=== PATIENT | female | born 1950 | race Hispanic/Latino ===

== ENCOUNTER 2017-03-31 09:55 | Emergency (ER) | payer MEDICARE ==
--- NOTE | 2017-03-31 11:45 | Emergency Department Report ---
HPI - General Chief Complaint: Seizure Time Seen by Provider: 03/31/17 11:07 - HPI HPI: Room 2 The patient is a 67-year-old female presented chief complaint of "shaking and falling." The patient states for the past 5 months she's had episodes where she begins "jerking real bad" and falls to the floor. The patient states she remains conscious during these episodes but they have been occurring nearly every day since October 2016. The patient states she saw her neurologist Dr. Brothers in October and he felt as though she was having seizures and started her on a seizure medication (patient states she cannot remember the name of the medication). The patient states she took it for 3 days but her symptoms worsen so she stopped. The patient states she has not followed up with her neurologist. The patient has seen an information assistant because her right eye "pulls" to the left. Per the patient information assistant has not given her diagnoses as of yet wishes to see her later this month. The patient comes to the emergency department because the symptoms are continuing. The patient states her last episode occurred this morning and they usually last approximately 2-3 minutes. Location: [See above] Duration: 5 months Quality: "Jerking" Severity: Moderate Modifying factors: [see above] Context: [see above] Mode of transportation: [not driving] ED Past Medical Hx - Past Medical History Hx Congestive Heart Failure: Yes Hx Diabetes: Yes Hx GERD: Yes Hx COPD: Yes - Surgical History Hx Open Heart Surgery: Yes - Family History Family history: no significant - Social History Smoking Status: Current Every Day Smoker (1/4 pack per day) Substance Use Type: None (denies illicit drug use) - Medications Home Medications: Home Medications Medication Instructions Recorded Confirmed Last Taken Type AtorvaSTATin 40 mg PO DAILY 06/23/15 06/23/15 06/22/15 History Carvedilol 6.25 mg PO BID 06/23/15 06/23/15 06/22/15 History Duloxetine HCl [Cymbalta] 60 mg PO DAILY 06/23/15 06/23/15 06/22/15 History Furosemide 20 mg PO DAILY 06/23/15 06/23/15 06/22/15 History Gabapentin 300 mg PO TID 06/23/15 06/23/15 06/22/15 History Losartan/Hydrochlorothiazide 100 mg PO DAILY 06/23/15 06/23/1506/21/16 History Nitroglycerin 0.4 mg SL PRN PRN 06/23/15 06/23/15 Unknown History Omeprazole [PriLOSEC] 40 mg PO BID #60 cap 06/23/15 Unknown Rx Potassium 10 meq PO DAILY 06/23/15 06/23/15 06/22/15 History Ventolin HFA 90 mcg INHALATION BID PRN 06/23/15 06/23/15 06/22/15 History metFORMIN 1,000 mg PO BID 06/23/15 06/23/15 06/22/15 History tiZANidine 4 mg PO PRN 06/23/15 06/23/15 Unknown History ED Review of Systems ROS: Stated complaint: SEIZURE Other details as noted in HPI Eyes: other (OD pulls to the left) Neurological: other (jerking) Physical Exam - Physical Exam Vital Signs: Vital Signs 03/31/17 10:01 Temperature 97.6 F Pulse Rate 110 H Respiratory 20 Rate Blood Pressure 81/60 O2 Sat by Pulse 98 Oximetry Physical Exam: GENERAL: The patient is well-developed well-nourished female lying on stretcher not appear to be in acute distress. [] HEENT: Normocephalic. Atraumatic. Extraocular motions are intact. Patient has moist mucous membranes. NECK: Supple. No meningitic signs are noted. Trachea midline CHEST/LUNGS: Clear to auscultation. There is no respiratory distress noted. HEART/CARDIOVASCULAR: Regular. There is no tachycardia. There is no gallop rub or murmur. ABDOMEN: Abdomen is soft, nontender. Patient has normal bowel sounds. There is no abdominal distention. SKIN: There is no rash. There is no edema. There is no diaphoresis. NEURO: The patient is awake, alert, and oriented. The patient is cooperative. The patient has no focal neurologic deficits. The patient has normal speech. Cranial nerves II through XII grossly intact, no drift MUSCULOSKELETAL: There is no evidence of acute injury. ED Course Vital Signs 03/31/17 10:01 Temperature 97.6 F Pulse Rate 110 H Respiratory 20 Rate Blood Pressure 81/60 O2 Sat by Pulse 98 Oximetry - Consultations Consultation #1: 03/31/17 13:09 Dr. Brothers paged 03/31/17 13:[address] Kozinn- states the patient was given a prescription for gabapentin to help with twitching of the superior oblique muscle. Informed of patient's magnesium. He requests the patient call his office to schedule an appointment and she should be able to be seen very soon Consultation #2: 03/31/17 13:[address] Torres regarding magnesium repletion. States he will consult ED Medical Decision Making - Lab Data Result diagrams: 03/31/17 11:40 03/31/17 11:40 Laboratory Tests 03/31/17 03/31/17 03/31/17 10:38 11:40 11:40 WBC 8.4 RBC 4.00 Hgb 13.0 Hct 39.0 MCV 97 MCH 33 H MCHC 33 RDW 13.9 Plt Count 297 Lymph % (Auto) 19.3 [place] % (Auto) 5.4 Eos % (Auto) 2.0 Baso % (Auto) 0.7 Lymph # 1.6 [place] # 0.5 Eos # 0.2 Baso # 0.1 Seg Neutrophils % 72.6 H Seg Neutrophils # 6.1 PT 12.4 INR 0.88 APTT 31.8 Sodium Potassium Chloride Carbon Dioxide Anion Gap BUN Creatinine Estimated GFR BUN/Creatinine Ratio Glucose POC Glucose 196 H Calcium Magnesium Total Creatine Kinase CK-MB (CK-2) CK-MB (CK-2) Rel Index Troponin T TSH Urine Opiates Screen Urine Methadone Screen Ur Barbiturates Screen Ur Phencyclidine Scrn Ur Amphetamines Screen U Benzodiazepines Scrn Urine Cocaine Screen U Marijuana (THC) Screen 03/31/17 03/31/17 03/31/17 11:40 11:40 12:35 WBC RBC Hgb Hct MCV MCH MCHC RDW Plt Count Lymph % (Auto) [place] % (Auto) Eos % (Auto) Baso % (Auto) Lymph # [place] # Eos # Baso # Seg Neutrophils % Seg Neutrophils # PT INR APTT Sodium 135 L Potassium 4.2 Chloride 92.2 L Carbon Dioxide 22 Anion Gap 25 BUN 10 Creatinine 0.5 L Estimated GFR > 60 BUN/Creatinine Ratio 20 Glucose 153 H POC Glucose Calcium 9.6 Magnesium 1.20 L Total Creatine Kinase 50 CK-MB (CK-2) 1.9 CK-MB (CK-2) Rel Index 3.8 Troponin T < 0.010 TSH 0.382 Urine Opiates Screen Presumptive negative Urine Methadone Screen Presumptive negative Ur Barbiturates Screen Presumptive negative Ur Phencyclidine Scrn Presumptive negative Ur Amphetamines Screen Presumptive negative U Benzodiazepines Scrn Presumptive negative Urine Cocaine Screen Presumptive negative U Marijuana (THC) Screen Presumptive negative Laboratory Tests 03/31/17 03/31/17 03/31/17 10:38 11:40 11:40 WBC 8.4 RBC 4.00 Hgb 13.0 Hct 39.0 MCV 97 MCH 33 H MCHC 33 RDW 13.9 Plt Count 297 Lymph % (Auto) 19.3 [place] % (Auto) 5.4 Eos % (Auto) 2.0 Baso % (Auto) 0.7 Lymph # 1.6 [place] # 0.5 Eos # 0.2 Baso # 0.1 Seg Neutrophils % 72.6 H Seg Neutrophils # 6.1 PT 12.4 INR 0.88 APTT 31.8 Sodium Potassium Chloride Carbon Dioxide Anion Gap BUN Creatinine Estimated GFR BUN/Creatinine Ratio Glucose POC Glucose 196 H Calcium Magnesium Total Creatine Kinase CK-MB (CK-2) CK-MB (CK-2) Rel Index Troponin T TSH Urine Opiates Screen Urine Methadone Screen Ur Barbiturates Screen Ur Phencyclidine Scrn Ur Amphetamines Screen U Benzodiazepines Scrn Urine Cocaine Screen U Marijuana (THC) Screen Drugs of Abuse Note 03/31/17 03/31/17 03/31/17 11:40 11:40 12:35 WBC RBC Hgb Hct MCV MCH MCHC RDW Plt Count Lymph % (Auto) [place] % (Auto) Eos % (Auto) Baso % (Auto) Lymph # [place] # Eos # Baso # Seg Neutrophils % Seg Neutrophils # PT INR APTT Sodium 135 L Potassium 4.2 Chloride 92.2 L Carbon Dioxide 22 Anion Gap 25 BUN 10 Creatinine 0.5 L Estimated GFR > 60 BUN/Creatinine Ratio 20 Glucose 153 H POC Glucose Calcium 9.6 Magnesium 1.20 L Total Creatine Kinase 50 CK-MB (CK-2) 1.9 CK-MB (CK-2) Rel Index 3.8 Troponin T < 0.010 TSH 0.382 Urine Opiates Screen Presumptive negative Urine Methadone Screen Presumptive negative Ur Barbiturates Screen Presumptive negative Ur Phencyclidine Scrn Presumptive negative Ur Amphetamines Screen Presumptive negative U Benzodiazepines Scrn Presumptive negative Urine Cocaine Screen Presumptive negative U Marijuana (THC) Screen Presumptive negative Drugs of Abuse Note Disclamer - Radiology Data Radiology results: report reviewed (CT head), image reviewed (CT head) CT HEAD WITHOUT CONTRAST: HISTORY: Seizure. TECHNIQUE: Sequential 2.5mm CT images. COMPARISON: none. FINDINGS: No evidence for hemorrhage, mass or large area of acute ischemia noncontrast CT. There is a focal area of encephalomalacia in the left parietal white matter measuring up to 1.6 cm which probably represents a chronic ischemic insult. There is a similar appearing 5 mm area in the right parietal white matter. Ventricular size is within normal limits. The basal cisterns are clear. The posterior fossa contents are within normal limits. The visualized paranasal sinuses and mastoid air cells are well-aerated. IMPRESSION: No acute intracranial process. 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 Transcribed By: TTR Dictated By: JON DODD JR, MD Electronically Authenticated By: JON DODD JR, MD Signed Date/Time: 03/31/17 1210 DD/ 1209 TD/TT: 03/31/17 1210 - Differential Diagnosis seizures, pseudoseizures, anxiety, multiple sclerosis, hypomagnesemia Critical care attestation.: If time is entered above; I have spent that time in minutes in the direct care of this critically ill patient, excluding procedure time. ED Disposition Clinical Impression: Hypomagnesemia, Twitching Disposition: DC-01 TO HOME OR SELFCARE Is pt being admited?: No Does the pt Need Aspirin: No Condition: Stable Instructions: Hypomagnesemia (ED) Additional Instructions: Return to the emergency department immediately should you develop worsening symptoms, fever, inability to tolerate food or liquid or any other concerns. Referrals: PRIMARY CAREMD [Primary Care Provider] - 3-5 Days LOUIE BROTHERS MD [Staff Physician] - [facility] Time of Disposition: 13:26
[2017-03-31 12:15] LABS: Basophils # (Auto) 0.1 K/mm3 (0.0-0.1); Basophils % (Auto) 0.7 % (0.0-1.8); Eosinophils # (Auto) 0.2 K/mm3 (0.0-0.4); Lymphocytes # (Auto) 1.6 K/mm3 (1.2-5.4); Lymphocytes % (Auto) 19.3 % (13.4-35.0); Mean Corpuscular HGB Conc 33 % (30-34); Mean Corpuscular Hemoglobin 33 pg (28-32); Mean Corpuscular Volume 97 fl (79-97); Monocytes # (Auto) 0.5 K/mm3 (0.0-0.8); Monocytes % (Auto) 5.4 % (0.0-7.3); Platelet Count 297 K/mm3 (140-440); Red Cell Distribution Width 13.9 % (13.2-15.2)
--- NOTE | 2017-03-31 12:16 | Cat Scan Report ---
CT HEAD WITHOUT CONTRAST: HISTORY: Seizure. TECHNIQUE: Sequential 2.5mm CT images. COMPARISON: none. FINDINGS: No evidence for hemorrhage, mass or large area of acute ischemia noncontrast CT. There is a focal area of encephalomalacia in the left parietal white matter measuring up to 1.6 cm which probably represents a chronic ischemic insult. There is a similar appearing 5 mm area in the right parietal white matter. Ventricular size is within normal limits. The basal cisterns are clear. The posterior fossa contents are within normal limits. The visualized paranasal sinuses and mastoid air cells are well-aerated. IMPRESSION: No acute intracranial process. 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
[2017-03-31 12:24] LABS: INR 0.88 (0.87-1.13)
[2017-03-31 12:25] LABS: Partial Thromboplastin Time 31.8 Sec. (24.2-36.6)
[2017-03-31 12:57] LABS: Creatine Kinase MB 1.9 ng/mL (0.0-4.0)
[2017-03-31 12:58] LABS: BUN/Creatinine Ratio 20; Blood Urea Nitrogen 10 mg/dL (7-17); Calcium 9.6 mg/dL (8.4-10.2); Hemolysis Index 22
[2017-03-31 13:06] LABS: Amphetamine Screen,Urine PRESUMPTIVE NEGATIVE; Benzodiazepines Screen,Urine PRESUMPTIVE NEGATIVE; Cannabinoid Screen,Urine PRESUMPTIVE NEGATIVE; Cocaine Screen,Urine PRESUMPTIVE NEGATIVE; Methadone Screen,Urine PRESUMPTIVE NEGATIVE; Opiate Screen,Urine PRESUMPTIVE NEGATIVE
[2017-03-31] MEDS ORDERED: MAGNESIUM SULFATE 2GM/50ML 2 GM/50 ML BAG IV ONE (13:07)
--- NOTE | 2017-03-31 13:36 | History and Physical Report ---
Medications and Allergies Allergies Allergy/AdvReac Type Severity Reaction Status Date / Time acetaminophen [From Tylenol] Allergy CAUSES Verified 06/23/15 10:22 ISSUE WITH LIVER Antihistamines - Alkylamine Allergy Shortness Verified 06/23/15 10:22 of Breath codeine Allergy Headache Verified 06/23/15 10:22 Penicillins Allergy Angioedema Verified 06/23/15 10:22 Sulfa (Sulfonamide Allergy Rash Verified 06/23/15 10:22 Antibiotics) ANTIBIOTICS Allergy Severe EXTREME Uncoded 06/23/15 09:34 STOMACH PAIN Home Medications Medication Instructions Recorded Confirmed Last Taken Type AtorvaSTATin 40 mg PO DAILY 06/23/15 06/23/15 06/22/15 History Carvedilol 6.25 mg PO BID 06/23/15 06/23/15 06/22/15 History Duloxetine HCl [Cymbalta] 60 mg PO DAILY 06/23/15 06/23/15 06/22/15 History Furosemide 20 mg PO DAILY 06/23/15 06/23/15 06/22/15 History Gabapentin 300 mg PO TID 06/23/15 06/23/15 06/22/15 History Losartan/Hydrochlorothiazide 100 mg PO DAILY 06/23/15 06/23/15 06/22/15 History Nitroglycerin 0.4 mg SL PRN PRN 06/23/15 06/23/15 Unknown History Omeprazole [PriLOSEC] 40 mg PO BID #60 cap 06/23/15 Unknown Rx Potassium 10 meq PO DAILY 06/23/15 06/23/15 06/22/15 History Ventolin HFA 90 mcg INHALATION BID PRN 06/23/15 06/23/15 06/22/15 History metFORMIN 1,000 mg PO BID 06/23/15 06/23/15 06/22/15 History tiZANidine 4 mg PO PRN 06/23/15 06/23/15 Unknown History Magnesium 250 mg PO DAILY #5 tablet 03/31/17 Unknown Rx Active Meds: Active Medications Magnesium Sulfate (Magnesium Sulfate 2gm/50ml) 2 gm in 50 mls @ 100 mls/hr IV ONCE ONE Stop: 03/31/17 13:36 Last Admin: 03/31/17 13:34 Dose: 100 mls/hr Exam - Constitutional Vitals: Temp Pulse Resp BP Pulse Ox 97.6 F 110 H 20 81/60 98 03/31/17 10:01 03/31/17 10:01 03/31/17 10:01 03/31/17 10:01 03/31/17 10:01 Results - Labs CBC & Chem 7: 03/31/17 11:40 03/31/17 11:40 Labs: Abnormal lab results 03/31/17 03/31/17 03/31/17 Range/Units 10:38 11:40 11:40 MCH 33 H (28-32) pg Seg Neutrophils % 72.6 H (40.0-70.0) % Sodium 135 L (137-145) mmol/L Chloride 92.2 L (98-107) mmol/L Creatinine 0.5 L (0.7-1.2) mg/dL Glucose 153 H (65-100) mg/dL POC Glucose 196 H (70-105) Magnesium 1.20 L (1.7-2.3) mg/dL
[2017-03-31 13:39] LABS: Free T4 (Free Thyroxine) 1.35 ng/dL (0.76-1.46)
[2017-03-31 14:14] VITALS: BP 134/56
--- NOTE | 2017-04-01 05:39 | Consultation ---
History of Present Illness - Reason for Consult Consult date: 03/31/17 Requesting physician: JOSE L GUZMAN - History of Present Illness 67 YO Female with CHF, DM, GERD, COPD,CAD S/P CABG, Nicotine Dependence presents to ED for evaluation. Pt consult placed for hypomagnesemia. Pt seen and evaluated in ED and found to have no acute complaints. Pt magnesium repleted , and patient treated with oral supplementation. Pt instructed to f/u pcp within 1wk, and neurology at discharge for f/u care. Past History Past Medical History: CAD, COPD, diabetes, GERD, heart failure Past Surgical History: CABG Social history: , smoking Family history: no significant family history (reviewed) Medications and Allergies Allergies Allergy/AdvReac Type Severity Reaction Status Date / Time acetaminophen [From Tylenol] Allergy CAUSES Verified 06/23/15 10:22 ISSUE WITH LIVER Antihistamines - Alkylamine Allergy Shortness Verified 06/23/15 10:22 of Breath codeine Allergy Headache Verified 06/23/15 10:22 Penicillins Allergy Angioedema Verified 06/23/15 10:22 Sulfa (Sulfonamide Allergy Rash Verified 06/23/15 10:22 Antibiotics) ANTIBIOTICS Allergy Severe EXTREME Uncoded 06/23/15 09:34 STOMACH PAIN Home Medications Medication Instructions Recorded Confirmed Last Taken Type AtorvaSTATin 40 mg PO DAILY 06/23/15 06/23/15 06/22/15 History Carvedilol 6.25 mg PO BID 06/23/15 06/23/15 06/22/15 History Duloxetine HCl [Cymbalta] 60 mg PO DAILY 06/23/15 06/23/15 06/22/15 History Furosemide 20 mg PO DAILY 06/23/15 06/23/15 06/22/15 History Gabapentin 300 mg PO TID 06/23/15 06/23/15 06/22/15 History Losartan/Hydrochlorothiazide 100 mg PO DAILY 06/23/15 06/23/15 06/22/15 History Nitroglycerin 0.4 mg SL PRN PRN 06/23/15 06/23/15 Unknown History Omeprazole [PriLOSEC] 40 mg PO BID #60 cap 06/23/15 Unknown Rx Potassium 10 meq PO DAILY 06/23/15 06/23/15 06/22/15 History Ventolin HFA 90 mcg INHALATION BID PRN 06/23/15 06/23/15 06/22/15 History metFORMIN 1,000 mg PO BID 06/23/15 06/23/15 06/22/15 History tiZANidine 4 mg PO PRN 06/23/15 06/23/15 Unknown History Magnesium 250 mg PO DAILY #5 tablet 03/31/17 Unknown Rx Review of Systems Constitutional: no weight loss, no weight gain, no fever, no chills Ears, nose, mouth and throat: no ear pain, no ear discharge, no tinnitis, no decreased hearing, no nose pain Breasts: no change in shape, no swelling, no mass Cardiovascular: no chest pain, no orthopnea, no palpitations, no rapid/ irregular heart beat Respiratory: no cough, no cough with sputum, no excessive sputum, no shortness of breath Gastrointestinal: no abdominal pain, no nausea, no vomiting, no diarrhea Genitourinary Female: no pelvic pain, no flank pain, no menorrhagia, no dysuria , no urinary frequency, no urgency Rectal: no pain, no incontinence, no bleeding Musculoskeletal: no neck stiffness, no neck pain, no shooting arm pain, no arm numbness/tingling, no low back pain Integumentary: no rash, no pruritis, no redness, no sores, no wounds Neurological: no transient paralysis, no paralysis, no weakness, no parathesias , no numbness Psychiatric: no anxiety, no memory loss, no change in sleep habits, no insomnia , no hypersomnia Endocrine: no cold intolerance, no heat intolerance, no polyphagia, no excessive thirst, no polydipsia, no polyuria Hematologic/Lymphatic: no easy bruising, no easy bleeding, no lymphadenopathy, no lymphedema Allergic/Immunologic: no urticaria, no allergic rhinitis, no wheezing, no persistent infections, no anaphylaxis, no angioedema Exam - Constitutional Vitals: Temp Pulse Resp BP Pulse Ox 97.6 F 100 H 16 134/56 95 03/31/17 10:01 03/31/17 14:13 03/31/17 14:13 03/31/17 14:13 03/31/17 14:13 General appearance: Present: obese - EENT Eyes: Present: PERRL ENT: hearing intact, clear oral mucosa - Neck Neck: Present: supple, normal ROM - Respiratory Respiratory effort: normal Respiratory: bilateral: CTA - Cardiovascular Heart Sounds: Present: S1 & S2. Absent: rub, click - Extremities Extremities: pulses symmetrical, No edema Peripheral Pulses: within normal limits - Abdominal General gastrointestinal: Present: soft, non-tender, non-distended, normal bowel sounds Female genitourinary: Present: normal - Integumentary Integumentary: Present: clear, warm, dry - Musculoskeletal Musculoskeletal: gait normal, strength equal bilaterally - Psychiatric Psychiatric: appropriate mood/affect, intact judgment & insight - Neurologic Neurologic: CNII-XII intact, moves all extremities Results - Labs CBC & Chem 7: 03/31/17 11:40 03/31/17 11:40 Labs: Abnormal lab results 03/31/17 03/31/17 03/31/17 Range/Units 10:38 11:40 11:40 MCH 33 H (28-32) pg Seg Neutrophils % 72.6 H (40.0-70.0) % Sodium 135 L (137-145) mmol/L Chloride 92.2 L (98-107) mmol/L Creatinine 0.5 L (0.7-1.2) mg/dL Glucose 153 H (65-100) mg/dL POC Glucose 196 H (70-105) Magnesium 1.20 L (1.7-2.3) mg/dL Assessment and Plan - Patient Problems (1) Hypomagnesemia Status: Acute Plan to address problem: Repleted, F/u pcp 1wk, Neurology at discharge.
== END 2017-03-31 14:14 | disposition home or self-care (01) ==
LOC: ED 09:55
DX: E83.42 Hypomagnesemia (principal); R25.3 Fasciculation
CPT/HCPCS: 36415; 70450; 80048; 80307; 82550; 82553; 82962; 83735; 84439; 84443; 84484; 85025; 85610; 85730; 93005; 93010; 96365; 99284; J3475

== ENCOUNTER 2018-04-23 11:45 | Inpatient (IN) | payer MEDICARE ==
[2018-04-23] MEDS ORDERED: SUBLIMAZE IV ONE (12:13)
[2018-04-23] MEDS ORDERED: ZOFRAN IV ONE (12:13)
--- NOTE | 2018-04-23 12:17 | Emergency Department Report ---
HPI - General Chief Complaint: Fall Time Seen by Provider: 04/23/18 12:00 - HPI HPI: Room 3 The patient is a 68-year-old female presenting with chief complaint of left hip pain. The patient states this morning she began to have one of her "tremors" which causes the left side of her body to go numb. The patient states then her left lower extremity "folded up under "her. Patient now complains of left hip pain and gives a score of 10/10. The patient states she had a drag himself across the floor to seek help. Patient denies loss of consciousness. Patient states she's had her "tremors" for approximately 1 year. The patient states intermittently she has these "tremors" that causes her left arm and left leg to go numb. The patient states the numbness usually lasts around 30 seconds and resolves. The patient states the only numbness that persists currently is in her left hand. Patient states the episode occurred at approximately 10:00 this morning Location: Left hip Duration: [See above] Quality: [See above] Severity: 10 Modifying factors: [see above] Context: [see above] Mode of transportation: [not driving] ED Past Medical Hx - Past Medical History Hx Congestive Heart Failure: Yes Hx Diabetes: Yes Hx GERD: Yes Hx COPD: Yes - Surgical History Hx Open Heart Surgery: Yes (2014) Additional Surgical History: Neck surgery, back surgery - Family History Family history: no significant - Social History Smoking Status: Current Some Day Smoker (cigars) Substance Use Type: None - Medications Home Medications: Home Medications Medication Instructions Recorded Confirmed Last Taken Type Albuterol Sulfate [Ventolin HFA] 2 puff IH Q4H PRN 04/23/18 04/23/18 Unknown History Aspirin [Aspirin EC] 81 mg PO DAILY 04/23/18 04/23/18 Unknown History Atenolol [Tenormin] 50 mg PO DAILY 04/23/18 04/23/18 Unknown History Atorvastatin Calcium 80 mg PO DAILY 04/23/18 04/23/18 Unknown History Duloxetine HCl [Cymbalta] 60 mg PO DAILY 04/23/18 04/23/18 Unknown History Furosemide [Lasix TAB] 40 mg PO QDAY 04/23/18 04/23/18 Unknown History Gabapentin [Neurontin] 600 mg PO BID 04/23/18 04/23/18 Unknown History Losartan [Cozaar] 25 mg PO QDAY 04/23/18 04/23/18 Unknown History Metformin HCl [Glucophage] 1,000 mg PO BID 04/23/18 04/23/18 Unknown History Omeprazole 40 mg PO DAILY 04/23/18 04/23/18 Unknown History Potassium Chloride 10 meq PO DAILY 04/23/18 04/23/18 Unknown History amLODIPine [Norvasc] 5 mg PO DAILY 04/23/18 04/23/18 Unknown History ED Review of Systems ROS: Stated complaint: FALL/HIP PAIN Other details as noted in HPI Constitutional: no symptoms reported Eyes: denies: eye pain ENT: denies: throat pain Respiratory: no symptoms reported Cardiovascular: denies: chest pain Endocrine: no symptoms reported Gastrointestinal: denies: abdominal pain Genitourinary: denies: dysuria Musculoskeletal: arthralgia Neurological: paresthesias Physical Exam - Physical Exam Physical Exam: GENERAL: The patient is well-developed well-nourished female lying on stretcher not appearing to be in acute distress. [] HEENT: Normocephalic. Atraumatic. Extraocular motions are intact. Patient has moist mucous membranes. NECK: Supple. Trachea midline CHEST/LUNGS: Clear to auscultation. There is no respiratory distress noted. HEART/CARDIOVASCULAR: Regular. There is no tachycardia. There is no gallop rub or murmur. ABDOMEN: Abdomen is soft, nontender. Patient has normal bowel sounds. There is no abdominal distention. SKIN: There is no rash. There is no edema. There is no diaphoresis. NEURO: The patient is awake, alert, and oriented. The patient is cooperative. The patient has no focal neurologic deficits. The patient has normal speech. MUSCULOSKELETAL: There is pain of the left hip. There is no tenderness to palpation of the remainder of the left lower extremity, right lower extremity, right upper extremity and left upper extremity. There is no evidence of acute injury. ED Course - Consultations Consultation #1: 04/23/18 14:08 Case discussed with orthopedic surgery Dr. Hull ED Medical Decision Making - Lab Data Result diagrams: 04/23/18 13:11 04/23/18 13:11 Laboratory Tests 04/23/18 04/23/18 04/23/18 13:11 13:11 13:11 WBC 14.7 H RBC 3.43 L Hgb 10.8 Hct 33.2 MCV 97 MCH 32 MCHC 33 RDW 13.8 Plt Count 385 Lymph % (Auto) 4.8 L Stone % (Auto) 4.5 Eos % (Auto) 0.3 Baso % (Auto) 0.5 Lymph # 0.7 L Stone # 0.7 Eos # 0.0 Baso # 0.1 Seg Neutrophils % 89.9 H Seg Neutrophils # 13.2 H PT 13.2 INR 0.95 APTT 20.7 L Thrombin Time 15.2 Sodium 133 L Potassium 4.2 Chloride 87.8 L Carbon Dioxide 22 Anion Gap 27 BUN 12 Creatinine 0.7 Estimated GFR > 60 BUN/Creatinine Ratio 17 Glucose 146 H Calcium 9.5 Blood Type 04/23/18 13:11 WBC RBC Hgb Hct MCV MCH MCHC RDW Plt Count Lymph % (Auto) Stone % (Auto) Eos % (Auto) Baso % (Auto) Lymph # Stone # Eos # Baso # Seg Neutrophils % Seg Neutrophils # PT INR APTT Thrombin Time Sodium Potassium Chloride Carbon Dioxide Anion Gap BUN Creatinine Estimated GFR BUN/Creatinine Ratio Glucose Calcium Blood Type A NEGATIVE - EKG Data -: EKG Interpreted by Me EKG shows normal: sinus rhythm Rate: normal - EKG Data Interpretation: nonspecific ST-T wave carlee (T-wave inversion in lead V2) - Radiology Data Radiology results: report reviewed (CT head), image reviewed (left hip x-ray, CT head) interpreted by me: Left hip x-ray-left femoral neck fracture [facility] [address] [place] [address] Cat Scan Report Signed Patient: ANTONIO CHASE MR#: [id number] : 1950 Acct:[id number] Age/Sex: 68 / F ADM Date: 04/23/18 Loc: ED Attending Dr: Ordering Physician: JOSE L GUZMAN MD Date of Service: 04/23/18 Procedure(s): CT head/brain wo con Accession Number(s): [id number] cc: JOSE L GUZMAN MD FINAL REPORT EXAM: CT HEAD/BRAIN WO CON HISTORY: left-sided numbness, fall COMPARISON: None. TECHNIQUE: Multiple contiguous axial images were obtained from the skullbase to the vertex without administration of IV contrast. FINDINGS: There is age related cerebral cortical atrophy. There is no parenchymal hemorrhage or extra-axial fluid collection. There is no mass or mass effect. There no acute territorial infarct. There is encephalomalacia in the left parietal lobe and left periventricular white matter, which may be due to prior infarct or demyelinating disease. There are patchy areas of decreased attenuation in the subcortical and periventricular white matter, likely due to chronic microvascular ischemic disease. The ventricles are midline. The subarachnoid spaces and basilar cisterns are clear. There is no skull fracture. The paranasal sinuses and mastoid air cells are clear. IMPRESSION: No acute intracranial abnormality. Encephalomalacia in the left parietal lobe that may be due to prior infarct or demyelinating disease. Patchy areas of decreased attenuation in the subcortical and periventricular white matter that may be due to chronic microvascular ischemic disease versus demyelinating disease. Transcribed By: WILEY Dictated By: BENTLEY MCINTYRE MD Electronically Authenticated By: BENTLEY MCINTYRE MD Signed Date/Time: 04/23/18 1322 DD/ 1320 TD/TT: 04/23/18 1320 [facility] [address] [place] [address] XRay Report Signed Patient: ANTONIO CHASE MR#: [id number] : 1950 Acct:[id number] Age/Sex: 68 / F ADM Date: 04/23/18 Loc: ED Attending Dr: Ordering Physician: JOSE L GUZMAN MD Date of Service: 04/23/18 Procedure(s): XR hip 2-3V LT Accession Number(s): [id number] cc: JOSE L GUZMAN MD Fluoro Time In Minutes: LEFT HIP, 2 views: History: Fall, pain Normal bone mineralization. There are essentially 2 AP views of the left hip presented. The left femoral neck is obscured although a left femoral neck fracture is suspected. The pelvis is intact. Normal soft tissues. IMPRESSION: Limited exam. A left femoral neck fracture is suspected although it is poorly imaged on this exam. Please correlate with the patient and consider repeat exam or CT pelvis if further evaluation is needed. Transcribed By: TTR Dictated By: JON DODD JR, MD Electronically Authenticated By: JON DODD JR, MD Signed Date/Time: 04/23/18 1344 DD/ 1343 TD/TT: 04/23/18 1344 - Differential Diagnosis hip fracture, TIAs, hip contusion Critical care attestation.: If time is entered above; I have spent that time in minutes in the direct care of this critically ill patient, excluding procedure time. ED Disposition Clinical Impression: Fracture of femoral neck, left, Acute pain of left hip, Transient neurologic deficit Disposition: OP ADMIT IP TO THIS HOSP Is pt being admited?: Yes Does the pt Need Aspirin: Yes Condition: Fair Time of Disposition: 14:12 (hospitalist paged (Dr Zamarripa))
--- NOTE | 2018-04-23 13:22 | Cat Scan Report ---
FINAL REPORT EXAM: CT HEAD/BRAIN WO CON HISTORY: left-sided numbness, fall COMPARISON: None. TECHNIQUE: Multiple contiguous axial images were obtained from the skullbase to the vertex without a dministration of IV contrast. FINDINGS: There is age related cerebral cortical atrophy. There is no parenchymal hemorrhage or extra-axial flu id collection. There is no mass or mass effect. There no acute territorial infarct. There is encephal omalacia in the left parietal lobe and left periventricular white matter, which may be due to prior i nfarct or demyelinating disease. There are patchy areas of decreased attenuation in the subcortical a nd periventricular white matter, likely due to chronic microvascular ischemic disease. The ventricles are midline. The subarachnoid spaces and basilar cisterns are clear. There is no skull fracture. The paranasal sinuses and mastoid air cells are clear. IMPRESSION: No acute intracranial abnormality. Encephalomalacia in the left parietal lobe that may be due to prior infarct or demyelinating disease. Patchy areas of decreased attenuation in the subcortical and periventricular white matter that may be due to chronic microvascular ischemic disease versus demyelinating disease.
[2018-04-23 13:38] LABS: Basophils # (Auto) 0.1 K/mm3 (0.0-0.1); Basophils % (Auto) 0.5 % (0.0-1.8); Eosinophils % (Auto) 0.3 % (0.0-4.3); Hematocrit 33.2 % (30.3-42.9); Hemoglobin 10.8 gm/dl (10.1-14.3); Lymphocytes # (Auto) 0.7 K/mm3 (1.2-5.4); Lymphocytes % (Auto) 4.8 % (13.4-35.0); Mean Corpuscular HGB Conc 33 % (30-34); Mean Corpuscular Volume 97 fl (79-97); Monocytes # (Auto) 0.7 K/mm3 (0.0-0.8); Monocytes % (Auto) 4.5 % (0.0-7.3); Platelet Count 385 K/mm3 (140-440); Red Blood Count 3.43 M/mm3 (3.65-5.03); Red Cell Distribution Width 13.8 % (13.2-15.2)
[2018-04-23 13:47] LABS: INR 0.95 (0.87-1.13); Partial Thromboplastin Time 20.7 Sec. (24.2-36.6)
--- NOTE | 2018-04-23 13:47 | XRay Report ---
LEFT HIP, 2 views: History: Fall, pain Normal bone mineralization. There are essentially 2 AP views of the left hip presented. The left femoral neck is obscured although a left femoral neck fracture is suspected. The pelvis is intact. Normal soft tissues. IMPRESSION: Limited exam. A left femoral neck fracture is suspected although it is poorly imaged on this exam. Please correlate with the patient and consider repeat exam or CT pelvis if further evaluation is needed.
[2018-04-23 13:48] LABS: Thrombin Time 15.2 Sec. (15.1-19.6)
[2018-04-23 13:52] LABS: BUN/Creatinine Ratio 17; Blood Urea Nitrogen 12 mg/dL (7-17); Calcium 9.5 mg/dL (8.4-10.2); Hemolysis Index 7
[2018-04-23] MEDS ORDERED: ASPIRIN PO ONE (14:13)
[2018-04-23] MEDS ORDERED: DILAUDID IV ONE (14:37)
[2018-04-23] MEDS ORDERED: ZOFRAN IV PRN (17:50)
[2018-04-23] MEDS: DILAUDID IV PRN ×2 (18:07→22:35)
--- NOTE | 2018-04-23 21:30 | Event Note ---
Date: 04/23/18 See Syeda H/p in reports L Hip Fracture
[2018-04-24] MEDS: DILAUDID IV PRN ×5 (01:39→17:26)
[2018-04-24] MEDS ORDERED: SODIUM CHLORIDE FLUSH SYRINGE 10 ML IV PRN (01:54)
[2018-04-24] MEDS ORDERED: TYLENOL PO PRN (01:54)
[2018-04-24] MEDS ORDERED: NACL 0.9% 1000 ML 1,000 ML IV SCH (02:00)
--- NOTE | 2018-04-24 02:21 | History and Physical Report ---
CHIEF COMPLAINT: Left hip pain. HISTORY OF PRESENT ILLNESS: The patient is a 68-year-old female with history of recurrent tremors, diabetes, hypertension, gastroesophageal reflux disease. Apparently was having tremors and fell down. After the fall, the patient has been having left hip pain, which is 10/10 and unable to walk. Unable to move the hip joint. The patient has been having tremors for 1 year and could not be treated properly. The pain is sharp and 10/10. Any movement is an exacerbating factor. Relieving factor is absolute rest. PAST MEDICAL HISTORY: As mentioned, congestive heart failure, diabetes, hypertension, gastroesophageal reflux disease, COPD. PAST SURGICAL HISTORY: Neck surgery and back surgery. Open heart surgery. FAMILY HISTORY: Hypertension. SOCIAL HISTORY: Smokes over a pack a day. CURRENT MEDICATIONS: On the chart: Losartan 25 mg once a day, atorvastatin 80 mg once a day, atenolol 50 mg once a day. REVIEW OF SYSTEMS: Significant for left hip pain, which is severe, 10/10. Also, intermittent tremors. Otherwise, review of systems negative. PHYSICAL EXAMINATION: GENERAL: Elderly female, cooperative during examination. VITAL SIGNS: Temperature 98.4, pulse 98, respirations 18, sats 100%, blood pressure 156/42. HEENT: Unremarkable. Pupils equal and reactive. NECK: Supple, no lymphadenopathy, no thyromegaly. LUNGS: Clear to auscultation and percussion. Good air entry. CARDIOVASCULAR: S1, S2 heard. No gallop, no murmur, no rub. Apical impulse in left fifth intercostal space and midclavicular line. ABDOMEN: Soft and benign. No hepatosplenomegaly. No guarding, no rigidity. Hernial orifices are normal. EXTREMITIES: Left hip joint, decreased range of motion. Abducted and externally rotated. CENTRAL NERVOUS SYSTEM: Alert and oriented x 4, nonfocal exam. SKIN: Normal. LABORATORY DATA: White count is 14,700, H and H is 10.8 and 33.2, platelet count is 385,000. Protime is 13.2, INR is 0.95. Sodium is 133, slightly low; potassium is 4.2, chloride is 87.2, BUN and creatinine is 12 and 0.7, glucose is 146. RADIOLOGICAL DATA: Hip x-ray shows a left hip fracture. Femoral neck fracture is suspected. Head CT within normal limits. ASSESSMENT AND PLAN: 1. Left hip fracture, for ORIF in the morning. Open reduction and internal fixation. In the meantime, pain control. 2. Hypertension. We will hold oral antihypertensives. Initiate the patient on Catapres patch. To be switched back to oral antihypertensives once the surgery is done and the patient is eating. 3. Hyperlipidemia. We will hold the statins for a couple of days. 4. Depression, on duloxetine. We will hold the duloxetine until the surgery is over. 5. Type 2 diabetes. We will hold the metformin and give coverage. Check hemoglobin A1c. 6. Gastroesophageal reflux disease. IV Protonix. 5. Deep venous thrombosis prophylaxis, Lovenox 40 mg subcutaneous daily after the surgery, until then SCDs. JOB# [id number] ARMANI/CHANDA
[2018-04-24] MEDS: HumaLOG SUB-Q SCH ×3 (02:51→13:53)
[2018-04-24] MEDS ORDERED: CATAPRES-TTS PATCH TD SCH (10:00)
[2018-04-24] MEDS: PEPCID IV SCH ×2 (10:10→22:41)
[2018-04-24] MEDS: SODIUM CHLORIDE FLUSH SYRINGE 10 ML IV SCH ×2 (10:20→22:42)
--- NOTE | 2018-04-24 14:09 | Progress Note ---
Assessment and Plan Assessment and plan: Left hip fracture For surgery today Hypertension. Monitor BP Diabetes mellitus type 2. Monitor accucheck Full code status. History Interval history: Left hip pain after fall Hospitalist Physical - Physical exam Narrative exam: GEN: .In mild distress from pain, HEENT: Normocephalic, atraumatic, Neck: supple, No JVD Lungs: Clear to auscultation bilaterally, no wheeze Heart:S1 and S2 regular, no murmurs, rubs or gallop, Abd:soft, non tender, non distended, normal bowel sounds Ext: Tender left hip, no clubbing or cyanosis Neuro: AAO x 3, moves all extremities, no focal neurological signs - Constitutional Vitals: Temp Pulse Resp BP Pulse Ox 99.1 F 77 18 159/43 93 04/24/18 12:15 04/24/18 12:15 04/24/18 12:15 04/24/18 14:05 04/24/18 12:15 Results - Labs CBC & Chem 7: 04/23/18 13:11 04/23/18 13:11 Labs: Laboratory Last Values WBC 14.7 K/mm3 (4.5-11.0) H 04/23/18 13:11 RBC 3.43 M/mm3 (3.65-5.03) L 04/23/18 13:11 Hgb 10.8 gm/dl (10.1-14.3) 04/23/18 13:11 Hct 33.2 % (30.3-42.9) 04/23/18 13:11 MCV 97 fl (79-97) 04/23/18 13:11 MCH 32 pg (28-32) 04/23/18 13:11 MCHC 33 % (30-34) 04/23/18 13:11 RDW 13.8 % (13.2-15.2) 04/23/18 13:11 Plt Count 385 K/mm3 (140-440) 04/23/18 13:11 Lymph % (Auto) 4.8 % (13.4-35.0) L 04/23/18 13:11 [place] % (Auto) 4.5 % (0.0-7.3) 04/23/18 13:11 Eos % (Auto) 0.3 % (0.0-4.3) 04/23/18 13:11 Baso % (Auto) 0.5 % (0.0-1.8) 04/23/18 13:11 Lymph # 0.7 K/mm3 (1.2-5.4) L 04/23/18 13:11 [place] # 0.7 K/mm3 (0.0-0.8) 04/23/18 13:11 Eos # 0.0 K/mm3 (0.0-0.4) 04/23/18 13:11 Baso # 0.1 K/mm3 (0.0-0.1) 04/23/18 13:11 Seg Neutrophils % 89.9 % (40.0-70.0) H 04/23/18 13:11 Seg Neutrophils # 13.2 K/mm3 (1.8-7.7) H 04/23/18 13:11 PT 13.2 Sec. (12.2-14.9) 04/23/18 13:11 INR 0.95 (0.87-1.13) 04/23/18 13:11 APTT 20.7 Sec. (24.2-36.6) L 04/23/18 13:11 Thrombin Time 15.2 Sec. (15.1-19.6) 04/23/18 13:11 Sodium 133 mmol/L (137-145) L 04/23/18 13:11 Potassium 4.2 mmol/L (3.6-5.0) 04/23/18 13:11 Chloride 87.8 mmol/L (98-107) L 04/23/18 13:11 Carbon Dioxide 22 mmol/L (22-30) 04/23/18 13:11 Anion Gap 27 mmol/L 04/23/18 13:11 BUN 12 mg/dL (7-17) 04/23/18 13:11 Creatinine 0.7 mg/dL (0.7-1.2) 04/23/18 13:11 Estimated GFR > 60 ml/min 04/23/18 13:11 BUN/Creatinine Ratio 17 % 04/23/18 13:11 Glucose 146 mg/dL (65-100) H 04/23/18 13:11 POC Glucose 157 (70-105) H 04/24/18 11:12 Hemoglobin A1c 6.1 % (4-6) H 04/23/18 13:11 Calcium 9.5 mg/dL (8.4-10.2) 04/23/18 13:11 Blood Type A NEGATIVE 04/23/18 13:11 Antibody Screen Negative 04/23/18 13:11
[2018-04-24] MEDS ORDERED: SUBLIMAZE ONE (17:39)
[2018-04-24] MEDS ORDERED: AMIDATE IV ONE ×3 (17:39→17:43)
[2018-04-24] MEDS ORDERED: BREVIBLOC IV ONE ×2 (17:50→20:31)
[2018-04-24] MEDS ORDERED: .VANCOMYCIN VIAL ONE (18:47)
[2018-04-24] MEDS ORDERED: DILAUDID ONE (19:18)
[2018-04-24] MEDS ORDERED: TORADOL ONE (19:32)
[2018-04-24] MEDS ORDERED: MARCAINE 0.5% INFILTRATI ONE ×2 (19:32→20:01)
[2018-04-24] MEDS ORDERED: ZOFRAN ONE (19:33)
[2018-04-24] MEDS ORDERED: MORPHINE ONE (19:33)
[2018-04-24] MEDS ORDERED: NACL 0.9% 100 ML ONE (19:33)
[2018-04-24] MEDS ORDERED: NACL ONE (19:33)
[2018-04-24] MEDS ORDERED: MORPHINE IV PRN ×2 (19:59)
[2018-04-24] MEDS ORDERED: PERCOCET 5/325 PO PRN (19:59)
[2018-04-24] MEDS ORDERED: SODIUM CHLORIDE FLUSH SYRINGE 10 ML IV NR (20:00)
[2018-04-24] MEDS ORDERED: NACL 0.9% IV ONE ×2 (20:01)
[2018-04-24] MEDS ORDERED: TORADOL IV ONE (20:01)
[2018-04-24] MEDS ORDERED: MORPHINE IM ONE (20:01)
--- NOTE | 2018-04-24 20:08 | Procedure Note ---
Date of procedure: 04/24/18 Pre-op diagnosis: Displaced left femoral neck fracture Post-op diagnosis: same Procedure: Bipolar hemiarthroplasty left hip Procedure The patient was brought to the OR and placed on the OR table in supine position following induction and intubation by anesthesia the patient was placed in the right lateral decubitus position The left hip was then prepped and draped in the usual sterile manner a timeout procedure was done to identify the patient and the correct operative site. Next a lateral incision was made along the proximal femur was taken down sharply through skin and subcutaneous the fascia dilan was seen and incised A Charnley retractor was placed deep within the wound next the anterior capsule was entered the femoral neck fracture was seen the remaining portion of the femoral neck was then osteotomized in line with a stem template The femoral head was retrieved using measuring the size of the femoral artery and a 45 mm diameter was chosen, followed by reaming and broaching to a #2 stem utilizing a neutral neck and a 28 mm head and the construct was then reduced the hip was taken through a range of motion and was found to be stable. All components were removed. Final components were assembled and inserted the hip was then reduced and taken through a range of motion and again it was found to be stable next the wound was copiously irrigated a cocktail mixture of Toradol and morphine. Again and saline was injected into the surrounding soft tissue for postop pain management following this the wound was closed in a standard routine fashion. Dressings were applied the patient tolerated the procedure there were no complications and he was sent to post anesthesia recovery Anesthesia: GETA Surgeon: KELLI ARMENDARIZ (Zita Zamudio, 1st assistant head cashier) Estimated blood loss: other (300ml) Pathology: none Condition: stable Disposition: PACU
--- NOTE | 2018-04-24 20:10 | Consultation ---
History of Present Illness - HPI Consult date: 04/24/18 Consult reason: fracture Medications and Allergies Allergies Allergy/AdvReac Type Severity Reaction Status Date / Time acetaminophen [From Tylenol] Allergy CAUSES Verified 06/23/15 10:22 ISSUE WITH LIVER Antihistamines - Alkylamine Allergy Shortness Verified 06/23/15 10:22 of Breath codeine Allergy Headache Verified 06/23/15 10:22 Penicillins Allergy Angioedema Verified 06/23/15 10:22 Sulfa (Sulfonamide Allergy Rash Verified 06/23/15 10:22 Antibiotics) ANTIBIOTICS Allergy Severe EXTREME Uncoded 06/23/15 09:34 STOMACH PAIN Home Medications Medication Instructions Recorded Confirmed Last Taken Type Albuterol Sulfate [Ventolin HFA] 2 puff IH Q4H PRN 04/23/18 04/23/18 Unknown History Aspirin [Aspirin EC] 81 mg PO DAILY 04/23/18 04/23/18 Unknown History Atenolol [Tenormin] 50 mg PO DAILY 04/23/18 04/23/18 Unknown History Atorvastatin Calcium 80 mg PO DAILY 04/23/18 04/23/18 Unknown History Duloxetine HCl [Cymbalta] 60 mg PO DAILY 04/23/18 04/23/18 Unknown History Furosemide [Lasix TAB] 40 mg PO QDAY 04/23/18 04/23/18 Unknown History Gabapentin [Neurontin] 600 mg PO BID 04/23/18 04/23/18 Unknown History Losartan [Cozaar] 25 mg PO QDAY 04/23/18 04/23/18 Unknown History Metformin HCl [Glucophage] 1,000 mg PO BID 04/23/18 04/23/18 Unknown History Omeprazole 40 mg PO DAILY 04/23/18 04/23/18 Unknown History Potassium Chloride 10 meq PO DAILY 04/23/18 04/23/18 Unknown History amLODIPine [Norvasc] 5 mg PO DAILY 04/23/18 04/23/18 Unknown History Active Meds: Active Medications Acetaminophen (Tylenol) 650 mg PO Q4H PRN PRN Reason: Pain MILD(1-3)/Fever >100.5/FAULKNER Acetaminophen/Hydrocodone Bitart (Carlyle 5/325) each PO Q6H PRN PRN Reason: Pain, Moderate (4-6) Clonidine HCl (Catapres-Tts Patch) 0.2 mg TD Fr CHRISTOPHER Last Admin: 04/24/18 17:42 Dose: Not Given Documented by: Enoxaparin Sodium (Lovenox) 40 mg SUB-Q QDAY [facility] Famotidine (Pepcid) 20 mg IV BID [facility] Last Admin: 04/24/18 10:10 Dose: 20 mg Documented by: Hydromorphone HCl (Dilaudid) 0.5 mg IV Q3H PRN PRN Reason: Pain , Severe (7-10) Last Admin: 04/24/18 17:26 Dose: 0.5 mg Documented by: Sodium Chloride (Nacl 0.9% 1000 Ml) 1,000 mls @ 75 mls/hr IV DIRECT CHRISTOPHER Stop: 04/25/18 02:00 Insulin Human Lispro (Humalog) 0 unit SUB-Q Q6HR [facility]; Protocol Last Admin: 04/24/18 13:53 Dose: Not Given Documented by: Morphine Sulfate (Morphine) 2 mg IV Q4H PRN PRN Reason: Pain, Moderate (4-6) Morphine Sulfate (Morphine) 4 mg IV Q4H PRN PRN Reason: Pain , Severe (7-10) Ondansetron HCl (Zofran) 4 mg IV Q8H PRN PRN Reason: Nausea And Vomiting Oxycodone/Acetaminophen (Percocet 5/325) 1 tab PO Q6H PRN PRN Reason: Pain, Moderate (4-6) Sodium Chloride (Sodium Chloride Flush Syringe 10 Ml) 10 ml IV BID [facility] Last Admin: 04/24/18 10:20 Dose: 10 ml Documented by: Sodium Chloride (Sodium Chloride Flush Syringe 10 Ml) 10 ml IV PRN PRN PRN Reason: LINE FLUSH Sodium Chloride (Sodium Chloride Flush Syringe 10 Ml) 10 ml IV PRN NR Assessment and Plan Left Femoral neck fracture Recommendations - Bipolar hemiarthroplasty left hip
[2018-04-24] MEDS ORDERED: DILAUDID IV PRN (20:23)
[2018-04-24] MEDS ORDERED: SUBLIMAZE IV PRN (20:23)
--- NOTE | 2018-04-24 20:26 | Anesthesia Day of Surgery ---
Anesthesia Day of Surgery - Day of Surgery Patient Examined: Yes Patient H&P Reviewed: Yes Patient is NPO: Yes
--- NOTE | 2018-04-24 20:27 | Anesthesia Consultation ---
Anesthesia Consult and Med Hx Date of service: 04/24/18 - Pre-Operative Health Status ASA Pre-Surgery Classification: ASA3 Proposed Anesthetic Plan: General - Pulmonary Hx Smoking: Yes (1/2 ppd) COPD: Yes - Cardiovascular System Hx Coronary Artery Disease: Yes (s/p CABG, no DE prior to surgery. HX CHF) Hx Valvular Heart Disease: Yes (MVP) Hx Heart Murmur: Yes (long history) - Central Nervous System CVA: Yes (2011) - Gastrointestinal Hx Gastroesophageal Reflux Disease: Yes - Endocrine Hx Non-Insulin Dependent Diabetes: Yes
[2018-04-24] MEDS ORDERED: NORMODYNE IV ONE (20:44)
--- NOTE | 2018-04-24 20:57 | Post Anesthesia Evaluation ---
- Post Anesthesia Evaluation Patient Participated: Yes Airway Patent: Yes Stable Respiratory Function: Yes Nausea/Vomiting: No Temp > 96.8F: Yes Pain Manageable: Yes Adequeate Hydration: Yes Anesthesia Complications: No Block Receding Appropriately: Not Applicable Patient on Ventilator: No
[2018-04-25] MEDS: HumaLOG SUB-Q SCH ×5 (00:17→18:33)
[2018-04-25 04:36] LABS: Basophils % (Auto) 0.5 % (0.0-1.8); Eosinophils % (Auto) 0.5 % (0.0-4.3); Hematocrit 27.5 % (30.3-42.9); Hemoglobin 9.3 gm/dl (10.1-14.3); Lymphocytes # (Auto) 0.7 K/mm3 (1.2-5.4); Lymphocytes % (Auto) 7.9 % (13.4-35.0); Mean Corpuscular HGB Conc 34 % (30-34); Mean Corpuscular Volume 95 fl (79-97); Monocytes # (Auto) 0.6 K/mm3 (0.0-0.8); Monocytes % (Auto) 7.6 % (0.0-7.3); Platelet Count 319 K/mm3 (140-440); Red Blood Count 2.91 M/mm3 (3.65-5.03); Red Cell Distribution Width 13.6 % (13.2-15.2)
[2018-04-25 04:58] LABS: BUN/Creatinine Ratio 13; Blood Urea Nitrogen 9 mg/dL (7-17); Calcium 7.8 mg/dL (8.4-10.2)
[2018-04-25 04:59] LABS: Alanine Aminotransferase 21 units/L (7-56); Albumin 3.3 g/dL (3.9-5); Hemolysis Index 0
[2018-04-25] MEDS: ZOFRAN IV PRN ×2 (05:10→13:31)
[2018-04-25] MEDS: DILAUDID IV PRN ×3 (05:11→21:22)
[2018-04-25] MEDS: LOVENOX SUB-Q SCH (09:36)
[2018-04-25] MEDS: PEPCID IV SCH ×2 (09:36→21:22)
[2018-04-25] MEDS: NORCO 5/325 PO PRN ×2 (09:37→18:43)
[2018-04-25] MEDS: SODIUM CHLORIDE FLUSH SYRINGE 10 ML IV SCH ×2 (10:24→21:30)
--- NOTE | 2018-04-25 12:09 | Progress Note ---
Assessment and Plan Assessment and plan: Left femoral neck fracture s/p surgery 04/24/[address] Hull Hypertension. Monitor BP Diabetes mellitus type 2. Monitor accucheck Full code status. History Interval history: Left hip pain after fall s/p surgery yesterday Hospitalist Physical - Physical exam Narrative exam: GEN: .In mild distress from pain, HEENT: Normocephalic, atraumatic, Neck: supple, No JVD Lungs: Clear to auscultation bilaterally, no wheeze Heart:S1 and S2 regular, no murmurs, rubs or gallop, Abd:soft, non tender, non distended, normal bowel sounds Ext: Tender left hip, no clubbing or cyanosis, dressing over left hip Neuro: AAO x 3, moves all extremities, no focal neurological signs - Constitutional Vitals: Temp Pulse Resp BP Pulse Ox 99.6 F 111 H 20 153/56 93 04/25/18 04:05 04/25/18 04:05 04/25/18 09:37 04/25/18 04:05 04/25/18 04:05 Results - Labs CBC & Chem 7: 04/25/18 04:09 04/25/18 04:09 Labs: Laboratory Last Values WBC 8.3 K/mm3 (4.5-11.0) 04/25/18 04:09 RBC 2.91 M/mm3 (3.65-5.03) L 04/25/18 04:09 Hgb 9.3 gm/dl (10.1-14.3) L 04/25/18 04:09 Hct 27.5 % (30.3-42.9) L 04/25/18 04:09 MCV 95 fl (79-97) 04/25/18 04:09 MCH 32 pg (28-32) 04/25/18 04:09 MCHC 34 % (30-34) 04/25/18 04:09 RDW 13.6 % (13.2-15.2) 04/25/18 04:09 Plt Count 319 K/mm3 (140-440) 04/25/18 04:09 Lymph % (Auto) 7.9 % (13.4-35.0) L 04/25/18 04:09 [place] % (Auto) 7.6 % (0.0-7.3) H 04/25/18 04:09 Eos % (Auto) 0.5 % (0.0-4.3) 04/25/18 04:09 Baso % (Auto) 0.5 % (0.0-1.8) 04/25/18 04:09 Lymph # 0.7 K/mm3 (1.2-5.4) L 04/25/18 04:09 [place] # 0.6 K/mm3 (0.0-0.8) 04/25/18 04:09 Eos # 0.0 K/mm3 (0.0-0.4) 04/25/18 04:09 Baso # 0.0 K/mm3 (0.0-0.1) 04/25/18 04:09 Seg Neutrophils % 83.5 % (40.0-70.0) H 04/25/18 04:09 Seg Neutrophils # 7.0 K/mm3 (1.8-7.7) 04/25/18 04:09 PT 13.2 Sec. (12.2-14.9) 04/23/18 13:11 INR 0.95 (0.87-1.13) 04/23/18 13:11 APTT 20.7 Sec. (24.2-36.6) L 04/23/18 13:11 Thrombin Time 15.2 Sec. (15.1-19.6) 04/23/18 13:11 Sodium 136 mmol/L (137-145) L 04/25/18 04:09 Potassium 4.3 mmol/L (3.6-5.0) 04/25/18 04:09 Chloride 97.8 mmol/L (98-107) L 04/25/18 04:09 Carbon Dioxide 28 mmol/L (22-30) 04/25/18 04:09 Anion Gap 15 mmol/L 04/25/18 04:09 BUN 9 mg/dL (7-17) 04/25/18 04:09 Creatinine 0.7 mg/dL (0.7-1.2) 04/25/18 04:09 Estimated GFR > 60 ml/min 04/25/18 04:09 BUN/Creatinine Ratio 13 % 04/25/18 04:09 Glucose 140 mg/dL (65-100) H 04/25/18 04:09 POC Glucose 171 (70-105) H 04/25/18 05:26 Hemoglobin A1c 6.1 % (4-6) H 04/23/18 13:11 Calcium 7.8 mg/dL (8.4-10.2) L D 04/25/18 04:09 Total Bilirubin 0.30 mg/dL (0.1-1.2) 04/25/18 04:09 AST 32 units/L (5-40) 04/25/18 04:09 ALT 21 units/L (7-56) 04/25/18 04:09 Alkaline Phosphatase 81 units/L (35-129) 04/25/18 04:09 Total Protein 5.8 g/dL (6.3-8.2) L 04/25/18 04:09 Albumin 3.3 g/dL (3.9-5) L 04/25/18 04:09 Albumin/Globulin Ratio 1.3 % 04/25/18 04:09 Blood Type A NEGATIVE 04/23/18 13:11 Antibody Screen Negative 04/23/18 13:11
[2018-04-26] MEDS: HumaLOG SUB-Q SCH ×3 (00:14→12:08)
[2018-04-26] MEDS: DILAUDID IV PRN ×2 (03:47→15:43)
[2018-04-26] MEDS: NORCO 5/325 PO PRN ×2 (08:24→17:43)
[2018-04-26] MEDS: LOVENOX SUB-Q SCH (09:24)
[2018-04-26] MEDS: PEPCID IV SCH ×2 (09:24→21:27)
[2018-04-26] MEDS: ZOFRAN IV PRN ×2 (09:24→23:14)
[2018-04-26] MEDS: SODIUM CHLORIDE FLUSH SYRINGE 10 ML IV SCH ×2 (10:45→21:29)
--- NOTE | 2018-04-26 12:16 | Progress Note ---
Assessment and Plan Assessment and plan: Left femoral neck fracture s/p surgery 04/24/[address] Hull physical therapy Hypertension. Monitor BP Diabetes mellitus type 2. Monitor accucheck Full code status. Hopefully dc home in 1-2 days History Interval history: Left hip pain after fall s/p surgery 04/24 Hospitalist Physical - Physical exam Narrative exam: GEN: Not in acute distress, HEENT: Normocephalic, atraumatic, Neck: supple, No JVD Lungs: Clear to auscultation bilaterally, no wheeze Heart:S1 and S2 regular, no murmurs, rubs or gallop, Abd:soft, non tender, non distended, normal bowel sounds Ext: Tender left hip, no clubbing or cyanosis, dressing over left hip Neuro: AAO x 3, moves all extremities, no focal neurological signs - Constitutional Vitals: Temp Pulse Resp BP Pulse Ox 98.1 F 102 H 18 148/48 95 04/26/18 08:00 04/26/18 08:00 04/26/18 08:00 04/26/18 08:00 04/26/18 09:07 Results - Labs CBC & Chem 7: 04/25/18 04:09 04/25/18 04:09 Labs: Laboratory Last Values WBC 8.3 K/mm3 (4.5-11.0) 04/25/18 04:09 RBC 2.91 M/mm3 (3.65-5.03) L 04/25/18 04:09 Hgb 9.3 gm/dl (10.1-14.3) L 04/25/18 04:09 Hct 27.5 % (30.3-42.9) L 04/25/18 04:09 MCV 95 fl (79-97) 04/25/18 04:09 MCH 32 pg (28-32) 04/25/18 04:09 MCHC 34 % (30-34) 04/25/18 04:09 RDW 13.6 % (13.2-15.2) 04/25/18 04:09 Plt Count 319 K/mm3 (140-440) 04/25/18 04:09 Lymph % (Auto) 7.9 % (13.4-35.0) L 04/25/18 04:09 [place] % (Auto) 7.6 % (0.0-7.3) H 04/25/18 04:09 Eos % (Auto) 0.5 % (0.0-4.3) 04/25/18 04:09 Baso % (Auto) 0.5 % (0.0-1.8) 04/25/18 04:09 Lymph # 0.7 K/mm3 (1.2-5.4) L 04/25/18 04:09 [place] # 0.6 K/mm3 (0.0-0.8) 04/25/18 04:09 Eos # 0.0 K/mm3 (0.0-0.4) 04/25/18 04:09 Baso # 0.0 K/mm3 (0.0-0.1) 04/25/18 04:09 Seg Neutrophils % 83.5 % (40.0-70.0) H 04/25/18 04:09 Seg Neutrophils # 7.0 K/mm3 (1.8-7.7) 04/25/18 04:09 PT 13.2 Sec. (12.2-14.9) 04/23/18 13:11 INR 0.95 (0.87-1.13) 04/23/18 13:11 APTT 20.7 Sec. (24.2-36.6) L 04/23/18 13:11 Thrombin Time 15.2 Sec. (15.1-19.6) 04/23/18 13:11 Sodium 136 mmol/L (137-145) L 04/25/18 04:09 Potassium 4.3 mmol/L (3.6-5.0) 04/25/18 04:09 Chloride 97.8 mmol/L (98-107) L 04/25/18 04:09 Carbon Dioxide 28 mmol/L (22-30) 04/25/18 04:09 Anion Gap 15 mmol/L 04/25/18 04:09 BUN 9 mg/dL (7-17) 04/25/18 04:09 Creatinine 0.7 mg/dL (0.7-1.2) 04/25/18 04:09 Estimated GFR > 60 ml/min 04/25/18 04:09 BUN/Creatinine Ratio 13 % 04/25/18 04:09 Glucose 140 mg/dL (65-100) H 04/25/18 04:09 POC Glucose 197 (70-105) H 04/26/18 11:33 Hemoglobin A1c 6.1 % (4-6) H 04/23/18 13:11 Calcium 7.8 mg/dL (8.4-10.2) L D 04/25/18 04:09 Total Bilirubin 0.30 mg/dL (0.1-1.2) 04/25/18 04:09 AST 32 units/L (5-40) 04/25/18 04:09 ALT 21 units/L (7-56) 04/25/18 04:09 Alkaline Phosphatase 81 units/L (35-129) 04/25/18 04:09 Total Protein 5.8 g/dL (6.3-8.2) L 04/25/18 04:09 Albumin 3.3 g/dL (3.9-5) L 04/25/18 04:09 Albumin/Globulin Ratio 1.3 % 04/25/18 04:09 Blood Type A NEGATIVE 04/23/18 13:11 Antibody Screen Negative 04/23/18 13:11
[2018-04-26] MEDS ORDERED: NON-FORMULARY (Omeprazole [Omeprazole] 40 MG) PO SCH (16:15)
[2018-04-26] MEDS: GLUCOPHAGE PO SCH (17:43)
[2018-04-26] MEDS: NEURONTIN PO SCH (21:27)
[2018-04-26] MEDS: TENORMIN PO SCH (21:43)
[2018-04-26] MEDS ORDERED: NON-FORMULARY (Atorvastatin Calcium [Atorvastatin Calcium] 80 MG) PO SCH (22:00)
[2018-04-26] MEDS ORDERED: NON-FORMULARY (Gabapentin [Neurontin] 600 MG) PO SCH (22:00)
[2018-04-26] MEDS ORDERED: NON-FORMULARY (Metformin Hcl [Glucophage] 1,000 MG) PO SCH (22:00)
--- NOTE | 2018-04-26 23:16 | XRay Report ---
FINAL REPORT PROCEDURE: XR HIP 2-3V LT TECHNIQUE: LEFT hip radiographs, 2 views each, including AP view of the pelvis. HISTORY: post op evaluation COMPARISON: No prior studies are available for comparison. FINDINGS: Fracture (s) and/or Dislocation(s): No acute fracture identified on this study. There has been left h ip arthroplasty Joint space(s): There been a left hip arthroplasty. The hardware is appropriately positioned. Soft tissues: Normal. Bone mineralization: Normal. Foreign bodies: None. IMPRESSION: Left hip arthroplasty with hardware appropriately positioned.
[2018-04-27] MEDS: HumaLOG SUB-Q SCH ×3 (03:01→13:34)
[2018-04-27 07:45] LABS: Hematocrit 25.4 % (30.3-42.9); Hemoglobin 8.4 gm/dl (10.1-14.3)
[2018-04-27] MEDS: GLUCOPHAGE PO SCH ×2 (09:32→17:11)
[2018-04-27] MEDS: DILAUDID IV PRN (11:18)
[2018-04-27] MEDS: NEURONTIN PO SCH ×2 (13:20→22:49)
[2018-04-27] MEDS: PEPCID IV SCH ×2 (13:20→22:49)
[2018-04-27] MEDS: LOVENOX SUB-Q SCH (13:20)
[2018-04-27] MEDS: TENORMIN PO SCH (13:23)
[2018-04-27] MEDS: SODIUM CHLORIDE FLUSH SYRINGE 10 ML IV SCH ×2 (13:25→22:50)
[2018-04-27] MEDS: COZAAR PO SCH (13:25)
[2018-04-27] MEDS: NORVASC PO SCH (13:25)
[2018-04-27] MEDS: NORCO 5/325 PO PRN (17:16)
--- NOTE | 2018-04-27 17:20 | Progress Note ---
Assessment and Plan Status post bipolar hemiarthroplasty left hip doing well Continue physical therapy and observation Subjective Date of service: 04/27/18 Interval history: No complaints doing well once to go home upon discharge Objective Vital signs: Vital Signs - 12hr 04/27/18 04/27/18 04/27/18 08:00 08:09 12:00 Temperature 98.0 F 98.3 F Pulse Rate 71 73 Respiratory 16 16 Rate Blood Pressure 145/40 Blood Pressure 138/43 [Left] O2 Sat by Pulse 93 93 98 Oximetry Narrative Exam: Left hip - postoperative dressings intact moderate swelling compartments soft good passive range of motion - Labs CBC & BMP: 04/27/18 07:08 04/25/18 04:09 Labs: Abnormal lab results 04/26/18 04/27/18 04/27/18 Range/Units 21:49 06:15 07:08 Hgb 8.4 L (10.1-14.3) gm/dl Hct 25.4 L (30.3-42.9) % POC Glucose 173 H 168 H (70-105) 04/27/18 04/27/18 Range/Units 12:19 16:00 Hgb (10.1-14.3) gm/dl Hct (30.3-42.9) % POC Glucose 143 H 136 H (70-105)
--- NOTE | 2018-04-27 18:16 | Progress Note ---
Assessment and Plan Assessment and plan: Left femoral neck fracture s/p surgery 04/24/[address] Hull physical therapy patient evaluated by PT and acute rehab recommended. I discussed with case management Hypertension. Monitor BP Diabetes mellitus type 2. Monitor accucheck Full code status. Stable to dc. awaiting acute rehab placement History Interval history: Left hip pain after fall s/p surgery 04/24 Pain improved Hospitalist Physical - Physical exam Narrative exam: GEN: Not in acute distress, HEENT: Normocephalic, atraumatic, Neck: supple, No JVD Lungs: Clear to auscultation bilaterally, no wheeze Heart:S1 and S2 regular, no murmurs, rubs or gallop, Abd:soft, non tender, non distended, normal bowel sounds Ext: Tender left hip, no clubbing or cyanosis, dressing over left hip Neuro: AAO x 3, moves all extremities, no focal neurological signs - Constitutional Vitals: Temp Pulse Resp BP Pulse Ox 97.8 F 67 16 146/47 98 04/27/18 17:00 04/27/18 17:00 04/27/18 17:00 04/27/18 17:00 04/27/18 17:00 Results - Labs CBC & Chem 7: 04/27/18 07:08 04/25/18 04:09 Labs: Laboratory Last Values WBC 8.3 K/mm3 (4.5-11.0) 04/25/18 04:09 RBC 2.91 M/mm3 (3.65-5.03) L 04/25/18 04:09 Hgb 8.4 gm/dl (10.1-14.3) L 04/27/18 07:08 Hct 25.4 % (30.3-42.9) L 04/27/18 07:08 MCV 95 fl (79-97) 04/25/18 04:09 MCH 32 pg (28-32) 04/25/18 04:09 MCHC 34 % (30-34) 04/25/18 04:09 RDW 13.6 % (13.2-15.2) 04/25/18 04:09 Plt Count 319 K/mm3 (140-440) 04/25/18 04:09 Lymph % (Auto) 7.9 % (13.4-35.0) L 04/25/18 04:09 [place] % (Auto) 7.6 % (0.0-7.3) H 04/25/18 04:09 Eos % (Auto) 0.5 % (0.0-4.3) 04/25/18 04:09 Baso % (Auto) 0.5 % (0.0-1.8) 04/25/18 04:09 Lymph # 0.7 K/mm3 (1.2-5.4) L 04/25/18 04:09 [place] # 0.6 K/mm3 (0.0-0.8) 04/25/18 04:09 Eos # 0.0 K/mm3 (0.0-0.4) 04/25/18 04:09 Baso # 0.0 K/mm3 (0.0-0.1) 04/25/18 04:09 Seg Neutrophils % 83.5 % (40.0-70.0) H 04/25/18 04:09 Seg Neutrophils # 7.0 K/mm3 (1.8-7.7) 04/25/18 04:09 PT 13.2 Sec. (12.2-14.9) 04/23/18 13:11 INR 0.95 (0.87-1.13) 04/23/18 13:11 APTT 20.7 Sec. (24.2-36.6) L 04/23/18 13:11 Thrombin Time 15.2 Sec. (15.1-19.6) 04/23/18 13:11 Sodium 136 mmol/L (137-145) L 04/25/18 04:09 Potassium 4.3 mmol/L (3.6-5.0) 04/25/18 04:09 Chloride 97.8 mmol/L (98-107) L 04/25/18 04:09 Carbon Dioxide 28 mmol/L (22-30) 04/25/18 04:09 Anion Gap 15 mmol/L 04/25/18 04:09 BUN 9 mg/dL (7-17) 04/25/18 04:09 Creatinine 0.7 mg/dL (0.7-1.2) 04/25/18 04:09 Estimated GFR > 60 ml/min 04/25/18 04:09 BUN/Creatinine Ratio 13 % 04/25/18 04:09 Glucose 140 mg/dL (65-100) H 04/25/18 04:09 POC Glucose 136 (70-105) H 04/27/18 16:00 Hemoglobin A1c 6.1 % (4-6) H 04/23/18 13:11 Calcium 7.8 mg/dL (8.4-10.2) L D 04/25/18 04:09 Total Bilirubin 0.30 mg/dL (0.1-1.2) 04/25/18 04:09 AST 32 units/L (5-40) 04/25/18 04:09 ALT 21 units/L (7-56) 04/25/18 04:09 Alkaline Phosphatase 81 units/L (35-129) 04/25/18 04:09 Total Protein 5.8 g/dL (6.3-8.2) L 04/25/18 04:09 Albumin 3.3 g/dL (3.9-5) L 04/25/18 04:09 Albumin/Globulin Ratio 1.3 % 04/25/18 04:09 Blood Type A NEGATIVE 04/23/18 13:11 Antibody Screen Negative 04/23/18 13:11
[2018-04-27] MEDS: PROTONIX PO SCH (22:48)
[2018-04-28] MEDS: HumaLOG SUB-Q SCH ×3 (00:36→12:00)
[2018-04-28] MEDS: NORCO 5/325 PO PRN (02:15)
[2018-04-28] MEDS: GLUCOPHAGE PO SCH (08:38)
[2018-04-28] MEDS: LOVENOX SUB-Q SCH (09:33)
[2018-04-28] MEDS: NEURONTIN PO SCH (09:33)
[2018-04-28] MEDS: NORVASC PO SCH (09:33)
[2018-04-28] MEDS: PEPCID IV SCH (09:34)
[2018-04-28] MEDS: TENORMIN PO SCH (09:34)
[2018-04-28] MEDS: PROTONIX PO SCH (09:35)
[2018-04-28] MEDS: COZAAR PO SCH (09:35)
[2018-04-28] MEDS: SODIUM CHLORIDE FLUSH SYRINGE 10 ML IV SCH (09:36)
--- NOTE | 2018-04-28 11:14 | Progress Note ---
Assessment and Plan Assessment and plan: Left femoral neck fracture s/p surgery 04/24/[address] Hull physical therapy patient evaluated by PT and acute rehab recommended. I discussed with case management Hypertension. Monitor BP Diabetes mellitus type 2. Monitor accucheck Full code status. Stable to dc. awaiting acute rehab placement History Interval history: No new issues overnight. Hospitalist Physical - Constitutional Vitals: Temp Pulse Resp BP Pulse Ox 97.4 F L 62 18 154/47 99 04/28/18 08:00 04/28/18 09:35 04/28/18 08:00 04/28/18 09:35 04/28/18 07:22 General appearance: Present: no acute distress, well-nourished - EENT Eyes: Present: PERRL, EOM intact ENT: hearing intact, clear oral mucosa, dentition normal - Neck Neck: Present: supple, normal ROM - Respiratory Respiratory effort: normal Respiratory: bilateral: CTA - Cardiovascular Rhythm: regular Heart Sounds: Present: S1 & S2. Absent: gallop, rub - Extremities Extremities: no ischemia, No edema, Full ROM - Abdominal General gastrointestinal: soft, non-tender, non-distended, normal bowel sounds - Integumentary Integumentary: Present: clear, warm, dry - Neurologic Neurologic: CNII-XII intact, moves all extremities Results - Labs CBC & Chem 7: 04/27/18 07:08 04/25/18 04:09 Labs: Laboratory Last Values WBC 8.3 K/mm3 (4.5-11.0) 04/25/18 04:09 RBC 2.91 M/mm3 (3.65-5.03) L 04/25/18 04:09 Hgb 8.4 gm/dl (10.1-14.3) L 04/27/18 07:08 Hct 25.4 % (30.3-42.9) L 04/27/18 07:08 MCV 95 fl (79-97) 04/25/18 04:09 MCH 32 pg (28-32) 04/25/18 04:09 MCHC 34 % (30-34) 04/25/18 04:09 RDW 13.6 % (13.2-15.2) 04/25/18 04:09 Plt Count 319 K/mm3 (140-440) 04/25/18 04:09 Lymph % (Auto) 7.9 % (13.4-35.0) L 04/25/18 04:09 [place] % (Auto) 7.6 % (0.0-7.3) H 04/25/18 04:09 Eos % (Auto) 0.5 % (0.0-4.3) 04/25/18 04:09 Baso % (Auto) 0.5 % (0.0-1.8) 04/25/18 04:09 Lymph # 0.7 K/mm3 (1.2-5.4) L 04/25/18 04:09 [place] # 0.6 K/mm3 (0.0-0.8) 04/25/18 04:09 Eos # 0.0 K/mm3 (0.0-0.4) 04/25/18 04:09 Baso # 0.0 K/mm3 (0.0-0.1) 04/25/18 04:09 Seg Neutrophils % 83.5 % (40.0-70.0) H 04/25/18 04:09 Seg Neutrophils # 7.0 K/mm3 (1.8-7.7) 04/25/18 04:09 PT 13.2 Sec. (12.2-14.9) 04/23/18 13:11 INR 0.95 (0.87-1.13) 04/23/18 13:11 APTT 20.7 Sec. (24.2-36.6) L 04/23/18 13:11 Thrombin Time 15.2 Sec. (15.1-19.6) 04/23/18 13:11 Sodium 136 mmol/L (137-145) L 04/25/18 04:09 Potassium 4.3 mmol/L (3.6-5.0) 04/25/18 04:09 Chloride 97.8 mmol/L (98-107) L 04/25/18 04:09 Carbon Dioxide 28 mmol/L (22-30) 04/25/18 04:09 Anion Gap 15 mmol/L 04/25/18 04:09 BUN 9 mg/dL (7-17) 04/25/18 04:09 Creatinine 0.7 mg/dL (0.7-1.2) 04/25/18 04:09 Estimated GFR > 60 ml/min 04/25/18 04:09 BUN/Creatinine Ratio 13 % 04/25/18 04:09 Glucose 140 mg/dL (65-100) H 04/25/18 04:09 POC Glucose 165 (70-105) H 04/28/18 06:02 Hemoglobin A1c 6.1 % (4-6) H 04/23/18 13:11 Calcium 7.8 mg/dL (8.4-10.2) L D 04/25/18 04:09 Total Bilirubin 0.30 mg/dL (0.1-1.2) 04/25/18 04:09 AST 32 units/L (5-40) 04/25/18 04:09 ALT 21 units/L (7-56) 04/25/18 04:09 Alkaline Phosphatase 81 units/L (35-129) 04/25/18 04:09 Total Protein 5.8 g/dL (6.3-8.2) L 04/25/18 04:09 Albumin 3.3 g/dL (3.9-5) L 04/25/18 04:09 Albumin/Globulin Ratio 1.3 % 04/25/18 04:09 Blood Type A NEGATIVE 04/23/18 13:11 Antibody Screen Negative 04/23/18 13:11
--- NOTE | 2018-04-28 14:20 | Discharge Summary ---
Providers - Providers Date of Admission: 04/23/18 14:33 Date of discharge: 04/28/18 Attending physician: YASH PINK 04/23/18 14:04 Consult to Physician [CONS] Urgent Comment: Consulting Provider: KELLI HULL Physician Instructions: Reason For Exam: left femoral neck fracture 04/24/18 19:59 Consult to Case Management [CONS] Routine Services Needed at Discharge: [facility] Physical Therapy Notified:: cm notified 04/24/18 20:02 Physical Therapy Evaluation and Treat [CONS] Routine Comment: Reason For Exam: post op evaluation Mode of Transport?: Walker Weight bearing status?: Full wt bearing Assistive devices?: Yes If so list: Walker Primary care physician: [employer]WORK [employer] Hospitalization Reason for admission: hip fx Condition: Fair Hospital course: 68-year-old female who presented with chief complaint of left-sided hip pain. Patient was found to have left hip fracture. Patient was seen by orthopedics in consultation and underwent bipolar hemiarthroplasty of the left hip. The patient tolerated the procedure well. Patient was seen by physical therapy who recommended acute rehabilitation. However, patient refused. Patient discussed with orthopedics possibility of going home with home health PT. Dr. Hull approved the discharge. Therefore patient will be discharged with a rolling walker and home health PT. Dedicated discharge time 32 minutes. Disposition: [id number] HOME UNDER HOME [facility] Time spent for discharge: 32 - Discharge Diagnoses (1) Acute pain of left hip Status: Acute (2) Fracture of femoral neck, left Status: Acute Core Measure Documentation - Palliative Care Palliative Care/ Comfort Measures: Not Applicable - Core Measures Any of the following diagnoses?: none Exam - Constitutional Vitals: Temp Pulse Resp BP Pulse Ox 97.4 F L 62 18 154/47 99 04/28/18 08:00 04/28/18 09:35 04/28/18 08:00 04/28/18 09:35 04/28/18 07:22 General appearance: Present: no acute distress, well-nourished - EENT Eyes: Present: PERRL ENT: hearing intact, clear oral mucosa - Neck Neck: Present: supple, normal ROM - Respiratory Respiratory effort: normal Respiratory: bilateral: CTA - Cardiovascular Heart Sounds: Present: S1 & S2. Absent: rub, click - Extremities Extremities: pulses symmetrical, No edema Peripheral Pulses: within normal limits - Abdominal General gastrointestinal: Present: soft, non-tender, non-distended, normal bowel sounds Female genitourinary: Present: normal - Integumentary Integumentary: Present: clear, warm, dry - Musculoskeletal Musculoskeletal: gait normal, strength equal bilaterally - Psychiatric Psychiatric: appropriate mood/affect, intact judgment & insight - Neurologic Neurologic: CNII-XII intact, moves all extremities Plan Activity: advance as tolerated Weight Bearing Status: Weight Bear as Tolerated Diet: diabetic Special Instructions: physical therapy, home health RN Durable Medical Equipment Needed Upon Discharge: Walker-Rolling Follow up with: PRIMARY CARE,MD [Primary Care Provider] - 3-5 Days Prescriptions: amLODIPine [Norvasc] 5 mg PO DAILY #30 tablet Atenolol [Tenormin] 50 mg PO DAILY #30 tablet Atorvastatin Calcium 80 mg PO DAILY #30 tablet Duloxetine HCl [Cymbalta] 60 mg PO DAILY #30 capsule. Gabapentin [Neurontin] 600 mg PO BID #60 capsule Gabapentin [Neurontin] 600 mg PO BID #60 tablet HYDROcodone/APAP 5-325 [[place] 5-325 mg TAB] 1 each PO Q6H PRN #15 tablet PRN Reason: Pain, Moderate (4-6) Losartan [Cozaar] 25 mg PO QDAY #30 tablet Metformin HCl [Glucophage] 1,000 mg PO BID #60 tablet Omeprazole 40 mg PO DAILY #30 capsule.
[2018-04-28 14:54] VITALS: BP 132/40
== END 2018-04-28 17:00 | disposition home health service (06) | DRG 470 ==
LOC: ED 11:45 → 3B-SURG 14:33
PROVIDERS: ADMIT Internal Medicine; ATTEND Hospitalist
PROC: 0SRS0JZ Replacement of Left Hip Joint, Femoral Surface with Synthetic Substitute, Open Approach (ICD-10-PCS; principal; 2018-04-24)
PROC: 3E0U33Z Introduction of Anti-inflammatory into Joints, Percutaneous Approach (ICD-10-PCS; 2018-04-24)
DX: S72.002A Fracture of unspecified part of neck of left femur, initial encounter for closed fracture (principal); E11.9 Type 2 diabetes mellitus without complications; I50.9 Heart failure, unspecified; K21.9 Gastro-esophageal reflux disease without esophagitis; I11.0 Hypertensive heart disease with heart failure; F17.200 Nicotine dependence, unspecified, uncomplicated; S72.092A Other fracture of head and neck of left femur, initial encounter for closed fracture; F32.9 Major depressive disorder, single episode, unspecified; F17.290 Nicotine dependence, other tobacco product, uncomplicated; I25.10 Atherosclerotic heart disease of native coronary artery without angina pectoris; R29.818 Other symptoms and signs involving the nervous system; W18.39XA Other fall on same level, initial encounter; Y93.89 Activity, other specified; Y92.098 Other place in other non-institutional residence as the place of occurrence of the external cause; Y99.8 Other external cause status; Z82.49 Family history of ischemic heart disease and other diseases of the circulatory system; Z79.84 Long term (current) use of oral hypoglycemic drugs; Z88.1 Allergy status to other antibiotic agents; Z88.0 Allergy status to penicillin; Z88.2 Allergy status to sulfonamides; Z88.8 Allergy status to other drugs, medicaments and biological substances; Z79.82 Long term (current) use of aspirin; Z79.899 Other long term (current) drug therapy; Z95.1 Presence of aortocoronary bypass graft; Z86.73 Personal history of transient ischemic attack (TIA), and cerebral infarction without residual deficits
CPT/HCPCS: 36415; 70450; 80048; 80053; 82962; 83036; 85014; 85018; 85025; 85610; 85670; 85730; 86850; 86900; 86901; 93005; 93010; G0378; A9270-GY; C1776; J1170; J1650; J1815; J1885; J2270; J2405; J3010; J3370; J7030

== ENCOUNTER 2018-05-06 11:25 | Emergency (ER) | payer MEDICARE ==
--- NOTE | 2018-05-06 11:46 | Emergency Department Report ---
ED General Adult HPI - General Stated complaint: ARMS/LEGS NUMB Time Seen by Provider: 05/06/18 11:26 - History of Present Illness Initial comments: Mrs. Cahvis is a 68 yo female who is 12 days s/p surgical repair of femoral neck fracture. She presents today with recurrent tremor and numbness in left arm. The tremor and numbness has been present for 2 years. Today, she had f/u with orthopedic Dr. Hull today. Upon return to her home, she felt overwhelmed. She needs assistance at home. She has difficulty maneuvering the walker with tremor and numbness in left arm. She denies paralyis. She was ambulatory according to EMS with intact strength in both arms. 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 She lives alone at home. She does not have any family members who are alive or present. Further medical history: Diabetes, hypertension, GERD, CAD status post CABG. COPD -: year(s) (2) Location: left, upper extremity Consistency: intermittent Improves with: none Worsens with: none Associated Symptoms: denies other symptoms - Related Data Home Medications Medication Instructions Recorded Confirmed Last Taken Albuterol Sulfate [Ventolin HFA] 2 puff IH Q4H PRN 04/23/18 04/23/18 Unknown Aspirin [Aspirin EC] 81 mg PO DAILY 04/23/18 04/23/18 Unknown Furosemide [Lasix TAB] 40 mg PO QDAY 04/23/18 04/23/18 Unknown Potassium Chloride 10 meq PO DAILY 04/23/18 04/23/18 Unknown Previous Rx's Medication Instructions Recorded Last Taken Type Atenolol [Tenormin] 50 mg PO DAILY #30 tablet 04/28/18 Unknown Rx AtorvaSTATin [Lipitor] 80 mg PO QHS tablet 04/28/18 Unknown Rx Atorvastatin Calcium 80 mg PO DAILY #30 tablet 04/28/18 Unknown Rx Duloxetine HCl [Cymbalta] 60 mg PO DAILY #30 capsule. 04/28/18 Unknown Rx Gabapentin [Neurontin] 600 mg PO BID #60 capsule 04/28/18 Unknown Rx Gabapentin [Neurontin] 600 mg PO BID #60 tablet 04/28/18 Unknown Rx HYDROcodone/APAP 5-325 [[place] 1 each PO Q6H PRN #15 tablet 04/28/18 Unknown Rx 5-325 mg TAB] Lispro Insulin [Humalog] 0 unit SUB-Q Q6HR units 04/28/18 Unknown Rx Losartan [Cozaar] 25 mg PO QDAY #30 tablet 04/28/18 Unknown Rx Metformin HCl [Glucophage] 1,000 mg PO BID #60 tablet 04/28/18 Unknown Rx Omeprazole 40 mg PO DAILY #30 capsule. 04/28/18 Unknown Rx amLODIPine [Norvasc] 5 mg PO DAILY #30 tablet 04/28/18 Unknown Rx metFORMIN [Glucophage] 1,000 mg PO BIDDIAB tablet 04/28/18 Unknown Rx Allergies Allergy/AdvReac Type Severity Reaction Status Date / Time acetaminophen [From Tylenol] Allergy CAUSES Verified 06/23/15 10:22 ISSUE WITH LIVER Antihistamines - Alkylamine Allergy Shortness Verified 06/23/15 10:22 of Breath codeine Allergy Headache Verified 06/23/15 10:22 Penicillins Allergy Angioedema Verified 06/23/15 10:22 Sulfa (Sulfonamide Allergy Rash Verified 06/23/15 10:22 Antibiotics) ANTIBIOTICS Allergy Severe EXTREME Uncoded 06/23/15 09:34 STOMACH PAIN ED Review of Systems ROS: Stated complaint: ARMS/LEGS NUMB Other details as noted in HPI Comment: All other systems reviewed and negative Constitutional: denies: fever, malaise Respiratory: denies: cough Cardiovascular: denies: chest pain ED Past Medical Hx - Past Medical History Previous Medical History?: Yes Hx Congestive Heart Failure: Yes Hx Diabetes: Yes Hx GERD: Yes Hx COPD: Yes - Surgical History Past Surgical History?: Yes Hx Open Heart Surgery: Yes (2014) Additional Surgical History: Neck surgery, back surgery - Social History Smoking Status: Never Smoker - Medications Home Medications: Home Medications Medication Instructions Recorded Confirmed Last Taken Type Albuterol Sulfate [Ventolin HFA] 2 puff IH Q4H PRN 04/23/18 04/23/18 Unknown History Aspirin [Aspirin EC] 81 mg PO DAILY 04/23/18 04/23/18 Unknown History Furosemide [Lasix TAB] 40 mg PO QDAY 04/23/18 04/23/18 Unknown History Potassium Chloride 10 meq PO DAILY 04/23/18 04/23/18 Unknown History Atenolol [Tenormin] 50 mg PO DAILY #30 tablet 04/28/18 Unknown Rx AtorvaSTATin [Lipitor] 80 mg PO QHS tablet 04/28/18 Unknown Rx Atorvastatin Calcium 80 mg PO DAILY #30 tablet 04/28/18 Unknown Rx Duloxetine HCl [Cymbalta] 60 mg PO DAILY #30 capsule. 04/28/18 Unknown Rx Gabapentin [Neurontin] 600 mg PO BID #60 capsule 04/28/18 Unknown Rx Gabapentin [Neurontin] 600 mg PO BID #60 tablet 04/28/18 Unknown Rx HYDROcodone/APAP 5-325 [[place] 1 each PO Q6H PRN #15 tablet 04/28/18 Unknown Rx 5-325 mg TAB] Lispro Insulin [Humalog] 0 unit SUB-Q Q6HR units 04/28/18 Unknown Rx Losartan [Cozaar] 25 mg PO QDAY #30 tablet 04/28/18 Unknown Rx Metformin HCl [Glucophage] 1,000 mg PO BID #60 tablet 04/28/18 Unknown Rx Omeprazole 40 mg PO DAILY #30 capsule. 04/28/18 Unknown Rx amLODIPine [Norvasc] 5 mg PO DAILY #30 tablet 04/28/18 Unknown Rx metFORMIN [Glucophage] 1,000 mg PO BIDDIAB tablet 04/28/18 Unknown Rx ED Physical Exam - General General appearance: alert, in no apparent distress - Head Head exam: Present: atraumatic, normocephalic - Eye Eye exam: Present: normal appearance - ENT ENT exam: Present: mucous membranes moist - Neck Neck exam: Present: normal inspection, full ROM - Respiratory Respiratory exam: Present: normal lung sounds bilaterally. Absent: respiratory distress, wheezes, rales, rhonchi - Cardiovascular Cardiovascular Exam: Present: regular rate, normal rhythm, normal heart sounds. Absent: systolic murmur, diastolic murmur, rubs, gallop - GI/Abdominal GI/Abdominal exam: Present: soft, normal bowel sounds. Absent: distended, tenderness, guarding, rebound - Extremities Exam Extremities exam: Present: normal inspection - Back Exam Back exam: Present: normal inspection - Neurological Exam Neurological exam: Present: alert, oriented X3, CN II-XII intact, normal gait, motor sensory deficit - Psychiatric Psychiatric exam: Present: normal affect, normal mood - Skin Skin exam: Present: warm, dry, intact, normal color. Absent: rash ED Course Vital Signs 05/06/18 11:48 Temperature 97.8 F Pulse Rate 73 Respiratory 11 L Rate Blood Pressure 135/53 Blood Pressure 135/73 [Left] O2 Sat by Pulse 100 Oximetry - Reevaluation(s) Reevaluation #1: 05/06/18 12:54 I and nurse observe Mrs. Chavis holding phone with affected left upper arm. She even prefers to use left arm when changing position in bed. ED Medical Decision Making - Lab Data Result diagrams: 05/06/18 11:47 05/06/18 11:47 - Medical Decision Making Mrs. Chavis is a 68-year-old female who is status post recent repair of femoral neck fracture. Unfortunately, she is alone without any social support. No in dication of TIA or CVA on today's presentation. She has intact strength in all extremities. However, at times, she is hesitant to use her left arm although she uses it with ease spontaneously. I will consult case management in order to assist with either placement in skilled facility or home rehabilitation. According to my evaluation today, this patient does not currently have have an acute medical condition which needs further treatment or evaluation. I reviewed basic labs obtained. elevated WBC, anemia, hypochloremia unchanged from previous labs. I spoke with our case management information systems director Paulette. She informed me that Mrs. chavis has been in close communication with case management department. Our staff has been in contact with outside [facility] agency workers. I did review the notes in electronic medical record. As recently as today, case management service documented that Mrs. chavis has discontinued home health visits because "I have business take care of." According to previous documentation, Mrs. Chavsi has no living relatives. However she does have a next of kin who is a stepdaughter. Our case management worker spoke with Mrs. chavis here in the ED. She was offered acute rehabilitation placement. Mrs. chavis declined at that time. She declines today. She is stable for discharge. She is ambulatory. Critical care attestation.: If time is entered above; I have spent that time in minutes in the direct care of this critically ill patient, excluding procedure time. ED Disposition Clinical Impression: History of tremor, Recent major surgery Disposition: DC-01 TO HOME OR SELFCARE Is pt being admited?: No Does the pt Need Aspirin: No Condition: Stable
[2018-05-06 12:16] LABS: Basophils # (Auto) 0.1 K/mm3 (0.0-0.1); Basophils % (Auto) 0.7 % (0.0-1.8); Eosinophils # (Auto) 0.1 K/mm3 (0.0-0.4); Eosinophils % (Auto) 0.9 % (0.0-4.3); Hematocrit 28.1 % (30.3-42.9); Lymphocytes # (Auto) 1.2 K/mm3 (1.2-5.4); Lymphocytes % (Auto) 8.8 % (13.4-35.0); Mean Corpuscular HGB Conc 32 % (30-34); Mean Corpuscular Volume 94 fl (79-97); Monocytes # (Auto) 0.5 K/mm3 (0.0-0.8); Monocytes % (Auto) 3.4 % (0.0-7.3); Platelet Count 598 K/mm3 (140-440); Red Blood Count 3.01 M/mm3 (3.65-5.03); Red Cell Distribution Width 15.2 % (13.2-15.2)
[2018-05-06 12:20] LABS: BUN/Creatinine Ratio 34; Blood Urea Nitrogen 17 mg/dL (7-17); Calcium 8.4 mg/dL (8.4-10.2); Hemolysis Index 2
[2018-05-06 13:39] VITALS: BP 133/41
== END 2018-05-06 14:22 | disposition home or self-care (01) ==
LOC: ED 11:25
DX: M96.89 Other intraoperative and postprocedural complications and disorders of the musculoskeletal system (principal); I50.9 Heart failure, unspecified; E11.9 Type 2 diabetes mellitus without complications; K21.9 Gastro-esophageal reflux disease without esophagitis; J44.9 Chronic obstructive pulmonary disease, unspecified; Z88.0 Allergy status to penicillin; Z88.1 Allergy status to other antibiotic agents; Z88.6 Allergy status to analgesic agent; Z88.8 Allergy status to other drugs, medicaments and biological substances
CPT/HCPCS: 36415; 80048; 85025

== ENCOUNTER 2018-05-17 17:48 | Emergency (ER) | payer MEDICARE ==
[2018-05-17] MEDS ORDERED: ZOFRAN IV ONE (18:10)
[2018-05-17] MEDS ORDERED: SUBLIMAZE IV ONE (18:10)
--- NOTE | 2018-05-17 18:16 | Emergency Department Report ---
HPI - General Chief Complaint: Urogenital-Female Time Seen by Provider: 05/17/18 18:03 - HPI HPI: Room 4 The patient 68-year-old female presenting with chief complaint urinary retention. The patient states she has been unable to urinate for the past 3 d ays. Patient states she's never had this problem before. Patient admits to nausea and vomiting occasionally. Patient denies any preceding dysuria or hematuria. Patient denies history of fever. Patient also complains of constipation for one week. Patient complains of suprapubic pressure and gives it a score of 7/10 Location: [See above] Duration: [See above] Quality: Pressure Severity: 7/10 Modifying factors: [see above] Context: [see above] Mode of transportation: [not driving] ED Past Medical Hx - Past Medical History Hx Hypertension: Yes Hx Congestive Heart Failure: Yes Hx Diabetes: Yes Hx GERD: Yes Hx COPD: Yes - Surgical History Past Surgical History?: Yes Hx Open Heart Surgery: Yes (2014) Additional Surgical History: Neck surgery, back surgery - Family History Family history: no significant - Social History Smoking Status: Current Every Day Smoker (1/7 per day) Substance Use Type: None - Medications Home Medications: Home Medications Medication Instructions Recorded Confirmed Last Taken Type Albuterol Sulfate [Ventolin HFA] 2 puff IH Q4H PRN 04/23/18 04/23/18 Unknown History Aspirin [Aspirin EC] 81 mg PO DAILY 04/23/18 04/23/18 Unknown History Furosemide [Lasix TAB] 40 mg PO QDAY 04/23/18 04/23/18 Unknown History Potassium Chloride 10 meq PO DAILY 04/23/18 04/23/18 Unknown History Atenolol [Tenormin] 50 mg PO DAILY #30 tablet 04/28/18 Unknown Rx AtorvaSTATin [Lipitor] 80 mg PO QHS tablet 04/28/18 Unknown Rx Atorvastatin Calcium 80 mg PO DAILY #30 tablet 04/28/18 Unknown Rx Duloxetine HCl [Cymbalta] 60 mg PO DAILY #30 capsule. 04/28/18 Unknown Rx Gabapentin [Neurontin] 600 mg PO BID #60 capsule 04/28/18 Unknown Rx Gabapentin [Neurontin] 600 mg PO BID #60 tablet 04/28/18 Unknown Rx HYDROcodone/APAP 5-325 [[place] 1 each PO Q6H PRN #15 tablet 04/28/18 Unknown Rx 5-325 mg TAB] Lispro Insulin [Humalog] 0 unit SUB-Q Q6HR units 04/28/18 Unknown Rx Losartan [Cozaar] 25 mg PO QDAY #30 tablet 04/28/18 Unknown Rx Metformin HCl [Glucophage] 1,000 mg PO BID #60 tablet 04/28/18 Unknown Rx Omeprazole 40 mg PO DAILY #30 capsule. 04/28/18 Unknown Rx amLODIPine [Norvasc] 5 mg PO DAILY #30 tablet 04/28/18 Unknown Rx metFORMIN [Glucophage] 1,000 mg PO BIDDIAB tablet 04/28/18 Unknown Rx oxyCODONE [Roxicodone] 5 mg PO Q6HR PRN #15 tablet 05/20/18 Unknown Rx ED Review of Systems ROS: Stated complaint: UNABLE TO URINE Other details as noted in HPI Constitutional: denies: fever Eyes: denies: eye pain ENT: denies: throat pain Respiratory: no symptoms reported Cardiovascular: denies: chest pain Endocrine: no symptoms reported Gastrointestinal: abdominal pain, nausea, vomiting, constipation Genitourinary: other (inability to urinate). denies: dysuria, hematuria Musculoskeletal: denies: back pain Neurological: denies: headache Physical Exam - Physical Exam Vital Signs: Vital Signs 05/17/18 17:57 Temperature 97.6 F Pulse Rate 76 Respiratory 18 Rate Blood Pressure 136/49 O2 Sat by Pulse 96 Oximetry Physical Exam: GENERAL: The patient is well-developed well-nourished female lying on stretcher not appearing to be in acute distress. [] HEENT: Normocephalic. Atraumatic. Extraocular motions are intact. Patient has moist mucous membranes. NECK: Supple. Trachea midline CHEST/LUNGS: Clear to auscultation. There is no respiratory distress noted. HEART/CARDIOVASCULAR: Regular. There is no tachycardia. There is no gallop rub or murmur. ABDOMEN: Abdomen is soft, with discomfort to palpation and fullness in the suprapubic region. Patient has normal bowel sounds. There is no abdominal distention. SKIN: There is no rash. There is no edema. There is no diaphoresis. NEURO: The patient is awake, alert, and oriented. The patient is cooperative. The patient has normal speech MUSCULOSKELETAL:There is no evidence of acute injury. ED Course Vital Signs 05/17/18 17:57 Temperature 97.6 F Pulse Rate 76 Respiratory 18 Rate Blood Pressure 136/49 O2 Sat by Pulse 96 Oximetry ED Medical Decision Making - Lab Data Result diagrams: 05/17/18 18:11 05/17/18 18:11 - Radiology Data Radiology results: report reviewed (CT abdomen and pelvis), image reviewed (CT abdomen and pelvis) [facility] [address] [place] [address] Cat Scan Report Signed Patient: ANTONIO CHASE MR#: [id number] [birth year] : 1950 Acct:[id number] Age/Sex: 68 / F ADM Date: 05/17/18 Loc: ED Attending Dr: Ordering Physician: JOSE L GUZMAN MD Date of Service: 05/17/18 Procedure(s): CT abdomen pelvis wo con Accession Number(s): [id number] cc: JOSE L GUZMAN MD PROCEDURE: CT ABDOMEN PELVIS WO CON TECHNIQUE: Computerized axial tomography of the abdomen and pelvis was performed without intravenous contrast. This study is performed without intravascular contrast material and its sensitivity for abdominal and pelvic pathology, including neoplasms, inflammation, abscess, free fluid, thrombosis, arterial dissection and infarction, is reduced compared with a contrast enhanced study. CT DOSE LENGTH PRODUCT: mGycm HISTORY: urinary retention, constipation COMPARISONS: None . FINDINGS: Visualized lower thorax: No significant abnormality. Liver: Normal size and attenuation. Spleen: Normal size and attenuation. Gallbladder and biliary system: Normal. Pancreas: Normal. Adrenals: Normal. Kidneys: There is a 3 mm nonobstructing stone in the midpole the left kidney. There are no ureteral stones. There is no hydronephrosis.. GI tract: There is fecal impaction. There is no bowel obstruction, colitis or enteritis. Appendix is normal. . Lymph nodes and mesentery: Normal. Vasculature: There is calcified plaque in the abdominal aorta. There is no aneurysm.. B ladder: There is a Sanchez catheter in the urinary bladder.. Reproductive organs: Uterus is atrophic.. Peritoneum: There is no ascites or free air, abscess or adenopathy.. Musculoskeletal structures: No significant abnormality. IMPRESSION: There is a 3 mm nonobstructing stone in the midpole the left kidney. There are no ureteral stones. There is no hydronephrosis.. There is fecal impaction. There is no bowel obstruction, colitis or enteritis. Appendix is normal. . There is a Sanchez catheter in the urinary bladder.. There is no ascites or free air, abscess or adenopathy.. . This document is electronically signed by Jamaal Farooq MD., May 17 2018 09:14:42 PM ET Transcribed By: CO Dictated By: JAMAAL FAROOQ MD Electronically Authenticated By: JAMAAL FAROOQ MD Signed Date/Time: 05/17/182116 DD/ 58 TD/TT: 05/17/182005 - Differential Diagnosis urinary retention, constipation, UTI, neurogenic bladder Critical care attestation.: If time is entered above; I have spent that time in minutes in the direct care of this critically ill patient, excluding procedure time. ED Disposition Clinical Impression: Urinary retention, Acute abdominal pain Disposition: -01 TO HOME OR SELFCARE Is pt being admited?: No Does the pt Need Aspirin: No Condition: Stable Instructions: Sanchez Catheter Placement and Care (ED), Acute Urinary Retention in Women (ED), Urinary Leg Bag (GEN) Additional Instructions: Return to the emergency department immediately should you develop worsening symptoms, fever, inability to tolerate food or liquid or any other concerns. Referrals[facility] [Primary Care Provider] - 3-5 Days ELISE OJEDA MD [Staff Physician] - [facility] (Dr Ojeda is a urologist. Please follow up with him for further evaluation of your urinary retention)
[2018-05-17 18:38] LABS: Basophils # (Auto) 0.1 K/mm3 (0.0-0.1); Basophils % (Auto) 0.8 % (0.0-1.8); Eosinophils # (Auto) 0.1 K/mm3 (0.0-0.4); Eosinophils % (Auto) 0.9 % (0.0-4.3); Hematocrit 30.3 % (30.3-42.9); Hemoglobin 9.8 gm/dl (10.1-14.3); Lymphocytes # (Auto) 1.1 K/mm3 (1.2-5.4); Lymphocytes % (Auto) 10.9 % (13.4-35.0); Mean Corpuscular HGB Conc 32 % (30-34); Mean Corpuscular Volume 87 fl (79-97); Monocytes # (Auto) 0.5 K/mm3 (0.0-0.8); Monocytes % (Auto) 5.4 % (0.0-7.3); Platelet Count 431 K/mm3 (140-440); Red Cell Distribution Width 18.2 % (13.2-15.2)
[2018-05-17 18:40] LABS: BUN/Creatinine Ratio 25; Blood Urea Nitrogen 15 mg/dL (7-17); Calcium 9.1 mg/dL (8.4-10.2); Hemolysis Index 13
[2018-05-17 19:04] LABS: Bilirubin,Urine NEG (Negative); Blood,Urine NEG (Negative); Color,Urine Yellow (Yellow); Protein,Urine <15 mg/dL mg/dL (Negative); Urobilinogen,Urine < 2.0 mg/dL (<2.0); WBC,Urine < 1.0 /HPF (0.0-6.0)
--- NOTE | 2018-05-17 21:17 | Cat Scan Report ---
PROCEDURE: CT ABDOMEN PELVIS WO CON TECHNIQUE: Computerized axial tomography of the abdomen and pelvis was performed without intravenous contrast. This study is performed without intravascular contrast material and its sensitivity for ab dominal and pelvic pathology, including neoplasms, inflammation, abscess, free fluid, thrombosis, art erial dissection and infarction, is reduced compared with a contrast enhanced study. CT DOSE LENGTH PRODUCT: mGycm HISTORY: urinary retention, constipation COMPARISONS: None . FINDINGS: Visualized lower thorax: No significant abnormality. Liver: Normal size and attenuation. Spleen: Normal size and attenuation. Gallbladder and biliary system: Normal. Pancreas: Normal. Adrenals: Normal. Kidneys: There is a 3 mm nonobstructing stone in the midpole the left kidney. There are no ureteral s tones. There is no hydronephrosis.. GI tract: There is fecal impaction. There is no bowel obstruction, colitis or enteritis. Appendix is normal. . Lymph nodes and mesentery: Normal. Vasculature: There is calcified plaque in the abdominal aorta. There is no aneurysm.. Bladder: There is a Sanchez catheter in the urinary bladder.. Reproductive organs: Uterus is atrophic.. Peritoneum: There is no ascites or free air, abscess or adenopathy.. Musculoskeletal structures: No significant abnormality. IMPRESSION: There is a 3 mm nonobstructing stone in the midpole the left kidney. There are no ureteral stones. Th ere is no hydronephrosis.. There is fecal impaction. There is no bowel obstruction, colitis or enteritis. Appendix is normal. . There is a Sanchez catheter in the urinary bladder.. There is no ascites or free air, abscess or adenopathy.. . This document is electronically signed by Jamaal Joiner MD., May 17 2018 09:14:42 PM ET
[2018-05-17 22:01] VITALS: BP 129/65
[2018-05-17] MEDS ORDERED: FLEXERIL PO ONE (22:07)
[2018-05-17] MEDS ORDERED: XYLOCAINE TOPICAL 2% 5ML TP ONE (23:00)
[2018-05-17] MEDS ORDERED: XYLOCAINE TOPICAL 2% 5ML ONE (23:05)
[2018-05-17] MEDS: XYLOCAINE 2% UROJET UR ONE ×2 (23:10→23:35)
== END 2018-05-18 01:08 | disposition home or self-care (01) ==
LOC: ED 17:48
DX: R33.9 Retention of urine, unspecified (principal); R10.9 Unspecified abdominal pain; I11.0 Hypertensive heart disease with heart failure; I50.9 Heart failure, unspecified; E11.9 Type 2 diabetes mellitus without complications; K21.9 Gastro-esophageal reflux disease without esophagitis; J44.9 Chronic obstructive pulmonary disease, unspecified; F17.210 Nicotine dependence, cigarettes, uncomplicated; Z79.82 Long term (current) use of aspirin; Z88.6 Allergy status to analgesic agent; Z88.8 Allergy status to other drugs, medicaments and biological substances
CPT/HCPCS: 36415; 51702; 74176; 80048; 81001; 85025; 96374; 96375; 99285; J2405; J3010

== ENCOUNTER 2018-05-20 16:04 | Emergency (ER) | payer MEDICARE ==
[2018-05-20] MEDS ORDERED: NACL 0.9% 1000 ML 1,000 ML IV ONE (16:39)
[2018-05-20] MEDS ORDERED: SUBLIMAZE IV ONE (16:39)
--- NOTE | 2018-05-20 16:41 | Emergency Department Report ---
ED General Adult HPI - General Chief complaint: Fall Stated complaint: GROUND LEVEL FALL/RIB PAIN Time Seen by Provider: 05/20/18 16:30 Source: patient, EMS (ems notes not available at time of chart dictation), RN notes reviewed, old records reviewed Mode of arrival: Stretcher Limitations: Physical Limitation - History of Present Illness Initial comments: This is a 68-year-old female. The patient has a history of chronic pain and arthritis. Patient had a left hip replacement last month. Physical therapy recommended acute rehabilitation which the patient refused. Patient went home with plan for home physical therapy. Apparently, as per the patient, home physical therapy has not been initiated. Patient reports that she has called multiple people, and "everyone is promising me everything" but has not had home physical therapy thus far. She reports that she has a wheelchair at home, and a walker at home. The patient reports that she was at her outpatient physician's office today, for follow-up for urinary retention, when she had a mechanical fall and landed on her left chest and anterior abdominal region. Prior to the fall, the patient was not having any new or different symptoms. After the fall, she has epigastric pain, left leg pain, and left rib pain. Her pain is sharp, increases with palpation, decreases with rest, it does not radiate anywhere. She denies extremity weakness, numbness, fecal incontinence, fecal retention, headache or neck pain. -: Sudden Location: chest, abdomen Quality: aching Consistency: intermittent Improves with: medication, rest Worsens with: movement - Related Data Home Medications Medication Instructions Recorded Confirmed Last Taken Albuterol Sulfate [Ventolin HFA] 2 puff IH Q4H PRN 04/23/18 04/23/18 Unknown Aspirin [Aspirin EC] 81 mg PO DAILY 04/23/18 04/23/18 Unknown Furosemide [Lasix TAB] 40 mg PO QDAY 04/23/18 04/23/18 Unknown Potassium Chloride 10 meq PO DAILY 04/23/18 04/23/18 Unknown Previous Rx's Medication Instructions Recorded Last Taken Type Atenolol [Tenormin] 50 mg PO DAILY #30 tablet 04/28/18 Unknown Rx AtorvaSTATin [Lipitor] 80 mg PO QHS tablet 04/28/18 Unknown Rx Atorvastatin Calcium 80 mg PO DAILY #30 tablet 04/28/18 Unknown Rx Duloxetine HCl [Cymbalta] 60 mg PO DAILY #30 capsule. 04/28/18 Unknown Rx Gabapentin [Neurontin] 600 mg PO BID #60 capsule 04/28/18 Unknown Rx Gabapentin [Neurontin] 600 mg PO BID #60 tablet 04/28/18 Unknown Rx HYDROcodone/APAP 5-325 [[place] 1 each PO Q6H PRN #15 tablet 04/28/18 Unknown Rx 5-325 mg TAB] Lispro Insulin [Humalog] 0 unit SUB-Q Q6HR units 04/28/18 Unknown Rx Losartan [Cozaar] 25 mg PO QDAY #30 tablet 04/28/18 Unknown Rx Metformin HCl [Glucophage] 1,000 mg PO BID #60 tablet 04/28/18 Unknown Rx Omeprazole 40 mg PO DAILY #30 capsule. 04/28/18 Unknown Rx amLODIPine [Norvasc] 5 mg PO DAILY #30 tablet 04/28/18 Unknown Rx metFORMIN [Glucophage] 1,000 mg PO BIDDIAB tablet 04/28/18 Unknown Rx oxyCODONE [Roxicodone] 5 mg PO Q6HR PRN #15 tablet 05/20/18 Unknown Rx Allergies Allergy/AdvReac Type Severity Reaction Status Date / Time acetaminophen [From Tylenol] Allergy CAUSES Verified 06/23/15 10:22 ISSUE WITH LIVER Antihistamines - Alkylamine Allergy Shortness Verified 06/23/15 10:22 of Breath codeine Allergy Headache Verified 06/23/15 10:22 Penicillins Allergy Angioedema Verified 06/23/15 10:22 Sulfa (Sulfonamide Allergy Rash Verified 06/23/15 10:22 Antibiotics) ANTIBIOTICS Allergy Severe EXTREME Uncoded 06/23/15 09:34 STOMACH PAIN ED Review of Systems ROS: Stated complaint: GROUND LEVEL FALL/RIB PAIN Other details as noted in HPI Constitutional: malaise Eyes: denies: vision change ENT: denies: epistaxis Respiratory: denies: cough Cardiovascular: other (left-sided thoracic wall pain) Gastrointestinal: abdominal pain Musculoskeletal: back pain, arthralgia, myalgia Skin: denies: lesions Neurological: denies: numbness, paresthesias Psychiatric: anxiety ED Past Medical Hx - Past Medical History Hx Hypertension: Yes Hx Congestive Heart Failure: Yes Hx Diabetes: Yes Hx GERD: Yes Hx COPD: Yes - Surgical History Hx Open Heart Surgery: Yes (2014) Additional Surgical History: Neck surgery, back surgery - Social History Smoking Status: Current Every Day Smoker (1/7 per day) Substance Use Type: None - Medications Home Medications: Home Medications Medication Instructions Recorded Confirmed Last Taken Type Albuterol Sulfate [Ventolin HFA] 2 puff IH Q4H PRN 04/23/18 04/23/18 Unknown History Aspirin [Aspirin EC] 81 mg PO DAILY 04/23/18 04/23/18 Unknown History Furosemide [Lasix TAB] 40 mg PO QDAY 04/23/18 04/23/18 Unknown History Potassium Chloride 10 meq PO DAILY 04/23/18 04/23/18 Unknown History Atenolol [Tenormin] 50 mg PO DAILY #30 tablet 04/28/18 Unknown Rx AtorvaSTATin [Lipitor] 80 mg PO QHS tablet 04/28/18 Unknown Rx Atorvastatin Calcium 80 mg PO DAILY #30 tablet 04/28/18 Unknown Rx Duloxetine HCl [Cymbalta] 60 mg PO DAILY #30 capsule. 04/28/18 Unknown Rx Gabapentin [Neurontin] 600 mg PO BID #60 capsule 04/28/18 Unknown Rx Gabapentin [Neurontin] 600 mg PO BID #60 tablet 04/28/18 Unknown Rx HYDROcodone/APAP 5-325 [[place] 1 each PO Q6H PRN #15 tablet 04/28/18 Unknown Rx 5-325 mg TAB] Lispro Insulin [Humalog] 0 unit SUB-Q Q6HR units 04/28/18 Unknown Rx Losartan [Cozaar] 25 mg PO QDAY #30 tablet 04/28/18 Unknown Rx Metformin HCl [Glucophage] 1,000 mg PO BID #60 tablet 04/28/18 Unknown Rx Omeprazole 40 mg PO DAILY #30 capsule. 04/28/18 Unknown Rx amLODIPine [Norvasc] 5 mg PO DAILY #30 tablet 04/28/18 Unknown Rx metFORMIN [Glucophage] 1,000 mg PO BIDDIAB tablet 04/28/18 Unknown Rx oxyCODONE [Roxicodone] 5 mg PO Q6HR PRN #15 tablet 05/20/18 Unknown Rx ED Physical Exam - General Limitations: No Limitations General appearance: alert, anxious - Head Head exam: Present: atraumatic, normocephalic - Eye Eye exam: Present: normal appearance, EOMI. Absent: nystagmus - ENT ENT exam: Present: normal exam, normal orophraynx, mucous membranes moist, normal external ear exam - Neck Neck exam: Present: normal inspection, full ROM. Absent: tenderness, meningismus - Respiratory Respiratory exam: Present: normal lung sounds bilaterally, chest wall tenderness. Absent: respiratory distress - Cardiovascular Cardiovascular Exam: Present: normal rhythm, tachycardia, normal heart sounds. Absent: systolic murmur, diastolic murmur, rubs, gallop - GI/Abdominal GI/Abdominal exam: Present: soft, tenderness, normal bowel sounds, diminished bowel sounds, other (there is epigastric tenderness. There is no rebound, guarding or peritoneal signs). Absent: distended, guarding, rebound, rigid, pulsatile mass - Extremities Exam Extremities exam: Present: normal inspection, full ROM, other (2+ pulses noted in the bilateral upper, lower extremities. Compartments soft. No long bony tenderness. The pelvis is stable.). Absent: pedal edema, joint swelling - Back Exam Back exam: Present: normal inspection, full ROM. Absent: tenderness, CVA tenderness (R), paraspinal tenderness, vertebral tenderness - Neurological Exam Neurological exam: Present: alert, oriented X3, other (Extraocular movements intact. Tongue midline. No facial droop. Facial sensation intact to light touch in the V1, V2, V3 distribution bilaterally. 5 and 5 strength in 4 extremi ties.. Sensation is intact to light touch in 4 extremities.). Absent: motor sensory deficit - Psychiatric Psychiatric exam: Present: anxious - Skin Skin exam: Present: warm, dry, intact, normal color. Absent: rash ED Course Vital Signs 05/20/18 05/20/18 05/20/18 16:38 16:54 17:10 Temperature 98.0 F 98.0 F Pulse Rate 113 H 103 H Respiratory 16 16 16 Rate Blood Pressure 120/78 [Left] O2 Sat by Pulse 100 100 Oximetry 05/20/18 05/20/18 05/20/18 17:20 17:24 17:50 Temperature 98.0 F Pulse Rate 113 H Respiratory 14 14 14 Rate Blood Pressure 186/75 [Left] O2 Sat by Pulse 98 98 Oximetry 05/20/18 05/20/18 05/20/18 19:37 21:32 21:35 Temperature 98.4 F 98.6 F 97.6 F Pulse Rate 111 H 113 H 110 H Respiratory 18 18 18 Rate Blood Pressure 162/53 158/56 156/60 [Left] O2 Sat by Pulse Oximetry - Reevaluation(s) Reevaluation #1: 05/20/18 18:19 Differential diagnosis, including not limited to: Debility, fracture, dislocation, intrathoracic injury, intra-abdominal injury Assessment and plan: 68-year-old female status post reported mechanical fall, moving 4 extremities, no weakness, no numbness, with epigastric pain, epigastric tenderness, left-sided thoracic pain. We will obtain CT scan of the chest, abdomen, pelvis to exclude traumatic injury. Clinically doubt traumatic injury at this time. Screening laboratory studies reviewed and are appreciated. X-ray of the pelvis is negative for acute disease. Case management consult has been requested, and they may follow-up the patient at home, or further evaluation for her home physical therapy and PT Reevaluation #2: 05/20/18 19:16 Patient sleeping comfortably, and appears to be in no acute distress. Elevated blood pressure reviewed and appreciated. Please reference the [employer] clinical policy on hypertension which is not acutely asymptomatic or decompensated. The patient can follow up with her outpatient primary care doctor for this elevated blood pressure. Reevaluation #3: 05/20/18 20:08 CT scan of the chest is negative for traumatic disease. There is no pulmonary embolus identified. CT scan of the abdomen and pelvis demonstrates nonspecific T11 abnormality, and diffuse arterial atherosclerotic disease. Occlusive disease causing high-grade stenosis at the origin of the celiac axis is noted, which is patent distally. There also appears to be occlusion of this appear mesenteric artery. Normal enhancement of the right renal artery is noted, however there is heavily diseased origin of the left renal artery. Patient also found to have heavy atherosclerotic disease of the common iliac arteries bilaterally. There is also noted to be mild hyperemia of the small bowel mucosa, and or rectal colonic wall hyperemia. Patient was noted to be constipated on the CT scan 3 days ago. In addition, left-sided greater trochanteric bursitis is suggested. The patient does not have significant redness, pus, streaking or significant tenderness over this site. Her abdominal tenderness is primarily in the epigastric region, but it does not appear to be out of proportion to examination. I suspect these diffuse arterial findings are likely incidental, the patient is most likely collateralized. I do not suspect acute ischemic gut. Reevaluation #4: 05/20/18 20:19 CT scan findings, arterial findings, and intestinal findings are discussed with the vascular surgeon transition assistant, Dr. [place] We both agree that given the history and physical, these are most likely incidental findings, and the patient most likely is chronically collateralized. The vascular surgeon is not recommend antiplatelet therapy at this time, nor did she recommend admission or anticoagulation. I agree with him. He indicates the patient can follow-up for these incidental findings as an outpatient. Belly soft on repeat exam, sleeping comfortably. 05/20/18 20:19 - EJ/Peripheral Line Arm R Time Out Performed: Yes Indications: multiple IV sites needed Skin Cleansed in Sterile Fashion: Yes Size: 20 Dressing Placed: Tegaderm Patient Tolerated Procedure: well ED Medical Decision Making - Lab Data Result diagrams: 05/20/18 16:47 05/20/18 16:47 Vital Signs 05/20/18 05/20/18 05/20/18 16:38 16:54 17:10 Temperature 98.0 F 98.0 F Pulse Rate 113 H 103 H Respiratory 16 16 16 Rate Blood Pressure 120/78 [Left] O2 Sat by Pulse 100 100 Oximetry 05/20/18 05/20/18 05/20/18 17:20 17:24 17:50 Temperature 98.0 F Pulse Rate 113 H Respiratory 14 14 14 Rate Blood Pressure 186/75 [Left] O2 Sat by Pulse 98 98 Oximetry Lab Results 05/20/18 05/20/18 Range/Units 16:47 16:47 WBC 12.7 H (4.5-11.0) K/mm3 RBC 3.64 L (3.65-5.03) M/mm3 Hgb 9.8 L (10.1-14.3) gm/dl Hct 31.6 (30.3-42.9) % MCV 87 (79-97) fl MCH 27 L (28-32) pg MCHC 31 (30-34) % RDW 18.7 H (13.2-15.2) % Plt Count 372 (140-440) K/mm3 Sodium 133 L (137-145) mmol/L Potassium 4.7 (3.6-5.0) mmol/L Chloride 90.4 L (98-107) mmol/L Carbon Dioxide 24 (22-30) mmol/L Anion Gap 23 mmol/L BUN 19 H (7-17) mg/dL Creatinine 0.8 (0.7-1.2) mg/dL Estimated GFR > 60 ml/min BUN/Creatinine Ratio 24 % Glucose 198 H (65-100) mg/dL Calcium 9.2 (8.4-10.2) mg/dL Magnesium 2.20 (1.7-2.3) mg/dL Total Bilirubin 0.30 (0.1-1.2) mg/dL AST 18 (5-40) units/L ALT 15 (7-56) units/L Alkaline Phosphatase 153 H (35-129) units/L Total Creatine Kinase 153 H (30-135) units/L Total Protein 6.7 (6.3-8.2) g/dL Albumin 3.8 L (3.9-5) g/dL Albumin/Globulin Ratio 1.3 % Lipase 24 (13-60) units/L - Radiology Data Radiology results: pending, image reviewed interpreted by me: X-ray of the pelvis is negative for acute disease, left-sided hip prosthesis is noted. Critical care attestation.: If time is entered above; I have spent that time in minutes in the direct care of this critically ill patient, excluding procedure time. ED Disposition Clinical Impression: Fall, Rib pain on left side Disposition: DC-01 TO HOME OR SELFCARE Is pt being admited?: No Does the pt Need Aspirin: No Condition: Good Additional Instructions: Do not take metformin for the next 48 hours. Rest, avoid heavy lifting, and avoid strenuous physical activity. Follow-up with her orthopedic surgeon within the next 5-7 days. Take the pain medication as needed/directed. A case management consult has been requested, and a case management team, social services coordinator should contact the patient within the next 24 hours to discuss and arrange outpatient physical therapy. CT scan of the chest, abdomen, pelvis was obtained today, and demonstrated numerous incidental findings which should be followed up. CT scan suggested inflammation/irritation of the left trochanteric bursa, which is a natural cushion in the patient's body, and this should be followed up by the patient's primary care doctor or orthopedic surgeon within the next 5-[address] scan of the back suggested compression fracture of the thoracic spine. The patient should follow-up with the primary care doctor or orthopedic surgeon for this within the next 5-[address] scan of the abdomen and pelvis suggested partial blockages and numerous intestinal arteries, likely secondary to high cholesterol and hypertension. The patient should follow up with listed vascular surgeon for this within the next 5-7 days. Please return to the emergency room right away with new, worsening or different symptoms. Prescriptions: oxyCODONE [Roxicodone] 5 mg PO Q6HR PRN #15 tablet PRN Reason: Pain Referrals: [facility] [Other] - 7-10 days KELLI ARMENDARIZ MD [Staff Physician] - 7-10 days NICOLE BIRMINGHAM MD [Staff Physician] - 7-10 days [facility] [Provider Group] - 7-10 days
[2018-05-20 17:01] LABS: Hematocrit 31.6 % (30.3-42.9); Hemoglobin 9.8 gm/dl (10.1-14.3); Mean Corpuscular HGB Conc 31 % (30-34); Mean Corpuscular Volume 87 fl (79-97); Platelet Count 372 K/mm3 (140-440); Red Blood Count 3.64 M/mm3 (3.65-5.03); Red Cell Distribution Width 18.7 % (13.2-15.2)
[2018-05-20 17:16] LABS: Alanine Aminotransferase 15 units/L (7-56); Albumin 3.8 g/dL (3.9-5); BUN/Creatinine Ratio 24; Blood Urea Nitrogen 19 mg/dL (7-17); Calcium 9.2 mg/dL (8.4-10.2); Hemolysis Index 11
--- NOTE | 2018-05-20 19:53 | Cat Scan Report ---
PROCEDURE: CT ANGIO CHEST, CT ABDOMEN PELVIS W CON TECHNIQUE: Axial images were performed from the lung apices to the bases. Multiplanar reformats were performed on the acquisition scanner. Total exam DLP 2157.08 mg-centimeter HISTORY: chest wall pain, rib pain , fall, tachycardia COMPARISONS: 05/17/2018 CT abdomen and pelvis FINDINGS: Mild bilateral basal atelectasis. No pneumothorax. No focal infiltrate. Hypoventilated lung bases. Atherosclerotic aorta. Images lower neck is unremarkable. Central airways are unremarkable. No central pulmonary embolus. Calcific coronary artery disease. Normal heart size. No pericardial effusion. Epidural pain pump in the thoracic spine. No displaced rib fractures are identified. Lower lumbar degenerative facet osteoarthritis. No fracture of the pelvis. Left hip prosthesis. Osteo penic bones. Posterior left iliac wing geographic lucent lesion presumably related to previous bone biopsy. Normal enhancement and appearance of the liver, pancreas, gallbladder, bilateral adrenal glands and b ilateral kidneys. 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 There is ill-defined low-density of the splenic hilum which is resumed to be related to the phase of contrast in early arterial. Stomach is significantly distended with fluid. Small bowel is nonobstructive. Portal venous phase images demonstrate hepatic veins, portal vein to be widely patent. There is heavy atherosclerotic occlusive disease causing high-grade stenosis at the origin of the jesse iac axis, patent distally. There appear to be occlusion of the superior mesenteric artery. Normal enhancement of the right renal artery. Heavily diseased origin the left renal artery. Heavy atherosclerotic disease of the common iliac arteries bilaterally. Urinary bladder is decompressed with a Sanchez catheter. Mildly thick wall. Air bubbles anteriorly and nondependently. No free fluid. Peripheral calcified arcuate arteries of the uterus. Decompressed rectosigmoid with mild bowel wall t hickening or hyperemia. Normal appendix right lower quadrant. Slight hyperemic thick-walled appearance of the small bowel mucosa as well. Nonobstructive left renal calyceal midpole 3 mm stone. Previous lumbar fusion. Previous median sternotomy. Excretory phase images demonstrate normal contrast excretion. The left hip is somewhat obscured by the streak artifact from left hip prosthesis. However, there is a peripherally enhancing fluid collection along the region of the left greater trochanter bursa measu ring 4.9 by at least 3.3 cm compatible with a trochanteric bursitis. On the coronal images it measure s at least 10 x 3.2 cm. Correlate with clinical symptoms. L3/L4 degenerative disc disease with vacuum disc. T11 minimal wedging with sclerosis along the mid and upper vertebral body. Very early or mild mary ish fracture cannot be excluded especially along the superior right margin. IMPRESSION: Laterality of the rib pain is not known. No rib fracture identified. Mildly hypoventilated lungs. No central embolus. Heavy calcific coronary artery disease especially for a female. Heavy atherosclerosis of the aorta. 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 Inferior mesenteric artery is patent. Mild hyperemia of the small bowel mucosa and rectal/colonic wall hyperemia. Cannot exclude low flow/i schemia to the bowel related to the atherosclerosis. Stomach is extremely distended and filled with f luid. No free fluid or free air. Heavily diseased left renal artery. No pelvic fractures. Possible T11 acute compression or impaction injury. If patient has back pain, recommend further asses sment with MRI to assess for vertebral body augmentation candidacy. Nonobstructive 3 mm left renal calculus. Left greater trochanteric fluid collection compatible with bursitis. Thick-walled urinary bladder with Sanchez catheter and air bubbles. Correlate with urinalysis. Left hip arthroplasty. This document is electronically signed by Katie iHckman MD., May 20 2018 07:51:21 PM ET
--- NOTE | 2018-05-20 20:08 | XRay Report ---
PROCEDURE: XR PELVIS 1-2V TECHNIQUE: AP pelvis was performed HISTORY: fall, hx of left hip replacement COMPARISONS: CT abdomen and pelvis same day demonstrating left hip replacement. Lower lumbar degenera tive disease. Epidural pain pump. No pelvic fracture or disruption of the hip hardware FINDINGS: AP pelvis demonstrates lumbar pain pump. Arterial calcification. No fracture or dislocation of the [place] pelvis or right hip. Left hip prosthesis appears to be normally aligned and located. IMPRESSION: No acute fracture or dislocation. No fracture of the bony pelvic ring.. This document is electronically signed by Katie Hickman MD., May 20 2018 08:06:13 PM ET
[2018-05-20 21:36] VITALS: BP 156/60
== END 2018-05-20 21:35 | disposition home or self-care (01) ==
LOC: ED 16:04
DX: R07.81 Pleurodynia (principal); I10 Essential (primary) hypertension; I11.0 Hypertensive heart disease with heart failure; I50.9 Heart failure, unspecified; E11.9 Type 2 diabetes mellitus without complications; K21.9 Gastro-esophageal reflux disease without esophagitis; J44.9 Chronic obstructive pulmonary disease, unspecified; F17.210 Nicotine dependence, cigarettes, uncomplicated; Z88.0 Allergy status to penicillin; Z88.2 Allergy status to sulfonamides; Z88.1 Allergy status to other antibiotic agents; Z88.6 Allergy status to analgesic agent
CPT/HCPCS: 36415; 36569; 71275; 72170; 74177; 80053; 82550; 83690; 83735; 85027; 96374; 99285; J3010; J7030; Q9967

== ENCOUNTER 2018-07-27 12:20 | Inpatient (IN) | payer MEDICARE ==
[2018-07-27] MEDS ORDERED: NACL 0.9% 1000 ML 1,000 ML IV ONE (12:49)
--- NOTE | 2018-07-27 12:53 | Emergency Department Report ---
ED General Adult HPI - General Chief complaint: Neuro Symptoms/Deficit Stated complaint: POSS CVA Time Seen by Provider: 07/27/18 12:25 Source: patient, EMS (ems notes not available at time of chart dictation), RN notes reviewed, old records reviewed Mode of arrival: Stretcher Limitations: Altered Mental Status, Physical Limitation - History of Present Illness Initial comments: This is a 68-year-old female. The patient has been evaluated by this provider in the past. Her past medical history includes type 2 diabetes, COPD, hypertension, congestive heart failure, left-sided hip fracture, admitted to this hospital for orthopedic surgical repair in April 2018, debility, and reported left-sided weakness The patient is brought to the hospital by emergency medical services for questionable code stroke. As per verbal report from EMS, patient was found at home by caregiver, and asked, or around 11:20 AM, reportedly developed left-sided weakness, and reportedly developed slurred speech. EMS reports normal fingerstick in the field. Upon arrival to the emergency room the patient is confused. The patient is able to answer some questions, and follow some commands, but is not able to conclusively telling when her last known well time is, and she currently is unaccompanied by any friends or family for collateral information. An enclosed discharge summary from [facility] indicates the patient was recently admitted to their hospital for a similar complaint. She apparently had developed left-sided weakness, but the examining physician did not recognize specific one-sided weakness on their objective examination. She was found to have hypotension initially. The patient had a CT scan of the brain, and CT angiogram of the head and neck. The patient was found to have no evidence of critically flow-limiting stenosis or occlusion, but was found to have bilateral carotid bulb atherosclerotic disease, and was found to have these 50-60% bilateral internal carotid artery stenosis. She was also found to have extensive mural thrombus throughout the common carotid arteries. She was also found to have severe right upper extremity peripheral artery disease, due to noncalcified plaque. Patient was seen in consultation with vascular surgery, who initiated the patient on a heparin drip. Upon arrival to the emergency room, the patient is sleepy and will follow some commands. She is not able to describe exacerbating or relieving factors. The patient is also found to be hypotensive, with a blood pressure in the 60s over 20s. She is interviewed by stroke neurologist, Dr. Evonne Colin, who indicates the patient is not a TPA candidate, and does not recommend emergent acquisition of CT angiogram of the head and neck. Currently, patient is sleeping, but arousable, blood pressure is in the 120s. -: unknown Location: left, upper extremity Quality: other Consistency: other Improves with: other Worsens with: other - Related Data Home Medications Medication Instructions Recorded Confirmed Last Taken Albuterol Sulfate [Ventolin HFA] 2 puff IH Q4H PRN 04/23/18 04/23/18 Unknown Aspirin [Aspirin EC] 81 mg PO DAILY 04/23/18 04/23/18 Unknown Furosemide [Lasix TAB] 40 mg PO QDAY 04/23/18 04/23/18 Unknown Potassium Chloride 10 meq PO DAILY 04/23/18 04/23/18 Unknown Previous Rx's Medication Instructions Recorded Last Taken Type Atenolol [Tenormin] 50 mg PO DAILY #30 tablet 04/28/18 Unknown Rx AtorvaSTATin [Lipitor] 80 mg PO QHS tablet 04/28/18 Unknown Rx Atorvastatin Calcium 80 mg PO DAILY #30 tablet 04/28/18 Unknown Rx Duloxetine HCl [Cymbalta] 60 mg PO DAILY #30 capsule. 04/28/18 Unknown Rx Gabapentin [Neurontin] 600 mg PO BID #60 capsule 04/28/18 Unknown Rx Gabapentin [Neurontin] 600 mg PO BID #60 tablet 04/28/18 Unknown Rx HYDROcodone/APAP 5-325 [Valencia 1 each PO Q6H PRN #15 tablet 04/28/18 Unknown Rx 5-325 mg TAB] Lispro Insulin [HumaLOG] 0 unit SUB-Q Q6HR units 04/28/18 Unknown Rx Losartan [Cozaar] 25 mg PO QDAY #30 tablet 04/28/18 Unknown Rx Metformin HCl [Glucophage] 1,000 mg PO BID #60 tablet 04/28/18 Unknown Rx Omeprazole 40 mg PO DAILY #30 capsule. 04/28/18 Unknown Rx amLODIPine [Norvasc] 5 mg PO DAILY #30 tablet 04/28/18 Unknown Rx metFORMIN [Glucophage] 1,000 mg PO BIDDIAB tablet 04/28/18 Unknown Rx oxyCODONE [Roxicodone] 5 mg PO Q6HR PRN #15 tablet 05/20/18 Unknown Rx Allergies Allergy/AdvReac Type Severity Reaction Status Date / Time acetaminophen [From Tylenol] Allergy CAUSES Verified 06/23/15 10:22 ISSUE WITH LIVER Antihistamines - Alkylamine Allergy Shortness Verified 06/23/15 10:22 of Breath codeine Allergy Headache Verified 06/23/15 10:22 Penicillins Allergy Angioedema Verified 06/23/15 10:22 Sulfa (Sulfonamide Allergy Rash Verified 06/23/15 10:22 Antibiotics) ANTIBIOTICS Allergy Severe EXTREME Uncoded 06/23/15 09:34 STOMACH PAIN ED Review of Systems ROS: Stated complaint: POSS CVA Other details as noted in HPI Comment: Unobtainable due to pts medical conditions Constitutional: malaise, weakness Neurological: weakness, confusion, other ED Past Medical Hx - Past Medical History Previous Medical History?: Yes Hx Hypertension: Yes Hx Congestive Heart Failure: Yes Hx Diabetes: Yes Hx GERD: Yes Hx COPD: Yes Additional medical history: hyperlipidemia - Surgical History Hx Open Heart Surgery: Yes (2014) Additional Surgical History: Neck surgery, back surgery - Social History Smoking Status: Unknown if ever smoked - Medications Home Medications: Home Medications Medication Instructions Recorded Confirmed Last Taken Type Albuterol Sulfate [Ventolin HFA] 2 puff IH Q4H PRN 04/23/18 04/23/18 Unknown History Aspirin [Aspirin EC] 81 mg PO DAILY 04/23/18 04/23/18 Unknown History Furosemide [Lasix TAB] 40 mg PO QDAY 04/23/18 04/23/18 Unknown History Potassium Chloride 10 meq PO DAILY 04/23/18 04/23/18 Unknown History Atenolol [Tenormin] 50 mg PO DAILY #30 tablet 04/28/18 Unknown Rx AtorvaSTATin [Lipitor] 80 mg PO QHS tablet 04/28/18 Unknown Rx Atorvastatin Calcium 80 mg PO DAILY #30 tablet 04/28/18 Unknown Rx Duloxetine HCl [Cymbalta] 60 mg PO DAILY #30 capsule. 04/28/18 Unknown Rx Gabapentin [Neurontin] 600 mg PO BID #60 capsule 04/28/18 Unknown Rx Gabapentin [Neurontin] 600 mg PO BID #60 tablet 04/28/18 Unknown Rx HYDROcodone/APAP 5-325 [Valencia 1 each PO Q6H PRN #15 tablet 04/28/18 Unknown Rx 5-325 mg TAB] Lispro Insulin [HumaLOG] 0 unit SUB-Q Q6HR units 04/28/18 Unknown Rx Losartan [Cozaar] 25 mg PO QDAY #30 tablet 04/28/18 Unknown Rx Metformin HCl [Glucophage] 1,000 mg PO BID #60 tablet 04/28/18 Unknown Rx Omeprazole 40 mg PO DAILY #30 capsule. 04/28/18 Unknown Rx amLODIPine [Norvasc] 5 mg PO DAILY #30 tablet 04/28/18 Unknown Rx metFORMIN [Glucophage] 1,000 mg PO BIDDIAB tablet 04/28/18 Unknown Rx oxyCODONE [Roxicodone] 5 mg PO Q6HR PRN #15 tablet 05/20/18 Unknown Rx ED Physical Exam - General Limitations: Altered Mental Status, Physical Limitation General appearance: in no apparent distress, lethargic - Head Head exam: Present: atraumatic, normocephalic - Eye Eye exam: Present: normal appearance, other (patient will move her eyes to the right, superiorly, and inferiorly. However, she will not look to the left past midline.). Absent: EOMI - ENT ENT exam: Present: normal exam, normal orophraynx, mucous membranes moist, normal external ear exam - Neck Neck exam: Present: normal inspection, full ROM. Absent: tenderness, meningismus - Respiratory Respiratory exam: Present: normal lung sounds bilaterally. Absent: respiratory distress - Cardiovascular Cardiovascular Exam: Present: regular rate, normal rhythm, normal heart sounds. Absent: bradycardia, tachycardia, irregular rhythm, systolic murmur, diastolic murmur, rubs, gallop - GI/Abdominal GI/Abdominal exam: Present: soft. Absent: distended, tenderness, guarding, rebound, rigid, pulsatile mass - Rectal Rectal exam: Present: normal inspection, normal rectal tone, heme (+) stool, other (chaperoned by khalida emery) - Extremities Exam Extremities exam: Present: normal inspection, pedal edema, other ( Compartments soft. No long bony tenderness. .). Absent: full ROM (the patient will not move her left hip. She moves her bilateral upper extremities, and her right lower extremity.) - Back Exam Back exam: Present: normal inspection, full ROM. Absent: tenderness, CVA ten derness (R), CVA tenderness (L) - Neurological Exam Neurological exam: Present: altered (there is no obvious facial droop. Extraocular movements are impaired when looking to the left. Sensation appears to be intact to light touch in 4 extremities. 4 out of 5 strength left arm. 4 out of 5 strength left foot. 5 out of 5 strength right arm. 5 out of 5 stre ngth right leg.), other (detailed neurologic examination is not possible secondary to altered mental status) - Psychiatric Psychiatric exam: Present: flat affect - Skin Skin exam: Present: warm, other (erythema noted on the sacral region.) ED Course Vital Signs 07/27/18 07/27/18 07/27/18 12:35 12:47 13:00 Temperature 97.4 F L Pulse Rate 97 H 76 Respiratory 17 16 Rate Blood Pressure 86/41 98/35 [Left] O2 Sat by Pulse 100 100 Oximetry - Reevaluation(s) Reevaluation #1: 07/27/18 14:10 Found to be anemic. This appears to be chronic. Strongly guaiac positive, with brown stool. Discussed with gastroenterology, on-call, Anila Alvarado, their group will follow in consultation. Aspirin will be held. Dr. Torres will admit the patient to the medical service. 07/27/18 14:12 ED Medical Decision Making - Lab Data Result diagrams: 07/27/18 13:13 07/27/18 13:13 Vital Signs 07/27/18 07/27/18 07/27/18 12:35 12:47 13:00 Temperature 97.4 F L Pulse Rate 97 H 76 Respiratory 17 16 Rate Blood Pressure 86/41 98/35 [Left] O2 Sat by Pulse 100 100 Oximetry Lab Results 07/27/18 07/27/18 07/27/18 Range/Units 13:13 13:13 13:13 WBC 10.7 (4.5-11.0) K/mm3 RBC 3.43 L (3.65-5.03) M/mm3 Hgb 9.4 L (10.1-14.3) gm/dl Hct 28.5 L (30.3-42.9) % MCV 83 (79-97) fl MCH 27 L (28-32) pg MCHC 33 (30-34) % RDW 20.9 H (13.2-15.2) % Plt Count 677 H (140-440) K/mm3 Lymph % (Auto) 10.1 L (13.4-35.0) % [place] % (Auto) 4.7 (0.0-7.3) % Eos % (Auto) 1.0 (0.0-4.3) % Baso % (Auto) 0.5 (0.0-1.8) % Lymph # 1.1 L (1.2-5.4) K/mm3 Fulton # 0.5 (0.0-0.8) K/mm3 Eos # 0.1 (0.0-0.4) K/mm3 Baso # 0.1 (0.0-0.1) K/mm3 Seg Neutrophils % 83.7 H (40.0-70.0) % Seg Neutrophils # 9.0 H (1.8-7.7) K/mm3 PT 15.3 H (12.2-14.9) Sec. INR 1.14 H (0.87-1.13) APTT 26.8 (24.2-36.6) Sec. Thrombin Time 13.7 L (15.1-19.6) Sec. Sodium 138 (137-145) mmol/L Potassium 3.1 L (3.6-5.0) mmol/L Chloride 95.1 L (98-107) mmol/L Carbon Dioxide 20 L (22-30) mmol/L Anion Gap 26 mmol/L BUN 6 L (7-17) mg/dL Creatinine 0.7 (0.7-1.2) mg/dL Estimated GFR > 60 ml/min BUN/Creatinine Ratio 9 % Glucose 172 H (65-100) mg/dL Calcium 6.8 L (8.4-10.2) mg/dL Magnesium (1.7-2.3) mg/dL Total Creatine Kinase (30-135) units/L Troponin T < 0.010 (0.00-0.029) ng/mL TSH (0.270-4.200) mlU/mL Urine Bilirubin (Negative) Urine RBC (Auto) (0.0-6.0) /HPF 07/27/18 07/27/18 07/27/18 Range/Units 13:13 13:13 13:35 WBC (4.5-11.0) K/mm3 RBC (3.65-5.03) M/mm3 Hgb (10.1-14.3) gm/dl Hct (30.3-42.9) % MCV (79-97) fl MCH (28-32) pg MCHC (30-34) % RDW (13.2-15.2) % Plt Count (140-440) K/mm3 Lymph % (Auto) (13.4-35.0) % Fulton % (Auto) (0.0-7.3) % Eos % (Auto) (0.0-4.3) % Baso % (Auto) (0.0-1.8) % Lymph # (1.2-5.4) K/mm3 Fulton # (0.0-0.8) K/mm3 Eos # (0.0-0.4) K/mm3 Baso # (0.0-0.1) K/mm3 Seg Neutrophils % (40.0-70.0) % Seg Neutrophils # (1.8-7.7) K/mm3 PT (12.2-14.9) Sec. INR (0.87-1.13) APTT (24.2-36.6) Sec. Thrombin Time (15.1-19.6) Sec. Sodium (137-145) mmol/L Potassium (3.6-5.0) mmol/L Chloride (98-107) mmol/L Carbon Dioxide (22-30) mmol/L Anion Gap mmol/L BUN (7-17) mg/dL Creatinine (0.7-1.2) mg/dL Estimated GFR ml/min BUN/Creatinine Ratio % Glucose (65-100) mg/dL Calcium (8.4-10.2) mg/dL Magnesium 0.80 L* (1.7-2.3) mg/dL Total Creatine Kinase 221 H (30-135) units/L Troponin T (0.00-0.029) ng/mL TSH 1.050 (0.270-4.200) mlU/mL Urine Bilirubin Neg (Negative) Urine RBC (Auto) 23.0 (0.0-6.0) /HPF - EKG Data -: EKG Interpreted by Tx EKG shows normal: sinus rhythm Rate: normal - EKG Data 07/27/18 14:01 EKG today shows a sinus rhythm, 78 bpm, QTC prolonged, T-wave inversions in V2, V3, this is an abnormal EKG, the patient has not endorsed chest pain, this EKG is not consistent with ST elevation myocardial infarction. Nonspecific changes when compared to prior. This is an abnormal EKG. - Radiology Data Radiology results: report reviewed, image reviewed Report Referring Physician: CHRISTINA VICKERS Patient Name: ANTONIO CHASE Date of : 1950 Sex: Female Report Date: 2018-07-27 Report Status: Finalized Findings [address] [address] XRay Report Signed Patient: ANTONIO CHASE MR#: [id number] 56 : 1950 Acct:[id number] Age/Sex: 68 / F ADM Date: 07/27/18 Loc: ED Attending Dr: Ordering Physician: CHRISTINA VICKERS MD Date of Service: 07/27/18 Procedure(s): XR chest 1V ap Accession Number(s): [id number] cc: CHRISTINA VICKERS MD Fluoro Time In Minutes: AP CHEST :07/27/18 12:20:00 CLINICAL: Weekend hypotensive. COMPARISON:None. FINDINGS: Normal heart and pulmonary vasculature. Calcification of the aorta. The lungs are normally expanded and clear. Median sternotomy wires and mediastinal surgical clips. A neural stimulator is positioned in the mid thoracic spine. IMPRESSION: No acute cardiopulmonary process. Transcribed By: REF Dictated By: GLADYS PUGH MD Electronically Authenticated By: GLADYS PUGH MD Signed Date/Time: 07/27/18 1344 Print Report Referring Physician: CHRISTINA VICKERS Patient Name: ANTONIO OLIVAREZ PAGE Date of : 1950 Sex: Female Report Date: 2018-07-27 Report Status: Finalized Findings [address] [address] Cat Scan Report Signed Patient: ANTONIO CHASE MR#: [id number] [birth year] : 1950 Acct:[id number] Age/Sex: 68 / F ADM Date: 07/27/18 Loc: ED Attending Dr: Ordering Physician: CHRISTINA VICKERS MD Date of Service: 07/27/18 Procedure(s): CT head/brain wo con Accession Number(s): [id number] cc: CHRISTINA VICKERS MD PROCEDURE: CT HEAD/BRAIN WO CON TECHNIQUE: Computerized tomography of the head was performed without contrast material. CT DOSE LENGTH PRODUCT: 920.48 mGy-cm. HISTORY: neuro deficits <6hrs or sx present upon awakening COMPARISONS: CT head March 31, 2017. FINDINGS: Decreased attenuation regions in the periventricular and subcortical white matter are nonspecific and may represent small vessel ischemic disease, encephalopathy, edema, or a demyelinating process. Small vessel ischemic disease (leukoaraiosis) favored. Chronic encephalomalacia in the left periventricular white matter of the parietal lobe is stable compared to the prior. Ill-defined area decreased attenuation in the right subinsular cortex/right basal ganglia may represent acute ischemia. Vascular calcifications. There is no evidence for acute ischemia. There is no hemorrhage. There is no midline shift. There is no hydrocephalus. There is no mass. Age appropriate jama-white matter attenuation is noted. There is no calvarial fracture. The temporal bones demonstrate aerated mastoid air cells. The middle ears appear unremarkable. Paranasal sinuses are unremarkable. Globes are intact. IMPRESSION: * Possible small focal acute/subacute ischemia in the right subinsular cortex/right basal ganglia. Further evaluation with MRI may be helpful if clinically indicated. * Also chronic ischemic disease. * 07/27/2018 at 0950 PT: I, Celio Tran MD, discussed the findings over the phone with Dr. Vickers. This document is electronically signed by Celio Tran MD., Jul 27 2018 12:51:56 PM ET Transcribed By: TYM Dictated By: CELIO TRAN MD Electronically Authenticated By: CELIO TRAN MD Signed Date/Time: 07/27/18 1255 Critical Care Time: Yes Critical care time in (mins) excluding proc time.: 35 Critical care attestation.: If time is entered above; I have spent that time in minutes in the direct care of this critically ill patient, excluding procedure time. ED Disposition Clinical Impression: Hypotension, Hypomagnesemia, Hypokalemia, Weakness, LGI bleed Disposition: OP ADMIT IP TO THIS HOSP Is pt being admited?: Yes Does the pt Need Aspirin: No (held bc of gi bleed) Condition: Fair
[2018-07-27 13:30] LABS: Basophils # (Auto) 0.1 K/mm3 (0.0-0.1); Basophils % (Auto) 0.5 % (0.0-1.8); Eosinophils # (Auto) 0.1 K/mm3 (0.0-0.4); Hematocrit 28.5 % (30.3-42.9); Hemoglobin 9.4 gm/dl (10.1-14.3); Lymphocytes # (Auto) 1.1 K/mm3 (1.2-5.4); Lymphocytes % (Auto) 10.1 % (13.4-35.0); Mean Corpuscular HGB Conc 33 % (30-34); Mean Corpuscular Volume 83 fl (79-97); Monocytes # (Auto) 0.5 K/mm3 (0.0-0.8); Monocytes % (Auto) 4.7 % (0.0-7.3); Platelet Count 677 K/mm3 (140-440); Red Blood Count 3.43 M/mm3 (3.65-5.03)
[2018-07-27 13:37] LABS: Red Cell Distribution Width 20.9 % (13.2-15.2)
[2018-07-27 13:42] LABS: INR 1.14 (0.87-1.13); Partial Thromboplastin Time 26.8 Sec. (24.2-36.6); Thrombin Time 13.7 Sec. (15.1-19.6)
[2018-07-27 13:49] LABS: BUN/Creatinine Ratio 9; Blood Urea Nitrogen 6 mg/dL (7-17); Calcium 6.8 mg/dL (8.4-10.2); Hemolysis Index 15
--- NOTE | 2018-07-27 13:52 | XRay Report ---
AP CHEST :07/27/18 12:20:00 CLINICAL: Weekend hypotensive. COMPARISON:None. FINDINGS: Normal heart and pulmonary vasculature. Calcification of the aorta. The lungs are normally expanded and clear. Median sternotomy wires and mediastinal surgical clips. A neural stimulator is positioned in the mid thoracic spine. IMPRESSION: No acute cardiopulmonary process.
[2018-07-27] MEDS ORDERED: K-DUR PO ONE ×2 (13:53→15:40)
[2018-07-27] MEDS ORDERED: MAG-OX PO STA (13:58)
[2018-07-27] MEDS ORDERED: MAGNESIUM SULFATE 1 GM in NACL 0.9% 50 ML IV ONE (13:58)
[2018-07-27] MEDS ORDERED: MAGNESIUM SULFATE 2GM/50ML 2 GM/50 ML BAG IV ONE (13:58)
[2018-07-27 13:59] LABS: Bacteria,Urine 4+ /HPF (Negative); Bilirubin,Urine NEG (Negative); Blood,Urine SM (Negative); Color,Urine Yellow (Yellow); Protein,Urine <15 mg/dL mg/dL (Negative); Urobilinogen,Urine < 2.0 mg/dL (<2.0)
[2018-07-27 14:02] LABS: WBC,Urine > 182.0 /HPF (0.0-6.0)
--- NOTE | 2018-07-27 14:25 | History and Physical Report ---
History of Present Illness Chief complaint: Confused History of present illness: 68 YO Female with DM, COPD, HTN, CHF, OA, Debility presents to ED for evaluation. Pt is confused and is unable to provide detailed history. Pt history taken from medical record, ED staff, and family members. As per family, the patient was in her usual state of health upon waking from sleep around 8030 hrs. Pt was found to have , slurred speech and inability to respond to question. EMS notified, and upon arrival the patient was found to have a neurologic deficit. A code stroke was called and the patient transported to [facility]. PT seen and evaluated in ED and found to have symptoms consistent with CVA as well as Encephalopathy, UTI, Acidosis, and heme positive stools and suspicion of GI bleeding complicated by anemia. Pt admitted to [facility] and initiated on CVA protocol. Pt is outside therapeutic window for TPA at time of my evaluation. Neurology consulted in ED, GI consulted. Pt is confused, but has positive gag reflex, and is able to protect her airway.Prior admission on 04/23/18 reviewed. All listed medication reconciled at time of admission. Past History Past Medical History: CAD, diabetes, heart failure, hypertension, hyperlipidemia Past Surgical History: CABG, Other (Neck/Back Surgery) Social history: . denies: smoking, alcohol abuse, prescription drug abuse Family history: diabetes, hypertension Medications and Allergies Allergies Allergy/AdvReac Type Severity Reaction Status Date / Time acetaminophen [From Tylenol] Allergy CAUSES Verified 06/23/15 10:22 ISSUE WITH LIVER Antihistamines - Alkylamine Allergy Shortness Verified 06/23/15 10:22 of Breath codeine Allergy Headache Verified 06/23/15 10:22 Penicillins Allergy Angioedema Verified 06/23/15 10:22 Sulfa (Sulfonamide Allergy Rash Verified 06/23/15 10:22 Antibiotics) ANTIBIOTICS Allergy Severe EXTREME Uncoded 06/23/15 09:34 STOMACH PAIN Home Medications Medication Instructions Recorded Confirmed Last Taken Type Potassium Chloride 10 meq PO DAILY 04/23/18 07/27/18 Unknown History Duloxetine HCl [Cymbalta] 60 mg PO DAILY #30 capsule. 04/28/18 07/27/18 Unknown Rx Metformin HCl [Glucophage] 1,000 mg PO BID #60 tablet 04/28/18 07/27/18 Unknown Rx AtorvaSTATin [Lipitor] 40 mg PO DAILY 07/27/18 07/27/18 Unknown History Citalopram [celeXA] 20 mg PO DAILY 07/27/18 07/27/18 Unknown History Fluticasone/Salmeterol [Advair 1 puff IH BID 07/27/18 07/27/18 Unknown History Diskus 250-50 mcg] Gabapentin [Neurontin] 900 mg PO BID 07/27/18 07/27/18 Unknown History Magnesium Oxide [Mag-Ox] 400 mg PO DAILY 07/27/18 07/27/18 Unknown History Multivit-Minerals/Ferrous Gluc 18 mg PO DAILY 07/27/18 07/27/18 Unknown History [Multi-Brandi Liquid] Omeprazole 40 mg PO DAILY 07/27/18 07/27/18 Unknown History Propranolol [Inderal] 10 mg PO TID 07/27/18 07/27/18 Unknown History Venlafaxine HCl [Venlafaxine] 100 mg PO BID 07/27/18 07/27/18 Unknown History glipiZIDE [Glucotrol] 2.5 mg PO DAILY 07/27/18 07/27/18 Unknown History Active Meds: Active Medications Potassium Chloride (Kcl 10meq/100ml) 10 meq in 100 mls @ 100 mls/hr IV Q1H CHRISTOPHER Stop: 07/27/18 17:59 Magnesium Sulfate (Magnesium Sulfate 2gm/50ml) 2 gm in 50 mls @ 100 mls/hr IV ONCE ONE Stop: 07/27/18 14:27 Last Admin: 07/27/18 14:12 Dose: 100 mls/hr Documented by: Magnesium Sulfate 1 gm/ Sodium (Chloride) 52 mls @ 52 mls/hr IV ONCE ONE Stop: 07/27/18 14:57 Review of Systems ROS unobtainable: due to mental status Exam - Constitutional Vitals: Temp Pulse Resp BP Pulse Ox 97.4 F L 76 16 98/35 100 07/27/18 13:00 07/27/18 13:00 07/27/18 13:00 07/27/18 13:00 07/27/18 13:00 General appearance: Present: mild distress - EENT Eyes: Present: PERRL ENT: hearing intact, clear oral mucosa - Neck Neck: Present: supple, normal ROM - Respiratory Respiratory effort: normal Respiratory: bilateral: CTA - Cardiovascular Heart Sounds: Present: S1 & S2. Absent: rub, click - Extremities Extremities: pulses symmetrical, No edema Peripheral Pulses: within normal limits - Abdominal General gastrointestinal: Present: soft, non-tender, non-distended, normal bowel sounds Female genitourinary: Present: normal - Integumentary Integumentary: Present: clear, warm, dry - Musculoskeletal Musculoskeletal: gait normal, strength equal bilaterally - Psychiatric Psychiatric: no appropriate mood/affect, no intact judgment & insight, no memory intact, other (cognitive slowing) - Neurologic Neurologic: CNII-XII intact, moves all extremities Results - Labs CBC & Chem 7: 07/27/18 13:13 07/27/18 13:13 Labs: Abnormal lab results 07/27/18 07/27/18 07/27/18 Range/Units 13:13 13:13 13:13 RBC 3.43 L (3.65-5.03) M/mm3 Hgb 9.4 L (10.1-14.3) gm/dl Hct 28.5 L (30.3-42.9) % MCH 27 L (28-32) pg RDW 20.9 H (13.2-15.2) % Plt Count 677 H (140-440) K/mm3 Lymph % (Auto) 10.1 L (13.4-35.0) % Lymph # 1.1 L (1.2-5.4) K/mm3 Seg Neutrophils % 83.7 H (40.0-70.0) % Seg Neutrophils # 9.0 H (1.8-7.7) K/mm3 PT 15.3 H (12.2-14.9) Sec. INR 1.14 H (0.87-1.13) Thrombin Time 13.7 L (15.1-19.6) Sec. Potassium 3.1 L (3.6-5.0) mmol/L Chloride 95.1 L (98-107) mmol/L Carbon Dioxide 20 L (22-30) mmol/L BUN 6 L (7-17) mg/dL Glucose 172 H (65-100) mg/dL Calcium 6.8 L (8.4-10.2) mg/dL Magnesium (1.7-2.3) mg/dL Total Creatine Kinase (30-135) units/L Urine WBC (Auto) (0.0-6.0) /HPF 07/27/18 07/27/18 Range/Units 13:13 13:35 RBC (3.65-5.03) M/mm3 Hgb (10.1-14.3) gm/dl Hct (30.3-42.9) % MCH (28-32) pg RDW (13.2-15.2) % Plt Count (140-440) K/mm3 Lymph % (Auto) (13.4-35.0) % Lymph # (1.2-5.4) K/mm3 Seg Neutrophils % (40.0-70.0) % Seg Neutrophils # (1.8-7.7) K/mm3 PT (12.2-14.9) Sec. INR (0.87-1.13) Thrombin Time (15.1-19.6) Sec. Potassium (3.6-5.0) mmol/L Chloride (98-107) mmol/L Carbon Dioxide (22-30) mmol/L BUN (7-17) mg/dL Glucose (65-100) mg/dL Calcium (8.4-10.2) mg/dL Magnesium 0.80 L* (1.7-2.3) mg/dL Total Creatine Kinase 221 H (30-135) units/L Urine WBC (Auto) > 182.0 H (0.0-6.0) /HPF Assessment and Plan - Patient Problems (1) CVA (cerebral vascular accident) Current Visit: Yes Status: Acute Qualifiers: Precerebral and cerebral artery: unspecified precerebral artery Plan to address problem: Stroke Protocol: Admit to IMCU, CT head, MRI Brain, MRA Brain, Echo, Carotid Doppler, Echo, antiplatelet therapy, lipid panel, PT/OT/Speech, neurology consulted, neuro checks, seizure precautions, (2) UTI (urinary tract infection) Current Visit: Yes Status: Acute Qualifiers: Encounter type: initial encounter Plan to address problem: IV antibiotic therapy, CBC, Urinalysis, (3) Encephalopathy Current Visit: Yes Status: Acute Plan to address problem: CT Head, Neuro check, Seizure precautions, aspiration precautions, fall precautions. (4) GI bleed Current Visit: Yes Status: Acute Plan to address problem: GI consulted, Stool hemoccult, PPI therapy, CBC, repeat CBC in AM. (5) Acidosis Current Visit: Yes Status: Acute Plan to address problem: IVF resuscitation therapy, repeat bmp in am. (6) DVT prophylaxis Current Visit: Yes Status: Acute Plan to address problem: SCD to BLE while in bed, hold anticoagulation for now secondary to GI bleed,
[2018-07-27] MEDS ORDERED: PROVENTIL IH PRN (14:34)
[2018-07-27] MEDS ORDERED: SODIUM CHLORIDE FLUSH SYRINGE 10 ML IV PRN (14:34)
[2018-07-27 14:45] LABS: Alanine Aminotransferase 13 units/L (7-56); Albumin 2.6 g/dL (3.9-5)
[2018-07-27 14:52] LABS: Bilirubin,Direct < 0.2 mg/dL (0-0.2)
[2018-07-27] MEDS: ROCEPHIN/NS 1 GM/50 ML 1 GM/50 ML BAG IV SCH (15:10)
[2018-07-27] MEDS ORDERED: KCL 10MEQ/100ML 10 MEQ/100 ML BAG IV ONE (15:39)
[2018-07-27] MEDS: KCL 10MEQ/100ML 10 MEQ/100 ML BAG IV SCH ×4 (15:49→22:21)
--- NOTE | 2018-07-27 16:04 | Gastroenterology Consultation ---
History of Present Illness - Reason for Consult Consult date: 07/27/18 GI bleed Requesting physician: CHRISTINA CAMARENA - History of Present Illness Patient is a 68 y/o female with PMH of DM, COPD, HTN, CHF, CAD, carotid artery stenosis, left hip fracture (s/p repair 04/24/[address] Hull), and debility who presented to ED for evaluation left-sided weakness and was admitted for possible stroke. Upon admission, she underwent a CT of the brain and CTA of head/neck that was negative for critically flow-limiting stenosis or occlusion but did show 50-60% bilateral internal carotid artery stenosis, extensive mural thrombus throughout the common carotid arteries, and severe right upper extremity peripheral artery disease, due to noncalcified plaque. Neurology and vascular consulted. She was also found to have anemia with heme + stool to which GI has been consulted. Patient is previously known to our service. She has a hx of chronic CINDY due to angiodysplasia of the GI tract. Last EGD/enteroscopy 06/[address] Li revealed multiple small, benign-appearing ulcers in the third portion of the duodenum, small AVM or a tiny bleeding point from an ulcer ablated in the third portion of the duodenum, and mild minimal erosive gastritis. Last colonoscopy 2014 revealed polyps (TA). This afternoon patient resting on stretcher in ED w/o acute distress but noted to be slightly confused. No active signs of bleeding (stool brown upon exam per ER provider). Denies abd pain or N/V. Takes chronic iron supplement at home. Past History Past Medical History: other (as per HPI) Past Surgical History: CABG, Other (Neck surgery, back surgery) Medications and Allergies Allergies Allergy/AdvReac Type Severity Reaction Status Date / Time acetaminophen [From Tylenol] Allergy CAUSES Verified 06/23/15 10:22 ISSUE WITH LIVER Antihistamines - Alkylamine Allergy Shortness Verified 06/23/15 10:22 of Breath codeine Allergy Headache Verified 06/23/15 10:22 Penicillins Allergy Angioedema Verified 06/23/15 10:22 Sulfa (Sulfonamide Allergy Rash Verified 06/23/15 10:22 Antibiotics) ANTIBIOTICS Allergy Severe EXTREME Uncoded 06/23/15 09:34 STOMACH PAIN Home Medications Medication Instructions Recorded Confirmed Last Taken Type Potassium Chloride 10 meq PO DAILY 04/23/18 07/27/18 Unknown History Duloxetine HCl [Cymbalta] 60 mg PO DAILY #30 capsule. 04/28/18 07/27/18 Un known Rx Metformin HCl [Glucophage] 1,000 mg PO BID #60 tablet 04/28/18 07/27/18 Unknown Rx AtorvaSTATin [Lipitor] 40 mg PO DAILY 07/27/18 07/27/18 Unknown History Citalopram [celeXA] 20 mg PO DAILY 07/27/18 07/27/18 Unknown History Fluticasone/Salmeterol [Advair 1 puff IH BID 07/27/18 07/27/18 Unknown History Diskus 250-50 mcg] Gabapentin [Neurontin] 900 mg PO BID 07/27/18 07/27/18 Unknown History Magnesium Oxide [Mag-Ox] 400 mg PO DAILY 07/27/18 07/27/18 Unknown History Multivit-Minerals/Ferrous Gluc 18 mg PO DAILY 07/27/18 07/27/18 Unknown History [Multi-Brandi Liquid] Omeprazole 40 mg PO DAILY 07/27/18 07/27/18 Unknown History Propranolol [Inderal] 10 mg PO TID 07/27/18 07/27/18 Unknown History Venlafaxine HCl [Venlafaxine] 100 mg PO BID 07/27/18 07/27/18 Unknown History glipiZIDE [Glucotrol] 2.5 mg PO DAILY 07/27/18 07/27/18 Unknown History Active Meds: Active Medications Albuterol (Proventil) 2.5 mg IH Q3HRT PRN PRN Reason: Shortness Of Breath Potassium Chloride (Kcl 10meq/100ml) 10 meq in 100 mls @ 100 mls/hr IV Q1H CHRISTOPHER Stop: 07/27/18 17:59 Last Admin: 07/27/18 15:49 Dose: 100 mls/hr Documented by: Ceftriaxone Sodium (Rocephin/Ns 1 Gm/50 Ml) 1 gm in 50 mls @ 100 mls/hr IV Q24HR CHRISTOPHER; Protocol Last Admin: 07/27/18 15:10 Dose: 100 mls/hr Documented by: Sodium Chloride (Sodium Chloride Flush Syringe 10 Ml) 10 ml IV BID CHRISTOPHER Sodium Chloride (Sodium Chloride Flush Syringe 10 Ml) 10 ml IV PRN PRN PRN Reason: LINE FLUSH medications reviewed/updated as required Review of Systems - Review of Systems ROS unobtainable: due to mental status Exam - Constitutional Vital Signs: Temp Pulse Resp BP Pulse Ox 97.4 F L 67 16 117/33 98 07/27/18 13:00 07/27/18 14:01 07/27/18 14:01 07/27/18 14:01 07/27/18 14:01 General appearance: mild distress - Respiratory Respiratory: bilateral: CTA (anterior) - Cardiovascular Rhythm: regular - Gastrointestinal General gastrointestinal: Present: soft, non-distended, normal bowel sounds - Neurologic Neurological: oriented to person, other - Labs CBC & Chem 7: 07/27/18 13:13 07/27/18 13:13 Lab Results: Laboratory Results - last 24 hr 07/27/18 07/27/18 07/27/18 13:13 13:13 13:13 WBC 10.7 RBC 3.43 L Hgb 9.4 L Hct 28.5 L MCV 83 MCH 27 L MCHC 33 RDW 20.9 H Plt Count 677 H Lymph % (Auto) 10.1 L Steele % (Auto) 4.7 Eos % (Auto) 1.0 Baso % (Auto) 0.5 Lymph # 1.1 L Steele # 0.5 Eos # 0.1 Baso # 0.1 Seg Neutrophils % 83.7 H Seg Neutrophils # 9.0 H PT 15.3 H INR 1.14 H APTT 26.8 Thrombin Time 13.7 L Sodium 138 Potassium 3.1 L Chloride 95.1 L Carbon Dioxide 20 L Anion Gap 26 BUN 6 L Creatinine 0.7 Estimated GFR > 60 BUN/Creatinine Ratio 9 Glucose 172 H Calcium 6.8 L Magnesium Total Bilirubin Direct Bilirubin Indirect Bilirubin AST ALT Alkaline Phosphatase Total Creatine Kinase Troponin T < 0.010 Total Protein Albumin Albumin/Globulin Ratio TSH Urine Color Urine Turbidity Urine pH Ur Specific [place] Urine Protein Urine Glucose (UA) Urine Ketones Urine Blood Urine Nitrite Urine Bilirubin Urine Urobilinogen Ur Leukocyte Esterase Urine WBC (Auto) Urine RBC (Auto) Urine Bacteria (Auto) Urine WBC Clumps Blood Type 07/27/18 07/27/18 07/27/18 13:13 13:13 13:35 WBC RBC Hgb Hct MCV MCH MCHC RDW Plt Count Lymph % (Auto) Steele % (Auto) Eos % (Auto) Baso % (Auto) Lymph # Steele # Eos # Baso # Seg Neutrophils % Seg Neutrophils # PT INR APTT Thrombin Time Sodium Potassium Chloride Carbon Dioxide Anion Gap BUN Creatinine Estimated GFR BUN/Creatinine Ratio Glucose Calcium Magnesium 0.80 L* Total Bilirubin Direct Bilirubin Indirect Bilirubin AST ALT Alkaline Phosphatase Total Creatine Kinase 221 H Troponin T Total Protein Albumin Albumin/Globulin Ratio TSH 1.050 Urine Color Yellow Urine Turbidity Cloudy Urine pH 6.0 Ur Specific [place] 1.006 Urine Protein <15 mg/dl Urine Glucose (UA) Neg Urine Ketones Neg Urine Blood Sm Urine Nitrite Pos Urine Bilirubin Neg Urine Urobilinogen < 2.0 Ur Leukocyte Esterase Lg Urine WBC (Auto) > 182.0 H Urine RBC (Auto) 23.0 Urine Bacteria (Auto) 4+ Urine WBC Clumps 3+ Blood Type 07/27/18 07/27/18 13:53 14:57 WBC RBC Hgb Hct MCV MCH MCHC RDW Plt Count Lymph % (Auto) Steele % (Auto) Eos % (Auto) Baso % (Auto) Lymph # Steele # Eos # Baso # Seg Neutrophils % Seg Neutrophils # PT INR APTT Thrombin Time Sodium Potassium Chloride Carbon Dioxide Anion Gap BUN Creatinine Estimated GFR BUN/Creatinine Ratio Glucose Calcium Magnesium Total Bilirubin 0.20 Direct Bilirubin < 0.2 Indirect Bilirubin 0.0 AST 21 ALT 13 Alkaline Phosphatase 173 H Total Creatine Kinase Troponin T Total Protein 6.2 L Albumin 2.6 L Albumin/Globulin Ratio 0.7 TSH Urine Color Urine Turbidity Urine pH Ur Specific [place] Urine Protein Urine Glucose (UA) Urine Ketones Urine Blood Urine Nitrite Urine Bilirubin Urine Urobilinogen Ur Leukocyte Esterase Urine WBC (Auto) Urine RBC (Auto) Urine Bacteria (Auto) Urine WBC Clumps Blood Type A NEGATIVE Assessment and Plan 1.GI bleed? 2.anemia-chronic -H/H 9.4/28.5-stable compared to previous labs -continue to monitor H/H and transfuse as needed -no active signs of bleeding (stool brown but heme + per ER provider exam) -Last EGD/enteroscopy 06/[address] Li revealed multiple small, benign- appearing ulcers in the third portion of the duodenum, small AVM or a tiny bleeding point from an ulcer ablated in the third portion of the duodenum, and mild minimal erosive gastritis -Last colonoscopy 2014 revealed polyps (TA) -etiology-patient has a hx of CINDY 2/2 most likely angiodysplasia of GI tract -no plan for scope at this time unless overt bleeding develops -start on PPI -resume home iron supplement -okay for anticoagulation if needed at this time-monitor and hold for active signs of bleeding -continue supportive care -will follow
--- NOTE | 2018-07-27 18:33 | Consultation ---
History of Present Illness Consult date: 07/27/18 Past History Past Medical History: other (as per HPI) Past Surgical History: CABG, Other (Neck surgery, back surgery) Medications and Allergies Allergies Allergy/AdvReac Type Severity Reaction Status Date / Time acetaminophen [From Tylenol] Allergy CAUSES Verified 06/23/15 10:22 ISSUE WITH LIVER Antihistamines - Alkylamine Allergy Shortness Verified 06/23/15 10:22 of Breath codeine Allergy Headache Verified 06/23/15 10:22 Penicillins Allergy Angioedema Verified 06/23/15 10:22 Sulfa (Sulfonamide Allergy Rash Verified 06/23/15 10:22 Antibiotics) ANTIBIOTICS Allergy Severe EXTREME Uncoded 06/23/15 09:34 STOMACH PAIN Home Medications Medication Instructions Recorded Confirmed Last Taken Type Potassium Chloride 10 meq PO DAILY 04/23/18 07/27/18 Unknown History Duloxetine HCl [Cymbalta] 60 mg PO DAILY #30 capsule. 04/28/18 07/27/18 Unknown Rx Metformin HCl [Glucophage] 1,000 mg PO BID #60 tablet 04/28/18 07/27/18 Unknown Rx AtorvaSTATin [Lipitor] 40 mg PO DAILY 07/27/18 07/27/18 Unknown History Citalopram [celeXA] 20 mg PO DAILY 07/27/18 07/27/18 Unknown History Fluticasone/Salmeterol [Advair 1 puff IH BID 07/27/18 07/27/18 Unknown History Diskus 250-50 mcg] Gabapentin [Neurontin] 900 mg PO BID 07/27/18 07/27/18 Unknown History Magnesium Oxide [Mag-Ox] 400 mg PO DAILY 07/27/18 07/27/18 Unknown History Multivit-Minerals/Ferrous Gluc 18 mg PO DAILY 07/27/18 07/27/18 Unknown History [Multi-Brandi Liquid] Omeprazole 40 mg PO DAILY 07/27/18 07/27/18 Unknown History Propranolol [Inderal] 10 mg PO TID 07/27/18 07/27/18 Unknown History Venlafaxine HCl [Venlafaxine] 100 mg PO BID 07/27/18 07/27/18 Unknown History glipiZIDE [Glucotrol] 2.5 mg PO DAILY 07/27/18 07/27/18 Unknown History Active Meds: Active Medications Albuterol (Proventil) 2.5 mg IH Q3HRT PRN PRN Reason: Shortness Of Breath Ceftriaxone Sodium (Rocephin/Ns 1 Gm/50 Ml) 1 gm in 50 mls @ 100 mls/hr IV Q24HR CHRISTOPHER; Protocol Last Admin: 07/27/18 15:10 Dose: 100 mls/hr Documented by: Pantoprazole Sodium (Protonix) 40 mg IV BID CHRISTOPHER Sodium Chloride (Sodium Chloride Flush Syringe 10 Ml) 10 ml IV BID CHRISTOPHER Sodium Chloride (Sodium Chloride Flush Syringe 10 Ml) 10 ml IV PRN PRN PRN Reason: LINE FLUSH Physical Examination - Vital Signs Vital Signs: Vital Signs Pulse Resp Pulse Ox 97 H 17 100 07/27/18 12:35 07/27/18 12:35 07/27/18 12:35 Results - Laboratory Findings CBC and BMP: 07/27/18 13:13 07/27/18 13:13 Abnormal Lab Findings: Abnormal Labs 07/27/18 07/27/18 07/27/18 13:13 13:13 13:13 RBC 3.43 L Hgb 9.4 L Hct 28.5 L MCH 27 L RDW 20.9 H Plt Count 677 H Lymph % (Auto) 10.1 L Lymph # 1.1 L Seg Neutrophils % 83.7 H Seg Neutrophils # 9.0 H PT 15.3 H INR 1.14 H Thrombin Time 13.7 L Potassium 3.1 L Chloride 95.1 L Carbon Dioxide 20 L BUN 6 L Glucose 172 H POC Glucose Calcium 6.8 L Magnesium Alkaline Phosphatase Total Creatine Kinase Total Protein Albumin Urine WBC (Auto) 07/27/18 07/27/18 07/27/18 13:13 13:35 13:53 RBC Hgb Hct MCH RDW Plt Count Lymph % (Auto) Lymph # Seg Neutrophils % Seg Neutrophils # PT INR Thrombin Time Potassium Chloride Carbon Dioxide BUN Glucose POC Glucose Calcium Magnesium 0.80 L* Alkaline Phosphatase 173 H Total Creatine Kinase 221 H Total Protein 6.2 L Albumin 2.6 L Urine WBC (Auto) > 182.0 H 07/27/18 17:18 RBC Hgb Hct MCH RDW Plt Count Lymph % (Auto) Lymph # Seg Neutrophils % Seg Neutrophils # PT INR Thrombin Time Potassium Chloride Carbon Dioxide BUN Glucose POC Glucose 180 H Calcium Magnesium Alkaline Phosphatase Total Creatine Kinase Total Protein Albumin Urine WBC (Auto) Assessment and Plan [facility] Tele[facility]urology Consult Services Impression: * RO Acute Ischemic Stroke. Patient is a 68-year-old woman presenting with prior history of stroke who presents now with history of generalized weakness. Patient itself is not able to provide much history as to what are her new symptoms that brings her here. Furthermore, time of onset is unclear. There is no family members available to provide any other history. On clinical examination at bedside with telemedicine, there is clear indication of left sided visual field deficit. The duration of this is unclear and not clear if this is related to an old stroke. Patient result does not appear to be aware of the visual field deficit. Not a tpa candidate due to: time of onset is unclear. Presentation is not suggestive of Large Vessel Occlusive Disease. Thrombectomy would not be recommended. Comments: [facility] contacted: [phone] [facility] at bedside: 1239 NIHSS assessment time: 1243 Recommendations: * Not candidate for TPA thrombolytics. * Would admitted for further stroke workup. * MRI of the head with and without contrast if able. * MRA of the head without contrast. * MRA of the neck with contrast if able. * Start antiplatelet therapy now. * Lipid panel. * DVT prophylaxis. * Physical therapy occupational therapy speech therapy. * In-house neurology to evaluate the patient. Discussed with ED MD Please call with questions Javier Ramírez MD [facility] ----- ---- CC Stroke alert History of Present Illness Patient is a pleasant 68-year-old woman with history of prior stroke, unclear baseline deficits, now presenting with what appears to be family members concerned about weakness that appears to be increased as compared with her baseline. Family is not present for the interview. Patient is not aware and does not know why she's here. She denies any new symptoms. Exam: Patient is in no apparent distress. Patient appears as stated age. No obvious acute respiratory or cardiac distress. Patient is well groomed and well- nourished. 1A: Level of Consciousness - Alert; keenly responsive 1B: Ask Month and Age - Both Questions Right 1C: 'Blink Eyes' & 'Squeeze Hands' - Performs Both Tasks 2: Test Horizontal Extraocular Movements - Normal 3: Test Visual Anand - patient is left sided visual field deficit-2 4: Test Facial Palsy - Normal symmetry 5A: Test Left Arm Motor Drift - No Drift for 10 Seconds 5B: Test Right Arm Motor Drift - No Drift for 10 Seconds 6A: Test Left Leg Motor Drift - No Drift for 5 Seconds 6B: Test Right Leg Motor Drift - No Drift for 5 Seconds 7: Test Limb Ataxia - No Ataxia 8: Test Sensation - reports reduced sensation left sided-1 9: Test Language/Aphasia - Normal; No aphasia 10: Test Dysarthria - Normal 11: Test Extinction/Inattention - No abnormality NIHSS 3 Medical Decision Making: - Extensive number of diagnosis or management options are considered above. - Extensive amount of complex data reviewed. - High risk of complication and/or morbidity or mortality are associated with differential diagnostic considerations above. - There may be Uncertain outcome and increased probability of prolonged functional impairment or high probability of severe prolonged functional impairment associated with some of these differential diagnosis. Medical Data Reviewed: 1.Data reviewed include clinical labs, radiology,Medical Tests; 2.Tests results discussed w/performing or interpreting physician; 3.Obtaining/reviewing old medical records; 4.Obtaining case history from another source; 5.Independent review of image, tracing or specimen. Patient was informed the Neurology Consult would happen via telehealth (remote video) and consented to receiving care in this manner.
[2018-07-27] MEDS ORDERED: D50W (25GM) Syringe IV PRN (21:05)
[2018-07-27] MEDS: PROTONIX IV SCH (22:23)
[2018-07-27] MEDS: SODIUM CHLORIDE FLUSH SYRINGE 10 ML IV SCH (22:23)
[2018-07-27] MEDS: HumuLIN R SUB-Q SCH (23:23)
[2018-07-27] MEDS ORDERED: IBUPROFEN PO PRN (23:25)
[2018-07-27] MEDS: NEURONTIN PO SCH (23:50)
[2018-07-28 06:33] LABS: Alanine Aminotransferase 10 units/L (7-56); Albumin 1.8 g/dL (3.9-5); BUN/Creatinine Ratio 14; Blood Urea Nitrogen 7 mg/dL (7-17); Calcium 6.5 mg/dL (8.4-10.2); Hemolysis Index 8
[2018-07-28 06:38] LABS: Hematocrit 25.2 % (30.3-42.9); Hemoglobin 7.6 gm/dl (10.1-14.3); Mean Corpuscular HGB Conc 30 % (30-34); Mean Corpuscular Volume 91 fl (79-97); Platelet Count 604 K/mm3 (140-440); Red Blood Count 2.77 M/mm3 (3.65-5.03)
[2018-07-28 06:40] LABS: Red Cell Distribution Width 21.4 % (13.2-15.2)
[2018-07-28 08:02] LABS: Basophils % (Manual) 0 % (0.0-1.8); Eosinophils % (Manual) 0 % (0.0-4.3); Total Cells Counted 100
[2018-07-28 08:03] LABS: Anisocytosis 1+; Platelet Estimate Consistent w Auto
--- NOTE | 2018-07-28 08:25 | Progress Note ---
Subjective Date of service: 07/28/18 Interval history: U went over the CT of the head and there were numerous old ischemic infartcts most are posterior left MCA in the right hemisphere deep white matter review of record shows multiple risk factors for stroek embolic work up is being followed will follow could be seizure Objective - Vital Sign Vital Signs - 12hr 07/27/18 07/28/18 07/28/18 22:00 00:00 00:24 Temperature 97.7 F Pulse Rate 74 Respiratory Rate Respiratory 14 Rate [Left Hip] Blood Pressure O2 Sat by Pulse 100 Oximetry 07/28/18 07/28/18 07/28/18 00:28 00:30 00:40 Temperature Pulse Rate 75 76 78 Respiratory 14 13 18 Rate Respiratory Rate [Left Hip] Blood Pressure O2 Sat by Pulse 98 100 100 Oximetry 07/28/18 07/28/18 07/28/18 00:50 01:00 01:10 Temperature Pulse Rate 78 76 77 Respiratory 15 14 14 Rate Respiratory Rate [Left Hip] Blood Pressure O2 Sat by Pulse 100 97 96 Oximetry 07/28/18 07/28/18 07/28/18 01:20 01:30 01:40 Temperature Pulse Rate 80 80 80 Respiratory 13 17 15 Rate Respiratory Rate [Left Hip] Blood Pressure O2 Sat by Pulse 98 97 100 Oximetry 07/28/18 07/28/18 07/28/18 01:50 02:00 02:10 Temperature Pulse Rate 83 82 84 Respiratory 18 17 21 Rate Respiratory Rate [Left Hip] Blood Pressure O2 Sat by Pulse 99 98 100 Oximetry 07/28/18 07/28/18 07/28/18 02:20 02:30 02:40 Temperature Pulse Rate 89 82 82 Respiratory 17 15 16 Rate Respiratory Rate [Left Hip] Blood Pressure O2 Sat by Pulse 99 99 99 Oximetry 07/28/18 07/28/18 07/28/18 02:50 03:00 03:10 Temperature Pulse Rate 84 80 80 Respiratory 15 16 13 Rate Respiratory Rate [Left Hip] Blood Pressure O2 Sat by Pulse 100 100 100 Oximetry 07/28/18 07/28/18 07/28/18 03:20 03:30 03:40 Temperature Pulse Rate 80 79 83 Respiratory 15 16 14 Rate Respiratory Rate [Left Hip] Blood Pressure O2 Sat by Pulse 100 99 88 Oximetry 07/28/18 07/28/18 07/28/18 03:50 04:00 04:10 Temperature 97.7 F Pulse Rate 83 79 81 Respiratory 15 20 17 Rate Respiratory Rate [Left Hip] Blood Pressure 95/34 O2 Sat by Pulse 96 96 98 Oximetry 07/28/18 07/28/18 07/28/18 04:28 04:31 04:41 Temperature Pulse Rate 78 77 81 Respiratory 15 18 23 Rate Respiratory Rate [Left Hip] Blood Pressure 95/34 O2 Sat by Pulse 93 96 Oximetry 07/28/18 07/28/18 07/28/18 04:42 04:51 05:00 Temperature 97.7 F Pulse Rate 83 82 Respiratory 11 L 17 Rate Respiratory Rate [Left Hip] Blood Pressure 95/34 95/34 O2 Sat by Pulse Oximetry 07/28/18 07/28/18 07/28/18 05:11 05:21 05:31 Temperature Pulse Rate 84 84 82 Respiratory 16 16 18 Rate Respiratory Rate [Left Hip] Blood Pressure 112/66 112/66 112/66 O2 Sat by Pulse Oximetry 07/28/18 07/28/18 07/28/18 05:41 05:51 06:00 Temperature Pulse Rate 83 83 84 Respiratory 10 L 16 17 Rate Respiratory Rate [Left Hip] Blood Pressure 112/66 112/66 101/69 O2 Sat by Pulse 95 100 100 Oximetry 07/28/18 07/28/18 07/28/18 06:11 06:21 06:31 Temperature Pulse Rate 84 85 86 Respiratory 17 16 17 Rate Respiratory Rate [Left Hip] Blood Pressure 101/69 101/69 101/69 O2 Sat by Pulse 99 98 98 Oximetry 07/28/18 06:41 Temperature Pulse Rate 85 Respiratory 12 Rate Respiratory Rate [Left Hip] Blood Pressure 101/69 O2 Sat by Pulse 100 Oximetry - Laboratory Findings CBC and BMP: 07/28/18 04:50 07/28/18 04:50 Abnormal Lab Findings: Abnormal Labs 07/27/18 07/27/18 07/27/18 13:13 13:13 13:13 RBC 3.43 L Hgb 9.4 L Hct 28.5 L MCH 27 L RDW 20.9 H Plt Count 677 H Lymph % (Auto) 10.1 L Lymph # 1.1 L Seg Neutrophils % 83.7 H Seg Neuts % (Manual) Lymphocytes % (Manual) Seg Neutrophils # 9.0 H Seg Neutrophils # Man Lymphocytes # (Manual) PT 15.3 H INR 1.14 H Thrombin Time 13.7 L Sodium Potassium 3.1 L Chloride 95.1 L Carbon Dioxide 20 L BUN 6 L Creatinine Glucose 172 H POC Glucose Calcium 6.8 L Magnesium Alkaline Phosphatase Total Creatine Kinase Total Protein Albumin Urine WBC (Auto) 07/27/18 07/27/18 07/27/18 13:13 13:35 13:53 RBC Hgb Hct MCH RDW Plt Count Lymph % (Auto) Lymph # Seg Neutrophils % Seg Neuts % (Manual) Lymphocytes % (Manual) Seg Neutrophils # Seg Neutrophils # Man Lymphocytes # (Manual) PT INR Thrombin Time Sodium Potassium Chloride Carbon Dioxide BUN Creatinine Glucose POC Glucose Calcium Magnesium 0.80 L* Alkaline Phosphatase 173 H Total Creatine Kinase 221 H Total Protein 6.2 L Albumin 2.6 L Urine WBC (Auto) > 182.0 H 07/27/18 07/27/18 07/28/18 17:18 22:36 04:50 RBC 2.77 L Hgb 7.6 L Hct 25.2 L MCH 27 L RDW 21.4 H Plt Count 604 H Lymph % (Auto) Lymph # Seg Neutrophils % Seg Neuts % (Manual) 88.0 H Lymphocytes % (Manual) 7.0 L Seg Neutrophils # Seg Neutrophils # Man 8.8 H Lymphocytes # (Manual) 0.7 L PT INR Thrombin Time Sodium Potassium Chloride Carbon Dioxide BUN Creatinine Glucose POC Glucose 180 H 195 H Calcium Magnesium Alkaline Phosphatase Total Creatine Kinase Total Protein Albumin Urine WBC (Auto) 07/28/18 04:50 RBC Hgb Hct MCH RDW Plt Count Lymph % (Auto) Lymph # Seg Neutrophils % Seg Neuts % (Manual) Lymphocytes % (Manual) Seg Neutrophils # Seg Neutrophils # Man Lymphocytes # (Manual) PT INR Thrombin Time Sodium 133 L Potassium 3.4 L Chloride Carbon Dioxide 19 L BUN Creatinine 0.5 L Glucose 129 H POC Glucose Calcium 6.5 L Magnesium Alkaline Phosphatase 134 H Total Creatine Kinase Total Protein 5.5 L Albumin 1.8 L Urine WBC (Auto)
[2018-07-28] MEDS: BROVANA NEBU IH SCH ×2 (09:39→20:45)
[2018-07-28] MEDS: PULMICORT IH SCH ×2 (09:39→20:45)
[2018-07-28] MEDS: THERAGRAN Tab PO SCH (09:42)
[2018-07-28] MEDS: K-DUR PO SCH (09:42)
[2018-07-28] MEDS: celeXA PO SCH (09:42)
[2018-07-28] MEDS: HumuLIN R SUB-Q SCH ×4 (09:42→22:04)
[2018-07-28] MEDS: NEURONTIN PO SCH ×2 (09:42→22:02)
[2018-07-28] MEDS: CYMBALTA PO SCH (09:43)
[2018-07-28] MEDS: PROTONIX IV SCH ×2 (09:48→22:01)
--- NOTE | 2018-07-28 09:51 | Progress Note ---
Assessment and Plan Assessment and plan: Acute ischemic stroke Not given Aspirin because GI bleed Obtain MRI Brain Encephalopathy Improving GI bleed Serial H/H GI following UTI Cont Ceftriaxone iv Hyperlipidemia Full code status History Interval history: Slurred speech Right sided weakness Hospitalist Physical - Physical exam Narrative exam: Gen: Not in acute distress, lying in bed, HEENT: Normocephalic, atraumatic Neck: supple, no JVD Heart: S1 and S2 reg, no murmurs, rubs or gallop Lungs: Clear, no crackles, no wheeze Abd: soft, non tender, non distended, normal BS Ext: No edema, no clubbing, no cyanosis, Neuro: Awake,alert, oriented x 3, right sided weakness, slurred speech Psych:Normal mood - Constitutional Vitals: Temp Pulse Resp BP Pulse Ox 97.7 F 85 12 101/69 100 07/28/18 04:42 07/28/18 06:41 07/28/18 06:41 07/28/18 06:41 07/28/18 06:41 Results - Labs CBC & Chem 7: 07/28/18 15:08 07/28/18 04:50 Labs: Laboratory Last Values WBC 10.0 K/mm3 (4.5-11.0) 07/28/18 04:50 RBC 2.77 M/mm3 (3.65-5.03) L 07/28/18 04:50 Hgb 7.6 gm/dl (10.1-14.3) L 07/28/18 04:50 Hct 25.2 % (30.3-42.9) L 07/28/18 04:50 MCV 91 fl (79-97) 07/28/18 04:50 MCH 27 pg (28-32) L 07/28/18 04:50 MCHC 30 % (30-34) 07/28/18 04:50 RDW 21.4 % (13.2-15.2) H 07/28/18 04:50 Plt Count 604 K/mm3 (140-440) H 07/28/18 04:50 Lymph % (Auto) Horologist 07/28/18 04:50 Floyd % (Auto) Horologist 07/28/18 04:50 Eos % (Auto) Horologist 07/28/18 04:50 Baso % (Auto) Horologist 07/28/18 04:50 Lymph # Horologist 07/28/18 04:50 Floyd # Horologist 07/28/18 04:50 Eos # Horologist 07/28/18 04:50 Baso # Horologist 07/28/18 04:50 Add Manual Diff Complete 07/28/18 04:50 Total Counted 100 07/28/18 04:50 Seg Neutrophils % Horologist 07/28/18 04:50 Seg Neuts % (Manual) 88.0 % (40.0-70.0) H 07/28/18 04:50 0 % 07/28/18 04:50 7.0 % (13.4-35.0) L 07/28/18 04:50 Reactive Lymphs % (Man) 0 % 07/28/18 04:50 5.0 % (0.0-7.3) 07/28/18 04:50 0 % (0.0-4.3) 07/28/18 04:50 0 % (0.0-1.8) 07/28/18 04:50 0 % 07/28/18 04:50 0 % 07/28/18 04:50 0 % 07/28/18 04:50 0 % 07/28/18 04:50 Nucleated RBC % Not Reportable 07/28/18 04:50 Seg Neutrophils # Horologist 07/28/18 04:50 Seg Neutrophils # Man 8.8 K/mm3 (1.8-7.7) H 07/28/18 04:50 Band Neutrophils # 0.0 K/mm3 07/28/18 04:50 0.7 K/mm3 (1.2-5.4) L 07/28/18 04:50 Abs React Lymphs (Man) 0.0 K/mm3 07/28/18 04:50 0.5 K/mm3 (0.0-0.8) 07/28/18 04:50 0.0 K/mm3 (0.0-0.4) 07/28/18 04:50 0.0 K/mm3 (0.0-0.1) 07/28/18 04:50 0.0 K/mm3 07/28/18 04:50 0.0 K/mm3 07/28/18 04:50 0.0 K/mm3 07/28/18 04:50 Blast Cells # 0.0 K/mm3 07/28/18 04:50 WBC Morphology Not Reportable 07/28/18 04:50 Hypersegmented Neuts Not Reportable 07/28/18 04:50 Hyposegmented Neuts Not Reportable 07/28/18 04:50 Hypogranular Neuts Not Reportable 07/28/18 04:50 Not Reportable 07/28/18 04:50 Not Reportable 07/28/18 04:50 Not Reportable 07/28/18 04:50 Not Reportable 07/28/18 04:50 Not Reportable 07/28/18 04:50 Not Reportable 07/28/18 04:50 Consistent w auto 07/28/18 04:50 Not Reportable 07/28/18 04:50 Plt Clumps, EDTA Not Reportable 07/28/18 04:50 Not Reportable 07/28/18 04:50 Not Reportable 07/28/18 04:50 Not Reportable 07/28/18 04:50 Plt Morphology Comment Not Reportable 07/28/18 04:50 RBC Morphology Not Reportable 07/28/18 04:50 Dimorphic RBCs Not Reportable 07/28/18 04:50 Not Reportable 07/28/18 04:50 Not Reportable 07/28/18 04:50 Not Reportable 07/28/18 04:50 1+ 07/28/18 04:50 Not Reportable 07/28/18 04:50 Not Reportable 07/28/18 04:50 Not Reportable 07/28/18 04:50 Not Reportable 07/28/18 04:50 Not Reportable 07/28/18 04:50 Not Reportable 07/28/18 04:50 Not Reportable 07/28/18 04:50 Not Reportable 07/28/18 04:50 Not Reportable 07/28/18 04:50 Not Reportable 07/28/18 04:50 Not Reportable 07/28/18 04:50 Not Reportable 07/28/18 04:50 Not Reportable 07/28/18 04:50 Not Reportable 07/28/18 04:50 Not Reportable 07/28/18 04:50 Acanthocytes (Spur) Not Reportable 07/28/18 04:50 Rouleaux Not Reportable 07/28/18 04:50 Not Reportable 07/28/18 04:50 Not Reportable 07/28/18 04:50 Not Reportable 07/28/18 04:50 Not Reportable 07/28/18 04:50 Hem Pathologist Commnt No 07/28/18 04:50 PT 15.3 Sec. (12.2-14.9) H 07/27/18 13:13 INR 1.14 (0.87-1.13) H 07/27/18 13:13 APTT 26.8 Sec. (24.2-36.6) 07/27/18 13:13 13.7 Sec. (15.1-19.6) L 07/27/18 13:13 Sodium 133 mmol/L (137-145) L 07/28/18 04:50 Potassium 3.4 mmol/L (3.6-5.0) L 07/28/18 04:50 Chloride 100.8 mmol/L (98-107) 07/28/18 04:50 Carbon Dioxide 19 mmol/L (22-30) L 07/28/18 04:50 17 mmol/L 07/28/18 04:50 BUN 7 mg/dL (7-17) 07/28/18 04:50 0.5 mg/dL (0.7-1.2) L 07/28/18 04:50 Estimated GFR > 60 ml/min 07/28/18 04:50 14 % 07/28/18 04:50 Glucose 129 mg/dL (65-100) H 07/28/18 04:50 POC Glucose 151 (70-105) H 07/28/18 08:33 Calcium 6.5 mg/dL (8.4-10.2) L 07/28/18 04:50 Magnesium 1.40 mg/dL (1.7-2.3) L 07/28/18 04:50 0.20 mg/dL (0.1-1.2) 07/28/18 04:50 < 0.2 mg/dL (0-0.2) 07/27/18 13:53 0.0 mg/dL 07/27/18 13:53 AST 15 units/L (5-40) 07/28/18 04:50 ALT 10 units/L (7-56) 07/28/18 04:50 134 units/L (35-129) H 07/28/18 04:50 221 units/L (30-135) H 07/27/18 13:13 < 0.010 ng/mL (0.00-0.029) 07/27/18 13:13 5.5 g/dL (6.3-8.2) L 07/28/18 04:50 1.8 g/dL (3.9-5) L 07/28/18 04:50 0.5 % 07/28/18 04:50 TSH 1.050 mlU/mL (0.270-4.200) 07/27/18 13:13 Yellow (Yellow) 07/27/18 13:35 Cloudy (Clear) 07/27/18 13:35 6.0 (5.0-7.0) 07/27/18 13:35 Ur Specific [place] 1.006 (1.003-1.030) 07/27/18 13:35 <15 mg/dl mg/dL (Negative) 07/27/18 13:35 Neg mg/dL (Negative) 07/27/18 13:35 Neg mg/dL (Negative) 07/27/18 13:35 Sm (Negative) 07/27/18 13:35 Pos (Negative) 07/27/18 13:35 Neg (Negative) 07/27/18 13:35 < 2.0 mg/dL (<2.0) 07/27/18 13:35 Ur Leukocyte Esterase Lg (Negative) 07/27/18 13:35 > 182.0 /HPF (0.0-6.0) H 07/27/18 13:35 23.0 /HPF (0.0-6.0) 07/27/18 13:35 4+ /HPF (Negative) 07/27/18 13:35 3+ /HPF 07/27/18 13:35 Blood Type A NEGATIVE 07/27/18 14:57 Antibody Screen Negative 07/27/18 14:57 Active Medications - Current Medications Current Medications: Generic Name Dose Route Start Last Admin Trade Name Freq PRN Reason Stop Dose Admin Albuterol 2.5 mg 07/27/18 14:34 Proventil IH Q3HRT PRN Shortness Of Breath Arformoterol Tartrate 15 mcg 07/28/18 08:00 07/28/18 09:39 Brovana Nebu IH 15 mcg Q12HRT CHRISTOPHER Administration Atorvastatin Calcium 40 mg 07/28/18 10:00 07/28/18 09:42 Lipitor PO 40 mg DAILY CHRISTOPHER Administration Budesonide 0.5 mg 07/28/18 08:00 07/28/18 09:39 Pulmicort IH 0.5 mg Q12HRT CHRISTOPHER Administration Citalopram Hydrobromide 20 mg 07/28/18 10:00 07/28/18 09:42 Celexa PO 20 mg DAILY CHRISTOPHER Administration Dextrose 50 ml 07/27/18 21:05 D50w (25gm) Syringe IV PRN PRN Hypoglycemia Duloxetine HCl 60 mg 07/28/18 10:00 07/28/18 09:43 Cymbalta PO 60 mg DAILY CHRISTOPHER Administration Gabapentin 900 mg 07/27/18 23:45 07/28/18 09:42 Neurontin PO 900 mg BID CHRISTOPHER Administration Ceftriaxone Sodium 1 gm in 50 mls @ 100 mls/hr 07/27/18 14:38 07/27/18 15:10 Rocephin/Ns 1 Gm/50 Ml IV 100 mls/hr Q24HR CHRISTOPHER Administration Protocol Magnesium Sulfate 4 gm in 100 mls @ 25 mls/hr 07/28/18 09:37 Magnesium Sulfate 4gm/100ml IV 07/28/18 13:36 ONCE ONE Insulin Human Regular 0 units 07/27/18 22:00 07/28/18 09:42 Humulin R SUB-Q Not Given ACHS CHRISTOPHER Protocol Magnesium Oxide 400 mg 07/28/18 10:00 07/28/18 09:42 Mag-Ox PO 400 mg DAILY CHRISTOPHER Administration Multivitamins 1 each 07/28/18 10:00 07/28/18 09:42 Theragran Tab PO 1 each DAILY CHRISTOPHER Administration Pantoprazole Sodium 40 mg 07/27/18 22:00 07/28/18 09:48 Protonix IV 40 mg BID CHRISTOPHER Administration Potassium Chloride 10 meq 07/28/18 10:00 07/28/18 09:42 K-Dur PO 10 meq DAILY CHRISTOPHER Administration Propranolol HCl 10 mg 07/28/18 08:00 Inderal PO TID CHRISTOPHER Sodium Chloride 10 ml 07/27/18 22:00 07/27/18 22:23 Sodium Chloride Flush Syringe 10 Ml IV 10 ml BID CHRISTOPHER Administration Sodium Chloride 10 ml 07/27/18 14:34 Sodium Chloride Flush Syringe 10 Ml IV PRN PRN LINE FLUSH Venlafaxine HCl 75 mg 07/28/18 10:00 Effexor PO BID CHRISTOPHER Venlafaxine HCl 25 mg 07/28/18 10:00 Effexor PO BID CHRISTOPHER
[2018-07-28] MEDS ORDERED: MAG-OX PO SCH (10:00)
[2018-07-28] MEDS ORDERED: NON-FORMULARY (Fluticasone/Salmeterol [Advair Diskus 250-50 Mcg] 1 PUFF) IH SCH (10:00)
[2018-07-28] MEDS ORDERED: NON-FORMULARY (Omeprazole [Omeprazole] 40 MG) PO SCH (10:00)
[2018-07-28] MEDS ORDERED: MAGNESIUM SULFATE 4GM/100ML 4 GM/100 ML BAG IV ONE (10:00)
[2018-07-28] MEDS: ROCEPHIN/NS 1 GM/50 ML 1 GM/50 ML BAG IV SCH (11:06)
[2018-07-28] MEDS: EFFEXOR PO SCH ×4 (11:09→22:02)
[2018-07-28] MEDS: INDERAL PO SCH ×3 (11:09→20:13)
[2018-07-28] MEDS: SODIUM CHLORIDE FLUSH SYRINGE 10 ML IV SCH ×2 (11:10→22:01)
--- NOTE | 2018-07-28 11:47 | Gastroenterology Progress Note ---
Assessment and Plan 1.GI bleed? 2.anemia-chronic -H/H 7.6/25.1-trended down -continue to monitor H/H and transfuse as needed -no active signs of bleeding (stool brown but heme + per ER provider exam) -Last EGD/enteroscopy 06/[address] 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 No active signs of bleeding overnight or this am. Objective - Constitutional Vitals: Temp Pulse Resp BP Pulse Ox 97.7 F 91 H 20 101/69 99 07/28/18 04:42 07/28/18 10:02 07/28/18 10:02 07/28/18 06:41 07/28/18 09:56 General appearance: no acute distress - Respiratory Respiratory: bilateral: CTA (anterior) - Cardiovascular Rhythm: regular - Gastrointestinal General gastrointestinal: Present: soft, non-tender, non-distended, normal bowel sounds - Labs CBC & Chem 7: 07/28/18 04:50 07/28/18 04:50 Labs: Laboratory Results - last 24 hr 07/27/18 07/27/18 07/27/18 13:13 13:13 13:13 WBC 10.7 RBC 3.43 L Hgb 9.4 L Hct 28.5 L MCV 83 MCH 27 L MCHC 33 RDW 20.9 H Plt Count 677 H Lymph % (Auto) 10.1 L [place] % (Auto) 4.7 Eos % (Auto) 1.0 Baso % (Auto) 0.5 Lymph # 1.1 L [place] # 0.5 Eos # 0.1 Baso # 0.1 Add Manual Diff Total Counted Seg Neutrophils % 83.7 H Seg Neuts % (Manual) Band Neutrophils % Lymphocytes % (Manual) Reactive Lymphs % (Man) Monocytes % (Manual) Eosinophils % (Manual) Basophils % (Manual) Metamyelocytes % Myelocytes % Promyelocytes % Blast Cells % Nucleated RBC % Seg Neutrophils # 9.0 H Seg Neutrophils # Man Band Neutrophils # Lymphocytes # (Manual) Abs React Lymphs (Man) Monocytes # (Manual) Eosinophils # (Manual) Basophils # (Manual) Metamyelocytes # Myelocytes # Promyelocytes # Blast Cells # WBC Morphology Hypersegmented Neuts Hyposegmented Neuts Hypogranular Neuts Smudge Cells Toxic Granulation Toxic Vacuolation Dohle Bodies Pelger-Huet Anomaly Mery Rods Platelet Estimate Clumped Platelets Plt Clumps, EDTA Large Platelets Giant Platelets Platelet Satelliting Plt Morphology Comment RBC Morphology Dimorphic RBCs Polychromasia Hypochromasia Poikilocytosis Anisocytosis Microcytosis Macrocytosis Spherocytes Pappenheimer Bodies Sickle Cells Target Cells Tear Drop Cells Ovalocytes Helmet Cells [place] Bodies [place] Rings [place] Cells Bite Cells Crenated Cell Elliptocytes Acanthocytes (Spur) Rouleaux Hemoglobin C Crystals Schistocytes Malaria parasites Jonah Bodies Hem Pathologist Commnt PT 15.3 H INR 1.14 H APTT 26.8 Thrombin Time 13.7 L Sodium 138 Potassium 3.1 L Chloride 95.1 L Carbon Dioxide 20 L Anion Gap 26 BUN 6 L Creatinine 0.7 Estimated GFR > 60 BUN/Creatinine Ratio 9 Glucose 172 H POC Glucose Calcium 6.8 L Magnesium Total Bilirubin Direct Bilirubin Indirect Bilirubin AST ALT Alkaline Phosphatase Total Creatine Kinase Troponin T < 0.010 Total Protein Albumin Albumin/Globulin Ratio TSH Urine Color Urine Turbidity Urine pH Ur Specific [place] Urine Protein Urine Glucose (UA) Urine Ketones Urine Blood Urine Nitrite Urine Bilirubin Urine Urobilinogen Ur Leukocyte Esterase Urine WBC (Auto) Urine RBC (Auto) Urine Bacteria (Auto) Urine WBC Clumps Blood Type Antibody Screen 07/27/18 07/27/18 07/27/18 13:13 13:13 13:35 WBC RBC Hgb Hct MCV MCH MCHC RDW Plt Count Lymph % (Auto) [place] % (Auto) Eos % (Auto) Baso % (Auto) Lymph # [place] # Eos # Baso # Add Manual Diff Total Counted Seg Neutrophils % Seg Neuts % (Manual) Band Neutrophils % Lymphocytes % (Manual) Reactive Lymphs % (Man) Monocytes % (Manual) Eosinophils % (Manual) Basophils % (Manual) Metamyelocytes % Myelocytes % Promyelocytes % Blast Cells % Nucleated RBC % Seg Neutrophils # Seg Neutrophils # Man Band Neutrophils # Lymphocytes # (Manual) Abs React Lymphs (Man) Monocytes # (Manual) Eosinophils # (Manual) Basophils # (Manual) Metamyelocytes # Myelocytes # Promyelocytes # Blast Cells # WBC Morphology Hypersegmented Neuts Hyposegmented Neuts Hypogranular Neuts Smudge Cells Toxic Granulation Toxic Vacuolation Dohle Bodies Pelger-Huet Anomaly Mery Rods Platelet Estimate Clumped Platelets Plt Clumps, EDTA Large Platelets Giant Platelets Platelet Satelliting Plt Morphology Comment RBC Morphology Dimorphic RBCs Polychromasia Hypochromasia Poikilocytosis Anisocytosis Microcytosis Macrocytosis Spherocytes Pappenheimer Bodies Sickle Cells Target Cells Tear Drop Cells Ovalocytes Helmet Cells [place] Bodies [place] Rings [place] Cells Bite Cells Crenated Cell Elliptocytes Acanthocytes (Spur) Rouleaux Hemoglobin C Crystals Schistocytes Malaria parasites Jonah Bodies Hem Pathologist Commnt PT INR APTT Thrombin Time Sodium Potassium Chloride Carbon Dioxide Anion Gap BUN Creatinine Estimated GFR BUN/Creatinine Ratio Glucose POC Glucose Calcium Magnesium 0.80 L* Total Bilirubin Direct Bilirubin Indirect Bilirubin AST ALT Alkaline Phosphatase Total Creatine Kinase 221 H Troponin T Total Protein Albumin Albumin/Globulin Ratio TSH 1.050 Urine Color Yellow Urine Turbidity Cloudy Urine pH 6.0 Ur Specific [place] 1.006 Urine Protein <15 mg/dl Urine Glucose (UA) Neg Urine Ketones Neg Urine Blood Sm Urine Nitrite Pos Urine Bilirubin Neg Urine Urobilinogen < 2.0 Ur Leukocyte Esterase Lg Urine WBC (Auto) > 182.0 H Urine RBC (Auto) 23.0 Urine Bacteria (Auto) 4+ Urine WBC Clumps 3+ Blood Type Antibody Screen 07/27/18 07/27/18 07/27/18 13:53 14:57 17:18 WBC RBC Hgb Hct MCV MCH MCHC RDW Plt Count Lymph % (Auto) [place] % (Auto) Eos % (Auto) Baso % (Auto) Lymph # [place] # Eos # Baso # Add Manual Diff Total Counted Seg Neutrophils % Seg Neuts % (Manual) Band Neutrophils % Lymphocytes % (Manual) Reactive Lymphs % (Man) Monocytes % (Manual) Eosinophils % (Manual) Basophils % (Manual) Metamyelocytes % Myelocytes % Promyelocytes % Blast Cells % Nucleated RBC % Seg Neutrophils # Seg Neutrophils # Man Band Neutrophils # Lymphocytes # (Manual) Abs React Lymphs (Man) Monocytes # (Manual) Eosinophils # (Manual) Basophils # (Manual) Metamyelocytes # Myelocytes # Promyelocytes # Blast Cells # WBC Morphology Hypersegmented Neuts Hyposegmented Neuts Hypogranular Neuts Smudge Cells Toxic Granulation Toxic Vacuolation Dohle Bodies Pelger-Huet Anomaly Mery Rods Platelet Estimate Clumped Platelets Plt Clumps, EDTA Large Platelets Giant Platelets Platelet Satelliting Plt Morphology Comment RBC Morphology Dimorphic RBCs Polychromasia Hypochromasia Poikilocytosis Anisocytosis Microcytosis Macrocytosis Spherocytes Pappenheimer Bodies Sickle Cells Target Cells Tear Drop Cells Ovalocytes Helmet Cells [place] Bodies [place] Rings [place] Cells Bite Cells Crenated Cell Elliptocytes Acanthocytes (Spur) Rouleaux Hemoglobin C Crystals Schistocytes Malaria parasites Jonah Bodies Hem Pathologist Commnt PT INR APTT Thrombin Time Sodium Potassium Chloride Carbon Dioxide Anion Gap BUN Creatinine Estimated GFR BUN/Creatinine Ratio Glucose POC Glucose 180 H Calcium Magnesium Total Bilirubin 0.20 Direct Bilirubin < 0.2 Indirect Bilirubin 0.0 AST 21 ALT 13 Alkaline Phosphatase 173 H Total Creatine Kinase Troponin T Total Protein 6.2 L Albumin 2.6 L Albumin/Globulin Ratio 0.7 TSH Urine Color Urine Turbidity Urine pH Ur Specific [place] Urine Protein Urine Glucose (UA) Urine Ketones Urine Blood Urine Nitrite Urine Bilirubin Urine Urobilinogen Ur Leukocyte Esterase Urine WBC (Auto) Urine RBC (Auto) Urine Bacteria (Auto) Urine WBC Clumps Blood Type A NEGATIVE Antibody Screen Negative 07/27/18 07/28/18 07/28/18 22:36 04:50 04:50 WBC 10.0 RBC 2.77 L Hgb 7.6 L Hct 25.2 L MCV 91 MCH 27 L MCHC 30 RDW 21.4 H Plt Count 604 H Lymph % (Auto) Vp Lab [place] % (Auto) Vp Lab Eos % (Auto) Vp Lab Baso % (Auto) Vp Lab Lymph # Vp Lab [place] # Vp Lab Eos # Vp Lab Baso # Vp Lab Add Manual Diff Complete Total Counted 100 Seg Neutrophils % Vp Lab Seg Neuts % (Manual) 88.0 H Band Neutrophils % 0 Lymphocytes % (Manual) 7.0 L Reactive Lymphs % (Man) 0 Monocytes % (Manual) 5.0 Eosinophils % (Manual) 0 Basophils % (Manual) 0 Metamyelocytes % 0 Myelocytes % 0 Promyelocytes % 0 Blast Cells % 0 Nucleated RBC % Not Reportable Seg Neutrophils # Vp Lab Seg Neutrophils # Man 8.8 H Band Neutrophils # 0.0 Lymphocytes # (Manual) 0.7 L Abs React Lymphs (Man) 0.0 Monocytes # (Manual) 0.5 Eosinophils # (Manual) 0.0 Basophils # (Manual) 0.0 Metamyelocytes # 0.0 Myelocytes # 0.0 Promyelocytes # 0.0 Blast Cells # 0.0 WBC Morphology Not Reportable Hypersegmented Neuts Not Reportable Hyposegmented Neuts Not Reportable Hypogranular Neuts Not Reportable Smudge Cells Not Reportable Toxic Granulation Not Reportable Toxic Vacuolation Not Reportable Dohle Bodies Not Reportable Pelger-Huet Anomaly Not Reportable Mery Rods Not Reportable Platelet Estimate Consistent w auto Clumped Platelets Not Reportable Plt Clumps, EDTA Not Reportable Large Platelets Not Reportable Giant Platelets Not Reportable Platelet Satelliting Not Reportable Plt Morphology Comment Not Reportable RBC Morphology Not Reportable Dimorphic RBCs Not Reportable Polychromasia Not Reportable Hypochromasia Not Reportable Poikilocytosis Not Reportable Anisocytosis 1+ Microcytosis Not Reportable Macrocytosis Not Reportable Spherocytes Not Reportable Pappenheimer Bodies Not Reportable Sickle Cells Not Reportable Target Cells Not Reportable Tear Drop Cells Not Reportable Ovalocytes Not Reportable Helmet Cells Not Reportable [place] Bodies Not Reportable [place] Rings Not Reportable [place] Cells Not Reportable Bite Cells Not Reportable Crenated Cell Not Reportable Elliptocytes Not Reportable Acanthocytes (Spur) Not Reportable Rouleaux Not Reportable Hemoglobin C Crystals Not Reportable Schistocytes Not Reportable Malaria parasites Not Reportable Jonah Bodies Not Reportable Hem Pathologist Commnt No PT INR APTT Thrombin Time Sodium 133 L Potassium 3.4 L Chloride 100.8 Carbon Dioxide 19 L Anion Gap 17 BUN 7 Creatinine 0.5 L Estimated GFR > 60 BUN/Creatinine Ratio 14 Glucose 129 H POC Glucose 195 H Calcium 6.5 L Magnesium Total Bilirubin 0.20 Direct Bilirubin Indirect Bilirubin AST 15 ALT 10 Alkaline Phosphatase 134 H Total Creatine Kinase Troponin T Total Protein 5.5 L Albumin 1.8 L Albumin/Globulin Ratio 0.5 TSH Urine Color Urine Turbidity Urine pH Ur Specific [place] Urine Protein Urine Glucose (UA) Urine Ketones Urine Blood Urine Nitrite Urine Bilirubin Urine Urobilinogen Ur Leukocyte Esterase Urine WBC (Auto) Urine RBC (Auto) Urine Bacteria (Auto) Urine WBC Clumps Blood Type Antibody Screen 07/28/18 07/28/18 07/28/18 04:50 08:33 11:45 WBC RBC Hgb Hct MCV MCH MCHC RDW Plt Count Lymph % (Auto) [place] % (Auto) Eos % (Auto) Baso % (Auto) Lymph # [place] # Eos # Baso # Add Manual Diff Total Counted Seg Neutrophils % Seg Neuts % (Manual) Band Neutrophils % Lymphocytes % (Manual) Reactive Lymphs % (Man) Monocytes % (Manual) Eosinophils % (Manual) Basophils % (Manual) Metamyelocytes % Myelocytes % Promyelocytes % Blast Cells % Nucleated RBC % Seg Neutrophils # Seg Neutrophils # Man Band Neutrophils # Lymphocytes # (Manual) Abs React Lymphs (Man) Monocytes # (Manual) Eosinophils # (Manual) Basophils # (Manual) Metamyelocytes # Myelocytes # Promyelocytes # Blast Cells # WBC Morphology Hypersegmented Neuts Hyposegmented Neuts Hypogranular Neuts Smudge Cells Toxic Granulation Toxic Vacuolation Dohle Bodies Pelger-Huet Anomaly Mery Rods Platelet Estimate Clumped Platelets Plt Clumps, EDTA Large Platelets Giant Platelets Platelet Satelliting Plt Morphology Comment RBC Morphology Dimorphic RBCs Polychromasia Hypochromasia Poikilocytosis Anisocytosis Microcytosis Macrocytosis Spherocytes Pappenheimer Bodies Sickle Cells Target Cells Tear Drop Cells Ovalocytes Helmet Cells [place] Bodies [place] Rings [place] Cells Bite Cells Crenated Cell Elliptocytes Acanthocytes (Spur) Rouleaux Hemoglobin C Crystals Schistocytes Malaria parasites Jonah Bodies Hem Pathologist Commnt PT INR APTT Thrombin Time Sodium Potassium Chloride Carbon Dioxide Anion Gap BUN Creatinine Estimated GFR BUN/Creatinine Ratio Glucose POC Glucose 151 H 227 H Calcium Magnesium 1.40 L Total Bilirubin Direct Bilirubin Indirect Bilirubin AST ALT Alkaline Phosphatase Total Creatine Kinase Troponin T Total Protein Albumin Albumin/Globulin Ratio TSH Urine Color Urine Turbidity Urine pH Ur Specific [place] Urine Protein Urine Glucose (UA) Urine Ketones Urine Blood Urine Nitrite Urine Bilirubin Urine Urobilinogen Ur Leukocyte Esterase Urine WBC (Auto) Urine RBC (Auto) Urine Bacteria (Auto) Urine WBC Clumps Blood Type Antibody Screen
[2018-07-28 15:32] LABS: Hemoglobin 7.4 gm/dl (10.1-14.3)
[2018-07-29 06:19] LABS: Hematocrit 24.5 % (30.3-42.9); Mean Corpuscular HGB Conc 33 % (30-34); Mean Corpuscular Volume 84 fl (79-97); Platelet Count 630 K/mm3 (140-440); Red Blood Count 2.92 M/mm3 (3.65-5.03)
[2018-07-29 06:45] LABS: BUN/Creatinine Ratio 18; Blood Urea Nitrogen 7 mg/dL (7-17); Hemolysis Index 7
[2018-07-29] MEDS: HumuLIN R SUB-Q SCH ×4 (07:30→22:00)
[2018-07-29] MEDS: PULMICORT IH SCH ×2 (08:55→19:59)
[2018-07-29] MEDS: BROVANA NEBU IH SCH ×2 (08:55→20:00)
[2018-07-29] MEDS: NEURONTIN PO SCH ×2 (09:23→21:47)
[2018-07-29] MEDS: INDERAL PO SCH ×3 (09:23→21:48)
[2018-07-29] MEDS: PROTONIX PO SCH ×2 (09:23→21:47)
[2018-07-29] MEDS: K-DUR PO SCH (09:23)
[2018-07-29] MEDS: EFFEXOR PO SCH ×4 (09:23→21:48)
[2018-07-29] MEDS: CYMBALTA PO SCH (09:23)
[2018-07-29] MEDS: THERAGRAN Tab PO SCH (09:24)
[2018-07-29] MEDS: ROCEPHIN/NS 1 GM/50 ML 1 GM/50 ML BAG IV SCH (09:24)
[2018-07-29] MEDS: celeXA PO SCH (09:24)
[2018-07-29] MEDS: SODIUM CHLORIDE FLUSH SYRINGE 10 ML IV SCH ×2 (09:25→21:57)
[2018-07-29] MEDS ORDERED: KPHOS 30 MMOL in NACL 0.9% 500 ML 500 ML IV ONE (09:30)
[2018-07-29] MEDS ORDERED: MAGNESIUM SULFATE 4GM/100ML 4 GM/100 ML BAG IV ONE (10:00)
--- NOTE | 2018-07-29 11:35 | Progress Note ---
Assessment and Plan Assessment and plan: Acute ischemic stroke Not given Aspirin because GI bleed Cannot do MRI because of hardware Will order CT head with contrast Encephalopathy Improving Now fully awake,alert GI bleed Serial H/H GI following UTI Cont Ceftriaxone iv Hyperlipidemia Hypomagnesemia Replace and recheck Hypophosphatemia Replace and recheck Hypokalemia Full code status History Interval history: Slurred speech Right sided weakness Hospitalist Physical - Physical exam Narrative exam: Gen: Not in acute distress, lying in bed, HEENT: Normocephalic, atraumatic Neck: supple, no JVD Heart: S1 and S2 reg, no murmurs, rubs or gallop Lungs: Clear, no crackles, no wheeze Abd: soft, non tender, non distended, normal BS Ext: No edema, no clubbing, no cyanosis, Neuro: Awake,alert, oriented x 3, right sided weakness, slurred speech Psych:Normal mood - Constitutional Vitals: Temp Pulse Resp BP Pulse Ox 98.1 F 78 19 122/53 97 07/29/18 08:00 07/29/18 10:00 07/29/18 10:00 07/29/18 10:10 07/29/18 10:10 Results - Labs CBC & Chem 7: 07/29/18 06:03 07/29/18 06:03 Labs: Laboratory Last Values WBC 11.2 K/mm3 (4.5-11.0) H 07/29/18 06:03 RBC 2.92 M/mm3 (3.65-5.03) L 07/29/18 06:03 Hgb 8.0 gm/dl (10.1-14.3) L 07/29/18 06:03 Hct 24.5 % (30.3-42.9) L 07/29/18 06:03 MCV 84 fl (79-97) 07/29/18 06:03 MCH 27 pg (28-32) L 07/29/18 06:03 MCHC 33 % (30-34) 07/29/18 06:03 RDW 21.0 % (13.2-15.2) H 07/29/18 06:03 Plt Count 630 K/mm3 (140-440) H 07/29/18 06:03 Lymph % (Auto) Property Clerk 07/28/18 04:50 [place] % (Auto) Property Clerk 07/28/18 04:50 Eos % (Auto) Property Clerk 07/28/18 04:50 Baso % (Auto) Property Clerk 07/28/18 04:50 Lymph # Property Clerk 07/28/18 04:50 [place] # Property Clerk 07/28/18 04:50 Eos # Property Clerk 07/28/18 04:50 Baso # Property Clerk 07/28/18 04:50 Add Manual Diff Complete 07/28/18 04:50 Total Counted 100 07/28/18 04:50 Seg Neutrophils % Property Clerk 07/28/18 04:50 Seg Neuts % (Manual) 88.0 % (40.0-70.0) H 07/28/18 04:50 0 % 07/28/18 04:50 7.0 % (13.4-35.0) L 07/28/18 04:50 Reactive Lymphs % (Man) 0 % 07/28/18 04:50 5.0 % (0.0-7.3) 07/28/18 04:50 0 % (0.0-4.3) 07/28/18 04:50 0 % (0.0-1.8) 07/28/18 04:50 0 % 07/28/18 04:50 0 % 07/28/18 04:50 0 % 07/28/18 04:50 0 % 07/28/18 04:50 Nucleated RBC % Not Reportable 07/28/18 04:50 Seg Neutrophils # Property Clerk 07/28/18 04:50 Seg Neutrophils # Man 8.8 K/mm3 (1.8-7.7) H 07/28/18 04:50 Band Neutrophils # 0.0 K/mm3 07/28/18 04:50 0.7 K/mm3 (1.2-5.4) L 07/28/18 04:50 Abs React Lymphs (Man) 0.0 K/mm3 07/28/18 04:50 0.5 K/mm3 (0.0-0.8) 07/28/18 04:50 0.0 K/mm3 (0.0-0.4) 07/28/18 04:50 0.0 K/mm3 (0.0-0.1) 07/28/18 04:50 0.0 K/mm3 07/28/18 04:50 0.0 K/mm3 07/28/18 04:50 0.0 K/mm3 07/28/18 04:50 Blast Cells # 0.0 K/mm3 07/28/18 04:50 WBC Morphology Not Reportable 07/28/18 04:50 Hypersegmented Neuts Not Reportable 07/28/18 04:50 Hyposegmented Neuts Not Reportable 07/28/18 04:50 Hypogranular Neuts Not Reportable 07/28/18 04:50 Not Reportable 07/28/18 04:50 Not Reportable 07/28/18 04:50 Not Reportable 07/28/18 04:50 Not Reportable 07/28/18 04:50 Not Reportable 07/28/18 04:50 Not Reportable 07/28/18 04:50 Consistent w auto 07/28/18 04:50 Not Reportable 07/28/18 04:50 Plt Clumps, EDTA Not Reportable 07/28/18 04:50 Not Reportable 07/28/18 04:50 Not Reportable 07/28/18 04:50 Not Reportable 07/28/18 04:50 Plt Morphology Comment Not Reportable 07/28/18 04:50 RBC Morphology Not Reportable 07/28/18 04:50 Dimorphic RBCs Not Reportable 07/28/18 04:50 Not Reportable 07/28/18 04:50 Not Reportable 07/28/18 04:50 Not Reportable 07/28/18 04:50 1+ 07/28/18 04:50 Not Reportable 07/28/18 04:50 Not Reportable 07/28/18 04:50 Not Reportable 07/28/18 04:50 Not Reportable 07/28/18 04:50 Not Reportable 07/28/18 04:50 Not Reportable 07/28/18 04:50 Not Reportable 07/28/18 04:50 Not Reportable 07/28/18 04:50 Not Reportable 07/28/18 04:50 Not Reportable 07/28/18 04:50 Not Reportable 07/28/18 04:50 Not Reportable 07/28/18 04:50 Not Reportable 07/28/18 04:50 Not Reportable 07/28/18 04:50 Not Reportable 07/28/18 04:50 Acanthocytes (Spur) Not Reportable 07/28/18 04:50 Rouleaux Not Reportable 07/28/18 04:50 Not Reportable 07/28/18 04:50 Not Reportable 07/28/18 04:50 Not Reportable 07/28/18 04:50 Not Reportable 07/28/18 04:50 Hem Pathologist Commnt No 07/28/18 04:50 PT 15.3 Sec. (12.2-14.9) H 07/27/18 13:13 INR 1.14 (0.87-1.13) H 07/27/18 13:13 APTT 26.8 Sec. (24.2-36.6) 07/27/18 13:13 13.7 Sec. (15.1-19.6) L 07/27/18 13:13 Sodium 135 mmol/L (137-145) L 07/29/18 06:03 Potassium 3.6 mmol/L (3.6-5.0) 07/29/18 06:03 Chloride 100.1 mmol/L (98-107) 07/29/18 06:03 Carbon Dioxide 22 mmol/L (22-30) 07/29/18 06:03 17 mmol/L 07/29/18 06:03 BUN 7 mg/dL (7-17) 07/29/18 06:03 0.4 mg/dL (0.7-1.2) L 07/29/18 06:03 Estimated GFR > 60 ml/min 07/29/18 06:03 18 % 07/29/18 06:03 Glucose 117 mg/dL (65-100) H 07/29/18 06:03 POC Glucose 121 (70-105) H 07/29/18 08:16 Calcium 7.0 mg/dL (8.4-10.2) L 07/29/18 06:03 Phosphorus 2.30 mg/dL (2.5-4.5) L 07/29/18 06:03 Magnesium 1.20 mg/dL (1.7-2.3) L 07/29/18 06:03 0.20 mg/dL (0.1-1.2) 07/28/18 04:50 < 0.2 mg/dL (0-0.2) 07/27/18 13:53 0.0 mg/dL 07/27/18 13:53 AST 15 units/L (5-40) 07/28/18 04:50 ALT 10 units/L (7-56) 07/28/18 04:50 134 units/L (35-129) H 07/28/18 04:50 221 units/L (30-135) H 07/27/18 13:13 < 0.010 ng/mL (0.00-0.029) 07/27/18 13:13 5.5 g/dL (6.3-8.2) L 07/28/18 04:50 1.8 g/dL (3.9-5) L 07/28/18 04:50 0.5 % 07/28/18 04:50 TSH 1.050 mlU/mL (0.270-4.200) 07/27/18 13:13 Yellow (Yellow) 07/27/18 13:35 Cloudy (Clear) 07/27/18 13:35 6.0 (5.0-7.0) 07/27/18 13:35 Ur Specific [place] 1.006 (1.003-1.030) 07/27/18 13:35 <15 mg/dl mg/dL (Negative) 07/27/18 13:35 Neg mg/dL (Negative) 07/27/18 13:35 Neg mg/dL (Negative) 07/27/18 13:35 Sm (Negative) 07/27/18 13:35 Pos (Negative) 07/27/18 13:35 Neg (Negative) 07/27/18 13:35 < 2.0 mg/dL (<2.0) 07/27/18 13:35 Ur Leukocyte Esterase Lg (Negative) 07/27/18 13:35 > 182.0 /HPF (0.0-6.0) H 07/27/18 13:35 23.0 /HPF (0.0-6.0) 07/27/18 13:35 4+ /HPF (Negative) 07/27/18 13:35 3+ /HPF 07/27/18 13:35 Blood Type A NEGATIVE 07/27/18 14:57 Antibody Screen Negative 07/27/18 14:57 Active Medications - Current Medications Current Medications: Generic Name Dose Route Start Last Admin Trade Name Freq PRN Reason Stop Dose Admin Albuterol 2.5 mg 07/27/18 14:34 Proventil IH Q3HRT PRN Shortness Of Breath Arformoterol Tartrate 15 mcg 07/28/18 08:00 07/29/18 08:55 Brovana Nebu IH 15 mcg Q12HRT CHRISTOPHER Administration Atorvastatin Calcium 40 mg 07/28/18 10:00 07/29/18 09:23 Lipitor PO 40 mg DAILY CHRISTOPHER Administration Budesonide 0.5 mg 07/28/18 08:00 07/29/18 08:55 Pulmicort IH 0.5 mg Q12HRT CHRISTOPHER Administration Citalopram Hydrobromide 20 mg 07/28/18 10:00 07/29/18 09:24 Celexa PO 20 mg DAILY CHRISTOPHER Administration Dextrose 50 ml 07/27/18 21:05 D50w (25gm) Syringe IV PRN PRN Hypoglycemia Duloxetine HCl 60 mg 07/28/18 10:00 07/29/18 09:23 Cymbalta PO 60 mg DAILY CHRISTOPHER Administration Gabapentin 900 mg 07/27/18 23:45 07/29/18 09:23 Neurontin PO 900 mg BID CHRISTOPHER Administration Ceftriaxone Sodium 1 gm in 50 mls @ 100 mls/hr 07/27/18 14:38 07/29/18 09:24 Rocephin/Ns 1 Gm/50 Ml IV 100 mls/hr Q24HR CHRISTOPHER Administration Protocol Potassium Phosphate 30 mmol/ 510 mls @ 85 mls/hr 07/29/18 09:30 07/29/18 10:27 Sodium Chloride IV 07/29/18 15:29 85 mls/hr ONCE ONE Administration Magnesium Sulfate 4 gm in 100 mls @ 25 mls/hr 07/29/18 10:00 07/29/18 10:28 Magnesium Sulfate 4gm/100ml IV 07/29/18 13:59 25 mls/hr ONCE ONE Administration Insulin Human Regular 0 units 07/27/18 22:00 07/29/18 07:30 Humulin R SUB-Q Not Given ACHS CHRISTOPHER Protocol Multivitamins 1 each 07/28/18 10:00 07/29/18 09:24 Theragran Tab PO 1 each DAILY CHRISTOPHER Administration Pantoprazole Sodium 40 mg 07/29/18 10:00 07/29/18 09:23 Protonix PO 40 mg BID CHRISTOPHER Administration Potassium Chloride 10 meq 07/28/18 10:00 07/29/18 09:23 K-Dur PO 10 meq DAILY CHRISTOPHER Administration Propranolol HCl 10 mg 07/28/18 08:00 07/29/18 09:23 Inderal PO 10 mg TID CHRISTOPHER Administration Sodium Chloride 10 ml 07/27/18 22:00 07/29/18 09:25 Sodium Chloride Flush Syringe 10 Ml IV 10 ml BID CHRISTOPHER Administration Sodium Chloride 10 ml 07/27/18 14:34 Sodium Chloride Flush Syringe 10 Ml IV PRN PRN LINE FLUSH Venlafaxine HCl 75 mg 07/28/18 10:00 07/29/18 09:23 Effexor PO 75 mg BID CHRISTOPHER Administration Venlafaxine HCl 25 mg 07/28/18 10:00 07/29/18 09:24 Effexor PO 25 mg BID CHRISTOPHER Administration
--- NOTE | 2018-07-29 11:36 | Gastroenterology Progress Note ---
Assessment and Plan 1.GI bleed? 2.anemia-chronic -H/H 8.0/24.5-trended up -continue to monitor H/H and transfuse as needed -no active signs of bleeding -Last EGD/enteroscopy 06/[address] Li revealed multiple small, benign- appearing ulcers in the third portion of the duodenum, small AVM or a tiny bleeding point from an ulcer ablated in the third portion of the duodenum, and mild minimal erosive gastritis -Last colonoscopy 2014 revealed polyps (TA) -etiology-patient has a hx of chronic CINDY 2/2 most likely angiodysplasia of GI tract -no plan for scope at this time unless overt bleeding develops -continue PPI and iron supplement -continue supportive care -recommend pill camera as outpatient -patient is okay to be d/c per GI standpoint on PPI/iron with f/u in clinic ~2 weeks -will sign off, please call if needed Subjective Date of service: 07/29/18 Principal diagnosis: anemia Interval history: No acute distress or GI complaints. No active signs of bleeding overnight or this am. Objective - Constitutional Vitals: Temp Pulse Resp BP Pulse Ox 98.1 F 78 19 122/53 97 07/29/18 08:00 07/29/18 10:00 07/29/18 10:00 07/29/18 10:10 07/29/18 10:10 General appearance: no acute distress - Respiratory Respiratory: bilateral: CTA - Cardiovascular Rhythm: regular - Gastrointestinal General gastrointestinal: Present: soft, non-tender, non-distended, normal bowel sounds - Labs CBC & Chem 7: 07/29/18 06:03 07/29/18 06:03 Labs: Laboratory Results - last 24 hr 07/28/18 07/28/18 07/28/18 11:45 15:08 16:11 WBC RBC Hgb 7.4 L Hct 23.0 L MCV MCH MCHC RDW Plt Count Sodium Potassium Chloride Carbon Dioxide Anion Gap BUN Creatinine Estimated GFR BUN/Creatinine Ratio Glucose POC Glucose 227 H 264 H Calcium Phosphorus Magnesium 07/28/18 07/29/18 07/29/18 21:37 06:03 06:03 WBC 11.2 H RBC 2.92 L Hgb 8.0 L Hct 24.5 L MCV 84 MCH 27 L MCHC 33 RDW 21.0 H Plt Count 630 H Sodium 135 L Potassium 3.6 Chloride 100.1 Carbon Dioxide 22 Anion Gap 17 BUN 7 Creatinine 0.4 L Estimated GFR > 60 BUN/Creatinine Ratio 18 Glucose 117 H POC Glucose 218 H Calcium 7.0 L Phosphorus 2.30 L Magnesium 1.20 L 07/29/18 08:16 WBC RBC Hgb Hct MCV MCH MCHC RDW Plt Count Sodium Potassium Chloride Carbon Dioxide Anion Gap BUN Creatinine Estimated GFR BUN/Creatinine Ratio Glucose POC Glucose 121 H Calcium Phosphorus Magnesium
--- NOTE | 2018-07-29 11:43 | Vascular Lab Report ---
PROCEDURE: VL CAROTID DUPLEX BILAT TECHNIQUE: Duplex Doppler ultrasound examination of the cervical arteries bilaterally. Technologist r eports technically difficult exam due to patient positioning. Note: Measurement of carotid stenosis is based on flow velocity values that correlate with the [place] Symptomatic Carotid Endarterectomy Trial (NASCET) based stenosis criteria using the internal carotid artery diameter as the denominator for stenosis calculation. HISTORY: stroke COMPARISONS: None FINDINGS: Right: Heavily calcified atherosclerotic plaque in the carotid bifurcation and proximal right ICA No evidence of significant velocity elevation of the right ICA and CCA, suggesting. This corresponds to estimated diameter stenosis between 16 and 49%. Abnormal monophasic flow in the right CCA, ICA, and ECA may reflect more proximal disease. Vertebral artery flow is retrograde Left: Irregular heterogeneous calcified plaque in the carotid bifurcation Nonspecific velocity elevation in the left subclavian artery, 376/118 cm/s, can be artifact but raise s suspicion of stenosis. Proximal ICA elevated velocities of 237/48 cm/s. This raises suspicion of 50-79% diameter stenosis. Vertebral artery flow is antegrade but velocities are elevated, 362/84 cm/s, suggestive of stenosis No evidence of arterial occlusion. IMPRESSION: Relatively extensive bilateral carotid artery calcified atherosclerotic change Nonspecific velocity elevation in the left subclavian artery and left vertebral artery suggestive of stenosis Velocity elevation in proximal left ICA raises suspicion of stenosis between 50-79% diameter Monophasic flow but within normal limits velocity suggest diameter stenosis less than 50% in the righ t ICA Nonspecific retrograde flow in right vertebral artery This document is electronically signed by Wiliam Pinedo MD., Jul 29 2018 11:41:14 AM ET
--- NOTE | 2018-07-29 23:34 | Cat Scan Report ---
PROCEDURE: CT HEAD/BRAIN WO/W CON TECHNIQUE: Computerized tomography of the head was performed without contrast material. CT DOSE LENGTH PRODUCT: 1841 mGycm HISTORY: slurred speech, COMPARISONS: None . FINDINGS: Skull and scalp: Normal . Paranasal sinuses: Normal . Ventricles and subarachnoid spaces: Prominent consistent with cerebral atrophy appropriate for patie nt's age. . Cerebrum: Moderate degree of bilateral cerebral nonspecific white matter hypodensity is noted most li aliya representing chronic microangiopathy. An irregular hypodense lesion measuring 1 cm is noted in t he left parietal lobe without any mass effect consistent with encephalomalacia secondary to an old in farct or hemorrhage. An acute intra-axial or extra-axial hemorrhage or mass effect is not identified. Cerebellum and brainstem: No evidence of hemorrhage, acute infarction or mass . Vasculature: Normal . Other: None . 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 This is stable since March 31, 2017. This document is electronically signed by Edil Zavala MD., Jul 29 2018 11:32:01 PM ET
[2018-07-30 07:15] LABS: Hematocrit 20.7 % (30.3-42.9); Hemoglobin 6.8 gm/dl (10.1-14.3); Mean Corpuscular HGB Conc 33 % (30-34); Mean Corpuscular Volume 82 fl (79-97); Platelet Count 609 K/mm3 (140-440); Red Blood Count 2.52 M/mm3 (3.65-5.03)
[2018-07-30 07:30] LABS: Red Cell Distribution Width 20.5 % (13.2-15.2)
[2018-07-30 07:33] LABS: BUN/Creatinine Ratio 18; Blood Urea Nitrogen 7 mg/dL (7-17); Calcium 7.1 mg/dL (8.4-10.2); Hemolysis Index 2
[2018-07-30] MEDS: HumuLIN R SUB-Q SCH ×4 (08:17→21:16)
[2018-07-30] MEDS: INDERAL PO SCH ×3 (08:18→21:12)
[2018-07-30] MEDS ORDERED: MAGNESIUM SULFATE 4GM/100ML 4 GM/100 ML BAG IV ONE (09:00)
[2018-07-30] MEDS ORDERED: NACL 0.9% 500 ML 500 ML IV ONE (09:00)
[2018-07-30] MEDS: PULMICORT IH SCH ×2 (09:02→20:46)
[2018-07-30] MEDS: BROVANA NEBU IH SCH ×2 (09:02→20:46)
[2018-07-30] MEDS: K-DUR PO SCH (09:04)
[2018-07-30] MEDS: EFFEXOR PO SCH ×4 (09:04→21:15)
[2018-07-30] MEDS: CYMBALTA PO SCH (09:05)
[2018-07-30] MEDS: PROTONIX PO SCH ×2 (09:06→21:11)
[2018-07-30] MEDS: celeXA PO SCH (09:06)
[2018-07-30] MEDS: NEURONTIN PO SCH ×2 (09:06→21:12)
[2018-07-30] MEDS: ROCEPHIN/NS 1 GM/50 ML 1 GM/50 ML BAG IV SCH (09:07)
[2018-07-30] MEDS: SODIUM CHLORIDE FLUSH SYRINGE 10 ML IV SCH ×2 (09:09→21:15)
[2018-07-30] MEDS: THERAGRAN Tab PO SCH (09:11)
[2018-07-30] MEDS ORDERED: NACL 0.9% 500 ML 500 ML IV SCH (15:57)
--- NOTE | 2018-07-30 17:49 | Progress Note ---
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 this could be cause of seizures but not the pecular causwe of the weakness of the left leg a/w sensory problem feel sure she is having seizures but weakness of the left leg is problematic Why does she have nerve stimulator in spine this may well be tjhe explanation of the left leg weakness a/w arachnoiditis very complicated matter Objective - Vital Sign Vital Signs - 12hr 07/30/18 07/30/18 07/30/18 05:50 06:00 06:10 Temperature Pulse Rate 88 85 85 Pulse Rate [ Anterior Bilateral Throughout] Respiratory 12 14 13 Rate Respiratory Rate [Anterior Bilateral Throughout] Blood Pressure 109/87 O2 Sat by Pulse 97 96 98 Oximetry 07/30/18 07/30/18 07/30/18 06:20 06:30 06:40 Temperature Pulse Rate 83 83 80 Pulse Rate [ Anterior Bilateral Throughout] Respiratory 13 11 L 16 Rate Respiratory Rate [Anterior Bilateral Throughout] Blood Pressure 109/87 O2 Sat by Pulse 98 94 99 Oximetry 07/30/18 07/30/18 07/30/18 06:50 07:00 07:10 Temperature Pulse Rate 80 81 81 Pulse Rate [ Anterior Bilateral Throughout] Respiratory 15 13 14 Rate Respiratory Rate [Anterior Bilateral Throughout] Blood Pressure 89/34 107/57 O2 Sat by Pulse 100 88 87 Oximetry 07/30/18 07/30/18 07/30/18 07:20 07:30 07:40 Temperature Pulse Rate 83 81 80 Pulse Rate [ Anterior Bilateral Throughout] Respiratory 12 12 16 Rate Respiratory Rate [Anterior Bilateral Throughout] Blood Pressure 107/57 O2 Sat by Pulse 89 91 95 Oximetry 07/30/18 07/30/18 07/30/18 07:50 08:00 08:10 Temperature 98.6 F Pulse Rate 81 81 80 Pulse Rate [ Anterior Bilateral Throughout] Respiratory 16 24 Rate Respiratory Rate [Anterior Bilateral Throughout] Blood Pressure 117/63 117/63 O2 Sat by Pulse 95 80 L 93 Oximetry 07/30/18 07/30/18 07/30/18 08:18 08:20 08:30 Temperature Pulse Rate 81 80 Pulse Rate [ Anterior Bilateral Throughout] Respiratory Rate Respiratory Rate [Anterior Bilateral Throughout] Blood Pressure 117/63 117/63 O2 Sat by Pulse 100 87 Oximetry 07/30/18 07/30/18 07/30/18 08:40 08:50 09:00 Temperature Pulse Rate 85 86 87 Pulse Rate [ Anterior Bilateral Throughout] Respiratory Rate Respiratory Rate [Anterior Bilateral Throughout] Blood Pressure 127/72 O2 Sat by Pulse 95 86 94 Oximetry 07/30/18 07/30/18 07/30/18 09:02 09:04 09:10 Temperature Pulse Rate 81 Pulse Rate [ 83 Anterior Bilateral Throughout] Respiratory Rate Respiratory 18 Rate [Anterior Bilateral Throughout] Blood Pressure 127/72 O2 Sat by Pulse 97 100 Oximetry 07/30/18 07/30/18 07/30/18 09:19 09:20 09:30 Temperature Pulse Rate 80 79 Pulse Rate [ 84 Anterior Bilateral Throughout] Respiratory Rate Respiratory 18 Rate [Anterior Bilateral Throughout] Blood Pressure 127/72 O2 Sat by Pulse 100 85 Oximetry 07/30/18 07/30/18 07/30/18 09:40 09:50 10:00 Temperature Pulse Rate 78 77 Pulse Rate [ Anterior Bilateral Throughout] Respiratory Rate Respiratory Rate [Anterior Bilateral Throughout] Blood Pressure 125/39 O2 Sat by Pulse 91 98 98 Oximetry 07/30/18 07/30/18 07/30/18 10:10 10:20 10:30 Temperature Pulse Rate Pulse Rate [ Anterior Bilateral Throughout] Respiratory Rate Respiratory Rate [Anterior Bilateral Throughout] Blood Pressure 125/39 125/39 125/39 O2 Sat by Pulse 99 97 94 Oximetry 07/30/18 07/30/18 07/30/18 10:40 10:50 11:00 Temperature Pulse Rate 77 79 83 Pulse Rate [ Anterior Bilateral Throughout] Respiratory Rate Respiratory Rate [Anterior Bilateral Throughout] Blood Pressure 125/39 125/39 125/39 O2 Sat by Pulse 94 Oximetry 07/30/18 07/30/18 07/30/18 11:10 11:20 11:30 Temperature Pulse Rate 77 77 77 Pulse Rate [ Anterior Bilateral Throughout] Respiratory 22 Rate Respiratory Rate [Anterior Bilateral Throughout] Blood Pressure 103/48 103/48 O2 Sat by Pulse 88 100 100 Oximetry 07/30/18 07/30/18 07/30/18 11:40 11:50 12:00 Temperature 97.7 F Pulse Rate 76 76 75 Pulse Rate [ Anterior Bilateral Throughout] Respiratory 14 18 15 Rate Respiratory Rate [Anterior Bilateral Throughout] Blood Pressure 118/78 O2 Sat by Pulse 100 100 99 Oximetry 07/30/18 07/30/18 07/30/18 12:10 12:20 12:30 Temperature Pulse Rate 80 84 82 Pulse Rate [ Anterior Bilateral Throughout] Respiratory 14 16 14 Rate Respiratory Rate [Anterior Bilateral Throughout] Blood Pressure 118/78 118/78 O2 Sat by Pulse 86 100 100 Oximetry 07/30/18 07/30/18 07/30/18 12:40 12:50 13:00 Temperature Pulse Rate 78 77 78 Pulse Rate [ Anterior Bilateral Throughout] Respiratory 16 17 16 Rate Respiratory Rate [Anterior Bilateral Throughout] Blood Pressure 129/45 O2 Sat by Pulse 84 100 96 Oximetry 07/30/18 07/30/18 07/30/18 13:10 13:17 13:20 Temperature Pulse Rate 77 78 78 Pulse Rate [ Anterior Bilateral Throughout] Respiratory 16 13 Rate Respiratory Rate [Anterior Bilateral Throughout] Blood Pressure 129/45 O2 Sat by Pulse 100 100 Oximetry 07/30/18 07/30/18 07/30/18 13:30 13:40 13:50 Temperature Pulse Rate 79 77 78 Pulse Rate [ Anterior Bilateral Throughout] Respiratory 21 19 21 Rate Respiratory Rate [Anterior Bilateral Throughout] Blood Pressure O2 Sat by Pulse 99 97 98 Oximetry 07/30/18 07/30/18 07/30/18 14:00 14:10 14:20 Temperature Pulse Rate 78 78 82 Pulse Rate [ Anterior Bilateral Throughout] Respiratory 18 16 18 Rate Respiratory Rate [Anterior Bilateral Throughout] Blood Pressure 138/41 138/41 O2 Sat by Pulse 99 98 100 Oximetry 07/30/18 07/30/18 07/30/18 14:30 14:40 14:52 Temperature Pulse Rate 81 79 Pulse Rate [ Anterior Bilateral Throughout] Respiratory 12 19 Rate Respiratory Rate [Anterior Bilateral Throughout] Blood Pressure 138/41 138/41 138/41 O2 Sat by Pulse 98 100 98 Oximetry 07/30/18 07/30/18 07/30/18 15:00 15:10 15:20 Temperature Pulse Rate Pulse Rate [ Anterior Bilateral Throughout] Respiratory Rate Respiratory Rate [Anterior Bilateral Throughout] Blood Pressure 138/41 114/55 114/55 O2 Sat by Pulse 100 100 99 Oximetry 07/30/18 07/30/18 07/30/18 15:30 15:40 15:50 Temperature Pulse Rate Pulse Rate [ Anterior Bilateral Throughout] Respiratory Rate Respiratory Rate [Anterior Bilateral Throughout] Blood Pressure 114/55 114/55 O2 Sat by Pulse 90 100 97 Oximetry 07/30/18 07/30/18 07/30/18 16:00 16:10 16:20 Temperature 98.5 F Pulse Rate Pulse Rate [ Anterior Bilateral Throughout] Respiratory Rate Respiratory Rate [Anterior Bilateral Throughout] Blood Pressure 90/30 O2 Sat by Pulse 98 99 98 Oximetry 07/30/18 07/30/18 07/30/18 16:30 16:40 16:50 Temperature Pulse Rate 78 Pulse Rate [ Anterior Bilateral Throughout] Respiratory 15 Rate Respiratory Rate [Anterior Bilateral Throughout] Blood Pressure 104/58 O2 Sat by Pulse 98 98 98 Oximetry 07/30/18 07/30/18 07/30/18 17:00 17:10 17:20 Temperature Pulse Rate 78 76 76 Pulse Rate [ Anterior Bilateral Throughout] Respiratory 19 18 19 Rate Respiratory Rate [Anterior Bilateral Throughout] Blood Pressure 104/58 113/35 113/35 O2 Sat by Pulse 94 86 Oximetry 07/30/18 17:30 Temperature Pulse Rate 78 Pulse Rate [ Anterior Bilateral Throughout] Respiratory 16 Rate Respiratory Rate [Anterior Bilateral Throughout] Blood Pressure 113/41 O2 Sat by Pulse 92 Oximetry - Laboratory Findings CBC and BMP: 07/30/18 06:56 07/30/18 06:56 Abnormal Lab Findings: Abnormal Labs 07/27/18 07/27/18 07/27/18 13:13 13:13 13:13 WBC RBC 3.43 L Hgb 9.4 L Hct 28.5 L MCH 27 L RDW 20.9 H Plt Count 677 H Lymph % (Auto) 10.1 L Lymph # 1.1 L Seg Neutrophils % 83.7 H Seg Neuts % (Manual) Lymphocytes % (Manual) Seg Neutrophils # 9.0 H Seg Neutrophils # Man Lymphocytes # (Manual) PT 15.3 H INR 1.14 H Thrombin Time 13.7 L Sodium Potassium 3.1 L Chloride 95.1 L Carbon Dioxide 20 L BUN 6 L Creatinine Glucose 172 H POC Glucose Calcium 6.8 L Phosphorus Magnesium Alkaline Phosphatase Total Creatine Kinase Total Protein Albumin Urine WBC (Auto) Crossmatch 07/27/18 07/27/18 07/27/18 13:13 13:35 13:53 WBC RBC Hgb Hct MCH RDW Plt Count Lymph % (Auto) Lymph # Seg Neutrophils % Seg Neuts % (Manual) Lymphocytes % (Manual) Seg Neutrophils # Seg Neutrophils # Man Lymphocytes # (Manual) PT INR Thrombin Time Sodium Potassium Chloride Carbon Dioxide BUN Creatinine Glucose POC Glucose Calcium Phosphorus Magnesium 0.80 L* Alkaline Phosphatase 173 H Total Creatine Kinase 221 H Total Protein 6.2 L Albumin 2.6 L Urine WBC (Auto) > 182.0 H Crossmatch 07/27/18 07/27/18 07/27/18 14:57 17:18 22:36 WBC RBC Hgb Hct MCH RDW Plt Count Lymph % (Auto) Lymph # Seg Neutrophils % Seg Neuts % (Manual) Lymphocytes % (Manual) Seg Neutrophils # Seg Neutrophils # Man Lymphocytes # (Manual) PT INR Thrombin Time Sodium Potassium Chloride Carbon Dioxide BUN Creatinine Glucose POC Glucose 180 H 195 H Calcium Phosphorus Magnesium Alkaline Phosphatase Total Creatine Kinase Total Protein Albumin Urine WBC (Auto) Crossmatch See Detail 07/28/18 07/28/18 07/28/18 04:50 04:50 04:50 WBC RBC 2.77 L Hgb 7.6 L Hct 25.2 L MCH 27 L RDW 21.4 H Plt Count 604 H Lymph % (Auto) Lymph # Seg Neutrophils % Seg Neuts % (Manual) 88.0 H Lymphocytes % (Manual) 7.0 L Seg Neutrophils # Seg Neutrophils # Man 8.8 H Lymphocytes # (Manual) 0.7 L PT INR Thrombin Time Sodium 133 L Potassium 3.4 L Chloride Carbon Dioxide 19 L BUN Creatinine 0.5 L Glucose 129 H POC Glucose Calcium 6.5 L Phosphorus Magnesium 1.40 L Alkaline Phosphatase 134 H Total Creatine Kinase Total Protein 5.5 L Albumin 1.8 L Urine WBC (Auto) Crossmatch 07/28/18 07/28/18 07/28/18 08:33 11:45 15:08 WBC RBC Hgb 7.4 L Hct 23.0 L MCH RDW Plt Count Lymph % (Auto) Lymph # Seg Neutrophils % Seg Neuts % (Manual) Lymphocytes % (Manual) Seg Neutrophils # Seg Neutrophils # Man Lymphocytes # (Manual) PT INR Thrombin Time Sodium Potassium Chloride Carbon Dioxide BUN Creatinine Glucose POC Glucose 151 H 227 H Calcium Phosphorus Magnesium Alkaline Phosphatase Total Creatine Kinase Total Protein Albumin Urine WBC (Auto) Crossmatch 07/28/18 07/28/18 07/29/18 16:11 21:37 06:03 WBC 11.2 H RBC 2.92 L Hgb 8.0 L Hct 24.5 L MCH 27 L RDW 21.0 H Plt Count 630 H Lymph % (Auto) Lymph # Seg Neutrophils % Seg Neuts % (Manual) Lymphocytes % (Manual) Seg Neutrophils # Seg Neutrophils # Man Lymphocytes # (Manual) PT INR Thrombin Time Sodium Potassium Chloride Carbon Dioxide BUN Creatinine Glucose POC Glucose 264 H 218 H Calcium Phosphorus Magnesium Alkaline Phosphatase Total Creatine Kinase Total Protein Albumin Urine WBC (Auto) Crossmatch 07/29/18 07/29/18 07/29/18 06:03 08:16 11:32 WBC RBC Hgb Hct MCH RDW Plt Count Lymph % (Auto) Lymph # Seg Neutrophils % Seg Neuts % (Manual) Lymphocytes % (Manual) Seg Neutrophils # Seg Neutrophils # Man Lymphocytes # (Manual) PT INR Thrombin Time Sodium 135 L Potassium Chloride Carbon Dioxide BUN Creatinine 0.4 L Glucose 117 H POC Glucose 121 H 230 H Calcium 7.0 L Phosphorus 2.30 L Magnesium 1.20 L Alkaline Phosphatase Total Creatine Kinase Total Protein Albumin Urine WBC (Auto) Crossmatch 07/29/18 07/29/18 07/30/18 16:08 22:41 06:56 WBC RBC 2.52 L Hgb 6.8 L Hct 20.7 L MCH 27 L RDW 20.5 H Plt Count 609 H Lymph % (Auto) Lymph # Seg Neutrophils % Seg Neuts % (Manual) Lymphocytes % (Manual) Seg Neutrophils # Seg Neutrophils # Man Lymphocytes # (Manual) PT INR Thrombin Time Sodium Potassium Chloride Carbon Dioxide BUN Creatinine Glucose POC Glucose 197 H 206 H Calcium Phosphorus Magnesium Alkaline Phosphatase Total Creatine Kinase Total Protein Albumin Urine WBC (Auto) Crossmatch 07/30/18 07/30/18 07/30/18 06:56 08:01 08:04 WBC RBC Hgb Hct MCH RDW Plt Count Lymph % (Auto) Lymph # Seg Neutrophils % Seg Neuts % (Manual) Lymphocytes % (Manual) Seg Neutrophils # Seg Neutrophils # Man Lymphocytes # (Manual) PT INR Thrombin Time Sodium 131 L Potassium Chloride Carbon Dioxide BUN Creatinine 0.4 L Glucose 131 H POC Glucose 68 L 69 L Calcium 7.1 L Phosphorus Magnesium 1.50 L Alkaline Phosphatase Total Creatine Kinase Total Protein Albumin Urine WBC (Auto) Crossmatch 07/30/18 07/30/18 07/30/18 08:59 12:44 13:42 WBC RBC Hgb Hct MCH RDW Plt Count Lymph % (Auto) Lymph # Seg Neutrophils % Seg Neuts % (Manual) Lymphocytes % (Manual) Seg Neutrophils # Seg Neutrophils # Man Lymphocytes # (Manual) PT INR Thrombin Time Sodium Potassium Chloride Carbon Dioxide BUN Creatinine Glucose POC Glucose 168 H 238 H Calcium Phosphorus Magnesium Alkaline Phosphatase Total Creatine Kinase Total Protein Albumin Urine WBC (Auto) Crossmatch See Detail 07/30/18 16:19 WBC RBC Hgb Hct MCH RDW Plt Count Lymph % (Auto) Lymph # Seg Neutrophils % Seg Neuts % (Manual) Lymphocytes % (Manual) Seg Neutrophils # Seg Neutrophils # Man Lymphocytes # (Manual) PT INR Thrombin Time Sodium Potassium Chloride Carbon Dioxide BUN Creatinine Glucose POC Glucose 130 H Calcium Phosphorus Magnesium Alkaline Phosphatase Total Creatine Kinase Total Protein Albumin Urine WBC (Auto) Crossmatch
[2018-07-31 05:21] LABS: Hematocrit 22.1 % (30.3-42.9); Hemoglobin 7.3 gm/dl (10.1-14.3); Mean Corpuscular HGB Conc 33 % (30-34); Mean Corpuscular Volume 83 fl (79-97); Platelet Count 592 K/mm3 (140-440); Red Blood Count 2.65 M/mm3 (3.65-5.03); Red Cell Distribution Width 19.5 % (13.2-15.2)
[2018-07-31 05:46] LABS: BUN/Creatinine Ratio 14; Blood Urea Nitrogen 7 mg/dL (7-17); Calcium 7.6 mg/dL (8.4-10.2); Hemolysis Index 7
[2018-07-31] MEDS: BROVANA NEBU IH SCH (07:40)
[2018-07-31] MEDS: PULMICORT IH SCH (07:40)
[2018-07-31] MEDS: HumuLIN R SUB-Q SCH ×4 (08:00→23:22)
--- NOTE | 2018-07-31 08:05 | Progress Note ---
Subjective Date of service: 07/31/18 Principal diagnosis: anemia Interval history: went over the case with orthopedics and pulled up all old records the patient did not go for f/u post hip surgery... position of the left hip is basically unchanged... this is old problem... advise recheck Xray the old lesion from the left brain stroke likely is causing focal seizures therefoe epilepsy meds neeed as well check CT of spine since we can not get MRI based on stimullator Objective - Vital Sign Vital Signs - 12hr 07/30/18 07/30/18 07/30/18 20:10 20:20 20:30 Temperature Pulse Rate 84 84 81 Pulse Rate [ Anterior Bilateral Throughout] Respiratory 16 13 17 Rate Respiratory Rate [Anterior Bilateral Throughout] Blood Pressure 119/33 119/33 144/39 O2 Sat by Pulse 99 98 97 Oximetry 07/30/18 07/30/18 07/30/18 20:40 20:47 20:50 Temperature Pulse Rate 81 81 Pulse Rate [ 79 Anterior Bilateral Throughout] Respiratory 19 13 Rate Respiratory 16 Rate [Anterior Bilateral Throughout] Blood Pressure 144/39 144/39 O2 Sat by Pulse 98 99 Oximetry 07/30/18 07/30/18 07/30/18 21:00 21:10 21:12 Temperature Pulse Rate 80 79 80 Pulse Rate [ Anterior Bilateral Throughout] Respiratory 12 19 Rate Respiratory Rate [Anterior Bilateral Throughout] Blood Pressure 144/39 144/39 144/39 O2 Sat by Pulse 98 97 Oximetry 07/30/18 07/30/18 07/30/18 21:20 21:30 21:40 Temperature Pulse Rate 79 78 77 Pulse Rate [ Anterior Bilateral Throughout] Respiratory 15 18 18 Rate Respiratory Rate [Anterior Bilateral Throughout] Blood Pressure 144/39 O2 Sat by Pulse 97 96 96 Oximetry 07/30/18 07/30/18 07/30/18 21:50 21:53 22:00 Temperature 98.3 F Pulse Rate 80 76 Pulse Rate [ Anterior Bilateral Throughout] Respiratory 19 16 Rate Respiratory Rate [Anterior Bilateral Throughout] Blood Pressure O2 Sat by Pulse 97 97 Oximetry 07/30/18 07/30/18 07/30/18 22:02 22:10 22:20 Temperature Pulse Rate 78 80 Pulse Rate [ Anterior Bilateral Throughout] Respiratory 15 19 Rate Respiratory Rate [Anterior Bilateral Throughout] Blood Pressure O2 Sat by Pulse 98 98 90 Oximetry 0507/30/18 07/30/18 22:30 22:40 22:50 Temperature Pulse Rate 76 75 77 Pulse Rate [ Anterior Bilateral Throughout] Respiratory 13 18 17 Rate Respiratory Rate [Anterior Bilateral Throughout] Blood Pressure O2 Sat by Pulse 94 97 98 Oximetry 07/30/18 07/30/18 07/30/18 23:00 23:10 23:15 Temperature Pulse Rate 75 76 76 Pulse Rate [ Anterior Bilateral Throughout] Respiratory 18 21 15 Rate Respiratory Rate [Anterior Bilateral Throughout] Blood Pressure O2 Sat by Pulse 96 96 98 Oximetry 07/30/18 07/30/18 07/30/18 23:20 23:23 23:30 Temperature Pulse Rate 74 75 76 Pulse Rate [ Anterior Bilateral Throughout] Respiratory 15 18 12 Rate Respiratory Rate [Anterior Bilateral Throughout] Blood Pressure O2 Sat by Pulse 100 100 97 Oximetry 07/30/18 07/30/18 07/30/18 23:40 23:41 23:42 Temperature Pulse Rate 76 76 76 Pulse Rate [ Anterior Bilateral Throughout] Respiratory 15 13 Rate Respiratory Rate [Anterior Bilateral Throughout] Blood Pressure O2 Sat by Pulse 97 98 Oximetry 07/30/18 07/31/18 07/31/18 23:50 00:00 00:10 Temperature Pulse Rate 77 74 77 Pulse Rate [ Anterior Bilateral Throughout] Respiratory 16 18 20 Rate Respiratory Rate [Anterior Bilateral Throughout] Blood Pressure 145/55 O2 Sat by Pulse 94 99 94 Oximetry 07/31/18 07/31/18 07/31/18 00:20 00:22 00:30 Temperature 97.5 F L Pulse Rate 73 76 Pulse Rate [ Anterior Bilateral Throughout] Respiratory 20 12 Rate Respiratory Rate [Anterior Bilateral Throughout] Blood Pressure 145/55 O2 Sat by Pulse 97 97 Oximetry 07/31/18 07/31/18 07/31/18 00:40 00:50 01:00 Temperature Pulse Rate 74 73 75 Pulse Rate [ Anterior Bilateral Throughout] Respiratory 16 15 17 Rate Respiratory Rate [Anterior Bilateral Throughout] Blood Pressure O2 Sat by Pulse 94 96 94 Oximetry 07/31/18 07/31/18 07/31/18 01:10 01:20 01:30 Temperature Pulse Rate 76 77 76 Pulse Rate [ Anterior Bilateral Throughout] Respiratory 17 16 16 Rate Respiratory Rate [Anterior Bilateral Throughout] Blood Pressure O2 Sat by Pulse 94 94 95 Oximetry 07/31/18 07/31/18 07/31/18 01:40 01:50 02:00 Temperature Pulse Rate 76 76 76 Pulse Rate [ Anterior Bilateral Throughout] Respiratory 17 17 17 Rate Respiratory Rate [Anterior Bilateral Throughout] Blood Pressure O2 Sat by Pulse 95 95 94 Oximetry 07/31/18 07/31/18 07/31/18 02:10 02:20 02:30 Temperature Pulse Rate 78 77 77 Pulse Rate [ Anterior Bilateral Throughout] Respiratory 16 17 17 Rate Respiratory Rate [Anterior Bilateral Throughout] Blood Pressure O2 Sat by Pulse 95 95 96 Oximetry 07/31/18 07/31/18 07/31/18 02:40 02:50 03:00 Temperature Pulse Rate 77 79 78 Pulse Rate [ Anterior Bilateral Throughout] Respiratory 16 18 16 Rate Respiratory Rate [Anterior Bilateral Throughout] Blood Pressure O2 Sat by Pulse 97 96 96 Oximetry 07/31/18 07/31/18 07/31/18 03:10 03:11 03:20 Temperature Pulse Rate 77 76 78 Pulse Rate [ Anterior Bilateral Throughout] Respiratory 15 17 Rate Respiratory Rate [Anterior Bilateral Throughout] Blood Pressure O2 Sat by Pulse 98 96 Oximetry 07/31/18 07/31/18 07/31/18 03:30 03:40 03:50 Temperature Pulse Rate 78 77 78 Pulse Rate [ Anterior Bilateral Throughout] Respiratory 16 17 18 Rate Respiratory Rate [Anterior Bilateral Throughout] Blood Pressure O2 Sat by Pulse 94 97 95 Oximetry 07/31/18 07/31/18 07/31/18 04:00 04:10 07:40 Temperature 98.2 F Pulse Rate 79 77 Pulse Rate [ 77 Anterior Bilateral Throughout] Respiratory 16 14 Rate Respiratory 18 Rate [Anterior Bilateral Throughout] Blood Pressure 125/56 125/56 O2 Sat by Pulse 97 97 98 Oximetry - Laboratory Findings CBC and BMP: 07/31/18 05:06 07/31/18 05:06 Abnormal Lab Findings: Abnormal Labs 07/27/18 07/27/18 07/27/18 13:13 13:13 13:13 WBC RBC 3.43 L Hgb 9.4 L Hct 28.5 L MCH 27 L RDW 20.9 H Plt Count 677 H Lymph % (Auto) 10.1 L Lymph # 1.1 L Seg Neutrophils % 83.7 H Seg Neuts % (Manual) Lymphocytes % (Manual) Seg Neutrophils # 9.0 H Seg Neutrophils # Man Lymphocytes # (Manual) PT 15.3 H INR 1.14 H Thrombin Time 13.7 L Sodium Potassium 3.1 L Chloride 95.1 L Carbon Dioxide 20 L BUN 6 L Creatinine Glucose 172 H POC Glucose Calcium 6.8 L Phosphorus Magnesium Alkaline Phosphatase Total Creatine Kinase Total Protein Albumin Urine WBC (Auto) Crossmatch 07/27/18 07/27/18 07/27/18 13:13 13:35 13:53 WBC RBC Hgb Hct MCH RDW Plt Count Lymph % (Auto) Lymph # Seg Neutrophils % Seg Neuts % (Manual) Lymphocytes % (Manual) Seg Neutrophils # Seg Neutrophils # Man Lymphocytes # (Manual) PT INR Thrombin Time Sodium Potassium Chloride Carbon Dioxide BUN Creatinine Glucose POC Glucose Calcium Phosphorus Magnesium 0.80 L* Alkaline Phosphatase 173 H Total Creatine Kinase 221 H Total Protein 6.2 L Albumin 2.6 L Urine WBC (Auto) > 182.0 H Crossmatch 07/27/18 07/27/18 07/27/18 14:57 17:18 22:36 WBC RBC Hgb Hct MCH RDW Plt Count Lymph % (Auto) Lymph # Seg Neutrophils % Seg Neuts % (Manual) Lymphocytes % (Manual) Seg Neutrophils # Seg Neutrophils # Man Lymphocytes # (Manual) PT INR Thrombin Time Sodium Potassium Chloride Carbon Dioxide BUN Creatinine Glucose POC Glucose 180 H 195 H Calcium Phosphorus Magnesium Alkaline Phosphatase Total Creatine Kinase Total Protein Albumin Urine WBC (Auto) Crossmatch See Detail 07/28/18 07/28/18 07/28/18 04:50 04:50 04:50 WBC RBC 2.77 L Hgb 7.6 L Hct 25.2 L MCH 27 L RDW 21.4 H Plt Count 604 H Lymph % (Auto) Lymph # Seg Neutrophils % Seg Neuts % (Manual) 88.0 H Lymphocytes % (Manual) 7.0 L Seg Neutrophils # Seg Neutrophils # Man 8.8 H Lymphocytes # (Manual) 0.7 L PT INR Thrombin Time Sodium 133 L Potassium 3.4 L Chloride Carbon Dioxide 19 L BUN Creatinine 0.5 L Glucose 129 H POC Glucose Calcium 6.5 L Phosphorus Magnesium 1.40 L Alkaline Phosphatase 134 H Total Creatine Kinase Total Protein 5.5 L Albumin 1.8 L Urine WBC (Auto) Crossmatch 07/28/18 07/28/18 07/28/18 08:33 11:45 15:08 WBC RBC Hgb 7.4 L Hct 23.0 L MCH RDW Plt Count Lymph % (Auto) Lymph # Seg Neutrophils % Seg Neuts % (Manual) Lymphocytes % (Manual) Seg Neutrophils # Seg Neutrophils # Man Lymphocytes # (Manual) PT INR Thrombin Time Sodium Potassium Chloride Carbon Dioxide BUN Creatinine Glucose POC Glucose 151 H 227 H Calcium Phosphorus Magnesium Alkaline Phosphatase Total Creatine Kinase Total Protein Albumin Urine WBC (Auto) Crossmatch 07/28/18 07/28/18 07/29/18 16:11 21:37 06:03 WBC 11.2 H RBC 2.92 L Hgb 8.0 L Hct 24.5 L MCH 27 L RDW 21.0 H Plt Count 630 H Lymph % (Auto) Lymph # Seg Neutrophils % Seg Neuts % (Manual) Lymphocytes % (Manual) Seg Neutrophils # Seg Neutrophils # Man Lymphocytes # (Manual) PT INR Thrombin Time Sodium Potassium Chloride Carbon Dioxide BUN Creatinine Glucose POC Glucose 264 H 218 H Calcium Phosphorus Magnesium Alkaline Phosphatase Total Creatine Kinase Total Protein Albumin Urine WBC (Auto) Crossmatch 07/29/18 07/29/18 07/29/18 06:03 08:16 11:32 WBC RBC Hgb Hct MCH RDW Plt Count Lymph % (Auto) Lymph # Seg Neutrophils % Seg Neuts % (Manual) Lymphocytes % (Manual) Seg Neutrophils # Seg Neutrophils # Man Lymphocytes # (Manual) PT INR Thrombin Time Sodium 135 L Potassium Chloride Carbon Dioxide BUN Creatinine 0.4 L Glucose 117 H POC Glucose 121 H 230 H Calcium 7.0 L Phosphorus 2.30 L Magnesium 1.20 L Alkaline Phosphatase Total Creatine Kinase Total Protein Albumin Urine WBC (Auto) Crossmatch 07/29/18 07/29/18 07/30/18 16:08 22:41 06:56 WBC RBC 2.52 L Hgb 6.8 L Hct 20.7 L MCH 27 L RDW 20.5 H Plt Count 609 H Lymph % (Auto) Lymph # Seg Neutrophils % Seg Neuts % (Manual) Lymphocytes % (Manual) Seg Neutrophils # Seg Neutrophils # Man Lymphocytes # (Manual) PT INR Thrombin Time Sodium Potassium Chloride Carbon Dioxide BUN Creatinine Glucose POC Glucose 197 H 206 H Calcium Phosphorus Magnesium Alkaline Phosphatase Total Creatine Kinase Total Protein Albumin Urine WBC (Auto) Crossmatch 07/30/18 07/30/18 07/30/18 06:56 08:01 08:04 WBC RBC Hgb Hct MCH RDW Plt Count Lymph % (Auto) Lymph # Seg Neutrophils % Seg Neuts % (Manual) Lymphocytes % (Manual) Seg Neutrophils # Seg Neutrophils # Man Lymphocytes # (Manual) PT INR Thrombin Time Sodium 131 L Potassium Chloride Carbon Dioxide BUN Creatinine 0.4 L Glucose 131 H POC Glucose 68 L 69 L Calcium 7.1 L Phosphorus Magnesium 1.50 L Alkaline Phosphatase Total Creatine Kinase Total Protein Albumin Urine WBC (Auto) Crossmatch 07/30/18 07/30/18 07/30/18 08:59 12:44 13:42 WBC RBC Hgb Hct MCH RDW Plt Count Lymph % (Auto) Lymph # Seg Neutrophils % Seg Neuts % (Manual) Lymphocytes % (Manual) Seg Neutrophils # Seg Neutrophils # Man Lymphocytes # (Manual) PT INR Thrombin Time Sodium Potassium Chloride Carbon Dioxide BUN Creatinine Glucose POC Glucose 168 H 238 H Calcium Phosphorus Magnesium Alkaline Phosphatase Total Creatine Kinase Total Protein Albumin Urine WBC (Auto) Crossmatch See Detail 07/30/18 07/30/18 07/31/18 16:19 21:17 05:06 WBC RBC 2.65 L Hgb 7.3 L Hct 22.1 L MCH RDW 19.5 H Plt Count 592 H Lymph % (Auto) Lymph # Seg Neutrophils % Seg Neuts % (Manual) Lymphocytes % (Manual) Seg Neutrophils # Seg Neutrophils # Man Lymphocytes # (Manual) PT INR Thrombin Time Sodium Potassium Chloride Carbon Dioxide BUN Creatinine Glucose POC Glucose 130 H 234 H Calcium Phosphorus Magnesium Alkaline Phosphatase Total Creatine Kinase Total Protein Albumin Urine WBC (Auto) Crossmatch 07/31/18 05:06 WBC RBC Hgb Hct MCH RDW Plt Count Lymph % (Auto) Lymph # Seg Neutrophils % Seg Neuts % (Manual) Lymphocytes % (Manual) Seg Neutrophils # Seg Neutrophils # Man Lymphocytes # (Manual) PT INR Thrombin Time Sodium 131 L Potassium Chloride Carbon Dioxide 21 L BUN Creatinine 0.5 L Glucose 115 H POC Glucose Calcium 7.6 L Phosphorus Magnesium 1.40 L Alkaline Phosphatase Total Creatine Kinase Total Protein Albumin Urine WBC (Auto) Crossmatch
[2018-07-31] MEDS ORDERED: MAGNESIUM SULFATE 4GM/100ML 4 GM/100 ML BAG IV ONE (08:17)
--- NOTE | 2018-07-31 09:27 | XRay Report ---
LEFT HIP, 2 views: History: Hip pain. Findings: Left hip arthroplasty has been performed. There is normal articulation at the left hip. No evidence for acute fracture or malalignment. There is minimal lucency along the medial border of the femoral prosthesis which could represent loosening. There are mild heterotopic calcifications posterior to the trochanters. The visualized left hemipelvis is intact. Mild osteopenia. IMPRESSION: No acute process. Osteopenia. Question mild loosening of the femoral component of the left hip prosthesis.
--- NOTE | 2018-07-31 09:30 | Progress Note ---
Assessment and Plan Assessment and plan: Acute ischemic stroke Not given Aspirin because GI bleed Cannot do MRI because of hardware Ct Head no new stroke Encephalopathy Improving Now fully awake,alert GI bleed Serial H/H GI following Anemia due to acute GI bleed Hgb 6.8 Transfuse 2 Units PRBC UTI Cont Ceftriaxone iv Hyperlipidemia Hypomagnesemia Replace and recheck Hypophosphatemia Replace and recheck Hypokalemia Full code status History Interval history: Slurred speech Right sided weakness Hospitalist Physical - Physical exam Narrative exam: Gen: Not in acute distress, lying in bed, HEENT: Normocephalic, atraumatic Neck: supple, no JVD Heart: S1 and S2 reg, no murmurs, rubs or gallop Lungs: Clear, no crackles, no wheeze Abd: soft, non tender, non distended, normal BS Ext: No edema, no clubbing, no cyanosis, Neuro: Awake,alert, oriented x 3, right sided weakness, slurred speech Psych:Normal mood - Constitutional Vitals: Temp Pulse Resp BP Pulse Ox 98.2 F 76 18 125/56 98 07/31/18 04:00 07/31/18 07:50 07/31/18 07:50 07/31/18 04:10 07/31/18 07:40 Results - Labs CBC & Chem 7: 07/31/18 05:06 07/31/18 05:06 Labs: Laboratory Last Values WBC 9.5 K/mm3 (4.5-11.0) 07/31/18 05:06 RBC 2.65 M/mm3 (3.65-5.03) L 07/31/18 05:06 Hgb 7.3 gm/dl (10.1-14.3) L 07/31/18 05:06 Hct 22.1 % (30.3-42.9) L 07/31/18 05:06 MCV 83 fl (79-97) 07/31/18 05:06 MCH 28 pg (28-32) 07/31/18 05:06 MCHC 33 % (30-34) 07/31/18 05:06 RDW 19.5 % (13.2-15.2) H 07/31/18 05:06 Plt Count 592 K/mm3 (140-440) H 07/31/18 05:06 Lymph % (Auto) [employer] Consultant 07/28/18 04:50 [place] % (Auto) [employer]force Management Consultant 07/28/18 04:50 Eos % (Auto) [employer] Management Consultant 07/28/18 04:50 Baso % (Auto) [employer] Management Consultant 07/28/18 04:50 Lymph # [employer] Consultant 07/28/18 04:50 [place]cl[place] # [employer] Management Consultant 07/28/18 04:50 Eos # [employer] Management Consultant 07/28/18 04:50 Baso # [employer] Management Consultant 07/28/18 04:50 Add Manual Diff Complete 07/28/18 04:50 Total Counted 100 07/28/18 04:50 Seg Neutrophils % [employer] Consultant 07/28/18 04:50 Seg Neuts % (Manual) 88.0 % (40.0-70.0) H 07/28/18 04:50 0 % 07/28/18 04:50 7.0 % (13.4-35.0) L 07/28/18 04:50 Reactive Lymphs % (Man) 0 % 07/28/18 04:50 5.0 % (0.0-7.3) 07/28/18 04:50 0 % (0.0-4.3) 07/28/18 04:50 0 % (0.0-1.8) 07/28/18 04:50 0 % 07/28/18 04:50 0 % 07/28/18 04:50 0 % 07/28/18 04:50 0 % 07/28/18 04:50 Nucleated RBC % Not Reportable 07/28/18 04:50 Seg Neutrophils # [employer] Management Consultant 07/28/18 04:50 Seg Neutrophils # Man 8.8 K/mm3 (1.8-7.7) H 07/28/18 04:50 Band Neutrophils # 0.0 K/mm3 07/28/18 04:50 0.7 K/mm3 (1.2-5.4) L 07/28/18 04:50 Abs React Lymphs (Man) 0.0 K/mm3 07/28/18 04:50 0.5 K/mm3 (0.0-0.8) 07/28/18 04:50 0.0 K/mm3 (0.0-0.4) 07/28/18 04:50 0.0 K/mm3 (0.0-0.1) 07/28/18 04:50 0.0 K/mm3 07/28/18 04:50 0.0 K/mm3 07/28/18 04:50 0.0 K/mm3 07/28/18 04:50 Blast Cells # 0.0 K/mm3 07/28/18 04:50 WBC Morphology Not Reportable 07/28/18 04:50 Hypersegmented Neuts Not Reportable 07/28/18 04:50 Hyposegmented Neuts Not Reportable 07/28/18 04:50 Hypogranular Neuts Not Reportable 07/28/18 04:50 Not Reportable 07/28/18 04:50 Not Reportable 07/28/18 04:50 Not Reportable 07/28/18 04:50 Not Reportable 07/28/18 04:50 Not Reportable 07/28/18 04:50 Not Reportable 07/28/18 04:50 Consistent w auto 07/28/18 04:50 Not Reportable 07/28/18 04:50 Plt Clumps, EDTA Not Reportable 07/28/18 04:50 Not Reportable 07/28/18 04:50 Not Reportable 07/28/18 04:50 Not Reportable 07/28/18 04:50 Plt Morphology Comment Not Reportable 07/28/18 04:50 RBC Morphology Not Reportable 07/28/18 04:50 Dimorphic RBCs Not Reportable 07/28/18 04:50 Not Reportable 07/28/18 04:50 Not Reportable 07/28/18 04:50 Not Reportable 07/28/18 04:50 1+ 07/28/18 04:50 Not Reportable 07/28/18 04:50 Not Reportable 07/28/18 04:50 Not Reportable 07/28/18 04:50 Not Reportable 07/28/18 04:50 Not Reportable 07/28/18 04:50 Not Reportable 07/28/18 04:50 Not Reportable 07/28/18 04:50 Not Reportable 07/28/18 04:50 Not Reportable 07/28/18 04:50 Not Reportable 07/28/18 04:50 Not Reportable 07/28/18 04:50 Not Reportable 07/28/18 04:50 Not Reportable 07/28/18 04:50 Not Reportable 07/28/18 04:50 Not Reportable 07/28/18 04:50 Acanthocytes (Spur) Not Reportable 07/28/18 04:50 Rouleaux Not Reportable 07/28/18 04:50 Not Reportable 07/28/18 04:50 Not Reportable 07/28/18 04:50 Not Reportable 07/28/18 04:50 Not Reportable 07/28/18 04:50 Hem Pathologist Commnt No 07/28/18 04:50 PT 15.3 Sec. (12.2-14.9) H 07/27/18 13:13 INR 1.14 (0.87-1.13) H 07/27/18 13:13 APTT 26.8 Sec. (24.2-36.6) 07/27/18 13:13 13.7 Sec. (15.1-19.6) L 07/27/18 13:13 Sodium 131 mmol/L (137-145) L 07/31/18 05:06 Potassium 4.1 mmol/L (3.6-5.0) 07/31/18 05:06 Chloride 98.1 mmol/L (98-107) 07/31/18 05:06 Carbon Dioxide 21 mmol/L (22-30) L 07/31/18 05:06 16 mmol/L 07/31/18 05:06 BUN 7 mg/dL (7-17) 07/31/18 05:06 0.5 mg/dL (0.7-1.2) L 07/31/18 05:06 Estimated GFR > 60 ml/min 07/31/18 05:06 14 % 07/31/18 05:06 Glucose 115 mg/dL (65-100) H 07/31/18 05:06 POC Glucose 234 (70-105) H 07/30/18 21:17 Calcium 7.6 mg/dL (8.4-10.2) L 07/31/18 05:06 Phosphorus 3.50 mg/dL (2.5-4.5) D 07/30/18 06:56 Magnesium 1.40 mg/dL (1.7-2.3) L 07/31/18 05:06 0.20 mg/dL (0.1-1.2) 07/28/18 04:50 < 0.2 mg/dL (0-0.2) 07/27/18 13:53 0.0 mg/dL 07/27/18 13:53 AST 15 units/L (5-40) 07/28/18 04:50 ALT 10 units/L (7-56) 07/28/18 04:50 134 units/L (35-129) H 07/28/18 04:50 221 units/L (30-135) H 07/27/18 13:13 < 0.010 ng/mL (0.00-0.029) 07/27/18 13:13 5.5 g/dL (6.3-8.2) L 07/28/18 04:50 1.8 g/dL (3.9-5) L 07/28/18 04:50 0.5 % 07/28/18 04:50 TSH 1.050 mlU/mL (0.270-4.200) 07/27/18 13:13 Yellow (Yellow) 07/27/18 13:35 Cloudy (Clear) 07/27/18 13:35 6.0 (5.0-7.0) 07/27/18 13:35 Ur Specific [place] 1.006 (1.003-1.030) 07/27/18 13:35 <15 mg/dl mg/dL (Negative) 07/27/18 13:35 Neg mg/dL (Negative) 07/27/18 13:35 Neg mg/dL (Negative) 07/27/18 13:35 Sm (Negative) 07/27/18 13:35 Pos (Negative) 07/27/18 13:35 Neg (Negative) 07/27/18 13:35 < 2.0 mg/dL (<2.0) 07/27/18 13:35 Ur Leukocyte Esterase Lg (Negative) 07/27/18 13:35 > 182.0 /HPF (0.0-6.0) H 07/27/18 13:35 23.0 /HPF (0.0-6.0) 07/27/18 13:35 4+ /HPF (Negative) 07/27/18 13:35 3+ /HPF 07/27/18 13:35 Blood Type A NEGATIVE 07/30/18 13:42 Antibody Screen Negative 07/30/18 13:42 Crossmatch See Detail 07/30/18 13:42 Active Medications - Current Medications Current Medications: Generic Name Dose Route Start Last Admin Trade Name Freq PRN Reason Stop Dose Admin Albuterol 2.5 mg 07/27/18 14:34 Proventil IH Q3HRT PRN Shortness Of Breath Arformoterol Tartrate 15 mcg 07/28/18 08:00 07/31/18 07:40 Brovana Nebu IH 15 mcg Q12HRT CHRISTOPHER Administration Atorvastatin Calcium 40 mg 07/28/18 10:00 07/30/18 09:06 Lipitor PO 40 mg DAILY CHRISTOPHER Administration Budesonide 0.5 mg 07/28/18 08:00 07/31/18 07:40 Pulmicort IH 0.5 mg Q12HRT CHRISTOPHER Administration Citalopram Hydrobromide 20 mg 07/28/18 10:00 07/30/18 09:06 Celexa PO 20 mg DAILY CHRISTOPHER Administration Dextrose 50 ml 07/27/18 21:05 D50w (25gm) Syringe IV PRN PRN Hypoglycemia Duloxetine HCl 60 mg 07/28/18 10:00 07/30/18 09:05 Cymbalta PO 60 mg DAILY CHRISTOPHER Administration Gabapentin 900 mg 07/27/18 23:45 07/30/18 21:12 Neurontin PO 900 mg BID CHRISTOPHER Administration Ceftriaxone Sodium 1 gm in 50 mls @ 100 mls/hr 07/27/18 14:38 07/30/18 09:07 Rocephin/Ns 1 Gm/50 Ml IV 100 mls/hr Q24HR CHRISTOPHER Administration Protocol Sodium Chloride 500 mls @ 0 mls/hr 07/30/18 15:57 07/30/18 17:26 Nacl 0.9% 500 Ml IV 07/31/18 15:56 50 mls/hr ONCE CHRISTOPHER Administration As Directed Magnesium Sulfate 4 gm in 100 mls @ 25 mls/hr 07/31/18 08:17 Magnesium Sulfate 4gm/100ml IV 07/31/18 12:16 ONCE ONE Insulin Human Regular 0 units 07/27/18 22:00 07/30/18 21:16 Humulin R SUB-Q 3 units ACHS CHRISTOPHER Administration Protocol Lacosamide 50 mg 07/31/18 10:00 Vimpat PO Q12HR CHRISTOPHER Multivitamins 1 each 07/28/18 10:00 07/30/18 09:11 Theragran Tab PO 1 each DAILY CHRISTOPHER Administration Pantoprazole Sodium 40 mg 07/29/18 10:00 07/30/18 21:11 Protonix PO 40 mg BID CHRISTOPHER Administration Potassium Chloride 10 meq 07/28/18 10:00 07/30/18 09:04 K-Dur PO 10 meq DAILY CHRISTOPHER Administration Propranolol HCl 10 mg 07/28/18 08:00 07/30/18 21:12 Inderal PO 10 mg TID CHRISTOPHER Administration Sodium Chloride 10 ml 07/27/18 22:00 07/30/18 21:15 Sodium Chloride Flush Syringe 10 Ml IV 10 ml BID CHRISTOPHER Administration Sodium Chloride 10 ml 07/27/18 14:34 Sodium Chloride Flush Syringe 10 Ml IV PRN PRN LINE FLUSH Venlafaxine HCl 75 mg 07/28/18 10:00 07/30/18 21:12 Effexor PO 75 mg BID CHRISTOPHER Administration Venlafaxine HCl 25 mg 07/28/18 10:00 07/30/18 21:15 Effexor PO 25 mg BID CHRISTOPHER Administration
[2018-07-31] MEDS: ROCEPHIN/NS 1 GM/50 ML 1 GM/50 ML BAG IV SCH (10:31)
[2018-07-31] MEDS: INDERAL PO SCH ×3 (10:33→20:17)
[2018-07-31] MEDS: celeXA PO SCH (10:35)
[2018-07-31] MEDS: CYMBALTA PO SCH (10:36)
[2018-07-31] MEDS: EFFEXOR PO SCH ×4 (10:36→22:16)
[2018-07-31] MEDS: K-DUR PO SCH (10:40)
[2018-07-31] MEDS: PROTONIX PO SCH ×2 (10:40→22:15)
[2018-07-31] MEDS: NEURONTIN PO SCH ×2 (10:40→22:05)
[2018-07-31] MEDS: SODIUM CHLORIDE FLUSH SYRINGE 10 ML IV SCH ×2 (10:41→22:15)
[2018-07-31] MEDS: VIMPAT PO SCH ×2 (10:41→22:15)
[2018-07-31] MEDS: THERAGRAN Tab PO SCH (10:41)
[2018-07-31] MEDS ORDERED: ROXICODONE PO PRN (16:57)
[2018-08-01] MEDS: PULMICORT IH SCH ×2 (05:08→07:32)
[2018-08-01] MEDS: BROVANA NEBU IH SCH ×2 (05:08→07:32)
[2018-08-01 05:11] LABS: Hematocrit 26.8 % (30.3-42.9); Hemoglobin 9.1 gm/dl (10.1-14.3); Mean Corpuscular HGB Conc 34 % (30-34); Mean Corpuscular Volume 83 fl (79-97); Platelet Count 496 K/mm3 (140-440); Red Blood Count 3.23 M/mm3 (3.65-5.03); Red Cell Distribution Width 18.3 % (13.2-15.2)
[2018-08-01 05:30] LABS: BUN/Creatinine Ratio 18; Blood Urea Nitrogen 7 mg/dL (7-17); Hemolysis Index 2
[2018-08-01] MEDS: HumuLIN R SUB-Q SCH ×2 (07:57→11:42)
[2018-08-01] MEDS: INDERAL PO SCH ×2 (08:23→14:45)
--- NOTE | 2018-08-01 09:37 | Progress Note ---
Hospitalist Physical - Constitutional Vitals: Temp Pulse Resp BP Pulse Ox 98.9 F 81 14 152/56 99 08/01/18 08:00 08/01/18 09:00 08/01/18 09:00 08/01/18 08:30 08/01/18 09:00 General appearance: Present: mild distress Results - Labs CBC & Chem 7: 08/01/18 04:43 08/01/18 04:43 Labs: Laboratory Last Values WBC 9.1 K/mm3 (4.5-11.0) 08/01/18 04:43 RBC 3.23 M/mm3 (3.65-5.03) L 08/01/18 04:43 Hgb 9.1 gm/dl (10.1-14.3) L 08/01/18 04:43 Hct 26.8 % (30.3-42.9) L 08/01/18 04:43 MCV 83 fl (79-97) 08/01/18 04:43 MCH 28 pg (28-32) 08/01/18 04:43 MCHC 34 % (30-34) 08/01/18 04:43 RDW 18.3 % (13.2-15.2) H 08/01/18 04:43 Plt Count 496 K/mm3 (140-440) H 08/01/18 04:43 Lymph % (Auto) Hospital Receptionist 07/28/18 04:50 [place] % (Auto) Hospital Receptionist 07/28/18 04:50 Eos % (Auto) Hospital Receptionist 07/28/18 04:50 Baso % (Auto) Hospital Receptionist 07/28/18 04:50 Lymph # Hospital Receptionist 07/28/18 04:50 [place] # Hospital Receptionist 07/28/18 04:50 Eos # Hospital Receptionist 07/28/18 04:50 Baso # Hospital Receptionist 07/28/18 04:50 Add Manual Diff Complete 07/28/18 04:50 Total Counted 100 07/28/18 04:50 Seg Neutrophils % Hospital Receptionist 07/28/18 04:50 Seg Neuts % (Manual) 88.0 % (40.0-70.0) H 07/28/18 04:50 0 % 07/28/18 04:50 7.0 % (13.4-35.0) L 07/28/18 04:50 Reactive Lymphs % (Man) 0 % 07/28/18 04:50 5.0 % (0.0-7.3) 07/28/18 04:50 0 % (0.0-4.3) 07/28/18 04:50 0 % (0.0-1.8) 07/28/18 04:50 0 % 07/28/18 04:50 0 % 07/28/18 04:50 0 % 07/28/18 04:50 0 % 07/28/18 04:50 Nucleated RBC % Not Reportable 07/28/18 04:50 Seg Neutrophils # Hospital Receptionist 07/28/18 04:50 Seg Neutrophils # Man 8.8 K/mm3 (1.8-7.7) H 07/28/18 04:50 Band Neutrophils # 0.0 K/mm3 07/28/18 04:50 0.7 K/mm3 (1.2-5.4) L 07/28/18 04:50 Abs React Lymphs (Man) 0.0 K/mm3 07/28/18 04:50 0.5 K/mm3 (0.0-0.8) 07/28/18 04:50 0.0 K/mm3 (0.0-0.4) 07/28/18 04:50 0.0 K/mm3 (0.0-0.1) 07/28/18 04:50 0.0 K/mm3 07/28/18 04:50 0.0 K/mm3 07/28/18 04:50 0.0 K/mm3 07/28/18 04:50 Blast Cells # 0.0 K/mm3 07/28/18 04:50 WBC Morphology Not Reportable 07/28/18 04:50 Hypersegmented Neuts Not Reportable 07/28/18 04:50 Hyposegmented Neuts Not Reportable 07/28/18 04:50 Hypogranular Neuts Not Reportable 07/28/18 04:50 Not Reportable 07/28/18 04:50 Not Reportable 07/28/18 04:50 Not Reportable 07/28/18 04:50 Not Reportable 07/28/18 04:50 Not Reportable 07/28/18 04:50 Not Reportable 07/28/18 04:50 Consistent w auto 07/28/18 04:50 Not Reportable 07/28/18 04:50 Plt Clumps, EDTA Not Reportable 07/28/18 04:50 Not Reportable 07/28/18 04:50 Not Reportable 07/28/18 04:50 Not Reportable 07/28/18 04:50 Plt Morphology Comment Not Reportable 07/28/18 04:50 RBC Morphology Not Reportable 07/28/18 04:50 Dimorphic RBCs Not Reportable 07/28/18 04:50 Not Reportable 07/28/18 04:50 Not Reportable 07/28/18 04:50 Not Reportable 07/28/18 04:50 1+ 07/28/18 04:50 Not Reportable 07/28/18 04:50 Not Reportable 07/28/18 04:50 Not Reportable 07/28/18 04:50 Not Reportable 07/28/18 04:50 Not Reportable 07/28/18 04:50 Not Reportable 07/28/18 04:50 Not Reportable 07/28/18 04:50 Not Reportable 07/28/18 04:50 Not Reportable 07/28/18 04:50 Not Reportable 07/28/18 04:50 Not Reportable 07/28/18 04:50 Not Reportable 07/28/18 04:50 Not Reportable 07/28/18 04:50 Not Reportable 07/28/18 04:50 Not Reportable 07/28/18 04:50 Acanthocytes (Spur) Not Reportable 07/28/18 04:50 Rouleaux Not Reportable 07/28/18 04:50 Not Reportable 07/28/18 04:50 Not Reportable 07/28/18 04:50 Not Reportable 07/28/18 04:50 Not Reportable 07/28/18 04:50 Hem Pathologist Commnt No 07/28/18 04:50 PT 15.3 Sec. (12.2-14.9) H 07/27/18 13:13 INR 1.14 (0.87-1.13) H 07/27/18 13:13 APTT 26.8 Sec. (24.2-36.6) 07/27/18 13:13 13.7 Sec. (15.1-19.6) L 07/27/18 13:13 Sodium 134 mmol/L (137-145) L 08/01/18 04:43 Potassium 4.1 mmol/L (3.6-5.0) 08/01/18 04:43 Chloride 97.8 mmol/L (98-107) L 08/01/18 04:43 Carbon Dioxide 23 mmol/L (22-30) 08/01/18 04:43 17 mmol/L 08/01/18 04:43 BUN 7 mg/dL (7-17) 08/01/18 04:43 0.4 mg/dL (0.7-1.2) L 08/01/18 04:43 Estimated GFR > 60 ml/min 08/01/18 04:43 18 % 08/01/18 04:43 Glucose 91 mg/dL (65-100) 08/01/18 04:43 POC Glucose 104 (70-105) 08/01/18 07:28 Calcium 8.0 mg/dL (8.4-10.2) L 08/01/18 04:43 Phosphorus 3.50 mg/dL (2.5-4.5) D 07/30/18 06:56 Magnesium 1.40 mg/dL (1.7-2.3) L 07/31/18 05:06 0.20 mg/dL (0.1-1.2) 07/28/18 04:50 < 0.2 mg/dL (0-0.2) 07/27/18 13:53 0.0 mg/dL 07/27/18 13:53 AST 15 units/L (5-40) 07/28/18 04:50 ALT 10 units/L (7-56) 07/28/18 04:50 134 units/L (35-129) H 07/28/18 04:50 221 units/L (30-135) H 07/27/18 13:13 < 0.010 ng/mL (0.00-0.029) 07/27/18 13:13 5.5 g/dL (6.3-8.2) L 07/28/18 04:50 1.8 g/dL (3.9-5) L 07/28/18 04:50 0.5 % 07/28/18 04:50 TSH 1.050 mlU/mL (0.270-4.200) 07/27/18 13:13 Yellow (Yellow) 07/27/18 13:35 Cloudy (Clear) 07/27/18 13:35 6.0 (5.0-7.0) 07/27/18 13:35 Ur Specific [place] 1.006 (1.003-1.030) 07/27/18 13:35 <15 mg/dl mg/dL (Negative) 07/27/18 13:35 Neg mg/dL (Negative) 07/27/18 13:35 Neg mg/dL (Negative) 07/27/18 13:35 Sm (Negative) 07/27/18 13:35 Pos (Negative) 07/27/18 13:35 Neg (Negative) 07/27/18 13:35 < 2.0 mg/dL (<2.0) 07/27/18 13:35 Ur Leukocyte Esterase Lg (Negative) 07/27/18 13:35 > 182.0 /HPF (0.0-6.0) H 07/27/18 13:35 23.0 /HPF (0.0-6.0) 07/27/18 13:35 4+ /HPF (Negative) 07/27/18 13:35 3+ /HPF 07/27/18 13:35 Blood Type A NEGATIVE 07/30/18 13:42 Antibody Screen Negative 07/30/18 13:42 Crossmatch See Detail 07/30/18 13:42 Active Medications - Current Medications Current Medications: Generic Name Dose Route Start Last Admin Trade Name Freq PRN Reason Stop Dose Admin Albuterol 2.5 mg 07/27/18 14:34 Proventil IH Q3HRT PRN Shortness Of Breath Arformoterol Tartrate 15 mcg 07/28/18 08:00 08/01/18 07:32 Brovana Nebu IH 15 mcg Q12HRT CHRISTOPHER Administration Atorvastatin Calcium 40 mg 07/28/18 10:00 07/31/18 10:40 Lipitor PO 40 mg DAILY CHRISTOPHER Administration Budesonide 0.5 mg 07/28/18 08:00 08/01/18 07:32 Pulmicort IH 0.5 mg Q12HRT CHRISTOPHER Administration Citalopram Hydrobromide 20 mg 07/28/18 10:00 07/31/18 10:35 Celexa PO 20 mg DAILY CHRISTOPHER Administration Dextrose 50 ml 07/27/18 21:05 D50w (25gm) Syringe IV PRN PRN Hypoglycemia Duloxetine HCl 60 mg 07/28/18 10:00 07/31/18 10:36 Cymbalta PO 60 mg DAILY CHRISTOPHER Administration Gabapentin 900 mg 07/27/18 23:45 07/31/18 22:05 Neurontin PO 900 mg BID CHRISTOPHER Administration Ceftriaxone Sodium 1 gm in 50 mls @ 100 mls/hr 07/27/18 14:38 07/31/18 10:31 Rocephin/Ns 1 Gm/50 Ml IV 100 mls/hr Q24HR CHRISTOPHER Administration Protocol Insulin Human Regular 0 units 07/27/18 22:00 08/01/18 07:57 Humulin R SUB-Q Not Given ACHS CHRISTOPHER Protocol Lacosamide 50 mg 07/31/18 10:00 07/31/18 22:15 Vimpat PO 50 mg Q12HR CHRISTOPHER Administration Multivitamins 1 each 07/28/18 10:00 07/31/18 10:41 Theragran Tab PO 1 each DAILY CHRISTOPHER Administration Oxycodone HCl 5 mg 07/31/18 16:57 08/01/18 08:23 Roxicodone PO 5 mg Q6H PRN Administration Pain, Moderate (4-6) Pantoprazole Sodium 40 mg 07/29/18 10:00 07/31/18 22:15 Protonix PO 40 mg BID CHRISTOPHER Administration Potassium Chloride 10 meq 07/28/18 10:00 07/31/18 10:40 K-Dur PO 10 meq DAILY CHRISTOPHER Administration Propranolol HCl 10 mg 07/28/18 08:00 08/01/18 08:23 Inderal PO 10 mg TID CHRISTOPHER Administration Sodium Chloride 10 ml 07/27/18 22:00 07/31/18 22:15 Sodium Chloride Flush Syringe 10 Ml IV 10 ml BID CHRISTOPHER Administration Sodium Chloride 10 ml 07/27/18 14:34 Sodium Chloride Flush Syringe 10 Ml IV PRN PRN LINE FLUSH Venlafaxine HCl 75 mg 07/28/18 10:00 07/31/18 22:03 Effexor PO 75 mg BID CHRISTOPHER Administration Venlafaxine HCl 25 mg 07/28/18 10:00 07/31/18 22:16 Effexor PO 25 mg BID CHRISTOPHER Administration
[2018-08-01] MEDS: ROCEPHIN/NS 1 GM/50 ML 1 GM/50 ML BAG IV SCH (09:41)
[2018-08-01] MEDS: SODIUM CHLORIDE FLUSH SYRINGE 10 ML IV SCH (09:42)
[2018-08-01] MEDS: K-DUR PO SCH (09:43)
[2018-08-01] MEDS: NEURONTIN PO SCH (09:43)
[2018-08-01] MEDS: PROTONIX PO SCH (09:44)
[2018-08-01] MEDS: THERAGRAN Tab PO SCH (09:45)
[2018-08-01] MEDS: EFFEXOR PO SCH ×2 (09:46→09:50)
[2018-08-01] MEDS: CYMBALTA PO SCH (09:46)
[2018-08-01] MEDS: VIMPAT PO SCH (09:46)
[2018-08-01] MEDS: celeXA PO SCH (09:46)
--- NOTE | 2018-08-01 14:01 | Discharge Summary ---
Providers - Providers Date of Admission: 07/27/18 14:34 Date of discharge: 08/01/18 Attending physician: CHRISTINA FATIMA 07/27/18 12:28 Consult to Physician [CONS] Urgent Comment: Consulting Provider: MERLIN PADILLA Physician Instructions: Reason For Exam: cva 07/27/18 14:08 Consult to Physician [CONS] Urgent Comment: Consulting Provider: LOUIE SORENSON Physician Instructions: Reason For Exam: lgib 07/27/18 21:04 Consult to Physician [CONS] Routine Comment: Consulting Provider: GLADYS DRIVER Physician Instructions: Reason For Exam: cva 07/29/18 08:29 Occupational Therapy Evaluate and Treat [CONS] Routine Comment: Reason For Exam: stroke Physical Therapy Evaluation and Treat [CONS] Routine Comment: Reason For Exam: stroke Speech Therapy Evaluation and Treat [CONS] Routine Reason For Exam: stroke 07/30/18 19:51 PICC Line Insertion [Consult to PICC Line RN] [CONS] Routine Reason For Exam: IV ACCESS Type Line:: Midline Primary care physician: SENIOR GAMEMASTER Hospitalization Condition: Fair Hospital course: Patient is 68 YO Female with diabetes, COPD, hypertension, CHF, debility presented to ED for evaluation. Pt is confused and is unable to provide detailed history. Pt history taken from medical record, ED staff, and family members. As per family, the patient was in her usual state of health upon waking from sleep around 8030 hrs. Pt was found to have , slurred speech and inability to respond to question. She was brought to ED. A code stroke was called. She was seen and evaluated in ED and found to have symptoms consistent with stroke as well as Encephalopathy, UTI, Acidosis, and heme positive stools and suspicion of GI bleeding complicated by anemia. She was admitted to IMCU and initiated on CVA protocol. Patient was outside window for tPA . Neurology and GI were consulted. MRI ordered but unable to do because she has hardware. She was treated for stroke, acute rehab recommended. This was denied by insurance so was subsequently discharged home with home health on 08/01/2018. Acute ischemic stroke Not given Aspirin because GI bleed Cannot do MRI because of hardware Ct Head no new stroke Encephalopathy Improving Now fully awake,alert GI bleed Serial H/H GI following Conservative management Anemia due to acute GI bleed Transfused 2 Units PRBC UTI Cont Ceftriaxone iv Hyperlipidemia Hypomagnesemia Replace and recheck Hypophosphatemia Replace and recheck Hypokalemia Disposition: [id number] HOME UNDER HOME HLTH - Discharge Diagnoses (1) CVA (cerebral vascular accident) Status: Acute Qualifiers: Precerebral and cerebral artery: unspecified precerebral artery (2) Encephalopathy Status: Acute (3) GI bleed Status: Acute (4) Gastrointestinal hemorrhage with melena Status: Acute (5) Hypokalemia Status: Acute (6) Hypomagnesemia Status: Acute (7) Acute ischemic stroke Status: Acute (8) Hyponatremia Status: Acute (9) Hypomagnesemia Status: Acute Core Measure Documentation - Palliative Care Palliative Care/ Comfort Measures: Not Applicable - Core Measures Any of the following diagnoses?: stroke - Stroke Discharge Requirements Statin for LDL = or >70 mg/dl on DC: Yes Anticoag for atrial fib/atrial flutter: Not Applicable Antithrombotic for ischemic stroke: No Reason for no antithrombotic on DC: Medical Contraindication (GI bleed) Exam - Constitutional Vitals: Temp Pulse Resp BP Pulse Ox 97.5 F L 81 13 136/46 100 08/01/18 12:00 08/01/18 13:00 08/01/18 12:30 08/01/18 12:30 08/01/18 13:00 Plan Activity: advance as tolerated Diet: low fat, low cholesterol, low salt Special Instructions: physical therapy, home health RN Additional Instructions: 1.Follow up with PCP in 3-5 days. 2.Follow up with Dr. Hema Loaiza GI in 3-5 days. 3.Follow up with neurology in 1 week Follow up with: PRIMARY CARE, [Primary Care Provider] - 7 Days Prescriptions: Magnesium Oxide [Mag-Ox] 400 mg PO BID #60 tablet Pantoprazole [Protonix TAB] 40 mg PO BID #60 tablet
[2018-08-01 15:43] VITALS: BP 120/43
== END 2018-08-01 18:02 | disposition home health service (06) | DRG 64 ==
LOC: ED 12:20 → IMCU 14:34
PROVIDERS: ADMIT Internal Medicine; ATTEND Internal Medicine
PROC: 30233N1 Transfusion of Nonautologous Red Blood Cells into Peripheral Vein, Percutaneous Approach (ICD-10-PCS; principal; 2018-07-30)
PROC: 05HY33Z Insertion of Infusion Device into Upper Vein, Percutaneous Approach (ICD-10-PCS; 2018-07-31)
DX: I63.9 Cerebral infarction, unspecified (principal); E43 Unspecified severe protein-calorie malnutrition; K92.2 Gastrointestinal hemorrhage, unspecified; N39.0 Urinary tract infection, site not specified; E87.2 Acidosis; G93.40 Encephalopathy, unspecified; I50.9 Heart failure, unspecified; I65.23 Occlusion and stenosis of bilateral carotid arteries; K21.9 Gastro-esophageal reflux disease without esophagitis; I95.9 Hypotension, unspecified; E87.6 Hypokalemia; E83.42 Hypomagnesemia; E83.39 Other disorders of phosphorus metabolism; E11.9 Type 2 diabetes mellitus without complications; J44.9 Chronic obstructive pulmonary disease, unspecified; I11.0 Hypertensive heart disease with heart failure; Z83.3 Family history of diabetes mellitus; Z82.49 Family history of ischemic heart disease and other diseases of the circulatory system; Z95.1 Presence of aortocoronary bypass graft; Z88.1 Allergy status to other antibiotic agents; Z88.5 Allergy status to narcotic agent; Z88.2 Allergy status to sulfonamides; Z88.8 Allergy status to other drugs, medicaments and biological substances; Z79.899 Other long term (current) drug therapy; Z79.51 Long term (current) use of inhaled steroids; Z79.4 Long term (current) use of insulin
CPT/HCPCS: 36415; 70450; 70470; 71045; 80048; 80053; 80076; 81001; 82271; 82550; 82962; 83735; 84100; 84443; 84484; 85007; 85014; 85018; 85025; 85027; 85610; 85670; 85730; 86850; 86900; 86901; 86920; 87086; 93005; 93010; 93306; 93880; 94640; 95819; 96365; 96367; G0378; A9270-GY; C9113; J0696; J1815; J3475; J3480; J7030; J7040; P9016; Q9967

== ENCOUNTER 2021-05-25 16:23 | Emergency (ER) | payer MEDICARE ==
[2021-05-25] MEDS ORDERED: traMADol 50 MG TAB PO ONE (17:01)
[2021-05-25] MEDS ORDERED: KETOROLAC 30 MG/1 ML INJ IM ONE (17:01)
--- NOTE | 2021-05-25 17:08 | Emergency Department Report ---
ED Fall HPI - General Chief Complaint: Fall Stated Complaint: LEFT HIP PAIN Time Seen by Provider: 05/25/21 16:51 Source: patient, EMS, old records reviewed Mode of arrival: Stretcher - History of Present Illness Initial Comments: Chief complaint: Hip pain after fall HPI: This is a 71-year-old female with history of CHF, COPD, peripheral vascular disease, CVA, GI bleed, left hip replacement who presents with severe left hip pain after ground-level fall. Patient was standing while cooking in the kitchen. She normally uses a motorized wheel chair to maneuver. She slipped and fell without loss of consciousness. No head trauma. She has severe left hip pain. Last week she had 2 stents placed in both extremities to address peripheral vascular disease. 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: no Place Fall Occurred: home Loss of Consciousness: none Prolonged Down Time?: no Symptoms Prior to Fall: none Location: other (Left hip pain) Severity: moderate Severity scale (0 -10): 8 Quality: aching Context: tripped/slipped Associated Symptoms: denies - Related Data Home Medications Medication Instructions Recorded Confirmed Last Taken Potassium Chloride 10 meq PO DAILY 04/23/18 07/27/18 Unknown AtorvaSTATin [Lipitor] 40 mg PO DAILY 07/27/18 07/27/18 Unknown Citalopram [Celexa] 20 mg PO DAILY 07/27/18 07/27/18 Unknown Fluticasone/Salmeterol [Advair 1 puff IH BID 07/27/18 07/27/18 Unknown Diskus 250-50 mcg] Gabapentin 900 mg PO BID 07/27/18 07/27/18 Unknown Multivit-Minerals/Ferrous Gluc 18 mg PO DAILY 07/27/18 07/27/18 Unknown [Multi-Brandi Liquid] Venlafaxine HCl [Venlafaxine] 100 mg PO BID 07/27/18 07/27/18 Unknown glipiZIDE [Glucotrol] 2.5 mg PO DAILY 07/27/18 07/27/18 Unknown propranoloL [Inderal] 10 mg PO TID 07/27/18 07/27/18 Unknown Previous Rx's Medication Instructions Recorded Last Taken Type Duloxetine HCl [Cymbalta] 60 mg PO DAILY #30 capsule. 04/28/18 Unknown Rx Metformin HCl [Glucophage] 1,000 mg PO BID #60 tablet 04/28/18 Unknown Rx Magnesium Oxide [Mag-Ox] 400 mg PO BID #60 tablet 08/01/18 Unknown Rx Pantoprazole [Protonix TAB] 40 mg PO BID #60 tablet 08/01/18 Unknown Rx traMADoL [Ultram 50 MG tab] 50 mg PO Q4HR PRN #20 tablet 05/25/21 Unknown Rx Allergies Allergy/AdvReac Type Severity Reaction Status Date / Time acetaminophen [From Tylenol] Allergy CAUSES Verified 05/25/21 16:48 ISSUE WITH LIVER Antihistamines - Alkylamine Allergy Shortness Verified 05/25/21 16:48 of Breath codeine Allergy Headache Verified 05/25/21 16:48 Penicillins Allergy Angioedema Verified 05/25/21 16:48 Sulfa (Sulfonamide Allergy Rash Verified 05/25/21 16:48 Antibiotics) ANTIBIOTICS Allergy Severe EXTREME Uncoded 05/25/21 16:48 STOMACH PAIN ED Review of Systems ROS: Stated complaint: LEFT HIP PAIN Other details as noted in HPI Comment: All other systems reviewed and negative Constitutional: denies: chills, fever, malaise Respiratory: denies: cough, shortness of breath Cardiovascular: denies: chest pain Gastrointestinal: denies: abdominal pain, nausea, vomiting Neurological: numbness, paresthesias ED Past Medical Hx - Past Medical History Previous Medical History?: Yes Hx Hypertension: Yes Hx Congestive Heart Failure: Yes Hx Diabetes: Yes Hx Deep Vein Thrombosis: No Hx GERD: Yes Hx COPD: Yes Additional medical history: hyperlipidemia - Surgical History Past Surgical History?: Yes Hx Open Heart Surgery: Yes (2014) Hx Pacemaker: No Hx Internal Defibrillator: No Additional Surgical History: Neck surgery, back surgery, stents placed in legs? - Family History Family history: no significant - Social History Smoking Status: Former Smoker Substance Use Type: None - Medications Home Medications: Home Medications Medication Instructions Recorded Confirmed Last Taken Type Potassium Chloride 10 meq PO DAILY 04/23/18 07/27/18 Unknown History Duloxetine HCl [Cymbalta] 60 mg PO DAILY #30 capsule. 04/28/18 07/27/18 Unknown Rx Metformin HCl [Glucophage] 1,000 mg PO BID #60 tablet 04/28/18 07/27/18 Unknown Rx AtorvaSTATin [Lipitor] 40 mg PO DAILY 07/27/18 07/27/18 Unknown History Citalopram [Celexa] 20 mg PO DAILY 07/27/18 07/27/18 Unknown History Fluticasone/Salmeterol [Advair 1 puff IH BID 07/27/18 07/27/18 Unknown History Diskus 250-50 mcg] Gabapentin 900 mg PO BID 07/27/18 07/27/18 Unknown History Multivit-Minerals/Ferrous Gluc 18 mg PO DAILY 07/27/18 07/27/18 Unknown History [Multi-Brandi Liquid] Venlafaxine HCl [Venlafaxine] 100 mg PO BID 07/27/18 07/27/18 Unknown History glipiZIDE [Glucotrol] 2.5 mg PO DAILY 07/27/18 07/27/18 Unknown History propranoloL [Inderal] 10 mg PO TID 07/27/18 07/27/18 Unknown History Magnesium Oxide [Mag-Ox] 400 mg PO BID #60 tablet 08/01/18 Unknown Rx Pantoprazole [Protonix TAB] 40 mg PO BID #60 tablet 08/01/18 Unknown Rx traMADoL [Ultram 50 MG tab] 50 mg PO Q4HR PRN #20 tablet 05/25/21 Unknown Rx ED Physical Exam - General Limitations: No Limitations, Physical Limitation General appearance: alert, in no apparent distress, other (Right decubitus position, no acute distress appears in mild pain) - Head Head exam: Present: atraumatic, normocephalic - Eye Eye exam: Present: normal appearance - ENT ENT exam: Present: mucous membranes moist - Neck Neck exam: Present: normal inspection, full ROM - Respiratory Respiratory exam: Present: normal lung sounds bilaterally. Absent: respiratory distress, wheezes, rales, rhonchi - Cardiovascular Cardiovascular Exam: Present: regular rate, normal rhythm, normal heart sounds. Absent: systolic murmur, diastolic murmur, rubs, gallop - GI/Abdominal GI/Abdominal exam: Present: soft, normal bowel sounds. Absent: distended, tenderness, guarding, rebound - Extremities Exam Extremities exam: Present: pedal edema (Left pedal edema with tenderness and redness previous injury according to patient) - Expanded Lower Extremity Exam Left Hip exam: Present: tenderness. Absent: swelling, abrasion, laceration, ecchymosis, deformity, crepidus, dislocation Upper Leg exam: Present: normal inspection, full ROM Knee exam: Present: normal inspection, full ROM. Absent: tenderness, swelling Lower Leg exam: Present: normal inspection Ankle exam: Present: normal inspection Foot/Toe exam: Present: tenderness, swelling Neuro vascular tendon exam: Present: no vascular compromise (Warm to touch able to wiggle toes full range of motion in the ankle) - Back Exam Back exam: Present: normal inspection - Neurological Exam Neurological exam: Present: alert, oriented X3 - Psychiatric Psychiatric exam: Present: normal affect, normal mood - Skin Skin exam: Present: warm, dry, intact, normal color. Absent: rash ED Course Vital Signs 05/25/21 16:44 Temperature 98.4 F Pulse Rate 70 Respiratory 16 Rate Blood Pressure 184/52 [Left] O2 Sat by Pulse 98 Oximetry ED Medical Decision Making - Radiology Data Radiology results: report reviewed, image reviewed interpreted by me: I personally reviewed the radiographs obtained today. I also reviewed radiology impression. Patient Name: ANTONIO CHASE Gender: Female Date of : 1950 Referring Provider: MIGUELITO GOETZ Organization: [facility] Accession Number: [id number] Requested Date: May 25, 2021 17:04 Report Status: Final Requested Procedure: 1 Procedure Description: XR hip 2-3V LT Modality: XR Findings Reporting MD: Kyle Yates Dictation Time: May 25, 2021 16:35 Supervisor Carpenters: Not available [place] Date: Left hip, 2 views HISTORY: Fall COMPARISON: 07/31/2018. FINDINGS: Revision left hip arthroplasty is present. There is increased lucency along the bone cement interface at the trochanter, measuring up to 5 mm. Additionally, the distal femoral stem is projecting laterally. No discrete cortical erosive changes or fracture. Otherwise, no evidence of hardware complication. Linear lucency extends through the left inferior pubic ramus near the pubic root. The lucency appears to extend beyond the cortex of the bone and is believed to be artifactual. No acute fracture is identified. Right hip is intact. SI joints and pubic symphysis are intact. IMPRESSION: 1. Left hip arthroplasty with increased lucency along the bone-cement interface at the greater trochanter. The distal femoral stem projects laterally without cortical erosive changes or fracture. Findings are suspicious for hardware loosening. 2. No acute fracture identified. Signer Name: Kyle Yates MD Signed: 05/25/2021 4:35 PM Workstation Name: [id number] - Medical Decision Making This 71-year-old female with left hip pain after ground-level fall. Normal physical exam with intact skin. Full range of motion. She appears to have more pain at the left foot which is affected withclaudication which required recent vascular intervention. She also has sores on the foot. Prescribed tramadol. Patient received relief with ketorolac and tramadol in emergency department. I have compared the radiology results from July 31, 2018 and today which are unchanged. Hardware loosening suspected on both exams. I do not suspect acute fracture. Referred to Dr. Hull orthopedic surgeon Critical care attestation.: If time is entered above; I have spent that time in minutes in the direct care of this critically ill patient, excluding procedure time. ED Disposition Clinical Impression: Left hip pain, Contusion of left hip, Fall from ground level Disposition: 01 HOME / SELF CARE / HOMELESS Is pt being admited?: No Does the pt Need Aspirin: No Condition: Stable Instructions: Fall Prevention in the Home, Adult, [id number] Prescriptions: traMADoL [Ultram 50 MG tab] 50 mg PO Q4HR PRN #20 tablet PRN Reason: Pain Referrals: KELLI HULL MD [Staff Physician] - 3-5 Days
--- NOTE | 2021-05-25 17:39 | XRay Report ---
Left hip, 2 views HISTORY: Fall COMPARISON: 07/31/2018. FINDINGS: Revision left hip arthroplasty is present. There is increased lucency along the bone cement interface at the trochanter, measuring up to 5 mm. Additionally, the distal femoral stem is projecting lateral ly. No discrete cortical erosive changes or fracture. Otherwise, no evidence of hardware complication . Linear lucency extends through the left inferior pubic ramus near the pubic root. The lucency appea rs to extend beyond the cortex of the bone and is believed to be artifactual. No acute fracture is id entified. Right hip is intact. SI joints and pubic symphysis are intact. IMPRESSION: 1. Left hip arthroplasty with increased lucency along the bone-cement interface at the greater trocha nter. The distal femoral stem projects laterally without cortical erosive changes or fracture. Findin gs are suspicious for hardware loosening. 2. No acute fracture identified. Signer Name: Kyle Yates MD Signed: 05/25/2021 5:35 PM Workstation Name: [id number]
[2021-05-26 06:45] VITALS: BP 172/51
== END 2021-05-26 09:46 | disposition home or self-care (01) ==
LOC: ED 16:23
DX: S70.02XA Contusion of left hip, initial encounter (principal); I11.0 Hypertensive heart disease with heart failure; I50.9 Heart failure, unspecified; E11.9 Type 2 diabetes mellitus without complications; K21.9 Gastro-esophageal reflux disease without esophagitis; J44.9 Chronic obstructive pulmonary disease, unspecified; Z87.891 Personal history of nicotine dependence; Z88.0 Allergy status to penicillin; Z88.8 Allergy status to other drugs, medicaments and biological substances; Z88.2 Allergy status to sulfonamides; Z88.5 Allergy status to narcotic agent; Z88.6 Allergy status to analgesic agent; Z79.899 Other long term (current) drug therapy; W18.39XA Other fall on same level, initial encounter; Y93.89 Activity, other specified; Y92.89 Other specified places as the place of occurrence of the external cause; Y99.8 Other external cause status
CPT/HCPCS: 73502; 96372; 99284; J1885

== ENCOUNTER 2021-10-04 20:51 | Inpatient (IN) | payer MEDICARE ==
--- NOTE | 2021-10-04 22:23 | Emergency Department Report ---
ED Shortness of Breath HPI - General Chief Complaint: Dyspnea/Respdistress Stated Complaint: RESP DISTRESS Time Seen by Provider: 10/04/21 21:33 Source: EMS Mode of arrival: Stretcher Limitations: No Limitations - History of Present Illness Initial Comments: 71-year-old female with a history of COPD with currently smokes now presents with shortness of breath that started couple of days ago associated with minimally productive cough progressively getting worse. No fever or chills reported. Patient came in with EMS and was given Solu-Medrol, DuoNeb, and magnesium. She reported feeling a little better with the treatment. No other modifying or associated factors reported. MD Complaint: shortness of breath - Related Data Home Medications Medication Instructions Recorded Confirmed Last Taken Potassium Chloride 10 meq PO DAILY 04/23/18 07/27/18 Unknown AtorvaSTATin [Lipitor] 40 mg PO DAILY 07/27/18 07/27/18 Unknown Citalopram [Celexa] 20 mg PO DAILY 07/27/18 07/27/18 Unknown Fluticasone/Salmeterol [Advair 1 puff IH BID 07/27/18 07/27/18 Unknown Diskus 250-50 mcg] Gabapentin 900 mg PO BID 07/27/18 07/27/18 Unknown Multivit-Minerals/Ferrous Gluc 18 mg PO DAILY 07/27/18 07/27/18 Unknown [Multi-Brandi Liquid] Venlafaxine HCl [Venlafaxine] 100 mg PO BID 07/27/18 07/27/18 Unknown glipiZIDE [Glucotrol] 2.5 mg PO DAILY 07/27/18 07/27/18 Unknown propranoloL [Inderal] 10 mg PO TID 07/27/18 07/27/18 Unknown Previous Rx's Medication Instructions Recorded Last Taken Type Duloxetine HCl [Cymbalta] 60 mg PO DAILY #30 capsule. 04/28/18 Unknown Rx Metformin HCl [Glucophage] 1,000 mg PO BID #60 tablet 04/28/18 Unknown Rx Magnesium Oxide [Mag-Ox] 400 mg PO BID #60 tablet 08/01/18 Unknown Rx Pantoprazole [Protonix TAB] 40 mg PO BID #60 tablet 08/01/18 Unknown Rx traMADoL [Ultram 50 MG tab] 50 mg PO Q4HR PRN #20 tablet 05/25/21 Unknown Rx Allergies Allergy/AdvReac Type Severity Reaction Status Date / Time acetaminophen [From Tylenol] Allergy CAUSES Verified 05/25/21 16:48 ISSUE WITH LIVER Antihistamines - Alkylamine Allergy Shortness Verified 05/25/21 16:48 of Breath codeine Allergy Headache Verified 05/25/21 16:48 Penicillins Allergy Angioedema Verified 05/25/21 16:48 Sulfa (Sulfonamide Allergy Rash Verified 05/25/21 16:48 Antibiotics) ANTIBIOTICS Allergy Severe EXTREME Uncoded 05/25/21 16:48 STOMACH PAIN ED Review of Systems ROS: Stated complaint: RESP DISTRESS Other details as noted in HPI Comment: All other systems reviewed and negative Respiratory: cough, shortness of breath, SOB with exertion, wheezing ED Past Medical Hx - Past Medical History Previous Medical History?: Yes Hx Hypertension: Yes Hx Congestive Heart Failure: Yes Hx Diabetes: Yes Hx Deep Vein Thrombosis: No Hx GERD: Yes Hx COPD: Yes Additional medical history: hyperlipidemia - Surgical History Past Surgical History?: Yes Hx Open Heart Surgery: Yes (2014) Hx Pacemaker: No Hx Internal Defibrillator: No Additional Surgical History: Neck surgery, back surgery, stents placed in legs?, L leg amputation - Social History Smoking Status: Current Every Day Smoker Substance Use Type: None - Medications Home Medications: Home Medications Medication Instructions Recorded Confirmed Last Taken Type Potassium Chloride 10 meq PO DAILY 04/23/18 07/27/18 Unknown History Duloxetine HCl [Cymbalta] 60 mg PO DAILY #30 capsule. 04/28/18 07/27/18 Unknown Rx Metformin HCl [Glucophage] 1,000 mg PO BID #60 tablet 04/28/18 07/27/18 Unknown Rx AtorvaSTATin [Lipitor] 40 mg PO DAILY 07/27/18 07/27/18 Unknown History Citalopram [Celexa] 20 mg PO DAILY 07/27/18 07/27/18 Unknown History Fluticasone/Salmeterol [Advair 1 puff IH BID 07/27/18 07/27/18 Unknown History Diskus 250-50 mcg] Gabapentin 900 mg PO BID 07/27/18 07/27/18 Unknown History Multivit-Minerals/Ferrous Gluc 18 mg PO DAILY 07/27/18 07/27/18 Unknown History [Multi-Brandi Liquid] Venlafaxine HCl [Venlafaxine] 100 mg PO BID 07/27/18 07/27/18 Unknown History glipiZIDE [Glucotrol] 2.5 mg PO DAILY 07/27/18 07/27/18 Unknown History propranoloL [Inderal] 10 mg PO TID 07/27/18 07/27/18 Unknown History Magnesium Oxide [Mag-Ox] 400 mg PO BID #60 tablet 08/01/18 Unknown Rx Pantoprazole [Protonix TAB] 40 mg PO BID #60 tablet 08/01/18 Unknown Rx traMADoL [Ultram 50 MG tab] 50 mg PO Q4HR PRN #20 tablet 05/25/21 Unknown Rx ED Physical Exam - General Limitations: No Limitations General appearance: alert, in distress (due to sob ) - Head Head exam: Present: normal inspection - Eye Eye exam: Present: normal appearance Pupils: Present: normal accommodation - ENT ENT exam: Present: normal exam, normal orophraynx - Neck Neck exam: Present: normal inspection, full ROM. Absent: tenderness - Respiratory Respiratory exam: Present: normal lung sounds bilaterally, wheezes. Absent: respiratory distress, accessory muscle use - Cardiovascular Cardiovascular Exam: Present: regular rate, normal rhythm, normal heart sounds - GI/Abdominal GI/Abdominal exam: Present: soft, normal bowel sounds. Absent: distended, tenderness - Extremities Exam Extremities exam: Present: normal inspection, full ROM, normal capillary refill. Absent: pedal edema - Neurological Exam Neurological exam: Present: alert, oriented X3 - Psychiatric Psychiatric exam: Present: normal affect, normal mood - Skin Skin exam: Present: warm, normal color ED Course Vital Signs 10/04/21 10/04/21 10/05/21 21:02 23:27 00:39 Temperature 98.2 F Pulse Rate 98 H 86 80 Respiratory 26 H 22 22 Rate Blood Pressure 60/20 Blood Pressure 120/58 142/55 [Left] O2 Sat by Pulse 100 99 100 Oximetry - Consultations Consultation #1: 10/05/21 00:36 Dr Ponce ED Medical Decision Making - Lab Data Result diagrams: 10/04/21 22:33 10/04/21 22:33 - EKG Data -: EKG Interpreted by [facility] EKG shows normal: sinus rhythm Rate: normal - EKG Data 10/05/21 02:00 Noted with normal sinus rhythm at a rate of 87 bpm, with nonspecific T wave abnormality in this abnormal ECG. - Medical Decision Making Here with shortness of breath--among differential diagnosis could be but not limited to acute exacerbation of COPD, myocardiac infarction, pulmonary e mbolism, acute exacerbation of asthma, pneumothorax, pneumonia or Viral or Bacterial Upper/Lower respiratory tract infection or other systemic infection.--To rule out the above will go ahead and order EKG, cardiac enzyme including troponin, BNP, CKMB, chest x-ray, CBC, CMP, UA and or D-dimer. In the meantime patient reports feeling better after treatment with DuoNeb, 125 mg of Solu-Medrol, magnesium sulfate 2 g IV by the EMS. And will make a case for antibiotics Levaquin considering likely cause to be acute COPD exacerbation and continue to monitor the patient. Lab reviewed and noted with critical low H&H at 5.3/17.6--consistent with acute on chronic anemia that is likely contributing to this patient's dyspnea due to demand --also likely the culprit to the elevated troponin --we will go ahead and order 2 units of packed RBC blood and consider admission Also noted with elevated lactic acid 4.0 with no source of infection so patient already have Levaquin for her likely COPD exacerbation -- will add ivf ns 30 cc/kg and admit patient to the hospitalist. Dr Ponce consulted who accept pt for further evaluation and treatment . With elevated d-dimer -- will get CTA chest to rule out PE-- pending at this time of admission. Dr Ponce is aware and will follow up on the result. Critical care attestation.: If time is entered above; I have spent that time in minutes in the direct care of this critically ill patient, excluding procedure time. ED Disposition Clinical Impression: COPD with exacerbation Anemia Qualifiers: Anemia type: unspecified type Qualified Code(s): D64.9 - Anemia, unspecified Dyspnea Qualifiers: Dyspnea type: unspecified Qualified Code(s): R06.00 - Dyspnea, unspecified Disposition: ADMITTED INPATIENT Is pt being admited?: Yes Does the pt Need Aspirin: No Condition: Stable
--- NOTE | 2021-10-04 22:41 | XRay Report ---
CHEST 1 VIEW 10/04/2021 10:24 PM INDICATION / CLINICAL INFORMATION: Dyspnea. COMPARISON: 07/27/2018 FINDINGS: SUPPORT DEVICES: None. HEART / MEDIASTINUM: Cardiomegaly LUNGS / PLEURA: There is pulmonary vascular indistinctness. There are bibasilar opacities. There is b lunting of bilateral costophrenic angles. No pneumothorax. ADDITIONAL FINDINGS: No significant additional findings. IMPRESSION: 1. Cardiomegaly with pulmonary edema. 2. Bibasilar opacities which may represent atelectasis; however, infectious process should be conside red in the appropriate clinical setting. 3. Bilateral, right greater than left pleural effusions. Signer Name: Jaya Hubbard DO Signed: 10/04/2021 10:37 PM Workstation Name: [id number]
[2021-10-04 23:00] LABS: Mean Corpuscular HGB Conc 30 % (30-34); Mean Corpuscular Volume 84 fl (79-97); Platelet Count 476 K/mm3 (140-440); Red Blood Count 2.09 M/mm3 (3.65-5.03); Red Cell Distribution Width 18.6 % (13.2-15.2)
[2021-10-04 23:09] LABS: INR 1.05 (0.87-1.13)
[2021-10-04 23:10] LABS: Partial Thromboplastin Time 28.2 Sec. (24.2-36.6)
[2021-10-04 23:12] LABS: Alanine Aminotransferase 7 units/L (7-56); Albumin 2.7 g/dL (3.9-5); BUN/Creatinine Ratio 24; Blood Urea Nitrogen 22 mg/dL (7-17); Calcium 8.7 mg/dL (8.4-10.2); Hemolysis Index 3
[2021-10-04 23:19] LABS: Hematocrit 17.6 % (30.3-42.9); Hemoglobin 5.3 gm/dl (10.1-14.3)
[2021-10-04 23:22] LABS: Eosinophils % (Auto) 0.1 % (0.0-4.3); Monocytes # (Auto) 0.4 K/mm3 (0.0-0.8)
[2021-10-04 23:34] LABS: Monocytes % (Manual) 0 % (0.0-7.3); Total Cells Counted 100
[2021-10-04 23:35] LABS: Anisocytosis 1+; Basophils % (Manual) 0 % (0.0-1.8); Eosinophils % (Manual) 0 % (0.0-4.3); Hypochromasia 1+; Platelet Estimate Consistent w Auto
[2021-10-04 23:36] LABS: Chol/HDL Ratio 2.95 %; HDL Cholesterol 42 mg/dL (40-59); LDL Cholesterol,Direct 56 mg/dL (50-130)
[2021-10-05] MEDS ORDERED: SODIUM CHLORIDE 0.9% 1000 ML 1,000 ML IV ONE
[2021-10-05] MEDS ORDERED: SODIUM CHLORIDE 0.9% 500 ML 500 ML IV ONE (00:02)
[2021-10-05] MEDS ORDERED: ONDANSETRON 4 MG/2 ML INJ IV PRN (01:13)
[2021-10-05] MEDS ORDERED: MORPHINE 4 MG/1 ML INJ IV PRN (01:13)
[2021-10-05] MEDS ORDERED: ACETAMINOPHEN 325 MG TAB PO PRN (01:13)
[2021-10-05] MEDS ORDERED: ALBUTEROL 2.5 MG/3 ML NEBU IH PRN (01:13)
[2021-10-05] MEDS ORDERED: MORPHINE 2 MG/1 ML INJ IV PRN (01:13)
--- NOTE | 2021-10-05 01:24 | History and Physical Report ---
History of Present Illness Date of examination: 10/05/21 Date of admission: 10/05/21 Chief complaint: Dyspnea Respiratory distress History of present illness: 71-year-old female with a history of COPD and tobacco abuse was brought to the emergency room because shortness of breath that started couple of days ago associated with minimally productive cough progressively getting worse. No fever or chills reported. Patient came in with EMS and was given Solu-Medrol, DuoNeb, and magnesium. She reported feeling a little better with the treatment. No other modifying or associated factors reported. In the emergency room patient is found to have a hemoglobin of 5.3, hematocrit 17.6, lactic acid 4.00, glucose 303, troponin 0.101, chest x-ray shows cardiomegaly with pulmonary edema. Bibasilar opacities which may represent atelectasis however infectious process should be considered in the appropriate clinical setting. Bilateral right greater than left pleural effusion Past History Past Medical History: COPD, diabetes, GERD, heart failure, hypertension, hyperlipidemia Past Surgical History: CABG, Other (Neck surgery, back surgery, stents placed in legs?, L leg amputation) Social history: smoking Family history: hypertension Medications and Allergies Allergies Allergy/AdvReac Type Severity Reaction Status Date / Time acetaminophen [From Tylenol] Allergy CAUSES Verified 05/25/21 16:48 ISSUE WITH LIVER Antihistamines - Alkylamine Allergy Shortness Verified 05/25/21 16:48 of Breath codeine Allergy Headache Verified 05/25/21 16:48 Penicillins Allergy Angioedema Verified 05/25/21 16:48 Sulfa (Sulfonamide Allergy Rash Verified 05/25/21 16:48 Antibiotics) ANTIBIOTICS Allergy Severe EXTREME Uncoded 05/25/21 16:48 STOMACH PAIN Home Medications Medication Instructions Recorded Confirmed Last Taken Type Potassium Chloride 10 meq PO DAILY 04/23/18 07/27/18 Unknown History Duloxetine HCl [Cymbalta] 60 mg PO DAILY #30 capsule. 04/28/18 07/27/18 Unknown Rx Metformin HCl [Glucophage] 1,000 mg PO BID #60 tablet 04/28/18 07/27/18 Unknown Rx AtorvaSTATin [Lipitor] 40 mg PO DAILY 07/27/18 07/27/18 Unknown History Citalopram [Celexa] 20 mg PO DAILY 07/27/18 07/27/18 Unknown History Fluticasone/Salmeterol [Advair 1 puff IH BID 07/27/18 07/27/18 Unknown History Diskus 250-50 mcg] Gabapentin 900 mg PO BID 07/27/18 07/27/18 Unknown History Multivit-Minerals/Ferrous Gluc 18 mg PO DAILY 07/27/18 07/27/18 Unknown History [Multi-Brandi Liquid] Venlafaxine HCl [Venlafaxine] 100 mg PO BID 07/27/18 07/27/18 Unknown History glipiZIDE [Glucotrol] 2.5 mg PO DAILY 07/27/18 07/27/18 Unknown History propranoloL [Inderal] 10 mg PO TID 07/27/18 07/27/18 Unknown History Magnesium Oxide [Mag-Ox] 400 mg PO BID #60 tablet 08/01/18 Unknown Rx Pantoprazole [Protonix TAB] 40 mg PO BID #60 tablet 08/01/18 Unknown Rx traMADoL [Ultram 50 MG tab] 50 mg PO Q4HR PRN #20 tablet 05/25/21 Unknown Rx Active Meds: Active Medications Acetaminophen (Acetaminophen 325 Mg Tab) 650 mg PO Q4H PRN PRN Reason: Pain MILD(1-3)/Fever >100.5/FAULKNER Albuterol (Albuterol 2.5 Mg/3 Ml Nebu) 2.5 mg IH Q3HRT PRN PRN Reason: Shortness Of Breath Albuterol/Ipratropium (Ipratropium/Albuterol Sulfate 3 Ml Ampul.Neb) 1 ampul IH Q6HRT [facility] Atorvastatin Calcium (Atorvastatin 40 Mg Tab) 40 mg PO DAILY [facility] Citalopram Hydrobromide (Citalopram 20 Mg Tab) 20 mg PO DAILY [facility] Furosemide (Furosemide 40 Mg/4 Ml Inj) 40 mg IV ONCE ONE Stop: 10/05/21 01:20 Gabapentin (Gabapentin 300 Mg Cap) 900 mg PO BID [facility] Levofloxacin/Dextrose (Levaquin 750mg/150ml) 750 mg in 150 mls @ 100 mls/hr IV Q24H CHRISTOPHER; Protocol Methylprednisolone Sodium Succinate (Methylprednisolone Sod Succinate 40 Mg/1 Ml Inj) 40 mg IV Q12HR [facility] Miscellaneous Medication (Fluticasone/Salmeterol [Advair Diskus 250-50 Mcg]) 1 puff IH BID [facility] Miscellaneous Medication (Potassium Chloride [Potassium Chloride]) 10 meq PO DAILY [facility] Montelukast Sodium (Montelukast 10 Mg Tab) 10 mg PO QHS [facility] Morphine Sulfate (Morphine 2 Mg/1 Ml Inj) 2 mg IV Q4H PRN PRN Reason: Pain, Moderate (4-6) Morphine Sulfate (Morphine 4 Mg/1 Ml Inj) 4 mg IV Q4H PRN PRN Reason: Pain , Severe (7-10) Ondansetron HCl (Ondansetron 4 Mg/2 Ml Inj) 4 mg IV Q8H PRN PRN Reason: Nausea And Vomiting Pantoprazole Sodium (Pantoprazole 40 Mg Tab) 40 mg PO BID [facility] Propranolol HCl (Propranolol 10 Mg Tab) 10 mg PO TID CHRISTOPHER Sodium Chloride (Sodium Chloride 0.9% 10 Ml Flush Syringe) 10 ml IV BID CHRISTOPHER Sodium Chloride (Sodium Chloride 0.9% 10 Ml Flush Syringe) 10 ml IV PRN PRN PRN Reason: LINE FLUSH Review of Systems All systems: negative Constitutional: fatigue, malaise Cardiovascular: shortness of breath, dyspnea on exertion Respiratory: shortness of breath, dyspnea on exertion Exam - Constitutional Vitals: Temp Pulse Resp BP Pulse Ox 98.2 F 80 22 142/55 100 10/04/21 21:02 10/05/21 00:39 10/05/21 00:39 10/05/21 00:39 10/05/21 00:39 General appearance: Present: no acute distress, well-nourished - EENT Eyes: Present: PERRL ENT: hearing intact, clear oral mucosa - Neck Neck: Present: supple, normal ROM - Respiratory Respiratory effort: normal Respiratory: bilateral: rales - Cardiovascular Heart Sounds: Present: S1 & S2. Absent: rub, click - Extremities Extremities: pulses symmetrical, No edema Peripheral Pulses: within normal limits - Abdominal General gastrointestinal: Present: soft, non-tender, non-distended, normal bowel sounds Female genitourinary: Present: normal - Integumentary Integumentary: Present: clear, warm, dry - Musculoskeletal Musculoskeletal: gait normal, strength equal bilaterally - Psychiatric Psychiatric: appropriate mood/affect, intact judgment & insight - Neurologic Neurologic: CNII-XII intact, moves all extremities HEART Score - HEART Score Troponin: Troponin T 0.101 ng/mL (0.00-0.029) H* 10/04/21 22:33 Results - Labs CBC & Chem 7: 10/04/21 22:33 10/04/21 22:33 Labs: Laboratory Last Values WBC 10.9 K/mm3 (4.5-11.0) 10/04/21: RBC 2.09 M/mm3 (3.65-5.03) L 10/04/21 22: Hgb 5.3 gm/dl (10.1-14.3) L* 10/04/21: Hct 17.6 % (30.3-42.9) L* 10/04/21: MCV 84 fl (79-97) 10/04/21 22: MCH 25 pg (28-32) L 10/04/21: MCHC 30 % (30-34) 10/04/21: RDW 18.6 % (13.2-15.2) H 10/04/21: Plt Count 476 K/mm3 (140-440) H 10/04/21: [place] % (Auto) 3.0 % (0.0-7.3) 10/04/21: Eos % (Auto) 0.1 % (0.0-4.3) 10/04/21: [place] # (Auto) 0.4 K/mm3 (0.0-0.8) 10/04/21 22: Eos # (Auto) 0.0 K/mm3 (0.0-0.4) 10/04/21 22: Baso # (Auto) 0.0 K/mm3 (0.0-0.1) 10/04/21: Add Manual Diff Complete 10/04/21 22: Total Counted 100 10/04/21: Seg Neuts % (Manual) 97.0 % (40.0-70.0) H 10/04/21: Band Neutrophils % 0 % 10/04/21: Lymphocytes % (Manual) 3.0 % (13.4-35.0) L 10/04/21 22: Reactive Lymphs % (Man) 0 % 10/04/21 22: Monocytes % (Manual) 0 % (0.0-7.3) 10/04/21 22:33 Eosinophils % (Manual) 0 % (0.0-4.3) 10/04/21 22:33 Basophils % (Manual) 0 % (0.0-1.8) 10/04/21 22:33 Metamyelocytes % 0 % 10/04/21 22:33 Myelocytes % 0 % 10/04/21 22:33 Promyelocytes % 0 % 10/04/21 22:33 Blast Cells % 0 % 10/04/21 22:33 Nucleated RBC % Not Reportable 10/04/21 22:33 Seg Neutrophils # 10.8 K/mm3 (1.8-7.7) H 10/04/21 22:33 Seg Neutrophils # Man 10.6 K/mm3 (1.8-7.7) H 10/04/21 22:33 Band Neutrophils # 0.0 K/mm3 10/04/21 22:33 Lymphocytes # (Manual) 0.3 K/mm3 (1.2-5.4) L 10/04/21 22:33 Abs React Lymphs (Man) 0.0 K/mm3 10/04/21 22:33 Monocytes # (Manual) 0.0 K/mm3 (0.0-0.8) 10/04/21 22:33 Eosinophils # (Manual) 0.0 K/mm3 (0.0-0.4) 10/04/21 22:33 Basophils # (Manual) 0.0 K/mm3 (0.0-0.1) 10/04/21 22:33 Metamyelocytes # 0.0 K/mm3 10/04/21 22:33 Myelocytes # 0.0 K/mm3 10/04/21 22:33 Promyelocytes # 0.0 K/mm3 10/04/21 22:33 Blast Cells # 0.0 K/mm3 10/04/21 22:33 WBC Morphology Not Reportable 10/04/21 22:33 Hypersegmented Neuts Not Reportable 10/04/21 22:33 Hyposegmented Neuts Not Reportable 10/04/21 22:33 Hypogranular Neuts Not Reportable 10/04/21 22:33 Smudge Cells Not Reportable 10/04/21 22:33 Toxic Granulation Not Reportable 10/04/21 22:33 Toxic Vacuolation Not Reportable 10/04/21 22:33 Dohle Bodies Not Reportable 10/04/21 22:33 Pelger-Huet Anomaly Not Reportable 10/04/21 22:33 Mery Rods Not Reportable 10/04/21 22:33 Platelet Estimate Consistent w auto 10/04/21 22:33 Clumped Platelets Not Reportable 10/04/21 22:33 Plt Clumps, EDTA Not Reportable 10/04/21 22:33 Large Platelets Not Reportable 10/04/21 22:33 Giant Platelets Not Reportable 10/04/21 22:33 Platelet Satelliting Not Reportable 10/04/21 22:33 Plt Morphology Comment Not Reportable 10/04/21 22:33 RBC Morphology Not Reportable 10/04/21 22:33 Dimorphic RBCs Not Reportable 10/04/21 22:33 Polychromasia Not Reportable 10/04/21 22:33 Hypochromasia 1+ 10/04/21 22:33 Poikilocytosis Not Reportable 10/04/21 22:33 Anisocytosis 1+ 10/04/21 22:33 Microcytosis Not Reportable 10/04/21 22:33 Macrocytosis Not Reportable 10/04/21 22:33 Spherocytes Not Reportable 10/04/21 22:33 Pappenheimer Bodies Not Reportable 10/04/21 22:33 Sickle Cells Not Reportable 10/04/21 22:33 Target Cells Not Reportable 10/04/21 22:33 Tear Drop Cells Not Reportable 10/04/21 22:33 Ovalocytes Not Reportable 10/04/21 22:33 Helmet Cells Not Reportable 10/04/21 22:33 [place] Bodies Not Reportable 10/04/21 22:33 [place] Rings Not Reportable 10/04/21 22:33 [place] Cells Not Reportable 10/04/21 22:33 Bite Cells Not Reportable 10/04/21 22:33 Crenated Cell Not Reportable 10/04/21 22:33 Elliptocytes Not Reportable 10/04/21 22:33 Acanthocytes (Spur) Not Reportable 10/04/21 22:33 Rouleaux Not Reportable 10/04/21 22:33 Hemoglobin C Crystals Not Reportable 10/04/21 22:33 Schistocytes Not Reportable 10/04/21 22:33 Malaria parasites Not Reportable 10/04/21 22:33 Jonah Bodies Not Reportable 10/04/21 22:33 Hem Pathologist Commnt No 10/04/21 22:33 PT 14.9 Sec. (12.2-14.9) 10/04/21 22:33 INR 1.05 (0.87-1.13) 10/04/21 22:33 APTT 28.2 Sec. (24.2-36.6) 10/04/21 22:33 D-Dimer 1435.30 ng/mlDDU (0-234) H 10/04/21 22:33 Sodium 132 mmol/L (137-145) L 10/04/21 22:33 Potassium 4.7 mmol/L (3.6-5.0) 10/04/21 22:33 Chloride 96.9 mmol/L (98-107) L 10/04/21 22:33 Carbon Dioxide 19 mmol/L (22-30) L 10/04/21 22:33 Anion Gap 21 mmol/L 10/04/21 22:33 BUN 22 mg/dL (7-17) H 10/04/21 22:33 Creatinine 0.9 mg/dL (0.6-1.2) 10/04/21 22:33 Estimated GFR > 60 ml/min 10/04/21 22:33 BUN/Creatinine Ratio 24 % 10/04/21 22:33 Glucose 303 mg/dL (65-100) H 10/04/21 22:33 Lactic Acid 4.00 mmol/L (0.7-2.0) H* 10/04/21 22:33 Calcium 8.7 mg/dL (8.4-10.2) 10/04/21 22:33 Total Bilirubin 0.20 mg/dL (0.1-1.2) 10/04/21 22:33 AST 20 units/L (5-40) 10/04/21 22:33 ALT 7 units/L (7-56) 10/04/21 22:33 Alkaline Phosphatase 97 units/L (35-129) 10/04/21 22:33 Troponin T 0.101 ng/mL (0.00-0.029) H* 10/04/21 22:33 Total Protein 6.1 g/dL (6.3-8.2) L 10/04/21 22:33 Albumin 2.7 g/dL (3.9-5) L 10/04/21 22:33 Albumin/Globulin Ratio 0.8 % 10/04/21 22:33 Triglycerides 145 mg/dL (2-149) 10/04/21 22:33 Cholesterol 124 mg/dL (50-199) 10/04/21 22:33 LDL Cholesterol Direct 56 mg/dL (50-130) 10/04/21 22:33 HDL Cholesterol 42 mg/dL (40-59) 10/04/21 22:33 Cholesterol/HDL Ratio 2.95 % 10/04/21 22:33 - Imaging and Cardiology Chest x-ray: report reviewed Assessment and Plan VTE prophylaxis?: Mechanical Plan of care discussed with patient/family: Yes - Patient Problems (1) COPD with exacerbation Current Visit: Yes Status: Acute Plan to address problem: Admit the patient to the medical telemetry. Oxygen per nasal cannula 3 L/min. DuoNeb nebulizer every 4 hours. Albuterol by nebulizer every 4 hours as needed. Solu-Medrol 40 mg IV every 12 hours. We continue the home medication (2) Pulmonary edema Current Visit: Yes Status: Acute Plan to address problem: Lasix 40 mg IV x1 dose. Serial cardiac enzyme. Echocardiogram. Cardiology evaluation (3) Elevated troponin Current Visit: Yes Status: Acute Plan to address problem: Most likely secondary to demand ischemia secondary to anemia. Serial cardiac enzyme. Echocardiogram. Cardiology evaluation (4) Anemia Current Visit: Yes Status: Acute Qualifiers: Anemia type: unspecified type Qualified Code(s): D64.9 - Anemia, unspecified Plan to address problem: Transfused 2 unit of packed red blood cell. Protonix 40 mg p.o. twice daily. Consult GI for evaluation for possible GI bleeding (5) CVA (cerebral vascular accident) Current Visit: No Status: Acute Plan to address problem: Stable. We will continue the home medication (6) Lactic acidosis Current Visit: Yes Status: Acute Plan to address problem: Levaquin 750 mg IV daily. We will do the blood culture. Repeat the lactic acid (7) DVT prophylaxis Current Visit: No Status: Acute Plan to address problem: SCD for DVT prophylaxis. Protonix 40 mg p.o. twice daily for GI prophylaxis. Patient is a full code
[2021-10-05] MEDS ORDERED: FUROSEMIDE 40 MG/4 ML INJ IV ONE (01:39)
--- NOTE | 2021-10-05 01:42 | Cat Scan Report ---
CTA CHEST WITH CONTRAST INDICATION / CLINICAL INFORMATION: elevated d-dimer with sob. TECHNIQUE: Axial CT images were obtained through the chest after injection of 100 cc Omnipaque 350 IV contrast. 3 plane MIP and/or 3D reconstructions were produced. All CT scans at this location are per formed using CT dose reduction for ALARA by means of automated exposure control. COMPARISON: CTA chest 05/20/2018 FINDINGS: VASCULAR FINDINGS: PULMONARY ARTERY: Left and right pulmonary arteries appear upper limits of normal in size to minimall y enlarged. This finding is nonspecific but suggests a component of pulmonary arterial hypertension. No filling defects compatible with pulmonary artery embolus is demonstrated.. THORACIC AORTA: Severe atherosclerotic calcification without acute abnormality. The right carotid art pamela is not well opacified. High-grade stenosis at the vessel origin is suggested and occlusion cannot be entirely excluded. CORONARY ARTERY CALCIFICATION: Not evaluable -- CABG. NONVASCULAR FINDINGS: LOWER NECK: Soft tissues and musculature of the lower neck demonstrate no significant abnormality. Th e thyroid demonstrates no significant abnormality. HEART: No significant abnormality. MEDIASTINUM / JANIS: No significant abnormality. ESOPHAGUS: No significant abnormality. LYMPH NODES: Borderline to minimally enlarged right paratracheal lymph nodes. Borderline prevascular lymph nodes. LUNGS/PLEURA: The lungs bilaterally demonstrate multiple foci of groundglass attenuation as well as s moothly thickened interlobular septal lines. Small dependent pleural effusions and passive atelectasi s of the lower lobes additionally is demonstrated. Pleural fluid is loculated within the left major f issure to a lesser degree the right major fissure. THORACIC SOFT TISSUES: No significant abnormality of the chest wall or upper thoracic musculature. BONES: Remote lateral fracture left eighth rib. ADDITIONAL CHEST FINDINGS: Asymmetric breast tissue right breast. UPPER ABDOMEN: No significant abnormality. IMPRESSION: 1. No CT evidence for pulmonary embolism. 2. Bilateral areas of lung attenuation and smoothly thickened septal lines with bilateral pleural eff usions suggests pulmonary edema, infectious process not excluded. 3. High-grade stenosis of the right common carotid artery origin, occlusion of the right carotid is n ot excluded. Signer Name: Marcus Peoples II, MD Signed: 10/05/2021 1:38 AM Workstation Name: [id number]
[2021-10-05] MEDS ORDERED: IPRATROPIUM/ALBUTEROL SULFATE 3 ML AMPUL.NEB IH SCH (02:00)
[2021-10-05] MEDS: BUDESONIDE 0.5 MG/2 ML NEBU IH SCH ×2 (08:21→20:16)
[2021-10-05] MEDS: ARFORMOTEROL 15 MCG/2 ML NEBU IH SCH ×2 (08:21→20:16)
[2021-10-05] MEDS: IPRATROPIUM/ALBUTEROL SULFATE 3 ML AMPUL.NEB IH SCH ×3 (08:21→20:17)
--- NOTE | 2021-10-05 09:01 | Gastroenterology Consultation ---
<KAREY GASPAR - Last Filed: 10/05/21 10:14> History of Present Illness - Reason for Consult Consult date: 10/05/21 anemia - History of Present Illness Ms. Chavis is a 71 y/o F w/ PMHx significant for HTN, DM, COPD (current smoker), anemia, duodenal ulcers, s/p triple bypass and L leg amputation, who GI has been consulted on for anemia. Pt states that she come to [facility] ED d/t SOB. In the ED, pt was found to have a hemoglobin of 5.3 and hematocrit of 17.6. x2 units ordered and second currently hanging. Awaiting new labs post transfusion. Denies hematemesis, coffee ground emesis, melena, or hematochezia. Reports umbilical abd pain, but states it is not new. Pt known to [facility], last EGD 06/13/15 at [facility] revealed multiple small ulcers in the third portion of the duodenum with patchy inflammation. Bleeding from either small AVM or ulcer in the third portion of the duodenum. Mild patchy antral gastritis. Biopsy revealed mild active duodenitis with superficial erosion. Pt is unsure if this is her most recent EGD, but states she has been admitted at [facility] multiple times and required blood transfusions almost daily. Per [place] chart review, last admission was 06/06/21-06/15/21, during this admission pt had L leg amputation d/t severe atherosclerosis and ulceration of foot w/ gangrene. CBC 06/21/21 revealed H/H 7.5/22.6 and pt appears to have baseline hemoglobin ~7-8 over the past x3 years. EGD 10/17/14: unremarkable Colonoscopy 10/17/14: hot snare polypectomy as well as APC. Ascending, descending and sigmoid colon polyps removed w/ hot snare. External hemorrhoids. Pathology revealed: ascending polypectomy: tubular adenoma, descending and sigmoid polypectomy hyperplastic polyps. Past History Past Medical History: COPD, diabetes, GERD, heart failure, hypertension, hyperlipidemia Past Surgical History: CABG, Other (Neck surgery, back surgery, stents placed in legs?, L leg amputation) Social history: smoking Family history: hypertension Medications and Allergies Allergies Allergy/AdvReac Type Severity Reaction Status Date / Time acetaminophen [From Tylenol] Allergy CAUSES Verified 05/25/21 16:48 ISSUE WITH LIVER Antihistamines - Alkylamine Allergy Shortness Verified 05/25/21 16:48 of Breath codeine Allergy Headache Verified 05/25/21 16:48 Penicillins Allergy Angioedema Verified 05/25/21 16:48 Sulfa (Sulfonamide Allergy Rash Verified 05/25/21 16:48 Antibiotics) ANTIBIOTICS Allergy Severe EXTREME Uncoded 05/25/21 16:48 STOMACH PAIN Home Medications Medication Instructions Recorded Confirmed Last Taken Type Potassium Chloride 10 meq PO DAILY 04/23/18 07/27/18 Unknown History Duloxetine HCl [Cymbalta] 60 mg PO DAILY #30 capsule. 04/28/18 07/27/18 Unknown Rx Metformin HCl [Glucophage] 1,000 mg PO BID #60 tablet 04/28/18 07/27/18 Unknown Rx AtorvaSTATin [Lipitor] 40 mg PO DAILY 07/27/18 07/27/18 Unknown History Citalopram [Celexa] 20 mg PO DAILY 07/27/18 07/27/18 Unknown History Fluticasone/Salmeterol [Advair 1 puff IH BID 07/27/18 07/27/18 Unknown History Diskus 250-50 mcg] Gabapentin 900 mg PO BID 07/27/18 07/27/18 Unknown History Multivit-Minerals/Ferrous Gluc 18 mg PO DAILY 07/27/18 07/27/18 Unknown History [Multi-Brandi Liquid] Venlafaxine HCl [Venlafaxine] 100 mg PO BID 07/27/18 07/27/18 Unknown History glipiZIDE [Glucotrol] 2.5 mg PO DAILY 07/27/18 07/27/18 Unknown History propranoloL [Inderal] 10 mg PO TID 07/27/18 07/27/18 Unknown History Magnesium Oxide [Mag-Ox] 400 mg PO BID #60 tablet 08/01/18 Unknown Rx Pantoprazole [Protonix TAB] 40 mg PO BID #60 tablet 08/01/18 Unknown Rx traMADoL [Ultram 50 MG tab] 50 mg PO Q4HR PRN #20 tablet 05/25/21 Unknown Rx Active Meds: Active Medications Albuterol (Albuterol 2.5 Mg/3 Ml Nebu) 2.5 mg IH Q3HRT PRN PRN Reason: Shortness Of Breath Albuterol/Ipratropium (Ipratropium/Albuterol Sulfate 3 Ml Ampul.Neb) 1 ampul IH Q6HRT [facility] Last Admin: 10/05/21 08:21 Dose: 1 ampul Arformoterol Tartrate (Arformoterol 15 Mcg/2 Ml Nebu) 15 mcg IH Q12HRT [facility] Last Admin: 10/05/21 08:21 Dose: 15 mcg Atorvastatin Calcium (Atorvastatin 40 Mg Tab) 40 mg PO DAILY [facility] Budesonide (Budesonide 0.5 Mg/2 Ml Nebu) 0.5 mg IH Q12HRT [facility] Last Admin: 10/05/21 08:21 Dose: 0.5 mg Citalopram Hydrobromide (Citalopram 20 Mg Tab) 20 mg PO DAILY [facility] Gabapentin (Gabapentin 300 Mg Cap) 900 mg PO BID [facility] Levofloxacin/Dextrose (Levaquin 750mg/150ml) 750 mg in 150 mls @ 100 mls/hr IV Q24HR [facility]; Protocol Methylprednisolone Sodium Succinate (Methylprednisolone Sod Succinate 40 Mg/1 Ml Inj) 40 mg IV Q12HR [facility] Montelukast Sodium (Montelukast 10 Mg Tab) 10 mg PO QHS [facility] Morphine Sulfate (Morphine 2 Mg/1 Ml Inj) 2 mg IV Q4H PRN PRN Reason: Pain, Moderate (4-6) Morphine Sulfate (Morphine 4 Mg/1 Ml Inj) 4 mg IV Q4H PRN PRN Reason: Pain , Severe (7-10) Ondansetron HCl (Ondansetron 4 Mg/2 Ml Inj) 4 mg IV Q8H PRN PRN Reason: Nausea And Vomiting Pantoprazole Sodium (Pantoprazole 40 Mg Tab) 40 mg PO BID [facility] Potassium Chloride (Potassium Chloride Er 10 Meq Tab) 10 meq PO DAILY [facility] Propranolol HCl (Propranolol 10 Mg Tab) 10 mg PO TID [facility] Sodium Chloride (Sodium Chloride 0.9% 10 Ml Flush Syringe) 10 ml IV BID [facility] Sodium Chloride (Sodium Chloride 0.9% 10 Ml Flush Syringe) 10 ml IV PRN PRN PRN Reason: LINE FLUSH Review of Systems - Review of Systems Cardiovascular: shortness of breath Gastrointestinal: abdominal pain Exam - Constitutional Vital Signs: Temp Pulse Resp BP Pulse Ox 97.8 F 99 H 16 150/59 97 10/05/21 06:32 10/05/21 08:21 10/05/21 08:21 10/05/21 06:32 10/05/21 08:48 General appearance: no acute distress - EENT ENT: hearing intact - Gastrointestinal General gastrointestinal: Present: soft, non-tender, non-distended - Neurologic Neurological: alert and oriented x3 - Labs CBC & Chem 7: 10/04/21 22:33 10/04/21 22:33 Lab Results: Laboratory Results - last 24 hr 10/04/21 10/04/21 10/04/21 22:33 22:33 22:33 WBC 10.9 RBC 2.09 L Hgb 5.3 L* Hct 17.6 L* MCV 84 MCH 25 L MCHC 30 RDW 18.6 H Plt Count 476 H [place] % (Auto) 3.0 Eos % (Auto) 0.1 [place] # (Auto) 0.4 Eos # (Auto) 0.0 Baso # (Auto) 0.0 Add Manual Diff Complete Total Counted 100 Seg Neuts % (Manual) 97.0 H Band Neutrophils % 0 Lymphocytes % (Manual) 3.0 L Reactive Lymphs % (Man) 0 Monocytes % (Manual) 0 Eosinophils % (Manual) 0 Basophils % (Manual) 0 Metamyelocytes % 0 Myelocytes % 0 Promyelocytes % 0 Blast Cells % 0 Nucleated RBC % Not Reportable Seg Neutrophils # 10.8 H Seg Neutrophils # Man 10.6 H Band Neutrophils # 0.0 Lymphocytes # (Manual) 0.3 L Abs React Lymphs (Man) 0.0 Monocytes # (Manual) 0.0 Eosinophils # (Manual) 0.0 Basophils # (Manual) 0.0 Metamyelocytes # 0.0 Myelocytes # 0.0 Promyelocytes # 0.0 Blast Cells # 0.0 WBC Morphology Not Reportable Hypersegmented Neuts Not Reportable Hyposegmented Neuts Not Reportable Hypogranular Neuts Not Reportable Smudge Cells Not Reportable Toxic Granulation Not Reportable Toxic Vacuolation Not Reportable Dohle Bodies Not Reportable Pelger-Huet Anomaly Not Reportable Mery Rods Not Reportable Platelet Estimate Consistent w auto Clumped Platelets Not Reportable Plt Clumps, EDTA Not Reportable Large Platelets Not Reportable Giant Platelets Not Reportable Platelet Satelliting Not Reportable Plt Morphology Comment Not Reportable RBC Morphology Not Reportable Dimorphic RBCs Not Reportable Polychromasia Not Reportable Hypochromasia 1+ Poikilocytosis Not Reportable Anisocytosis 1+ Microcytosis Not Reportable Macrocytosis Not Reportable Spherocytes Not Reportable Pappenheimer Bodies Not Reportable Sickle Cells Not Reportable Target Cells Not Reportable Tear Drop Cells Not Reportable Ovalocytes Not Reportable Helmet Cells Not Reportable [place] Bodies Not Reportable Lejunior Rings Not Reportable [place] Cells Not Reportable Bite Cells Not Reportable Crenated Cell Not Reportable Elliptocytes Not Reportable Acanthocytes (Spur) Not Reportable Rouleaux Not Reportable Hemoglobin C Crystals Not Reportable Schistocytes Not Reportable Malaria parasites Not Reportable Jonah Bodies Not Reportable Hem Pathologist Commnt No PT INR APTT D-Dimer Sodium 132 L Potassium 4.7 Chloride 96.9 L Carbon Dioxide 19 L Anion Gap 21 BUN 22 H Creatinine 0.9 Estimated GFR > 60 BUN/Creatinine Ratio 24 Glucose 303 H POC Glucose Lactic Acid 4.00 H* Calcium 8.7 Total Bilirubin 0.20 AST 20 ALT 7 Alkaline Phosphatase 97 Troponin T 0.101 H* Total Protein 6.1 L Albumin 2.7 L Albumin/Globulin Ratio 0.8 Triglycerides 145 Cholesterol 124 LDL Cholesterol Direct 56 HDL Cholesterol 42 Cholesterol/HDL Ratio 2.95 Blood Type Antibody Screen Crossmatch 10/04/21 10/05/21 10/05/21 22:33 00:44 00:45 WBC RBC Hgb Hct MCV MCH MCHC RDW Plt Count [place] % (Auto) Eos % (Auto) [place] # (Auto) Eos # (Auto) Baso # (Auto) Add Manual Diff Total Counted Seg Neuts % (Manual) Band Neutrophils % Lymphocytes % (Manual) Reactive Lymphs % (Man) Monocytes % (Manual) Eosinophils % (Manual) Basophils % (Manual) Metamyelocytes % Myelocytes % Promyelocytes % Blast Cells % Nucleated RBC % Seg Neutrophils # Seg Neutrophils # Man Band Neutrophils # Lymphocytes # (Manual) Abs React Lymphs (Man) Monocytes # (Manual) Eosinophils # (Manual) Basophils # (Manual) Metamyelocytes # Myelocytes # Promyelocytes # Blast Cells # WBC Morphology Hypersegmented Neuts Hyposegmented Neuts Hypogranular Neuts Smudge Cells Toxic Granulation Toxic Vacuolation Dohle Bodies Pelger-Huet Anomaly Mery Rods Platelet Estimate Clumped Platelets Plt Clumps, EDTA Large Platelets Giant Platelets Platelet Satelliting Plt Morphology Comment RBC Morphology Dimorphic RBCs Polychromasia Hypochromasia Poikilocytosis Anisocytosis Microcytosis Macrocytosis Spherocytes Pappenheimer Bodies Sickle Cells Target Cells Tear Drop Cells Ovalocytes Helmet Cells [place] Bodies Lejunior Rings [place] Cells Bite Cells Crenated Cell Elliptocytes Acanthocytes (Spur) Rouleaux Hemoglobin C Crystals Schistocytes Malaria parasites Jonah Bodies Hem Pathologist Commnt PT 14.9 INR 1.05 APTT 28.2 D-Dimer 1435.30 H Sodium Potassium Chloride Carbon Dioxide Anion Gap BUN Creatinine Estimated GFR BUN/Creatinine Ratio Glucose POC Glucose Lactic Acid 2.90 H* Calcium Total Bilirubin AST ALT Alkaline Phosphatase Troponin T Total Protein Albumin Albumin/Globulin Ratio Triglycerides Cholesterol LDL Cholesterol Direct HDL Cholesterol Cholesterol/HDL Ratio Blood Type A NEGATIVE Antibody Screen Negative Crossmatch See Detail 10/05/21 08:38 WBC RBC Hgb Hct MCV MCH MCHC RDW Plt Count [place] % (Auto) Eos % (Auto) [place] # (Auto) Eos # (Auto) Baso # (Auto) Add Manual Diff Total Counted Seg Neuts % (Manual) Band Neutrophils % Lymphocytes % (Manual) Reactive Lymphs % (Man) Monocytes % (Manual) Eosinophils % (Manual) Basophils % (Manual) Metamyelocytes % Myelocytes % Promyelocytes % Blast Cells % Nucleated RBC % Seg Neutrophils # Seg Neutrophils # Man Band Neutrophils # Lymphocytes # (Manual) Abs React Lymphs (Man) Monocytes # (Manual) Eosinophils # (Manual) Basophils # (Manual) Metamyelocytes # Myelocytes # Promyelocytes # Blast Cells # WBC Morphology Hypersegmented Neuts Hyposegmented Neuts Hypogranular Neuts Smudge Cells Toxic Granulation Toxic Vacuolation Dohle Bodies Pelger-Huet Anomaly Mery Rods Platelet Estimate Clumped Platelets Plt Clumps, EDTA Large Platelets Giant Platelets Platelet Satelliting Plt Morphology Comment RBC Morphology Dimorphic RBCs Polychromasia Hypochromasia Poikilocytosis Anisocytosis Microcytosis Macrocytosis Spherocytes Pappenheimer Bodies Sickle Cells Target Cells Tear Drop Cells Ovalocytes Helmet Cells [place] Bodies Lejunior Rings [place] Cells Bite Cells Crenated Cell Elliptocytes Acanthocytes (Spur) Rouleaux Hemoglobin C Crystals Schistocytes Malaria parasites Jonah Bodies Hem Pathologist Commnt PT INR APTT D-Dimer Sodium Potassium Chloride Carbon Dioxide Anion Gap BUN Creatinine Estimated GFR BUN/Creatinine Ratio Glucose POC Glucose 293 H Lactic Acid Calcium Total Bilirubin AST ALT Alkaline Phosphatase Troponin T Total Protein Albumin Albumin/Globulin Ratio Triglycerides Cholesterol LDL Cholesterol Direct HDL Cholesterol Cholesterol/HDL Ratio Blood Type Antibody Screen Crossmatch Assessment and Plan 1. Anemia - possible etiology includes: PUD, gastritis, esophagitis, duodenitits, AVM, malignancy, other - suspect multifactorial cause of anemia with possible upper GI bleeding given previous history of ulcers/?AVM, as well as possible large intestine malignancy given pathology results from 2015 colonoscopy - hemoglobin 5.8, s/p 2 units and waiting on repeat labs - continue to monitor and transfuse as needed - Pt ate today, so unable to perform EGD today - Pt will need EGD/colonoscopy given long standing anemia and previous EGD/colon findings, pending clinical course and clearance from pulmonology and cardiology given history <DANTE HORVATH - Last Filed: 10/05/21 14:12> History of Present Illness - Reason for Consult Requesting physician: VAN BROOKS Medications and Allergies Active Meds: Active Medications Albuterol (Albuterol 2.5 Mg/3 Ml Nebu) 2.5 mg IH Q3HRT PRN PRN Reason: Shortness Of Breath Albuterol/Ipratropium (Ipratropium/Albuterol Sulfate 3 Ml Ampul.Neb) 1 ampul IH Q6HRT [facility] Last Admin: 10/05/21 08:21 Dose: 1 ampul Arformoterol Tartrate (Arformoterol 15 Mcg/2 Ml Nebu) 15 mcg IH Q12HRT [facility] Last Admin: 10/05/21 08:21 Dose: 15 mcg Atorvastatin Calcium (Atorvastatin 40 Mg Tab) 40 mg PO DAILY [facility] Last Admin: 10/05/21 11:16 Dose: 40 mg Budesonide (Budesonide 0.5 Mg/2 Ml Nebu) 0.5 mg IH Q12HRT [facility] Last Admin: 10/05/21 08:21 Dose: 0.5 mg Citalopram Hydrobromide (Citalopram 20 Mg Tab) 20 mg PO DAILY [facility] Last Admin: 10/05/21 11:16 Dose: 20 mg Gabapentin (Gabapentin 300 Mg Cap) 900 mg PO BID [facility] Last Admin: 10/05/21 11:15 Dose: 900 mg Levofloxacin/Dextrose (Levaquin 750mg/150ml) 750 mg in 150 mls @ 100 mls/hr IV Q24HR [facility]; Protocol Last Admin: 10/05/21 11:15 Dose: 100 mls/hr Methylprednisolone Sodium Succinate (Methylprednisolone Sod Succinate 40 Mg/1 Ml Inj) 40 mg IV Q12HR [facility] Last Admin: 10/05/21 11:16 Dose: 40 mg Montelukast Sodium (Montelukast 10 Mg Tab) 10 mg PO QHS [facility] Morphine Sulfate (Morphine 2 Mg/1 Ml Inj) 2 mg IV Q4H PRN PRN Reason: Pain, Moderate (4-6) Morphine Sulfate (Morphine 4 Mg/1 Ml Inj) 4 mg IV Q4H PRN PRN Reason: Pain , Severe (7-10) Ondansetron HCl (Ondansetron 4 Mg/2 Ml Inj) 4 mg IV Q8H PRN PRN Reason: Nausea And Vomiting Pantoprazole Sodium (Pantoprazole 40 Mg Tab) 40 mg PO BID [facility] Last Admin: 10/05/21 11:15 Dose: 40 mg Polyethylene Glycol/Electrolytes (Polyethylene Glycol/Elect Soln 4000 Ml) 4,000 ml PO ONCE [facility] Stop: 10/08/21 00:00 Potassium Chloride (Potassium Chloride Er 10 Meq Tab) 10 meq PO DAILY [facility] Last Admin: 10/05/21 11:15 Dose: 10 meq Propranolol HCl (Propranolol 10 Mg Tab) 10 mg PO TID [facility] Last Admin: 10/05/21 11:22 Dose: Not Given Sodium Chloride (Sodium Chloride 0.9% 10 Ml Flush Syringe) 10 ml IV BID [facility] Last Admin: 10/05/21 11:16 Dose: 10 ml Sodium Chloride (Sodium Chloride 0.9% 10 Ml Flush Syringe) 10 ml IV PRN PRN PRN Reason: LINE FLUSH Reviewed/updated patient's home and current medications Exam - Constitutional Vital Signs: Temp Pulse Resp BP Pulse Ox 97.8 F 97 H 18 150/50 97 10/05/21 08:39 10/05/21 08:39 10/05/21 08:39 10/05/21 08:39 10/05/21 08:48 - Labs CBC & Chem 7: 10/04/21 22:33 10/04/21 22:33 Lab Results: Laboratory Results - last 24 hr 10/04/21 10/04/21 10/04/21 22:33 22:33 22:33 WBC 10.9 RBC 2.09 L Hgb 5.3 L* Hct 17.6 L* MCV 84 MCH 25 L MCHC 30 RDW 18.6 H Plt Count 476 H [place] % (Auto) 3.0 Eos % (Auto) 0.1 [place] # (Auto) 0.4 Eos # (Auto) 0.0 Baso # (Auto) 0.0 Add Manual Diff Complete Total Counted 100 Seg Neuts % (Manual) 97.0 H Band Neutrophils % 0 Lymphocytes % (Manual) 3.0 L Reactive Lymphs % (Man) 0 Monocytes % (Manual) 0 Eosinophils % (Manual) 0 Basophils % (Manual) 0 Metamyelocytes % 0 Myelocytes % 0 Promyelocytes % 0 Blast Cells % 0 Nucleated RBC % Not Reportable Seg Neutrophils # 10.8 H Seg Neutrophils # Man 10.6 H Band Neutrophils # 0.0 Lymphocytes # (Manual) 0.3 L Abs React Lymphs (Man) 0.0 Monocytes # (Manual) 0.0 Eosinophils # (Manual) 0.0 Basophils # (Manual) 0.0 Metamyelocytes # 0.0 Myelocytes # 0.0 Promyelocytes # 0.0 Blast Cells # 0.0 WBC Morphology Not Reportable Hypersegmented Neuts Not Reportable Hyposegmented Neuts Not Reportable Hypogranular Neuts Not Reportable Smudge Cells Not Reportable Toxic Granulation Not Reportable Toxic Vacuolation Not Reportable Dohle Bodies Not Reportable Pelger-Huet Anomaly Not Reportable Mery Rods Not Reportable Platelet Estimate Consistent w auto Clumped Platelets Not Reportable Plt Clumps, EDTA Not Reportable Large Platelets Not Reportable Giant Platelets Not Reportable Platelet Satelliting Not Reportable Plt Morphology Comment Not Reportable RBC Morphology Not Reportable Dimorphic RBCs Not Reportable Polychromasia Not Reportable Hypochromasia 1+ Poikilocytosis Not Reportable Anisocytosis 1+ Microcytosis Not Reportable Macrocytosis Not Reportable Spherocytes Not Reportable Pappenheimer Bodies Not Reportable Sickle Cells Not Reportable Target Cells Not Reportable Tear Drop Cells Not Reportable Ovalocytes Not Reportable Helmet Cells Not Reportable [place] Bodies Not Reportable Lejunior Rings Not Reportable [place] Cells Not Reportable Bite Cells Not Reportable Crenated Cell Not Reportable Elliptocytes Not Reportable Acanthocytes (Spur) Not Reportable Rouleaux Not Reportable Hemoglobin C Crystals Not Reportable Schistocytes Not Reportable Malaria parasites Not Reportable Jonah Bodies Not Reportable Hem Pathologist Commnt No PT INR APTT D-Dimer Sodium 132 L Potassium 4.7 Chloride 96.9 L Carbon Dioxide 19 L Anion Gap 21 BUN 22 H Creatinine 0.9 Estimated GFR > 60 BUN/Creatinine Ratio 24 Glucose 303 H POC Glucose Lactic Acid 4.00 H* Calcium 8.7 Total Bilirubin 0.20 AST 20 ALT 7 Alkaline Phosphatase 97 Troponin T 0.101 H* Total Protein 6.1 L Albumin 2.7 L Albumin/Globulin Ratio 0.8 Triglycerides 145 Cholesterol 124 LDL Cholesterol Direct 56 HDL Cholesterol 42 Cholesterol/HDL Ratio 2.95 Blood Type Antibody Screen Crossmatch 10/04/21 10/05/21 10/05/21 22:33 00:44 00:45 WBC RBC Hgb Hct MCV MCH MCHC RDW Plt Count [place] % (Auto) Eos % (Auto) [place] # (Auto) Eos # (Auto) Baso # (Auto) Add Manual Diff Total Counted Seg Neuts % (Manual) Band Neutrophils % Lymphocytes % (Manual) Reactive Lymphs % (Man) Monocytes % (Manual) Eosinophils % (Manual) Basophils % (Manual) Metamyelocytes % Myelocytes % Promyelocytes % Blast Cells % Nucleated RBC % Seg Neutrophils # Seg Neutrophils # Man Band Neutrophils # Lymphocytes # (Manual) Abs React Lymphs (Man) Monocytes # (Manual) Eosinophils # (Manual) Basophils # (Manual) Metamyelocytes # Myelocytes # Promyelocytes # Blast Cells # WBC Morphology Hypersegmented Neuts Hyposegmented Neuts Hypogranular Neuts Smudge Cells Toxic Granulation Toxic Vacuolation Dohle Bodies Pelger-Huet Anomaly Mery Rods Platelet Estimate Clumped Platelets Plt Clumps, EDTA Large Platelets Giant Platelets Platelet Satelliting Plt Morphology Comment RBC Morphology Dimorphic RBCs Polychromasia Hypochromasia Poikilocytosis Anisocytosis Microcytosis Macrocytosis Spherocytes Pappenheimer Bodies Sickle Cells Target Cells Tear Drop Cells Ovalocytes Helmet Cells [place] Bodies Lejunior Rings Felipe Cells Bite Cells Crenated Cell Elliptocytes Acanthocytes (Spur) Rouleaux Hemoglobin C Crystals Schistocytes Malaria parasites Jonah Bodies Hem Pathologist Commnt PT 14.9 INR 1.05 APTT 28.2 D-Dimer 1435.30 H Sodium Potassium Chloride Carbon Dioxide Anion Gap BUN Creatinine Estimated GFR BUN/Creatinine Ratio Glucose POC Glucose Lactic Acid 2.90 H* Calcium Total Bilirubin AST ALT Alkaline Phosphatase Troponin T Total Protein Albumin Albumin/Globulin Ratio Triglycerides Cholesterol LDL Cholesterol Direct HDL Cholesterol Cholesterol/HDL Ratio Blood Type A NEGATIVE Antibody Screen Negative Crossmatch See Detail 10/05/21 08:38 WBC RBC Hgb Hct MCV MCH MCHC RDW Plt Count [place] % (Auto) Eos % (Auto) [place] # (Auto) Eos # (Auto) Baso # (Auto) Add Manual Diff Total Counted Seg Neuts % (Manual) Band Neutrophils % Lymphocytes % (Manual) Reactive Lymphs % (Man) Monocytes % (Manual) Eosinophils % (Manual) Basophils % (Manual) Metamyelocytes % Myelocytes % Promyelocytes % Blast Cells % Nucleated RBC % Seg Neutrophils # Seg Neutrophils # Man Band Neutrophils # Lymphocytes # (Manual) Abs React Lymphs (Man) Monocytes # (Manual) Eosinophils # (Manual) Basophils # (Manual) Metamyelocytes # Myelocytes # Promyelocytes # Blast Cells # WBC Morphology Hypersegmented Neuts Hyposegmented Neuts Hypogranular Neuts Smudge Cells Toxic Granulation Toxic Vacuolation Dohle Bodies Pelger-Huet Anomaly Mery Rods Platelet Estimate Clumped Platelets Plt Clumps, EDTA Large Platelets Giant Platelets Platelet Satelliting Plt Morphology Comment RBC Morphology Dimorphic RBCs Polychromasia Hypochromasia Poikilocytosis Anisocytosis Microcytosis Macrocytosis Spherocytes Pappenheimer Bodies Sickle Cells Target Cells Tear Drop Cells Ovalocytes Helmet Cells [place] Bodies Lejunior Rings [place] Cells Bite Cells Crenated Cell Elliptocytes Acanthocytes (Spur) Rouleaux Hemoglobin C Crystals Schistocytes Malaria parasites Jonah Bodies Hem Pathologist Commnt PT INR APTT D-Dimer Sodium Potassium Chloride Carbon Dioxide Anion Gap BUN Creatinine Estimated GFR BUN/Creatinine Ratio Glucose POC Glucose 293 H Lactic Acid Calcium Total Bilirubin AST ALT Alkaline Phosphatase Troponin T Total Protein Albumin Albumin/Globulin Ratio Triglycerides Cholesterol LDL Cholesterol Direct HDL Cholesterol Cholesterol/HDL Ratio Blood Type Antibody Screen Crossmatch Assessment and Plan Patient seen and examined. I spent over 50% of time on management and care of the patient. acute on chronic anemia, prior egd with findings above and history of adenomatous polyp over 7 years ago. no overt gi bleeding. will plan for egd/colonoscopy likely Friday, monitor labs and transfuse if hgb < 7, rest as above.
[2021-10-05] MEDS ORDERED: NON-FORMULARY EACH (Fluticasone/Salmeterol [Advair Diskus 250-50 Mcg] 1 EACH Blst.W.Dev) IH SCH (10:00)
[2021-10-05] MEDS: GABAPENTIN 300 MG CAP PO SCH ×2 (11:15→23:11)
[2021-10-05] MEDS: POTASSIUM CHLORIDE ER 10 MEQ TAB PO SCH (11:15)
[2021-10-05] MEDS: PANTOPRAZOLE 40 MG TAB PO SCH ×2 (11:15→23:12)
[2021-10-05] MEDS: CITALOPRAM 20 MG TAB PO SCH (11:16)
[2021-10-05] MEDS: methylPREDNISolone Sod Succinate 40 MG/1 ML INJ IV SCH ×2 (11:16→23:14)
--- NOTE | 2021-10-05 11:19 | Electrocardiograph Report ---
[facility] Test Date: 2021-10-05 Test Time: 01:55:52 Pat Name: ANTONIO CHASE Department: Room: A470 1 Gender: F Pediatric Allergist: dawn : 1950 Requested By: DEE WATSON Order Number: [id number] Reading MD: Reji Domínguez Measurements Intervals [place] Rate: 87 P: 41 GA: 174 QRS: 18 QRSD: 79 T: 71 QT: 401 QTc: 477 Interpretive Statements Sinus rhythm Atrial premature complex Abnormal T, consider ischemia, anterior leads No previous ECG available for comparison Electronically Signed On 10-05-2021 11:18:46 EDT by Reji Domínguez
[2021-10-05] MEDS: PROPRANOLOL 10 MG TAB PO SCH ×3 (11:22→20:48)
--- NOTE | 2021-10-05 12:32 | Consultation ---
History of Present Illness Consult date: 10/05/21 Requesting physician: GAY ALVES Consult reason: elevated troponin History of present illness: Patient is a 71-year-old female with a reported past medical history of coronary artery disease s/p CABG 2014, hypertension, COPD, peripheral vascular disease s/p left lower extremity AKA, GI ulcers, anemia, and current smoker who reported to the ED with a complaint of shortness of breath x2 to 3 days. Patient reports that over the last several days she had worsening symptoms and could not breathe and came to the ED for further evaluation. Patient does report some upper abdominal pain and pain around her ribs. She does scribes pain as sharp, sore and worse with palpation. Patient reports that he has a health associate who helps move around in the home and she feels that she is sore from that. In the ED patient was found to have hemoglobin of 5.3, lactic acidosis, elevated troponins, and CXR shows pulmonary edema versus possible infectious process. Of note even though patient has history of CABG she states she has not followed up with any day care aide. Patient denies any complaints of chest pain, nausea, vomiting, diaphoresis, bloody stool. Patient is previously unknown to our practice. Cardiology is consulted for elevated troponins. Past History Past Medical History: COPD, diabetes, GERD, heart failure, hypertension, hyperlipidemia Past Surgical History: CABG, Other (Neck surgery, back surgery, stents placed in legs?, L leg amputation) Social history: smoking Family history: hypertension Medications and Allergies Allergies Allergy/AdvReac Type Severity Reaction Status Date / Time acetaminophen [From Tylenol] Allergy CAUSES Verified 05/25/21 16:48 ISSUE WITH LIVER Antihistamines - Alkylamine Allergy Shortness Verified 05/25/21 16:48 of Breath codeine Allergy Headache Verified 05/25/21 16:48 Penicillins Allergy Angioedema Verified 05/25/21 16:48 Sulfa (Sulfonamide Allergy Rash Verified 05/25/21 16:48 Antibiotics) ANTIBIOTICS Allergy Severe EXTREME Uncoded 05/25/21 16:48 STOMACH PAIN Home Medications Medication Instructions Recorded Confirmed Last Taken Type Potassium Chloride 10 meq PO DAILY 04/23/18 07/27/18 Unknown History Duloxetine HCl [Cymbalta] 60 mg PO DAILY #30 capsule. 04/28/18 07/27/18 Unknown Rx Metformin HCl [Glucophage] 1,000 mg PO BID #60 tablet 04/28/18 07/27/18 Unknown Rx AtorvaSTATin [Lipitor] 40 mg PO DAILY 07/27/18 07/27/18 Unknown History Citalopram [Celexa] 20 mg PO DAILY 07/27/18 07/27/18 Unknown History Fluticasone/Salmeterol [Advair 1 puff IH BID 07/27/18 07/27/18 Unknown History Diskus 250-50 mcg] Gabapentin 900 mg PO BID 07/27/18 07/27/18 Unknown History Multivit-Minerals/Ferrous Gluc 18 mg PO DAILY 07/27/18 07/27/18 Unknown History [Multi-Brandi Liquid] Venlafaxine HCl [Venlafaxine] 100 mg PO BID 07/27/18 07/27/18 Unknown History glipiZIDE [Glucotrol] 2.5 mg PO DAILY 07/27/18 07/27/18 Unknown History propranoloL [Inderal] 10 mg PO TID 07/27/18 07/27/18 Unknown History Magnesium Oxide [Mag-Ox] 400 mg PO BID #60 tablet 08/01/18 Unknown Rx Pantoprazole [Protonix TAB] 40 mg PO BID #60 tablet 08/01/18 Unknown Rx traMADoL [Ultram 50 MG tab] 50 mg PO Q4HR PRN #20 tablet 05/25/21 Unknown Rx Active Meds: Active Medications Albuterol (Albuterol 2.5 Mg/3 Ml Nebu) 2.5 mg IH Q3HRT PRN PRN Reason: Shortness Of Breath Albuterol/Ipratropium (Ipratropium/Albuterol Sulfate 3 Ml Ampul.Neb) 1 ampul IH Q6HRT [facility] Last Admin: 10/05/21 08:21 Dose: 1 ampul Arformoterol Tartrate (Arformoterol 15 Mcg/2 Ml Nebu) 15 mcg IH Q12HRT [facility] Last Admin: 10/05/21 08:21 Dose: 15 mcg Atorvastatin Calcium (Atorvastatin 40 Mg Tab) 40 mg PO DAILY [facility] Last Admin: 10/05/21 11:16 Dose: 40 mg Budesonide (Budesonide 0.5 Mg/2 Ml Nebu) 0.5 mg IH Q12HRT [facility] Last Admin: 10/05/21 08:21 Dose: 0.5 mg Citalopram Hydrobromide (Citalopram 20 Mg Tab) 20 mg PO DAILY [facility] Last Admin: 10/05/21 11:16 Dose: 20 mg Gabapentin (Gabapentin 300 Mg Cap) 900 mg PO BID [facility] Last Admin: 10/05/21 11:15 Dose: 900 mg Levofloxacin/Dextrose (Levaquin 750mg/150ml) 750 mg in 150 mls @ 100 mls/hr IV Q24HR [facility]; Protocol Last Admin: 10/05/21 11:15 Dose: 100 mls/hr Methylprednisolone Sodium Succinate (Methylprednisolone Sod Succinate 40 Mg/1 Ml Inj) 40 mg IV Q12HR [facility] Last Admin: 10/05/21 11:16 Dose: 40 mg Montelukast Sodium (Montelukast 10 Mg Tab) 10 mg PO QHS [facility] Morphine Sulfate (Morphine 2 Mg/1 Ml Inj) 2 mg IV Q4H PRN PRN Reason: Pain, Moderate (4-6) Morphine Sulfate (Morphine 4 Mg/1 Ml Inj) 4 mg IV Q4H PRN PRN Reason: Pain , Severe (7-10) Ondansetron HCl (Ondansetron 4 Mg/2 Ml Inj) 4 mg IV Q8H PRN PRN Reason: Nausea And Vomiting Pantoprazole Sodium (Pantoprazole 40 Mg Tab) 40 mg PO BID [facility] Last Admin: 10/05/21 11:15 Dose: 40 mg Polyethylene Glycol/Electrolytes (Polyethylene Glycol/Elect Soln 4000 Ml) 4,000 ml PO ONCE [facility] Stop: 10/08/21 00:00 Potassium Chloride (Potassium Chloride Er 10 Meq Tab) 10 meq PO DAILY [facility] Last Admin: 10/05/21 11:15 Dose: 10 meq Propranolol HCl (Propranolol 10 Mg Tab) 10 mg PO TID [facility] Last Admin: 10/05/21 11:22 Dose: Not Given Sodium Chloride (Sodium Chloride 0.9% 10 Ml Flush Syringe) 10 ml IV BID [facility] Last Admin: 10/05/21 11:16 Dose: 10 ml Sodium Chloride (Sodium Chloride 0.9% 10 Ml Flush Syringe) 10 ml IV PRN PRN PRN Reason: LINE FLUSH Review of Systems Constitutional: no fever, no chills Ears, nose, mouth and throat: no sinus pressure, no sinus pain Cardiovascular: shortness of breath, no chest pain, no orthopnea, no palpitations, no edema, no syncope Respiratory: shortness of breath Gastrointestinal: abdominal pain, no nausea, no vomiting, no melena, no hematochezia Musculoskeletal: no neck stiffness, no neck pain Integumentary: no rash, no pruritis, no redness Neurological: no head injury, no transient paralysis Psychiatric: no anxiety, no memory loss Endocrine: no cold intolerance, no heat intolerance Hematologic/Lymphatic: no easy bruising, no easy bleeding Physical Examination Vital Signs Temp Pulse Resp BP Pulse Ox 98.2 F 98 H 26 H 60/20 100 10/04/21 21:02 10/04/21 21:02 10/04/21 21:02 10/04/21 21:02 10/04/21 21:02 General appearance: no acute distress HEENT: Positive: Normocephaly Neck: Positive: trachea midline Cardiac: Positive: Reg Rate and Rhythm Lungs: Positive: Decreased Breath Sounds Neuro: Positive: Grossly Intact Abdomen: Positive: Soft Skin: Negative: Rash, Suspicious Lesions, Ulceration Extremities: Present: upper extr. pulses. Absent: edema Results 10/04/21 22:33 10/04/21 22:33 Cardiac Enzymes 10/04/21 Range/Units 22:33 AST 20 (5-40) units/L Coagulation 10/04/21 Range/Units 22:33 PT 14.9 (12.2-14.9) Sec. INR 1.05 (0.87-1.13) APTT 28.2 (24.2-36.6) Sec. Lipids 10/04/21 Range/Units 22:33 Triglycerides 145 (2-149) mg/dL Cholesterol 124 (50-199) mg/dL HDL Cholesterol 42 (40-59) mg/dL Cholesterol/HDL Ratio 2.95 % CBC 10/04/21 Range/Units 22:33 WBC 10.9 (4.5-11.0) K/mm3 RBC 2.09 L (3.65-5.03) M/mm3 Hgb 5.3 L* (10.1-14.3) gm/dl Hct 17.6 L* (30.3-42.9) % Plt Count 476 H (140-440) K/mm3 [place] # (Auto) 0.4 (0.0-0.8) K/mm3 Eos # (Auto) 0.0 (0.0-0.4) K/mm3 Baso # (Auto) 0.0 (0.0-0.1) K/mm3 Comprehensive Metabolic Panel 10/04/21 Range/Units 22:33 Sodium 132 L (137-145) mmol/L Potassium 4.7 (3.6-5.0) mmol/L Chloride 96.9 L (98-107) mmol/L Carbon Dioxide 19 L (22-30) mmol/L BUN 22 H (7-17) mg/dL Creatinine 0.9 (0.6-1.2) mg/dL Glucose 303 H (65-100) mg/dL Calcium 8.7 (8.4-10.2) mg/dL AST 20 (5-40) units/L ALT 7 (7-56) units/L Alkaline Phosphatase 97 (35-129) units/L Total Protein 6.1 L (6.3-8.2) g/dL Albumin 2.7 L (3.9-5) g/dL - Imaging and Cardiology Echo: pending, report reviewed Cardiac cath: report reviewed EKG interpretations - Telemetry EKG Rhythm: Sinus Rhythm - EKG Sinus rhythms and dysrhythmias: sinus rhythm Myocardial infarction: anterior AK (old age or i Assessment and Plan Patient is a 71-year-old female with a reported past medical history of coronary artery disease s/p CABG 2014, hypertension, COPD, peripheral vascular disease s/p left lower extremity AKA, GI ulcers, anemia, and current smoker who reported to the ED with a complaint of shortness of breath x2 to 3 days. Anemia-GI follow NSTEMI suspect type II COPD-pulmonology following CAD s/p CABG 2014 Hypertension Peripheral vascular disease s/p AKA GI ulcers Tobacco abuse Echo 07/29/2018-EF 55 to 60%. Right ventricular systolic function is normal. No significant stenotic or regurgitant valvular abnormalities. No pericardial effusion Echo 10/10/2014-EF 35 to 40%. There is apical inferior wall severe hypokinesis. Apica moderate hypokinesis. Right ventricle is normal in size and function. Mild to moderate mitral regurgitation. Cardiac cath 10/13/2014-severe multivessel coronary artery disease including heavily calcified left main and proximal LAD lesions Plan: EKG shows sinus rhythm with APC and abnormal T wave. No acute ischemic changes. Prior EKGs reviewed not significantly different from prior EKGs. Patient chest pain-free Troponins noted to be elevated suspect troponin elevation due to lactic acidosis and severe anemia We will hold aspirin at this time due to patient low hemoglobin requiring PRBC transfusion Continue statin therapy Patient currently on propanolol Patient appears euvolemic on exam. Echo pending CT showed high-grade stenosis of the right carotid artery. Carotid duplex pending Primary team may wish to consider vascular consult Close monitoring of H&H Patient conjunction with Dr. Domínguez who agrees with this plan of care - Patient Problems (1) Anemia Current Visit: Yes Status: Acute Qualifiers: Anemia type: unspecified type Qualified Code(s): D64.9 - Anemia, unspecified (2) COPD with exacerbation Current Visit: Yes Status: Acute (3) Dyspnea Current Visit: Yes Status: Acute Qualifiers: Dyspnea type: unspecified Qualified Code(s): R06.00 - Dyspnea, unspecified (4) Elevated troponin Current Visit: Yes Status: Acute (5) Lactic acidosis Current Visit: Yes Status: Acute (6) Pulmonary edema Current Visit: Yes Status: Acute (7) Acidosis Current Visit: No Status: Acute
[2021-10-05 14:38] LABS: Bacteria,Urine 1+ /HPF (Negative)
[2021-10-05 14:40] LABS: Bilirubin,Urine Negative (Negative); Color,Urine Yellow (Yellow)
[2021-10-05 14:41] LABS: Blood,Urine Trace (Negative); PH,Urine 6.5 (5.0-7.0); Urobilinogen,Urine < 2.0 mg/dL (<2.0)
[2021-10-05 15:00] LABS: Hematocrit 25.9 % (30.3-42.9); Hemoglobin 8.4 gm/dl (10.1-14.3)
[2021-10-05] MEDS: INSULIN LISPRO 100 UNIT/ML SUB-Q SCH ×2 (15:34→23:09)
--- NOTE | 2021-10-05 16:52 | Vascular Lab Report ---
DUPLEX DOPPLER ULTRASOUND CAROTID, BILATERAL INDICATION / CLINICAL INFORMATION: CT showed right carotid stenosis. COMPARISON: Carotid Doppler 07/29/2018. FINDINGS: RIGHT CAROTID: Abnormal monophasic waveforms are again visualized in the CCA, ICA, ECA. Significant a therosclerotic plaque is again visualized. - PLAQUE ESTIMATE (%): < 50% - CCA velocity: 26 cm/sec. - ICA peak systolic velocity: 66 cm/sec. - ICA/CCA PSV Ratio: 2.5 Right Vertebral Artery: Retrograde flow. LEFT CAROTID: Significant atherosclerotic plaque is again visualized. - PLAQUE ESTIMATE (%): >50% - CCA velocity: 148 cm/sec. - ICA peak systolic velocity: 377 cm/sec. - ICA/CCA PSV Ratio: 2.6 Left Vertebral Artery: Antegrade flow. IMPRESSION: 1. Left Internal Carotid Artery: >70% diameter stenosis but less than total occlusion 2. Abnormal monophasic waveforms are again visualized in the right CCA, ICA, ECA with velocities sugg esting less than 50% diameter stenosis in the right ICA. 3. Retrograde flow is again visualized in the right vertebral artery. Velocity criteria are extrapolated from diameter data as defined by the Society of Radiologists in Ul trasound Consensus Conference, Radiology 2003; 229;340-346. NO STENOSIS (NORMAL) - Plaque = none; ICA PSV < 125 cm/sec; ICA/CCA PSV Ratio < 2.0 <50% STENOSIS - Plaque < 50%; ICA PSV < 125 cm/sec; ICA/CCA PSV Ratio < 2.0 50-69% STENOSIS - Plaque > 50%; ICA PSV = 125-230 cm/sec; ICA/CCA PSV Ratio = 2.0-4.0 >70% BUT <100% STENOSIS - Plaque > 50%; ICA PSV > 230 cm/sec; ICA/CCA PSV Ratio > 4.0 NEAR OCCLUSION - Plaque = visible lumen; ICA PSV = high/low/none; ICA/CCA PSV Ratio = variable TOTAL OCCLUSION - Plaque = no lumen; ICA PSV = none; ICA/CCA PSV Ratio = N/A Scribed by: Dianne Sebastian RDMS, RVT, RMSKS Scribed: 10/05/2021 2:21 PM I have reviewed the images, agree with this report, and edited this report as needed. Signer Name: Obed Lozoya MD Signed: 10/05/2021 4:48 PM Workstation Name: [email or web address]
--- NOTE | 2021-10-05 17:06 | Event Note ---
Date: 10/05/21 The patient was evaluated this morning, and she was found to be hemodynamically stable. #Presumed COPD exacerbation #Acute hypoxic respiratory failure Continue DuoNebs every 4 hours and albuterol nebs every 4 hours as needed. Continue IV methylprednisolone 40 mg every 12 hours. Continue Levaquin 750 mg daily #Pulmonary edema Status post IV Lasix 40 mg x 1. Pending TTE to evaluate cardiac function. Continue to monitor. #Significant normocytic anemia Hemoglobin 5.3 Transfusing 2-3 units packed RBCs. Continue to trend H&H. Patient denies hemoptysis, hematemesis, melena, or hematochezia. Continue IV PPI twice daily. Gastroenterology consulted; appreciate recs. Anticipating upper and lower endoscopy as early as tomorrow (if patient is deemed medically stable to proceed based on cardiac evaluation with TTE). Transfuse if hemoglobin <7 or patient becomes symptomatic. #Elevated troponin Likely secondary to demand ischemia in the setting of significant anemia. Pending TTE to evaluate cardiac function. Cardiology consulted; appreciate recs #Non-insulin dependent type II diabetes mellitus - hemoglobin A1c: Unknown - home regimen: Metformin 1000 mg twice daily, glipizide 2.5 mg daily - current regimen: Moderate SSI - blood glucose goal 140-180 while inpatient - continue to monitor #History of chronic pain Continue citalopram 20 mg daily, duloxetine 60 mg daily, venlafaxine 100 mg twice daily #Lactic acidosisresolved #History of acute ischemic CVA Currently holding aspirin in the setting of GI bleed. Continue atorvastatin 40 mg daily. #GERD Continue home pantoprazole 40 mg daily #Obesity #Weight loss counseling #Exercise counseling - BMI 30.0 - Counseled patient on the importance of weight loss, incorporating exercise, and dietary changes (lean meats, fresh fruits and vegetables, and water intake). Patient expresses understanding. - Time: +15 min #Coordination of CARE time: 30 minutes. Total visit time equals 30 or more minutes with greater than 50% spent [id number] on coordination of care and counseling. #Advanced care planning -Disease education conducted, care plan discussed, diagnoses discussed, prognosis discussed, and patient acknowledges understanding with care plan -Time: +30 min
[2021-10-05] MEDS ORDERED: MONTELUKAST 10 MG TAB PO SCH (22:00)
[2021-10-06] MEDS: IPRATROPIUM/ALBUTEROL SULFATE 3 ML AMPUL.NEB IH SCH ×4 (02:01→22:37)
[2021-10-06 05:45] LABS: Hematocrit 25.8 % (30.3-42.9); Mean Corpuscular HGB Conc 31 % (30-34); Mean Corpuscular Volume 82 fl (79-97); Platelet Count 350 K/mm3 (140-440); Red Blood Count 3.13 M/mm3 (3.65-5.03); Red Cell Distribution Width 18.3 % (13.2-15.2)
[2021-10-06 05:55] LABS: BUN/Creatinine Ratio 28; Blood Urea Nitrogen 22 mg/dL (7-17); Calcium 8.6 mg/dL (8.4-10.2); Hemolysis Index 3
[2021-10-06 07:09] LABS: Basophils % (Manual) 0 % (0.0-1.8); Eosinophils % (Manual) 0 % (0.0-4.3); Hypochromasia 1+; Platelet Estimate Consistent w Auto; Total Cells Counted 100
[2021-10-06] MEDS: ARFORMOTEROL 15 MCG/2 ML NEBU IH SCH ×2 (08:30→20:27)
[2021-10-06] MEDS: INSULIN LISPRO 100 UNIT/ML SUB-Q SCH ×3 (08:30→17:47)
[2021-10-06] MEDS: BUDESONIDE 0.5 MG/2 ML NEBU IH SCH ×2 (08:30→20:27)
[2021-10-06] MEDS: GABAPENTIN 300 MG CAP PO SCH ×2 (09:18→21:53)
[2021-10-06] MEDS: PANTOPRAZOLE 40 MG TAB PO SCH ×2 (09:18→21:51)
[2021-10-06] MEDS: POTASSIUM CHLORIDE ER 10 MEQ TAB PO SCH (09:19)
[2021-10-06] MEDS: PROPRANOLOL 10 MG TAB PO SCH ×3 (09:19→21:35)
[2021-10-06] MEDS: CITALOPRAM 20 MG TAB PO SCH (09:19)
[2021-10-06] MEDS: methylPREDNISolone Sod Succinate 40 MG/1 ML INJ IV SCH (09:20)
--- NOTE | 2021-10-06 09:32 | Progress Note ---
Assessment and Plan Assessment and plan: #Significant normocytic anemiaimproving Hemoglobin 5.3--> 8.0 Transfusing 2-3 units packed RBCs. Continue to trend H&H. Patient denies hemoptysis, hematemesis, melena, or hematochezia. Continue p.o. PPI twice daily. Gastroenterology consulted; appreciate recs. Anticipating upper and lower endoscopy as early as tomorrow (if patient is deemed medically stable to proceed based on cardiac evaluation with TTE). Starting clear liquid diet, patient will be n.p.o. at midnight. Transfuse if hemoglobin <7 or patient becomes symptomatic. #Pulmonary edema Status post IV Lasix 40 mg x 1. Pending TTE read to evaluate cardiac function. Continue to monitor. #Presumed COPD exacerbationruled out #Acute hypoxic respiratory failure Low clinical suspicion for COPD exacerbation as the patient had severe anemia and could have resulted in shortness of breath and the need for supplemental oxygen. Continue DuoNebs every 4 hours and albuterol nebs every 4 hours as needed. Discontinue IV methylprednisolone 40 mg every 12 hours. Discontinue Levaquin 750 mg daily Currently on 2 L nasal cannula. Continue to wean as tolerated. #Elevated troponin Likely secondary to demand ischemia in the setting of significant anemia. Pending TTE to evaluate cardiac function. Cardiology consulted; appreciate recs #Left ICA stenosis Carotid Doppler ultrasound revealing >70% stenosis. Vascular surgery consulted; pending recs. #Non-insulin dependent type II diabetes mellitus - hemoglobin A1c: Unknown - home regimen: Metformin 1000 mg twice daily, glipizide 2.5 mg daily - current regimen: Moderate SSI - blood glucose goal 140-180 while inpatient - continue to monitor #History of chronic pain Continue citalopram 20 mg daily, duloxetine 60 mg daily, venlafaxine 100 mg twice daily #Lactic acidosis Lactic acid 2.8. Continue to trend until resolved. #History of acute ischemic CVA Currently holding aspirin in the setting of GI bleed. Continue atorvastatin 40 mg daily. #GERD Continue home pantoprazole 40 mg daily #Insomnia Starting Seroquel 12.5 mg nightly. Continue to monitor. #Obesity #Weight loss counseling #Exercise counseling - BMI 30.0 - Counseled patient on the importance of weight loss, incorporating exercise, and dietary changes (lean meats, fresh fruits and vegetables, and water intake). Patient expresses understanding. - Time: +15 min #Advanced care planning -Disease education conducted, care plan discussed, diagnoses discussed, prognosis discussed, and patient acknowledges understanding with care plan -Time: +30 min Disposition Plan: Continue medical management Total Time Spent with Patient (Minutes): 45 minutes History Interval history: No acute events overnight. Hospitalist Physical - Constitutional Vitals: Temp Pulse Resp BP Pulse Ox 98.0 F 79 16 142/56 97 10/06/21 07:49 10/06/21 07:49 10/06/21 02:01 10/06/21 07:49 10/06/21 07:49 General appearance: Present: no acute distress, well-nourished, obese - EENT Eyes: Present: PERRL, EOM intact ENT: hearing intact, clear oral mucosa, dentition normal - Neck Neck: Present: supple, normal ROM - Respiratory Respiratory effort: normal Respiratory: bilateral: CTA (2 L nasal cannula) - Cardiovascular Rhythm: regular Heart Sounds: Present: S1 & S2 - Extremities Extremities: no ischemia, pulses intact, pulses symmetrical, No edema, normal temperature, normal color, abnormal (Left AKA) Peripheral Pulses: within normal limits - Abdominal General gastrointestinal: soft, non-tender, non-distended, normal bowel sounds - Integumentary Integumentary: Present: clear, warm, dry - Psychiatric Psychiatric: appropriate mood/affect, intact judgment & insight, memory intact, cooperative - Neurologic Neurologic: CNII-XII intact, moves all extremities - Allied Health Allied health notes reviewed: nursing HEART Score - HEART Score Troponin: Troponin T 0.101 ng/mL (0.00-0.029) H* 10/04/21 22:33 Results - Labs CBC & Chem 7: 10/06/21 04:35 10/06/21 04:35 Labs: Laboratory Last Values WBC 8.5 K/mm3 (4.5-11.0) 10/06/21 04:35 RBC 3.13 M/mm3 (3.65-5.03) L 10/06/21 04:35 Hgb 8.0 gm/dl (10.1-14.3) L 10/06/21 04:35 Hct 25.8 % (30.3-42.9) L 10/06/21 04:35 MCV 82 fl (79-97) 10/06/21 04:35 MCH 25 pg (28-32) L 10/06/21 04:35 MCHC 31 % (30-34) 10/06/21 04:35 RDW 18.3 % (13.2-15.2) H 10/06/21 04:35 Plt Count 350 K/mm3 (140-440) 10/06/21 04:35 [place] % (Auto) 3.0 % (0.0-7.3) 10/04/21 22:33 Eos % (Auto) 0.1 % (0.0-4.3) 10/04/21 22:33 [place] # (Auto) 0.4 K/mm3 (0.0-0.8) 10/04/21 22:33 Eos # (Auto) 0.0 K/mm3 (0.0-0.4) 10/04/21 22:33 Baso # (Auto) 0.0 K/mm3 (0.0-0.1) 10/04/21 22:33 Add Manual Diff Complete 10/06/21 04:35 Total Counted 100 10/06/21 04:35 Seg Neutrophils % [employer] 10/06/21 04:35 Seg Neuts % (Manual) 96.0 % (40.0-70.0) H 10/06/21 04:35 Band Neutrophils % 0 % 10/06/21 04:35 Lymphocytes % (Manual) 3.0 % (13.4-35.0) L 10/06/21 04:35 Reactive Lymphs % (Man) 0 % 10/06/21 04:35 Monocytes % (Manual) 1.0 % (0.0-7.3) 10/06/21 04:35 Eosinophils % (Manual) 0 % (0.0-4.3) 10/06/21 04:35 Basophils % (Manual) 0 % (0.0-1.8) 10/06/21 04:35 Metamyelocytes % 0 % 10/06/21 04:35 Myelocytes % 0 % 10/06/21 04:35 Promyelocytes % 0 % 10/06/21 04:35 Blast Cells % 0 % 10/06/21 04:35 Nucleated RBC % Not Reportable 10/06/21 04:35 Seg Neutrophils # 10.8 K/mm3 (1.8-7.7) H 10/04/21 22:33 Seg Neutrophils # Man 8.2 K/mm3 (1.8-7.7) H 10/06/21 04:35 Band Neutrophils # 0.0 K/mm3 10/06/21 04:35 Lymphocytes # (Manual) 0.3 K/mm3 (1.2-5.4) L 10/06/21 04:35 Abs React Lymphs (Man) 0.0 K/mm3 10/06/21 04:35 Monocytes # (Manual) 0.1 K/mm3 (0.0-0.8) 10/06/21 04:35 Eosinophils # (Manual) 0.0 K/mm3 (0.0-0.4) 10/06/21 04:35 Basophils # (Manual) 0.0 K/mm3 (0.0-0.1) 10/06/21 04:35 Metamyelocytes # 0.0 K/mm3 10/06/21 04:35 Myelocytes # 0.0 K/mm3 10/06/21 04:35 Promyelocytes # 0.0 K/mm3 10/06/21 04:35 Blast Cells # 0.0 K/mm3 10/06/21 04:35 WBC Morphology Not Reportable 10/06/21 04:35 Hypersegmented Neuts Not Reportable 10/06/21 04:35 Hyposegmented Neuts Not Reportable 10/06/21 04:35 Hypogranular Neuts Not Reportable 10/06/21 04:35 Smudge Cells Not Reportable 10/06/21 04:35 Toxic Granulation Not Reportable 10/06/21 04:35 Toxic Vacuolation Not Reportable 10/06/21 04:35 Dohle Bodies Not Reportable 10/06/21 04:35 Pelger-Huet Anomaly Not Reportable 10/06/21 04:35 Mery Rods Not Reportable 10/06/21 04:35 Platelet Estimate Consistent w auto 10/06/21 04:35 Clumped Platelets Not Reportable 10/06/21 04:35 Plt Clumps, EDTA Not Reportable 10/06/21 04:35 Large Platelets Not Reportable 10/06/21 04:35 Giant Platelets Not Reportable 10/06/21 04:35 Platelet Satelliting Not Reportable 10/06/21 04:35 Plt Morphology Comment Not Reportable 10/06/21 04:35 RBC Morphology Not Reportable 10/06/21 04:35 Dimorphic RBCs Not Reportable 10/06/21 04:35 Polychromasia Not Reportable 10/06/21 04:35 Hypochromasia 1+ 10/06/21 04:35 Poikilocytosis Not Reportable 10/06/21 04:35 Anisocytosis Not Reportable 10/06/21 04:35 Microcytosis Not Reportable 10/06/21 04:35 Macrocytosis Not Reportable 10/06/21 04:35 Spherocytes Not Reportable 10/06/21 04:35 Pappenheimer Bodies Not Reportable 10/06/21 04:35 Sickle Cells Not Reportable 10/06/21 04:35 Target Cells Not Reportable 10/06/21 04:35 Tear Drop Cells Not Reportable 10/06/21 04:35 Ovalocytes Not Reportable 10/06/21 04:35 Helmet Cells Not Reportable 10/06/21 04:35 [place] Bodies Not Reportable 10/06/21 04:35 [place] Rings Not Reportable 10/06/21 04:35 [place] Cells Not Reportable 10/06/21 04:35 Bite Cells Not Reportable 10/06/21 04:35 Crenated Cell Not Reportable 10/06/21 04:35 Elliptocytes Not Reportable 10/06/21 04:35 Acanthocytes (Spur) Not Reportable 10/06/21 04:35 Rouleaux Not Reportable 10/06/21 04:35 Hemoglobin C Crystals Not Reportable 10/06/21 04:35 Schistocytes Not Reportable 10/06/21 04:35 Malaria parasites Not Reportable 10/06/21 04:35 [place] Bodies Not Reportable 10/06/21 04:35 Hem Pathologist Commnt No 10/06/21 04:35 PT 14.9 Sec. (12.2-14.9) 10/04/21 22:33 INR 1.05 (0.87-1.13) 10/04/21 22:33 APTT 28.2 Sec. (24.2-36.6) 10/04/21 22:33 D-Dimer 1435.30 ng/mlDDU (0-234) H 10/04/21 22:33 Sodium 131 mmol/L (137-145) L 10/06/21 04:35 Potassium 5.0 mmol/L (3.6-5.0) 10/06/21 04:35 Chloride 97.0 mmol/L (98-107) L 10/06/21 04:35 Carbon Dioxide 23 mmol/L (22-30) 10/06/21 04:35 Anion Gap 16 mmol/L 10/06/21 04:35 BUN 22 mg/dL (7-17) H 10/06/21 04:35 Creatinine 0.8 mg/dL (0.6-1.2) 10/06/21 04:35 Estimated GFR > 60 ml/min 10/06/21 04:35 BUN/Creatinine Ratio 28 % 10/06/21 04:35 Glucose 282 mg/dL (65-100) H 10/06/21 04:35 POC Glucose 325 mg/dL (70-105) H 10/06/21 07:31 Lactic Acid 2.80 mmol/L (0.7-2.0) H* 10/05/21 14:27 Calcium 8.6 mg/dL (8.4-10.2) 10/06/21 04:35 Total Bilirubin 0.20 mg/dL (0.1-1.2) 10/04/21 22:33 AST 20 units/L (5-40) 10/04/21 22:33 ALT 7 units/L (7-56) 10/04/21 22:33 Alkaline Phosphatase 97 units/L (35-129) 10/04/21 22:33 Troponin T 0.101 ng/mL (0.00-0.029) H* 10/04/21 22:33 NT-Pro-B Natriuret Pep 75957 pg/mL (0-900) H 10/05/21 14:27 Total Protein 6.1 g/dL (6.3-8.2) L 10/04/21 22:33 Albumin 2.7 g/dL (3.9-5) L 10/04/21 22:33 Albumin/Globulin Ratio 0.8 % 10/04/21 22:33 Triglycerides 145 mg/dL (2-149) 10/04/21 22:33 Cholesterol 124 mg/dL (50-199) 10/04/21 22:33 LDL Cholesterol Direct 56 mg/dL (50-130) 10/04/21 22:33 HDL Cholesterol 42 mg/dL (40-59) 10/04/21 22:33 Cholesterol/HDL Ratio 2.95 % 10/04/21 22:33 Procalcitonin 0.64 ng/mL (<0.15) 10/05/21 14:27 Urine Color Yellow (Yellow) 10/04/21 13:53 Urine Turbidity Clear (Clear) 10/04/21 13:53 Urine pH 6.5 (5.0-7.0) 10/04/21 13:53 Ur Specific [place] 1.010 (1.003-1.030) 10/04/21 13:53 Urine Protein 30 mg/dl mg/dL (Negative) 10/04/21 13:53 Urine Glucose (UA) Negative mg/dL (Negative) 10/04/21 13:53 Urine Ketones Negative mg/dL (Negative) 10/04/21 13:53 Urine Blood Trace (Negative) 10/04/21 13:53 Urine Nitrite Positive (Negative) 10/04/21 13:53 Ur Reducing Substances Not Reportable 10/04/21 13:53 Urine Bilirubin Negative (Negative) 10/04/21 13:53 Urine Ictotest Not Reportable 10/04/21 13:53 Urine Urobilinogen < 2.0 mg/dL (<2.0) 10/04/21 13:53 Ur Leukocyte Esterase Small (Negative) 10/04/21 13:53 Urine WBC (Auto) 55.0 /HPF (0.0-6.0) H 10/04/21 13:53 Urine RBC (Auto) 2.0 /HPF (0.0-6.0) 10/04/21 13:53 U Epithel Cells (Auto) < 1.0 /HPF (0-13.0) 10/04/21 13:53 Urine Bacteria (Auto) 1+ /HPF (Negative) 10/04/21 13:53 Urine Yeast (Budding) Few /HPF 10/04/21 13:53 Coronavirus (PCR) Negative (Negative) 10/05/21 Unknown Blood Type A NEGATIVE 10/05/21 00:45 Antibody Screen Negative 10/05/21 00:45 Crossmatch See Detail 10/05/21 00:45 Sanchez/IV: Voiding Method External Female Catheter Active Medications - Current Medications Current Medications: Generic Name Dose Route Start Last Admin Trade Name Freq PRN Reason Stop Dose Admin Albuterol 2.5 mg 10/05/21 01:13 Albuterol 2.5 Mg/3 Ml Nebu IH Q3HRT PRN Shortness Of Breath Albuterol/Ipratropium 1 ampul 10/05/21 08:00 10/06/21 08:20 Ipratropium/Albuterol Sulfate 3 Ml Ampul.Neb IH 1 ampul Q6HRT CHRISTOPHER Administration Arformoterol Tartrate 15 mcg 10/05/21 08:00 10/06/21 08:30 Arformoterol 15 Mcg/2 Ml Nebu IH 15 mcg Q12HRT CHRISTOPHER Administration Atorvastatin Calcium 40 mg 10/05/21 10:00 10/06/21 09:19 Atorvastatin 40 Mg Tab PO 40 mg DAILY CHRISTOPHER Administration Budesonide 0.5 mg 10/05/21 08:00 10/06/21 08:30 Budesonide 0.5 Mg/2 Ml Nebu IH 0.5 mg Q12HRT CHRISTOPHER Administration Citalopram Hydrobromide 20 mg 10/05/21 10:00 10/06/21 09:19 Citalopram 20 Mg Tab PO 20 mg DAILY CHRISTOPHER Administration Gabapentin 900 mg 10/05/21 10:00 10/06/21 09:18 Gabapentin 300 Mg Cap PO 900 mg BID CHRISTOPHER Administration Insulin Human Lispro 0 unit 10/05/21 16:30 10/06/21 08:30 Insulin Lispro 100 Unit/Ml SUB-Q 6 unit ACHS CHRISTOPHER Administration Protocol Morphine Sulfate 2 mg 10/05/21 01:13 Morphine 2 Mg/1 Ml Inj IV Q4H PRN Pain, Moderate (4-6) Morphine Sulfate 4 mg 10/05/21 01:13 Morphine 4 Mg/1 Ml Inj IV Q4H PRN Pain , Severe (7-10) Ondansetron HCl 4 mg 10/05/21 01:13 Ondansetron 4 Mg/2 Ml Inj IV Q8H PRN Nausea And Vomiting Pantoprazole Sodium 40 mg 10/05/21 10:00 10/06/21 09:18 Pantoprazole 40 Mg Tab PO 40 mg BID CHRISTOPHER Administration Polyethylene Glycol/Electrolytes 4,000 ml 10/07/21 17:00 Polyethylene Glycol/Elect Soln 4000 Ml PO 10/08/21 00:00 ONCE CHRISTOPHER Potassium Chloride 10 meq 10/05/21 10:00 10/06/21 09:19 Potassium Chloride Er 10 Meq Tab PO Not Given DAILY CHRISTOPHER Propranolol HCl 10 mg 10/05/21 08:00 10/06/21 09:19 Propranolol 10 Mg Tab PO 10 mg TID CHRISTOPHER Administration Quetiapine Fumarate 12.5 mg 10/06/21 22:00 Quetiapine 25 Mg Tab PO QHS CHRISTOPHER Sodium Chloride 10 ml 10/05/21 10:00 10/06/21 09:20 Sodium Chloride 0.9% 10 Ml Flush Syringe IV 10 ml BID CHRISTOPHER Administration Sodium Chloride 10 ml 10/05/21 01:13 Sodium Chloride 0.9% 10 Ml Flush Syringe IV PRN PRN LINE FLUSH
--- NOTE | 2021-10-06 09:34 | Gastroenterology Progress Note ---
Assessment and Plan acute on chronic anemia - no overt gi bleeding, appropriate response to blood transfusions. HD stable. recommend egd/colonoscopy Friday (see consult note regarding details). currently she is declining and states she wants to go home despite recommendations. if she is in house tomorrow, will follow-up and re- discuss. Subjective Date of service: 10/06/21 Principal diagnosis: anemia Interval history: pt feels better, no overt gi bleeding. denies abd pain. tolerating po. Objective - Constitutional Vitals: Temp Pulse Resp BP Pulse Ox 98.0 F 79 16 142/56 97 10/06/21 07:49 10/06/21 07:49 10/06/21 02:01 10/06/21 07:49 10/06/21 07:49 General appearance: no acute distress - Respiratory Respiratory effort: normal Respiratory: bilateral: CTA - Cardiovascular Rhythm: regular Heart Sounds: Present: S1 & S2 - Gastrointestinal General gastrointestinal: Present: soft, non-tender - Labs CBC & Chem 7: 10/06/21 04:35 10/06/21 04:35 Labs: Laboratory Results - last 24 hr 10/04/21 10/05/21 10/05/21 13:53 00:45 14:27 WBC RBC Hgb Hct MCV MCH MCHC RDW Plt Count Add Manual Diff Total Counted Seg Neutrophils % Seg Neuts % (Manual) Band Neutrophils % Lymphocytes % (Manual) Reactive Lymphs % (Man) Monocytes % (Manual) Eosinophils % (Manual) Basophils % (Manual) Metamyelocytes % Myelocytes % Promyelocytes % Blast Cells % Nucleated RBC % Seg Neutrophils # Man Band Neutrophils # Lymphocytes # (Manual) Abs React Lymphs (Man) Monocytes # (Manual) Eosinophils # (Manual) Basophils # (Manual) Metamyelocytes # Myelocytes # Promyelocytes # Blast Cells # WBC Morphology Hypersegmented Neuts Hyposegmented Neuts Hypogranular Neuts Smudge Cells Toxic Granulation Toxic Vacuolation Dohle Bodies Pelger-Huet Anomaly Mery Rods Platelet Estimate Clumped Platelets Plt Clumps, EDTA Large Platelets Giant Platelets Platelet Satelliting Plt Morphology Comment RBC Morphology Dimorphic RBCs Polychromasia Hypochromasia Poikilocytosis Anisocytosis Microcytosis Macrocytosis Spherocytes Pappenheimer Bodies Sickle Cells Target Cells Tear Drop Cells Ovalocytes Helmet Cells [place] Bodies [place] Rings [place] Cells Bite Cells Crenated Cell Elliptocytes Acanthocytes (Spur) Rouleaux Hemoglobin C Crystals Schistocytes Malaria parasites Jonah Bodies Hem Pathologist Commnt Sodium Potassium Chloride Carbon Dioxide Anion Gap BUN Creatinine Estimated GFR BUN/Creatinine Ratio Glucose POC Glucose Lactic Acid 2.80 H* Calcium NT-Pro-B Natriuret Pep Procalcitonin Urine Color Yellow Urine Turbidity Clear Urine pH 6.5 Ur Specific [place] 1.010 Urine Protein 30 mg/dl Urine Glucose (UA) Negative Urine Ketones Negative Urine Blood Trace Urine Nitrite Positive Ur Reducing Substances Not Reportable Urine Bilirubin Negative Urine Ictotest Not Reportable Urine Urobilinogen < 2.0 Ur Leukocyte Esterase Small Urine WBC (Auto) 55.0 H Urine RBC (Auto) 2.0 U Epithel Cells (Auto) < 1.0 Urine Bacteria (Auto) 1+ Urine Yeast (Budding) Few Coronavirus (PCR) Crossmatch See Detail 10/05/21 10/05/21 10/05/21 14:27 14:27 14:27 WBC RBC Hgb 8.4 L D Hct 25.9 L D MCV MCH MCHC RDW Plt Count Add Manual Diff Total Counted Seg Neutrophils % Seg Neuts % (Manual) Band Neutrophils % Lymphocytes % (Manual) Reactive Lymphs % (Man) Monocytes % (Manual) Eosinophils % (Manual) Basophils % (Manual) Metamyelocytes % Myelocytes % Promyelocytes % Blast Cells % Nucleated RBC % Seg Neutrophils # Man Band Neutrophils # Lymphocytes # (Manual) Abs React Lymphs (Man) Monocytes # (Manual) Eosinophils # (Manual) Basophils # (Manual) Metamyelocytes # Myelocytes # Promyelocytes # Blast Cells # WBC Morphology Hypersegmented Neuts Hyposegmented Neuts Hypogranular Neuts Smudge Cells Toxic Granulation Toxic Vacuolation Dohle Bodies Pelger-Huet Anomaly Mery Rods Platelet Estimate Clumped Platelets Plt Clumps, EDTA Large Platelets Giant Platelets Platelet Satelliting Plt Morphology Comment RBC Morphology Dimorphic RBCs Polychromasia Hypochromasia Poikilocytosis Anisocytosis Microcytosis Macrocytosis Spherocytes Pappenheimer Bodies Sickle Cells Target Cells Tear Drop Cells Ovalocytes Helmet Cells [place] Bodies [place] Rings [place] Cells Bite Cells Crenated Cell Elliptocytes Acanthocytes (Spur) Rouleaux Hemoglobin C Crystals Schistocytes Malaria parasites Jonah Bodies Hem Pathologist Commnt Sodium Potassium Chloride Carbon Dioxide Anion Gap BUN Creatinine Estimated GFR BUN/Creatinine Ratio Glucose POC Glucose Lactic Acid Calcium NT-Pro-B Natriuret Pep 38674 H Procalcitonin 0.64 Urine Color Urine Turbidity Urine pH Ur Specific [place] Urine Protein Urine Glucose (UA) Urine Ketones Urine Blood Urine Nitrite Ur Reducing Substances Urine Bilirubin Urine Ictotest Urine Urobilinogen Ur Leukocyte Esterase Urine WBC (Auto) Urine RBC (Auto) U Epithel Cells (Auto) Urine Bacteria (Auto) Urine Yeast (Budding) Coronavirus (PCR) Crossmatch 10/05/21 10/05/21 10/05/21 15:25 17:30 23:03 WBC RBC Hgb Hct MCV MCH MCHC RDW Plt Count Add Manual Diff Total Counted Seg Neutrophils % Seg Neuts % (Manual) Band Neutrophils % Lymphocytes % (Manual) Reactive Lymphs % (Man) Monocytes % (Manual) Eosinophils % (Manual) Basophils % (Manual) Metamyelocytes % Myelocytes % Promyelocytes % Blast Cells % Nucleated RBC % Seg Neutrophils # Man Band Neutrophils # Lymphocytes # (Manual) Abs React Lymphs (Man) Monocytes # (Manual) Eosinophils # (Manual) Basophils # (Manual) Metamyelocytes # Myelocytes # Promyelocytes # Blast Cells # WBC Morphology Hypersegmented Neuts Hyposegmented Neuts Hypogranular Neuts Smudge Cells Toxic Granulation Toxic Vacuolation Dohle Bodies Pelger-Huet Anomaly Mery Rods Platelet Estimate Clumped Platelets Plt Clumps, EDTA Large Platelets Giant Platelets Platelet Satelliting Plt Morphology Comment RBC Morphology Dimorphic RBCs Polychromasia Hypochromasia Poikilocytosis Anisocytosis Microcytosis Macrocytosis Spherocytes Pappenheimer Bodies Sickle Cells Target Cells Tear Drop Cells Ovalocytes Helmet Cells [place] Bodies [place] Rings [place] Cells Bite Cells Crenated Cell Elliptocytes Acanthocytes (Spur) Rouleaux Hemoglobin C Crystals Schistocytes Malaria parasites Jonah Bodies Hem Pathologist Commnt Sodium Potassium Chloride Carbon Dioxide Anion Gap BUN Creatinine Estimated GFR BUN/Creatinine Ratio Glucose POC Glucose 410 H 337 H 276 H Lactic Acid Calcium NT-Pro-B Natriuret Pep Procalcitonin Urine Color Urine Turbidity Urine pH Ur Specific [place] Urine Protein Urine Glucose (UA) Urine Ketones Urine Blood Urine Nitrite Ur Reducing Substances Urine Bilirubin Urine Ictotest Urine Urobilinogen Ur Leukocyte Esterase Urine WBC (Auto) Urine RBC (Auto) U Epithel Cells (Auto) Urine Bacteria (Auto) Urine Yeast (Budding) Coronavirus (PCR) Crossmatch 10/05/21 10/06/21 10/06/21 Unknown 04:35 04:35 WBC 8.5 RBC 3.13 L Hgb 8.0 L Hct 25.8 L MCV 82 MCH 25 L MCHC 31 RDW 18.3 H Plt Count 350 Add Manual Diff Complete Total Counted 100 Seg Neutrophils % [place] Seg Neuts % (Manual) 96.0 H Band Neutrophils % 0 Lymphocytes % (Manual) 3.0 L Reactive Lymphs % (Man) 0 Monocytes % (Manual) 1.0 Eosinophils % (Manual) 0 Basophils % (Manual) 0 Metamyelocytes % 0 Myelocytes % 0 Promyelocytes % 0 Blast Cells % 0 Nucleated RBC % Not Reportable Seg Neutrophils # Man 8.2 H Band Neutrophils # 0.0 Lymphocytes # (Manual) 0.3 L Abs React Lymphs (Man) 0.0 Monocytes # (Manual) 0.1 Eosinophils # (Manual) 0.0 Basophils # (Manual) 0.0 Metamyelocytes # 0.0 Myelocytes # 0.0 Promyelocytes # 0.0 Blast Cells # 0.0 WBC Morphology Not Reportable Hypersegmented Neuts Not Reportable Hyposegmented Neuts Not Reportable Hypogranular Neuts Not Reportable Smudge Cells Not Reportable Toxic Granulation Not Reportable Toxic Vacuolation Not Reportable Dohle Bodies Not Reportable Pelger-Huet Anomaly Not Reportable Mery Rods Not Reportable Platelet Estimate Consistent w auto Clumped Platelets Not Reportable Plt Clumps, EDTA Not Reportable Large Platelets Not Reportable Giant Platelets Not Reportable Platelet Satelliting Not Reportable Plt Morphology Comment Not Reportable RBC Morphology Not Reportable Dimorphic RBCs Not Reportable Polychromasia Not Reportable Hypochromasia 1+ Poikilocytosis Not Reportable Anisocytosis Not Reportable Microcytosis Not Reportable Macrocytosis Not Reportable Spherocytes Not Reportable Pappenheimer Bodies Not Reportable Sickle Cells Not Reportable Target Cells Not Reportable Tear Drop Cells Not Reportable Ovalocytes Not Reportable Helmet Cells Not Reportable [place] Bodies Not Reportable [place] Rings Not Reportable [place] Cells Not Reportable Bite Cells Not Reportable Crenated Cell Not Reportable Elliptocytes Not Reportable Acanthocytes (Spur) Not Reportable Rouleaux Not Reportable Hemoglobin C Crystals Not Reportable Schistocytes Not Reportable Malaria parasites Not Reportable Jonah Bodies Not Reportable Hem Pathologist Commnt No Sodium 131 L Potassium 5.0 Chloride 97.0 L Carbon Dioxide 23 Anion Gap 16 BUN 22 H Creatinine 0.8 Estimated GFR > 60 BUN/Creatinine Ratio 28 Glucose 282 H POC Glucose Lactic Acid Calcium 8.6 NT-Pro-B Natriuret Pep Procalcitonin Urine Color Urine Turbidity Urine pH Ur Specific [place] Urine Protein Urine Glucose (UA) Urine Ketones Urine Blood Urine Nitrite Ur Reducing Substances Urine Bilirubin Urine Ictotest Urine Urobilinogen Ur Leukocyte Esterase Urine WBC (Auto) Urine RBC (Auto) U Epithel Cells (Auto) Urine Bacteria (Auto) Urine Yeast (Budding) Coronavirus (PCR) Negative Crossmatch 10/06/21 07:31 WBC RBC Hgb Hct MCV MCH MCHC RDW Plt Count Add Manual Diff Total Counted Seg Neutrophils % Seg Neuts % (Manual) Band Neutrophils % Lymphocytes % (Manual) Reactive Lymphs % (Man) Monocytes % (Manual) Eosinophils % (Manual) Basophils % (Manual) Metamyelocytes % Myelocytes % Promyelocytes % Blast Cells % Nucleated RBC % Seg Neutrophils # Man Band Neutrophils # Lymphocytes # (Manual) Abs React Lymphs (Man) Monocytes # (Manual) Eosinophils # (Manual) Basophils # (Manual) Metamyelocytes # Myelocytes # Promyelocytes # Blast Cells # WBC Morphology Hypersegmented Neuts Hyposegmented Neuts Hypogranular Neuts Smudge Cells Toxic Granulation Toxic Vacuolation Dohle Bodies Pelger-Huet Anomaly Mery Rods Platelet Estimate Clumped Platelets Plt Clumps, EDTA Large Platelets Giant Platelets Platelet Satelliting Plt Morphology Comment RBC Morphology Dimorphic RBCs Polychromasia Hypochromasia Poikilocytosis Anisocytosis Microcytosis Macrocytosis Spherocytes Pappenheimer Bodies Sickle Cells Target Cells Tear Drop Cells Ovalocytes Helmet Cells [place] Bodies [place] Rings [place] Cells Bite Cells Crenated Cell Elliptocytes Acanthocytes (Spur) Rouleaux Hemoglobin C Crystals Schistocytes Malaria parasites Jonah Bodies Hem Pathologist Commnt Sodium Potassium Chloride Carbon Dioxide Anion Gap BUN Creatinine Estimated GFR BUN/Creatinine Ratio Glucose POC Glucose 325 H Lactic Acid Calcium NT-Pro-B Natriuret Pep Procalcitonin Urine Color Urine Turbidity Urine pH Ur Specific [place] Urine Protein Urine Glucose (UA) Urine Ketones Urine Blood Urine Nitrite Ur Reducing Substances Urine Bilirubin Urine Ictotest Urine Urobilinogen Ur Leukocyte Esterase Urine WBC (Auto) Urine RBC (Auto) U Epithel Cells (Auto) Urine Bacteria (Auto) Urine Yeast (Budding) Coronavirus (PCR) Crossmatch
[2021-10-06] MEDS ORDERED: levETIRAcetam 500 MG in DEXTROSE 5% IN WATER 100 ML IV SCH (13:00)
--- NOTE | 2021-10-06 16:31 | Progress Note ---
Assessment and Plan Awaiting endoscopy. - Patient Problems (1) Severe anemia Current Visit: Yes Status: Acute (2) Acute heart failure with preserved ejection fraction (HFpEF) Current Visit: Yes Status: Acute (3) Elevated troponin Current Visit: Yes Status: Acute (4) CAD (coronary artery disease) Current Visit: Yes Status: Chronic Qualifiers: Coronary Disease-Associated Artery/Lesion type: [place] artery (5) Hx of CABG Current Visit: Yes Status: Chronic (6) H/O peptic ulcer Current Visit: Yes Status: Chronic (7) Hypertension Current Visit: Yes Status: Chronic Qualifiers: Hypertension type: primary hypertension Qualified Code(s): I10 - Essential (primary) hypertension (8) Stenosis of left internal carotid artery Current Visit: Yes Status: Chronic (9) COPD (chronic obstructive pulmonary disease) Current Visit: Yes Status: Chronic (10) Diabetes mellitus Current Visit: Yes Status: Chronic Subjective Date of service: 10/06/21 Principal diagnosis: Anemia, Acute HF, Elevated Tn Interval history: She feels fine. Objective Vital Signs Last Vital Signs Temp 97.3 F L 10/06/21 12:03 Pulse 75 10/06/21 14:37 Resp 18 10/06/21 14:37 BP 130/62 10/06/21 13:33 Pulse Ox 98 10/06/21 11:00 - Physical Examination General: No Apparent Distress HEENT: Positive: EOMI, Normocephaly, Mucus Membranes Moist Neck: Positive: neck supple, trachea midline Cardiac: Positive: Reg Rate and Rhythm Lungs: Positive: clear to auscultation Neuro: Positive: Grossly Intact Abdomen: Positive: Soft, Active Bowel Sounds. Negative: Tender Skin: Negative: Rash Musculoskeletal: Normal Range of Motion Extremities: Absent: edema - Labs and Meds CBC 10/06/21 Range/Units 04:35 WBC 8.5 (4.5-11.0) K/mm3 RBC 3.13 L (3.65-5.03) M/mm3 Hgb 8.0 L (10.1-14.3) gm/dl Hct 25.8 L (30.3-42.9) % Plt Count 350 (140-440) K/mm3 Comprehensive Metabolic Panel 10/06/21 Range/Units 04:35 Sodium 131 L (137-145) mmol/L Potassium 5.0 (3.6-5.0) mmol/L Chloride 97.0 L (98-107) mmol/L Carbon Dioxide 23 (22-30) mmol/L BUN 22 H (7-17) mg/dL Creatinine 0.8 (0.6-1.2) mg/dL Glucose 282 H (65-100) mg/dL Calcium 8.6 (8.4-10.2) mg/dL - Imaging and Cardiology Echo: pending, report reviewed Cardiac cath: report reviewed - Telemetry EKG Rhythm: Sinus Rhythm Myocardial infarction: anterior NC (old age or i
[2021-10-06] MEDS ORDERED: DEXTROSE 50% IN WATER (25GM) 50 ML SYRINGE IV PRN (16:53)
[2021-10-06] MEDS ORDERED: INSULIN REGULAR, HUMAN 100 UNITS/1 ML SUB-Q ONE (16:55)
--- NOTE | 2021-10-06 17:39 | Consultation ---
History of Present Illness - Reason for Consult Consult date: 10/06/21 [place]TAZ[place] Requesting physician: VAN BROOKS - History of Present Illness 71-year-old female with a history of COPD and tobacco abuse was brought to the emergency room because shortness of breath that started couple of days ago associated with minimally productive cough progressively getting worse. No fever or chills reported. Patient came in with EMS and was given Solu-Medrol, DuoNeb, and magnesium. She reported feeling a little better with the treatment. No other modifying or associated factors reported. In the emergency room patient is found to have a hemoglobin of 5.3, hematocrit 17.6, lactic acid 4.00, glucose 303, troponin 0.101, chest x-ray shows cardiomegaly with pulmonary edema. Bibasilar opacities which may represent atelectasis however infectious process should be considered in the appropriate clinical setting. Bilateral right greater than left pleural effusion Vascular consulted for CT scan demonstrating carotid artery stenosis with abnormal ultrasound findings. The patient has a history of cervical spine ACDF and reports weakness of the bilateral upper extremities when she moves about much. She also has weakness left side worse than right in her hand. She has a palpable left radial and ulnar pulse. Nonpalpable right radial and ulnar pulse. Nonpalpable right pedal pulses. Status post left above-knee amputation. Patient denies TIA symptoms. 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 She is now blind in the right eye. Denies any hemiparesis, hemianesthesia, amaurosis fugax, or aphasia requiring h ospitalization. Carotid artery disease is not symptomatic. Past History Past Medical History: COPD, diabetes, GERD, heart failure, hypertension, hyperlipidemia Past Surgical History: CABG, Other (Neck surgery, back surgery, stents placed in legs?, L leg amputation) Social history: smoking Family history: hypertension Medications and Allergies Allergies Allergy/AdvReac Type Severity Reaction Status Date / Time acetaminophen [From Tylenol] Allergy CAUSES Verified 05/25/21 16:48 ISSUE WITH LIVER Antihistamines - Alkylamine Allergy Shortness Verified 05/25/21 16:48 of Breath codeine Allergy Headache Verified 05/25/21 16:48 Penicillins Allergy Angioedema Verified 05/25/21 16:48 Sulfa (Sulfonamide Allergy Rash Verified 05/25/21 16:48 Antibiotics) ANTIBIOTICS Allergy Severe EXTREME Uncoded 05/25/21 16:48 STOMACH PAIN Home Medications Medication Instructions Recorded Confirmed Last Taken Type DULoxetine [Cymbalta] 30 mg PO BID 10/06/21 10/06/21 Unknown History Furosemide [Lasix] 40 mg PO DAILY 10/06/21 10/06/21 Unknown History Metformin HCl [metFORMIN] 1,000 mg PO BID 10/06/21 10/06/21 Unknown History Omeprazole 40 mg PO DAILY 10/06/21 10/06/21 Unknown History Primidone [Mysoline] 50 mg PO BID 10/06/21 10/06/21 Unknown History Rosuvastatin (Nf) [Crestor] 10 mg PO QHS 10/06/21 10/06/21 Unknown History glipiZIDE [Glucotrol] 10 mg PO DAILY 10/06/21 10/06/21 Unknown History levETIRAcetam [Keppra TAB] 500 mg PO BID 10/06/21 10/06/21 Unknown History propranoloL [Inderal] 20 mg PO DAILY 10/06/21 10/06/21 Unknown History Active Meds: Active Medications Albuterol (Albuterol 2.5 Mg/3 Ml Nebu) 2.5 mg IH Q3HRT PRN PRN Reason: Shortness Of Breath Albuterol/Ipratropium (Ipratropium/Albuterol Sulfate 3 Ml Ampul.Neb) 1 ampul IH Q6HRT [facility] Last Admin: 10/06/21 14:36 Dose: 1 ampul Arformoterol Tartrate (Arformoterol 15 Mcg/2 Ml Nebu) 15 mcg IH Q12HRT [facility] Last Admin: 10/06/21 08:30 Dose: 15 mcg Atorvastatin Calcium (Atorvastatin 40 Mg Tab) 40 mg PO DAILY [facility] Last Admin: 10/06/21 09:19 Dose: 40 mg Atorvastatin Calcium (Atorvastatin 20 Mg Tab) 20 mg PO QHS [facility] Budesonide (Budesonide 0.5 Mg/2 Ml Nebu) 0.5 mg IH Q12HRT [facility] Last Admin: 10/06/21 08:30 Dose: 0.5 mg Citalopram Hydrobromide (Citalopram 20 Mg Tab) 20 mg PO DAILY [facility] Last Admin: 10/06/21 09:19 Dose: 20 mg Dextrose (Dextrose 50% In Water (25gm) 50 Ml Syringe) 50 ml IV Q30MIN PRN; Protocol PRN Reason: Hypoglycemia Gabapentin (Gabapentin 300 Mg Cap) 900 mg PO BID [facility] Last Admin: 10/06/21 09:18 Dose: 900 mg Glipizide (Glipizide 10 Mg Tab) 10 mg PO DAILY [facility] Insulin Human Isoph/Insulin Regular (Insulin Nph/Regular 70/30 Inj) 10 unit SUB-Q BIDDIAB [facility] Insulin Human Regular (Insulin Regular, Human 100 Units/1 Ml) 0 units SUB-Q ACHS [facility]; Protocol Levetiracetam (Levetiracetam 500 Mg Tab) 500 mg PO BID [facility] Metformin HCl (Metformin 500 Mg Tab) 1,000 mg PO BID [facility] Morphine Sulfate (Morphine 2 Mg/1 Ml Inj) 2 mg IV Q4H PRN PRN Reason: Pain, Moderate (4-6) Morphine Sulfate (Morphine 4 Mg/1 Ml Inj) 4 mg IV Q4H PRN PRN Reason: Pain , Severe (7-10) Ondansetron HCl (Ondansetron 4 Mg/2 Ml Inj) 4 mg IV Q8H PRN PRN Reason: Nausea And Vomiting Pantoprazole Sodium (Pantoprazole 40 Mg Tab) 40 mg PO BID [facility] Last Admin: 10/06/21 09:18 Dose: 40 mg Polyethylene Glycol/Electrolytes (Polyethylene Glycol/Elect Soln 4000 Ml) 4,000 ml PO ONCE [facility] Stop: 10/08/21 00:00 Potassium Chloride (Potassium Chloride Er 10 Meq Tab) 10 meq PO DAILY [facility] Last Admin: 10/06/21 09:19 Dose: Not Given Propranolol HCl (Propranolol 10 Mg Tab) 10 mg PO TID [facility] Last Admin: 10/06/21 13:33 Dose: 10 mg Quetiapine Fumarate (Quetiapine 25 Mg Tab) 12.5 mg PO QHS [facility] Sodium Chloride (Sodium Chloride 0.9% 10 Ml Flush Syringe) 10 ml IV BID [facility] Last Admin: 10/06/21 09:20 Dose: 10 ml Sodium Chloride (Sodium Chloride 0.9% 10 Ml Flush Syringe) 10 ml IV PRN PRN PRN Reason: LINE FLUSH Review of Systems All systems: negative (see HPI) Exam - Constitutional Vitals: Temp Pulse Resp BP Pulse Ox 97.5 F L 81 18 129/45 94 10/06/21 16:36 10/06/21 16:36 10/06/21 16:36 10/06/21 16:36 10/06/21 16:36 General appearance: Present: no acute distress - EENT ENT: hearing intact - Neck Neck: Present: supple - Respiratory Respiratory effort: normal - Extremities Extremities: pulses intact (left upper extremity radial and ulnar pulse palpable), normal temperature, normal color, abnormal (left AKA, right nonpalpable pedal pulses) Extremity abnormal: pulses diminished (right pedal pulses nonpalpable, right radial and ulnar pulse nonpalpable) - Abdominal General gastrointestinal: Present: soft, non-tender - Psychiatric Psychiatric: appropriate mood/affect, intact judgment & insight, cooperative Results - Labs CBC & Chem 7: 10/07/21 08:57 10/07/21 08:57 Labs: Abnormal lab results 10/05/21 10/05/21 10/06/21 Range/Units 00:45 23:03 04:35 RBC 3.13 L (3.65-5.03) M/mm3 Hgb 8.0 L (10.1-14.3) gm/dl Hct 25.8 L (30.3-42.9) % MCH 25 L (28-32) pg RDW 18.3 H (13.2-15.2) % Seg Neuts % (Manual) 96.0 H (40.0-70.0) % Lymphocytes % (Manual) 3.0 L (13.4-35.0) % Seg Neutrophils # Man 8.2 H (1.8-7.7) K/mm3 Lymphocytes # (Manual) 0.3 L (1.2-5.4) K/mm3 Sodium (137-145) mmol/L Chloride (98-107) mmol/L BUN (7-17) mg/dL Glucose (65-100) mg/dL POC Glucose 276 H (70-105) mg/dL Troponin T (0.00-0.029) ng/mL Crossmatch See Detail 10/06/21 10/06/21 10/06/21 Range/Units 04:35 04:35 07:31 RBC (3.65-5.03) M/mm3 Hgb (10.1-14.3) gm/dl Hct (30.3-42.9) % MCH (28-32) pg RDW (13.2-15.2) % Seg Neuts % (Manual) (40.0-70.0) % Lymphocytes % (Manual) (13.4-35.0) % Seg Neutrophils # Man (1.8-7.7) K/mm3 Lymphocytes # (Manual) (1.2-5.4) K/mm3 Sodium 131 L (137-145) mmol/L Chloride 97.0 L (98-107) mmol/L BUN 22 H (7-17) mg/dL Glucose 282 H (65-100) mg/dL POC Glucose 325 H (70-105) mg/dL Troponin T 0.214 H* D (0.00-0.029) ng/mL Crossmatch 10/06/21 10/06/21 Range/Units 12:00 16:34 RBC (3.65-5.03) M/mm3 Hgb (10.1-14.3) gm/dl Hct (30.3-42.9) % MCH (28-32) pg RDW (13.2-15.2) % Seg Neuts % (Manual) (40.0-70.0) % Lymphocytes % (Manual) (13.4-35.0) % Seg Neutrophils # Man (1.8-7.7) K/mm3 Lymphocytes # (Manual) (1.2-5.4) K/mm3 Sodium (137-145) mmol/L Chloride (98-107) mmol/L BUN (7-17) mg/dL Glucose (65-100) mg/dL POC Glucose 209 H 328 H (70-105) mg/dL Troponin T (0.00-0.029) ng/mL Crossmatch Assessment and Plan 71-year-old female with anemia and multiple medical issues who was incidentally found to have carotid artery stenosis and had carotid work-up with abnormal upper extremity ultrasounds. 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 She has palpable left-sided radial and ulnar pulses and nonpalpable right radial and ulnar pulses, but her left side is weaker than her right, and she has a history of cervical spine fusion. Suspect recurrent cervical spine issues causing weakness. Although there may be underlying right upper extremity claudication, I suspect her symptoms are due to cervical neurologic issues. Patient has an asymptomatic left internal carotid artery stenosis, and low flow velocities in the right internal carotid artery and common carotid artery. Suspect the right sided low flow velocities are due to the innominate artery stenosis. Recommend CT angiogram of the neck. Once GI issues are addressed, if cardiology can perform preoperative clearance, then when patient follows up in clinic, she can be scheduled for outpatient surgery. This is all dependent on whether the patient's GI issues/anemia can be properly addressed, as carotid endarterectomy will require subsequent Plavix administration. Follow-up with vascular in 2 to 4 weeks as outpatient.
[2021-10-06] MEDS: glipiZIDE 10 MG TAB PO SCH (17:42)
[2021-10-06] MEDS: QUEtiapine 25 MG TAB PO SCH (21:51)
[2021-10-06] MEDS: levETIRAcetam 500 MG TAB PO SCH (21:51)
[2021-10-06] MEDS: metFORMIN 500 MG TAB PO SCH (21:52)
[2021-10-06] MEDS: INSULIN REGULAR, HUMAN 100 UNITS/1 ML SUB-Q SCH (21:54)
[2021-10-06] MEDS ORDERED: PROPRANOLOL 40 MG TAB ONE (21:59)
[2021-10-06] MEDS ORDERED: NON-FORMULARY EACH (Metformin Hcl [Metformin] 1,000 MG Tablet) PO SCH (22:00)
[2021-10-06] MEDS ORDERED: NON-FORMULARY EACH (Rosuvastatin (Nf) 5 MG Tablet) PO SCH (22:00)
[2021-10-06] MEDS: INSULIN NPH/REGULAR 70/30 INJ SUB-Q SCH (22:43)
[2021-10-07] MEDS: IPRATROPIUM/ALBUTEROL SULFATE 3 ML AMPUL.NEB IH SCH ×4 (01:37→20:41)
[2021-10-07] MEDS: INSULIN REGULAR, HUMAN 100 UNITS/1 ML SUB-Q SCH ×4 (08:25→21:56)
[2021-10-07] MEDS: BUDESONIDE 0.5 MG/2 ML NEBU IH SCH ×2 (08:52→20:41)
[2021-10-07] MEDS: ARFORMOTEROL 15 MCG/2 ML NEBU IH SCH ×2 (08:52→20:41)
--- NOTE | 2021-10-07 09:17 | Cat Scan Report ---
CTA NECK WITH CONTRAST 10/07/2021 INDICATION / CLINICAL INFORMATION: carotid artery stenosis, innominate artery stenosi. COMPARISON: None. TECHNIQUE: Routine CTA of the neck is performed. 3-D/MIP reformats were postprocessed. Percentage st enosis is determined by direct quantitative measurements of diseased internal carotid artery diameter compared with normal distal internal carotid artery reference segments or by criteria similar to HAMZAH CET where applicable. All CT scans at this location are performed using CT dose reduction for ALARA b y means of automated exposure control. CONTRAST: 100 ml of Omnipaque 350 FINDINGS: Carotid bifurcations: At the right bifurcation, prominent atherosclerotic calcifications are present. There is severe stenosis of the distal common carotid artery associated with 70% stenosis of the pro ximal right internal carotid artery. In addition, there is additional calcification and a additional level of stenosis in the range of 70% approximately 1 cm above the bifurcation. In addition, addition al focal area of calcification and high-grade stenosis is present in the upper right ICA, just below the skull base. In the left bifurcation, prominent atherosclerotic plaque and calcification is present at the bifurca tion. This results in severe stenosis of the distal common carotid artery. The proximal left internal carotid artery is widely patent at the level of the carotid bulb, although bifurcation itself in the origin of the vessel there is significant narrowing. Carotid arteries: Atherosclerotic stenosis in the upper right ICA as mentioned above. The middle righ t common carotid artery shows additional areas of atherosclerotic stenosis. Also, the origin of the r ight common carotid artery at the aortic arch is somewhat difficult to define, which appears to be du e to a combination of atherosclerotic plaque and stenosis involving the innominate artery. Cervical vertebral arteries: Left vertebral artery is dominant. Prominent atherosclerotic changes griffin cification associated with the subclavian artery at the origin of the left vertebral artery as well a s at this chronic changes involving the origin of the right vertebral artery along the course of the subclavian artery on the right. Aortic arch: There is pronounced atherosclerotic calcification and plaque at the origin of the right innominate artery at the aortic arch. Successful appears to be significantly or completely occluded. The presence of trace amount of contrast enhancement is difficult to exclude due to the combined lars fact from patient motion, calcification, and the injected contrast bolus which is present in the righ t subclavian vein. There is evidence of bilateral pleural effusions, left greater than right. Patchy pulmonary infiltrat es and areas of scarring are present in the visualized portions of the upper lung pérez. IMPRESSION: Extensive atherosclerotic changes as detailed above. Signer Name: Jefferson Funk MD Signed: 10/07/2021 9:13 AM Workstation Name: [id number]
--- NOTE | 2021-10-07 09:45 | Progress Note ---
Assessment and Plan Assessment and plan: #Significant normocytic anemiaimproving Hemoglobin 5.3--> 8.0 Transfusing 2-3 units packed RBCs. Continue to trend H&H. Patient denies hemoptysis, hematemesis, melena, or hematochezia. Continue p.o. PPI twice daily. Gastroenterology consulted; appreciate recs. Anticipating upper and lower endoscopy as early as tomorrow (if patient is deemed medically stable to proceed based on cardiac evaluation with TTE). Continue clear liquid diet, patient will be n.p.o. at midnight for endoscopy on 10/08/2021. Transfuse if hemoglobin <7 or patient becomes symptomatic. #Urinary obstruction Continue Sanchez placement. Ordered bilateral renal ultrasound to assess for possible obstruction. #Pulmonary edema Status post IV Lasix 40 mg x 1. Pending TTE read to evaluate cardiac function. Continue to monitor. #Presumed COPD exacerbationruled out #Acute hypoxic respiratory failure Low clinical suspicion for COPD exacerbation as the patient had severe anemia and could have resulted in shortness of breath and the need for supplemental oxygen. Continue DuoNebs every 4 hours and albuterol nebs every 4 hours as needed. Discontinue IV methylprednisolone 40 mg every 12 hours. Discontinue Levaquin 750 mg daily Currently on 2 L nasal cannula. Continue to wean as tolerated. #Elevated troponin Likely secondary to demand ischemia in the setting of significant anemia. Pending TTE to evaluate cardiac function. Cardiology consulted; appreciate recs #Left ICA stenosis Carotid Doppler ultrasound revealing >70% stenosis. Vascular surgery recommending CT angiogram of neck. Patient can follow-up with them in outpatient setting for endarterectomy. She will follow-up with vascular in 2-4 weeks. #Non-insulin dependent type II diabetes mellitus - hemoglobin A1c: Unknown - home regimen: Metformin 1000 mg twice daily, glipizide 2.5 mg daily - current regimen: Moderate SSI, metformin 1000 mg twice daily, glipizide 2.5 mg daily, NPH 70/30 10 units twice daily - blood glucose goal 140-180 while inpatient - continue to monitor #Seizure disorder Continue Keppra 500 mg twice daily #History of chronic pain Continue citalopram 20 mg daily, duloxetine 60 mg daily, venlafaxine 100 mg twice daily #Lactic acidosis Lactic acid 2.8. Continue to trend until resolved. #History of acute ischemic CVA Currently holding aspirin in the setting of GI bleed. Continue atorvastatin 40 mg daily. #GERD Continue home pantoprazole 40 mg daily #Insomnia Starting Seroquel 12.5 mg nightly. Continue to monitor. #Obesity #Weight loss counseling #Exercise counseling - BMI 30.0 - Counseled patient on the importance of weight loss, incorporating exercise, and dietary changes (lean meats, fresh fruits and vegetables, and water intake). Patient expresses understanding. - Time: +15 min #Advanced care planning -Disease education conducted, care plan discussed, diagnoses discussed, prognosis discussed, and patient acknowledges understanding with care plan -Time: +30 min Disposition Plan: Continue medical management Total Time Spent with Patient (Minutes): 45 minutes History Interval history: No acute events overnight. Hospitalist Physical - Constitutional Vitals: Temp Pulse Resp BP Pulse Ox 98.7 F 62 18 147/53 92 10/07/21 07:26 10/07/21 07:26 10/07/21 07:26 10/07/21 07:26 10/07/21 07:28 General appearance: Present: no acute distress, well-nourished, obese - EENT Eyes: Present: PERRL, EOM intact ENT: hearing intact, clear oral mucosa, dentition normal - Neck Neck: Present: supple, normal ROM - Respiratory Respiratory effort: normal Respiratory: bilateral: diminished (2 L nasal cannula) - Cardiovascular Rhythm: regular Heart Sounds: Present: S1 & S2 - Extremities Extremities: no ischemia, pulses intact, pulses symmetrical, No edema, normal temperature, normal color, abnormal (Left AKA) Peripheral Pulses: within normal limits - Abdominal General gastrointestinal: soft, non-tender, non-distended, normal bowel sounds - Integumentary Integumentary: Present: clear, warm, dry - Psychiatric Psychiatric: appropriate mood/affect, intact judgment & insight, memory intact, cooperative - Neurologic Neurologic: CNII-XII intact, moves all extremities - Allied Health Allied health notes reviewed: nursing HEART Score - HEART Score Troponin: Troponin T 0.214 ng/mL (0.00-0.029) H* D 10/06/21 04:35 Results - Labs CBC & Chem 7: 10/06/21 04:35 10/06/21 04:35 Labs: Laboratory Last Values WBC 8.5 K/mm3 (4.5-11.0) 10/06/21 04:35 RBC 3.13 M/mm3 (3.65-5.03) L 10/06/21 04:35 Hgb 8.0 gm/dl (10.1-14.3) L 10/06/21 04:35 Hct 25.8 % (30.3-42.9) L 10/06/21 04:35 MCV 82 fl (79-97) 10/06/21 04:35 MCH 25 pg (28-32) L 10/06/21 04:35 MCHC 31 % (30-34) 10/06/21 04:35 RDW 18.3 % (13.2-15.2) H 10/06/21 04:35 Plt Count 350 K/mm3 (140-440) 10/06/21 04:35 [place] % (Auto) 3.0 % (0.0-7.3) 10/04/21 22:33 Eos % (Auto) 0.1 % (0.0-4.3) 10/04/21 22:33 [place] # (Auto) 0.4 K/mm3 (0.0-0.8) 10/04/21 22:33 Eos # (Auto) 0.0 K/mm3 (0.0-0.4) 10/04/21 22:33 Baso # (Auto) 0.0 K/mm3 (0.0-0.1) 10/04/21 22:33 Add Manual Diff Complete 10/06/21 04:35 Total Counted 100 10/06/21 04:35 Seg Neutrophils % [place] 10/06/21 04:35 Seg Neuts % (Manual) 96.0 % (40.0-70.0) H 10/06/21 04:35 Band Neutrophils % 0 % 10/06/21 04:35 Lymphocytes % (Manual) 3.0 % (13.4-35.0) L 10/06/21 04:35 Reactive Lymphs % (Man) 0 % 10/06/21 04:35 Monocytes % (Manual) 1.0 % (0.0-7.3) 10/06/21 04:35 Eosinophils % (Manual) 0 % (0.0-4.3) 10/06/21 04:35 Basophils % (Manual) 0 % (0.0-1.8) 10/06/21 04:35 Metamyelocytes % 0 % 10/06/21 04:35 Myelocytes % 0 % 10/06/21 04:35 Promyelocytes % 0 % 10/06/21 04:35 Blast Cells % 0 % 10/06/21 04:35 Nucleated RBC % Not Reportable 10/06/21 04:35 Seg Neutrophils # 10.8 K/mm3 (1.8-7.7) H 10/04/21 22:33 Seg Neutrophils # Man 8.2 K/mm3 (1.8-7.7) H 10/06/21 04:35 Band Neutrophils # 0.0 K/mm3 10/06/21 04:35 Lymphocytes # (Manual) 0.3 K/mm3 (1.2-5.4) L 10/06/21 04:35 Abs React Lymphs (Man) 0.0 K/mm3 10/06/21 04:35 Monocytes # (Manual) 0.1 K/mm3 (0.0-0.8) 10/06/21 04:35 Eosinophils # (Manual) 0.0 K/mm3 (0.0-0.4) 10/06/21 04:35 Basophils # (Manual) 0.0 K/mm3 (0.0-0.1) 10/06/21 04:35 Metamyelocytes # 0.0 K/mm3 10/06/21 04:35 Myelocytes # 0.0 K/mm3 10/06/21 04:35 Promyelocytes # 0.0 K/mm3 10/06/21 04:35 Blast Cells # 0.0 K/mm3 10/06/21 04:35 WBC Morphology Not Reportable 10/06/21 04:35 Hypersegmented Neuts Not Reportable 10/06/21 04:35 Hyposegmented Neuts Not Reportable 10/06/21 04:35 Hypogranular Neuts Not Reportable 10/06/21 04:35 Smudge Cells Not Reportable 10/06/21 04:35 Toxic Granulation Not Reportable 10/06/21 04:35 Toxic Vacuolation Not Reportable 10/06/21 04:35 Dohle Bodies Not Reportable 10/06/21 04:35 Pelger-Huet Anomaly Not Reportable 10/06/21 04:35 Mery Rods Not Reportable 10/06/21 04:35 Platelet Estimate Consistent w auto 10/06/21 04:35 Clumped Platelets Not Reportable 10/06/21 04:35 Plt Clumps, EDTA Not Reportable 10/06/21 04:35 Large Platelets Not Reportable 10/06/21 04:35 Giant Platelets Not Reportable 10/06/21 04:35 Platelet Satelliting Not Reportable 10/06/21 04:35 Plt Morphology Comment Not Reportable 10/06/21 04:35 RBC Morphology Not Reportable 10/06/21 04:35 Dimorphic RBCs Not Reportable 10/06/21 04:35 Polychromasia Not Reportable 10/06/21 04:35 Hypochromasia 1+ 10/06/21 04:35 Poikilocytosis Not Reportable 10/06/21 04:35 Anisocytosis Not Reportable 10/06/21 04:35 Microcytosis Not Reportable 10/06/21 04:35 Macrocytosis Not Reportable 10/06/21 04:35 Spherocytes Not Reportable 10/06/21 04:35 Pappenheimer Bodies Not Reportable 10/06/21 04:35 Sickle Cells Not Reportable 10/06/21 04:35 Target Cells Not Reportable 10/06/21 04:35 Tear Drop Cells Not Reportable 10/06/21 04:35 Ovalocytes Not Reportable 10/06/21 04:35 Helmet Cells Not Reportable 10/06/21 04:35 [place] Bodies Not Reportable 10/06/21 04:35 [place] Rings Not Reportable 10/06/21 04:35 [place] Cells Not Reportable 10/06/21 04:35 Bite Cells Not Reportable 10/06/21 04:35 Crenated Cell Not Reportable 10/06/21 04:35 Elliptocytes Not Reportable 10/06/21 04:35 Acanthocytes (Spur) Not Reportable 10/06/21 04:35 Rouleaux Not Reportable 10/06/21 04:35 Hemoglobin C Crystals Not Reportable 10/06/21 04:35 Schistocytes Not Reportable 10/06/21 04:35 Malaria parasites Not Reportable 10/06/21 04:35 Jonah Bodies Not Reportable 10/06/21 04:35 Hem Pathologist Commnt No 10/06/21 04:35 PT 14.9 Sec. (12.2-14.9) 10/04/21 22:33 INR 1.05 (0.87-1.13) 10/04/21 22:33 APTT 28.2 Sec. (24.2-36.6) 10/04/21 22:33 D-Dimer 1435.30 ng/mlDDU (0-234) H 10/04/21 22:33 Sodium 131 mmol/L (137-145) L 10/06/21 04:35 Potassium 5.0 mmol/L (3.6-5.0) 10/06/21 04:35 Chloride 97.0 mmol/L (98-107) L 10/06/21 04:35 Carbon Dioxide 23 mmol/L (22-30) 10/06/21 04:35 Anion Gap 16 mmol/L 10/06/21 04:35 BUN 22 mg/dL (7-17) H 10/06/21 04:35 Creatinine 0.8 mg/dL (0.6-1.2) 10/06/21 04:35 Estimated GFR > 60 ml/min 10/06/21 04:35 BUN/Creatinine Ratio 28 % 10/06/21 04:35 Glucose 282 mg/dL (65-100) H 10/06/21 04:35 POC Glucose 78 mg/dL (70-105) 10/07/21 07:24 Hemoglobin A1c 6.0 % (4-6) 10/07/21 Unknown Lactic Acid 2.80 mmol/L (0.7-2.0) H* 10/05/21 14:27 Calcium 8.6 mg/dL (8.4-10.2) 10/06/21 04:35 Total Bilirubin 0.20 mg/dL (0.1-1.2) 10/04/21 22:33 AST 20 units/L (5-40) 10/04/21 22:33 ALT 7 units/L (7-56) 10/04/21 22:33 Alkaline Phosphatase 97 units/L (35-129) 10/04/21 22:33 Troponin T 0.214 ng/mL (0.00-0.029) H* D 10/06/21 04:35 NT-Pro-B Natriuret Pep 16360 pg/mL (0-900) H 10/05/21 14:27 Total Protein 6.1 g/dL (6.3-8.2) L 10/04/21 22: Albumin 2.7 g/dL (3.9-5) L 10/04/21 22: Albumin/Globulin Ratio 0.8 % 10/04/21 22:33 Triglycerides 145 mg/dL (2-149) 10/04/21 22:33 Cholesterol 124 mg/dL (50-199) 10/04/21 22:33 LDL Cholesterol Direct 56 mg/dL (50-130) 10/04/21 22: HDL Cholesterol 42 mg/dL (40-59) 10/04/21 22: Cholesterol/HDL Ratio 2.95 % 10/04/21 22: Procalcitonin 0.64 ng/mL (<0.15) 10/05/21 14:27 Urine Color Yellow (Yellow) 10/04/21 13:53 Urine Turbidity Clear (Clear) 10/04/21 13:53 Urine pH 6.5 (5.0-7.0) 10/04/21 13:53 Ur Specific [place] 1.010 (1.003-1.030) 10/04/21 13:53 Urine Protein 30 mg/dl mg/dL (Negative) 10/04/21 13:53 Urine Glucose (UA) Negative mg/dL (Negative) 10/04/21 13:53 Urine Ketones Negative mg/dL (Negative) 10/04/21 13:53 Urine Blood Trace (Negative) 10/04/21 13:53 Urine Nitrite Positive (Negative) 10/04/21 13:53 Ur Reducing Substances Not Reportable 10/04/21 13:53 Urine Bilirubin Negative (Negative) 10/04/21 13:53 Urine Ictotest Not Reportable 10/04/21 13:53 Urine Urobilinogen < 2.0 mg/dL (<2.0) 10/04/21 13:53 Ur Leukocyte Esterase Small (Negative) 10/04/21 13:53 Urine WBC (Auto) 55.0 /HPF (0.0-6.0) H 10/04/21 13:53 Urine RBC (Auto) 2.0 /HPF (0.0-6.0) 10/04/21 13:53 U Epithel Cells (Auto) < 1.0 /HPF (0-13.0) 10/04/21 13:53 Urine Bacteria (Auto) 1+ /HPF (Negative) 10/04/21 13:53 Urine Yeast (Budding) Few /HPF 10/04/21 13:53 Coronavirus (PCR) Negative (Negative) 10/05/21 Unknown Blood Type A NEGATIVE 10/05/21 00:45 Antibody Screen Negative 10/05/21 00:45 Crossmatch See Detail 10/05/21 00:45 Microbiology: Microbiology 10/04/21 13:53 Urine,Clean Catch Urine Culture - Preliminary NO GROWTH AFTER 24 HOURS Sanchez/IV: Voiding Method Indwelling Catheter Active Medications - Current Medications Current Medications: Generic Name Dose Route Start Last Admin Trade Name Freq PRN Reason Stop Dose Admin Albuterol 2.5 mg 10/05/21 01:13 Albuterol 2.5 Mg/3 Ml Nebu IH Q3HRT PRN Shortness Of Breath Albuterol/Ipratropium 1 ampul 10/05/21 08:00 10/07/21 08:52 Ipratropium/Albuterol Sulfate 3 Ml Ampul.Neb IH Not Given Q6HRT CHRISTOPHER Arformoterol Tartrate 15 mcg 10/05/21 08:00 10/07/21 08:52 Arformoterol 15 Mcg/2 Ml Nebu IH Not Given Q12HRT CHRISTOPHER Atorvastatin Calcium 40 mg 10/05/21 10:00 10/06/21 09:19 Atorvastatin 40 Mg Tab PO 40 mg DAILY CHRISTOPHER Administration Atorvastatin Calcium 20 mg 10/06/21 22:00 10/06/21 21:53 Atorvastatin 20 Mg Tab PO 20 mg QHS CHRISTOPHER Administration Budesonide 0.5 mg 10/05/21 08:00 10/07/21 08:52 Budesonide 0.5 Mg/2 Ml Nebu IH Not Given Q12HRT CHRISTOPHER Citalopram Hydrobromide 20 mg 10/05/21 10:00 10/06/21 09:19 Citalopram 20 Mg Tab PO 20 mg DAILY CHRISTOPHER Administration Dextrose 50 ml 10/06/21 16:53 Dextrose 50% In Water (25gm) 50 Ml Syringe IV Q30MIN PRN Hypoglycemia Protocol Gabapentin 900 mg 10/05/21 10:00 10/06/21 21:53 Gabapentin 300 Mg Cap PO 900 mg BID CHRISTOPHER Administration Glipizide 10 mg 10/06/21 17:00 10/06/21 17:42 Glipizide 10 Mg Tab PO 10 mg DAILY CHRISTOPHER Administration Insulin Human Isoph/Insulin Regular 10 unit 10/06/21 17:00 10/06/21 22:43 Insulin Nph/Regular 70/30 Inj SUB-Q Not Given BIDDIAB CHRISTOPHER Insulin Human Regular 0 units 10/06/21 22:00 10/07/21 08:25 Insulin Regular, Human 100 Units/1 Ml SUB-Q Not Given ACHS [facility] Protocol Levetiracetam 500 mg 10/06/21 22:00 10/06/21 21:51 Levetiracetam 500 Mg Tab PO 500 mg BID CHRISTOPHER Administration Metformin HCl 1,000 mg 10/06/21 22:00 10/06/21 21:52 Metformin 500 Mg Tab PO Not Given BID CHRISTOPHER Morphine Sulfate 2 mg 10/05/21 01:13 Morphine 2 Mg/1 Ml Inj IV Q4H PRN Pain, Moderate (4-6) Morphine Sulfate 4 mg 10/05/21 01:13 Morphine 4 Mg/1 Ml Inj IV Q4H PRN Pain , Severe (7-10) Ondansetron HCl 4 mg 10/05/21 01:13 Ondansetron 4 Mg/2 Ml Inj IV Q8H PRN Nausea And Vomiting Pantoprazole Sodium 40 mg 10/05/21 10:00 10/06/21 21:51 Pantoprazole 40 Mg Tab PO 40 mg BID CHRISTOPHER Administration Polyethylene Glycol/Electrolytes 4,000 ml 10/07/21 17:00 Polyethylene Glycol/Elect Soln 4000 Ml PO 10/08/21 00:00 ONCE CHRISTOPHER Potassium Chloride 10 meq 10/05/21 10:00 10/06/21 09:19 Potassium Chloride Er 10 Meq Tab PO Not Given DAILY CHRISTOPHER Propranolol HCl 10 mg 10/05/21 08:00 10/06/21 21:35 Propranolol 10 Mg Tab PO 10 mg TID CHRISTOPHER Administration Quetiapine Fumarate 12.5 mg 10/06/21 22:00 10/06/21 21:51 Quetiapine 25 Mg Tab PO 12.5 mg QHS CHRISTOPHER Administration Sodium Chloride 10 ml 10/05/21 10:00 10/06/21 22:08 Sodium Chloride 0.9% 10 Ml Flush Syringe IV 10 ml BID CHRISTOPHER Administration Sodium Chloride 10 ml 10/05/21 01:13 Sodium Chloride 0.9% 10 Ml Flush Syringe IV PRN PRN LINE FLUSH
--- NOTE | 2021-10-07 09:52 | Gastroenterology Progress Note ---
Assessment and Plan Reviewed with patient his, evaluation, we will proceed with EGD and colonoscopy tomorrow for diagnosis and treatment of underlying anemia Differential diagnosis includes polyps, AVMs, ulcer, etc. - Patient Problems (1) Anemia Current Visit: Yes Status: Acute Qualifiers: Anemia type: unspecified type Qualified Code(s): D64.9 - Anemia, unspecified Subjective Date of service: 10/07/21 Principal diagnosis: Anemia, Acute HF, Elevated Tn Interval history: Patient denies overt bleeding Spoke about endoscopic evaluation of her symptoms Objective - Constitutional Vitals: Temp Pulse Resp BP Pulse Ox 98.7 F 62 18 147/53 92 10/07/21 07:26 10/07/21 07:26 10/07/21 07:26 10/07/21 07:26 10/07/21 07:28 General appearance: no acute distress - Respiratory Respiratory effort: normal - Cardiovascular Rhythm: regular Heart Sounds: Present: systolic murmur - Gastrointestinal General gastrointestinal: Present: soft, non-tender - Integumentary Integumentary: Present: dry - Neurologic Neurological: alert and oriented x3 - Psychiatric Psychiatric: appropriate mood/affect - Labs CBC & Chem 7: 10/06/21 04:35 10/06/21 04:35 Labs: Laboratory Results - last 24 hr 10/06/21 10/06/21 10/06/21 04:35 12:00 16:34 POC Glucose 209 H 328 H Hemoglobin A1c Troponin T 0.214 H* D 10/06/21 10/07/21 10/07/21 19:57 07:24 Unknown POC Glucose 294 H 78 Hemoglobin A1c 6.0 Troponin T
[2021-10-07 10:02] LABS: Basophils % (Auto) 0.3 % (0.0-1.8); Eosinophils # (Auto) 0.3 K/mm3 (0.0-0.4); Eosinophils % (Auto) 3.4 % (0.0-4.3); Hemoglobin 8.1 gm/dl (10.1-14.3); Lymphocytes # (Auto) 1.1 K/mm3 (1.2-5.4); Lymphocytes % (Auto) 13.4 % (13.4-35.0); Mean Corpuscular HGB Conc 31 % (30-34); Mean Corpuscular Volume 82 fl (79-97); Monocytes # (Auto) 0.7 K/mm3 (0.0-0.8); Monocytes % (Auto) 7.7 % (0.0-7.3); Platelet Count 329 K/mm3 (140-440); Red Blood Count 3.16 M/mm3 (3.65-5.03)
[2021-10-07] MEDS: metFORMIN 500 MG TAB PO SCH ×2 (10:08→16:03)
[2021-10-07] MEDS: INSULIN NPH/REGULAR 70/30 INJ SUB-Q SCH (10:08)
[2021-10-07] MEDS: POTASSIUM CHLORIDE ER 10 MEQ TAB PO SCH (10:09)
[2021-10-07] MEDS ORDERED: SODIUM CHLORIDE 0.9% 1000 ML 1,000 ML IV ONE (10:30)
[2021-10-07 10:50] LABS: BUN/Creatinine Ratio 27; Blood Urea Nitrogen 24 mg/dL (7-17); Calcium 9.3 mg/dL (8.4-10.2); Hemolysis Index 2
[2021-10-07] MEDS: CITALOPRAM 20 MG TAB PO SCH (10:52)
[2021-10-07] MEDS: PANTOPRAZOLE 40 MG TAB PO SCH ×2 (10:52→21:55)
[2021-10-07] MEDS: glipiZIDE 10 MG TAB PO SCH (10:52)
[2021-10-07] MEDS: levETIRAcetam 500 MG TAB PO SCH ×2 (10:52→21:55)
[2021-10-07] MEDS: GABAPENTIN 300 MG CAP PO SCH ×2 (10:52→21:55)
[2021-10-07] MEDS: PROPRANOLOL 10 MG TAB PO SCH ×3 (10:52→21:58)
--- NOTE | 2021-10-07 12:07 | Ultrasound Report ---
Renal ultrasound INDICATION: Urinary retention FINDINGS: The kidneys measure about 11 cm in length. No significant hydronephrosis is appreciated wit hin either kidney. There is a small amount of fluid adjacent to the right kidney. Urinary bladder is collapsed by Sanchez catheter IMPRESSION: No hydronephrosis. Small amount of free fluid adjacent to the right kidney, nonspecific b ut Signer Name: Chris Sanchez MD Signed: 10/07/2021 12:03 PM Workstation Name: [email or web address]
--- NOTE | 2021-10-07 16:38 | Progress Note ---
Assessment and Plan For EGD/colonoscopy tomorrow. Her elevated Tn is suggestive of type II NSTEMI. However, she has no ischemic symptoms. Eventually, pharmacologic stress MPI will be performed. - Patient Problems (1) Severe anemia Current Visit: Yes Status: Acute (2) Acute heart failure with preserved ejection fraction (HFpEF) Current Visit: Yes Status: Acute (3) Elevated troponin Current Visit: Yes Status: Acute (4) CAD (coronary artery disease) Current Visit: Yes Status: Chronic Qualifiers: Coronary Disease-Associated Artery/Lesion type: [place] artery (5) Hx of CABG Current Visit: Yes Status: Chronic (6) H/O peptic ulcer Current Visit: Yes Status: Chronic (7) Hypertension Current Visit: Yes Status: Chronic Qualifiers: Hypertension type: primary hypertension Qualified Code(s): I10 - Essential (primary) hypertension (8) Stenosis of left internal carotid artery Current Visit: Yes Status: Chronic (9) COPD (chronic obstructive pulmonary disease) Current Visit: Yes Status: Chronic (10) Diabetes mellitus Current Visit: Yes Status: Chronic Subjective Date of service: 10/07/21 Principal diagnosis: Anemia, Acute HF, Elevated Tn Interval history: No complaints. Objective Vital Signs Last Vital Signs Temp 96.5 F L 10/07/21 14:57 Pulse 70 10/07/21 14:54 Resp 16 10/07/21 14:53 BP 118/48 10/07/21 14:54 Pulse Ox 94 10/07/21 14:53 - Physical Examination General: No Apparent Distress HEENT: Positive: EOMI, Normocephaly, Mucus Membranes Moist Neck: Positive: neck supple, trachea midline Cardiac: Positive: Reg Rate and Rhythm, S1/S2 Neuro: Positive: Grossly Intact Abdomen: Positive: Soft, Active Bowel Sounds. Negative: Tender Skin: Negative: Rash Musculoskeletal: Normal Range of Motion Extremities: Absent: edema - Labs and Meds CBC 10/07/21 Range/Units 08:57 WBC 8.5 (4.5-11.0) K/mm3 RBC 3.16 L (3.65-5.03) M/mm3 Hgb 8.1 L (10.1-14.3) gm/dl Hct 26.0 L (30.3-42.9) % Plt Count 329 (140-440) K/mm3 Lymph # (Auto) 1.1 L (1.2-5.4) K/mm3 [place] # (Auto) 0.7 (0.0-0.8) K/mm3 Eos # (Auto) 0.3 (0.0-0.4) K/mm3 Baso # (Auto) 0.0 (0.0-0.1) K/mm3 Comprehensive Metabolic Panel 10/07/21 Range/Units 08:57 Sodium 134 L (137-145) mmol/L Potassium 5.1 H (3.6-5.0) mmol/L Chloride 98.3 (98-107) mmol/L Carbon Dioxide 21 L (22-30) mmol/L BUN 24 H (7-17) mg/dL Creatinine 0.9 (0.6-1.2) mg/dL Glucose 63 L (65-100) mg/dL Calcium 9.3 (8.4-10.2) mg/dL - Telemetry EKG Rhythm: Sinus Rhythm Myocardial infarction: anterior MN (old age or i
[2021-10-07] MEDS ORDERED: POLYETHYLENE GLYCOL/ELECT SOLN 4000 ML PO SCH (17:00)
[2021-10-07] MEDS: QUEtiapine 25 MG TAB PO SCH (21:55)
[2021-10-08] MEDS: IPRATROPIUM/ALBUTEROL SULFATE 3 ML AMPUL.NEB IH SCH ×4 (02:11→20:59)
[2021-10-08 06:30] LABS: Basophils % (Auto) 0.8 % (0.0-1.8); Eosinophils # (Auto) 0.3 K/mm3 (0.0-0.4); Eosinophils % (Auto) 8.1 % (0.0-4.3); Lymphocytes # (Auto) 0.5 K/mm3 (1.2-5.4); Lymphocytes % (Auto) 11.7 % (13.4-35.0); Mean Corpuscular HGB Conc 24 % (30-34); Mean Corpuscular Volume 84 fl (79-97); Monocytes # (Auto) 0.4 K/mm3 (0.0-0.8); Monocytes % (Auto) 10.5 % (0.0-7.3); Platelet Count 300 K/mm3 (140-440); Red Blood Count 3.16 M/mm3 (3.65-5.03)
[2021-10-08 06:37] LABS: INR 0.98 (0.87-1.13)
[2021-10-08 06:43] LABS: Hematocrit 26.5 % (30.3-42.9); Hemoglobin 6.3 gm/dl (10.1-14.3)
[2021-10-08 06:49] LABS: Blood Urea Nitrogen 13 mg/dL (7-17); Calcium 8.4 mg/dL (8.4-10.2); Hemolysis Index 5
[2021-10-08 06:53] LABS: BUN/Creatinine Ratio 19
[2021-10-08] MEDS: INSULIN REGULAR, HUMAN 100 UNITS/1 ML SUB-Q SCH ×4 (07:15→21:17)
[2021-10-08] MEDS ORDERED: WATER FOR IRRIG STERILE 1,000 ML BOTTLE ONE (07:24)
[2021-10-08] MEDS ORDERED: WATER FOR IRRIG STERILE 250 ML BOTTLE IR ONE (07:24)
[2021-10-08] MEDS ORDERED: propofoL 200 MG/20 ML VIAL IV ONE ×2 (07:35→07:36)
[2021-10-08] MEDS ORDERED: SODIUM CHLORIDE 0.9% 1000 ML 1,000 ML ONE (07:39)
--- NOTE | 2021-10-08 07:52 | Operative Report ---
Operative Report Operative Report: DOS: 10/08/21 SURGEON: Dev Pleitez MD EGD with biopsy REPORT PREOPERATIVE DIAGNOSIS and POSTOPERATIVE DIAGNOSIS: anemia due to GI blood loss ESTIMATED BLOOD LOSS: minimal DESCRIPTION OF PROCEDURE: A high-resolution EGD scope was passed through the oropharynx, esophagus, stomach, and second portion of duodenum. The scope was carefully withdrawn. Retroflexion was performed in the stomach. At the end of the procedure, the scope was cleaned using normal technique. Vital signs monitored continuously throughout. SEDATION: Provided by Anesthesiology Services. COMPLICATIONS: None. FINDINGS: * Normal second portion of the duodenum * Superficial duodenal ulcerations of the duodenal bulb, no active bleeding no high risk stigmata * Moderate gastritis with nodularity throughout the stomach. Biopsies taken to rule out H. Pylori infection. A total of 5 biopsies were taken, 2 from the antrum, 1 from the incisura, 2 from the body. * Z-line irregular at 40 * Remainder of exam unremarkable RECOMMENDATIONS: Unclear that this is the source of the patient's severe anemia She was not prepped Sufficiently to perform the colonoscopy, as with rectal exam a large amount of thick brown stool came out. Therefore colonoscopy was not attempted When patient wakes up we will discussed with patient reprepping for colonoscopy tomorrow clear liquid diet in the meantime.
--- NOTE | 2021-10-08 08:41 | Anesthesia Consultation ---
Anesthesia Consult and Med Hx Date of service: 10/08/21 - Airway Anesthetic Teeth Evaluation: Poor ROM Head & Neck: Adequate Mental/Hyoid Distance: Adequate Mallampati Class: Class I Intubation Access Assessment: Probably Good - Pulmonary Exam CTA: No (scattered rhonchi; clears w/ cough; productive light yellow, thick sputom) - Cardiac Exam Cardiac Exam: RRR Anesthetic Concerns: systolic murmur - Pre-Operative Health Status ASA Pre-Surgery Classification: ASA3 Proposed Anesthetic Plan: MAC - Pre-Anesthesia Comment Pre-Anesthesia Comments: Pt arrived on NC 2LPM, SpO2 85-91%, productive cough; SpO2 improved to 97-100% on FM 40%; pt reports bilateral hip surgery and states that the left hip is currently broken but she can move and lie on the left side; brusing noted in the bend of the patient's left ac. - Pulmonary Hx Smoking: Yes (1/2 ppd currently; pt has smoked about 50 years) SOB: Yes ([place]) COPD: Yes Home Oxygen Therapy: No Hx Pneumonia: No Hx Sleep Apnea: No - Cardiovascular System Hx Hypertension: Yes Hx Coronary Artery Disease: Yes (s/p CABG, no TN prior to surgery. HX CHF; EF 35-40%) Hx Heart Attack/AMI: No (pt denies) Hx Angina: No Hx Percutaneous Transluminal Coronary Angioplasty (PTCA): No Hx Cardia Arrhythmia: No Hx Pacemaker: No Hx Internal Defibrillator: No Hx Valvular Heart Disease: Yes (MVP) Hx Heart Murmur: Yes (long history) Hx Peripheral Vascular Disease: No - Central Nervous System Hx Neuromuscular Disorder: No Hx Seizures: No CVA: Yes (2011) Hx Back Pain: Yes Hx Psychiatric Problems: No - Gastrointestinal Hx Ulcer: Yes (history of ulcer noted on egd) Hx Gastroesophageal Reflux Disease: Yes - Endocrine Hx Renal Disease: No Hx End Stage Renal Disease: No Hx Cirrhosis: No Hx Liver Disease: No Hx Insulin Dependent Diabetes: No Hx Non-Insulin Dependent Diabetes: Yes Hx Thyroid Disease: No Hx Hypothyroidism: No Hx Hyperthyroidism: No - Hematic Hx Anemia: No Hx Sickle Cell Disease: No - Other Systems Hx Alcohol Use: No Hx Substance Use: No Hx Cancer: No Hx Obesity: No
--- NOTE | 2021-10-08 08:50 | Anesthesia Day of Surgery ---
Anesthesia Day of Surgery - Day of Surgery Patient Examined: Yes Patient H&P Reviewed: Yes Patient is NPO: Yes Beta Blockers: Yes Cardiac Clearance: Yes (ECHO 10/05/2021) Pulmonary Clearance: No Jefferson's Test: N/A
[2021-10-08] MEDS ORDERED: SODIUM CHLORIDE 0.9% 500 ML 500 ML IV NR (10:09)
[2021-10-08] MEDS: PROPRANOLOL 10 MG TAB PO SCH ×3 (10:26→20:25)
[2021-10-08] MEDS: PANTOPRAZOLE 40 MG TAB PO SCH ×2 (10:27→21:18)
[2021-10-08] MEDS: GABAPENTIN 300 MG CAP PO SCH ×2 (10:27→21:17)
[2021-10-08] MEDS: CITALOPRAM 20 MG TAB PO SCH (10:27)
[2021-10-08] MEDS: levETIRAcetam 500 MG TAB PO SCH ×2 (10:27→21:17)
[2021-10-08] MEDS: metFORMIN 500 MG TAB PO SCH ×2 (10:29→17:18)
[2021-10-08] MEDS: BUDESONIDE 0.5 MG/2 ML NEBU IH SCH ×2 (10:47→20:59)
[2021-10-08] MEDS: ARFORMOTEROL 15 MCG/2 ML NEBU IH SCH ×2 (10:48→20:59)
--- NOTE | 2021-10-08 11:23 | Progress Note ---
Assessment and Plan Patient is a 71-year-old female with a reported past medical history of coronary artery disease s/p CABG 2014, hypertension, COPD, peripheral vascular disease s/p left lower extremity AKA, GI ulcers, anemia, and current smoker who reported to the ED with a complaint of shortness of breath x2 to 3 days. Anemia-GI follow Carotid stenosis-vascular following NSTEMI suspect type II COPD-pulmonology following CAD s/p CABG 2014 Hypertension Peripheral vascular disease s/p AKA GI ulcers Tobacco abuse Echo 10/05/2021-EF 35 to 40%. Regional wall motion abnormalities. Right ventricle is normal in size with normal ventricle ventricular systolic function. Severe mitral regurgitation. Mild tricuspid regurgitation Echo 07/29/2018-EF 55 to 60%. Right ventricular systolic function is normal. No significant stenotic or regurgitant valvular abnormalities. No pericardial effusion Echo 10/10/2014-EF 35 to 40%. There is apical inferior wall severe hypokinesis. Apica moderate hypokinesis. Right ventricle is normal in size and function. Mild to moderate mitral regurgitation. Cardiac cath 10/13/2014-severe multivessel coronary artery disease including heavily calcified left main and proximal LAD lesions Plan: Patient for EGD/colonoscopy today Patient remains chest pain-free Troponins noted to be elevated suspect troponin elevation due to lactic acidosis and severe anemia Will hold aspirin at this time due to patient low hemoglobin requiring PRBC transfusion Continue statin therapy Patient currently on propanolol Close monitoring of H&H Patient will eventually require ischemic eval however will plan to do this as an outpatient Patient conjunction with Dr. Domínguez who agrees with this plan of care - Patient Problems (1) Anemia Current Visit: Yes Status: Acute Qualifiers: Anemia type: unspecified type Qualified Code(s): D64.9 - Anemia, unspecified (2) COPD with exacerbation Current Visit: Yes Status: Acute (3) Dyspnea Current Visit: Yes Status: Acute Qualifiers: Dyspnea type: unspecified Qualified Code(s): R06.00 - Dyspnea, unspecified (4) Elevated troponin Current Visit: Yes Status: Acute (5) Lactic acidosis Current Visit: Yes Status: Acute (6) Pulmonary edema Current Visit: Yes Status: Acute (7) Acidosis Current Visit: No Status: Acute Subjective Date of service: 10/08/21 Principal diagnosis: Anemia, Acute HF, Elevated Tn Interval history: Patient resting in bed in no acute distress following EGD/colonoscopy Sinus 60s to 70s on monitor with no events Objective Vital Signs Temp Pulse Pulse Pulse Pulse Resp Resp 10/08/21 10:48 86 84 16 10/08/21 10:26 92 H 10/08/21 09:06 74 19 10/08/21 09:01 97.9 F 74 18 10/08/21 07:30 97.9 F 74 22 10/08/21 05:08 97.2 F L 81 18 10/08/21 00:17 97.9 F 70 16 10/07/21 22:00 20 10/07/21 21:58 73 10/07/21 20:42 10/07/21 20:41 87 10/07/21 19:18 97.6 F 58 L 16 10/07/21 15:00 67 10/07/21 14:57 96.5 F L 10/07/21 14:54 70 10/07/21 14:53 66 16 10/07/21 13:15 67 16 10/07/21 11:25 98.4 F 61 18 Resp BP BP Pulse Ox 10/08/21 10:48 16 10/08/21 10:26 134/42 10/08/21 09:06 98 10/08/21 09:01 134/42 98 10/08/21 07:30 129/41 94 10/08/21 05:08 147/59 94 10/08/21 00:17 158/55 93 10/07/21 22:00 96 10/07/21 21:58 137/50 10/07/21 20:42 95 10/07/21 20:41 18 10/07/21 19:18 137/50 90 10/07/21 15:00 10/07/21 14:57 10/07/21 14:54 118/48 10/07/21 14:53 118/48 94 10/07/21 13:15 96 10/07/21 11:25 113/41 95 - Physical Examination General: No Apparent Distress HEENT: Positive: EOMI, Normocephaly, Mucus Membranes Moist Neck: Positive: neck supple, trachea midline Cardiac: Positive: Reg Rate and Rhythm Lungs: Positive: Normal Breath Sounds Neuro: Positive: Grossly Intact Abdomen: Positive: Soft, Active Bowel Sounds. Negative: Tender Skin: Negative: Rash Musculoskeletal: Normal Range of Motion Extremities: Absent: edema - Labs and Meds Coagulation 10/08/21 Range/Units 05:31 PT 14.1 (12.2-14.9) Sec. INR 0.98 (0.87-1.13) CBC 10/08/21 Range/Units 05:31 WBC 3.9 L (4.5-11.0) K/mm3 RBC 3.16 L (3.65-5.03) M/mm3 Hgb 6.3 L (10.1-14.3) gm/dl Hct 26.5 L (30.3-42.9) % Plt Count 300 (140-440) K/mm3 Lymph # (Auto) 0.5 L (1.2-5.4) K/mm3 [place] # (Auto) 0.4 (0.0-0.8) K/mm3 Eos # (Auto) 0.3 (0.0-0.4) K/mm3 Baso # (Auto) 0.0 (0.0-0.1) K/mm3 Comprehensive Metabolic Panel 10/07/21 10/08/21 Range/Units 08:57 05:31 Sodium 134 L 134 L (137-145) mmol/L Potassium 5.1 H 4.3 (3.6-5.0) mmol/L Chloride 98.3 100.4 (98-107) mmol/L Carbon Dioxide 21 L 24 (22-30) mmol/L BUN 24 H 13 (7-17) mg/dL Creatinine 0.9 0.7 (0.6-1.2) mg/dL Glucose 63 L 150 H (65-100) mg/dL Calcium 9.3 8.4 (8.4-10.2) mg/dL - Imaging and Cardiology Echo: report reviewed Cardiac cath: report reviewed - Telemetry EKG Rhythm: Sinus Rhythm - EKG Sinus rhythms and dysrhythmias: sinus rhythm Myocardial infarction: anterior [place] (old age or i
[2021-10-08] MEDS: glipiZIDE 10 MG TAB PO SCH (11:57)
--- NOTE | 2021-10-08 13:32 | Progress Note ---
Assessment and Plan Assessment and plan: #Significant normocytic anemiaimproving Hemoglobin 5.3--> 8.0-->6.3 Transfusing 2 additional units of packed RBCs. Continue to trend H&H. Patient denies hemoptysis, hematemesis, melena, or hematochezia. Continue p.o. PPI twice daily. Gastroenterology consulted; appreciate recs. Upper endoscopy (10/08/2021) revealing superficial duodenal ulcerations of the duodenal bulb without any active bleeding or high risk stigmata. Moderate gastritis with nodularity within the stomach. Biopsies were taken to rule out H. pylori (total of 5 biopsies). Pending colonoscopy on 10/09/2021. Continue clear liquid diet + MiraLAX administration x4. Transfuse if hemoglobin <7 or patient becomes symptomatic. #Urinary obstruction Continue Sanchez placement. Ordered bilateral renal ultrasound to assess for possible obstruction. #Pulmonary edema Status post IV Lasix 40 mg x 1. Pending TTE read to evaluate cardiac function. Continue to monitor. #Presumed COPD exacerbationruled out #Acute hypoxic respiratory failure Low clinical suspicion for COPD exacerbation as the patient had severe anemia and could have resulted in shortness of breath and the need for supplemental oxygen. Continue DuoNebs every 4 hours and albuterol nebs every 4 hours as needed. Di scontinue IV methylprednisolone 40 mg every 12 hours. Discontinue Levaquin 750 mg daily Currently on 2 L nasal cannula. Continue to wean as tolerated. #Elevated troponin Likely secondary to demand ischemia in the setting of significant anemia. Pending TTE to evaluate cardiac function. Cardiology consulted; appreciate recs #Left ICA stenosis Carotid Doppler ultrasound revealing >70% stenosis. Vascular surgery recommending CT angiogram of neck. Patient can follow-up with them in outpatient setting for endarterectomy. She will follow-up with vascular in 2-4 weeks. #Non-insulin dependent type II diabetes mellitus - hemoglobin A1c: Unknown - home regimen: Metformin 1000 mg twice daily, glipizide 2.5 mg daily - current regimen: Moderate SSI, metformin 1000 mg twice daily, glipizide 2.5 mg daily, NPH 70/30 10 units twice daily - blood glucose goal 140-180 while inpatient - continue to monitor #Seizure disorder Continue Keppra 500 mg twice daily #History of chronic pain Continue citalopram 20 mg daily, duloxetine 60 mg daily, venlafaxine 100 mg twice daily #Lactic acidosis Lactic acid 2.8. Continue to trend until resolved. #History of acute ischemic CVA Currently holding aspirin in the setting of GI bleed. Continue atorvastatin 40 mg daily. #GERD Continue home pantoprazole 40 mg daily #Insomnia Starting Seroquel 12.5 mg nightly. Continue to monitor. #Obesity #Weight loss counseling #Exercise counseling - BMI 30.0 - Counseled patient on the importance of weight loss, incorporating exercise, and dietary changes (lean meats, fresh fruits and vegetables, and water intake). Patient expresses understanding. - Time: +15 min #Advanced care planning -Disease education conducted, care plan discussed, diagnoses discussed, prognosis discussed, and patient acknowledges understanding with care plan -Time: +30 min Disposition Plan: Continue medical management Total Time Spent with Patient (Minutes): 45 minutes History Interval history: No acute events overnight. Hospitalist Physical - Constitutional Vitals: Temp Pulse Resp BP Pulse Ox 97.7 F 78 17 147/76 94 10/08/21 12:40 10/08/21 12:40 10/08/21 12:40 10/08/21 12:40 10/08/21 12:40 General appearance: Present: no acute distress, well-nourished - EENT Eyes: Present: PERRL, EOM intact ENT: hearing intact, clear oral mucosa, dentition normal - Neck Neck: Present: supple, normal ROM - Respiratory Respiratory effort: normal Respiratory: bilateral: CTA - Cardiovascular Rhythm: regular Heart Sounds: Present: S1 & S2 - Extremities Extremities: no ischemia, pulses intact, pulses symmetrical, No edema, normal temperature, normal color, abnormal (Left [id number] amputation) Peripheral Pulses: within normal limits - Abdominal General gastrointestinal: soft, non-tender, non-distended, normal bowel sounds - Integumentary Integumentary: Present: clear, warm, dry - Psychiatric Psychiatric: appropriate mood/affect, intact judgment & insight, memory intact, cooperative - Neurologic Neurologic: CNII-XII intact, moves all extremities - Allied Health Allied health notes reviewed: nursing HEART Score - HEART Score Troponin: Troponin T 0.243 ng/mL (0.00-0.029) H* 10/07/21 08:57 Results - Labs CBC & Chem 7: 10/08/21 05:31 10/08/21 05:31 Labs: Laboratory Last Values WBC 3.9 K/mm3 (4.5-11.0) L 10/08/21 05:31 RBC 3.16 M/mm3 (3.65-5.03) L 10/08/21 05:31 Hgb 6.3 gm/dl (10.1-14.3) L 10/08/21 05:31 Hct 26.5 % (30.3-42.9) L 10/08/21 05:31 MCV 84 fl (79-97) 10/08/21 05:31 MCH 20 pg (28-32) L 10/08/21 05:31 MCHC 24 % (30-34) L 10/08/21 05:31 RDW 18.0 % (13.2-15.2) H 10/08/21 05:31 Plt Count 300 K/mm3 (140-440) 10/08/21 05:31 Lymph % (Auto) 11.7 % (13.4-35.0) L 10/08/21 05:31 [place] % (Auto) 10.5 % (0.0-7.3) H 10/08/21 05:31 Eos % (Auto) 8.1 % (0.0-4.3) H 10/08/21 05:31 Baso % (Auto) 0.8 % (0.0-1.8) 10/08/21 05:31 Lymph # (Auto) 0.5 K/mm3 (1.2-5.4) L 10/08/21 05:31 [place] # (Auto) 0.4 K/mm3 (0.0-0.8) 10/08/21 05:31 Eos # (Auto) 0.3 K/mm3 (0.0-0.4) 10/08/21 05:31 Baso # (Auto) 0.0 K/mm3 (0.0-0.1) 10/08/21 05:31 Add Manual Diff Complete 10/06/21 04:35 Total Counted 100 10/06/21 04:35 Seg Neutrophils % 68.9 % (40.0-70.0) 10/08/21 05:31 Seg Neuts % (Manual) 96.0 % (40.0-70.0) H 10/06/21 04:35 Band Neutrophils % 0 % 10/06/21 04:35 Lymphocytes % (Manual) 3.0 % (13.4-35.0) L 10/06/21 04:35 Reactive Lymphs % (Man) 0 % 10/06/21 04:35 Monocytes % (Manual) 1.0 % (0.0-7.3) 10/06/21 04:35 Eosinophils % (Manual) 0 % (0.0-4.3) 10/06/21 04:35 Basophils % (Manual) 0 % (0.0-1.8) 10/06/21 04:35 Metamyelocytes % 0 % 10/06/21 04:35 Myelocytes % 0 % 10/06/21 04:35 Promyelocytes % 0 % 10/06/21 04:35 Blast Cells % 0 % 10/06/21 04:35 Nucleated RBC % Not Reportable 10/06/21 04:35 Seg Neutrophils # 2.7 K/mm3 (1.8-7.7) 10/08/21 05:31 Seg Neutrophils # Man 8.2 K/mm3 (1.8-7.7) H 10/06/21 04:35 Band Neutrophils # 0.0 K/mm3 10/06/21 04:35 Lymphocytes # (Manual) 0.3 K/mm3 (1.2-5.4) L 10/06/21 04:35 Abs React Lymphs (Man) 0.0 K/mm3 10/06/21 04:35 Monocytes # (Manual) 0.1 K/mm3 (0.0-0.8) 10/06/21 04:35 Eosinophils # (Manual) 0.0 K/mm3 (0.0-0.4) 10/06/21 04:35 Basophils # (Manual) 0.0 K/mm3 (0.0-0.1) 10/06/21 04:35 Metamyelocytes # 0.0 K/mm3 10/06/21 04:35 Myelocytes # 0.0 K/mm3 10/06/21 04:35 Promyelocytes # 0.0 K/mm3 10/06/21 04:35 Blast Cells # 0.0 K/mm3 10/06/21 04:35 WBC Morphology Not Reportable 10/06/21 04:35 Hypersegmented Neuts Not Reportable 10/06/21 04:35 Hyposegmented Neuts Not Reportable 10/06/21 04:35 Hypogranular Neuts Not Reportable 10/06/21 04:35 Smudge Cells Not Reportable 10/06/21 04:35 Toxic Granulation Not Reportable 10/06/21 04:35 Toxic Vacuolation Not Reportable 10/06/21 04:35 Dohle Bodies Not Reportable 10/06/21 04:35 Pelger-Huet Anomaly Not Reportable 10/06/21 04:35 Mery Rods Not Reportable 10/06/21 04:35 Platelet Estimate Consistent w auto 10/06/21 04:35 Clumped Platelets Not Reportable 10/06/21 04:35 Plt Clumps, EDTA Not Reportable 10/06/21 04:35 Large Platelets Not Reportable 10/06/21 04:35 Giant Platelets Not Reportable 10/06/21 04:35 Platelet Satelliting Not Reportable 10/06/21 04:35 Plt Morphology Comment Not Reportable 10/06/21 04:35 RBC Morphology Not Reportable 10/06/21 04:35 Dimorphic RBCs Not Reportable 10/06/21 04:35 Polychromasia Not Reportable 10/06/21 04:35 Hypochromasia 1+ 10/06/21 04:35 Poikilocytosis Not Reportable 10/06/21 04:35 Anisocytosis Not Reportable 10/06/21 04:35 Microcytosis Not Reportable 10/06/21 04:35 Macrocytosis Not Reportable 10/06/21 04:35 Spherocytes Not Reportable 10/06/21 04:35 Pappenheimer Bodies Not Reportable 10/06/21 04:35 Sickle Cells Not Reportable 10/06/21 04:35 Target Cells Not Reportable 10/06/21 04:35 Tear Drop Cells Not Reportable 10/06/21 04:35 Ovalocytes Not Reportable 10/06/21 04:35 Helmet Cells Not Reportable 10/06/21 04:35 [place] Bodies Not Reportable 10/06/21 04:35 [place] Rings Not Reportable 10/06/21 04:35 [place] Cells Not Reportable 10/06/21 04:35 Bite Cells Not Reportable 10/06/21 04:35 Crenated Cell Not Reportable 10/06/21 04:35 Elliptocytes Not Reportable 10/06/21 04:35 Acanthocytes (Spur) Not Reportable 10/06/21 04:35 Rouleaux Not Reportable 10/06/21 04:35 Hemoglobin C Crystals Not Reportable 10/06/21 04:35 Schistocytes Not Reportable 10/06/21 04:35 Malaria parasites Not Reportable 10/06/21 04:35 Jonah Bodies Not Reportable 10/06/21 04:35 Hem Pathologist Commnt No 10/06/21 04:35 PT 14.1 Sec. (12.2-14.9) 10/08/21 05:31 INR 0.98 (0.87-1.13) 10/08/21 05:31 APTT 28.2 Sec. (24.2-36.6) 10/04/21 22:33 D-Dimer 1435.30 ng/mlDDU (0-234) H 10/04/21 22:33 Sodium 134 mmol/L (137-145) L 10/08/21 05:31 Potassium 4.3 mmol/L (3.6-5.0) 10/08/21 05:31 Chloride 100.4 mmol/L (98-107) 10/08/21 05:31 Carbon Dioxide 24 mmol/L (22-30) 10/08/21 05:31 Anion Gap 14 mmol/L 10/08/21 05:31 BUN 13 mg/dL (7-17) 10/08/21 05:31 Creatinine 0.7 mg/dL (0.6-1.2) 10/08/21 05:31 Estimated GFR > 60 ml/min 10/08/21 05:31 BUN/Creatinine Ratio 19 % 10/08/21 05:31 Glucose 150 mg/dL (65-100) H 10/08/21 05:31 POC Glucose 130 mg/dL (70-105) H 10/08/21 12:36 Hemoglobin A1c 6.0 % (4-6) 10/07/21 Unknown Lactic Acid 4.30 mmol/L (0.7-2.0) H* 10/07/21 20:55 Calcium 8.4 mg/dL (8.4-10.2) 10/08/21 05:31 Total Bilirubin 0.20 mg/dL (0.1-1.2) 10/04/21 22:33 AST 20 units/L (5-40) 10/04/21 22:33 ALT 7 units/L (7-56) 10/04/21 22:33 Alkaline Phosphatase 97 units/L (35-129) 10/04/21 22:33 Troponin T 0.243 ng/mL (0.00-0.029) H* 10/07/21 08:57 NT-Pro-B Natriuret Pep 22501 pg/mL (0-900) H 10/05/21 14:27 Total Protein 6.1 g/dL (6.3-8.2) L 10/04/21 22:33 Albumin 2.7 g/dL (3.9-5) L 10/04/21 22:33 Albumin/Globulin Ratio 0.8 % 10/04/21 22:33 Triglycerides 145 mg/dL (2-149) 10/04/21 22:33 Cholesterol 124 mg/dL (50-199) 10/04/21 22:33 LDL Cholesterol Direct 56 mg/dL (50-130) 10/04/21 22:33 HDL Cholesterol 42 mg/dL (40-59) 10/04/21 22:33 Cholesterol/HDL Ratio 2.95 % 10/04/21 22:33 Procalcitonin 0.64 ng/mL (<0.15) 10/05/21 14:27 Urine Color Yellow (Yellow) 10/04/21 13:53 Urine Turbidity Clear (Clear) 10/04/21 13:53 Urine pH 6.5 (5.0-7.0) 10/04/21 13:53 Ur Specific [place] 1.010 (1.003-1.030) 10/04/21 13:53 Urine Protein 30 mg/dl mg/dL (Negative) 10/04/21 13:53 Urine Glucose (UA) Negative mg/dL (Negative) 10/04/21 13:53 Urine Ketones Negative mg/dL (Negative) 10/04/21 13:53 Urine Blood Trace (Negative) 10/04/21 13:53 Urine Nitrite Positive (Negative) 10/04/21 13:53 Ur Reducing Substances Not Reportable 10/04/21 13:53 Urine Bilirubin Negative (Negative) 10/04/21 13:53 Urine Ictotest Not Reportable 10/04/21 13:53 Urine Urobilinogen < 2.0 mg/dL (<2.0) 10/04/21 13:53 Ur Leukocyte Esterase Small (Negative) 10/04/21 13:53 Urine WBC (Auto) 55.0 /HPF (0.0-6.0) H 10/04/21 13:53 Urine RBC (Auto) 2.0 /HPF (0.0-6.0) 10/04/21 13:53 U Epithel Cells (Auto) < 1.0 /HPF (0-13.0) 10/04/21 13:53 Urine Bacteria (Auto) 1+ /HPF (Negative) 10/04/21 13:53 Urine Yeast (Budding) Few /HPF 10/04/21 13:53 Coronavirus (PCR) Negative (Negative) 10/05/21 Unknown Blood Type A NEGATIVE 10/05/21 00:45 Antibody Screen Negative 10/05/21 00:45 Crossmatch See Detail 10/05/21 00:45 Microbiology: Microbiology 10/04/21 13:53 Urine,Clean Catch Urine Culture - Final Sanchez/IV: Voiding Method Indwelling Catheter Active Medications - Current Medications Current Medications: Generic Name Dose Route Start Last Admin Trade Name Freq PRN Reason Stop Dose Admin Albuterol 2.5 mg 10/05/21 01:13 Albuterol 2.5 Mg/3 Ml Nebu IH Q3HRT PRN Shortness Of Breath Albuterol/Ipratropium 1 ampul 10/05/21 08:00 10/08/21 10:48 Ipratropium/Albuterol Sulfate 3 Ml Ampul.Neb IH 1 ampul Q6HRT CHRISTOPHER Administration Arformoterol Tartrate 15 mcg 10/05/21 08:00 10/08/21 10:48 Arformoterol 15 Mcg/2 Ml Nebu IH 15 mcg Q12HRT CHRISTOPHER Administration Atorvastatin Calcium 20 mg 10/06/21 22:00 10/07/21 21:55 Atorvastatin 20 Mg Tab PO 20 mg QHS CHRISTOPHER Administration Budesonide 0.5 mg 10/05/21 08:00 10/08/21 10:47 Budesonide 0.5 Mg/2 Ml Nebu IH 0.5 mg Q12HRT CHRISTOPHER Administration Citalopram Hydrobromide 20 mg 10/05/21 10:00 10/08/21 10:27 Citalopram 20 Mg Tab PO 20 mg DAILY CHRISTOPHER Administration Dextrose 50 ml 10/06/21 16:53 Dextrose 50% In Water (25gm) 50 Ml Syringe IV Q30MIN PRN Hypoglycemia Protocol Gabapentin 900 mg 10/05/21 10:00 10/08/21 10:27 Gabapentin 300 Mg Cap PO 900 mg BID CHRISTOPHER Administration Glipizide 10 mg 10/08/21 08:00 10/08/21 11:57 Glipizide 10 Mg Tab PO 10 mg QDDIAB CHRISTOPHER Administration Insulin Human Regular 0 units 10/06/21 22:00 10/08/21 12:38 Insulin Regular, Human 100 Units/1 Ml SUB-Q Not Given ACHS CHRISTOPHER Protocol Levetiracetam 500 mg 10/06/21 22:00 10/08/21 10:27 Levetiracetam 500 Mg Tab PO 500 mg BID CHRISTOPHER Administration Metformin HCl 1,000 mg 10/07/21 17:00 10/08/21 10:29 Metformin 500 Mg Tab PO Not Given BIDDIAB CHRISTOPHER Morphine Sulfate 2 mg 10/05/21 01:13 Morphine 2 Mg/1 Ml Inj IV Q4H PRN Pain, Moderate (4-6) Morphine Sulfate 4 mg 10/05/21 01:13 Morphine 4 Mg/1 Ml Inj IV Q4H PRN Pain , Severe (7-10) Ondansetron HCl 4 mg 10/05/21 01:13 Ondansetron 4 Mg/2 Ml Inj IV Q8H PRN Nausea And Vomiting Pantoprazole Sodium 40 mg 10/05/21 10:00 10/08/21 10:27 Pantoprazole 40 Mg Tab PO 40 mg BID CHRISTOPHER Administration Polyethylene Glycol 17 gm 10/08/21 14:00 Polyethylene Glycol 3350 17 Gm Powder PO 10/09/21 10:01 QID CHRISTOPHER Propranolol HCl 10 mg 10/05/21 08:00 10/08/21 10:26 Propranolol 10 Mg Tab PO 10 mg TID CHRISTOPHER Administration Quetiapine Fumarate 12.5 mg 10/06/21 22:00 10/07/21 21:55 Quetiapine 25 Mg Tab PO 12.5 mg QHS CHRISTOPHER Administration Sodium Chloride 10 ml 10/05/21 10:00 10/08/21 10:28 Sodium Chloride 0.9% 10 Ml Flush Syringe IV 10 ml BID CHRISTOPHER Administration Sodium Chloride 10 ml 07/29/22 01:13 Sodium Chloride 0.9% 10 Ml Flush Syringe IV PRN PRN LINE FLUSH
[2021-10-08] MEDS: POLYETHYLENE GLYCOL 3350 17 GM POWDER PO SCH ×3 (14:26→21:18)
[2021-10-08 18:13] LABS: Hematocrit 26.4 % (30.3-42.9); Hemoglobin 8.3 gm/dl (10.1-14.3)
[2021-10-08] MEDS: QUEtiapine 25 MG TAB PO SCH (21:18)
[2021-10-09 06:39] LABS: Hematocrit 25.2 % (30.3-42.9); Hemoglobin 7.7 gm/dl (10.1-14.3)
[2021-10-09] MEDS: metFORMIN 500 MG TAB PO SCH ×2 (08:09→16:51)
[2021-10-09] MEDS: glipiZIDE 10 MG TAB PO SCH (08:09)
[2021-10-09] MEDS: PROPRANOLOL 10 MG TAB PO SCH ×2 (08:09→15:03)
[2021-10-09] MEDS ORDERED: FUROSEMIDE 40 MG/4 ML INJ IV SCH (08:30)
[2021-10-09] MEDS: INSULIN REGULAR, HUMAN 100 UNITS/1 ML SUB-Q SCH ×3 (08:33→16:53)
[2021-10-09] MEDS: IPRATROPIUM/ALBUTEROL SULFATE 3 ML AMPUL.NEB IH SCH ×2 (08:42→15:40)
[2021-10-09] MEDS: ARFORMOTEROL 15 MCG/2 ML NEBU IH SCH (08:53)
[2021-10-09] MEDS: BUDESONIDE 0.5 MG/2 ML NEBU IH SCH (08:53)
[2021-10-09] MEDS: levETIRAcetam 500 MG TAB PO SCH (09:14)
[2021-10-09] MEDS: CITALOPRAM 20 MG TAB PO SCH (09:14)
[2021-10-09] MEDS: POLYETHYLENE GLYCOL 3350 17 GM POWDER PO SCH (09:14)
[2021-10-09] MEDS: PANTOPRAZOLE 40 MG TAB PO SCH (09:14)
[2021-10-09] MEDS: GABAPENTIN 300 MG CAP PO SCH (09:14)
[2021-10-09] MEDS ORDERED: SODIUM CHLORIDE 0.9% 1000 ML 1,000 ML ONE (10:19)
--- NOTE | 2021-10-09 10:34 | Progress Note ---
Assessment and Plan Patient is a 71-year-old female with a reported past medical history of coronary artery disease s/p CABG 2014, hypertension, COPD, peripheral vascular disease s/p left lower extremity AKA, GI ulcers, anemia, and current smoker who reported to the ED with a complaint of shortness of breath x2 to 3 days. Anemia-GI follow Carotid stenosis-vascular following NSTEMI suspect type II COPD-pulmonology following CAD s/p CABG 2014 Hypertension Peripheral vascular disease s/p AKA GI ulcers Tobacco abuse Echo 10/05/2021-EF 35 to 40%. Regional wall motion abnormalities. Right ventricle is normal in size with normal ventricle ventricular systolic function. Severe mitral regurgitation. Mild tricuspid regurgitation Echo 07/29/2018-EF 55 to 60%. Right ventricular systolic function is normal. No significant stenotic or regurgitant valvular abnormalities. No pericardial effusion Echo 10/10/2014-EF 35 to 40%. There is apical inferior wall severe hypokinesis. Apica moderate hypokinesis. Right ventricle is normal in size and function. Mild to moderate mitral regurgitation. Cardiac cath 10/13/2014-severe multivessel coronary artery disease including heavily calcified left main and proximal LAD lesions Plan: Patient for colonoscopy today Patient remains chest pain-free Troponins noted to be elevated suspect troponin elevation due to lactic acidosis and severe anemia Will hold aspirin at this time due to patient low hemoglobin requiring PRBC transfusion Continue statin therapy Patient currently on propanolol Close monitoring of H&H Will plan for outpatient ischemic eval Patient has a follow up appoinment with Dr Domínguez, [facility] heart specialists, on 11/06/2021 at 2pm in our [place] location. Patient conjunction with Dr. Domínguez who agrees with this plan of care - Patient Problems (1) Anemia Current Visit: Yes Status: Acute Qualifiers: Anemia type: unspecified type Qualified Code(s): D64.9 - Anemia, unspecified (2) COPD with exacerbation Current Visit: Yes Status: Acute (3) Dyspnea Current Visit: Yes Status: Acute Qualifiers: Dyspnea type: unspecified Qualified Code(s): R06.00 - Dyspnea, unspecified (4) Elevated troponin Current Visit: Yes Status: Acute (5) Lactic acidosis Current Visit: Yes Status: Acute (6) Pulmonary edema Current Visit: Yes Status: Acute (7) Acidosis Current Visit: No Status: Acute Subjective Date of service: 10/09/21 Principal diagnosis: Anemia, Acute HF, Elevated Tn Interval history: Patient resting in bed in no acute distress. Patient waiting for colonoscopy Sinus 60s to 70s on monitor with no events Objective Vital Signs Temp Pulse Pulse Pulse Pulse Resp Resp 10/09/21 09:49 98.2 F 10/09/21 09:31 78 17 10/09/21 09:28 98.0 F 79 18 10/09/21 09:16 15 10/09/21 08:57 10/09/21 08:42 92 H 10/09/21 03:38 97.5 F L 73 18 10/09/21 00:35 10/09/21 00:24 98.3 F 75 18 10/08/21 22:42 77 10/08/21 21:33 10/08/21 21:21 79 18 10/08/21 20:59 85 10/08/21 20:25 79 10/08/21 16:56 97.7 F 66 18 10/08/21 15:00 70 10/08/21 14:25 82 10/08/21 14:07 83 80 16 10/08/21 12:40 97.7 F 78 17 10/08/21 10:48 86 84 16 Resp BP BP Pulse Ox 10/09/21 09:49 10/09/21 09:31 159/45 98 10/09/21 09:28 159/45 93 10/09/21 09:16 96 10/09/21 08:57 97 10/09/21 08:42 18 10/09/21 03:38 150/53 93 10/09/21 00:35 95 10/09/21 00:24 142/54 93 10/08/21 22:42 10/08/21 21:33 95 10/08/21 21:21 96 10/08/21 20:59 14 10/08/21 20:25 150/54 10/08/21 16:56 153/63 96 10/08/21 15:00 10/08/21 14:25 147/76 10/08/21 14:07 18 10/08/21 12:40 147/76 94 10/08/21 10:48 16 94 - Physical Examination General: No Apparent Distress HEENT: Positive: EOMI, Normocephaly, Mucus Membranes Moist Neck: Positive: neck supple, trachea midline Cardiac: Positive: Reg Rate and Rhythm Lungs: Positive: Normal Breath Sounds Neuro: Positive: Grossly Intact Abdomen: Positive: Soft, Active Bowel Sounds. Negative: Tender Skin: Negative: Rash Musculoskeletal: Normal Range of Motion Extremities: Absent: edema - Labs and Meds CBC 10/08/21 10/09/21 Range/Units 17:48 05:52 Hgb 8.3 L 7.7 L (10.1-14.3) gm/dl Hct 26.4 L 25.2 L (30.3-42.9) % - Imaging and Cardiology Echo: report reviewed Cardiac cath: report reviewed - Telemetry EKG Rhythm: Sinus Rhythm - EKG Sinus rhythms and dysrhythmias: sinus rhythm Myocardial infarction: anterior SD (old age or i
[2021-10-09] MEDS ORDERED: propofoL 200 MG/20 ML VIAL IV ONE (10:53)
--- NOTE | 2021-10-09 11:22 | Operative Report ---
Operative Report Operative Report: Date of procedure: 10/09/2021 Preprocedure diagnosis: GI bleeding of uncertain source. Post procedure diagnosis: Normal study Procedure: Colonoscopy to the cecum Endoscopist: Dr. Li Anesthesia: Monitored anesthesia care per anesthesia department Estimated blood loss: 0 Medications: Monitored anesthesia care. See separate report by anesthesia for details. After careful discussion of the nature and purpose of the procedure as well as details of the technique risks benefits and alternatives the patient gave consent. Please see recent history and physical from the office. The patient was placed in the left lateral decubitus position and medicated per anesthesia. A rectal exam was performed sphincter tone was normal there were no masses palpable. The Q1 Labsn 570 scope was passed transanally and advanced under continuous direct vision without difficulty to the cecum. The colon was well prepared. The cecum was normal. The ascending colon was normal and on forward and retroflexed views. The transverse colon, descending colon, and sigmoid colon were normal. The rectum was normal on forward and retroflexed views. The procedure was well-tolerated overall and the patient was observed in recovery. Conclusions: Normal colonoscopy to the cecum. Plan: Repeat colonoscopy in 10 years. Pursue other sources of potential GI blood loss with outpatient PillCam or consideration of second look upper endoscopy, if clinically indicated. Signed electronically: Solomon Li M.D.
--- NOTE | 2021-10-09 13:17 | Post Anesthesia Evaluation ---
- Post Anesthesia Evaluation Patient Participated: Yes Airway Patent: Yes Stable Respiratory Function: Yes Nausea/Vomiting: No Temp > 96.8F: Yes Pain Manageable: Yes Adequeate Hydration: Yes Anesthesia Complications: No
--- NOTE | 2021-10-09 13:52 | Discharge Summary ---
Providers - Providers Date of Admission: 10/05/21 01:13 Date of discharge: 10/09/21 Attending physician: AMAIRANI REYES MD 10/05/21 01:13 Consult to Physician [CONS] Routine Comment: Consulting Provider: RAYMOND PAETL Physician Instructions: Reason For Exam: anemia 10/05/21 01:29 Consult to Physician [CONS] Routine Comment: Consulting Provider: APRIL EARL Physician Instructions: Reason For Exam: elevated troponin 10/06/21 09:24 Consult to Physician [CONS] Routine Comment: Consulting Provider: MIRANDA MCMANUS Physician Instructions: Reason For Exam: >70% left ICA stenosis on carotid u/s Primary care physician: KARLA SHERMAN Hospitalization Reason for admission: acute hypoxic respiratory failure Condition: Stable Hospital course: Patient is a 71-year-old female with history of COPD and tobacco abuse who presented with shortness of breath. She was found to have profound anemia and pulmonary edema. She was treated for COPD exacerbation initially. She received 2 units of packed red cells with improvement in symptoms. CTA of the chest was negative for PE, but did show high-grade stenosis of the right common carotid origin. Echocardiogram revealed LVEF of 35 to 40%. GI was consulted for concern of GI blood loss. EGD and colonoscopy were both performed and showed no evidence of acute bleed. Carotid Doppler showed abnormal waveforms in the right ICA and greater than 70% stenosis in the LICA. Vascular surgery was consulted and recommended outpatient follow-up for CEA. Patient had urinary obstruction on presentation which resolved on its own. Patient voided prior to discharge. Once stable, patient was discharged home. Disposition: 30 STILL A PATIENT Final Discharge Diagnosis (Prints w/discharge instructions): Acute on chronic normocytic anemia. Acute hypoxic respiratory failure. Urinary obstruction, resolved. Pulmonary edema. COPD exacerbation ruled out. Elevated troponin left internal carotid artery stenosis. Insulin-dependent type 2 diabetes. Seizure disorder. History of chronic pain. Lactic acidosis. History of acute ischemic CVA. Obesity Time spent for discharge: 30 minutes Core Measure Documentation - Palliative Care Palliative Care/ Comfort Measures: Not Applicable - Core Measures Any of the following diagnoses?: history only Exam - Physical Exam Narrative exam: GENERAL: Thin woman. In no acute distress. HEENT: Normocephalic. Atraumatic. NECK: Supple. CHEST/LUNGS: CTAB on room air HEART/CARDIOVASCULAR: RRR. No murmur, rubs or gallops appreciated. ABDOMEN: +BS. NT/ND. NEURO: No focal motor deficit. Follows all commands. MUSCULOSKELETAL: No joint effusion EXTREMITIES: No cyanosis, clubbing or edema. LLE BKA. PSYCH: Cooperative. - Constitutional Vitals: Temp Pulse Resp BP Pulse Ox 97.5 F L 80 16 152/79 97 10/09/21 12:41 10/09/21 12:41 10/09/21 12:41 10/09/21 12:41 10/09/21 12:41 Plan Care Plan Goals: Please follow-up with [facility] on 11/06/2021 at 2pm at the [place] location. [address], [address], [place], [place] No evidence of bleeding was found on EGD and colonoscopy. You can repeat colonoscopy in 10 years. If you experience any bleeding, please schedule appoint with outpatient assistant infant teacher. Please take all medications as they are prescribed to you. Follow-up with your primary care provider within 1 week. Follow up with: PARKER GATICA MD [Staff Physician] - 3-5 Days Prescriptions: Rosuvastatin (Nf) [Crestor] 10 mg PO QHS 30 Days #60 tab Citalopram [Celexa] 20 mg PO DAILY 30 Days #30 tablet Gabapentin 900 mg PO BID 30 Days #180 capsule propranoloL [Inderal] 10 mg PO TID 30 Days #90 tab levETIRAcetam [Keppra TAB] 500 mg PO BID 30 Days #60 tab Furosemide [Lasix] 40 mg PO DAILY 30 Days #30 tab Metformin HCl [metFORMIN] 1,000 mg PO BID 30 Days #60 tab
[2021-10-09 16:19] VITALS: BP 151/59
--- NOTE | 2021-10-10 12:50 | Post Anesthesia Evaluation ---
- Post Anesthesia Evaluation Patient Participated: Yes Airway Patent: Yes Stable Respiratory Function: Yes Nausea/Vomiting: No Temp > 96.8F: Yes Pain Manageable: Yes Adequeate Hydration: Yes Anesthesia Complications: No Block Receding Appropriately: Not Applicable Patient on Ventilator: No (Patient discharged home. )
== END 2021-10-09 18:30 | disposition home or self-care (01) | DRG 280 ==
LOC: ED 20:51 → 4A 10-05 01:13
PROVIDERS: ADMIT Hospitalist; ATTEND Student in an Organized Health Care Education/Training Program
PROC: 30233N1 Transfusion of Nonautologous Red Blood Cells into Peripheral Vein, Percutaneous Approach (ICD-10-PCS; 2021-10-05)
PROC: 0DB68ZX Excision of Stomach, Via Natural or Artificial Opening Endoscopic, Diagnostic (ICD-10-PCS; principal; 2021-10-08)
PROC: 0DJD8ZZ Inspection of Lower Intestinal Tract, Via Natural or Artificial Opening Endoscopic (ICD-10-PCS; 2021-10-09)
DX: I11.0 Hypertensive heart disease with heart failure (principal); I21.A1 Myocardial infarction type 2; I50.21 Acute systolic (congestive) heart failure; J96.01 Acute respiratory failure with hypoxia; E87.2 Acidosis; D64.9 Anemia, unspecified; Z20.822 Contact with and (suspected) exposure to COVID-19; I65.22 Occlusion and stenosis of left carotid artery; G40.909 Epilepsy, unspecified, not intractable, without status epilepticus; F17.210 Nicotine dependence, cigarettes, uncomplicated; K21.9 Gastro-esophageal reflux disease without esophagitis; E11.9 Type 2 diabetes mellitus without complications; E78.5 Hyperlipidemia, unspecified; I25.10 Atherosclerotic heart disease of native coronary artery without angina pectoris; E66.9 Obesity, unspecified; K29.70 Gastritis, unspecified, without bleeding; Z95.1 Presence of aortocoronary bypass graft; Z82.49 Family history of ischemic heart disease and other diseases of the circulatory system; Z88.8 Allergy status to other drugs, medicaments and biological substances; Z88.2 Allergy status to sulfonamides; Z88.5 Allergy status to narcotic agent; Z88.1 Allergy status to other antibiotic agents; Z86.73 Personal history of transient ischemic attack (TIA), and cerebral infarction without residual deficits; Z68.30 Body mass index [BMI] 30.0-30.9, adult; Z79.4 Long term (current) use of insulin
CPT/HCPCS: 36415; 70498; 71045; 71275; 76770; 80048; 80053; 80061; 81001; 82140; 82962; 83036; 83880; 84145; 84484; 85007; 85014; 85018; 85025; 85379; 85610; 85730; 86850; 86900; 86901; 86920; 87086; 88305; 88342; 93005; 93306; 93880; 94640; 94760; 99406; G0378; J7060; Q9967; C8929; J1815; J1940; J1953; J1956; J2704; J2920; J7030; J7040; P9016; U0003

== ENCOUNTER 2021-11-08 17:13 | Inpatient (IN) | payer MEDICARE ==
[2021-11-08] MEDS ORDERED: SODIUM CHLORIDE 0.9% 1000 ML IV SOLN IV ONE (19:28)
[2021-11-08 19:58] LABS: Basophils % (Auto) 0.3 % (0.0-1.8); Eosinophils # (Auto) 0.1 K/mm3 (0.0-0.4); Eosinophils % (Auto) 1.2 % (0.0-4.3); Hematocrit 24.3 % (30.3-42.9); Hemoglobin 7.6 gm/dl (10.1-14.3); Lymphocytes # (Auto) 0.7 K/mm3 (1.2-5.4); Lymphocytes % (Auto) 8.9 % (13.4-35.0); Mean Corpuscular HGB Conc 31 % (30-34); Mean Corpuscular Volume 81 fl (79-97); Monocytes # (Auto) 0.3 K/mm3 (0.0-0.8); Monocytes % (Auto) 3.4 % (0.0-7.3); Platelet Count 334 K/mm3 (140-440); Red Blood Count 3.02 M/mm3 (3.65-5.03)
[2021-11-08 19:59] LABS: Red Cell Distribution Width 21.2 % (13.2-15.2)
[2021-11-08 20:06] LABS: INR 0.94 (0.87-1.13)
[2021-11-08 20:07] LABS: Partial Thromboplastin Time 27.3 Sec. (24.2-36.6)
[2021-11-08 20:18] LABS: Alanine Aminotransferase 15 units/L (7-56); Blood Urea Nitrogen 11 mg/dL (7-17); Calcium 8.2 mg/dL (8.4-10.2); Hemolysis Index 18
[2021-11-08 20:20] LABS: BUN/Creatinine Ratio 22
--- NOTE | 2021-11-08 20:21 | XRay Report ---
CHEST 1 VIEW 11/08/2021 7:12 PM INDICATION / CLINICAL INFORMATION: sob. COMPARISON: 10/04/2021 FINDINGS: SUPPORT DEVICES: None. HEART / MEDIASTINUM: Stable. LUNGS / PLEURA: Bilateral pulmonary opacities are noted primarily in the mid to lower lungs. There ar e bilateral pleural effusions. No pneumothorax. ADDITIONAL FINDINGS: No significant additional findings. IMPRESSION: 1. Bilateral pulmonary opacities and pleural effusions. This is concerning for congestive heart failu re. Signer Name: David Mcfarland MD Signed: 11/08/2021 8:17 PM Workstation Name: [id number]
--- NOTE | 2021-11-08 20:51 | Emergency Department Report ---
ED Shortness of Breath HPI - General Chief Complaint: Dyspnea/Respdistress Stated Complaint: DIFFICULT BREATHING Time Seen by Provider: 11/08/21 18:51 Source: patient, EMS Mode of arrival: Stretcher Limitations: No Limitations - History of Present Illness Initial Comments: 71-year-old female with a past medical history of coronary artery disease s/p CABG 2014, hypertension, COPD (no home O2), peripheral vascular disease s/p left lower extremity AKA, seizures, GI ulcers, anemia, and current smoker who reported to the ED with a complaint of progressively worsening shortness of breath x3 weeks. Patient also states for the last 2 to 3 weeks she has had diarrhea. Planes of mild chest pain. She denies abdominal pain. Initial triage states that patient's room air saturation was 77 to 85% with labored respirations. She received albuterol 5 mg prior to my evaluation. Initial BP 170/74. At time of my bedside evaluation patient was hypotensive with a systolic pressure in the 60s to 70s and satting in the 90s on nonrebreather and reporting improvement in shortness of breath. Instructed nurse to emergently relocate patient to the main side of the ED and initiated code sepsis orders. - Related Data Home Medications Medication Instructions Recorded Confirmed Last Taken DULoxetine [Cymbalta] 30 mg PO BID 10/06/21 10/06/21 Unknown Omeprazole 40 mg PO DAILY 10/06/21 10/06/21 Unknown Primidone [Mysoline] 50 mg PO BID 10/06/21 10/06/21 Unknown glipiZIDE [Glucotrol] 10 mg PO DAILY 10/06/21 10/06/21 Unknown Previous Rx's Medication Instructions Recorded Last Taken Type Citalopram [Celexa] 20 mg PO DAILY 30 Days #30 tablet 10/09/21 Unknown Rx Furosemide [Lasix] 40 mg PO DAILY 30 Days #30 tab 10/09/21 Unknown Rx Gabapentin 900 mg PO BID 30 Days #180 capsule 10/09/21 Unknown Rx Metformin HCl [metFORMIN] 1,000 mg PO BID 30 Days #60 tab 10/09/21 Unknown Rx Rosuvastatin (Nf) [Crestor] 10 mg PO QHS 30 Days #60 tab 10/09/21 Unknown Rx levETIRAcetam [Keppra TAB] 500 mg PO BID 30 Days #60 tab 10/09/21 Unknown Rx propranoloL [Inderal] 10 mg PO TID 30 Days #90 tab 10/09/21 Unknown Rx Allergies Allergy/AdvReac Type Severity Reaction Status Date / Time acetaminophen [From Tylenol] Allergy CAUSES Verified 11/09/21 05:13 ISSUE WITH LIVER Antihistamines - Alkylamine Allergy Shortness Verified 11/09/21 05:13 of Breath codeine Allergy Headache Verified 11/09/21 05:13 Penicillins Allergy Angioedema Verified 11/09/21 05:13 Sulfa (Sulfonamide Allergy Rash Verified 11/09/21 05:13 Antibiotics) ANTIBIOTICS Allergy Severe EXTREME Uncoded 11/09/21 05:13 STOMACH PAIN ED Review of Systems ROS: Stated complaint: DIFFICULT BREATHING Other details as noted in HPI Comment: All other systems reviewed and negative ED Past Medical Hx - Past Medical History Hx Hypertension: Yes Hx Heart Attack/AMI: No (pt denies) Hx Congestive Heart Failure: Yes Hx Diabetes: Yes Hx Deep Vein Thrombosis: No Hx GERD: Yes Hx Liver Disease: No Hx Renal Disease: No Hx Sickle Cell Disease: No Hx Seizures: No Hx COPD: Yes Additional medical history: hyperlipidemia - Surgical History Hx Open Heart Surgery: Yes (2014) Hx Pacemaker: No Hx Internal Defibrillator: No Additional Surgical History: Neck surgery, back surgery, stents placed in legs?, L leg amputation - Social History Smoking Status: Current Every Day Smoker - Medications Home Medications: Home Medications Medication Instructions Recorded Confirmed Last Taken Type DULoxetine [Cymbalta] 30 mg PO BID 10/06/21 10/06/21 Unknown History Omeprazole 40 mg PO DAILY 10/06/21 10/06/21 Unknown History Primidone [Mysoline] 50 mg PO BID 10/06/21 10/06/21 Unknown History glipiZIDE [Glucotrol] 10 mg PO DAILY 10/06/21 10/06/21 Unknown History Citalopram [Celexa] 20 mg PO DAILY 30 Days #30 tablet 10/09/21 Unknown Rx Furosemide [Lasix] 40 mg PO DAILY 30 Days #30 tab 10/09/21 Unknown Rx Gabapentin 900 mg PO BID 30 Days #180 capsule 10/09/21 Unknown Rx Metformin HCl [metFORMIN] 1,000 mg PO BID 30 Days #60 tab 10/09/21 Unknown Rx Rosuvastatin (Nf) [Crestor] 10 mg PO QHS 30 Days #60 tab 10/09/21 Unknown Rx levETIRAcetam [Keppra TAB] 500 mg PO BID 30 Days #60 tab 10/09/21 Unknown Rx propranoloL [Inderal] 10 mg PO TID 30 Days #90 tab 10/09/21 Unknown Rx ED Physical Exam - General Limitations: No Limitations - Other Other exam information: General: No acute distress Head: Atraumatic Eyes: normal appearance ENT: Moist mucous membranes Neck: Normal appearance, no midline tenderness Chest: Bilateral crackles greater on the right side, mild tachypnea with mild accessory muscle use CV: Regular rate and rhythm Abdomen: Soft, normal bowel sounds, nontender, nondistended, no rebound or gua rding Back: Normal inspection Extremity: Left BKA, mild edema to the right lower extremity Neuro: Alert O x 3, no facial asymmetry, speech clear, no gross motor sensory deficit Psych: Appropriate behavior Skin: No rash ED Course Vital Signs 11/08/21 11/08/21 11/08/21 17:17 19:39 19:46 Temperature Pulse Rate 92 H 84 Respiratory 31 H Rate Blood Pressure 78/48 Blood Pressure 178/74 [Left] O2 Sat by Pulse 98 100 95 Oximetry 11/08/21 11/08/21 11/08/21 20:00 20:12 20:15 Temperature Pulse Rate 83 83 82 Respiratory 21 21 24 Rate Blood Pressure 65/37 65/37 51/32 Blood Pressure [Left] O2 Sat by Pulse 93 97 Oximetry 11/08/21 11/08/21 11/08/21 20:30 20:46 20:54 Temperature 98.3 F Pulse Rate 86 77 Respiratory 18 17 Rate Blood Pressure 60/38 60/40 Blood Pressure [Left] O2 Sat by Pulse 99 99 Oximetry 11/08/21 11/08/21 11/08/21 21:00 21:16 21:30 Temperature Pulse Rate 81 87 87 Respiratory 17 23 20 Rate Blood Pressure 64/40 66/42 60/39 Blood Pressure [Left] O2 Sat by Pulse 99 100 100 Oximetry 11/08/21 11/08/21 11/08/21 21:46 22:00 22:16 Temperature Pulse Rate 76 86 103 H Respiratory 18 20 16 Rate Blood Pressure 65/42 60/41 70/46 Blood Pressure [Left] O2 Sat by Pulse 100 99 93 Oximetry 11/08/21 11/08/21 11/08/21 22:30 22:46 23:00 Temperature Pulse Rate 136 H 148 H 123 H Respiratory 19 21 19 Rate Blood Pressure 80/54 72/48 74/51 Blood Pressure [Left] O2 Sat by Pulse 92 91 92 Oximetry 11/08/21 11/08/21 11/08/21 23:05 23:16 23:23 Temperature Pulse Rate 100 H 116 H 105 H Respiratory 20 20 16 Rate Blood Pressure 58/40 70/45 Blood Pressure [Left] O2 Sat by Pulse 98 93 98 Oximetry 11/08/21 11/08/21 11/09/21 23:30 23:46 00:00 Temperature Pulse Rate 113 H 98 H 74 Respiratory 21 20 17 Rate Blood Pressure 68/45 70/46 59/37 Blood Pressure [Left] O2 Sat by Pulse 93 95 97 Oximetry 11/09/21 11/09/21 11/09/21 00:16 00:30 00:48 Temperature Pulse Rate 70 71 71 Respiratory 15 15 17 Rate Blood Pressure 77/48 65/45 Blood Pressure [Left] O2 Sat by Pulse 97 97 98 Oximetry 11/09/21 11/09/21 01:00 01:16 Temperature Pulse Rate 75 74 Respiratory 12 15 Rate Blood Pressure 74/49 77/49 Blood Pressure [Left] O2 Sat by Pulse 97 98 Oximetry - Reevaluation(s) Reevaluation #1: 11/08/21 22:58 Patient's heart rate jumped up to to 150s narrow complex rhythm while on dopamine 14 mics. EKG shows sinus tach rate 147. Patient complained of chest pain during episode. Patient remains hypotensive despite dopamine. Dopamine titrated downward and Levophed will be started instead. Dr. Bruno hospitalist informed HR 118 on Dopamine 6 mcg - Consultations Consultation #1: 11/08/21 23:43 Dr. driver critical care attending paged several times at 22:24 via answering service and cell phone however, no response. Critical care consult has been ordered ED Medical Decision Making - Lab Data Result diagrams: 11/09/21 04:00 11/09/21 04:00 Lab Results 11/08/21 11/08/21 11/08/21 Range/Units 19:42 19:42 19:42 WBC 7.4 (4.5-11.0) K/mm3 RBC 3.02 L (3.65-5.03) M/mm3 Hgb 7.6 L (10.1-14.3) gm/dl Hct 24.3 L (30.3-42.9) % MCV 81 (79-97) fl MCH 25 L (28-32) pg MCHC 31 (30-34) % RDW 21.2 H (13.2-15.2) % Plt Count 334 (140-440) K/mm3 Lymph % (Auto) 8.9 L (13.4-35.0) % Edgar % (Auto) 3.4 (0.0-7.3) % Eos % (Auto) 1.2 (0.0-4.3) % Baso % (Auto) 0.3 (0.0-1.8) % Lymph # (Auto) 0.7 L (1.2-5.4) K/mm3 Edgar # (Auto) 0.3 (0.0-0.8) K/mm3 Eos # (Auto) 0.1 (0.0-0.4) K/mm3 Baso # (Auto) 0.0 (0.0-0.1) K/mm3 Seg Neutrophils % 86.2 H (40.0-70.0) % Seg Neutrophils # 6.4 (1.8-7.7) K/mm3 PT 13.6 (12.2-14.9) Sec. INR 0.94 (0.87-1.13) APTT 27.3 (24.2-36.6) Sec. Sodium 129 L (137-145) mmol/L Potassium 4.5 (3.6-5.0) mmol/L Chloride 94.6 L (98-107) mmol/L Carbon Dioxide 23 (22-30) mmol/L Anion Gap 16 mmol/L BUN 11 (7-17) mg/dL Creatinine 0.5 L (0.6-1.2) mg/dL Estimated GFR > 60 ml/min BUN/Creatinine Ratio 22 % Glucose 152 H (65-100) mg/dL Lactic Acid (0.7-2.0) mmol/L Calcium 8.2 L (8.4-10.2) mg/dL Total Bilirubin 0.20 (0.1-1.2) mg/dL AST 25 (5-40) units/L ALT 15 (7-56) units/L Alkaline Phosphatase 151 H (35-129) units/L Troponin T (0.00-0.029) ng/mL NT-Pro-B Natriuret Pep (0-900) pg/mL Total Protein 5.4 L (6.3-8.2) g/dL Albumin 3.0 L (3.9-5) g/dL Albumin/Globulin Ratio 1.3 % Urine Color (Yellow) Urine Turbidity (Clear) Specific [place] (Man) (1.003-1.030) Ur Protein (Man) (Negative) mg/dL Ur Ketones (Man) (Negative) Ur Nitrite (Man) (Negative) Urine Bilirubin (Man) (Negative) Leukocyte Esterase (Man) (Negative) Urine WBC (Auto) (0.0-6.0) /HPF Urine RBC (Auto) (0.0-6.0) /HPF Urine RBC (Manual) (Negative) Urine Mucus /HPF 11/08/21 11/08/21 11/08/21 Range/Units 19:42 19:42 19:42 WBC (4.5-11.0) K/mm3 RBC (3.65-5.03) M/mm3 Hgb (10.1-14.3) gm/dl Hct (30.3-42.9) % MCV (79-97) fl MCH (28-32) pg MCHC (30-34) % RDW (13.2-15.2) % Plt Count (140-440) K/mm3 Lymph % (Auto) (13.4-35.0) % Edgar % (Auto) (0.0-7.3) % Eos % (Auto) (0.0-4.3) % Baso % (Auto) (0.0-1.8) % Lymph # (Auto) (1.2-5.4) K/mm3 Edgar # (Auto) (0.0-0.8) K/mm3 Eos # (Auto) (0.0-0.4) K/mm3 Baso # (Auto) (0.0-0.1) K/mm3 Seg Neutrophils % (40.0-70.0) % Seg Neutrophils # (1.8-7.7) K/mm3 PT (12.2-14.9) Sec. INR (0.87-1.13) APTT (24.2-36.6) Sec. Sodium (137-145) mmol/L Potassium (3.6-5.0) mmol/L Chloride (98-107) mmol/L Carbon Dioxide (22-30) mmol/L Anion Gap mmol/L BUN (7-17) mg/dL Creatinine (0.6-1.2) mg/dL Estimated GFR ml/min BUN/Creatinine Ratio % Glucose (65-100) mg/dL Lactic Acid 0.70 (0.7-2.0) mmol/L Calcium (8.4-10.2) mg/dL Total Bilirubin (0.1-1.2) mg/dL AST (5-40) units/L ALT (7-56) units/L Alkaline Phosphatase (35-129) units/L Troponin T 0.111 H* (0.00-0.029) ng/mL NT-Pro-B Natriuret Pep 96523 H (0-900) pg/mL Total Protein (6.3-8.2) g/dL Albumin (3.9-5) g/dL Albumin/Globulin Ratio % Urine Color (Yellow) Urine Turbidity (Clear) Specific [place] (Man) (1.003-1.030) Ur Protein (Man) (Negative) mg/dL Ur Ketones (Man) (Negative) Ur Nitrite (Man) (Negative) Urine Bilirubin (Man) (Negative) Leukocyte Esterase (Man) (Negative) Urine WBC (Auto) (0.0-6.0) /HPF Urine RBC (Auto) (0.0-6.0) /HPF Urine RBC (Manual) (Negative) Urine Mucus /HPF 11/08/21 Range/Units 21:39 WBC (4.5-11.0) K/mm3 RBC (3.65-5.03) M/mm3 Hgb (10.1-14.3) gm/dl Hct (30.3-42.9) % MCV (79-97) fl MCH (28-32) pg MCHC (30-34) % RDW (13.2-15.2) % Plt Count (140-440) K/mm3 Lymph % (Auto) (13.4-35.0) % Edgar % (Auto) (0.0-7.3) % Eos % (Auto) (0.0-4.3) % Baso % (Auto) (0.0-1.8) % Lymph # (Auto) (1.2-5.4) K/mm3 Edgar # (Auto) (0.0-0.8) K/mm3 Eos # (Auto) (0.0-0.4) K/mm3 Baso # (Auto) (0.0-0.1) K/mm3 Seg Neutrophils % (40.0-70.0) % Seg Neutrophils # (1.8-7.7) K/mm3 PT (12.2-14.9) Sec. INR (0.87-1.13) APTT (24.2-36.6) Sec. Sodium (137-145) mmol/L Potassium (3.6-5.0) mmol/L Chloride (98-107) mmol/L Carbon Dioxide (22-30) mmol/L Anion Gap mmol/L BUN (7-17) mg/dL Creatinine (0.6-1.2) mg/dL Estimated GFR ml/min BUN/Creatinine Ratio % Glucose (65-100) mg/dL Lactic Acid (0.7-2.0) mmol/L Calcium (8.4-10.2) mg/dL Total Bilirubin (0.1-1.2) mg/dL AST (5-40) units/L ALT (7-56) units/L Alkaline Phosphatase (35-129) units/L Troponin T (0.00-0.029) ng/mL NT-Pro-B Natriuret Pep (0-900) pg/mL Total Protein (6.3-8.2) g/dL Albumin (3.9-5) g/dL Albumin/Globulin Ratio % Urine Color Colorless (Yellow) Urine Turbidity Clear (Clear) Specific [place] (Man) 1.015 (1.003-1.030) Ur Protein (Man) <30 mg dl (Negative) mg/dL Ur Ketones (Man) Negative (Negative) Ur Nitrite (Man) Negative (Negative) Urine Bilirubin (Man) Negative (Negative) Leukocyte Esterase (Man) Small (Negative) Urine WBC (Auto) < 1.0 (0.0-6.0) /HPF Urine RBC (Auto) < 1.0 (0.0-6.0) /HPF Urine RBC (Manual) Negative (Negative) Urine Mucus Few /HPF - EKG Data -: EKG Interpreted by Me EKG shows normal: sinus rhythm, ST-T waves (Lateral T wave inversions and ant eriorly) Rate: normal (81) - EKG Data When compared to previous EKG there are: changes noted (New lateral T wave inversions, old anterior T wave inversions) 11/08/21 22:57 BP EKG Tachycardia stays at 22: 44 shows sinus tach rate [address] elevation. - Radiology Data Radiology results: report reviewed CHEST 1 VIEW 11/08/2021 7:12 PM INDICATION / CLINICAL INFORMATION: sob. COMPARISON: 10/04/2021 FINDINGS: SUPPORT DEVICES: None. HEART / MEDIASTINUM: Stable. LUNGS / PLEURA: Bilateral pulmonary opacities are noted primarily in the mid to lower lungs. There are bilateral pleural effusions. No pneumothorax. ADDITIONAL FINDINGS: No significant additional findings. IMPRESSION: 1. Bilateral pulmonary opacities and pleural effusions. This is concerning for congestive heart failure. - Medical Decision Making 71-year-old female presents to the hospital with shortness of breath. Patient treated with albuterol prior to my evaluation and supplemental oxygen with improvement in respiratory status. Patient noted to have persistent tachypnea and hypotension and therefore please worked up for sepsis. At time of admission patient receiving 30 mill per KG bolus of normal saline, central line has been placed with dopamine ordered, and patient receiving BiPAP support for pulmonary edema findings identified on chest x-ray. Patient continues to deny and does not have any abdominal tenderness on examination. She does endorse 2 weeks of diarrhea which could cause secondary volume depletion. Patient does not have other findings of sepsis such as elevated white count or elevated lactic acid. Patient is noted to have chronic mild troponin elevation with repeat levels pending. Cause of hypotension unclear at this time however, cultures and urine collection are pending. Case discussed with hospitalist for admission. Critical Care Time: Yes Critical care time in (mins) excluding proc time.: 40 Critical care attestation.: If time is entered above; I have spent that time in minutes in the direct care of this critically ill patient, excluding procedure time. Critical Care Time: 40 Minutes of critical care time excluding procedures were used in the care of the patient. I came immediately to the bedside upon patient's arrival. I obtained history from EMS at the bedside. I discussed treatment plan with the nursing team members. I reviewed electronic record. Patient required multiple interventions and reassessments. Spoke with hospitalist and consultants for collaborative care ED Disposition Clinical Impression: Hypotension, Acute diarrhea, Pulmonary edema, Acute respiratory failure with hypoxia, Hx of CABG, COPD with exacerbation, Anemia Disposition: ADMITTED INPATIENT Is pt being admited?: Yes Condition: Stable Time of Disposition: 22:25 (Dr Bruno/hospitalist)
[2021-11-08] MEDS ORDERED: DOPamine 800 MG/D5W 250ML 800 MG/250 ML BAG IV ONE (21:34)
[2021-11-08 22:11] LABS: Color,Urine Colorless (Yellow)
[2021-11-08 22:13] LABS: Mucus,Urine FEW /HPF; RBC,Urine < 1.0 /HPF (0.0-6.0); WBC,Urine < 1.0 /HPF (0.0-6.0)
[2021-11-08] MEDS ORDERED: IBUPROFEN 600 MG TAB PO PRN (22:30)
[2021-11-08] MEDS ORDERED: MORPHINE 2 MG/1 ML INJ IV PRN (22:30)
[2021-11-08 22:55] LABS: Chol/HDL Ratio 2.23 %
[2021-11-08] MEDS ORDERED: NORepinephrine/NS 8 MG-250 ML 8 MG/250 ML INFUS..BTL IV SCH (23:00)
[2021-11-08] MEDS ORDERED: MAGNESIUM HYDROXIDE (MOM) ORAL LIQD UDC PO PRN (23:30)
[2021-11-08] MEDS ORDERED: ACETAMINOPHEN 325 MG TAB PO PRN (23:30)
[2021-11-08] MEDS ORDERED: MORPHINE 4 MG/1 ML INJ IV PRN (23:30)
[2021-11-08] MEDS ORDERED: ONDANSETRON 4 MG/2 ML INJ IV PRN (23:30)
[2021-11-08] MEDS ORDERED: DEXTROSE 50% IN WATER (25GM) 50 ML SYRINGE IV PRN (23:37)
--- NOTE | 2021-11-08 23:43 | History and Physical Report ---
History of Present Illness Date of examination: 11/08/21 Date of admission: 11/08/2021 Chief complaint: Shortness of Breath History of present illness: 71-year-old female with known history of coronary artery disease CABG in 2015, hypertension, COPD, peripheral vascular disease with left AKA presents to the emergency room today with complaint of progressive shortness of breath which has been ongoing for the past 3 weeks. Patient denies any chest pain, no fever or chills, no nausea or vomiting and no abdominal pain. States she had an episode of diarrhea about 2 weeks ago. Upon arrival in the emergency room O2 saturation was about 77 to 85% on room air. She was slightly hypotensive with systolic in the 70s. She was subsequently placed on nonrebreather and subsequently on BiPAP. Work-up in the emergency room today, labs significant for hemoglobin of 7.8 and hematocrit of 25.9. Troponin was 0.111 and subsequently 0.089. Urinalysis was essentially negative. Chest x-ray significant for bilateral pulmonary opacities and pleural effusion. This is concerning for congestive heart failure. Patient admitted and placed on diuretics. She has also been placed on dopamine drip. Past History Past Medical History: acute NC, COPD, diabetes, GERD, hypertension, hyperlipidemia, other (: Neck surgery, back surgery, stents placed in legs?, L leg amputation) Past Surgical History: Other (Open heart heart surgery in 2015) Social history: smoking (Current daily smoker) Family history: no significant family history Medications and Allergies Allergies Allergy/AdvReac Type Severity Reaction Status Date / Time acetaminophen [From Tylenol] Allergy CAUSES Verified 11/09/21 05:13 ISSUE WITH LIVER Antihistamines - Alkylamine Allergy Shortness Verified 11/09/21 05:13 of Breath codeine Allergy Headache Verified 11/09/21 05:13 Penicillins Allergy Angioedema Verified 11/09/21 05:13 Sulfa (Sulfonamide Allergy Rash Verified 11/09/21 05:13 Antibiotics) ANTIBIOTICS Allergy Severe EXTREME Uncoded 11/09/21 05:13 STOMACH PAIN Home Medications Medication Instructions Recorded Confirmed Last Taken Type DULoxetine [Cymbalta] 30 mg PO BID 10/06/21 10/06/21 Unknown History Omeprazole 40 mg PO DAILY 10/06/21 10/06/21 Unknown History Primidone [Mysoline] 50 mg PO BID 10/06/21 10/06/21 Unknown History glipiZIDE [Glucotrol] 10 mg PO DAILY 10/06/21 10/06/21 Unknown History Citalopram [Celexa] 20 mg PO DAILY 30 Days #30 tablet 10/09/21 Unknown Rx Furosemide [Lasix] 40 mg PO DAILY 30 Days #30 tab 10/09/21 Unknown Rx Gabapentin 900 mg PO BID 30 Days #180 capsule 10/09/21 Unknown Rx Metformin HCl [metFORMIN] 1,000 mg PO BID 30 Days #60 tab 10/09/21 Unknown Rx Rosuvastatin (Nf) [Crestor] 10 mg PO QHS 30 Days #60 tab 10/09/21 Unknown Rx levETIRAcetam [Keppra TAB] 500 mg PO BID 30 Days #60 tab 10/09/21 Unknown Rx propranoloL [Inderal] 10 mg PO TID 30 Days #90 tab 10/09/21 Unknown Rx Active Meds: Active Medications Acetaminophen (Acetaminophen 325 Mg Tab) 650 mg PO Q6H PRN PRN Reason: Pain MILD(1-3)/Fever >100.5/FAULKNER Dextrose (Dextrose 50% In Water (25gm) 50 Ml Syringe) 50 ml IV Q30MIN PRN; Protocol PRN Reason: Hypoglycemia Furosemide (Furosemide 40 Mg/4 Ml Inj) 40 mg IV BID@0600,1800 CHRISTOPHER NORepinephrine/NS 8 MG-250 ML (Norepinephrine/Ns 8 Mg-250 Ml (Double Conc)) 8 mg in 250 mls @ 3.75 mls/hr IV TITRATE CHRISTOPHER; Protocol Ibuprofen (Ibuprofen 600 Mg Tab) 600 mg PO Q6H PRN PRN Reason: Pain, Mild (1-3) Insulin Human Lispro (Insulin Lispro 100 Unit/Ml) 0 unit SUB-Q ACHS CHRISTOPHER; Protocol Magnesium Hydroxide (Magnesium Hydroxide (Mom) Oral Liqd Udc) 30 ml PO Q4H PRN PRN Reason: Constipation Morphine Sulfate (Morphine 2 Mg/1 Ml Inj) 2 mg IV Q4H PRN PRN Reason: Pain, Moderate (4-6) Morphine Sulfate (Morphine 2 Mg/1 Ml Inj) 2 mg IV Q4H PRN PRN Reason: Pain, Moderate (4-6) Morphine Sulfate (Morphine 4 Mg/1 Ml Inj) 4 mg IV Q4H PRN PRN Reason: Pain , Severe (7-10) Ondansetron HCl (Ondansetron 4 Mg/2 Ml Inj) 4 mg IV Q8H PRN PRN Reason: Nausea And Vomiting Sodium Chloride (Sodium Chloride 0.9% 10 Ml Flush Syringe) 10 ml IV BID CHRISTOPHER Sodium Chloride (Sodium Chloride 0.9% 10 Ml Flush Syringe) 10 ml IV PRN PRN PRN Reason: LINE FLUSH Sodium Chloride (Sodium Chloride 0.9% 10 Ml Flush Syringe) 10 ml IV BID CHRISTOPHER Sodium Chloride (Sodium Chloride 0.9% 10 Ml Flush Syringe) 10 ml IV PRN PRN PRN Reason: LINE FLUSH Review of Systems Constitutional: no fever, no chills Ears, nose, mouth and throat: no nasal congestion, no sore throat Cardiovascular: no chest pain, no palpitations Respiratory: shortness of breath, no cough Gastrointestinal: no abdominal pain, no nausea, no vomiting, no diarrhea Genitourinary Female: no pelvic pain, no flank pain, no dysuria, no hematuria Musculoskeletal: no neck pain, no low back pain Integumentary: no rash, no pruritis Neurological: no headaches, no confusion Psychiatric: no anxiety, no depression Endocrine: no polyphagia, no polydipsia, no polyuria Exam - Constitutional Vitals: Temp Pulse Resp BP Pulse Ox 98.3 F 116 H 20 58/40 93 11/08/21 20:54 11/08/21 23:16 11/08/21 23:16 11/08/21 23:16 11/08/21 23:16 General appearance: Present: mild distress, well-nourished, other (On Bipap) - EENT Eyes: Present: PERRL, EOM intact. Absent: scleral icterus ENT: hearing intact, clear oral mucosa, dentition normal - Neck Neck: Present: supple, normal ROM - Respiratory Respiratory effort: normal Respiratory: bilateral: rales - Cardiovascular Rhythm: regular Heart Sounds: Present: S1 & S2. Absent: gallop, systolic murmur, diastolic murmur, rub, click - Extremities Extremities: no ischemia, pulses intact, No edema, Full ROM, abnormal (Left AKA) Extremity abnormal: edema (1+ right lower extremity edema) Peripheral Pulses: within normal limits - Abdominal General gastrointestinal: Present: soft, non-tender, non-distended, normal bowel sounds. Absent: mass - Integumentary Integumentary: Present: clear, warm, dry, normal turgor. Absent: rash - Musculoskeletal Musculoskeletal: strength equal bilaterally - Psychiatric Psychiatric: appropriate mood/affect, intact judgment & insight, memory intact, cooperative - Neurologic Neurologic: CNII-XII intact, no focal deficits, moves all extremities HEART Score - HEART Score Troponin: Troponin T 0.111 ng/mL (0.00-0.029) H* 11/08/21 19:42 Results - Labs CBC & Chem 7: 11/09/21 04:00 11/09/21 04:00 Labs: Abnormal lab results 11/08/21 11/08/21 11/08/21 Range/Units 19:42 19:42 19:42 RBC 3.02 L (3.65-5.03) M/mm3 Hgb 7.6 L (10.1-14.3) gm/dl Hct 24.3 L (30.3-42.9) % MCH 25 L (28-32) pg RDW 21.2 H (13.2-15.2) % Lymph % (Auto) 8.9 L (13.4-35.0) % Lymph # (Auto) 0.7 L (1.2-5.4) K/mm3 Seg Neutrophils % 86.2 H (40.0-70.0) % Sodium 129 L (137-145) mmol/L Chloride 94.6 L (98-107) mmol/L Creatinine 0.5 L (0.6-1.2) mg/dL Glucose 152 H (65-100) mg/dL Calcium 8.2 L (8.4-10.2) mg/dL Alkaline Phosphatase 151 H (35-129) units/L Troponin T 0.111 H* (0.00-0.029) ng/mL NT-Pro-B Natriuret Pep (0-900) pg/mL Total Protein 5.4 L (6.3-8.2) g/dL Albumin 3.0 L (3.9-5) g/dL HDL Cholesterol 72 H (40-59) mg/dL 11/08/21 Range/Units 19:42 RBC (3.65-5.03) M/mm3 Hgb (10.1-14.3) gm/dl Hct (30.3-42.9) % MCH (28-32) pg RDW (13.2-15.2) % Lymph % (Auto) (13.4-35.0) % Lymph # (Auto) (1.2-5.4) K/mm3 Seg Neutrophils % (40.0-70.0) % Sodium (137-145) mmol/L Chloride (98-107) mmol/L Creatinine (0.6-1.2) mg/dL Glucose (65-100) mg/dL Calcium (8.4-10.2) mg/dL Alkaline Phosphatase (35-129) units/L Troponin T (0.00-0.029) ng/mL NT-Pro-B Natriuret Pep 47574 H (0-900) pg/mL Total Protein (6.3-8.2) g/dL Albumin (3.9-5) g/dL HDL Cholesterol (40-59) mg/dL Assessment and Plan Assessment: 1.CHF exacerbation-EF of 35 to 40% on 10/05/2021. 2.Hypoxia-currently on BiPAP 3.Elevated troponinpossibly secondary to demand ischemia 4.Diarrhea 5.Hypotension-placed on dopamine. 6.Anemia- chronic Plan: 1. Patient admitted and placed on diuretics. 2. We will monitor inputs and outputs and also monitor daily weight. 3. We will trend the troponin levels. 4. Request cardiology evaluation and recommendation. 5. We will resume routine home medications once reconciled. DVT Prophylaxis:SQ Heparin Code Status: Full Code
[2021-11-09 05:04] LABS: Basophils # (Auto) 0.1 K/mm3 (0.0-0.1); Eosinophils # (Auto) 0.1 K/mm3 (0.0-0.4); Eosinophils % (Auto) 1.8 % (0.0-4.3); Hematocrit 25.9 % (30.3-42.9); Hemoglobin 7.8 gm/dl (10.1-14.3); Lymphocytes # (Auto) 0.8 K/mm3 (1.2-5.4); Mean Corpuscular HGB Conc 30 % (30-34); Mean Corpuscular Volume 82 fl (79-97); Monocytes # (Auto) 0.6 K/mm3 (0.0-0.8); Monocytes % (Auto) 7.2 % (0.0-7.3); Platelet Count 406 K/mm3 (140-440); Red Blood Count 3.17 M/mm3 (3.65-5.03)
[2021-11-09] MEDS: FUROSEMIDE 40 MG/4 ML INJ IV SCH ×2 (05:04→18:16)
[2021-11-09 05:08] LABS: Red Cell Distribution Width 20.7 % (13.2-15.2)
[2021-11-09 05:15] LABS: Blood Urea Nitrogen 10 mg/dL (7-17); Calcium 8.1 mg/dL (8.4-10.2); Hemolysis Index 0
[2021-11-09 05:32] LABS: BUN/Creatinine Ratio 20
[2021-11-09] MEDS: MORPHINE 2 MG/1 ML INJ IV PRN (08:22)
[2021-11-09] MEDS: GABAPENTIN 300 MG CAP PO SCH ×2 (09:34→22:08)
[2021-11-09] MEDS: DULoxetine 30 MG CAP PO SCH ×2 (09:35→22:08)
[2021-11-09] MEDS: PANTOPRAZOLE 40 MG TAB PO SCH (09:35)
[2021-11-09] MEDS: CITALOPRAM 20 MG TAB PO SCH (09:35)
[2021-11-09] MEDS: levETIRAcetam 500 MG TAB PO SCH ×2 (09:35→22:09)
[2021-11-09] MEDS: PRIMIDONE 50 MG TAB PO SCH ×2 (09:37→22:09)
[2021-11-09] MEDS: INSULIN LISPRO 100 UNIT/ML SUB-Q SCH ×4 (09:37→22:08)
[2021-11-09 11:49] LABS: C-Reactive Protein 3.4 mg/dL (0.00-1.30)
--- NOTE | 2021-11-09 12:07 | Progress Note ---
<CADE FERRIS - Last Filed: 11/09/21 16:13> Assessment and Plan Assessment and plan: This is a 71-year-old male with known past medical history CAD s/p CABG in 2014, HTN, COPD, current tobacco dependence, PVD s/p LLE AKA, GI ulcers, and anemia admitted for hypotension, acute of chronic CHF exacerbation, and acute hypoxic respiratory failure Hospital Course to Date: 11/09: Off Levophed gtt this am, VSS, on 5L NC. Patient still complaining of chest pressure with abdominal and flank pain. Will get CTA chest/abd/pelvis for further eval. Continue IV lasix BID for now, cardiololgy is following. D/w CCM is patient remains off pressors this afternoon okay to transfer patient to [facility]. Assessment and Plan #Acute of Chronic CHF exacerbation with reduced EF of 35 to 40% on 10/05/2021 #Elevated Troponin #H/o Hypertension #CAD s/p CABG - Presented with SOB, orthopnea, elevated BNP, and LE edema - Patient was also noted to be hypotensive in the ED and Levophed was initiated - Off levo this am, remains in SR, VSS - Troponin positive X2, downtrending. possibly secondary to demand ischemia - EKG shows SR with no significant ST changes - Echo from 09/2021 reviewed EF 35 to 40% - On IV Lasix BID - Cardiology consulted, appreciate recommendations - Patient still c/o of Chest pressure/abdominal and flank pain- CTA chest/abd/pelvis ordered - Resume home meds - Continue blood pressure monitor per protocol - Maintain MAP above 65 and SBP less than 160 - VTE phrop - Strick I&Os and daily weight - CCM consulted, appreciate recommendations #Acute Hypoxic Respiratory Failure #H/o COPD, current smoker - Probably secondary to above - Desated in the 70s on RA, c/o SOB and orthopnea - Chest x-ray significant for bilateral pulmonary opacities and pleural effusion. This is concerning for congestive heart failure - Currently on 5L NC - Continue IV lasix BID - Patient complaining of chest pressure, abdominal and flank pain- CTA c hest/abd/plevis pending - Continue O2 supplementation as tolerated - Continue SPO2 monitoring for SPO2 goal above 92% - CCM consulted, appreciate recommendations #Abdominal Pain #Diarrhea - Unknown Etiology - Patient reported chest pressure with abdominal pain, flank pain, and diarrhea - Cardiac w/up as described above - No diarrhea reported sinced admit - CTA chest/abd/pelvis pending - Mildly elevated Alkaline phosp, will continue to trend LFTs #Anemia of Chronic Disease - H&H stable, no s/s of any active bleeding - Continue to trend CBC - Transfuse for Hgb less than 7 #Tobacco Dependence - Patient reported a 45 years smoking history. She stated she has not smoked for 5 days - Smoking cessation education provided. Patient verbalized understanding and agreed with the info provided - Denied any urges at this time. Nicotine patch if needed #Peripheral Vascular Disease(PVD) s/p LLE AKA - Chronic - Home Plavix and gabapentin resumed #Hyperglycemia - 09/2021 Hgb A1c 6.0 - BG check and SSI initiated ACHS - Avoid Hypoglycemia - While critically ill target blood glucose of 140-180 #GI/DVT Prophylaxis - PPI- Protonix - Lovenox SubQ - SCDs to bilateral lower extremities while in bed #Advance Care Planning - Disease education data, care plan, diagnoses, and prognosis were discussed with the patient at the bedside. Patient is a FULL code. Patient acknowledged understanding and agreed with current care plan. The high probability of a clinically significant, sudden or life threatening deterioration of the [multiple] system(s) required my full and direct attention, intervention and personal management. The aggregate critical care time was [60] minutes. This time is in addition to time spent performing reported procedures but includes the following: [x] Data Review and interpretation [x] Patient assessment and monitoring of vital signs [x] Documentation [x] Medication orders and management Disposition Plan: Transfer to [facility] Total Time Spent with Patient (Minutes): 60 History Interval history: Patient seen and examined at the bedside. Fully AAO, on 5L NC, c/o of cest pressure, abdominal pain, and flank pain. Patient reported that she has been experiencing these symptoms for several days now. Levophed gtt is off this am, in SR on the monitor with no significant ST changes, VSS. Hospitalist Physical - Constitutional Vitals: Temp Pulse Resp BP Pulse Ox 98.2 F 92 H 22 127/56 95 11/09/21 03:40 11/09/21 10:15 11/09/21 10:15 11/09/21 10:15 11/09/21 10:15 General appearance: Present: no acute distress, well-nourished, obese - EENT Eyes: Present: PERRL, EOM intact ENT: hearing intact - Neck Neck: Present: normal ROM - Respiratory Respiratory effort: normal Respiratory: bilateral: diminished - Cardiovascular Rhythm: regular Heart Sounds: Present: S1 & S2 - Extremities Extremities: no ischemia, pulses intact, pulses symmetrical, abnormal (Left AKA) Extremity abnormal: edema - Peripheral Assessment Right Lower Extremity Edema Type: Pitting Edema Degree: 2+ Capillary Refill: < 3 seconds Skin Temperature: Warm Generalized Edema Type: Non-pitting Edema Degree: 2+ Capillary Refill: < 3 seconds Skin Temperature: Warm Peripheral Pulses: within normal limits - Abdominal General gastrointestinal: soft, non-distended, normal bowel sounds - Integumentary Integumentary: Present: warm, dry - Psychiatric Psychiatric: appropriate mood/affect, cooperative - Neurologic Neurologic: CNII-XII intact, moves all extremities - Allied Health Allied health notes reviewed: nursing HEART Score - HEART Score Troponin: Troponin T 0.089 ng/mL (0.00-0.029) H 11/08/21 23:19 Results - Labs CBC & Chem 7: 11/09/21 04:00 11/09/21 04:00 Labs: Laboratory Last Values WBC 8.0 K/mm3 (4.5-11.0) 11/09/21 04:00 RBC 3.17 M/mm3 (3.65-5.03) L 11/09/21 04:00 Hgb 7.8 gm/dl (10.1-14.3) L 11/09/21 04:00 Hct 25.9 % (30.3-42.9) L 11/09/21 04:00 MCV 82 fl (79-97) 11/09/21 04:00 MCH 25 pg (28-32) L 11/09/21 04:00 MCHC 30 % (30-34) 11/09/21 04:00 RDW 20.7 % (13.2-15.2) H 11/09/21 04:00 Plt Count 406 K/mm3 (140-440) 11/09/21 04:00 Lymph % (Auto) 10.0 % (13.4-35.0) L 11/09/21 04:00 [place] % (Auto) 7.2 % (0.0-7.3) 11/09/21 04:00 Eos % (Auto) 1.8 % (0.0-4.3) 11/09/21 04:00 Baso % (Auto) 1.0 % (0.0-1.8) 11/09/21 04:00 Lymph # (Auto) 0.8 K/mm3 (1.2-5.4) L 11/09/21 04:00 [place] # (Auto) 0.6 K/mm3 (0.0-0.8) 11/09/21 04:00 Eos # (Auto) 0.1 K/mm3 (0.0-0.4) 11/09/21 04:00 Baso # (Auto) 0.1 K/mm3 (0.0-0.1) 11/09/21 04:00 Seg Neutrophils % 80.0 % (40.0-70.0) H 11/09/21 04:00 Seg Neutrophils # 6.4 K/mm3 (1.8-7.7) 11/09/21 04:00 PT 13.6 Sec. (12.2-14.9) 11/08/21 19:42 INR 0.94 (0.87-1.13) 11/08/21 19:42 APTT 27.3 Sec. (24.2-36.6) 11/08/21 19:42 D-Dimer 825.58 ng/mlDDU (0-234) H 11/09/21 10:45 Sodium 134 mmol/L (137-145) L 11/09/21 04:00 Potassium 4.3 mmol/L (3.6-5.0) 11/09/21 04:00 Chloride 98.8 mmol/L (98-107) 11/09/21 04:00 Carbon Dioxide 21 mmol/L (22-30) L 11/09/21 04:00 Anion Gap 19 mmol/L 11/09/21 04:00 BUN 10 mg/dL (7-17) 11/09/21 04:00 Creatinine 0.5 mg/dL (0.6-1.2) L 11/09/21 04:00 Estimated GFR > 60 ml/min 11/09/21 04:00 BUN/Creatinine Ratio 20 % 11/09/21 04:00 Glucose 179 mg/dL (65-100) H 11/09/21 04:00 POC Glucose 198 mg/dL (70-105) H 11/09/21 07:28 Lactic Acid 0.80 mmol/L (0.7-2.0) 11/08/21 23:19 Calcium 8.1 mg/dL (8.4-10.2) L 11/09/21 04:00 Total Bilirubin 0.20 mg/dL (0.1-1.2) 11/08/21 19:42 AST 25 units/L (5-40) 11/08/21 19:42 ALT 15 units/L (7-56) 11/08/21 19:42 Alkaline Phosphatase 151 units/L (35-129) H 11/08/21 19:42 Lactate Dehydrogenase 99 units/L (91-180) 11/09/21 10:45 Troponin T 0.089 ng/mL (0.00-0.029) H 11/08/21 23:19 C-Reactive Protein 3.40 mg/dL (0.00-1.30) H 11/09/21 10:45 NT-Pro-B Natriuret Pep 41508 pg/mL (0-900) H 11/08/21 19:42 Total Protein 5.4 g/dL (6.3-8.2) L 11/08/21 19:42 Albumin 3.0 g/dL (3.9-5) L 11/08/21 19:42 Albumin/Globulin Ratio 1.3 % 11/08/21 19:42 Triglycerides 98 mg/dL (2-149) 11/08/21 19:42 Cholesterol 161 mg/dL (50-199) 11/08/21 19:42 LDL Cholesterol Direct 64 mg/dL (50-130) 11/08/21 19:42 HDL Cholesterol 72 mg/dL (40-59) H 11/08/21 19:42 Cholesterol/HDL Ratio 2.23 % 11/08/21 19:42 Urine Color Colorless (Yellow) 11/08/21 21:39 Urine Turbidity Clear (Clear) 11/08/21 21:39 Specific [place] (Man) 1.015 (1.003-1.030) 11/08/21 21:39 Ur Protein (Man) <30 mg dl mg/dL (Negative) 11/08/21 21:39 Ur Ketones (Man) Negative (Negative) 11/08/21 21:39 Ur Nitrite (Man) Negative (Negative) 11/08/21 21:39 Urine Bilirubin (Man) Negative (Negative) 11/08/21 21:39 Leukocyte Esterase (Man) Small (Negative) 11/08/21 21:39 Urine WBC (Auto) < 1.0 /HPF (0.0-6.0) 11/08/21 21:39 Urine RBC (Auto) < 1.0 /HPF (0.0-6.0) 11/08/21 21:39 Urine RBC (Manual) Negative (Negative) 11/08/21 21:39 Urine Mucus Few /HPF 11/08/21 21:39 Microbiology: Microbiology 11/08/21 19:42 Peripheral/Venous Blood Culture - Preliminary Culture in Progress 11/08/21 19:42 Peripheral/Venous Blood Culture - Preliminary Culture in Progress Sanchez/IV: Voiding Method Indwelling Catheter Active Medications - Current Medications Current Medications: Generic Name Dose Route Start Last Admin Trade Name Freq PRN Reason Stop Dose Admin Atorvastatin Calcium 20 mg 11/09/21 22:00 Atorvastatin 20 Mg Tab PO QHS CHRISTOPHER Citalopram Hydrobromide 20 mg 11/09/21 10:00 11/09/21 09:35 Citalopram 20 Mg Tab PO 20 mg DAILY CHRISTOPHER Administration Dextrose 0 ml 11/08/21 23:37 Dextrose 50% In Water (25gm) 50 Ml Syringe IV Q30MIN PRN Hypoglycemia Protocol Duloxetine HCl 30 mg 11/09/21 10:00 11/09/21 09:35 Duloxetine 30 Mg Cap PO 30 mg BID CHRISTOPHER Administration Furosemide 40 mg 11/09/21 06:00 11/09/21 05:04 Furosemide 40 Mg/4 Ml Inj IV Not Given BID@0600,1800 CHRISTOPHER Gabapentin 900 mg 11/09/21 10:00 11/09/21 09:34 Gabapentin 300 Mg Cap PO 900 mg BID CHRISTOPHER Administration NORepinephrine/NS 8 MG-250 ML 8 mg in 250 mls @ 3.75 mls/hr 11/08/21 23:00 11/09/21 07:55 Norepinephrine/Ns 8 Mg-250 Ml (Double Conc) IV 12 mcg/min TITRATE CHRISTOPHER 22.5 mls/hr Titration Protocol 2 MCG/MIN Insulin Human Lispro 0 unit 11/09/21 07:30 09/02/22 09:37 Insulin Lispro 100 Unit/Ml SUB-Q 2 unit ACHS CHRISTOPHER Administration Protocol Levetiracetam 500 mg 11/09/21 10:00 11/09/21 09:35 Levetiracetam 500 Mg Tab PO 500 mg BID CHRISTOPHER Administration Magnesium Hydroxide 30 ml 11/08/21 23:30 Magnesium Hydroxide (Mom) Oral Liqd Udc PO Q4H PRN Constipation Morphine Sulfate 2 mg 11/08/21 23:30 11/09/21 08:22 Morphine 2 Mg/1 Ml Inj IV 2 mg Q4H PRN Administration Pain, Moderate (4-6) Morphine Sulfate 4 mg 11/08/21 23:30 Morphine 4 Mg/1 Ml Inj IV Q4H PRN Pain , Severe (7-10) Ondansetron HCl 4 mg 11/08/21 23:30 Ondansetron 4 Mg/2 Ml Inj IV Q8H PRN Nausea And Vomiting Pantoprazole Sodium 40 mg 11/09/21 10:00 11/09/21 09:35 Pantoprazole 40 Mg Tab PO 40 mg DAILY CHRISTOPHER Administration Primidone 50 mg 11/09/21 10:00 11/09/21 09:37 Primidone 50 Mg Tab PO 50 mg BID CHRISTOPHER Administration Propranolol HCl 10 mg 11/09/21 08:00 Propranolol 10 Mg Tab PO TID CHRISTOPHER Sodium Chloride 10 ml 11/09/21 10:00 11/09/21 09:35 Sodium Chloride 0.9% 10 Ml Flush Syringe IV 10 ml BID CHRISTOPHER Administration Sodium Chloride 10 ml 11/08/21 22:26 Sodium Chloride 0.9% 10 Ml Flush Syringe IV PRN PRN LINE FLUSH <AMANDA BROOKS - Last Filed: 11/10/21 10:29> Assessment and Plan Assessment and plan: I saw and evaluated the patient. I agree with the findings and the plan of care as documented in the Nurse Practitioner's~note, with the following corrections and additions. Hospitalist Physical - Constitutional Vitals: Temp Pulse Resp BP Pulse Ox 97.4 F L 81 17 139/63 97 11/10/21 03:18 11/10/21 06:00 11/10/21 06:00 11/10/21 06:00 11/10/21 06:00 HEART Score - HEART Score Troponin: Troponin T 0.089 ng/mL (0.00-0.029) H 11/08/21 23:19 Results - Labs CBC & Chem 7: 11/10/21 06:00 11/10/21 04:12 Labs: Laboratory Last Values WBC 5.9 K/mm3 (4.5-11.0) 11/10/21 06:00 RBC 2.80 M/mm3 (3.65-5.03) L 11/10/21 06:00 Hgb 7.1 gm/dl (10.1-14.3) L 11/10/21 06:00 Hct 22.4 % (30.3-42.9) L 11/10/21 06:00 MCV 80 fl (79-97) 11/10/21 06:00 MCH 26 pg (28-32) L 11/10/21 06:00 MCHC 32 % (30-34) 11/10/21 06:00 RDW 20.5 % (13.2-15.2) H 11/10/21 06:00 Plt Count 276 K/mm3 (140-440) 11/10/21 06:00 Lymph % (Auto) 16.1 % (13.4-35.0) 11/10/21 06:00 [place] % (Auto) 9.9 % (0.0-7.3) H 11/10/21 06:00 Eos % (Auto) 4.1 % (0.0-4.3) 11/10/21 06:00 Baso % (Auto) 1.4 % (0.0-1.8) 11/10/21 06:00 Lymph # (Auto) 1.0 K/mm3 (1.2-5.4) L 11/10/21 06:00 [place] # (Auto) 0.6 K/mm3 (0.0-0.8) 11/10/21 06:00 Eos # (Auto) 0.2 K/mm3 (0.0-0.4) 11/10/21 06:00 Baso # (Auto) 0.1 K/mm3 (0.0-0.1) 11/10/21 06:00 Seg Neutrophils % 68.5 % (40.0-70.0) 11/10/21 06:00 Seg Neutrophils # 4.1 K/mm3 (1.8-7.7) 11/10/21 06:00 PT 13.6 Sec. (12.2-14.9) 11/08/21 19:42 INR 0.94 (0.87-1.13) 11/08/21 19:42 APTT 27.3 Sec. (24.2-36.6) 11/08/21 19:42 D-Dimer 825.58 ng/mlDDU (0-234) H 11/09/21 10:45 Sodium 133 mmol/L (137-145) L 11/10/21 04:12 Potassium 4.2 mmol/L (3.6-5.0) 11/10/21 04:12 Chloride 99.1 mmol/L (98-107) 11/10/21 04:12 Carbon Dioxide 23 mmol/L (22-30) 11/10/21 04:12 Anion Gap 15 mmol/L 11/10/21 04:12 BUN 11 mg/dL (7-17) 11/10/21 04:12 Creatinine 0.6 mg/dL (0.6-1.2) 11/10/21 04:12 Estimated GFR > 60 ml/min 11/10/21 04:12 BUN/Creatinine Ratio 18 % 11/10/21 04:12 Glucose 138 mg/dL (65-100) H 11/10/21 04:12 POC Glucose 160 mg/dL (70-105) H 11/10/21 00:13 Lactic Acid 0.80 mmol/L (0.7-2.0) 11/08/21 23:19 Calcium 8.2 mg/dL (8.4-10.2) L 11/10/21 04:12 Phosphorus 3.90 mg/dL (2.5-4.5) 11/10/21 04:12 Magnesium 1.40 mg/dL (1.7-2.3) L 11/10/21 04:12 Total Bilirubin < 0.20 mg/dL (0.1-1.2) 11/10/21 04:12 Direct Bilirubin < 0.2 mg/dL (0-0.2) 11/10/21 04:12 Indirect Bilirubin 0.0 mg/dL 11/10/21 04:12 AST 9 units/L (5-40) 11/10/21 04:12 ALT 8 units/L (7-56) 11/10/21 04:12 Alkaline Phosphatase 114 units/L (35-129) 11/10/21 04:12 Lactate Dehydrogenase 99 units/L (91-180) 11/09/21 10:45 Troponin T 0.089 ng/mL (0.00-0.029) H 11/08/21 23:19 C-Reactive Protein 3.40 mg/dL (0.00-1.30) H 11/09/21 10:45 NT-Pro-B Natriuret Pep 85790 pg/mL (0-900) H 11/08/21 19:42 Total Protein 4.6 g/dL (6.3-8.2) L 11/10/21 04:12 Albumin 2.4 g/dL (3.9-5) L 11/10/21 04:12 Albumin/Globulin Ratio 1.1 % 11/10/21 04:12 Triglycerides 98 mg/dL (2-149) 11/08/21 19:42 Cholesterol 161 mg/dL (50-199) 11/08/21 19:42 LDL Cholesterol Direct 64 mg/dL (50-130) 11/08/21 19:42 HDL Cholesterol 72 mg/dL (40-59) H 11/08/21 19:42 Cholesterol/HDL Ratio 2.23 % 11/08/21 19:42 Urine Color Colorless (Yellow) 11/08/21 21:39 Urine Turbidity Clear (Clear) 11/08/21 21:39 Specific [place] (Man) 1.015 (1.003-1.030) 11/08/21 21:39 Ur Protein (Man) <30 mg dl mg/dL (Negative) 11/08/21 21:39 Ur Ketones (Man) Negative (Negative) 11/08/21 21:39 Ur Nitrite (Man) Negative (Negative) 11/08/21 21:39 Urine Bilirubin (Man) Negative (Negative) 11/08/21 21:39 Leukocyte Esterase (Man) Small (Negative) 11/08/21 21:39 Urine WBC (Auto) < 1.0 /HPF (0.0-6.0) 11/08/21 21:39 Urine RBC (Auto) < 1.0 /HPF (0.0-6.0) 11/08/21 21:39 Urine RBC (Manual) Negative (Negative) 11/08/21 21:39 Urine Mucus Few /HPF 11/08/21 21:39 Microbiology: Microbiology 11/08/21 19:42 Peripheral/Venous Blood Culture - Preliminary NO GROWTH AFTER 24 HOURS 11/08/21 19:42 Peripheral/Venous Blood Culture - Preliminary NO GROWTH AFTER 24 HOURS Sanchez/IV: Voiding Method Indwelling Catheter Active Medications - Current Medications Current Medications: Generic Name Dose Route Start Last Admin Trade Name Freq PRN Reason Stop Dose Admin Atorvastatin Calcium 80 mg 11/09/21 22:00 11/09/21 22:09 Atorvastatin 40 Mg Tab PO 80 mg QHS CHRISTOPHER Administration Carvedilol 3.125 mg 11/09/21 22:00 11/09/21 22:08 Carvedilol 3.125 Mg Tab PO 3.125 mg BID CHRISTOPHER Administration Citalopram Hydrobromide 20 mg 11/09/21 10:00 11/09/21 09:35 Citalopram 20 Mg Tab PO 20 mg DAILY CHRISTOPHER Administration Clopidogrel Bisulfate 75 mg 11/10/21 10:00 Clopidogrel 75 Mg Tab PO QDAY [facility] Dextrose 0 ml 11/08/21 23:37 Dextrose 50% In Water (25gm) 50 Ml Syringe IV Q30MIN PRN Hypoglycemia Protocol Duloxetine HCl 30 mg 11/09/21 10:00 11/09/21 22:08 Duloxetine 30 Mg Cap PO 30 mg BID CHRISTOPHER Administration Enoxaparin Sodium 40 mg 11/10/21 10:00 Enoxaparin 40 Mg/0.4 Ml Inj SUB-Q QDAY@1000 [facility] Protocol Furosemide 40 mg 11/09/21 06:00 11/10/21 05:58 Furosemide 40 Mg/4 Ml Inj IV 40 mg BID@0600,1800 CHRISTOPHER Administration Gabapentin 900 mg 11/09/21 10:00 11/09/21 22:08 Gabapentin 300 Mg Cap PO 900 mg BID CHRISTOPHER Administration Magnesium Sulfate 4 gm in 100 mls @ 25 mls/hr 11/10/21 10:00 Magnesium Sulfate 4gm/100ml IV 11/10/21 14:00 ONCE@1000 [facility] Insulin Human Lispro 0 unit 11/09/21 07:30 11/09/21 22:08 Insulin Lispro 100 Unit/Ml SUB-Q Not Given ACHS [facility] Protocol Levetiracetam 500 mg 11/09/21 10:00 11/09/21 22:09 Levetiracetam 500 Mg Tab PO 500 mg BID CHRISTOPHER Administration Losartan Potassium 25 mg 11/10/21 10:00 Losartan 25 Mg Tab PO QDAY CHRISTOPHER Magnesium Hydroxide 30 ml 11/08/21 23:30 Magnesium Hydroxide (Mom) Oral Liqd Udc PO Q4H PRN Constipation Morphine Sulfate 2 mg 11/08/21 23:30 11/09/21 08:22 Morphine 2 Mg/1 Ml Inj IV 2 mg Q4H PRN Administration Pain, Moderate (4-6) Ondansetron HCl 4 mg 11/08/21 23:30 Ondansetron 4 Mg/2 Ml Inj IV Q8H PRN Nausea And Vomiting Pantoprazole Sodium 40 mg 11/09/21 10:00 11/09/21 09:35 Pantoprazole 40 Mg Tab PO 40 mg DAILY CHRISTOPHER Administration Primidone 50 mg 11/09/21 10:00 11/09/21 22:09 Primidone 50 Mg Tab PO 50 mg BID CHRISTOPHER Administration Sodium Chloride 10 ml 11/09/21 10:00 11/09/21 22:09 Sodium Chloride 0.9% 10 Ml Flush Syringe IV 10 ml BID CHRISTOPHER Administration Sodium Chloride 10 ml 11/08/21 22:26 Sodium Chloride 0.9% 10 Ml Flush Syringe IV PRN PRN LINE FLUSH Nutrition/Malnutrition Assess - Dietary Evaluation Nutrition/Malnutrition Findings: Nutrition Notes Start: 11/09/21 16:36 Freq: Status: Active Protocol: Document 11/09/21 16:36 [facility] (Rec: 11/09/21 16:42 [facility] [id number]) Nutrition Notes Need for Assessment generated from: [email or web address] maker Initial or Follow up Assessment Current Diagnosis COPD,Coronary Artery Disease, Hypertension Other Pertinent Diagnosis CHF exacerbation, Hypotension, Anemia, PVD, s/p (L) AKA Current Diet Cardiac/Consistent Labs/Tests BG 179 Pertinent Medications Lasix, Levophed gtt Height 5 ft 4 in Weight 54 kg [place] Body Weight (kg) 54.54 BMI 20.4 Weight change and time frame AdjBW for AKA: 60kg Adj BMI: 22.6 Subjective/Other Information Pt screened for skin risk ( Felipe score: 16). Pt c/o SOB for the past 3 wks. Currently on BiPap support. Burn Absent Trauma Absent Skin Integrity/Comment (L) medial buttock wound Minimum of two criteria No #1 Nutrition Diagnosis Predicted suboptimal energy intake Etiology SOB As Evidenced by Signs and Symptoms pt on and off BiPap support Is patient on ventilator? No Is Patient Ambulatory and/or Out of Bed No REE-([place]-confined to bed) 1260.072 Kcal/Kg value to use for calculation 25 Approximate Energy Requirements Using 1350 kcal/Kg Calculation Used for Recommendations Kcal/kg Additional Notes Pro needs 1.2-2g/k-108g/ day Fluid needs per MD. Nutrition Intervention Change Diet Order: Continue current diet order Goal #1 PO intake to meet at least 75% energy and pro needs Anticipated Discharge Needs: Unable to identify at this time Follow-Up By: 11/13/21 Additional Comments F/U: intakes
--- NOTE | 2021-11-09 12:44 | Consultation ---
History of Present Illness Consult date: 11/09/21 Requesting physician: GRACIE BLAS Reason for consult: other (Hypotension; Acute Hypoxemic Respiratory Failure) History of present illness: PULMONARY/CCM CONSULT NOTE (Full dictation # [id number]) Please see dictated notes for full details Past History Past Medical History: acute VA, COPD, diabetes, GERD, hypertension, hyperlipidemia, other (: Neck surgery, back surgery, stents placed in legs?, L leg amputation) Past Surgical History: Other (Open heart heart surgery in 2015) Social history: smoking (Current daily smoker) Family history: no significant family history Medications and Allergies Allergies Allergy/AdvReac Type Severity Reaction Status Date / Time acetaminophen [From Tylenol] Allergy CAUSES Verified 11/09/21 05:13 ISSUE WITH LIVER Antihistamines - Alkylamine Allergy Shortness Verified 11/09/21 05:13 of Breath codeine Allergy Headache Verified 11/09/21 05:13 Penicillins Allergy Angioedema Verified 11/09/21 05:13 Sulfa (Sulfonamide Allergy Rash Verified 11/09/21 05:13 Antibiotics) ANTIBIOTICS Allergy Severe EXTREME Uncoded 11/09/21 05:13 STOMACH PAIN Home Medications Medication Instructions Recorded Confirmed Last Taken Type DULoxetine [Cymbalta] 30 mg PO BID 10/06/21 10/06/21 Unknown History Omeprazole 40 mg PO DAILY 10/06/21 10/06/21 Unknown History Primidone [Mysoline] 50 mg PO BID 10/06/21 10/06/21 Unknown History glipiZIDE [Glucotrol] 10 mg PO DAILY 10/06/21 10/06/21 Unknown History Citalopram [Celexa] 20 mg PO DAILY 30 Days #30 tablet 10/09/21 Unknown Rx Furosemide [Lasix] 40 mg PO DAILY 30 Days #30 tab 10/09/21 Unknown Rx Gabapentin 900 mg PO BID 30 Days #180 capsule 10/09/21 Unknown Rx Metformin HCl [metFORMIN] 1,000 mg PO BID 30 Days #60 tab 10/09/21 Unknown Rx Rosuvastatin (Nf) [Crestor] 10 mg PO QHS 30 Days #60 tab 10/09/21 Unknown Rx levETIRAcetam [Keppra TAB] 500 mg PO BID 30 Days #60 tab 10/09/21 Unknown Rx propranoloL [Inderal] 10 mg PO TID 30 Days #90 tab 10/09/21 Unknown Rx Active Meds: Active Medications Atorvastatin Calcium (Atorvastatin 20 Mg Tab) 20 mg PO QHS [facility] Citalopram Hydrobromide (Citalopram 20 Mg Tab) 20 mg PO DAILY [facility] Last Admin: 11/09/21 09:35 Dose: 20 mg Dextrose (Dextrose 50% In Water (25gm) 50 Ml Syringe) 0 ml IV Q30MIN PRN; Protocol PRN Reason: Hypoglycemia Duloxetine HCl (Duloxetine 30 Mg Cap) 30 mg PO BID [facility] Last Admin: 11/09/21 09:35 Dose: 30 mg Furosemide (Furosemide 40 Mg/4 Ml Inj) 40 mg IV BID@0600,1800 [facility] Last Admin: 11/09/21 05:04 Dose: Not Given Gabapentin (Gabapentin 300 Mg Cap) 900 mg PO BID [facility] Last Admin: 11/09/21 09:34 Dose: 900 mg NORepinephrine/NS 8 MG-250 ML (Norepinephrine/Ns 8 Mg-250 Ml (Double Conc)) 8 mg in 250 mls @ 3.75 mls/hr IV TITRATE [facility]; Protocol Last Titration: 11/09/21 07:55 Dose: 12 mcg/min, 22.5 mls/hr Insulin Human Lispro (Insulin Lispro 100 Unit/Ml) 0 unit SUB-Q ACHS [facility]; Protocol Last Admin: 11/09/21 12:10 Dose: Not Given Levetiracetam (Levetiracetam 500 Mg Tab) 500 mg PO BID [facility] Last Admin: 11/09/21 09:35 Dose: 500 mg Magnesium Hydroxide (Magnesium Hydroxide (Mom) Oral Liqd Udc) 30 ml PO Q4H PRN PRN Reason: Constipation Morphine Sulfate (Morphine 2 Mg/1 Ml Inj) 2 mg IV Q4H PRN PRN Reason: Pain, Moderate (4-6) Last Admin: 11/09/21 08:22 Dose: 2 mg Morphine Sulfate (Morphine 4 Mg/1 Ml Inj) 4 mg IV Q4H PRN PRN Reason: Pain , Severe (7-10) Ondansetron HCl (Ondansetron 4 Mg/2 Ml Inj) 4 mg IV Q8H PRN PRN Reason: Nausea And Vomiting Pantoprazole Sodium (Pantoprazole 40 Mg Tab) 40 mg PO DAILY [facility] Last Admin: 11/09/21 09:35 Dose: 40 mg Primidone (Primidone 50 Mg Tab) 50 mg PO BID [facility] Last Admin: 11/09/21 09:37 Dose: 50 mg Propranolol HCl (Propranolol 10 Mg Tab) 10 mg PO TID [facility] Sodium Chloride (Sodium Chloride 0.9% 10 Ml Flush Syringe) 10 ml IV BID [facility] Last Admin: 11/09/21 09:35 Dose: 10 ml Sodium Chloride (Sodium Chloride 0.9% 10 Ml Flush Syringe) 10 ml IV PRN PRN PRN Reason: LINE FLUSH Physical Examination Vital signs: Vital Signs Pulse BP Pulse Ox 92 H 178/74 98 11/08/21 17:17 11/08/21 17:17 11/08/21 17:17 Results - Laboratory Findings CBC and BMP: 11/09/21 04:00 11/09/21 04:00 PT/INR, D-dimer PT 13.6 Sec. (12.2-14.9) 11/08/21 19:42 INR 0.94 (0.87-1.13) 11/08/21 19:42 D-Dimer 825.58 ng/mlDDU (0-234) H 11/09/21 10:45 Abnormal lab findings: Abnormal Labs 11/08/21 11/08/21 11/08/21 19:42 19:42 19:42 RBC 3.02 L Hgb 7.6 L Hct 24.3 L MCH 25 L RDW 21.2 H Lymph % (Auto) 8.9 L Lymph # (Auto) 0.7 L Seg Neutrophils % 86.2 H D-Dimer Sodium 129 L Chloride 94.6 L Carbon Dioxide Creatinine 0.5 L Glucose 152 H POC Glucose Calcium 8.2 L Alkaline Phosphatase 151 H Troponin T 0.111 H* C-Reactive Protein NT-Pro-B Natriuret Pep Total Protein 5.4 L Albumin 3.0 L HDL Cholesterol 72 H 11/08/21 11/08/21 11/09/21 19:42 23:19 01:29 RBC Hgb Hct MCH RDW Lymph % (Auto) Lymph # (Auto) Seg Neutrophils % D-Dimer Sodium Chloride Carbon Dioxide Creatinine Glucose POC Glucose 146 H Calcium Alkaline Phosphatase Troponin T 0.089 H C-Reactive Protein NT-Pro-B Natriuret Pep 06884 H Total Protein Albumin HDL Cholesterol 11/09/21 11/09/21 11/09/21 04:00 04:00 07:28 RBC 3.17 L Hgb 7.8 L Hct 25.9 L MCH 25 L RDW 20.7 H Lymph % (Auto) 10.0 L Lymph # (Auto) 0.8 L Seg Neutrophils % 80.0 H D-Dimer Sodium 134 L Chloride Carbon Dioxide 21 L Creatinine 0.5 L Glucose 179 H POC Glucose 198 H Calcium 8.1 L Alkaline Phosphatase Troponin T C-Reactive Protein NT-Pro-B Natriuret Pep Total Protein Albumin HDL Cholesterol 11/09/21 11/09/21 10:45 10:45 RBC Hgb Hct MCH RDW Lymph % (Auto) Lymph # (Auto) Seg Neutrophils % D-Dimer 825.58 H Sodium Chloride Carbon Dioxide Creatinine Glucose POC Glucose Calcium Alkaline Phosphatase Troponin T C-Reactive Protein 3.40 H NT-Pro-B Natriuret Pep Total Protein Albumin HDL Cholesterol
[2021-11-09] MEDS: PROPRANOLOL 10 MG TAB PO SCH ×2 (13:00→18:15)
--- NOTE | 2021-11-09 13:38 | Electrocardiograph Report ---
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
--- NOTE | 2021-11-09 13:41 | Electrocardiograph Report ---
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
--- NOTE | 2021-11-09 13:47 | Consultation ---
History of Present Illness Consult date: 11/09/21 Requesting physician: AMANDA BROOKS History of present illness: Patient is a 71-year-old female with past medical history of coronary artery disease s/p CABG 2015, hypertension, COPD, peripheral vascular disease s/p left lower extremity AKA, GI ulcers, anemia, and current smoker who reported to the ED with a complaint of shortness of breath, nausea, and vomiting x1 to 2 weeks. Patient reports that over this timeframe she had worsening symptoms and could not breathe and came to the ED for further evaluation. She reports that her nausea, vomiting, abdominal pain has been ongoing for at least 2 weeks and has been sometimes relieved with Tums. She describes her abdominal pain as sharp tender and worse with palpation. She also reports that her shortness of breath started about a week ago and has been progressively worsening. She also reports lower extremity edema however denies orthopnea. In the ED patient was found to have O2 sat of 77 to 85% on room air, have elevated BNP, and elevated troponin. CXR showed bilateral pulmonary opacities. She denies chest pain, palpitations, diaphoresis, lightheadedness. Of note patient was recently discharged from [facility] on 10/16/2021 for similar complaints of shortness of breath. Patient was previously seen by our practice during admission in September however did not follow- up as an outpatient. Cardiology was consulted for CHF. Past History Past Medical History: acute CA, CAD, COPD, diabetes, GERD, hypertension, hyperl ipidemia, other (: Neck surgery, back surgery, stents placed in legs?, L leg amputation) Past Surgical History: CABG, Other (Open heart heart surgery in 2014) Social history: smoking (Current daily smoker) Family history: no significant family history Medications and Allergies Allergies Allergy/AdvReac Type Severity Reaction Status Date / Time acetaminophen [From Tylenol] Allergy CAUSES Verified 11/09/21 05:13 ISSUE WITH LIVER Antihistamines - Alkylamine Allergy Shortness Verified 11/09/21 05:13 of Breath codeine Allergy Headache Verified 11/09/21 05:13 Penicillins Allergy Angioedema Verified 11/09/21 05:13 Sulfa (Sulfonamide Allergy Rash Verified 11/09/21 05:13 Antibiotics) ANTIBIOTICS Allergy Severe EXTREME Uncoded 11/09/21 05:13 STOMACH PAIN Home Medications Medication Instructions Recorded Confirmed Last Taken Type DULoxetine [Cymbalta] 30 mg PO BID 10/06/21 10/06/21 Unknown History Omeprazole 40 mg PO DAILY 10/06/21 10/06/21 Unknown History Primidone [Mysoline] 50 mg PO BID 10/06/21 10/06/21 Unknown History glipiZIDE [Glucotrol] 10 mg PO DAILY 10/06/21 10/06/21 Unknown History Citalopram [Celexa] 20 mg PO DAILY 30 Days #30 tablet 10/09/21 Unknown Rx Furosemide [Lasix] 40 mg PO DAILY 30 Days #30 tab 10/09/21 Unknown Rx Gabapentin 900 mg PO BID 30 Days #180 capsule 10/09/21 Unknown Rx Metformin HCl [metFORMIN] 1,000 mg PO BID 30 Days #60 tab 10/09/21 Unknown Rx Rosuvastatin (Nf) [Crestor] 10 mg PO QHS 30 Days #60 tab 10/09/21 Unknown Rx levETIRAcetam [Keppra TAB] 500 mg PO BID 30 Days #60 tab 10/09/21 Unknown Rx propranoloL [Inderal] 10 mg PO TID 30 Days #90 tab 10/09/21 Unknown Rx Active Meds: Active Medications Atorvastatin Calcium (Atorvastatin 20 Mg Tab) 80 mg PO QHS [facility] Carvedilol (Carvedilol 3.125 Mg Tab) 3.125 mg PO BID [facility] Citalopram Hydrobromide (Citalopram 20 Mg Tab) 20 mg PO DAILY [facility] Last Admin: 11/09/21 09:35 Dose: 20 mg Clopidogrel Bisulfate (Clopidogrel 75 Mg Tab) 75 mg PO QDAY [facility] Dextrose (Dextrose 50% In Water (25gm) 50 Ml Syringe) 0 ml IV Q30MIN PRN; Protocol PRN Reason: Hypoglycemia Duloxetine HCl (Duloxetine 30 Mg Cap) 30 mg PO BID [facility] Last Admin: 11/09/21 09:35 Dose: 30 mg Enoxaparin Sodium (Enoxaparin 30 Mg/0.3 Ml Inj) 30 mg SUB-Q QDAY [facility]; Protocol Furosemide (Furosemide 40 Mg/4 Ml Inj) 40 mg IV BID@0600,1800 [facility] Last Admin: 11/09/21 05:04 Dose: Not Given Gabapentin (Gabapentin 300 Mg Cap) 900 mg PO BID [facility] Last Admin: 11/09/21 09:34 Dose: 900 mg NORepinephrine/NS 8 MG-250 ML (Norepinephrine/Ns 8 Mg-250 Ml (Double Conc)) 8 mg in 250 mls @ 3.75 mls/hr IV TITRATE [facility]; Protocol Last Titration: 11/09/21 07:55 Dose: 12 mcg/min, 22.5 mls/hr Insulin Human Lispro (Insulin Lispro 100 Unit/Ml) 0 unit SUB-Q ACHS [facility]; Protocol Last Admin: 11/09/21 12:10 Dose: Not Given Levetiracetam (Levetiracetam 500 Mg Tab) 500 mg PO BID [facility] Last Admin: 11/09/21 09:35 Dose: 500 mg Losartan Potassium (Losartan 25 Mg Tab) 25 mg PO QDAY [facility] Magnesium Hydroxide (Magnesium Hydroxide (Mom) Oral Liqd Udc) 30 ml PO Q4H PRN PRN Reason: Constipation Morphine Sulfate (Morphine 2 Mg/1 Ml Inj) 2 mg IV Q4H PRN PRN Reason: Pain, Moderate (4-6) Last Admin: 11/09/21 08:22 Dose: 2 mg Morphine Sulfate (Morphine 4 Mg/1 Ml Inj) 4 mg IV Q4H PRN PRN Reason: Pain , Severe (7-10) Ondansetron HCl (Ondansetron 4 Mg/2 Ml Inj) 4 mg IV Q8H PRN PRN Reason: Nausea And Vomiting Pantoprazole Sodium (Pantoprazole 40 Mg Tab) 40 mg PO DAILY [facility] Last Admin: 11/09/21 09:35 Dose: 40 mg Primidone (Primidone 50 Mg Tab) 50 mg PO BID [facility] Last Admin: 11/09/21 09:37 Dose: 50 mg Sodium Chloride (Sodium Chloride 0.9% 10 Ml Flush Syringe) 10 ml IV BID [facility] Last Admin: 11/09/21 09:35 Dose: 10 ml Sodium Chloride (Sodium Chloride 0.9% 10 Ml Flush Syringe) 10 ml IV PRN PRN PRN Reason: LINE FLUSH Review of Systems Constitutional: no weight loss, no weight gain, no fever Ears, nose, mouth and throat: no sinus pressure, no sinus pain Cardiovascular: edema, shortness of breath, dyspnea on exertion, leg edema Respiratory: shortness of breath, dyspnea on exertion Gastrointestinal: abdominal pain, nausea, vomiting, diarrhea Musculoskeletal: no neck stiffness, no neck pain Integumentary: no rash, no pruritis, no redness Neurological: no head injury, no transient paralysis Psychiatric: no anxiety, no memory loss Endocrine: no cold intolerance, no heat intolerance Physical Examination Vital Signs Pulse BP Pulse Ox 92 H 178/74 98 11/08/21 17:17 11/08/21 17:17 11/08/21 17:17 General appearance: no acute distress HEENT: Positive: Mucus Membranes Moist Neck: Positive: trachea midline Cardiac: Positive: Reg Rate and Rhythm, Systolic Murmur Lungs: Positive: Decreased Breath Sounds Neuro: Positive: Grossly Intact Abdomen: Positive: Tender Skin: Negative: Rash, Suspicious Lesions, Ulceration Extremities: Present: upper extr. pulses, edema Results 11/09/21 04:00 11/09/21 04:00 Cardiac Enzymes 11/08/21 11/09/21 Range/Units 19:42 10:45 AST 25 (5-40) units/L Lactate Dehydrogenase 99 (91-180) units/L Coagulation 11/08/21 Range/Units 19:42 PT 13.6 (12.2-14.9) Sec. INR 0.94 (0.87-1.13) APTT 27.3 (24.2-36.6) Sec. Lipids 11/08/21 Range/Units 19:42 Triglycerides 98 (2-149) mg/dL Cholesterol 161 (50-199) mg/dL HDL Cholesterol 72 H (40-59) mg/dL Cholesterol/HDL Ratio 2.23 % CBC 11/08/21 11/09/21 Range/Units 19:42 04:00 WBC 7.4 8.0 (4.5-11.0) K/mm3 RBC 3.02 L 3.17 L (3.65-5.03) M/mm3 Hgb 7.6 L 7.8 L (10.1-14.3) gm/dl Hct 24.3 L 25.9 L (30.3-42.9) % Plt Count 334 406 (140-440) K/mm3 Lymph # (Auto) 0.7 L 0.8 L (1.2-5.4) K/mm3 [place] # (Auto) 0.3 0.6 (0.0-0.8) K/mm3 Eos # (Auto) 0.1 0.1 (0.0-0.4) K/mm3 Baso # (Auto) 0.0 0.1 (0.0-0.1) K/mm3 Comprehensive Metabolic Panel 11/08/21 11/09/21 Range/Units 19:42 04:00 Sodium 129 L 134 L (137-145) mmol/L Potassium 4.5 4.3 (3.6-5.0) mmol/L Chloride 94.6 L 98.8 (98-107) mmol/L Carbon Dioxide 23 21 L (22-30) mmol/L BUN 11 10 (7-17) mg/dL Creatinine 0.5 L 0.5 L (0.6-1.2) mg/dL Glucose 152 H 179 H (65-100) mg/dL Calcium 8.2 L 8.1 L (8.4-10.2) mg/dL AST 25 (5-40) units/L ALT 15 (7-56) units/L Alkaline Phosphatase 151 H (35-129) units/L Total Protein 5.4 L (6.3-8.2) g/dL Albumin 3.0 L (3.9-5) g/dL - Imaging and Cardiology Echo: report reviewed Cardiac cath: report reviewed EKG: report reviewed, image reviewed EKG interpretations - Telemetry EKG Rhythm: Sinus Rhythm - EKG Sinus rhythms and dysrhythmias: sinus rhythm Repolarization changes or abnormalities: nonspecific abnormality, ST segment, and/or T wave Assessment and Plan Patient is a 71-year-old female with past medical history of coronary artery disease s/p CABG 2014, hypertension, COPD, peripheral vascular disease s/p left lower extremity AKA, GI ulcers, anemia, and current smoker who reported to the ED with a complaint of shortness of breath, nausea, and vomiting x1 to 2 weeks. Acute respiratory failure-pulmonology follow Acute on chronic HFrEF Abdominal pain/nausea/vomiting- CT abd pending NSTEMI suspect type II Ischemic cardiomyopathy Anemia COPD-pulmonology following CAD s/p CABG 2014 Hypertension Peripheral vascular disease s/p AKA History of GI ulcers Tobacco abuse Elevated D-dimer- CTA chest pending Echo 10/05/2021-EF 35 to 40%. Regional wall motion abnormalities. Right ventricle is normal in size with normal ventricle ventricular systolic function. Severe mitral regurgitation. Mild tricuspid regurgitation Cardiac cath 10/15/2021- 2-vessel CAD with diffusely diseased LAD and left circumflex Widely patent REGALADO to mid LAD and SVG toOMbypass graftsModerately reduced LV systolic function with ejection fraction 30 to 35% and associated moderate, hypokinesis Mildly elevated LVEDP Normal systemic arterial pressures. Recommend aggressive medical therapy Plan: EKG shows sinus rhythm 81 nonspecific T abnormality. No acute ischemic changes. Patient denies complaint current chest pain Troponin noted to be elevated and downtrending. Suspect troponin elevation in setting of acute HFrEF Patient no longer on pressors blood pressures appear to be stabilized Per review of records patient was previously discharged on aspirin, atorvastatin 80 mg p.o. nightly, Coreg 3.125 mg p.o. twice daily, losartan 25 mg p.o. daily and Plavix Will stop propanolol resume outpatient medication Patient appears volume overloaded with elevated BNP, lower extremity edema, and CXR with bilateral opacities. Agree with diuresis with Lasix 40 mg IV twice daily Strict I&O's, daily weights, and repeat BMP in the a.m. Patient seen in conjunction with Dr. Waterman who agrees with this plan of care - Patient Problems (1) Ischemic cardiomyopathy Current Visit: Yes Status: Acute (2) Acute on chronic HFrEF (heart failure with reduced ejection fraction) Current Visit: Yes Status: Acute (3) Acute respiratory failure with hypoxia Current Visit: Yes Status: Acute (4) Anemia Current Visit: No Status: Acute (5) Elevated troponin Current Visit: No Status: Acute (6) Pulmonary edema Current Visit: No Status: Acute (7) CAD (coronary artery disease) Current Visit: No Status: Chronic Qualifiers: Coronary Disease-Associated Artery/Lesion type: ak chin artery (8) COPD (chronic obstructive pulmonary disease) Current Visit: No Status: Chronic (9) Diabetes mellitus Current Visit: No Status: Chronic (10) Hx of CABG Current Visit: No Status: Chronic (11) Hypertension Current Visit: No Status: Chronic Qualifiers: Hypertension type: primary hypertension Qualified Code(s): I10 - Essential (primary) hypertension
--- NOTE | 2021-11-09 17:51 | Cat Scan Report ---
CT ABDOMEN AND PELVIS WITH CONTRAST INDICATION / CLINICAL INFORMATION: Abdominal pain, Flank pain. TECHNIQUE: Axial CT images were obtained through the abdomen and pelvis after IV contrast. All CT sc ans at this location are performed using CT dose reduction for ALARA by means of automated exposure c ontrol. COMPARISON: None available. FINDINGS: LOWER CHEST: Moderate-sized bilateral pleural effusions with passive atelectasis of the lung bases. LIVER: No significant abnormality. GALLBLADDER: No significant abnormality. BILE DUCTS: No significant abnormality. PANCREAS: No significant abnormality. SPLEEN: No significant abnormality. ADRENALS: No significant abnormality. RIGHT KIDNEY / URETER: No significant abnormality. LEFT KIDNEY / URETER: No significant abnormality. STOMACH / SMALL BOWEL: No significant abnormality. COLON: No significant abnormality. APPENDIX: No significant abnormality. PERITONEUM: No free fluid. No free air. No fluid collection. LYMPH NODES: No significant adenopathy. AORTA / ARTERIES: Mild atherosclerotic calcification without acute abnormality. IVC / VEINS: No significant abnormality. URINARY BLADDER: Contracted around a Sanchez catheter. REPRODUCTIVE ORGANS: No significant abnormality. ADDITIONAL FINDINGS: Left common femoral vein is dilated with possible intraluminal thrombus. Right f emoral vein central line. SKELETAL SYSTEM: Left total hip arthroplasty. No acute skeletal abnormality. IMPRESSION: 1. No acute process in the abdomen or pelvis. 2. Moderate-sized bilateral pleural effusions. 3. Possible left common femoral vein DVT. Doppler ultrasound of the lower extremities is recommended. Signer Name: Amiarh Pulido MD Signed: 11/09/2021 5:47 PM Workstation Name: [id number]
--- NOTE | 2021-11-09 17:53 | Cat Scan Report ---
CTA CHEST WITH CONTRAST INDICATION / CLINICAL INFORMATION: Chest pain, shortness of breath. TECHNIQUE: Axial CT images were obtained through the chest after injection of IV contrast. 3 plane DC P and/or 3D reconstructions were produced. All CT scans at this location are performed using CT dose reduction for ALARA by means of automated exposure control. COMPARISON: CT 10/05/2021 FINDINGS: PULMONARY EMBOLUS: As seen on axial series 2 image 47, there is a focal nonocclusive PTE within the l ingular pulmonary artery. There is a second nonocclusive PTE within a segmental left lower lobe pulmo nary artery on image 65. THORACIC AORTA: Moderate atherosclerotic calcification is again noted. Advanced atherosclerotic calci fication is again noted at the proximal cervical vessels. There is patency is difficult to assess giv en contrast timing for pulmonary artery evaluation. HEART: Cardiomegaly is again noted. There is reflux of contrast from the right atrium into the hepati c veins. CORONARY ARTERY CALCIFICATION: Not evaluable -- CABG. MEDIASTINUM / JANIS: No significant abnormality. PLEURA: Small predominantly subpulmonic bilateral effusions. Left pleural effusion tracks along the m inor fissure similar to the prior. No pneumothorax. LUNGS: Increased interstitial markings with septal thickening is again noted similar to the prior. In addition, there are somewhat patchy predominantly peripheral airspace opacities. ADDITIONAL FINDINGS: None. UPPER ABDOMEN: No acute findings. SKELETAL STRUCTURES: No significant osseous abnormality. IMPRESSION: 1. There are 2 small nonocclusive pulmonary thromboemboli within the left lung, as above. These are n ot calyceal the prior exam. No central or occlusive P T E is seen. 2. Pulmonary and pleural findings as above are similar to the prior exam from 10/05/2021. Given the ca rdiomegaly, this is most likely due to heart failure with pulmonary edema. It would be difficult to e xclude some degree of superimposed pneumonia, particularly in the right lung. 3. Additional findings as above, similar to the prior. Signer Name: David Mcfarland MD Signed: 11/09/2021 5:48 PM Workstation Name: [id number]
[2021-11-09] MEDS: carvediloL 3.125 MG TAB PO SCH (22:08)
--- NOTE | 2021-11-10 01:26 | Consultation ---
DATE OF CONSULTATION: 11/09/2021 PULMONARY CRITICAL CARE CONSULTATION NOTE CONSULTING PHYSICIAN: ____. REASON FOR CONSULTATION: Hypotension, pulmonary edema. CHIEF COMPLAINT AND HISTORY OF PRESENT ILLNESS: As follows: The patient is a now 71-year-old female with a past medical history significant amongst other things for a diagnosis of coronary artery disease status post coronary artery bypass grafting in 2014, but also history of chronic obstructive pulmonary disease, who denies ever been on home oxygen, but admits to about a 74-[id number]-[id number] tobacco smoking history, came into the Emergency Room yesterday complaining of shortness of breath, increasing in the preceding 3 weeks. She denied any chest pain. She denied fevers or chills. She did say she was having some vomiting at home and nausea as well as abdominal pain. She denied any cough or hemoptysis. She denied fevers or chills. She denied any sick contacts. In the Emergency Room, she was hypoxemic, O2 sats as low as 77. She was also initially hypotensive with systolic blood pressures in the 70s. She was placed on a nonrebreather mask and then transitioned to bilevel positive airway pressure ventilation therapy and started on dopamine drip at that time to bring up her blood pressure. We are asked to assist with management. When I stopped by to see her, she was resting in bed. She remained on supplemental oxygen at about 5 liters flow. She denied nausea, vomiting. This morning, the abdominal pain was a little bit better. She denied palpitations. She denied any new-onset leg pain or swelling, either unilaterally or bilaterally or any suggestion of a deep venous thrombosis. This really is as much of the history of this presentation as I have. PAST MEDICAL HISTORY: Coronary artery disease, chronic obstructive lung disease, diabetes, hypertension, history of gastroesophageal reflux disease, hyperlipidemia. PAST SURGICAL HISTORY: She has had a left [id number] amputation. She has had back surgery and neck surgery. She has also had coronary artery bypass grafting in 2015. MEDICATIONS: She was on at the time I stopped by to see according to the medication physician record included the following: Lipitor 20 mg p.o. at bedtime, Celexa 20 mg p.o. daily, Cymbalta 30 mg p.o. b.i.d., Lasix 40 mg IV b.i.d., Neurontin 900 mg p.o. b.i.d., insulin via sliding scale, Keppra 500 mg p.o. b.i.d., morphine sulfate 2 mg IV q. 4 hours p.r.n. moderate pain and 4 mg IV q. 4 hours p.r.n. severe pain, Levophed drip had been on at 2 mcg per minute, Zofran 4 mg IV q. 8 hours p.r.n. nausea and vomiting, Protonix 40 mg p.o. daily, primidone 50 mg p.o. b.i.d., propranolol 10 mg p.o. t.i.d. ALLERGIES: ANTIHISTAMINES AND CODEINE, nature of this allergy is unknown. DIET: Thin lady, denies acute weight loss or gain in the preceding few weeks to months. FAMILY AND SOCIAL HISTORY: Lives in the community. Denies alcohol or illicit drug use or abuse. Has a 10+ pack year tobacco smoking history states that she continued to smoke up until 3 days ago. FAMILY HISTORY: Otherwise, noncontributory. REVIEW OF SYSTEMS: She denies loss of consciousness. No new onset seizures. No new onset focal weakness. Denies gross hematochezia or melena. Denies gross hematuria or dysuria. No hematemesis, no hemoptysis. She did have some emesis. Denies heat or cold intolerance. Denies polydipsia, polyuria. Complete 13-system review of system was obtained. Pertinent positives and/or negatives as in body of history above, otherwise they are noncontributory. PHYSICAL EXAMINATION: VITAL SIGNS: At presentation in the Emergency Room and since really she has been afebrile, temperature was 98.3 degrees Fahrenheit on presentation, pulse of 92, respiratory rate of about 31 and blood pressure as low as 78/48 in the Emergency Room as well as O2 sats 98% at the time I believe on 100% FiO2. GENERAL: She is an elderly looking female. Normocephalic, atraumatic. Talking to me in full sentences, but with mildly increased respiratory effort at rest. HEAD, EYES, EARS, NOSE AND THROAT: Anicteric. No conjunctival erythema. Oropharynx was moist. NECK: No gross jugular venous distention, no thyromegaly. Grossly, there were no palpable lymph nodes in the supraclavicular or submandibular lymph node chains. LUNGS: Auscultation of both lung pérez significant for diminished bilateral breath sounds, bibasilar inspiratory rales, no active wheezing. HEART: Sounds 1 and 2 are heard at the time of my evaluation, regular rate and rhythm without overt rubs or murmurs. ABDOMEN: Soft, flat, bowel sounds are positive, nontender, no palpable hepatosplenomegaly. EXTREMITIES: Without overt digital clubbing or cyanosis. No pedal edema. She has a left AKA, [id number] amputation. Pedal pulses are otherwise 2+ in the right lower extremity. NEUROLOGIC: Pupils are equal, round, about 4 mm, reactive to light. She is legally blind in the right eye. Extraocular muscle movements are intact. She moves all 4 extremities spontaneously. SKIN: Normal turgor in the areas I examined including the stump of the amputation without overt cellulitis or rash. Please see the wound care nurses' notes for full description of her skin. PSYCHIATRIC: Mood was normal. Affect was appropriate. She seemed to have intact judgment and insight. LABORATORY DATA: From my review are as follows: Admission white cell count 7400, hemoglobin 7.6, hematocrit 24.3, platelet count 334. No manual differential. INR within normal limits. D-dimer is up at 826. Serum sodium 129, potassium 4.5, chloride 95, bicarbonate 23, BUN 11, creatinine 0.5, glucose was 152. Lactic acid level within normal limits. Liver function test within normal limits. Troponin was up at 0.111. BNP was elevated at 48,858. Albumin was low at 3.0, otherwise liver function test within normal limits. LDL cholesterol was 64. Urinalysis showed small leukocyte esterase; however, less than 1 white cell per high power field, negative for nitrites. Two sets of blood cultures are no growth to date. Chest x-ray has been reviewed. It shows gross cardiomegaly, bilateral pleural effusions, moderate to severe volume overload. Median sternotomy wires are in place. No gross pneumothorax, no gross bony fracture. Compared to an x-ray from 10/04/2021, I believe this finding is marginally increased. ASSESSMENT: 1. Acute hypoxemic respiratory failure, now on supplemental oxygen. 2. Acute exacerbation of congestive heart failure. 3. Hypotension at presentation. 4. Non-ST elevation myocardial infarction, probably demand ischemia. 5. Nausea and vomiting. 6. Abdominal pain, improved. 7. Anemia that is normocytic. 8. Hyponatremia. 9. Adult failure to thrive. PLAN: This ____ looks like an acute congestive heart failure exacerbation. I do agree with continued diuresis while monitoring electrolytes as well as inputs and outputs. She was negative 1 liter since admission. Oxygen will be weaned to keep sats greater than or equal to about 90%. Aspiration precautions will be maintained. I will offer a noninvasive ventilation therapy scheduled bedtime with p.r.n. daytime use, both for its alveolar recruitment as well as its salutary effects on cardiovascular hemodynamics. Vasopressors will be weaned to keep mean arterial pressures greater than or equal to about 65 mmHg. I will hold on empiric antibiotic therapy. I will get a CRP level to help make clinical decisions. A Cardiology consultation has been placed. She states she does not have a thread laster or any doctor she follows. I told her she will see Cardiology and Pulmonary during this admission and will be given outpatient followup. Tobacco abstinence has been strongly counseled. She is appropriately on GI prophylaxis with Protonix. I will put her on DVT prophylaxis with Lovenox. Flu and pneumonia vaccination will be addressed per protocol. Thank you very much for the consult. We will follow along and make further recommendations as picture progresses/becomes clearer. She is critically ill on life-sustaining interventions including the vasopressor support, at very high risk of from cardiopulmonary system decompensation. At this time, I spent about 35-40 minutes of critical care time without overlap and excluding any procedural time that may be necessary. TID: [id number] RECEIPT: [id number] SRINIVASA/SHWETA
[2021-11-10 04:56] LABS: Hematocrit 22.5 % (30.3-42.9); Hemoglobin 6.8 gm/dl (10.1-14.3); Mean Corpuscular HGB Conc 31 % (30-34); Mean Corpuscular Volume 81 fl (79-97); Platelet Count 288 K/mm3 (140-440); Red Blood Count 2.79 M/mm3 (3.65-5.03)
[2021-11-10 04:57] LABS: Red Cell Distribution Width 20.8 % (13.2-15.2)
[2021-11-10 05:37] LABS: Alanine Aminotransferase 8 units/L (7-56); Albumin 2.4 g/dL (3.9-5); BUN/Creatinine Ratio 18; Bilirubin,Direct < 0.2 mg/dL (0-0.2); Blood Urea Nitrogen 11 mg/dL (7-17); Calcium 8.2 mg/dL (8.4-10.2); Hemolysis Index 4
[2021-11-10] MEDS: FUROSEMIDE 40 MG/4 ML INJ IV SCH ×2 (05:58→19:36)
[2021-11-10 06:29] LABS: Basophils # (Auto) 0.1 K/mm3 (0.0-0.1); Basophils % (Auto) 1.4 % (0.0-1.8); Eosinophils # (Auto) 0.2 K/mm3 (0.0-0.4); Eosinophils % (Auto) 4.1 % (0.0-4.3); Hematocrit 22.4 % (30.3-42.9); Hemoglobin 7.1 gm/dl (10.1-14.3); Lymphocytes % (Auto) 16.1 % (13.4-35.0); Mean Corpuscular HGB Conc 32 % (30-34); Mean Corpuscular Volume 80 fl (79-97); Monocytes # (Auto) 0.6 K/mm3 (0.0-0.8); Monocytes % (Auto) 9.9 % (0.0-7.3); Platelet Count 276 K/mm3 (140-440)
[2021-11-10 06:36] LABS: Red Cell Distribution Width 20.5 % (13.2-15.2)
[2021-11-10] MEDS ORDERED: ENOXAPARIN 40 MG/0.4 ML INJ SUB-Q SCH (10:00)
[2021-11-10] MEDS ORDERED: MAGNESIUM SULFATE 4 GM/100 ML BAG IV SCH (10:00)
--- NOTE | 2021-11-10 10:05 | Consultation ---
History of Present Illness - Reason for Consult Consult date: 11/10/21 PE - History of Present Illness Patient with a history of small subsegmental nonocclusive PE who initially presented with worsening shortness of breath consistent with CHF exacerbation with pulmonary edema and cardiac enlargement. She underwent a CTA of the chest which demonstrated small PE. Patient not currently complaining of any chest pain. Resting comfortably and breathing room air. Patient with a history of GI ulcers and likely chronic anemia with current prophylactic anticoagulation with Lovenox SQ twice daily. Past History Past Medical History: acute DE, CAD, COPD, diabetes, GERD, hypertension, hyperlipidemia, other (: Neck surgery, back surgery, stents placed in legs?, L leg amputation) Past Surgical History: CABG, Other (Open heart heart surgery in 2015) Social history: smoking (Current daily smoker) Family history: no significant family history Medications and Allergies Allergies Allergy/AdvReac Type Severity Reaction Status Date / Time acetaminophen [From Tylenol] Allergy CAUSES Verified 11/09/21 05:13 ISSUE WITH LIVER Antihistamines - Alkylamine Allergy Shortness Verified 11/09/21 05:13 of Breath codeine Allergy Headache Verified 11/09/21 05:13 Penicillins Allergy Angioedema Verified 11/09/21 05:13 Sulfa (Sulfonamide Allergy Rash Verified 11/09/21 05:13 Antibiotics) ANTIBIOTICS Allergy Severe EXTREME Uncoded 11/09/21 05:13 STOMACH PAIN Home Medications Medication Instructions Recorded Confirmed Last Taken Type DULoxetine [Cymbalta] 30 mg PO BID 10/06/21 10/06/21 Unknown History Omeprazole 40 mg PO DAILY 10/06/21 10/06/21 Unknown History Primidone [Mysoline] 50 mg PO BID 10/06/21 10/06/21 Unknown History glipiZIDE [Glucotrol] 10 mg PO DAILY 10/06/21 10/06/21 Unknown History Citalopram [Celexa] 20 mg PO DAILY 30 Days #30 tablet 10/09/21 Unknown Rx Furosemide [Lasix] 40 mg PO DAILY 30 Days #30 tab 10/09/21 Unknown Rx Gabapentin 900 mg PO BID 30 Days #180 capsule 10/09/21 Unknown Rx Metformin HCl [metFORMIN] 1,000 mg PO BID 30 Days #60 tab 10/09/21 Unknown Rx Rosuvastatin (Nf) [Crestor] 10 mg PO QHS 30 Days #60 tab 10/09/21 Unknown Rx levETIRAcetam [Keppra TAB] 500 mg PO BID 30 Days #60 tab 10/09/21 Unknown Rx propranoloL [Inderal] 10 mg PO TID 30 Days #90 tab 10/09/21 Unknown Rx Active Meds: Active Medications Atorvastatin Calcium (Atorvastatin 40 Mg Tab) 80 mg PO QHS [facility] Last Admin: 11/09/21 22:09 Dose: 80 mg Carvedilol (Carvedilol 3.125 Mg Tab) 3.125 mg PO BID [facility] Last Admin: 11/09/21 22:08 Dose: 3.125 mg Citalopram Hydrobromide (Citalopram 20 Mg Tab) 20 mg PO DAILY [facility] Last Admin: 11/09/21 09:35 Dose: 20 mg Clopidogrel Bisulfate (Clopidogrel 75 Mg Tab) 75 mg PO QDAY [facility] Dextrose (Dextrose 50% In Water (25gm) 50 Ml Syringe) 0 ml IV Q30MIN PRN; Protocol PRN Reason: Hypoglycemia Duloxetine HCl (Duloxetine 30 Mg Cap) 30 mg PO BID [facility] Last Admin: 11/09/21 22:08 Dose: 30 mg Enoxaparin Sodium (Enoxaparin 40 Mg/0.4 Ml Inj) 40 mg SUB-Q QDAY@1000 [facility]; Protocol Furosemide (Furosemide 40 Mg/4 Ml Inj) 40 mg IV BID@0600,1800 [facility] Last Admin: 11/10/21 05:58 Dose: 40 mg Gabapentin (Gabapentin 300 Mg Cap) 900 mg PO BID [facility] Last Admin: 11/09/21 22:08 Dose: 900 mg Magnesium Sulfate (Magnesium Sulfate 4gm/100ml) 4 gm in 100 mls @ 25 mls/hr IV ONCE@1000 [facility] Stop: 11/10/21 14:00 Insulin Human Lispro (Insulin Lispro 100 Unit/Ml) 0 unit SUB-Q ACHS [facility]; Protocol Last Admin: 11/09/21 22:08 Dose: Not Given Levetiracetam (Levetiracetam 500 Mg Tab) 500 mg PO BID [facility] Last Admin: 11/09/21 22:09 Dose: 500 mg Losartan Potassium (Losartan 25 Mg Tab) 25 mg PO QDAY [facility] Magnesium Hydroxide (Magnesium Hydroxide (Mom) Oral Liqd Udc) 30 ml PO Q4H PRN PRN Reason: Constipation Morphine Sulfate (Morphine 2 Mg/1 Ml Inj) 2 mg IV Q4H PRN PRN Reason: Pain, Moderate (4-6) Last Admin: 11/09/21 08:22 Dose: 2 mg Ondansetron HCl (Ondansetron 4 Mg/2 Ml Inj) 4 mg IV Q8H PRN PRN Reason: Nausea And Vomiting Pantoprazole Sodium (Pantoprazole 40 Mg Tab) 40 mg PO DAILY [facility] Last Admin: 11/09/21 09:35 Dose: 40 mg Primidone (Primidone 50 Mg Tab) 50 mg PO BID [facility] Last Admin: 11/09/21 22:09 Dose: 50 mg Sodium Chloride (Sodium Chloride 0.9% 10 Ml Flush Syringe) 10 ml IV BID [facility] Last Admin: 11/09/21 22:09 Dose: 10 ml Sodium Chloride (Sodium Chloride 0.9% 10 Ml Flush Syringe) 10 ml IV PRN PRN PRN Reason: LINE FLUSH Review of Systems All systems: negative Exam - Constitutional Vitals: Temp Pulse Resp BP Pulse Ox 97.4 F L 81 17 139/63 97 11/10/21 03:18 11/10/21 06:00 11/10/21 06:00 11/10/21 06:00 11/10/21 06:00 General appearance: Present: no acute distress - EENT ENT: hearing intact - Neck Neck: Present: supple, normal ROM - Respiratory Respiratory effort: normal - Extremities Extremities: abnormal (Left AKA well-healed, right foot warm and well-perfused) - Abdominal General gastrointestinal: Present: deferred - Rectal Rectal Exam: deferred - Psychiatric Psychiatric: appropriate mood/affect, cooperative Results - Labs CBC & Chem 7: 11/10/21 06:00 11/10/21 04:12 Labs: Abnormal lab results 11/09/21 11/09/21 11/09/21 Range/Units 10:45 10:45 11:34 RBC (3.65-5.03) M/mm3 Hgb (10.1-14.3) gm/dl Hct (30.3-42.9) % MCH (28-32) pg RDW (13.2-15.2) % Quay % (Auto) (0.0-7.3) % Lymph # (Auto) (1.2-5.4) K/mm3 D-Dimer 825.58 H (0-234) ng/mlDDU Sodium (137-145) mmol/L Glucose (65-100) mg/dL POC Glucose 133 H (70-105) mg/dL Calcium (8.4-10.2) mg/dL Magnesium (1.7-2.3) mg/dL C-Reactive Protein 3.40 H (0.00-1.30) mg/dL Total Protein (6.3-8.2) g/dL Albumin (3.9-5) g/dL 11/09/21 11/09/21 11/10/21 Range/Units 17:52 21:31 00:13 RBC (3.65-5.03) M/mm3 Hgb (10.1-14.3) gm/dl Hct (30.3-42.9) % MCH (28-32) pg RDW (13.2-15.2) % Quay % (Auto) (0.0-7.3) % Lymph # (Auto) (1.2-5.4) K/mm3 D-Dimer (0-234) ng/mlDDU Sodium (137-145) mmol/L Glucose (65-100) mg/dL POC Glucose 158 H 62 L 160 H (70-105) mg/dL Calcium (8.4-10.2) mg/dL Magnesium (1.7-2.3) mg/dL C-Reactive Protein (0.00-1.30) mg/dL Total Protein (6.3-8.2) g/dL Albumin (3.9-5) g/dL 11/10/21 11/10/21 11/10/21 Range/Units 04:00 04:12 06:00 RBC 2.79 L 2.80 L (3.65-5.03) M/mm3 Hgb 6.8 L 7.1 L (10.1-14.3) gm/dl Hct 22.5 L 22.4 L (30.3-42.9) % MCH 25 L 26 L (28-32) pg RDW 20.8 H 20.5 H (13.2-15.2) % Quay % (Auto) 9.9 H (0.0-7.3) % Lymph # (Auto) 1.0 L (1.2-5.4) K/mm3 D-Dimer (0-234) ng/mlDDU Sodium 133 L (137-145) mmol/L Glucose 138 H (65-100) mg/dL POC Glucose (70-105) mg/dL Calcium 8.2 L (8.4-10.2) mg/dL Magnesium 1.40 L (1.7-2.3) mg/dL C-Reactive Protein (0.00-1.30) mg/dL Total Protein 4.6 L (6.3-8.2) g/dL Albumin 2.4 L (3.9-5) g/dL Assessment and Plan Will obtain a venous Doppler lower extremities to determine if patient has a DVT. Patient awake alert oriented and appears to be able to participate and her baseline activities of daily living now that she has been significantly diuresed. We will hold off on placement of IVC filter pending patient's clinical condition and ultrasound studies.
[2021-11-10] MEDS: INSULIN LISPRO 100 UNIT/ML SUB-Q SCH ×4 (10:50→23:23)
[2021-11-10] MEDS: carvediloL 3.125 MG TAB PO SCH ×2 (10:50→22:56)
[2021-11-10] MEDS: CITALOPRAM 20 MG TAB PO SCH (10:50)
[2021-11-10] MEDS: GABAPENTIN 300 MG CAP PO SCH ×2 (10:50→22:56)
[2021-11-10] MEDS: PANTOPRAZOLE 40 MG TAB PO SCH (10:50)
[2021-11-10] MEDS: levETIRAcetam 500 MG TAB PO SCH ×2 (10:51→22:56)
[2021-11-10] MEDS: LOSARTAN 25 MG TAB PO SCH (10:51)
[2021-11-10] MEDS: DULoxetine 30 MG CAP PO SCH ×2 (10:51→22:56)
[2021-11-10] MEDS: CLOPIDOGREL 75 MG TAB PO SCH (10:51)
--- NOTE | 2021-11-10 11:20 | Progress Note ---
Assessment and Plan Assessment and plan: This is a 71-year-old male with known past medical history CAD s/p CABG in 2015, HTN, COPD, current tobacco dependence, PVD s/p LLE AKA, GI ulcers, and anemia admitted for hypotension, acute of chronic CHF exacerbation, and acute hypoxic respiratory failure Hospital Course to Date: 11/09: Off Levophed gtt this am, VSS, on 5L NC. Patient still complaining of chest pressure with abdominal and flank pain. Will get CTA chest/abd/pelvis for further eval. Continue IV lasix BID for now, cardiololgy is following. D/w CCM is patient remains off pressors this afternoon okay to transfer patient to [facility]. 11/10: CTA chest/Abd with small nonobstructive PTE and possible left common fem oral vein DVT. Patient is stable on 4L NC, no respiratory distress noted. Remains on IV Lasix BID. Patient current on subQ Lovenox and Plavix. H&H dropped this am, no s/s of any active bleeding. Patient does have a history of GI ulcer and chronic anemia, patient reported that she stopped taking her Plavix because "she was tired of it". Check BLE doppler to r/o DVT. Will hold AC for now and continue PO Plavix. Vascular Surgery consulted for possible IVC filter eval. Will also check a stool occult, transfuse for H&H less than 7. Assessment and Plan #Acute of Chronic CHF exacerbation with reduced EF of 35 to 40% on 10/05/2021 #Elevated Troponin #H/o Hypertension #CAD s/p CABG - Presented with SOB, orthopnea, elevated BNP, and LE edema - Patient was also noted to be hypotensive in the ED and Levophed was initiated - Off levo this am, remains in SR, VSS - Troponin positive X2, downtrending. possibly secondary to demand ischemia - EKG shows SR with no significant ST changes - Echo from 09/2021 reviewed EF 35 to 40% - On IV Lasix BID - Cardiology consulted, appreciate recommendations - Resume home meds - Continue blood pressure monitor per protocol - Maintain MAP above 65 and SBP less than 160 - VTE phrop on hold due to anemia - Strick I&Os and daily weight - [facility] consulted, appreciate recommendations #Acute Hypoxic Respiratory Failure #H/o COPD, current smoker - Probably secondary to above - Desated in the 70s on RA, c/o SOB and orthopnea - Chest x-ray significant for bilateral pulmonary opacities and pleural effusi on. This is concerning for congestive heart failure - Currently on 4L NC - Continue IV lasix BID - Continue O2 supplementation as tolerated - Continue SPO2 monitoring for SPO2 goal above 92% - [facility] consulted, appreciate recommendations #Pulmonary Thromboemboli (PTE) #Possible Left common femoral DVT - Noted on CTA Chest/abd, X2 small nonocclusive PTE and possible left common femoral DVT - BLE doppler ordered to r/o DVT - On VTE proh and Plavix, drop in H&H this am. No s/s of any active bleeding - Will hold AC for now, continue PO Plavix - Vascular Surgery consulted for possible IVC filter eval #Abdominal Pain-resolved #Diarrhea - Unknown Etiology - Patient reported chest pressure with abdominal pain, flank pain, and diarrhea - Cardiac w/up as described above - No diarrhea reported sinced admit - CTA chest/abd/pelvis reviewed as describe above, otherwise no acute process in the abdomen or pelvis - Alkaline phosp normalized, will continue to trend LFTs #Anemia of Chronic Disease #History of GI Ulcers - Drop in H&H this am - No s/s of any active bleeding, VSS - VTE proph held - Continue to trend CBC - Transfuse for Hgb less than 7 #Tobacco Dependence - Patient reported a 45 years smoking history. She stated she has not smoked for 5 days - Smoking cessation education provided. Patient verbalized understanding and agreed with the info provided - Denied any urges at this time. Nicotine patch if needed #Peripheral Vascular Disease(PVD) s/p LLE AKA - Chronic - Home Plavix and gabapentin resumed #Hyperglycemia - 09/2021 Hgb A1c 6.0 - BG check and SSI initiated ACHS - Avoid Hypoglycemia - While critically ill target blood glucose of 140-180 #GI/DVT Prophylaxis - PPI- Protonix - SCDs to bilateral lower extremities while in bed #Advance Care Planning - Disease education data, care plan, diagnoses, and prognosis were discussed with the patient at the bedside. Patient is a FULL code. Patient acknowledged understanding and agreed with current care plan. The high probability of a clinically significant, sudden or life threatening deterioration of the [multiple] system(s) required my full and direct attention, intervention and personal management. The aggregate critical care time was [60] minutes. This time is in addition to time spent performing reported procedures but includes the following: [x] Data Review and interpretation [x] Patient assessment and monitoring of vital signs [x] Documentation [x] Medication orders and management Disposition Plan: IMCU Total Time Spent with Patient (Minutes): 60 History Interval history: Patient seen and examined at the bedside. Remains stable, on 4L NC this am, no s/s of any respiratopry distress noted. Patient denied any pain nor any discomfort at this time. Remains in SR on the monitor, VSS. Hospitalist Physical - Physical exam Narrative exam: General appearance: Present: no acute distress, well-nourished, obese - EENT Eyes: Present: PERRL, EOM intact ENT: hearing intact - Neck Neck: Present: normal ROM - Respiratory Respiratory effort: normal Respiratory: bilateral: diminished, Other(bibasilar fine crackles) - Cardiovascular Rhythm: regular Heart Sounds: Present: S1 & S2 - Extremities Extremities: no ischemia, pulses intact, pulses symmetrical, abnormal (Left AKA) Extremity abnormal: edema - Peripheral Assessment Right Lower Extremity Edema Type: NonPitting Edema Degree: 1+ Capillary Refill: < 3 seconds Skin Temperature: Warm Generalized Edema Type: Non-pitting Edema Degree: 1+ Capillary Refill: < 3 seconds Skin Temperature: Warm Peripheral Pulses: within normal limits - Abdominal General gastrointestinal: soft, non-distended, normal bowel sounds - Integumentary Integumentary: Present: warm, dry - Psychiatric Psychiatric: appropriate mood/affect, cooperative - Neurologic Neurologic: CNII-XII intact, moves all extremities - Allied Health Allied health notes reviewed: nursing, case management - Constitutional Vitals: Temp Pulse Resp BP Pulse Ox 97.4 F L 87 17 134/92 97 11/10/21 03:18 11/10/21 11:00 11/10/21 11:00 11/10/21 11:00 11/10/21 11:00 HEART Score - HEART Score Troponin: Troponin T 0.089 ng/mL (0.00-0.029) H 11/08/21 23:19 Results - Labs CBC & Chem 7: 11/10/21 06:00 11/10/21 04:12 Labs: Laboratory Last Values WBC 5.9 K/mm3 (4.5-11.0) 11/10/21 06:00 RBC 2.80 M/mm3 (3.65-5.03) L 11/10/21 06:00 Hgb 7.1 gm/dl (10.1-14.3) L 11/10/21 06:00 Hct 22.4 % (30.3-42.9) L 11/10/21 06:00 MCV 80 fl (79-97) 11/10/21 06:00 MCH 26 pg (28-32) L 11/10/21 06:00 MCHC 32 % (30-34) 11/10/21 06:00 RDW 20.5 % (13.2-15.2) H 11/10/21 06:00 Plt Count 276 K/mm3 (140-440) 11/10/21 06:00 Lymph % (Auto) 16.1 % (13.4-35.0) 11/10/21 06:00 [place] % (Auto) 9.9 % (0.0-7.3) H 11/10/21 06:00 Eos % (Auto) 4.1 % (0.0-4.3) 11/10/21 06:00 Baso % (Auto) 1.4 % (0.0-1.8) 11/10/21 06:00 Lymph # (Auto) 1.0 K/mm3 (1.2-5.4) L 11/10/21 06:00 [place] # (Auto) 0.6 K/mm3 (0.0-0.8) 11/10/21 06:00 Eos # (Auto) 0.2 K/mm3 (0.0-0.4) 11/10/21 06:00 Baso # (Auto) 0.1 K/mm3 (0.0-0.1) 11/10/21 06:00 Seg Neutrophils % 68.5 % (40.0-70.0) 11/10/21 06:00 Seg Neutrophils # 4.1 K/mm3 (1.8-7.7) 11/10/21 06:00 PT 13.6 Sec. (12.2-14.9) 11/08/21 19:42 INR 0.94 (0.87-1.13) 11/08/21 19:42 APTT 27.3 Sec. (24.2-36.6) 11/08/21 19:42 D-Dimer 825.58 ng/mlDDU (0-234) H 11/09/21 10:45 Sodium 133 mmol/L (137-145) L 11/10/21 04:12 Potassium 4.2 mmol/L (3.6-5.0) 11/10/21 04:12 Chloride 99.1 mmol/L (98-107) 11/10/21 04:12 Carbon Dioxide 23 mmol/L (22-30) 11/10/21 04:12 Anion Gap 15 mmol/L 11/10/21 04:12 BUN 11 mg/dL (7-17) 11/10/21 04:12 Creatinine 0.6 mg/dL (0.6-1.2) 11/10/21 04:12 Estimated GFR > 60 ml/min 11/10/21 04:12 BUN/Creatinine Ratio 18 % 11/10/21 04:12 Glucose 138 mg/dL (65-100) H 11/10/21 04:12 POC Glucose 160 mg/dL (70-105) H 11/10/21 00:13 Lactic Acid 0.80 mmol/L (0.7-2.0) 11/08/21 23:19 Calcium 8.2 mg/dL (8.4-10.2) L 11/10/21 04:12 Phosphorus 3.90 mg/dL (2.5-4.5) 11/10/21 04:12 Magnesium 1.40 mg/dL (1.7-2.3) L 11/10/21 04:12 Total Bilirubin < 0.20 mg/dL (0.1-1.2) 11/10/21 04:12 Direct Bilirubin < 0.2 mg/dL (0-0.2) 11/10/21 04:12 Indirect Bilirubin 0.0 mg/dL 11/10/21 04:12 AST 9 units/L (5-40) 11/10/21 04:12 ALT 8 units/L (7-56) 11/10/21 04:12 Alkaline Phosphatase 114 units/L (35-129) 11/10/21 04:12 Lactate Dehydrogenase 99 units/L (91-180) 11/09/21 10:45 Troponin T 0.089 ng/mL (0.00-0.029) H 11/08/21 23:19 C-Reactive Protein 3.40 mg/dL (0.00-1.30) H 11/09/21 10:45 NT-Pro-B Natriuret Pep 85286 pg/mL (0-900) H 11/08/21 19:42 Total Protein 4.6 g/dL (6.3-8.2) L 11/10/21 04:12 Albumin 2.4 g/dL (3.9-5) L 11/10/21 04:12 Albumin/Globulin Ratio 1.1 % 11/10/21 04:12 Triglycerides 98 mg/dL (2-149) 11/08/21 19:42 Cholesterol 161 mg/dL (50-199) 11/08/21 19:42 LDL Cholesterol Direct 64 mg/dL (50-130) 11/08/21 19:42 HDL Cholesterol 72 mg/dL (40-59) H 11/08/21 19:42 Cholesterol/HDL Ratio 2.23 % 11/08/21 19:42 Urine Color Colorless (Yellow) 11/08/21 21:39 Urine Turbidity Clear (Clear) 11/08/21 21:39 Specific [place] (Man) 1.015 (1.003-1.030) 11/08/21 21:39 Ur Protein (Man) <30 mg dl mg/dL (Negative) 11/08/21 21:39 Ur Ketones (Man) Negative (Negative) 11/08/21 21:39 Ur Nitrite (Man) Negative (Negative) 11/08/21 21:39 Urine Bilirubin (Man) Negative (Negative) 11/08/21 21:39 Leukocyte Esterase (Man) Small (Negative) 11/08/21 21:39 Urine WBC (Auto) < 1.0 /HPF (0.0-6.0) 11/08/21 21:39 Urine RBC (Auto) < 1.0 /HPF (0.0-6.0) 11/08/21 21:39 Urine RBC (Manual) Negative (Negative) 11/08/21 21:39 Urine Mucus Few /HPF 11/08/21 21:39 Microbiology: Microbiology 11/08/21 19:42 Peripheral/Venous Blood Culture - Preliminary NO GROWTH AFTER 24 HOURS 11/08/21 19:42 Peripheral/Venous Blood Culture - Preliminary NO GROWTH AFTER 24 HOURS Sanchez/IV: Voiding Method Indwelling Catheter Active Medications - Current Medications Current Medications: Generic Name Dose Route Start Last Admin Trade Name Freq PRN Reason Stop Dose Admin Atorvastatin Calcium 80 mg 11/09/21 22:00 11/09/21 22:09 Atorvastatin 40 Mg Tab PO 80 mg QHS CHRISTOPHER Administration Carvedilol 3.125 mg 11/09/21 22:00 11/10/21 10:50 Carvedilol 3.125 Mg Tab PO 3.125 mg BID CHRISTOPHER Administration Citalopram Hydrobromide 20 mg 11/09/21 10:00 11/10/21 10:50 Citalopram 20 Mg Tab PO 20 mg DAILY CHRISTOPHER Administration Clopidogrel Bisulfate 75 mg 11/10/21 10:00 11/10/21 10:51 Clopidogrel 75 Mg Tab PO 75 mg QDAY CHRISTOPHER Administration Dextrose 0 ml 11/08/21 23:37 Dextrose 50% In Water (25gm) 50 Ml Syringe IV Q30MIN PRN Hypoglycemia Protocol Duloxetine HCl 30 mg 11/09/21 10:00 11/10/21 10:51 Duloxetine 30 Mg Cap PO 30 mg BID CHRISTOPHER Administration Furosemide 40 mg 11/09/21 06:00 11/10/21 05:58 Furosemide 40 Mg/4 Ml Inj IV 40 mg BID@0600,1800 CHRISTOPHER Administration Gabapentin 900 mg 11/09/21 10:00 11/10/21 10:50 Gabapentin 300 Mg Cap PO 900 mg BID CHRISTOPHER Administration Magnesium Sulfate 4 gm in 100 mls @ 25 mls/hr 11/10/21 10:00 11/10/21 10:50 Magnesium Sulfate 4gm/100ml IV 11/10/21 14:00 25 mls/hr ONCE@1000 CHRISTOPHER Administration Insulin Human Lispro 0 unit 11/09/21 07:30 11/10/21 11:11 Insulin Lispro 100 Unit/Ml SUB-Q 3 unit ACHS CHRISTOPHER Administration Protocol Levetiracetam 500 mg 11/09/21 10:00 11/10/21 10:51 Levetiracetam 500 Mg Tab PO 500 mg BID CHRISTOPHER Administration Losartan Potassium 25 mg 11/10/21 10:00 11/10/21 10:51 Losartan 25 Mg Tab PO 25 mg QDAY CHRISTOPHER Administration Magnesium Hydroxide 30 ml 11/08/21 23:30 Magnesium Hydroxide (Mom) Oral Liqd Udc PO Q4H PRN Constipation Morphine Sulfate 2 mg 11/08/21 23:30 11/09/21 08:22 Morphine 2 Mg/1 Ml Inj IV 2 mg Q4H PRN Administration Pain, Moderate (4-6) Ondansetron HCl 4 mg 11/08/21 23:30 Ondansetron 4 Mg/2 Ml Inj IV Q8H PRN Nausea And Vomiting Pantoprazole Sodium 40 mg 11/09/21 10:00 11/10/21 10:50 Pantoprazole 40 Mg Tab PO 40 mg DAILY CHRISTOPHER Administration Primidone 50 mg 11/09/21 10:00 11/09/21 22:09 Primidone 50 Mg Tab PO 50 mg BID CHRISTOPHER Administration Sodium Chloride 10 ml 11/09/21 10:00 11/10/21 10:51 Sodium Chloride 0.9% 10 Ml Flush Syringe IV 10 ml BID CHRISTOPHER Administration Sodium Chloride 10 ml 11/08/21 22:26 Sodium Chloride 0.9% 10 Ml Flush Syringe IV PRN PRN LINE FLUSH Nutrition/Malnutrition Assess - Dietary Evaluation Nutrition/Malnutrition Findings: Nutrition Notes Start: 11/09/21 16:36 Freq: Status: Active Protocol: Document 11/09/21 16:36 [facility] (Rec: 11/09/21 16:42 [facility] [id number]) Nutrition Notes 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 Pt c/o SOB for the past 3 wks. Currently on BiPap support. Burn Absent Trauma Absent Skin Integrity/Comment (L) medial buttock wound Minimum of two criteria No #1 Nutrition Diagnosis Predicted suboptimal energy intake Etiology SOB As Evidenced by Signs and Symptoms pt on and off BiPap support Is patient on ventilator? No Is Patient Ambulatory and/or Out of Bed No REE-([place]-confined to bed) 1260.072 Kcal/Kg value to use for calculation 25 Approximate Energy Requirements Using 1350 kcal/Kg Calculation Used for Recommendations Kcal/kg Additional Notes Pro needs 1.2-2g/k-108g/ day Fluid needs per MD. Nutrition Intervention Change Diet Order: Continue current diet order Goal #1 PO intake to meet at least 75% energy and pro needs Anticipated Discharge Needs: Unable to identify at this time Follow-Up By: 11/13/21 Additional Comments F/U: intakes
--- NOTE | 2021-11-10 11:28 | Progress Note ---
Assessment and Plan Acute P.E. Acute hypoxemic respiratory failure Acute exacerbation of congestive heart failure Hypotension at presentation Non-ST elevation myocardial infarction Nausea and vomiting Abdominal pain Anemia that is normocytic Hyponatremia Adult failure to thrive - hold on anticoagulation re: h/o severe GI bleeding tere patient - Vascular surgery evaluation ongoing - follow lower extremity dopplers +/- IVC filter placement - GI consult placed - continue to wean supplemental oxygen for target O2 sat's > 90% acutely - aspiration precautions - continue bronchodilators with pulmonary hygiene per RT - avoid nephrotoxins, renally dose all medications - continue to avoid benzodiazepine's, reduce the possibility of delirium - AB's per ID rec's - prn analgesia per CPOT score - Maintenance of sleep-wake cycle, avoid delirium - G.I. & VTE prophylaxis - PT/OT/ROM exercises - continue mobility protocols for pressure ulcer prophylaxis - Monitor hemodynamics closely - continue other care per attending / other consultants - discharge planning ongoing concurrently .... Re-evaluate in am & prn .....observe in IMCU for now CONDITION: CRITICAL PROGNOSIS: GUARDED CODE STATUS: FULL CODE The high probability of a clinically significant, sudden or life-threatening deterioration of the [respiratory, cardiovascular & hematologic] system(s) required my full and direct attention, intervention and personal management. The aggregate critical care time was [33] minutes without overlap. Time includes spent on; [x] Data Review and interpretation [x] Patient assessment and monitoring of vital signs [x] Documentation [x] Medication orders and management Subjective Date of service: 11/10/21 Principal diagnosis: Acute PE; Hypotension; AHRF; AE-CHF; Hypotension; NSTEMI; Anemia Interval history: Patient is seen today for: Acute hypoxemic respiratory failure; Acute PE; AE- CHF; Hypotension; NSTEMI; Anemia Seen and examined at bedside; 24hour events reviewed; nursing and respiratory care staff consulted; no adverse overnight events reported to me; resting peacefully in bed; remains with mildly increased work of breathing; CTA revels small non-occlusive PE's but also suggestive of right DVT; she denies acute chest pain; states she has had "large" GI bleeding in the past requiring transfusions and they "never could tell me why" Objective Vital Signs - 12hr 11/09/21 11/09/21 11/09/21 23:31 23:33 23:45 Temperature 97.8 F Pulse Rate 82 82 Pulse Rate [ From Monitor] Respiratory 12 14 Rate Blood Pressure 128/51 128/51 O2 Sat by Pulse 96 96 Oximetry 11/10/21 11/10/21 11/10/21 00:00 00:07 00:15 Temperature Pulse Rate 81 82 81 Pulse Rate [ 81 From Monitor] Respiratory 13 14 13 Rate Blood Pressure 133/53 133/53 133/53 O2 Sat by Pulse 95 96 96 Oximetry 11/10/21 11/10/21 11/10/21 00:31 00:45 01:00 Temperature Pulse Rate 80 80 80 Pulse Rate [ From Monitor] Respiratory 13 13 13 Rate Blood Pressure 133/53 133/53 133/57 O2 Sat by Pulse 97 98 97 Oximetry 11/10/21 11/10/21 11/10/21 01:15 01:31 01:45 Temperature Pulse Rate 80 80 80 Pulse Rate [ From Monitor] Respiratory 14 13 13 Rate Blood Pressure 133/57 133/57 133/57 O2 Sat by Pulse 98 98 99 Oximetry 11/10/21 11/10/21 11/10/21 02:00 02:15 02:31 Temperature Pulse Rate 79 80 80 Pulse Rate [ From Monitor] Respiratory 12 12 12 Rate Blood Pressure 137/51 137/51 137/51 O2 Sat by Pulse 97 99 99 Oximetry 11/10/21 11/10/21 11/10/21 02:45 03:00 03:15 Temperature Pulse Rate 79 79 80 Pulse Rate [ From Monitor] Respiratory 11 L 13 12 Rate Blood Pressure 137/51 139/53 137/51 O2 Sat by Pulse 98 97 99 Oximetry 11/10/21 11/10/21 11/10/21 03:18 03:30 03:45 Temperature 97.4 F L Pulse Rate 79 79 Pulse Rate [ From Monitor] Respiratory 10 L 10 L Rate Blood Pressure 139/53 O2 Sat by Pulse 99 98 Oximetry 11/10/21 11/10/21 11/10/21 04:00 04:15 04:31 Temperature Pulse Rate 77 80 72 Pulse Rate [ 77 From Monitor] Respiratory 11 L 13 13 Rate Blood Pressure 129/54 129/54 129/54 O2 Sat by Pulse 98 96 98 Oximetry 11/10/21 11/10/21 11/10/21 04:45 05:00 05:15 Temperature Pulse Rate 72 74 77 Pulse Rate [ From Monitor] Respiratory 11 L 11 L 12 Rate Blood Pressure 129/54 132/54 132/54 O2 Sat by Pulse 98 98 99 Oximetry 11/10/21 11/10/21 11/10/21 05:31 05:45 06:00 Temperature Pulse Rate 77 81 81 Pulse Rate [ From Monitor] Respiratory 11 L 17 17 Rate Blood Pressure 132/54 132/54 139/63 O2 Sat by Pulse 96 96 97 Oximetry 11/10/21 11/10/21 11/10/21 06:15 06:31 06:45 Temperature Pulse Rate 79 77 72 Pulse Rate [ From Monitor] Respiratory 13 14 13 Rate Blood Pressure 139/63 139/63 139/63 O2 Sat by Pulse 95 95 96 Oximetry 11/10/21 11/10/21 11/10/21 07:00 07:15 07:31 Temperature Pulse Rate 72 75 78 Pulse Rate [ From Monitor] Respiratory 13 19 13 Rate Blood Pressure 123/48 123/48 123/48 O2 Sat by Pulse 95 96 97 Oximetry 11/10/21 11/10/21 11/10/21 07:45 08:01 08:15 Temperature Pulse Rate 85 83 84 Pulse Rate [ From Monitor] Respiratory 21 17 17 Rate Blood Pressure 133/49 127/76 127/76 O2 Sat by Pulse 91 95 94 Oximetry 11/10/21 11/10/21 11/10/21 08:31 08:45 09:01 Temperature Pulse Rate 84 81 82 Pulse Rate [ From Monitor] Respiratory 13 18 18 Rate Blood Pressure 127/76 127/76 127/85 O2 Sat by Pulse 95 96 97 Oximetry 11/10/21 11/10/21 11/10/21 09:15 09:31 09:45 Temperature Pulse Rate 79 80 80 Pulse Rate [ From Monitor] Respiratory 18 16 17 Rate Blood Pressure 127/85 127/85 127/85 O2 Sat by Pulse 98 97 97 Oximetry 11/10/21 11/10/21 11/10/21 10:00 10:15 10:31 Temperature Pulse Rate 84 83 84 Pulse Rate [ From Monitor] Respiratory 18 24 22 Rate Blood Pressure 124/88 124/88 124/88 O2 Sat by Pulse 96 97 99 Oximetry 11/10/21 11/10/21 11/10/21 10:45 10:50 10:51 Temperature Pulse Rate 84 84 84 Pulse Rate [ From Monitor] Respiratory 28 H Rate Blood Pressure 124/88 124/88 124/88 O2 Sat by Pulse 97 Oximetry 11/10/21 11:00 Temperature Pulse Rate 87 Pulse Rate [ From Monitor] Respiratory 17 Rate Blood Pressure 134/92 O2 Sat by Pulse 97 Oximetry Constitutional: no acute distress, other (elderly thin female with mildly increased respiratory effort at rest) Eyes: non-icteric ENT: oropharynx moist Neck: supple, no lymphadenopathy, no JVD Effort: mildly labored Ascultation: Bilateral: rales (bases) Percussion: Bilateral: not dull Cardiovascular: regular rate and rhythm Gastrointestinal: normoactive bowel sounds, soft, non-tender, non-distended Integumentary: normal Extremities: no cyanosis, pink and warm, pulses normal, edema (trace) Neurologic: non-focal exam, pupils equal and round, CN II-XII normal, motor strength normal and Psychiatric: mood appropriate, affect normal CBC and BMP: 11/10/21 06:00 11/10/21 04:12 ABG, PT/INR, D-dimer: PT/INR, D-dimer PT 13.6 Sec. (12.2-14.9) 11/08/21 19:42 INR 0.94 (0.87-1.13) 11/08/21 19:42 D-Dimer 825.58 ng/mlDDU (0-234) H 11/09/21 10:45 Abnormal lab findings: Abnormal Labs 11/08/21 11/08/21 11/08/21 19:42 19:42 19:42 RBC 3.02 L Hgb 7.6 L Hct 24.3 L MCH 25 L RDW 21.2 H Lymph % (Auto) 8.[address] [place] % (Auto) Lymph # (Auto) 0.7 L Seg Neutrophils % 86.2 H D-Dimer Sodium 129 L Chloride 94.6 L Carbon Dioxide Creatinine 0.5 L Glucose 152 H POC Glucose Calcium 8.2 L Magnesium Alkaline Phosphatase 151 H Troponin T 0.111 H* C-Reactive Protein NT-Pro-B Natriuret Pep Total Protein 5.4 L Albumin 3.0 L HDL Cholesterol 72 H 11/08/21 11/08/21 11/09/21 19:42 23:19 01:29 RBC Hgb Hct MCH RDW Lymph % (Auto) [place] % (Auto) Lymph # (Auto) Seg Neutrophils % D-Dimer Sodium Chloride Carbon Dioxide Creatinine Glucose POC Glucose 146 H Calcium Magnesium Alkaline Phosphatase Troponin T 0.089 H C-Reactive Protein NT-Pro-B Natriuret Pep 41531 H Total Protein Albumin HDL Cholesterol 11/09/21 11/09/21 11/09/21 04:00 04:00 07:28 RBC 3.17 L Hgb 7.8 L Hct 25.9 L MCH 25 L RDW 20.7 H Lymph % (Auto) 10.[address] [place] % (Auto) Lymph # (Auto) 0.8 L Seg Neutrophils % 80.0 H D-Dimer Sodium 134 L Chloride Carbon Dioxide 21 L Creatinine 0.5 L Glucose 179 H POC Glucose 198 H Calcium 8.1 L Magnesium Alkaline Phosphatase Troponin T C-Reactive Protein NT-Pro-B Natriuret Pep Total Protein Albumin HDL Cholesterol 11/09/21 11/09/21 11/09/21 10:45 10:45 11:34 RBC Hgb Hct MCH RDW Lymph % (Auto) [place] % (Auto) Lymph # (Auto) Seg Neutrophils % D-Dimer 825.58 H Sodium Chloride Carbon Dioxide Creatinine Glucose POC Glucose 133 H Calcium Magnesium Alkaline Phosphatase Troponin T C-Reactive Protein 3.40 H NT-Pro-B Natriuret Pep Total Protein Albumin HDL Cholesterol 11/09/21 11/09/21 11/10/21 17:52 21:31 00:13 RBC Hgb Hct MCH RDW Lymph % (Auto) [place] % (Auto) Lymph # (Auto) Seg Neutrophils % D-Dimer Sodium Chloride Carbon Dioxide Creatinine Glucose POC Glucose 158 H 62 L 160 H Calcium Magnesium Alkaline Phosphatase Troponin T C-Reactive Protein NT-Pro-B Natriuret Pep Total Protein Albumin HDL Cholesterol 11/10/21 11/10/21 11/10/21 04:00 04:12 06:00 RBC 2.79 L 2.80 L Hgb 6.8 L 7.1 L Hct 22.5 L 22.4 L MCH 25 L 26 L RDW 20.8 H 20.5 H Lymph % (Auto) [place] % (Auto) 9.9 H Lymph # (Auto) 1.0 L Seg Neutrophils % D-Dimer Sodium 133 L Chloride Carbon Dioxide Creatinine Glucose 138 H POC Glucose Calcium 8.2 L Magnesium 1.40 L Alkaline Phosphatase Troponin T C-Reactive Protein NT-Pro-B Natriuret Pep Total Protein 4.6 L Albumin 2.[address] scan - chest: image reviewed Allied health notes reviewed: nursing
--- NOTE | 2021-11-10 11:40 | Progress Note ---
Assessment and Plan Patient is a 71-year-old female with past medical history of coronary artery disease s/p CABG 2015, hypertension, COPD, peripheral vascular disease s/p left lower extremity AKA, GI ulcers, anemia, and current smoker who reported to the ED with a complaint of shortness of breath, nausea, and vomiting x1 to 2 weeks. Acute respiratory failure-pulmonology follow Acute on chronic HFrEF Abdominal pain/nausea/vomiting- CT abd pending NSTEMI suspect type II Ischemic cardiomyopathy small PE Anemia COPD-pulmonology following CAD s/p CABG 2014 Hypertension Peripheral vascular disease s/p AKA History of GI ulcers Tobacco abuse Elevated D-dimer- CTA chest pending Echo 10/05/2021-EF 35 to 40%. Regional wall motion abnormalities. Right ventricle is normal in size with normal ventricle ventricular systolic function. Severe mitral regurgitation. Mild tricuspid regurgitation Cardiac cath 10/15/2021- 2-vessel CAD with diffusely diseased LAD and left circumflex Widely patent REGALADO to mid LAD and SVG toOMbypass graftsModerately reduced LV systolic function with ejection fraction 30 to 35% and associated moderate, hypokinesis Mildly elevated LVEDP Normal systemic arterial pressures. Recommend aggressive medical therapy rec: cont iv lasix and coreg and losartan , vascular followup for pe and possible dvt in right leg. possible ivc Subjective Date of service: 11/10/21 Principal diagnosis: Acute PE; Hypotension; Interval history: sob is stable Objective Vital Signs Temp Pulse Pulse Resp BP Pulse Ox 11/10/21 11:00 87 17 134/92 97 11/10/21 10:51 84 124/88 11/10/21 10:50 84 124/88 11/10/21 10:45 84 28 H 124/88 97 11/10/21 10:31 84 22 124/88 99 11/10/21 10:15 83 24 124/88 97 11/10/21 10:00 84 18 124/88 96 11/10/21 09:45 80 17 127/85 97 11/10/21 09:31 80 16 127/85 97 11/10/21 09:15 79 18 127/85 98 11/10/21 09:01 82 18 127/85 97 11/10/21 08:45 81 18 127/76 96 11/10/21 08:31 84 13 127/76 95 11/10/21 08:15 84 17 127/76 94 11/10/21 08:01 83 17 127/76 95 11/10/21 07:45 85 21 133/49 91 11/10/21 07:31 78 13 123/48 97 11/10/21 07:15 75 19 123/48 96 11/10/21 07:00 72 13 123/48 95 11/10/21 06:45 72 13 139/63 96 11/10/21 06:31 77 14 139/63 95 11/10/21 06:15 79 13 139/63 95 11/10/21 06:00 81 17 139/63 97 11/10/21 05:45 81 17 132/54 96 11/10/21 05:31 77 11 L 132/54 96 11/10/21 05:15 77 12 132/54 99 11/10/21 05:00 74 11 L 132/54 98 11/10/21 04:45 72 11 L 129/54 98 11/10/21 04:31 72 13 129/54 98 11/10/21 04:15 80 13 129/54 96 11/10/21 04:00 77 77 11 L 129/54 98 11/10/21 03:45 79 10 L 98 11/10/21 03:30 79 10 L 139/53 99 11/10/21 03:18 97.4 F L 11/10/21 03:15 80 12 137/51 99 11/10/21 03:00 79 13 139/53 97 11/10/21 02:45 79 11 L 137/51 98 11/10/21 02:31 80 12 137/51 99 11/10/21 02:15 80 12 137/51 99 11/10/21 02:00 79 12 137/51 97 11/10/21 01:45 80 13 133/57 99 11/10/21 01:31 80 13 133/57 98 11/10/21 01:15 80 14 133/57 98 11/10/21 01:00 80 13 133/57 97 11/10/21 00:45 80 13 133/53 98 11/10/21 00:31 80 13 133/53 97 11/10/21 00:15 81 13 133/53 96 11/10/21 00:07 82 14 133/53 96 11/10/21 00:00 81 81 13 133/53 95 11/09/21 23:45 82 14 128/51 96 11/09/21 23:33 97.8 F 11/09/21 23:31 82 12 128/51 96 11/09/21 23:15 82 14 128/51 96 11/09/21 23:00 81 14 128/51 96 11/09/21 22:45 89 15 153/64 96 11/09/21 22:31 91 H 15 153/64 94 11/09/21 22:15 95 H 19 153/64 93 11/09/21 22:08 94 H 153/66 11/09/21 22:00 94 H 17 153/64 94 11/09/21 21:45 97 H 17 153/66 94 11/09/21 21:30 94 H 16 153/66 94 11/09/21 21:15 95 H 15 153/66 93 11/09/21 21:00 94 H 16 153/66 93 11/09/21 20:45 85 17 137/59 94 11/09/21 20:31 82 17 137/59 94 11/09/21 20:15 84 16 137/59 94 11/09/21 20:00 84 84 18 137/59 93 11/09/21 19:45 87 20 135/61 94 11/09/21 19:31 88 22 135/61 93 11/09/21 19:30 98.2 F 11/09/21 19:15 87 16 135/61 95 11/09/21 19:01 83 22 135/61 95 11/09/21 18:45 79 17 95 11/09/21 18:31 89 17 95 11/09/21 18:21 81 13 137/60 95 11/09/21 16:45 80 22 126/70 94 11/09/21 16:30 80 25 H 131/68 92 11/09/21 16:15 80 15 126/63 96 11/09/21 16:00 81 18 126/63 96 11/09/21 15:45 83 20 137/59 95 11/09/21 15:30 78 14 120/54 96 11/09/21 15:15 76 15 123/55 96 11/09/21 15:00 87 15 126/58 95 11/09/21 14:45 87 14 118/61 95 11/09/21 14:30 77 16 117/53 94 11/09/21 14:15 77 14 121/55 92 11/09/21 14:00 76 17 114/51 92 11/09/21 13:46 80 15 120/53 94 11/09/21 13:30 88 17 131/56 95 11/09/21 13:15 92 H 17 127/61 94 11/09/21 13:00 96 H 20 137/60 95 11/09/21 12:45 103 H 22 141/60 93 11/09/21 12:30 109 H 28 H 160/63 93 11/09/21 12:15 97 H 20 127/56 94 11/09/21 12:00 97.6 F 107 H 26 H 152/63 94 11/09/21 11:46 106 H 23 156/64 93 - Physical Examination HEENT: Positive: PERRL, Mucus Membranes Moist Neck: Positive: trachea midline Cardiac: Positive: Reg Rate and Rhythm Lungs: Positive: Decreased Breath Sounds, Rales Neuro: Positive: Grossly Intact Abdomen: Positive: Tender Skin: Negative: Rash, Suspicious Lesions, Ulceration Extremities: Present: upper extr. pulses, Other (right leg no edema) - Labs and Meds Cardiac Enzymes 11/09/21 11/10/21 Range/Units 10:45 04:12 AST 9 (5-40) units/L Lactate Dehydrogenase 99 (91-180) units/L CBC 11/10/21 11/10/21 Range/Units 04:00 06:00 WBC 5.7 5.9 (4.5-11.0) K/mm3 RBC 2.79 L 2.80 L (3.65-5.03) M/mm3 Hgb 6.8 L 7.1 L (10.1-14.3) gm/dl Hct 22.5 L 22.4 L (30.3-42.9) % Plt Count 288 276 (140-440) K/mm3 Lymph # (Auto) 1.0 L (1.2-5.4) K/mm3 [place] # (Auto) 0.6 (0.0-0.8) K/mm3 Eos # (Auto) 0.2 (0.0-0.4) K/mm3 Baso # (Auto) 0.1 (0.0-0.1) K/mm3 Comprehensive Metabolic Panel 11/10/21 Range/Units 04:12 Sodium 133 L (137-145) mmol/L Potassium 4.2 (3.6-5.0) mmol/L Chloride 99.1 (98-107) mmol/L Carbon Dioxide 23 (22-30) mmol/L BUN 11 (7-17) mg/dL Creatinine 0.6 (0.6-1.2) mg/dL Glucose 138 H (65-100) mg/dL Calcium 8.2 L (8.4-10.2) mg/dL Direct Bilirubin < 0.2 (0-0.2) mg/dL Indirect Bilirubin 0.0 mg/dL AST 9 (5-40) units/L ALT 8 (7-56) units/L Alkaline Phosphatase 114 (35-129) units/L Total Protein 4.6 L (6.3-8.2) g/dL Albumin 2.4 L (3.9-5) g/dL - Imaging and Cardiology EKG: report reviewed, image reviewed Echo: report reviewed Cardiac cath: report reviewed - Telemetry EKG Rhythm: Sinus Rhythm - EKG Sinus rhythms and dysrhythmias: sinus rhythm Repolarization changes or abnormalities: nonspecific abnormality, ST segment, and/or T wave
[2021-11-10] MEDS: MORPHINE 2 MG/1 ML INJ IV PRN ×2 (14:34→19:36)
[2021-11-10] MEDS: PRIMIDONE 50 MG TAB PO SCH ×2 (15:29→22:56)
[2021-11-10 16:23] LABS: Hematocrit 24.4 % (30.3-42.9); Hemoglobin 7.5 gm/dl (10.1-14.3)
--- NOTE | 2021-11-10 19:07 | Consultation ---
History of Present Illness - Reason for Consult Consult date: 11/10/21 Anemia Requesting physician: GRACIE BLAS - History of Present Illness Ms. lama is a 71-year-old woman on whom I am consulted for anemia and a history of ulcers. Patient has a history of peripheral arterial disease as well as coronary artery disease. She has congestive heart failure and was admitted with a 2-day history of progressive dyspnea. She is found to be in CHF. She is anemic with a hemoglobin of 7.5 and GI consultation is requested. Patient has a longstanding history of anemia. She underwent upper endoscopy on October 08 of this year and a colonoscopy on October 09 for the same anemia and was found to have small superficial duodenal ulcers that were not thought to have any stigmata of bleeding, and not deemed to be a contraindication to anticoagulation. The colonoscopy was normal. The upper endoscopy findings are similar to what was found in June 2015. Patient denies any abdominal pain, nausea, vomiting. Her bowel movements are regular and on a daily basis. There is been no change. There is been no bleeding noted. She has a good appetite. Patient has a longstanding history of anemia for many years but no clear etiology has been elucidated as far she is aware. Medications reviewed Past History Past Medical History: acute [place], anemia (Longstanding), CAD, COPD, diabetes, GERD, hypertension, hyperlipidemia, other (: Neck surgery, back surgery, stents placed in legs?, L leg amputation) Past Surgical History: CABG, Other (Open heart heart surgery in 2014, colonoscopy on October 09, 2021normal. Upper endoscopy on October 08mall superficial duodenal erosions, not deemed to be significant. Status post left leg amputation.) Social history: smoking (Current daily smoker) Family history: no significant family history Medications and Allergies Allergies Allergy/AdvReac Type Severity Reaction Status Date / Time acetaminophen [From Tylenol] Allergy CAUSES Verified 11/09/21 05:13 ISSUE WITH LIVER Antihistamines - Alkylamine Allergy Shortness Verified 11/09/21 05:13 of Breath codeine Allergy Headache Verified 11/09/21 05:13 Penicillins Allergy Angioedema Verified 11/09/21 05:13 Sulfa (Sulfonamide Allergy Rash Verified 11/09/21 05:13 Antibiotics) ANTIBIOTICS Allergy Severe EXTREME Uncoded 11/09/21 05:13 STOMACH PAIN Home Medications Medication Instructions Recorded Confirmed Last Taken Type DULoxetine [Cymbalta] 30 mg PO BID 10/06/21 10/06/21 Unknown History Omeprazole 40 mg PO DAILY 10/06/21 10/06/21 Unknown History Primidone [Mysoline] 50 mg PO BID 10/06/21 10/06/21 Unknown History glipiZIDE [Glucotrol] 10 mg PO DAILY 10/06/21 10/06/21 Unknown History Citalopram [Celexa] 20 mg PO DAILY 30 Days #30 tablet 10/09/21 Unknown Rx Furosemide [Lasix] 40 mg PO DAILY 30 Days #30 tab 10/09/21 Unknown Rx Gabapentin 900 mg PO BID 30 Days #180 capsule 10/09/21 Unknown Rx Metformin HCl [metFORMIN] 1,000 mg PO BID 30 Days #60 tab 10/09/21 Unknown Rx Rosuvastatin (Nf) [Crestor] 10 mg PO QHS 30 Days #60 tab 10/09/21 Unknown Rx levETIRAcetam [Keppra TAB] 500 mg PO BID 30 Days #60 tab 10/09/21 Unknown Rx propranoloL [Inderal] 10 mg PO TID 30 Days #90 tab 10/09/21 Unknown Rx Active Meds: Active Medications Atorvastatin Calcium (Atorvastatin 40 Mg Tab) 80 mg PO QHS [facility] Last Admin: 11/09/21 22:09 Dose: 80 mg Carvedilol (Carvedilol 3.125 Mg Tab) 3.125 mg PO BID [facility] Last Admin: 11/10/21 10:50 Dose: 3.125 mg Citalopram Hydrobromide (Citalopram 20 Mg Tab) 20 mg PO DAILY [facility] Last Admin: 11/10/21 10:50 Dose: 20 mg Clopidogrel Bisulfate (Clopidogrel 75 Mg Tab) 75 mg PO QDAY [facility] Last Admin: 11/10/21 10:51 Dose: 75 mg Dextrose (Dextrose 50% In Water (25gm) 50 Ml Syringe) 0 ml IV Q30MIN PRN; Protocol PRN Reason: Hypoglycemia Duloxetine HCl (Duloxetine 30 Mg Cap) 30 mg PO BID [facility] Last Admin: 11/10/21 10:51 Dose: 30 mg Furosemide (Furosemide 40 Mg/4 Ml Inj) 40 mg IV BID@0600,1800 [facility] Last Admin: 11/10/21 05:58 Dose: 40 mg Gabapentin (Gabapentin 300 Mg Cap) 900 mg PO BID [facility] Last Admin: 11/10/21 10:50 Dose: 900 mg Insulin Human Lispro (Insulin Lispro 100 Unit/Ml) 0 unit SUB-Q ACHS [facility]; Protocol Last Admin: 11/10/21 11:11 Dose: 3 unit Levetiracetam (Levetiracetam 500 Mg Tab) 500 mg PO BID [facility] Last Admin: 11/10/21 10:51 Dose: 500 mg Losartan Potassium (Losartan 25 Mg Tab) 25 mg PO QDAY [facility] Last Admin: 11/10/21 10:51 Dose: 25 mg Magnesium Hydroxide (Magnesium Hydroxide (Mom) Oral Liqd Udc) 30 ml PO Q4H PRN PRN Reason: Constipation Morphine Sulfate (Morphine 2 Mg/1 Ml Inj) 2 mg IV Q4H PRN PRN Reason: Pain, Moderate (4-6) Last Admin: 11/10/21 14:34 Dose: 2 mg Ondansetron HCl (Ondansetron 4 Mg/2 Ml Inj) 4 mg IV Q8H PRN PRN Reason: Nausea And Vomiting Pantoprazole Sodium (Pantoprazole 40 Mg Tab) 40 mg PO DAILY [facility] Last Admin: 11/10/21 10:50 Dose: 40 mg Primidone (Primidone 50 Mg Tab) 50 mg PO BID [facility] Last Admin: 11/10/21 15:29 Dose: 50 mg Sodium Chloride (Sodium Chloride 0.9% 10 Ml Flush Syringe) 10 ml IV BID [facility] Last Admin: 11/10/21 10:51 Dose: 10 ml Sodium Chloride (Sodium Chloride 0.9% 10 Ml Flush Syringe) 10 ml IV PRN PRN PRN Reason: LINE FLUSH Exam - Constitutional Vitals: Temp Pulse Resp BP Pulse Ox 97.4 F L 94 H 19 164/77 91 11/10/21 03:18 11/10/21 17:46 11/10/21 17:46 11/10/21 17:46 11/10/21 17:46 Results - Labs CBC & Chem 7: 11/10/21 16:03 11/10/21 04:12 Labs: Abnormal lab results 11/09/21 11/09/21 11/09/21 Range/Units 11:34 17:52 21:31 RBC (3.65-5.03) M/mm3 Hgb (10.1-14.3) gm/dl Hct (30.3-42.9) % MCH (28-32) pg RDW (13.2-15.2) % [place] % (Auto) (0.0-7.3) % Lymph # (Auto) (1.2-5.4) K/mm3 Sodium (137-145) mmol/L Glucose (65-100) mg/dL POC Glucose 133 H 158 H 62 L (70-105) mg/dL Calcium (8.4-10.2) mg/dL Magnesium (1.7-2.3) mg/dL Total Protein (6.3-8.2) g/dL Albumin (3.9-5) g/dL 11/10/21 11/10/21 11/10/21 Range/Units 00:13 04:00 04:12 RBC 2.79 L (3.65-5.03) M/mm3 Hgb 6.8 L (10.1-14.3) gm/dl Hct 22.5 L (30.3-42.9) % MCH 25 L (28-32) pg RDW 20.8 H (13.2-15.2) % [place] % (Auto) (0.0-7.3) % Lymph # (Auto) (1.2-5.4) K/mm3 Sodium 133 L (137-145) mmol/L Glucose 138 H (65-100) mg/dL POC Glucose 160 H (70-105) mg/dL Calcium 8.2 L (8.4-10.2) mg/dL Magnesium 1.40 L (1.7-2.3) mg/dL Total Protein 4.6 L (6.3-8.2) g/dL Albumin 2.4 L (3.9-5) g/dL 11/10/21 11/10/21 11/10/21 Range/Units 06:00 08:14 11:10 RBC 2.80 L (3.65-5.03) M/mm3 Hgb 7.1 L (10.1-14.3) gm/dl Hct 22.4 L (30.3-42.9) % MCH 26 L (28-32) pg RDW 20.5 H (13.2-15.2) % [place] % (Auto) 9.9 H (0.0-7.3) % Lymph # (Auto) 1.0 L (1.2-5.4) K/mm3 Sodium (137-145) mmol/L Glucose (65-100) mg/dL POC Glucose 152 H 202 H (70-105) mg/dL Calcium (8.4-10.2) mg/dL Magnesium (1.7-2.3) mg/dL Total Protein (6.3-8.2) g/dL Albumin (3.9-5) g/dL 11/10/21 11/10/21 Range/Units 16:03 17:01 RBC (3.65-5.03) M/mm3 Hgb 7.5 L (10.1-14.3) gm/dl Hct 24.4 L (30.3-42.9) % MCH (28-32) pg RDW (13.2-15.2) % [place] % (Auto) (0.0-7.3) % Lymph # (Auto) (1.2-5.4) K/mm3 Sodium (137-145) mmol/L Glucose (65-100) mg/dL POC Glucose 142 H (70-105) mg/dL Calcium (8.4-10.2) mg/dL Magnesium (1.7-2.3) mg/dL Total Protein (6.3-8.2) g/dL Albumin (3.9-5) g/dL
--- NOTE | 2021-11-10 19:11 | Consultation ---
History of Present Illness - Reason for Consult Consult date: 11/10/21 Anemia Requesting physician: GRACIE BLAS - History of Present Illness Ms. lama is a 71-year-old woman on whom I am consulted for anemia and a history of ulcers. Patient has a history of peripheral arterial disease as well as coronary artery disease. She has congestive heart failure and was admitted with a 2-day history of progressive dyspnea. She is found to be in CHF. She is anemic with a hemoglobin of 7.5 and GI consultation is requested. Patient has a longstanding history of anemia. She underwent upper endoscopy on October 08 of this year and a colonoscopy on October 09 for the same anemia and was found to have small superficial duodenal ulcers that were not thought to have any stigmata of bleeding, and not deemed to be a contraindication to anticoagulation. The colonoscopy was normal. The upper endoscopy findings are similar to what was found in June 2015. Patient denies any abdominal pain, nausea, vomiting. Her bowel movements are regular and on a daily basis. There is been no change. There is been no bleeding noted. She has a good appetite. Patient has a longstanding history of anemia for many years but no clear etiology has been elucidated as far she is aware. Past History Past Medical History: acute [place], anemia (Longstanding), CAD, COPD, diabetes, GERD, hypertension, hyperlipidemia, other (: Neck surgery, back surgery, stents placed in legs?, L leg amputation) Past Surgical History: CABG, Other (Open heart heart surgery in 2014, colonoscopy on October 09, 2021normal. Upper endoscopy on October 08mall superficial duodenal erosions, not deemed to be significant. Status post left l eg amputation.) Social history: smoking (Current daily smoker) Family history: no significant family history Medications and Allergies Allergies Allergy/AdvReac Type Severity Reaction Status Date / Time acetaminophen [From Tylenol] Allergy CAUSES Verified 11/09/21 05:13 ISSUE WITH LIVER Antihistamines - Alkylamine Allergy Shortness Verified 11/09/21 05:13 of Breath codeine Allergy Headache Verified 11/09/21 05:13 Penicillins Allergy Angioedema Verified 11/09/21 05:13 Sulfa (Sulfonamide Allergy Rash Verified 11/09/21 05:13 Antibiotics) ANTIBIOTICS Allergy Severe EXTREME Uncoded 11/09/21 05:13 STOMACH PAIN Home Medications Medication Instructions Recorded Confirmed Last Taken Type DULoxetine [Cymbalta] 30 mg PO BID 10/06/21 10/06/21 Unknown History Omeprazole 40 mg PO DAILY 10/06/21 10/06/21 Unknown History Primidone [Mysoline] 50 mg PO BID 10/06/21 10/06/21 Unknown History glipiZIDE [Glucotrol] 10 mg PO DAILY 10/06/21 10/06/21 Unknown History Citalopram [Celexa] 20 mg PO DAILY 30 Days #30 tablet 10/09/21 Unknown Rx Furosemide [Lasix] 40 mg PO DAILY 30 Days #30 tab 10/09/21 Unknown Rx Gabapentin 900 mg PO BID 30 Days #180 capsule 10/09/21 Unknown Rx Metformin HCl [metFORMIN] 1,000 mg PO BID 30 Days #60 tab 10/09/21 Unknown Rx Rosuvastatin (Nf) [Crestor] 10 mg PO QHS 30 Days #60 tab 10/09/21 Unknown Rx levETIRAcetam [Keppra TAB] 500 mg PO BID 30 Days #60 tab 10/09/21 Unknown Rx propranoloL [Inderal] 10 mg PO TID 30 Days #90 tab 10/09/21 Unknown Rx Active Meds: Active Medications Atorvastatin Calcium (Atorvastatin 40 Mg Tab) 80 mg PO QHS [facility] Last Admin: 11/09/21 22:09 Dose: 80 mg Carvedilol (Carvedilol 3.125 Mg Tab) 3.125 mg PO BID [facility] Last Admin: 11/10/21 10:50 Dose: 3.125 mg Citalopram Hydrobromide (Citalopram 20 Mg Tab) 20 mg PO DAILY [facility] Last Admin: 11/10/21 10:50 Dose: 20 mg Clopidogrel Bisulfate (Clopidogrel 75 Mg Tab) 75 mg PO QDAY [facility] Last Admin: 11/10/21 10:51 Dose: 75 mg Dextrose (Dextrose 50% In Water (25gm) 50 Ml Syringe) 0 ml IV Q30MIN PRN; Protocol PRN Reason: Hypoglycemia Duloxetine HCl (Duloxetine 30 Mg Cap) 30 mg PO BID [facility] Last Admin: 11/10/21 10:51 Dose: 30 mg Furosemide (Furosemide 40 Mg/4 Ml Inj) 40 mg IV BID@0600,1800 [facility] Last Admin: 11/10/21 05:58 Dose: 40 mg Gabapentin (Gabapentin 300 Mg Cap) 900 mg PO BID [facility] Last Admin: 11/10/21 10:50 Dose: 900 mg Insulin Human Lispro (Insulin Lispro 100 Unit/Ml) 0 unit SUB-Q ACHS [facility]; Protocol Last Admin: 11/10/21 11:11 Dose: 3 unit Levetiracetam (Levetiracetam 500 Mg Tab) 500 mg PO BID [facility] Last Admin: 11/10/21 10:51 Dose: 500 mg Losartan Potassium (Losartan 25 Mg Tab) 25 mg PO QDAY [facility] Last Admin: 11/10/21 10:51 Dose: 25 mg Magnesium Hydroxide (Magnesium Hydroxide (Mom) Oral Liqd Udc) 30 ml PO Q4H PRN PRN Reason: Constipation Morphine Sulfate (Morphine 2 Mg/1 Ml Inj) 2 mg IV Q4H PRN PRN Reason: Pain, Moderate (4-6) Last Admin: 11/10/21 14:34 Dose: 2 mg Ondansetron HCl (Ondansetron 4 Mg/2 Ml Inj) 4 mg IV Q8H PRN PRN Reason: Nausea And Vomiting Pantoprazole Sodium (Pantoprazole 40 Mg Tab) 40 mg PO DAILY [facility] Last Admin: 11/10/21 10:50 Dose: 40 mg Primidone (Primidone 50 Mg Tab) 50 mg PO BID [facility] Last Admin: 11/10/21 15:29 Dose: 50 mg Sodium Chloride (Sodium Chloride 0.9% 10 Ml Flush Syringe) 10 ml IV BID [facility] Last Admin: 11/10/21 10:51 Dose: 10 ml Sodium Chloride (Sodium Chloride 0.9% 10 Ml Flush Syringe) 10 ml IV PRN PRN PRN Reason: LINE FLUSH Review of Systems All systems: negative (As per HPI) Exam - Constitutional Vitals: Temp Pulse Resp BP Pulse Ox 97.4 F L 95 H 18 147/64 91 11/10/21 03:18 11/10/21 19:00 11/10/21 19:00 11/10/21 19:00 11/10/21 19:00 General appearance: Present: no acute distress - EENT Eyes: Present: PERRL, EOM intact ENT: hearing intact - Respiratory Respiratory effort: normal Respiratory: bilateral: rales (bases) - Cardiovascular Rhythm: regular Heart Sounds: Present: S1 & S2 - Extremities Extremity abnormal: other (Status post left AKA) - Abdominal General gastrointestinal: Present: soft, non-tender Results - Labs CBC & Chem 7: 11/10/21 16:03 11/10/21 04:12 Labs: Abnormal lab results 11/09/21 11/09/21 11/09/21 Range/Units 11:34 17:52 21:31 RBC (3.65-5.03) M/mm3 Hgb (10.1-14.3) gm/dl Hct (30.3-42.9) % MCH (28-32) pg RDW (13.2-15.2) % [place] % (Auto) (0.0-7.3) % Lymph # (Auto) (1.2-5.4) K/mm3 Sodium (137-145) mmol/L Glucose (65-100) mg/dL POC Glucose 133 H 158 H 62 L (70-105) mg/dL Calcium (8.4-10.2) mg/dL Magnesium (1.7-2.3) mg/dL Total Protein (6.3-8.2) g/dL Albumin (3.9-5) g/dL 11/10/21 11/10/21 11/10/21 Range/Units 00:13 04:00 04:12 RBC 2.79 L (3.65-5.03) M/mm3 Hgb 6.8 L (10.1-14.3) gm/dl Hct 22.5 L (30.3-42.9) % MCH 25 L (28-32) pg RDW 20.8 H (13.2-15.2) % [place] % (Auto) (0.0-7.3) % Lymph # (Auto) (1.2-5.4) K/mm3 Sodium 133 L (137-145) mmol/L Glucose 138 H (65-100) mg/dL POC Glucose 160 H (70-105) mg/dL Calcium 8.2 L (8.4-10.2) mg/dL Magnesium 1.40 L (1.7-2.3) mg/dL Total Protein 4.6 L (6.3-8.2) g/dL Albumin 2.4 L (3.9-5) g/dL 11/10/21 11/10/21 11/10/21 Range/Units 06:00 08:14 11:10 RBC 2.80 L (3.65-5.03) M/mm3 Hgb 7.1 L (10.1-14.3) gm/dl Hct 22.4 L (30.3-42.9) % MCH 26 L (28-32) pg RDW 20.5 H (13.2-15.2) % [place] % (Auto) 9.9 H (0.0-7.3) % Lymph # (Auto) 1.0 L (1.2-5.4) K/mm3 Sodium (137-145) mmol/L Glucose (65-100) mg/dL POC Glucose 152 H 202 H (70-105) mg/dL Calcium (8.4-10.2) mg/dL Magnesium (1.7-2.3) mg/dL Total Protein (6.3-8.2) g/dL Albumin (3.9-5) g/dL 11/10/21 11/10/21 Range/Units 16:03 17:01 RBC (3.65-5.03) M/mm3 Hgb 7.5 L (10.1-14.3) gm/dl Hct 24.4 L (30.3-42.9) % MCH (28-32) pg RDW (13.2-15.2) % [place] % (Auto) (0.0-7.3) % Lymph # (Auto) (1.2-5.4) K/mm3 Sodium (137-145) mmol/L Glucose (65-100) mg/dL POC Glucose 142 H (70-105) mg/dL Calcium (8.4-10.2) mg/dL Magnesium (1.7-2.3) mg/dL Total Protein (6.3-8.2) g/dL Albumin (3.9-5) g/dL Assessment and Plan 1. Anemialongstanding. Hemoglobin stable. No evidence of ongoing bleeding. Recent upper and lower endoscopy 1 month ago. Empiric PPI daily Check iron studies and B12 Check stool for occult blood
[2021-11-10 20:35] LABS: Iron 12 ug/dL (37-170); Total Iron Binding Capacity 221 mcg/dL (250-450)
--- NOTE | 2021-11-11 02:27 | XRay Report ---
CHEST 1 VIEW 11/11/2021 1:01 AM INDICATION / CLINICAL INFORMATION: Follow up respiratory failure. COMPARISON: One view of the chest from 11/08/2021. FINDINGS: SUPPORT DEVICES: Unchanged thoracic spine stimulating device. HEART / MEDIASTINUM: Stable. LUNGS / PLEURA: Bilateral pulmonary opacities have improved. Pleural effusions are smaller. No pneumo thorax. ADDITIONAL FINDINGS: No significant additional findings. IMPRESSION: Improved aeration of the lungs without new acute findings. Signer Name: Mike Bridges MD Signed: 11/11/2021 2:22 AM Workstation Name: [id number]
[2021-11-11 05:40] LABS: Hemoglobin 7.4 gm/dl (10.1-14.3)
[2021-11-11 05:59] LABS: Blood Urea Nitrogen 14 mg/dL (7-17); Calcium 8.3 mg/dL (8.4-10.2); Hemolysis Index 23
[2021-11-11] MEDS: FUROSEMIDE 40 MG/4 ML INJ IV SCH (06:01)
[2021-11-11 06:12] LABS: BUN/Creatinine Ratio 20
[2021-11-11] MEDS ORDERED: SODIUM POLYSTYRENE 15 GM/60 ML ORAL LIQD PO SCH (08:15)
[2021-11-11] MEDS: INSULIN LISPRO 100 UNIT/ML SUB-Q SCH ×4 (08:49→22:47)
--- NOTE | 2021-11-11 09:50 | Progress Note ---
Assessment and Plan Assessment and plan: This is a 71-year-old male with known past medical history CAD s/p CABG in 2015, HTN, COPD, current tobacco dependence, PVD s/p LLE AKA, GI ulcers, and anemia admitted for hypotension, acute of chronic CHF exacerbation, and acute hypoxic respiratory failure Hospital Course to Date: 11/09: Off Levophed gtt this am, VSS, on 5L NC. Patient still complaining of chest pressure with abdominal and flank pain. Will get CTA chest/abd/pelvis for further eval. Continue IV lasix BID for now, cardiololgy is following. D/w CCM is patient remains off pressors this afternoon okay to transfer patient to [facility]. 11/10: CTA chest/Abd with small nonobstructive PTE and possible left common fem oral vein DVT. Patient is stable on 4L NC, no respiratory distress noted. Remains on IV Lasix BID. Patient current on subQ Lovenox and Plavix. H&H dropped this am, no s/s of any active bleeding. Patient does have a history of GI ulcer and chronic anemia, patient reported that she stopped taking her Plavix because "she was tired of it". Check BLE doppler to r/o DVT. Will hold AC for now and continue PO Plavix. Vascular Surgery consulted for possible IVC filter eval. Will also check a stool occult, transfuse for H&H less than 7. 11/11: GI input reviewed, ordered iron studies and B12 also occult blood. Awaiting Doppler of lower ext. Vascular to decide about IVC filter. Will discuss with pulmonary team about possible repeating CTA chest and if persistent for PE will initate AC which has been on hold due to severe anemia and monitor for any bleed. Wean off oxygen as tolerated, Noted very low iron stores, will start on Iron supplementation. Continue [facility] care Assessment and Plan #Acute of Chronic CHF exacerbation with reduced EF of 35 to 40% on 10/05/2021 #Elevated Troponin #H/o Hypertension #CAD s/p CABG - Presented with SOB, orthopnea, elevated BNP, and LE edema - Patient was also noted to be hypotensive in the ED and Levophed was initiated - Off levo this am, remains in SR, VSS - Troponin positive X2, downtrending. possibly secondary to demand ischemia - EKG shows SR with no significant ST changes - Echo from 09/2021 reviewed EF 35 to 40% - On IV Lasix BID - Cardiology consulted, appreciate recommendations - Resume home meds - Continue blood pressure monitor per protocol - Maintain MAP above 65 and SBP less than 160 - VTE phrop on hold due to anemia - Strick I&Os and daily weight - CCM consulted, appreciate recommendations #Acute Hypoxic Respiratory Failure #H/o COPD, current smoker - Probably secondary to above - Desated in the 70s on RA, c/o SOB and orthopnea - Chest x-ray significant for bilateral pulmonary opacities and pleural effusion. This is concerning for congestive heart failure - Currently on 4L NC - Continue IV lasix BID - Continue O2 supplementation as tolerated - Continue SPO2 monitoring for SPO2 goal above 92% - CCM consulted, appreciate recommendations #Pulmonary Thromboemboli (PTE) #Possible Left common femoral DVT - Noted on CTA Chest/abd, X2 small nonocclusive PTE and possible left common femoral DVT - BLE doppler ordered to r/o DVT - On VTE proh and Plavix, drop in H&H this am. No s/s of any active bleeding - Will hold AC for now, continue PO Plavix - Vascular Surgery consulted for possible IVC filter eval #Abdominal Pain-resolved #Diarrhea - Unknown Etiology - Patient reported chest pressure with abdominal pain, flank pain, and diarrhea - Cardiac w/up as described above - No diarrhea reported sinced admit - CTA chest/abd/pelvis reviewed as describe above, otherwise no acute process in the abdomen or pelvis - Alkaline phosp normalized, will continue to trend LFTs #Anemia of Chronic Disease #History of GI Ulcers - Drop in H&H this am - No s/s of any active bleeding, VSS - VTE proph held - Continue to trend CBC - Transfuse for Hgb less than 7 #Tobacco Dependence - Patient reported a 45 years smoking history. She stated she has not smoked for 5 days - Smoking cessation education provided. Patient verbalized understanding and agreed with the info provided - Denied any urges at this time. Nicotine patch if needed #Peripheral Vascular Disease(PVD) s/p LLE AKA - Chronic - Home Plavix and gabapentin resumed #Hyperglycemia - 09/2021 Hgb A1c 6.0 - BG check and SSI initiated ACHS - Avoid Hypoglycemia - While critically ill target blood glucose of 140-180 #GI/DVT Prophylaxis - PPI- Protonix - SCDs to bilateral lower extremities while in bed #Advance Care Planning - Disease education data, care plan, diagnoses, and prognosis were discussed with the patient at the bedside. Patient is a FULL code. Patient acknowledged understanding and agreed with current care plan. The high probability of a clinically significant, sudden or life threatening deterioration of the [multiple] system(s) required my full and direct attention, intervention and personal management. The aggregate critical care time was [60] minutes. This time is in addition to time spent performing reported procedures but includes the following: [x] Data Review and interpretation [x] Patient assessment and monitoring of vital signs [x] Documentation [x] Medication orders and management Disposition Plan: IMCU Total Time Spent with Patient (Minutes): 60 History Interval history: Patient seen and examined, no new complaints overnight, tolerating diet. No bleeding Hospitalist Physical - Physical exam Narrative exam: Narrative exam: General appearance: Present: no acute distress, well-nourished, obese - EENT Eyes: Present: PERRL, EOM intact ENT: hearing intact - Neck Neck: Present: normal ROM - Respiratory Respiratory effort: normal Respiratory: bilateral: diminished, Other(bibasilar fine crackles) - Cardiovascular Rhythm: regular Heart Sounds: Present: S1 & S2 - Extremities Extremities: no ischemia, pulses intact, pulses symmetrical, abnormal (Left AKA) Extremity abnormal: edema - Peripheral Assessment Right Lower Extremity Edema Type: NonPitting Edema Degree: 1+ Capillary Refill: < 3 seconds Skin Temperature: Warm Generalized Edema Type: Non-pitting Edema Degree: 1+ Capillary Refill: < 3 seconds Skin Temperature: Warm Peripheral Pulses: within normal limits - Abdominal General gastrointestinal: soft, non-distended, normal bowel sounds - Integumentary Integumentary: Present: warm, dry - Psychiatric Psychiatric: appropriate mood/affect, cooperative - Neurologic Neurologic: CNII-XII intact, moves all extremities - Allied Health Allied health notes reviewed: nursing, case management - Constitutional Vitals: Temp Pulse Resp BP Pulse Ox 97.9 F 71 9 L 125/47 94 11/11/21 07:18 11/11/21 07:00 11/11/21 07:00 11/11/21 07:00 11/11/21 07:00 General appearance: Present: no acute distress HEART Score - HEART Score Troponin: Troponin T 0.089 ng/mL (0.00-0.029) H 09/01/22 23:19 Results - Labs CBC & Chem 7: 11/11/21 05:25 11/11/21 05:25 Labs: Laboratory Last Values WBC 5.9 K/mm3 (4.5-11.0) 11/10/21 06:00 RBC 2.80 M/mm3 (3.65-5.03) L 11/10/21 06:00 Hgb 7.4 gm/dl (10.1-14.3) L 11/11/21 05:25 Hct 24.0 % (30.3-42.9) L 11/11/21 05:25 MCV 80 fl (79-97) 11/10/21 06:00 MCH 26 pg (28-32) L 11/10/21 06:00 MCHC 32 % (30-34) 11/10/21 06:00 RDW 20.5 % (13.2-15.2) H 11/10/21 06:00 Plt Count 292 K/mm3 (140-440) 11/11/21 05:25 Lymph % (Auto) 16.1 % (13.4-35.0) 11/10/21 06:00 [place] % (Auto) 9.9 % (0.0-7.3) H 11/10/21 06:00 Eos % (Auto) 4.1 % (0.0-4.3) 11/10/21 06:00 Baso % (Auto) 1.4 % (0.0-1.8) 11/10/21 06:00 Lymph # (Auto) 1.0 K/mm3 (1.2-5.4) L 11/10/21 06:00 [place] # (Auto) 0.6 K/mm3 (0.0-0.8) 11/10/21 06:00 Eos # (Auto) 0.2 K/mm3 (0.0-0.4) 11/10/21 06:00 Baso # (Auto) 0.1 K/mm3 (0.0-0.1) 11/10/21 06:00 Seg Neutrophils % 68.5 % (40.0-70.0) 11/10/21 06:00 Seg Neutrophils # 4.1 K/mm3 (1.8-7.7) 11/10/21 06:00 PT 13.6 Sec. (12.2-14.9) 11/08/21 19:42 INR 0.94 (0.87-1.13) 11/08/21 19:42 APTT 27.3 Sec. (24.2-36.6) 11/08/21 19:42 D-Dimer 825.58 ng/mlDDU (0-234) H 11/09/21 10:45 Sodium 127 mmol/L (137-145) L 11/11/21 05:25 Potassium 5.5 mmol/L (3.6-5.0) H D 11/11/21 05:25 Chloride 92.9 mmol/L (98-107) L 11/11/21 05:25 Carbon Dioxide 27 mmol/L (22-30) 11/11/21 05:25 Anion Gap 13 mmol/L 11/11/21 05:25 BUN 14 mg/dL (7-17) 11/11/21 05:25 Creatinine 0.7 mg/dL (0.6-1.2) 11/11/21 05:25 Estimated GFR > 60 ml/min 11/11/21 05:25 BUN/Creatinine Ratio 20 % 11/11/21 05:25 Glucose 122 mg/dL (65-100) H 11/11/21 05:25 POC Glucose 165 mg/dL (70-105) H 11/11/21 07:48 Lactic Acid 0.80 mmol/L (0.7-2.0) 11/08/21 23:19 Calcium 8.3 mg/dL (8.4-10.2) L 11/11/21 05:25 Phosphorus 4.70 mg/dL (2.5-4.5) H D 11/11/21 05:25 Magnesium 2.10 mg/dL (1.7-2.3) 11/11/21 05:25 Iron 12 ug/dL (37-170) L 11/10/21 20:04 TIBC 221 mcg/dL (250-450) L 11/10/21 20:04 Ferritin 50.8 ng/mL (10.0-200.0) 11/10/21 20:04 Total Bilirubin < 0.20 mg/dL (0.1-1.2) 11/10/21 04:12 Direct Bilirubin < 0.2 mg/dL (0-0.2) 11/10/21 04:12 Indirect Bilirubin 0.0 mg/dL 11/10/21 04:12 AST 9 units/L (5-40) 11/10/21 04:12 ALT 8 units/L (7-56) 11/10/21 04:12 Alkaline Phosphatase 114 units/L (35-129) 11/10/21 04:12 Lactate Dehydrogenase 99 units/L (91-180) 11/09/21 10:45 Troponin T 0.089 ng/mL (0.00-0.029) H 11/08/21 23:19 C-Reactive Protein 3.40 mg/dL (0.00-1.30) H 11/09/21 10:45 NT-Pro-B Natriuret Pep 77419 pg/mL (0-900) H 11/08/21 19:42 Total Protein 4.6 g/dL (6.3-8.2) L 11/10/21 04:12 Albumin 2.4 g/dL (3.9-5) L 11/10/21 04:12 Albumin/Globulin Ratio 1.1 % 11/10/21 04:12 Triglycerides 98 mg/dL (2-149) 11/08/21 19:42 Cholesterol 161 mg/dL (50-199) 11/08/21 19:42 LDL Cholesterol Direct 64 mg/dL (50-130) 11/08/21 19:42 HDL Cholesterol 72 mg/dL (40-59) H 11/08/21 19:42 Cholesterol/HDL Ratio 2.23 % 11/08/21 19:42 Vitamin B12 973.6 pg/mL (211-911) H 11/10/21 20:04 Procalcitonin 0.16 ng/mL (<0.15) 11/09/21 10:45 Urine Color Colorless (Yellow) 11/08/21 21:39 Urine Turbidity Clear (Clear) 11/08/21 21:39 Specific [place] (Man) 1.015 (1.003-1.030) 11/08/21 21:39 Ur Protein (Man) <30 mg dl mg/dL (Negative) 11/08/21 21:39 Ur Ketones (Man) Negative (Negative) 11/08/21 21:39 Ur Nitrite (Man) Negative (Negative) 11/08/21 21:39 Urine Bilirubin (Man) Negative (Negative) 11/08/21 21:39 Leukocyte Esterase (Man) Small (Negative) 11/08/21 21:39 Urine WBC (Auto) < 1.0 /HPF (0.0-6.0) 11/08/21 21:39 Urine RBC (Auto) < 1.0 /HPF (0.0-6.0) 11/08/21 21:39 Urine RBC (Manual) Negative (Negative) 11/08/21 21:39 Urine Mucus Few /HPF 11/08/21 21:39 Blood Type A NEGATIVE 11/10/21 11:02 Antibody Screen Negative 11/10/21 11:02 Microbiology: Microbiology 11/08/21 19:42 Peripheral/Venous Blood Culture - Preliminary NO GROWTH AFTER 48 HOURS 11/08/21 19:42 Peripheral/Venous Blood Culture - Preliminary NO GROWTH AFTER 48 HOURS Sanchez/IV: Voiding Method Indwelling Catheter Active Medications - Current Medications Current Medications: Generic Name Dose Route Start Last Admin Trade Name Freq PRN Reason Stop Dose Admin Atorvastatin Calcium 80 mg 11/09/21 22:00 11/10/21 22:56 Atorvastatin 40 Mg Tab PO 80 mg QHS CHRISTOPHER Administration Carvedilol 3.125 mg 11/09/21 22:00 11/10/21 22:56 Carvedilol 3.125 Mg Tab PO 3.125 mg BID CHRISTOPHER Administration Citalopram Hydrobromide 20 mg 11/09/21 10:00 11/10/21 10:50 Citalopram 20 Mg Tab PO 20 mg DAILY CHRISTOPHER Administration Clopidogrel Bisulfate 75 mg 11/10/21 10:00 11/10/21 10:51 Clopidogrel 75 Mg Tab PO 75 mg QDAY CHRISTOPHER Administration Dextrose 0 ml 11/08/21 23:37 Dextrose 50% In Water (25gm) 50 Ml Syringe IV Q30MIN PRN Hypoglycemia Protocol Duloxetine HCl 30 mg 11/09/21 10:00 11/10/21 22:56 Duloxetine 30 Mg Cap PO 30 mg BID CHRISTOPHER Administration Furosemide 40 mg 11/09/21 06:00 11/11/21 06:01 Furosemide 40 Mg/4 Ml Inj IV 40 mg BID@0600,1800 CHRISTOPHER Administration Gabapentin 900 mg 11/09/21 10:00 11/10/21 22:56 Gabapentin 300 Mg Cap PO 900 mg BID CHRISTOPHER Administration Insulin Human Lispro 0 unit 11/09/21 07:30 11/11/21 08:49 Insulin Lispro 100 Unit/Ml SUB-Q 2 unit ACHS CHRISTOPHER Administration Protocol Levetiracetam 500 mg 11/09/21 10:00 11/10/21 22:56 Levetiracetam 500 Mg Tab PO 500 mg BID CHRISTOPHER Administration Losartan Potassium 25 mg 11/10/21 10:00 11/10/21 10:51 Losartan 25 Mg Tab PO 25 mg QDAY CHRISTOPHER Administration Magnesium Hydroxide 30 ml 11/08/21 23:30 11/10/21 19:37 Magnesium Hydroxide (Mom) Oral Liqd Udc PO 30 ml Q4H PRN Administration Constipation Morphine Sulfate 2 mg 11/08/21 23:30 11/10/21 19:36 Morphine 2 Mg/1 Ml Inj IV 2 mg Q4H PRN Administration Pain, Moderate (4-6) Ondansetron HCl 4 mg 11/08/21 23:30 Ondansetron 4 Mg/2 Ml Inj IV Q8H PRN Nausea And Vomiting Pantoprazole Sodium 40 mg 11/09/21 10:00 11/10/21 10:50 Pantoprazole 40 Mg Tab PO 40 mg DAILY CHRISTOPHER Administration Primidone 50 mg 11/09/21 10:00 11/10/21 22:56 Primidone 50 Mg Tab PO 50 mg BID CHRISTOPHER Administration Sodium Chloride 10 ml 11/09/21 10:00 11/10/21 22:56 Sodium Chloride 0.9% 10 Ml Flush Syringe IV 10 ml BID CHRISTOPHER Administration Sodium Chloride 10 ml 11/08/21 22:26 Sodium Chloride 0.9% 10 Ml Flush Syringe IV PRN PRN LINE FLUSH Sodium Polystyrene Sulfonate 30 gm 11/11/21 08:15 11/11/21 08:49 Sodium Polystyrene 15 Gm/60 Ml Oral Liqd PO 11/11/21 12:15 30 gm ONCE@0815 CHRISTOPHER Administration Nutrition/Malnutrition Assess - Dietary Evaluation Nutrition/Malnutrition Findings: Nutrition Notes Start: 11/09/21 16:36 Freq: Status: Active Protocol: Document 11/09/21 16:36 JUSTIN (Rec: 11/09/21 16:42 JUSTIN [id number]) Nutrition Notes Need for Assessment generated from: panel builder Initial or Follow up Assessment Current Diagnosis COPD,Coronary Artery Disease, Hypertension Other Pertinent Diagnosis CHF exacerbation, Hypotension, Anemia, PVD, s/p (L) AKA Current Diet Cardiac/Consistent Labs/Tests BG 179 Pertinent Medications Lasix, Levophed gtt Height 5 ft 4 in Weight 54 kg [place] Body Weight (kg) 54.54 BMI 20.4 Weight change and time frame AdjBW for AKA: 60kg Adj BMI: 22.6 Subjective/Other Information Pt screened for skin risk ( Felipe score: 16). Pt c/o SOB for the past 3 wks. Currently on BiPap support. Burn Absent Trauma Absent Skin Integrity/Comment (L) medial buttock wound Minimum of two criteria No #1 Nutrition Diagnosis Predicted suboptimal energy intake Etiology SOB As Evidenced by Signs and Symptoms pt on and off BiPap support Is patient on ventilator? No Is Patient Ambulatory and/or Out of Bed No REE-([facility]-confined to bed) 1260.072 Kcal/Kg value to use for calculation 25 Approximate Energy Requirements Using 1350 kcal/Kg Calculation Used for Recommendations Kcal/kg Additional Notes Pro needs 1.2-2g/k-108g/ day Fluid needs per MD. Nutrition Intervention Change Diet Order: Continue current diet order Goal #1 PO intake to meet at least 75% energy and pro needs Anticipated Discharge Needs: Unable to identify at this time Follow-Up By: 11/13/21 Additional Comments F/U: intakes
[2021-11-11] MEDS: GABAPENTIN 300 MG CAP PO SCH ×2 (10:22→21:01)
[2021-11-11] MEDS: CLOPIDOGREL 75 MG TAB PO SCH (10:22)
[2021-11-11] MEDS: CITALOPRAM 20 MG TAB PO SCH (10:22)
[2021-11-11] MEDS: LOSARTAN 25 MG TAB PO SCH (10:22)
[2021-11-11] MEDS: PRIMIDONE 50 MG TAB PO SCH ×2 (10:22→23:27)
[2021-11-11] MEDS: DULoxetine 30 MG CAP PO SCH ×2 (10:22→21:01)
[2021-11-11] MEDS: PANTOPRAZOLE 40 MG TAB PO SCH (10:22)
[2021-11-11] MEDS: levETIRAcetam 500 MG TAB PO SCH ×2 (10:23→21:01)
[2021-11-11] MEDS: carvediloL 3.125 MG TAB PO SCH ×2 (10:23→21:01)
--- NOTE | 2021-11-11 11:34 | Progress Note ---
Assessment and Plan Patient is a 71-year-old female with past medical history of coronary artery disease s/p CABG 2014, hypertension, COPD, peripheral vascular disease s/p left lower extremity AKA, GI ulcers, anemia, and current smoker who reported to the ED with a complaint of shortness of breath, nausea, and vomiting x1 to 2 weeks. Acute respiratory failure-pulmonology follow Acute on chronic HFrEF Abdominal pain/nausea/vomiting- CT abd pending NSTEMI suspect type II Ischemic cardiomyopathy small PE Anemia COPD-pulmonology following CAD s/p CABG 2014 Hypertension Peripheral vascular disease s/p AKA History of GI ulcers Tobacco abuse Elevated D-dimer- CTA chest pending Echo 10/05/2021-EF 35 to 40%. Regional wall motion abnormalities. Right ventricle is normal in size with normal ventricle ventricular systolic function. Severe mitral regurgitation. Mild tricuspid regurgitation Cardiac cath 10/15/2021- 2-vessel CAD with diffusely diseased LAD and left circumflex Widely patent REGALADO to mid LAD and SVG toOMbypass graftsModerately reduced LV systolic function with ejection fraction 30 to 35% and associated moderate, hypokinesis Mildly elevated LVEDP Normal systemic arterial pressures. Recommend aggressive medical therapy rec: Awaiting vascular ultrasound and on elquis an dmonitor bp, pt has hyponaterimia and hyperkalemia stop iv lasix and monitor labs Subjective Date of service: 11/11/21 Principal diagnosis: Acute PE; Hypotension; AHRF; AE-CHF; Hypotension; NSTEMI; Anemia Interval history: sob is better Objective Vital Signs Temp Pulse Pulse Resp BP Pulse Ox 11/11/21 10:23 74 136/76 11/11/21 10:22 74 136/76 11/11/21 07:18 97.9 F 11/11/21 07:00 71 9 L 125/47 94 11/11/21 06:00 83 17 135/62 92 11/11/21 05:00 74 10 L 127/44 94 11/11/21 04:00 72 8 L 124/55 93 11/11/21 03:40 72 11/11/21 03:00 71 10 L 119/52 95 11/11/21 02:00 69 10 L 107/75 97 11/11/21 01:00 68 9 L 107/75 96 11/11/21 00:00 77 13 117/63 95 11/10/21 23:00 76 8 L 140/54 96 11/10/21 22:56 75 135/51 11/10/21 22:00 78 11 L 135/51 94 11/10/21 21:00 83 12 134/56 92 11/10/21 20:15 86 11/10/21 20:06 14 11/10/21 20:00 87 87 12 147/64 94 11/10/21 19:51 90 11/10/21 19:36 25 H 11/10/21 19:08 95 H 17 147/64 92 11/10/21 19:00 95 H 18 147/64 91 11/10/21 17:46 94 H 19 164/77 91 11/10/21 17:30 93 H 17 164/77 91 11/10/21 17:16 93 H 16 164/77 91 11/10/21 17:00 102 H 15 164/77 87 11/10/21 16:46 91 H 16 135/65 89 11/10/21 16:30 90 18 135/65 89 11/10/21 16:16 88 15 135/65 90 11/10/21 16:00 89 79 19 135/65 90 11/10/21 15:46 86 15 133/69 91 11/10/21 15:30 89 22 91 11/10/21 15:16 87 19 89 11/10/21 15:13 87 19 91 11/10/21 14:45 88 18 134/59 92 11/10/21 14:31 86 23 134/59 93 11/10/21 14:15 88 21 134/59 93 11/10/21 14:00 85 20 135/59 93 11/10/21 13:45 84 18 134/59 94 11/10/21 13:31 82 26 H 134/59 94 11/10/21 13:15 81 17 134/59 94 11/10/21 13:00 86 21 134/59 95 11/10/21 12:46 95 11/10/21 12:31 80 17 144/93 96 11/10/21 12:15 85 24 144/93 96 11/10/21 12:00 83 77 24 144/93 99 11/10/21 11:45 84 23 134/92 94 - Physical Examination General: No Apparent Distress HEENT: Positive: PERRL, Mucus Membranes Moist Neck: Positive: trachea midline Cardiac: Positive: Reg Rate and Rhythm Lungs: Positive: clear to auscultation Neuro: Positive: Grossly Intact Abdomen: Positive: Tender Skin: Negative: Rash, Suspicious Lesions, Ulceration Extremities: Present: upper extr. pulses, Other (right leg no edema) - Labs and Meds CBC 11/10/21 11/11/21 Range/Units 16:03 05:25 Hgb 7.5 L 7.4 L (10.1-14.3) gm/dl Hct 24.4 L 24.0 L (30.3-42.9) % Plt Count 292 (140-440) K/mm3 Comprehensive Metabolic Panel 11/11/21 Range/Units 05:25 Sodium 127 L (137-145) mmol/L Potassium 5.5 H D (3.6-5.0) mmol/L Chloride 92.9 L (98-107) mmol/L Carbon Dioxide 27 (22-30) mmol/L BUN 14 (7-17) mg/dL Creatinine 0.7 (0.6-1.2) mg/dL Glucose 122 H (65-100) mg/dL Calcium 8.3 L (8.4-10.2) mg/dL - Imaging and Cardiology EKG: report reviewed, image reviewed Echo: report reviewed Cardiac cath: report reviewed - Telemetry EKG Rhythm: Sinus Rhythm - EKG Sinus rhythms and dysrhythmias: sinus rhythm Repolarization changes or abnormalities: nonspecific abnormality, ST segment, and/or T wave - Allied health notes Allied health notes reviewed: nursing
[2021-11-11] MEDS: DOCUSATE SODIUM 100 MG/10 ML ORAL LIQD PO SCH ×2 (12:47→21:01)
[2021-11-11 13:13] LABS: Hematocrit 23.8 % (30.3-42.9); Hemoglobin 7.4 gm/dl (10.1-14.3); Mean Corpuscular HGB Conc 31 % (30-34); Mean Corpuscular Volume 79 fl (79-97); Platelet Count 307 K/mm3 (140-440); Red Blood Count 3.01 M/mm3 (3.65-5.03)
[2021-11-11 13:25] LABS: INR 0.95 (0.87-1.13)
[2021-11-11 13:26] LABS: Partial Thromboplastin Time 27.6 Sec. (24.2-36.6)
--- NOTE | 2021-11-11 14:13 | Progress Note ---
Assessment and Plan Acute P.E. Acute hypoxemic respiratory failure Acute exacerbation of congestive heart failure Hypotension at presentation Non-ST elevation myocardial infarction Nausea and vomiting Abdominal pain Anemia that is normocytic Hyponatremia Adult failure to thrive - to begin Eliquis tonight - trend H&H in short term - continue PPI therapy - follow lower extremity dopplers +/- IVC filter placement - GI recommendations noted - continue to wean supplemental oxygen for target O2 sat's > 90% acutely - aspiration precautions - continue bronchodilators with pulmonary hygiene per RT - avoid nephrotoxins, renally dose all medications - continue to avoid benzodiazepine's, reduce the possibility of delirium - AB's per ID rec's - prn analgesia per CPOT score - Maintenance of sleep-wake cycle, avoid delirium - G.I. & VTE prophylaxis - PT/OT/ROM exercises - continue mobility protocols for pressure ulcer prophylaxis - Monitor hemodynamics closely - continue other care per attending / other consultants - discharge planning ongoing concurrently .... Re-evaluate in am & prn .....ok to transfer to medical floor Subjective Date of service: 11/11/21 Principal diagnosis: Acute PE; Hypotension; AHRF; AE-CHF; Hypotension; NSTEMI; Anemia Interval history: Patient is seen today for: Acute hypoxemic respiratory failure; Acute PE; AE- CHF; Hypotension; NSTEMI; Anemia Seen and examined at bedside; 24hour events reviewed; nursing and respiratory care staff consulted; no adverse overnight events reported to me; resting peacefully in bed; no acute GIB overnight; lower extremity dopplers pending; denies acute chest pain or SOB; seen by GI team and no endoscopy planned Objective Vital Signs - 12hr 11/11/21 11/11/21 11/11/21 03:00 03:40 04:00 Temperature Pulse Rate 71 72 72 Pulse Rate [ From Monitor] Respiratory 10 L 8 L Rate Blood Pressure 119/52 124/55 O2 Sat by Pulse 95 93 Oximetry 11/11/21 11/11/21 11/11/21 05:00 06:00 07:00 Temperature Pulse Rate 74 83 71 Pulse Rate [ From Monitor] Respiratory 10 L 17 9 L Rate Blood Pressure 127/44 135/62 125/47 O2 Sat by Pulse 94 92 94 Oximetry 11/11/21 11/11/21 11/11/21 07:18 08:00 09:00 Temperature 97.9 F Pulse Rate 73 82 Pulse Rate [ 80 From Monitor] Respiratory 9 L 12 Rate Blood Pressure 136/54 145/67 O2 Sat by Pulse 93 96 Oximetry 11/11/21 11/11/21 11/11/21 10:00 10:22 10:23 Temperature Pulse Rate 79 74 74 Pulse Rate [ From Monitor] Respiratory 16 Rate Blood Pressure 136/76 136/76 136/76 O2 Sat by Pulse 92 Oximetry 11/11/21 11/11/21 11/11/21 11:00 12:00 12:10 Temperature Pulse Rate 73 76 Pulse Rate [ 85 From Monitor] Respiratory 11 L 16 15 Rate Blood Pressure 125/52 O2 Sat by Pulse 96 96 96 Oximetry 11/11/21 12:19 Temperature 98.2 F Pulse Rate Pulse Rate [ From Monitor] Respiratory Rate Blood Pressure O2 Sat by Pulse Oximetry Constitutional: no acute distress, other (elderly thin female with mildly incr eased respiratory effort at rest) Eyes: non-icteric ENT: oropharynx moist Neck: supple, no lymphadenopathy, no JVD Effort: mildly labored Ascultation: Bilateral: rales (bases) Percussion: Bilateral: not dull Cardiovascular: regular rate and rhythm Gastrointestinal: normoactive bowel sounds, soft, non-tender, non-distended Integumentary: normal Extremities: no cyanosis, pink and warm, pulses normal, edema (trace) Neurologic: non-focal exam, pupils equal and round, CN II-XII normal, motor strength normal and Psychiatric: mood appropriate, affect normal CBC and BMP: 11/11/21 12:46 11/12/21 05:15 ABG, PT/INR, D-dimer: PT/INR, D-dimer PT 13.7 Sec. (12.2-14.9) 11/11/21 12:46 INR 0.95 (0.87-1.13) 11/11/21 12:46 D-Dimer 825.58 ng/mlDDU (0-234) H 11/09/21 10:45 Abnormal lab findings: Abnormal Labs 11/08/21 11/08/21 11/08/21 19:42 19:42 19:42 RBC 3.02 L Hgb 7.6 L Hct 24.3 L MCH 25 L RDW 21.2 H Lymph % (Auto) 8.9 L Perry % (Auto) Lymph # (Auto) 0.7 L Seg Neutrophils % 86.2 H D-Dimer Sodium 129 L Potassium Chloride 94.6 L Carbon Dioxide Creatinine 0.5 L Glucose 152 H POC Glucose Calcium 8.2 L Phosphorus Magnesium Iron TIBC Alkaline Phosphatase 151 H Troponin T 0.111 H* C-Reactive Protein NT-Pro-B Natriuret Pep Total Protein 5.4 L Albumin 3.0 L HDL Cholesterol 72 H Vitamin B12 11/08/21 11/08/21 11/09/21 19:42 23:19 01:29 RBC Hgb Hct MCH RDW Lymph % (Auto) Perry % (Auto) Lymph # (Auto) Seg Neutrophils % D-Dimer Sodium Potassium Chloride Carbon Dioxide Creatinine Glucose POC Glucose 146 H Calcium Phosphorus Magnesium Iron TIBC Alkaline Phosphatase Troponin T 0.089 H C-Reactive Protein NT-Pro-B Natriuret Pep 18165 H Total Protein Albumin HDL Cholesterol Vitamin B12 11/09/21 11/09/21 11/09/21 04:00 04:00 07:28 RBC 3.17 L Hgb 7.8 L Hct 25.9 L MCH 25 L RDW 20.7 H Lymph % (Auto) 10.0 L Perry % (Auto) Lymph # (Auto) 0.8 L Seg Neutrophils % 80.0 H D-Dimer Sodium 134 L Potassium Chloride Carbon Dioxide 21 L Creatinine 0.5 L Glucose 179 H POC Glucose 198 H Calcium 8.1 L Phosphorus Magnesium Iron TIBC Alkaline Phosphatase Troponin T C-Reactive Protein NT-Pro-B Natriuret Pep Total Protein Albumin HDL Cholesterol Vitamin B12 11/09/21 11/09/21 11/09/21 10:45 10:45 11:34 RBC Hgb Hct MCH RDW Lymph % (Auto) Perry % (Auto) Lymph # (Auto) Seg Neutrophils % D-Dimer 825.58 H Sodium Potassium Chloride Carbon Dioxide Creatinine Glucose POC Glucose 133 H Calcium Phosphorus Magnesium Iron TIBC Alkaline Phosphatase Troponin T C-Reactive Protein 3.40 H NT-Pro-B Natriuret Pep Total Protein Albumin HDL Cholesterol Vitamin B12 11/09/21 11/09/21 11/10/21 17:52 21:31 00:13 RBC Hgb Hct MCH RDW Lymph % (Auto) Perry % (Auto) Lymph # (Auto) Seg Neutrophils % D-Dimer Sodium Potassium Chloride Carbon Dioxide Creatinine Glucose POC Glucose 158 H 62 L 160 H Calcium Phosphorus Magnesium Iron TIBC Alkaline Phosphatase Troponin T C-Reactive Protein NT-Pro-B Natriuret Pep Total Protein Albumin HDL Cholesterol Vitamin B12 11/10/21 11/10/21 11/10/21 04:00 04:12 06:00 RBC 2.79 L 2.80 L Hgb 6.8 L 7.1 L Hct 22.5 L 22.4 L MCH 25 L 26 L RDW 20.8 H 20.5 H Lymph % (Auto) Perry % (Auto) 9.9 H Lymph # (Auto) 1.0 L Seg Neutrophils % D-Dimer Sodium 133 L Potassium Chloride Carbon Dioxide Creatinine Glucose 138 H POC Glucose Calcium 8.2 L Phosphorus Magnesium 1.40 L Iron TIBC Alkaline Phosphatase Troponin T C-Reactive Protein NT-Pro-B Natriuret Pep Total Protein 4.6 L Albumin 2.4 L HDL Cholesterol Vitamin B12 11/10/21 11/10/21 11/10/21 08:14 11:10 16:03 RBC Hgb 7.5 L Hct 24.4 L MCH RDW Lymph % (Auto) Perry % (Auto) Lymph # (Auto) Seg Neutrophils % D-Dimer Sodium Potassium Chloride Carbon Dioxide Creatinine Glucose POC Glucose 152 H 202 H Calcium Phosphorus Magnesium Iron TIBC Alkaline Phosphatase Troponin T C-Reactive Protein NT-Pro-B Natriuret Pep Total Protein Albumin HDL Cholesterol Vitamin B12 11/10/21 11/10/21 11/10/21 17:01 20:04 20:04 RBC Hgb Hct MCH RDW Lymph % (Auto) Perry % (Auto) Lymph # (Auto) Seg Neutrophils % D-Dimer Sodium Potassium Chloride Carbon Dioxide Creatinine Glucose POC Glucose 142 H Calcium Phosphorus Magnesium Iron 12 L TIBC 221 L Alkaline Phosphatase Troponin T C-Reactive Protein NT-Pro-B Natriuret Pep Total Protein Albumin HDL Cholesterol Vitamin B12 973.6 H 11/10/21 11/11/21 11/11/21 23:03 05:25 05:25 RBC Hgb 7.4 L Hct 24.0 L MCH RDW Lymph % (Auto) Perry % (Auto) Lymph # (Auto) Seg Neutrophils % D-Dimer Sodium 127 L Potassium 5.5 H D Chloride 92.9 L Carbon Dioxide Creatinine Glucose 122 H POC Glucose 181 H Calcium 8.3 L Phosphorus 4.70 H D Magnesium Iron TIBC Alkaline Phosphatase Troponin T C-Reactive Protein NT-Pro-B Natriuret Pep Total Protein Albumin HDL Cholesterol Vitamin B12 11/11/21 11/11/21 07:48 12:46 RBC 3.01 L Hgb 7.4 L Hct 23.8 L MCH 25 L RDW 21.0 H Lymph % (Auto) Perry % (Auto) Lymph # (Auto) Seg Neutrophils % D-Dimer Sodium Potassium Chloride Carbon Dioxide Creatinine Glucose POC Glucose 165 H Calcium Phosphorus Magnesium Iron TIBC Alkaline Phosphatase Troponin T C-Reactive Protein NT-Pro-B Natriuret Pep Total Protein Albumin HDL Cholesterol Vitamin B12 Prior PFT's, U/S of legs: pending Allied health notes reviewed: nursing
--- NOTE | 2021-11-11 14:33 | Progress Note ---
Assessment and Plan 1. Anemialongstanding. Hemoglobin stable at 7.4. No evidence of ongoing bleeding. Recent upper and lower endoscopy 1 month ago. Empiric PPI daily Iron/TIBC equal to . Ferritin normal at 51. B12 normal at 973. Check stool for occult blood Would proceed with anticoagulation if needed. Would refer to hematology for further evaluation of anemia, possibly as an outpatient. Subjective Date of service: 11/11/21 Principal diagnosis: Acute PE; Hypotension; AHRF; AE-CHF; Hypotension; NSTEMI; Anemia Interval history: Patient feels better, and breathing better. No GI complaints. Objective - Constitutional Vitals: Vital Signs - 12hr 11/11/21 11/11/21 11/11/21 03:00 03:40 04:00 Temperature Pulse Rate 71 72 72 Pulse Rate [ From Monitor] Respiratory 10 L 8 L Rate Blood Pressure 119/52 124/55 O2 Sat by Pulse 95 93 Oximetry 11/11/21 11/11/21 11/11/21 05:00 06:00 07:00 Temperature Pulse Rate 74 83 71 Pulse Rate [ From Monitor] Respiratory 10 L 17 9 L Rate Blood Pressure 127/44 135/62 125/47 O2 Sat by Pulse 94 92 94 Oximetry 11/11/21 11/11/21 11/11/21 07:18 08:00 09:00 Temperature 97.9 F Pulse Rate 73 82 Pulse Rate [ 80 From Monitor] Respiratory 9 L 12 Rate Blood Pressure 136/54 145/67 O2 Sat by Pulse 93 96 Oximetry 11/11/21 11/11/21 11/11/21 10:00 10:22 10:23 Temperature Pulse Rate 79 74 74 Pulse Rate [ From Monitor] Respiratory 16 Rate Blood Pressure 136/76 136/76 136/76 O2 Sat by Pulse 92 Oximetry 11/11/21 11/11/21 11/11/21 11:00 12:00 12:10 Temperature Pulse Rate 73 76 Pulse Rate [ 85 From Monitor] Respiratory 11 L 16 15 Rate Blood Pressure 125/52 O2 Sat by Pulse 96 96 96 Oximetry 11/11/21 12:19 Temperature 98.2 F Pulse Rate Pulse Rate [ From Monitor] Respiratory Rate Blood Pressure O2 Sat by Pulse Oximetry General appearance: Present: no acute distress - EENT Eyes: PERRL, EOM intact ENT: hearing intact - Respiratory Respiratory effort: normal - Gastrointestinal General gastrointestinal: Present: soft, non-tender - Labs CBC & Chem 7: 11/11/21 12:46 11/11/21 12:46 Labs: Abnormal lab results 11/10/21 11/10/21 11/10/21 Range/Units 08:14 11:10 16:03 RBC (3.65-5.03) M/mm3 Hgb 7.5 L (10.1-14.3) gm/dl Hct 24.4 L (30.3-42.9) % MCH (28-32) pg RDW (13.2-15.2) % Sodium (137-145) mmol/L Potassium (3.6-5.0) mmol/L Chloride (98-107) mmol/L Glucose (65-100) mg/dL POC Glucose 152 H 202 H (70-105) mg/dL Calcium (8.4-10.2) mg/dL Phosphorus (2.5-4.5) mg/dL Iron (37-170) ug/dL TIBC (250-450) mcg/dL Vitamin B12 (211-911) pg/mL 11/10/21 11/10/21 11/10/21 Range/Units 17:01 20:04 20:04 RBC (3.65-5.03) M/mm3 Hgb (10.1-14.3) gm/dl Hct (30.3-42.9) % MCH (28-32) pg RDW (13.2-15.2) % Sodium (137-145) mmol/L Potassium (3.6-5.0) mmol/L Chloride (98-107) mmol/L Glucose (65-100) mg/dL POC Glucose 142 H (70-105) mg/dL Calcium (8.4-10.2) mg/dL Phosphorus (2.5-4.5) mg/dL Iron 12 L (37-170) ug/dL TIBC 221 L (250-450) mcg/dL Vitamin B12 973.6 H (211-911) pg/mL 11/10/21 11/11/21 11/11/21 Range/Units 23:03 05:25 05:25 RBC (3.65-5.03) M/mm3 Hgb 7.4 L (10.1-14.3) gm/dl Hct 24.0 L (30.3-42.9) % MCH (28-32) pg RDW (13.2-15.2) % Sodium 127 L (137-145) mmol/L Potassium 5.5 H D (3.6-5.0) mmol/L Chloride 92.9 L (98-107) mmol/L Glucose 122 H (65-100) mg/dL POC Glucose 181 H (70-105) mg/dL Calcium 8.3 L (8.4-10.2) mg/dL Phosphorus 4.70 H D (2.5-4.5) mg/dL Iron (37-170) ug/dL TIBC (250-450) mcg/dL Vitamin B12 (211-911) pg/mL 11/11/21 11/11/21 Range/Units 07:48 12:46 RBC 3.01 L (3.65-5.03) M/mm3 Hgb 7.4 L (10.1-14.3) gm/dl Hct 23.8 L (30.3-42.9) % MCH 25 L (28-32) pg RDW 21.0 H (13.2-15.2) % Sodium (137-145) mmol/L Potassium (3.6-5.0) mmol/L Chloride (98-107) mmol/L Glucose (65-100) mg/dL POC Glucose 165 H (70-105) mg/dL Calcium (8.4-10.2) mg/dL Phosphorus (2.5-4.5) mg/dL Iron (37-170) ug/dL TIBC (250-450) mcg/dL Vitamin B12 (211-911) pg/mL Medications & Allergies - Medications Allergies/Adverse Reactions: Allergies acetaminophen [From Tylenol] Allergy (Verified 11/09/21 05:13) CAUSES ISSUE WITH LIVER Antihistamines - Alkylamine Allergy (Verified 11/09/21 05:13) Shortness of Breath codeine Allergy (Verified 11/09/21 05:13) Headache Penicillins Allergy (Verified 11/09/21 05:13) Angioedema Sulfa (Sulfonamide Antibiotics) Allergy (Verified 11/09/21 05:13) Rash ANTIBIOTICS Allergy (Severe, Uncoded 11/09/21 05:13) EXTREME STOMACH PAIN Home Medications: Home Medications Medication Instructions Recorded Confirmed Last Taken Type DULoxetine [Cymbalta] 30 mg PO BID 10/06/21 10/06/21 Unknown History Omeprazole 40 mg PO DAILY 10/06/21 10/06/21 Unknown History Primidone [Mysoline] 50 mg PO BID 10/06/21 10/06/21 Unknown History glipiZIDE [Glucotrol] 10 mg PO DAILY 10/06/21 10/06/21 Unknown History Citalopram [Celexa] 20 mg PO DAILY 30 Days #30 tablet 10/09/21 Unknown Rx Furosemide [Lasix] 40 mg PO DAILY 30 Days #30 tab 10/09/21 Unknown Rx Gabapentin 900 mg PO BID 30 Days #180 capsule 10/09/21 Unknown Rx Metformin HCl [metFORMIN] 1,000 mg PO BID 30 Days #60 tab 10/09/21 Unknown Rx Rosuvastatin (Nf) [Crestor] 10 mg PO QHS 30 Days #60 tab 10/09/21 Unknown Rx levETIRAcetam [Keppra TAB] 500 mg PO BID 30 Days #60 tab 10/09/21 Unknown Rx propranoloL [Inderal] 10 mg PO TID 30 Days #90 tab 10/09/21 Unknown Rx Active Medications: Generic Name Dose Route Start Last Admin Trade Name Freq PRN Reason Stop Dose Admin Apixaban 5 mg 11/11/21 22:00 Apixaban 5 Mg Tab PO Q12HR CHRISTOPHER Protocol Atorvastatin Calcium 80 mg 11/09/21 22:00 11/10/21 22:56 Atorvastatin 40 Mg Tab PO 80 mg QHS CHRISTOPHER Administration Carvedilol 3.125 mg 11/09/21 22:00 11/11/21 10:23 Carvedilol 3.125 Mg Tab PO 3.125 mg BID CHRISTOPHER Administration Citalopram Hydrobromide 20 mg 11/09/21 10:00 11/11/21 10:22 Citalopram 20 Mg Tab PO 20 mg DAILY CHRISTOPHER Administration Dextrose 0 ml 11/08/21 23:37 Dextrose 50% In Water (25gm) 50 Ml Syringe IV Q30MIN PRN Hypoglycemia Protocol Docusate Sodium 100 mg 11/11/21 11:00 11/11/21 12:47 Docusate Sodium 100 Mg/10 Ml Oral Liqd PO 100 mg BID CHRISTOPHER Administration Duloxetine HCl 30 mg 11/09/21 10:00 11/11/21 10:22 Duloxetine 30 Mg Cap PO 30 mg BID CHRISTOPHER Administration Ferrous Gluconate 324 mg 11/11/21 14:00 Ferrous Gluconate 324 Mg Tab PO TID CHRISTOPHER Furosemide 40 mg 11/12/21 10:00 Furosemide 40 Mg Tab PO QDAY CHRISTOPHER Gabapentin 900 mg 11/09/21 10:00 11/11/21 10:22 Gabapentin 300 Mg Cap PO 900 mg BID CHRISTOPHER Administration Insulin Human Lispro 0 unit 11/09/21 07:30 11/11/21 12:47 Insulin Lispro 100 Unit/Ml SUB-Q 4 unit ACHS CHRISTOPHER Administration Protocol Levetiracetam 500 mg 11/09/21 10:00 11/11/21 10:23 Levetiracetam 500 Mg Tab PO 500 mg BID CHRISTOPHER Administration Losartan Potassium 25 mg 11/10/21 10:00 11/11/21 10:22 Losartan 25 Mg Tab PO 25 mg QDAY CHRISTOPHER Administration Magnesium Hydroxide 30 ml 11/08/21 23:30 11/10/21 19:37 Magnesium Hydroxide (Mom) Oral Liqd Udc PO 30 ml Q4H PRN Administration Constipation Morphine Sulfate 2 mg 11/08/21 23:30 11/10/21 19:36 Morphine 2 Mg/1 Ml Inj IV 2 mg Q4H PRN Administration Pain, Moderate (4-6) Ondansetron HCl 4 mg 11/08/21 23:30 Ondansetron 4 Mg/2 Ml Inj IV Q8H PRN Nausea And Vomiting Pantoprazole Sodium 40 mg 11/09/21 10:00 11/11/21 10:22 Pantoprazole 40 Mg Tab PO 40 mg DAILY CHRISTOPHER Administration Primidone 50 mg 11/09/21 10:00 11/11/21 10:22 Primidone 50 Mg Tab PO 50 mg BID CHRISTOPHER Administration Sodium Chloride 10 ml 11/09/21 10:00 11/11/21 10:23 Sodium Chloride 0.9% 10 Ml Flush Syringe IV 10 ml BID CHRISTOPHER Administration Sodium Chloride 10 ml 11/08/21 22:26 Sodium Chloride 0.9% 10 Ml Flush Syringe IV PRN PRN LINE FLUSH HEART Score - HEART Score Troponin: Troponin T 0.089 ng/mL (0.00-0.029) H 11/08/21 23:19
--- NOTE | 2021-11-11 15:49 | Progress Note ---
Assessment and Plan 71-year-old female with anemia and small subsegmental pulmonary embolism. 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 This is for PVD with gangrene. Patient still smokes. Noted GI note that anticoagulation is acceptable in this patient. Had superficial duodenitis on prior endoscopy performed 1 month ago. GI managing this issue with PPI. Recommend anticoagulation for minimum of 3 months, but likely some form of anticoagulation for life. Recommend against loading dose given superficial duodenitis and only subsegmental pulmonary embolism. Eliquis 5 mg p.o. twice daily. DVT ultrasound of the lower extremities pending. Reordered ultrasound as stat as this has not been performed in over 24 hours. Ultrasound will be helpful for future monitoring. Biggest risk factor for DVT is immobility which will likely not be changing anytime soon as this is due to left above-knee amputation. Nonmodifiable risk factors for DVT highly predict recurrent DVT. Once can ambulate with left [id number] prosthesis, lifelong anticoagulation can be reconsidered. Otherwise, will likely need some sort of anticoagulation for life (ie, can be transitioned to half dose anticoagulation after 3 months). Can followup with [facility] as they performed her amputation earlier. Subjective Date of service: 11/11/21 Principal diagnosis: Acute PE; Hypotension; AHRF; AE-CHF; Hypotension; NSTEMI; Anemia Interval history: No shortness of breath. Off oxygen. Speaking without issue. Has left above- knee amputation performed in May of this year secondary to PVD with gangrene. Nonpalpable right pedal pulses. No significant lower extremity discomfort. Objective - Constitutional Vitals: Vital Signs - 12hr 11/11/21 11/11/21 11/11/21 04:00 05:00 06:00 Temperature Pulse Rate 72 74 83 Pulse Rate [ From Monitor] Respiratory 8 L 10 L 17 Rate Blood Pressure 124/55 127/44 135/62 O2 Sat by Pulse 93 94 92 Oximetry 11/11/21 11/11/21 11/11/21 07:00 07:18 08:00 Temperature 97.9 F Pulse Rate 71 73 Pulse Rate [ 80 From Monitor] Respiratory 9 L 9 L Rate Blood Pressure 125/47 136/54 O2 Sat by Pulse 94 93 Oximetry 11/11/21 11/11/21 11/11/21 09:00 10:00 10:22 Temperature Pulse Rate 82 79 74 Pulse Rate [ From Monitor] Respiratory 12 16 Rate Blood Pressure 145/67 136/76 136/76 O2 Sat by Pulse 96 92 Oximetry 11/11/21 11/11/21 11/11/21 10:23 11:00 12:00 Temperature Pulse Rate 74 73 Pulse Rate [ 85 From Monitor] Respiratory 11 L 16 Rate Blood Pressure 136/76 125/52 O2 Sat by Pulse 96 96 Oximetry 11/11/21 11/11/21 11/11/21 12:10 12:19 13:00 Temperature 98.2 F Pulse Rate 76 76 Pulse Rate [ From Monitor] Respiratory 15 14 Rate Blood Pressure 132/52 O2 Sat by Pulse 96 95 Oximetry 11/11/21 14:00 Temperature Pulse Rate 77 Pulse Rate [ From Monitor] Respiratory 12 Rate Blood Pressure 141/55 O2 Sat by Pulse 97 Oximetry General appearance: Present: no acute distress - EENT Eyes: EOM intact ENT: hearing intact - Respiratory Respiratory effort: normal Extremities: normal temperature, normal color, abnormal (Left above-knee amputation well-healed) Extremity abnormal: pulses diminished - Gastrointestinal General gastrointestinal: Present: soft, non-tender - Psychiatric Psychiatric: appropriate mood/affect, cooperative - Labs CBC & Chem 7: 11/11/21 12:46 11/11/21 12:46 Labs: Abnormal lab results 11/10/21 11/10/21 11/10/21 Range/Units 08:14 11:10 16:03 RBC (3.65-5.03) M/mm3 Hgb 7.5 L (10.1-14.3) gm/dl Hct 24.4 L (30.3-42.9) % MCH (28-32) pg RDW (13.2-15.2) % Sodium (137-145) mmol/L Potassium (3.6-5.0) mmol/L Chloride (98-107) mmol/L Glucose (65-100) mg/dL POC Glucose 152 H 202 H (70-105) mg/dL Calcium (8.4-10.2) mg/dL Phosphorus (2.5-4.5) mg/dL Iron (37-170) ug/dL TIBC (250-450) mcg/dL Vitamin B12 (211-911) pg/mL 11/10/21 11/10/21 11/10/21 Range/Units 17:01 20:04 20:04 RBC (3.65-5.03) M/mm3 Hgb (10.1-14.3) gm/dl Hct (30.3-42.9) % MCH (28-32) pg RDW (13.2-15.2) % Sodium (137-145) mmol/L Potassium (3.6-5.0) mmol/L Chloride (98-107) mmol/L Glucose (65-100) mg/dL POC Glucose 142 H (70-105) mg/dL Calcium (8.4-10.2) mg/dL Phosphorus (2.5-4.5) mg/dL Iron 12 L (37-170) ug/dL TIBC 221 L (250-450) mcg/dL Vitamin B12 973.6 H (211-911) pg/mL 11/10/21 11/11/21 11/11/21 Range/Units 23:03 05:25 05:25 RBC (3.65-5.03) M/mm3 Hgb 7.4 L (10.1-14.3) gm/dl Hct 24.0 L (30.3-42.9) % MCH (28-32) pg RDW (13.2-15.2) % Sodium 127 L (137-145) mmol/L Potassium 5.5 H D (3.6-5.0) mmol/L Chloride 92.9 L (98-107) mmol/L Glucose 122 H (65-100) mg/dL POC Glucose 181 H (70-105) mg/dL Calcium 8.3 L (8.4-10.2) mg/dL Phosphorus 4.70 H D (2.5-4.5) mg/dL Iron (37-170) ug/dL TIBC (250-450) mcg/dL Vitamin B12 (211-911) pg/mL 11/11/21 11/11/21 Range/Units 07:48 12:46 RBC 3.01 L (3.65-5.03) M/mm3 Hgb 7.4 L (10.1-14.3) gm/dl Hct 23.8 L (30.3-42.9) % MCH 25 L (28-32) pg RDW 21.0 H (13.2-15.2) % Sodium (137-145) mmol/L Potassium (3.6-5.0) mmol/L Chloride (98-107) mmol/L Glucose (65-100) mg/dL POC Glucose 165 H (70-105) mg/dL Calcium (8.4-10.2) mg/dL Phosphorus (2.5-4.5) mg/dL Iron (37-170) ug/dL TIBC (250-450) mcg/dL Vitamin B12 (211-911) pg/mL Medications & Allergies - Medications Allergies/Adverse Reactions: Allergies acetaminophen [From Tylenol] Allergy (Verified 11/09/21 05:13) CAUSES ISSUE WITH LIVER Antihistamines - Alkylamine Allergy (Verified 11/09/21 05:13) Shortness of Breath codeine Allergy (Verified 11/09/21 05:13) Headache Penicillins Allergy (Verified 11/09/21 05:13) Angioedema Sulfa (Sulfonamide Antibiotics) Allergy (Verified 11/09/21 05:13) Rash ANTIBIOTICS Allergy (Severe, Uncoded 11/09/21 05:13) EXTREME STOMACH PAIN Home Medications: Home Medications Medication Instructions Recorded Confirmed Last Taken Type DULoxetine [Cymbalta] 30 mg PO BID 10/06/21 10/06/21 Unknown History Omeprazole 40 mg PO DAILY 10/06/21 10/06/21 Unknown History Primidone [Mysoline] 50 mg PO BID 10/06/21 10/06/21 Unknown History glipiZIDE [Glucotrol] 10 mg PO DAILY 10/06/21 10/06/21 Unknown History Citalopram [Celexa] 20 mg PO DAILY 30 Days #30 tablet 10/09/21 Unknown Rx Furosemide [Lasix] 40 mg PO DAILY 30 Days #30 tab 10/09/21 Unknown Rx Gabapentin 900 mg PO BID 30 Days #180 capsule 10/09/21 Unknown Rx Metformin HCl [metFORMIN] 1,000 mg PO BID 30 Days #60 tab 10/09/21 Unknown Rx Rosuvastatin (Nf) [Crestor] 10 mg PO QHS 30 Days #60 tab 10/09/21 Unknown Rx levETIRAcetam [Keppra TAB] 500 mg PO BID 30 Days #60 tab 10/09/21 Unknown Rx propranoloL [Inderal] 10 mg PO TID 30 Days #90 tab 10/09/21 Unknown Rx Active Medications: Generic Name Dose Route Start Last Admin Trade Name Freq PRN Reason Stop Dose Admin Apixaban 5 mg 11/11/21 22:00 Apixaban 5 Mg Tab PO Q12HR CHRISTOPHER Protocol Atorvastatin Calcium 80 mg 11/09/21 22:00 11/10/21 22:56 Atorvastatin 40 Mg Tab PO 80 mg QHS CHRISTOPHER Administration Carvedilol 3.125 mg 11/09/21 22:00 11/11/21 10:23 Carvedilol 3.125 Mg Tab PO 3.125 mg BID CHRISTOPHER Administration Citalopram Hydrobromide 20 mg 11/09/21 10:00 11/11/21 10:22 Citalopram 20 Mg Tab PO 20 mg DAILY CHRISTOPHER Administration Dextrose 0 ml 11/08/21 23:37 Dextrose 50% In Water (25gm) 50 Ml Syringe IV Q30MIN PRN Hypoglycemia Protocol Docusate Sodium 100 mg 11/11/21 11:00 11/11/21 12:47 Docusate Sodium 100 Mg/10 Ml Oral Liqd PO 100 mg BID CHRISTOPHER Administration Duloxetine HCl 30 mg 11/09/21 10:00 11/11/21 10:22 Duloxetine 30 Mg Cap PO 30 mg BID CHRISTOPHER Administration Ferrous Gluconate 324 mg 11/11/21 14:00 Ferrous Gluconate 324 Mg Tab PO TID CHRISTOPHER Furosemide 40 mg 11/12/21 10:00 Furosemide 40 Mg Tab PO QDAY CHRISTOPHER Gabapentin 900 mg 11/09/21 10:00 11/11/21 10:22 Gabapentin 300 Mg Cap PO 900 mg BID CHRISTOPHER Administration Insulin Human Lispro 0 unit 11/09/21 07:30 11/11/21 12:47 Insulin Lispro 100 Unit/Ml SUB-Q 4 unit ACHS CHRISTOPHER Administration Protocol Levetiracetam 500 mg 11/09/21 10:00 11/11/21 10:23 Levetiracetam 500 Mg Tab PO 500 mg BID CHRISTOPHER Administration Losartan Potassium 25 mg 11/10/21 10:00 11/11/21 10:22 Losartan 25 Mg Tab PO 25 mg QDAY CHRISTOPHER Administration Magnesium Hydroxide 30 ml 11/08/21 23:30 11/10/21 19:37 Magnesium Hydroxide (Mom) Oral Liqd Udc PO 30 ml Q4H PRN Administration Constipation Morphine Sulfate 2 mg 11/08/21 23:30 11/10/21 19:36 Morphine 2 Mg/1 Ml Inj IV 2 mg Q4H PRN Administration Pain, Moderate (4-6) Ondansetron HCl 4 mg 11/08/21 23:30 Ondansetron 4 Mg/2 Ml Inj IV Q8H PRN Nausea And Vomiting Pantoprazole Sodium 40 mg 11/09/21 10:00 11/11/21 10:22 Pantoprazole 40 Mg Tab PO 40 mg DAILY CHRISTOPHER Administration Primidone 50 mg 11/09/21 10:00 11/11/21 10:22 Primidone 50 Mg Tab PO 50 mg BID CHRISTOPHER Administration Sodium Chloride 10 ml 11/09/21 10:00 11/11/21 10:23 Sodium Chloride 0.9% 10 Ml Flush Syringe IV 10 ml BID CHRISTOPHER Administration Sodium Chloride 10 ml 11/08/21 22:26 Sodium Chloride 0.9% 10 Ml Flush Syringe IV PRN PRN LINE FLUSH HEART Score - HEART Score Troponin: Troponin T 0.089 ng/mL (0.00-0.029) H 11/08/21 23:19
--- NOTE | 2021-11-11 17:05 | Vascular Lab Report ---
DUPLEX DOPPLER LOWER EXTREMITY VEINS, BILATERAL INDICATION / CLINICAL INFORMATION: swelling. TECHNIQUE: Duplex doppler imaging was performed through the veins of both lower extremities using armani ous compression and other maneuvers. COMPARISON: None available. FINDINGS: RIGHT COMMON FEMORAL VEIN: Negative. RIGHT FEMORAL VEIN: Negative. RIGHT POPLITEAL VEIN: Negative. RIGHT CALF VEINS: Negative. LEFT COMMON FEMORAL VEIN: Acute thrombus. LEFT FEMORAL VEIN: Acute thrombus. ADDITIONAL FINDINGS: None. IMPRESSION: 1. Acute DVT in the left common femoral vein and proximal superficial femoral vein. Television Agent notified SAÚL Meyer at 1440. Signer Name: Jeb Denny MD Signed: 11/11/2021 5:00 PM Workstation Name: [email or web address]
[2021-11-11] MEDS: MORPHINE 2 MG/1 ML INJ IV PRN (20:55)
[2021-11-11] MEDS: APIXABAN 5 MG TAB PO SCH (21:01)
[2021-11-11] MEDS: FERROUS GLUCONATE 324 MG TAB PO SCH (22:47)
[2021-11-12 06:03] LABS: Blood Urea Nitrogen 13 mg/dL (7-17); Calcium 7.4 mg/dL (8.4-10.2); Hemolysis Index 5
[2021-11-12 06:04] LABS: BUN/Creatinine Ratio 26
--- NOTE | 2021-11-12 07:50 | Progress Note ---
Hospitalist Physical - Constitutional Vitals: Temp Pulse Resp BP Pulse Ox 99.0 F 79 17 136/56 92 11/12/21 03:22 11/12/21 05:02 11/12/21 03:22 11/12/21 03:22 11/12/21 03:22 General appearance: Present: no acute distress HEART Score - HEART Score Troponin: Troponin T 0.089 ng/mL (0.00-0.029) H 11/08/21 23:19 Results - Labs CBC & Chem 7: 11/11/21 12:46 11/12/21 05:15 Labs: Laboratory Last Values WBC 4.7 K/mm3 (4.5-11.0) 11/11/21 12:46 RBC 3.01 M/mm3 (3.65-5.03) L 11/11/21 12:46 Hgb 7.4 gm/dl (10.1-14.3) L 11/11/21 12:46 Hct 23.8 % (30.3-42.9) L 11/11/21 12:46 MCV 79 fl (79-97) 11/11/21 12:46 MCH 25 pg (28-32) L 11/11/21 12:46 MCHC 31 % (30-34) 11/11/21 12:46 RDW 21.0 % (13.2-15.2) H 11/11/21 12:46 Plt Count 307 K/mm3 (140-440) 11/11/21 12:46 Lymph % (Auto) 16.1 % (13.4-35.0) 11/10/21 06:00 Amador % (Auto) 9.9 % (0.0-7.3) H 11/10/21 06:00 Eos % (Auto) 4.1 % (0.0-4.3) 11/10/21 06:00 Baso % (Auto) 1.4 % (0.0-1.8) 11/10/21 06:00 Lymph # (Auto) 1.0 K/mm3 (1.2-5.4) L 11/10/21 06:00 Amador # (Auto) 0.6 K/mm3 (0.0-0.8) 11/10/21 06:00 Eos # (Auto) 0.2 K/mm3 (0.0-0.4) 11/10/21 06:00 Baso # (Auto) 0.1 K/mm3 (0.0-0.1) 11/10/21 06:00 Seg Neutrophils % 68.5 % (40.0-70.0) 11/10/21 06:00 Seg Neutrophils # 4.1 K/mm3 (1.8-7.7) 11/10/21 06:00 PT 13.7 Sec. (12.2-14.9) 11/11/21 12:46 INR 0.95 (0.87-1.13) 11/11/21 12:46 APTT 27.6 Sec. (24.2-36.6) 11/11/21 12:46 D-Dimer 825.58 ng/mlDDU (0-234) H 11/09/21 10:45 Sodium 131 mmol/L (137-145) L 11/12/21 05:15 Potassium 3.6 mmol/L (3.6-5.0) D 11/12/21 05:15 Chloride 93.6 mmol/L (98-107) L 11/12/21 05:15 Carbon Dioxide 28 mmol/L (22-30) 11/12/21 05:15 Anion Gap 13 mmol/L 11/12/21 05:15 BUN 13 mg/dL (7-17) 11/12/21 05:15 Creatinine 0.5 mg/dL (0.6-1.2) L 11/12/21 05:15 Estimated GFR > 60 ml/min 11/12/21 05:15 BUN/Creatinine Ratio 26 % 11/12/21 05:15 Glucose 136 mg/dL (65-100) H 11/12/21 05:15 POC Glucose 247 mg/dL (70-105) H 11/11/21 20:07 Lactic Acid 0.80 mmol/L (0.7-2.0) 11/08/21 23:19 Calcium 7.4 mg/dL (8.4-10.2) L 11/12/21 05:15 Phosphorus 4.70 mg/dL (2.5-4.5) H D 11/11/21 05:25 Magnesium 2.10 mg/dL (1.7-2.3) 11/11/21 05:25 Iron 12 ug/dL (37-170) L 11/10/21 20:04 TIBC 221 mcg/dL (250-450) L 11/10/21 20:04 Ferritin 50.8 ng/mL (10.0-200.0) 11/10/21 20:04 Total Bilirubin < 0.20 mg/dL (0.1-1.2) 11/10/21 04:12 Direct Bilirubin < 0.2 mg/dL (0-0.2) 11/10/21 04:12 Indirect Bilirubin 0.0 mg/dL 11/10/21 04:12 AST 9 units/L (5-40) 11/10/21 04:12 ALT 8 units/L (7-56) 11/10/21 04:12 Alkaline Phosphatase 114 units/L (35-129) 11/10/21 04:12 Lactate Dehydrogenase 99 units/L (91-180) 11/09/21 10:45 Troponin T 0.089 ng/mL (0.00-0.029) H 11/08/21 23:19 C-Reactive Protein 3.40 mg/dL (0.00-1.30) H 11/09/21 10:45 NT-Pro-B Natriuret Pep 07442 pg/mL (0-900) H 11/08/21 19:42 Total Protein 4.6 g/dL (6.3-8.2) L 11/10/21 04:12 Albumin 2.4 g/dL (3.9-5) L 11/10/21 04:12 Albumin/Globulin Ratio 1.1 % 11/10/21 04:12 Triglycerides 98 mg/dL (2-149) 11/08/21 19:42 Cholesterol 161 mg/dL (50-199) 11/08/21 19:42 LDL Cholesterol Direct 64 mg/dL (50-130) 11/08/21 19:42 HDL Cholesterol 72 mg/dL (40-59) H 11/08/21 19:42 Cholesterol/HDL Ratio 2.23 % 11/08/21 19:42 Vitamin B12 973.6 pg/mL (211-911) H 11/10/21 20:04 Procalcitonin 0.16 ng/mL (<0.15) 11/09/21 10:45 Urine Color Colorless (Yellow) 11/08/21 21:39 Urine Turbidity Clear (Clear) 11/08/21 21:39 Specific [place] (Man) 1.015 (1.003-1.030) 11/08/21 21:39 Ur Protein (Man) <30 mg dl mg/dL (Negative) 11/08/21 21:39 Ur Ketones (Man) Negative (Negative) 11/08/21 21:39 Ur Nitrite (Man) Negative (Negative) 11/08/21 21:39 Urine Bilirubin (Man) Negative (Negative) 11/08/21 21:39 Leukocyte Esterase (Man) Small (Negative) 11/08/21 21:39 Urine WBC (Auto) < 1.0 /HPF (0.0-6.0) 11/08/21 21:39 Urine RBC (Auto) < 1.0 /HPF (0.0-6.0) 11/08/21 21:39 Urine RBC (Manual) Negative (Negative) 11/08/21 21:39 Urine Mucus Few /HPF 11/08/21 21:39 Nasal Screen MRSA (PCR) Negative (Negative) 11/09/21 12:58 Blood Type A NEGATIVE 11/10/21 11:02 Antibody Screen Negative 11/10/21 11:02 Microbiology: Microbiology 11/08/21 19:42 Peripheral/Venous Blood Culture - Preliminary NO GROWTH AFTER 72 HOURS 11/08/21 19:42 Peripheral/Venous Blood Culture - Preliminary NO GROWTH AFTER 72 HOURS Sanchez/IV: Voiding Method Indwelling Catheter Active Medications - Current Medications Current Medications: Generic Name Dose Route Start Last Admin Trade Name Freq PRN Reason Stop Dose Admin Apixaban 5 mg 11/11/21 22:00 11/11/21 21:01 Apixaban 5 Mg Tab PO 5 mg Q12HR CHRISTOPHER Administration Protocol Atorvastatin Calcium 80 mg 11/09/21 22:00 11/11/21 21:01 Atorvastatin 40 Mg Tab PO 80 mg QHS CHRISTOPHER Administration Carvedilol 3.125 mg 11/09/21 22:00 11/11/21 21:01 Carvedilol 3.125 Mg Tab PO 3.125 mg BID CHRISTOPHER Administration Citalopram Hydrobromide 20 mg 11/09/21 10:00 11/11/21 10:22 Citalopram 20 Mg Tab PO 20 mg DAILY CHRISTOPHER Administration Dextrose 0 ml 11/08/21 23:37 Dextrose 50% In Water (25gm) 50 Ml Syringe IV Q30MIN PRN Hypoglycemia Protocol Docusate Sodium 100 mg 11/11/21 11:00 11/11/21 21:01 Docusate Sodium 100 Mg/10 Ml Oral Liqd PO 100 mg BID CHRISTOPHER Administration Duloxetine HCl 30 mg 11/09/21 10:00 11/11/21 21:01 Duloxetine 30 Mg Cap PO 30 mg BID CHRISTOPHER Administration Ferrous Gluconate 324 mg 11/11/21 14:00 11/11/21 22:47 Ferrous Gluconate 324 Mg Tab PO 324 mg TID CHRISTOPHER Administration Furosemide 40 mg 11/12/21 10:00 Furosemide 40 Mg Tab PO QDAY CHRISTOPHER Gabapentin 900 mg 11/09/21 10:00 11/11/21 21:01 Gabapentin 300 Mg Cap PO 900 mg BID CHRISTOPHER Administration Insulin Human Lispro 0 unit 11/09/21 07:30 11/11/21 22:47 Insulin Lispro 100 Unit/Ml SUB-Q 3 unit ACHS CHRISTOPHER Administration Protocol Levetiracetam 500 mg 11/09/21 10:00 11/11/21 21:01 Levetiracetam 500 Mg Tab PO 500 mg BID CHRISTOPHER Administration Losartan Potassium 25 mg 11/10/21 10:00 11/11/21 10:22 Losartan 25 Mg Tab PO 25 mg QDAY CHRISTOPHER Administration Magnesium Hydroxide 30 ml 11/08/21 23:30 11/10/21 19:37 Magnesium Hydroxide (Mom) Oral Liqd Udc PO 30 ml Q4H PRN Administration Constipation Morphine Sulfate 2 mg 11/08/21 23:30 11/11/21 20:55 Morphine 2 Mg/1 Ml Inj IV 2 mg Q4H PRN Administration Pain, Moderate (4-6) Ondansetron HCl 4 mg 11/08/21 23:30 Ondansetron 4 Mg/2 Ml Inj IV Q8H PRN Nausea And Vomiting Pantoprazole Sodium 40 mg 11/09/21 10:00 11/11/21 10:22 Pantoprazole 40 Mg Tab PO 40 mg DAILY CHRISTOPHER Administration Primidone 50 mg 11/09/21 10:00 11/11/21 23:27 Primidone 50 Mg Tab PO 50 mg BID CHRISTOPHER Administration Sodium Chloride 10 ml 11/09/21 10:00 11/11/21 21:01 Sodium Chloride 0.9% 10 Ml Flush Syringe IV 10 ml BID CHRISTOPHER Administration Sodium Chloride 10 ml 11/08/21 22:26 Sodium Chloride 0.9% 10 Ml Flush Syringe IV PRN PRN LINE FLUSH Nutrition/Malnutrition Assess - Dietary Evaluation Nutrition/Malnutrition Findings: Nutrition Notes Start: 11/09/21 16:36 Freq: Status: Active Protocol: Document 11/09/21 16:36 JUSTIN (Rec: 11/09/21 16:42 JUSTIN [email or web address]) Nutrition Notes 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 Pt c/o SOB for the past 3 wks. Currently on BiPap support. Burn Absent Trauma Absent Skin Integrity/Comment (L) medial buttock wound Minimum of two criteria No #1 Nutrition Diagnosis Predicted suboptimal energy intake Etiology SOB As Evidenced by Signs and Symptoms pt on and off BiPap support Is patient on ventilator? No Is Patient Ambulatory and/or Out of Bed No REE-([facility]-confined to bed) 1260.072 Kcal/Kg value to use for calculation 25 Approximate Energy Requirements Using 1350 kcal/Kg Calculation Used for Recommendations Kcal/kg Additional Notes Pro needs 1.2-2g/k-108g/ day Fluid needs per MD. Nutrition Intervention Change Diet Order: Continue current diet order Goal #1 PO intake to meet at least 75% energy and pro needs Anticipated Discharge Needs: Unable to identify at this time Follow-Up By: 11/13/21 Additional Comments F/U: intakes
--- NOTE | 2021-11-12 08:37 | Progress Note ---
Assessment and Plan Acute P.E. Acute hypoxemic respiratory failure Acute exacerbation of congestive heart failure Hypotension at presentation Non-ST elevation myocardial infarction Nausea and vomiting Abdominal pain Anemia that is normocytic Hyponatremia Adult failure to thrive - continue Eliquis - follow CBC - continue PPI therapy - continue to wean supplemental oxygen for target O2 sat's > 90% acutely - aspiration precautions - continue bronchodilators with pulmonary hygiene per RT - avoid nephrotoxins, renally dose all medications - continue to avoid benzodiazepine's, reduce the possibility of delirium - AB's per ID rec's - prn analgesia per CPOT score - Maintenance of sleep-wake cycle, avoid delirium - G.I. & VTE prophylaxis - PT/OT/ROM exercises - continue mobility protocols for pressure ulcer prophylaxis - Monitor hemodynamics closely - continue other care per attending / other consultants - discharge planning ongoing concurrently .... Re-evaluate in am & prn Subjective Date of service: 11/12/21 Principal diagnosis: Acute PE; Hypotension; AHRF; AE-CHF; Hypotension; NSTEMI; Anemia Interval history: Patient is seen today for: Acute hypoxemic respiratory failure; Acute PE; AE- CHF; Hypotension; NSTEMI; Anemia Seen and examined at bedside; 24hour events reviewed; nursing and respiratory care staff consulted; no adverse overnight events reported to me; resting peacefully in bed; no acute GIB overnight; remains on supplemental oxygen at 2L flow; denies any other bleeding; occasional left upper chest / shoulder pain Objective Vital Signs - 12hr 11/11/21 11/12/21 11/12/21 23:12 03:22 05:02 Temperature 98.9 F 99.0 F Pulse Rate 86 79 79 Respiratory 17 17 Rate Blood Pressure 130/52 136/56 Blood Pressure [Left] O2 Sat by Pulse 92 92 Oximetry 11/12/21 08:15 Temperature 98.0 F Pulse Rate 73 Respiratory 16 Rate Blood Pressure Blood Pressure 148/48 [Left] O2 Sat by Pulse 92 Oximetry Constitutional: no acute distress, other (elderly thin female with mildly increased respiratory effort at rest) Eyes: non-icteric ENT: oropharynx moist Neck: supple, no lymphadenopathy, no JVD Effort: mildly labored Ascultation: Bilateral: rales (bases) Percussion: Bilateral: not dull Cardiovascular: regular rate and rhythm Gastrointestinal: normoactive bowel sounds, soft, non-tender, non-distended Integumentary: normal Extremities: no cyanosis, pink and warm, pulses normal, edema (trace) Neurologic: non-focal exam, pupils equal and round, CN II-XII normal, motor strength normal and Psychiatric: mood appropriate, affect normal CBC and BMP: 11/11/21 12:46 11/12/21 05:15 ABG, PT/INR, D-dimer: PT/INR, D-dimer PT 13.7 Sec. (12.2-14.9) 11/11/21 12:46 INR 0.95 (0.87-1.13) 11/11/21 12:46 D-Dimer 825.58 ng/mlDDU (0-234) H 11/09/21 10:45 Abnormal lab findings: Abnormal Labs 11/08/21 11/08/21 11/08/21 19:42 19:42 19:42 RBC 3.02 L Hgb 7.6 L Hct 24.3 L MCH 25 L RDW 21.2 H Lymph % (Auto) 8.9 L [place] % (Auto) Lymph # (Auto) 0.7 L Seg Neutrophils % 86.2 H D-Dimer Sodium 129 L Potassium Chloride 94.6 L Carbon Dioxide Creatinine 0.5 L Glucose 152 H POC Glucose Calcium 8.2 L Phosphorus Magnesium Iron TIBC Alkaline Phosphatase 151 H Troponin T 0.111 H* C-Reactive Protein NT-Pro-B Natriuret Pep Total Protein 5.4 L Albumin 3.0 L HDL Cholesterol 72 H Vitamin B12 11/08/21 11/08/21 11/09/21 19:42 23:19 01:29 RBC Hgb Hct MCH RDW Lymph % (Auto) [place] % (Auto) Lymph # (Auto) Seg Neutrophils % D-Dimer Sodium Potassium Chloride Carbon Dioxide Creatinine Glucose POC Glucose 146 H Calcium Phosphorus Magnesium Iron TIBC Alkaline Phosphatase Troponin T 0.089 H C-Reactive Protein NT-Pro-B Natriuret Pep 15238 H Total Protein Albumin HDL Cholesterol Vitamin B12 11/09/21 11/09/21 11/09/21 04:00 04:00 07:28 RBC 3.17 L Hgb 7.8 L Hct 25.9 L MCH 25 L RDW 20.7 H Lymph % (Auto) 10.0 L [place] % (Auto) Lymph # (Auto) 0.8 L Seg Neutrophils % 80.0 H D-Dimer Sodium 134 L Potassium Chloride Carbon Dioxide 21 L Creatinine 0.5 L Glucose 179 H POC Glucose 198 H Calcium 8.1 L Phosphorus Magnesium Iron TIBC Alkaline Phosphatase Troponin T C-Reactive Protein NT-Pro-B Natriuret Pep Total Protein Albumin HDL Cholesterol Vitamin B12 11/09/21 11/09/21 11/09/21 10:45 10:45 11:34 RBC Hgb Hct MCH RDW Lymph % (Auto) [place] % (Auto) Lymph # (Auto) Seg Neutrophils % D-Dimer 825.58 H Sodium Potassium Chloride Carbon Dioxide Creatinine Glucose POC Glucose 133 H Calcium Phosphorus Magnesium Iron TIBC Alkaline Phosphatase Troponin T C-Reactive Protein 3.40 H NT-Pro-B Natriuret Pep Total Protein Albumin HDL Cholesterol Vitamin B12 11/09/21 11/09/21 11/10/21 17:52 21:31 00:13 RBC Hgb Hct MCH RDW Lymph % (Auto) [place] % (Auto) Lymph # (Auto) Seg Neutrophils % D-Dimer Sodium Potassium Chloride Carbon Dioxide Creatinine Glucose POC Glucose 158 H 62 L 160 H Calcium Phosphorus Magnesium Iron TIBC Alkaline Phosphatase Troponin T C-Reactive Protein NT-Pro-B Natriuret Pep Total Protein Albumin HDL Cholesterol Vitamin B12 11/10/21 11/10/21 11/10/21 04:00 04:12 06:00 RBC 2.79 L 2.80 L Hgb 6.8 L 7.1 L Hct 22.5 L 22.4 L MCH 25 L 26 L RDW 20.8 H 20.5 H Lymph % (Auto) [place] % (Auto) 9.9 H Lymph # (Auto) 1.0 L Seg Neutrophils % D-Dimer Sodium 133 L Potassium Chloride Carbon Dioxide Creatinine Glucose 138 H POC Glucose Calcium 8.2 L Phosphorus Magnesium 1.40 L Iron TIBC Alkaline Phosphatase Troponin T C-Reactive Protein NT-Pro-B Natriuret Pep Total Protein 4.6 L Albumin 2.4 L HDL Cholesterol Vitamin B12 11/10/21 11/10/21 11/10/21 08:14 11:10 16:03 RBC Hgb 7.5 L Hct 24.4 L MCH RDW Lymph % (Auto) [place] % (Auto) Lymph # (Auto) Seg Neutrophils % D-Dimer Sodium Potassium Chloride Carbon Dioxide Creatinine Glucose POC Glucose 152 H 202 H Calcium Phosphorus Magnesium Iron TIBC Alkaline Phosphatase Troponin T C-Reactive Protein NT-Pro-B Natriuret Pep Total Protein Albumin HDL Cholesterol Vitamin B12 11/10/21 11/10/21 11/10/21 17:01 20:04 20:04 RBC Hgb Hct MCH RDW Lymph % (Auto) [place] % (Auto) Lymph # (Auto) Seg Neutrophils % D-Dimer Sodium Potassium Chloride Carbon Dioxide Creatinine Glucose POC Glucose 142 H Calcium Phosphorus Magnesium Iron 12 L TIBC 221 L Alkaline Phosphatase Troponin T C-Reactive Protein NT-Pro-B Natriuret Pep Total Protein Albumin HDL Cholesterol Vitamin B12 973.6 H 11/10/21 11/11/21 11/11/21 23:03 05:25 05:25 RBC Hgb 7.4 L Hct 24.0 L MCH RDW Lymph % (Auto) [place] % (Auto) Lymph # (Auto) Seg Neutrophils % D-Dimer Sodium 127 L Potassium 5.5 H D Chloride 92.9 L Carbon Dioxide Creatinine Glucose 122 H POC Glucose 181 H Calcium 8.3 L Phosphorus 4.70 H D Magnesium Iron TIBC Alkaline Phosphatase Troponin T C-Reactive Protein NT-Pro-B Natriuret Pep Total Protein Albumin HDL Cholesterol Vitamin B12 11/11/21 11/11/21 11/11/21 07:48 11:50 12:46 RBC 3.01 L Hgb 7.4 L Hct 23.8 L MCH 25 L RDW 21.0 H Lymph % (Auto) [place] % (Auto) Lymph # (Auto) Seg Neutrophils % D-Dimer Sodium Potassium Chloride Carbon Dioxide Creatinine Glucose POC Glucose 165 H 231 H Calcium Phosphorus Magnesium Iron TIBC Alkaline Phosphatase Troponin T C-Reactive Protein NT-Pro-B Natriuret Pep Total Protein Albumin HDL Cholesterol Vitamin B12 11/11/21 11/12/21 20:07 05:15 RBC Hgb Hct MCH RDW Lymph % (Auto) [place] % (Auto) Lymph # (Auto) Seg Neutrophils % D-Dimer Sodium 131 L Potassium Chloride 93.6 L Carbon Dioxide Creatinine 0.5 L Glucose 136 H POC Glucose 247 H Calcium 7.4 L Phosphorus Magnesium Iron TIBC Alkaline Phosphatase Troponin T C-Reactive Protein NT-Pro-B Natriuret Pep Total Protein Albumin HDL Cholesterol Vitamin B12 Prior PFT's, U/S of legs: report reviewed (acute left common femoral DVT) Allied health notes reviewed: nursing
[2021-11-12] MEDS ORDERED: FUROSEMIDE 40 MG TAB PO SCH (10:00)
[2021-11-12] MEDS: CITALOPRAM 20 MG TAB PO SCH (10:57)
[2021-11-12] MEDS: FERROUS GLUCONATE 324 MG TAB PO SCH ×2 (10:57→11:03)
[2021-11-12] MEDS: GABAPENTIN 300 MG CAP PO SCH (10:57)
[2021-11-12] MEDS: PANTOPRAZOLE 40 MG TAB PO SCH (10:58)
[2021-11-12] MEDS: DULoxetine 30 MG CAP PO SCH (10:58)
[2021-11-12] MEDS: carvediloL 3.125 MG TAB PO SCH (10:58)
[2021-11-12] MEDS: PRIMIDONE 50 MG TAB PO SCH (10:58)
[2021-11-12] MEDS: levETIRAcetam 500 MG TAB PO SCH (10:58)
[2021-11-12] MEDS: APIXABAN 5 MG TAB PO SCH (10:59)
[2021-11-12] MEDS: LOSARTAN 25 MG TAB PO SCH (11:00)
[2021-11-12] MEDS: DOCUSATE SODIUM 100 MG/10 ML ORAL LIQD PO SCH (11:00)
--- NOTE | 2021-11-12 11:23 | Progress Note ---
Assessment and Plan Patient is a 71-year-old female with past medical history of coronary artery disease s/p CABG 2014, hypertension, COPD, peripheral vascular disease s/p left lower extremity AKA, GI ulcers, anemia, and current smoker who reported to the ED with a complaint of shortness of breath, nausea, and vomiting x1 to 2 weeks. Acute respiratory failure-pulmonology follow Acute on chronic HFrEF Abdominal pain/nausea/vomiting- CT abd pending NSTEMI suspect type II Ischemic cardiomyopathy small PE Anemia COPD-pulmonology following CAD s/p CABG 2014 Hypertension Peripheral vascular disease s/p AKA History of GI ulcers Tobacco abuse Elevated D-dimer- small pe left cfv dvt Echo 10/05/2021-EF 35 to 40%. Regional wall motion abnormalities. Right ventricle is normal in size with normal ventricle ventricular systolic function. Severe mitral regurgitation. Mild tricuspid regurgitation Cardiac cath 10/15/2021- 2-vessel CAD with diffusely diseased LAD and left circumflex Widely patent REGALADO to mid LAD and SVG toOMbypass graftsModerately reduced LV systolic function with ejection fraction 30 to 35% and associated moderate, hypokinesis Mildly elevated LVEDP Normal systemic arterial pressures. Recommend aggressive medical therapy rec: Patient is compensated LV dysfunction. Has DVT is on Eliquis 5 mg twice a day hold Plavix. Given risk benefits of anemia on iron tablets 3 times a day. Stable from a cardiovascular point of view for discharge from CHF Subjective Date of service: 11/12/21 Principal diagnosis: Acute PE; Hypotension; AHRF; AE-CHF; Hypotension; NSTEMI; Anemia Interval history: no sob Objective Vital Signs Temp Pulse Pulse Resp BP BP Pulse Ox 11/12/21 10:58 70 11/12/21 10:00 70 11/12/21 08:15 98.0 F 73 16 148/48 92 11/12/21 05:02 79 11/12/21 03:22 99.0 F 79 17 136/56 92 11/11/21 23:12 98.9 F 86 17 130/52 92 11/11/21 19:24 100 11/11/21 19:23 99.0 F 93 H 16 142/55 85 11/11/21 15:46 98.0 F 80 16 131/51 93 11/11/21 14:00 77 12 141/55 97 11/11/21 13:00 76 14 132/52 95 09/04/22 12:19 98.2 F 11/11/21 12:10 76 15 96 11/11/21 12:00 85 16 96 - Physical Examination General: No Apparent Distress HEENT: Positive: PERRL, Mucus Membranes Moist Neck: Positive: trachea midline Cardiac: Positive: Reg Rate and Rhythm Lungs: Positive: clear to auscultation Neuro: Positive: Grossly Intact Abdomen: Positive: Tender Skin: Negative: Rash, Suspicious Lesions, Ulceration Extremities: Present: upper extr. pulses, Other (right leg no edema) - Labs and Meds Coagulation 11/11/21 Range/Units 12:46 PT 13.7 (12.2-14.9) Sec. INR 0.95 (0.87-1.13) APTT 27.6 (24.2-36.6) Sec. CBC 11/11/21 Range/Units 12:46 WBC 4.7 (4.5-11.0) K/mm3 RBC 3.01 L (3.65-5.03) M/mm3 Hgb 7.4 L (10.1-14.3) gm/dl Hct 23.8 L (30.3-42.9) % Plt Count 307 (140-440) K/mm3 Comprehensive Metabolic Panel 11/11/21 11/12/21 Range/Units 12:46 05:15 Sodium 131 L (137-145) mmol/L Potassium 3.6 D (3.6-5.0) mmol/L Chloride 93.6 L (98-107) mmol/L Carbon Dioxide 28 (22-30) mmol/L BUN 13 (7-17) mg/dL Creatinine 0.6 0.5 L (0.6-1.2) mg/dL Glucose 136 H (65-100) mg/dL Calcium 7.4 L (8.4-10.2) mg/dL - Imaging and Cardiology EKG: report reviewed, image reviewed Echo: report reviewed Cardiac cath: report reviewed - Telemetry EKG Rhythm: Sinus Rhythm - EKG Sinus rhythms and dysrhythmias: sinus rhythm Repolarization changes or abnormalities: nonspecific abnormality, ST segment, and/or T wave - Allied health notes Allied health notes reviewed: nursing
[2021-11-12 11:42] LABS: Hematocrit 23.1 % (30.3-42.9); Hemoglobin 7.1 gm/dl (10.1-14.3); Mean Corpuscular HGB Conc 31 % (30-34); Mean Corpuscular Volume 79 fl (79-97); Platelet Count 294 K/mm3 (140-440); Red Blood Count 2.93 M/mm3 (3.65-5.03); Red Cell Distribution Width 20.7 % (13.2-15.2)
--- NOTE | 2021-11-12 11:42 | Discharge Summary ---
Providers - Providers Date of Admission: 11/08/21 22:29 Attending physician: AMANDA BROOKS MD 11/08/21 22:29 Consult to Physician [CONS] Routine Comment: Consulting Provider: BRIDGER MCGREGOR Physician Instructions: Reason For Exam: Hypotension, pulmonary edema 11/09/21 06:28 Consult to Cardiology [CONS] Routine Consulting Provider: SHAHID VILLEDA Reason For Exam: CHF exacerbation 11/10/21 09:17 Consult to Physician [CONS] Routine Comment: Consulting Provider: MIRANDA SANDHU Physician Instructions: SPOKE TO DR. MCMANUS/EBONI Reason For Exam: Eval for possible IVC filter, not candidate for AC 11/10/21 14:23 Consult to Physician [CONS] Routine Comment: spoke to shin hardwick/eboni Consulting Provider: LOUIE SORENSON Physician Instructions: Reason For Exam: Anemia, H/o GI ulcers with bleed Primary care physician: PARKER GATICA Hospitalization Reason for admission: hypotension Condition: Stable Hospital course: This is a 71-year-old male with known past medical history CAD s/p CABG in 2014, HTN, COPD, current tobacco dependence, PVD s/p LLE AKA, GI ulcers, and anemia admitted for hypotension, acute of chronic CHF exacerbation, and acute hypoxic respiratory failure Hospital Course to Date: 11/09: Off Levophed gtt this am, VSS, on 5L NC. Patient still complaining of chest pressure with abdominal and flank pain. Will get CTA chest/abd/pelvis for further eval. Continue IV lasix BID for now, cardiololgy is following. D/w CCM is patient remains off pressors this afternoon okay to transfer patient to [facility]. 11/10: CTA chest/Abd with small nonobstructive PTE and possible left common femoral vein DVT. Patient is stable on 4L NC, no respiratory distress noted. Remains on IV Lasix BID. Patient current on subQ Lovenox and Plavix. H&H dropped this am, no s/s of any active bleeding. Patient does have a history of GI ulcer and chronic anemia, patient reported that she stopped taking her Plavix because "she was tired of it". Check BLE doppler to r/o DVT. Will hold AC for now and continue PO Plavix. Vascular Surgery consulted for possible IVC filter eval. Will also check a stool occult, transfuse for H&H less than 7. 11/11: GI input reviewed, ordered iron studies and B12 also occult blood. Awaiting Doppler of lower ext. Vascular to decide about IVC filter. Will discuss with pulmonary team about possible repeating CTA chest and if persistent for PE will initate AC which has been on hold due to severe anemia and monitor for any bleed. Wean off oxygen as tolerated, Noted very low iron stores, will start on Iron supplementation. Continue IMCU care 11/12: Patient seen and examined, no new complaints, she is tolerating the eliquis. No new bleeding. Per cardiology. Echo 10/05/2021-EF 35 to 40%. Regional wall motion abnormalities. Right ventricle is normal in size with normal ventricle ventricular systolic function. Severe mitral regurgitation. Mild tricuspid regurgitation Cardiac cath 10/15/2021- 2-vessel CAD with diffusely diseased LAD and left circumflex Widely patent REGALADO to mid LAD and SVG toOMbypass graftsModerately reduced LV systolic function with ejection fraction 30 to 35% and associated moderate, hypokinesis Mildly elevated LVEDP Normal systemic arterial pressures. Recommend aggressive medical therapy rec: Patient is compensated LV dysfunction. Has DVT is on Eliquis 5 mg twice a day hold Plavix. Given risk benefits of anemia on iron tablets 3 times a day. Stable from a cardiovascular point of view for discharge from CHF counselling provided to the patient. Assessment and Plan #Acute of Chronic CHF exacerbation with reduced EF of 35 to 40% on 10/05/2021 #Elevated Troponin # Acute Pulmonary Embolisim # Left lower ext DVT #H/o Hypertension #CAD s/p CABG - Presented with SOB, orthopnea, elevated BNP, and LE edema - Patient was also noted to be hypotensive in the ED and Levophed was initiated - Off levo this am, remains in SR, VSS - Troponin positive X2, downtrending. possibly secondary to demand ischemia - EKG shows SR with no significant ST changes - Echo from 09/2021 reviewed EF 35 to 40% - On IV Lasix BID - Cardiology consulted, appreciate recommendations - Resume home meds - Continue blood pressure monitor per protocol - Maintain MAP above 65 and SBP less than 160 - VTE phrop on hold due to anemia - Strick I&Os and daily weight - CCM consulted, appreciate recommendations #Acute Hypoxic Respiratory Failure #H/o COPD, current smoker - Probably secondary to above - Desated in the 70s on RA, c/o SOB and orthopnea - Chest x-ray significant for bilateral pulmonary opacities and pleural effusion. This is concerning for congestive heart failure - Currently on 4L NC - Continue IV lasix BID - Continue O2 supplementation as tolerated - Continue SPO2 monitoring for SPO2 goal above 92% - [facility] consulted, appreciate recommendations #Pulmonary Thromboemboli (PTE) #Possible Left common femoral DVT - Noted on CTA Chest/abd, X2 small nonocclusive PTE and possible left common femoral DVT - BLE doppler ordered to r/o DVT - On VTE proh and Plavix, drop in H&H this am. No s/s of any active bleeding - Will hold AC for now, continue PO Plavix - Vascular Surgery consulted for possible IVC filter eval #Abdominal Pain-resolved #Diarrhea - Unknown Etiology - Patient reported chest pressure with abdominal pain, flank pain, and diarrhea - Cardiac w/up as described above - No diarrhea reported sinced admit - CTA chest/abd/pelvis reviewed as describe above, otherwise no acute process in the abdomen or pelvis - Alkaline phosp normalized, will continue to trend LFTs #Anemia of Chronic Disease #History of GI Ulcers - Drop in H&H this am - No s/s of any active bleeding, VSS - VTE proph held - Continue to trend CBC - Transfuse for Hgb less than 7 #Tobacco Dependence - Patient reported a 45 years smoking history. She stated she has not smoked for 5 days - Smoking cessation education provided. Patient verbalized understanding and agreed with the info provided - Denied any urges at this time. Nicotine patch if needed #Peripheral Vascular Disease(PVD) s/p LLE AKA - Chronic - Home Plavix and gabapentin resumed #Hyperglycemia - 09/2021 Hgb A1c 6.0 - BG check and SSI initiated ACHS - Avoid Hypoglycemia - While critically ill target blood glucose of 140-180 Disposition: HOME HEALTH CARE SERVICE Final Discharge Diagnosis (Prints w/discharge instructions): #Acute of Chronic CHF exacerbation with reduced EF of 35 to 40% on 10/05/2021. #Elevated Troponin. # Acute Pulmonary Embolisim. # left lower ext DVT. #H/o Hypertension. #CAD s/p CABG Time spent for discharge: 35 mins Core Measure Documentation - Palliative Care Palliative Care/ Comfort Measures: Not Applicable - Core Measures Any of the following diagnoses?: DVT/PE - VTE Discharge Requirements Deep Vein Thrombosis/Pulmonary Embolism Present on Admission: Yes Has pt received <5 days of overlap therapy or INR<2.0: Yes Anticoagulant overlap therapy prescribed at discharge: Yes Exam - Physical Exam Narrative exam: Narrative exam: General appearance: Present: no acute distress, well-nourished, obese - EENT Eyes: Present: PERRL, EOM intact ENT: hearing intact - Neck Neck: Present: normal ROM - Respiratory Respiratory effort: normal Respiratory: bilateral: diminished, Other(bibasilar fine crackles) - Cardiovascular Rhythm: regular Heart Sounds: Present: S1 & S2 - Extremities Extremities: no ischemia, pulses intact, pulses symmetrical, abnormal (Left AKA) Extremity abnormal: edema - Peripheral Assessment Right Lower Extremity Edema Type: NonPitting Edema Degree: 1+ Capillary Refill: < 3 seconds Skin Temperature: Warm Generalized Edema Type: Non-pitting Edema Degree: 1+ Capillary Refill: < 3 seconds Skin Temperature: Warm Peripheral Pulses: within normal limits - Abdominal General gastrointestinal: soft, non-distended, normal bowel sounds - Integumentary Integumentary: Present: warm, dry - Psychiatric Psychiatric: appropriate mood/affect, cooperative - Neurologic Neurologic: CNII-XII intact, moves all extremities - Allied Health Allied health notes reviewed: nursing, case management - Constitutional Vitals: Temp Pulse Resp BP Pulse Ox 98.0 F 70 16 148/48 92 11/12/21 08:15 11/12/21 10:58 11/12/21 08:15 11/12/21 08:15 11/12/21 08:15 Plan Activity: advance as tolerated, fall precautions Diet: diabetic Special Instructions: smoking cessation Follow up with: PARKER GATICA MD [Primary Care Provider] - 7 Days DANTE HORVATH MD [Staff Physician] - 7 Days NIURKA RYAN MD [Staff Physician] - 7 Days Prescriptions: carvediloL [Coreg] 3.125 mg PO BID #60 tablet Losartan [Cozaar] 25 mg PO QDAY #30 tablet Apixaban [Eliquis] 5 mg PO Q12HR #60 tablet Ferrous Gluconate [Fergon 325 MG tab] 324 mg PO TID #90 tablet Furosemide [Lasix TAB] 40 mg PO QDAY #30 tablet
[2021-11-12 12:23] VITALS: BP 131/49
== END 2021-11-12 14:05 | disposition home or self-care (01) | DRG 280 ==
LOC: ED 17:13 → CC1 22:29 → IMCU 11-09 17:30 → 4A 11-11 14:45
PROVIDERS: ADMIT Internal Medicine Geriatric Medicine; ATTEND Internal Medicine
PROC: 5A09357 Assistance with Respiratory Ventilation, Less than 24 Consecutive Hours, Continuous Positive Airway Pressure (ICD-10-PCS; principal; 2021-11-08)
DX: I11.0 Hypertensive heart disease with heart failure (principal); I26.99 Other pulmonary embolism without acute cor pulmonale; I21.A1 Myocardial infarction type 2; I50.23 Acute on chronic systolic (congestive) heart failure; J96.01 Acute respiratory failure with hypoxia; J44.1 Chronic obstructive pulmonary disease with (acute) exacerbation; E87.1 Hypo-osmolality and hyponatremia; I82.412 Acute embolism and thrombosis of left femoral vein; D64.9 Anemia, unspecified; I95.9 Hypotension, unspecified; R19.7 Diarrhea, unspecified; E11.65 Type 2 diabetes mellitus with hyperglycemia; D63.8 Anemia in other chronic diseases classified elsewhere; E11.51 Type 2 diabetes mellitus with diabetic peripheral angiopathy without gangrene; I25.5 Ischemic cardiomyopathy; F17.200 Nicotine dependence, unspecified, uncomplicated; K21.9 Gastro-esophageal reflux disease without esophagitis; R62.7 Adult failure to thrive; E78.5 Hyperlipidemia, unspecified; Z88.6 Allergy status to analgesic agent; Z88.0 Allergy status to penicillin; Z88.2 Allergy status to sulfonamides; Z88.8 Allergy status to other drugs, medicaments and biological substances; I25.10 Atherosclerotic heart disease of native coronary artery without angina pectoris; Z95.1 Presence of aortocoronary bypass graft; Z89.612 Acquired absence of left leg above knee; Z79.84 Long term (current) use of oral hypoglycemic drugs; R77.8 Other specified abnormalities of plasma proteins; Z71.6 Tobacco abuse counseling
CPT/HCPCS: 36415; 71045; 71275; 74177; 80048; 80053; 80061; 80076; 81001; 82140; 82565; 82607; 82728; 82962; 83550; 83615; 83735; 83880; 84100; 84145; 84484; 85014; 85018; 85025; 85027; 85049; 85379; 85610; 85730; 86140; 86850; 86900; 86901; 87040; 87641; 93005; 93970; 94660; 94760; 99406; G0378; J2354; Q9967; J1265; J1815; J1940; J2270; J3475; J7030

== ENCOUNTER 2021-11-13 20:10 | Emergency (ER) | payer MEDICARE ==
[2021-11-13] MEDS ORDERED: methylPREDNISolone Sod Succinate 125 MG/2 ML INJ IV ONE (22:43)
[2021-11-13] MEDS ORDERED: ALBUTEROL 2.5 MG/3 ML NEBU IH ONE (22:43)
[2021-11-13] MEDS ORDERED: AZITHROMYCIN 250 MG TAB PO ONE (22:43)
[2021-11-13] MEDS ORDERED: IPRATROPIUM 0.02% NEBU 2.5 ML IH ONE (22:43)
--- NOTE | 2021-11-13 22:50 | Emergency Department Report ---
ED Shortness of Breath HPI - General Chief Complaint: Dyspnea/Respdistress Stated Complaint: RONN Time Seen by Provider: 11/13/21 21:19 Source: patient, EMS Mode of arrival: Stretcher Limitations: No Limitations - History of Present Illness Initial Comments: 71-year-old female with a history of COPD 56 years pack smoking history who now presents with worsening shortness of breath for the last 1 week. Patient was seen her last visit and admitted for couple of days discharged home with some medication which he has not been able to obtain because of cost. Patient states the medication will cost about $600 and that she is not ready to pay that much. She says she will be able to avoid pain 40 Kaylynn but nothing else. Patient however denied any palpitation or chest pain. No fever or chills reported. No other modifying or associated factors reported. MD Complaint: shortness of breath - Related Data Home Medications Medication Instructions Recorded Confirmed Last Taken DULoxetine [Cymbalta] 30 mg PO BID 10/06/21 10/06/21 Unknown Omeprazole 40 mg PO DAILY 10/06/21 10/06/21 Unknown Primidone [Mysoline] 50 mg PO BID 10/06/21 10/06/21 Unknown glipiZIDE [Glucotrol] 10 mg PO DAILY 10/06/21 10/06/21 Unknown Previous Rx's Medication Instructions Recorded Last Taken Type Citalopram [Celexa] 20 mg PO DAILY 30 Days #30 tablet 10/09/21 Unknown Rx Gabapentin 900 mg PO BID 30 Days #180 capsule 10/09/21 Unknown Rx Metformin HCl [metFORMIN] 1,000 mg PO BID 30 Days #60 tab 10/09/21 Unknown Rx Rosuvastatin (Nf) [Crestor] 10 mg PO QHS 30 Days #60 tab 10/09/21 Unknown Rx levETIRAcetam [Keppra TAB] 500 mg PO BID 30 Days #60 tab 10/09/21 Unknown Rx propranoloL [Inderal] 10 mg PO TID 30 Days #90 tab 10/09/21 Unknown Rx Apixaban [Eliquis] 5 mg PO Q12HR #60 tablet 11/12/21 Unknown Rx Ferrous Gluconate [Fergon 325 MG 324 mg PO TID #90 tablet 11/12/21 Unknown Rx tab] Furosemide [Lasix TAB] 40 mg PO QDAY #30 tablet 11/12/21 Unknown Rx Losartan [Cozaar] 25 mg PO QDAY #30 tablet 11/12/21 Unknown Rx carvediloL [Coreg] 3.125 mg PO BID #60 tablet 11/12/21 Unknown Rx Allergies Allergy/AdvReac Type Severity Reaction Status Date / Time acetaminophen [From Tylenol] Allergy CAUSES Verified 11/09/21 05:13 ISSUE WITH LIVER Antihistamines - Alkylamine Allergy Shortness Verified 11/09/21 05:13 of Breath codeine Allergy Headache Verified 11/09/21 05:13 Penicillins Allergy Angioedema Verified 11/09/21 05:13 Sulfa (Sulfonamide Allergy Rash Verified 11/09/21 05:13 Antibiotics) ANTIBIOTICS Allergy Severe EXTREME Uncoded 11/09/21 05:13 STOMACH PAIN ED Review of Systems ROS: Stated complaint: RONN Other details as noted in HPI Comment: All other systems reviewed and negative Respiratory: shortness of breath, SOB with exertion, SOB at rest Cardiovascular: denies: chest pain, palpitations ED Past Medical Hx - Past Medical History Previous Medical History?: Yes Hx Hypertension: Yes Hx Heart Attack/AMI: No (pt denies) Hx Congestive Heart Failure: Yes Hx Diabetes: Yes Hx Deep Vein Thrombosis: No Hx GERD: Yes Hx Liver Disease: No Hx Renal Disease: No Hx Sickle Cell Disease: No Hx Seizures: No Hx COPD: Yes Additional medical history: hyperlipidemia - Surgical History Past Surgical History?: Yes Hx Open Heart Surgery: Yes (2014) Hx Pacemaker: No Hx Internal Defibrillator: No Additional Surgical History: Neck surgery, back surgery, stents placed in legs?, L leg amputation - Social History Smoking Status: Unknown if ever smoked - Medications Home Medications: Home Medications Medication Instructions Recorded Confirmed Last Taken Type DULoxetine [Cymbalta] 30 mg PO BID 10/06/21 10/06/21 Unknown History Omeprazole 40 mg PO DAILY 10/06/21 10/06/21 Unknown History Primidone [Mysoline] 50 mg PO BID 10/06/21 10/06/21 Unknown History glipiZIDE [Glucotrol] 10 mg PO DAILY 10/06/21 10/06/21 Unknown History Citalopram [Celexa] 20 mg PO DAILY 30 Days #30 tablet 10/09/21 Unknown Rx Gabapentin 900 mg PO BID 30 Days #180 capsule 10/09/21 Unknown Rx Metformin HCl [metFORMIN] 1,000 mg PO BID 30 Days #60 tab 10/09/21 Unknown Rx Rosuvastatin (Nf) [Crestor] 10 mg PO QHS 30 Days #60 tab 10/09/21 Unknown Rx levETIRAcetam [Keppra TAB] 500 mg PO BID 30 Days #60 tab 10/09/21 Unknown Rx propranoloL [Inderal] 10 mg PO TID 30 Days #90 tab 10/09/21 Unknown Rx Apixaban [Eliquis] 5 mg PO Q12HR #60 tablet 11/12/21 Unknown Rx Ferrous Gluconate [Fergon 325 MG 324 mg PO TID #90 tablet 11/12/21 Unknown Rx tab] Furosemide [Lasix TAB] 40 mg PO QDAY #30 tablet 11/12/21 Unknown Rx Losartan [Cozaar] 25 mg PO QDAY #30 tablet 11/12/21 Unknown Rx carvediloL [Coreg] 3.125 mg PO BID #60 tablet 11/12/21 Unknown Rx ED Physical Exam - General Limitations: No Limitations General appearance: alert, in no apparent distress - Head Head exam: Present: normal inspection - Eye Eye exam: Present: normal appearance Pupils: Present: normal accommodation - ENT ENT exam: Present: normal exam, normal orophraynx, mucous membranes moist - Neck Neck exam: Present: normal inspection, full ROM. Absent: tenderness - Respiratory Respiratory exam: Present: normal lung sounds bilaterally, wheezes (Diffused). Absent: respiratory distress, accessory muscle use - Cardiovascular Cardiovascular Exam: Present: regular rate, normal rhythm, normal heart sounds - GI/Abdominal GI/Abdominal exam: Present: soft, normal bowel sounds. Absent: distended, tenderness - Extremities Exam Extremities exam: Present: normal capillary refill. Absent: tenderness, pedal edema - Back Exam Back exam: Absent: tenderness - Neurological Exam Neurological exam: Present: alert, oriented X3 - Psychiatric Psychiatric exam: Present: normal affect, normal mood - Skin Skin exam: Present: warm, normal color ED Course Vital Signs 11/13/21 11/13/21 11/13/21 20:35 20:51 23:24 Temperature 97.9 F 98 F Pulse Rate 78 78 85 Respiratory 18 16 15 Rate Blood Pressure 162/87 130/68 139/53 [Right] O2 Sat by Pulse 99 80 L 99 Oximetry ED Medical Decision Making - Lab Data Result diagrams: 11/13/21 22:56 11/13/21 22:56 - EKG Data -: EKG Interpreted by Me EKG shows normal: sinus rhythm Rate: normal - EKG Data 11/13/21 22:49 Noted with normal sinus rhythm at a rate of 89 beats per minutes, with prolonged QT and no ST elevation or depression in this abnormal ECG. - Medical Decision Making Here with shortness of breath--among differential diagnosis could be but not limited to acute exacerbation of COPD, myocardiac infarction, pulmonary embolism, acute exacerbation of asthma, pneumothorax, pneumonia or Viral or Bacterial Upper/Lower respiratory tract infection or other systemic infection.--To rule out the above will go ahead and order EKG, cardiac enzyme including troponin, BNP, CKMB, chest x-ray, CBC, CMP, UA and or D-dimer. In the meantime we will go ahead and treat with DuoNeb, 125 mg of Solu-Medrol, and will make a case for antibiotics Levaquin considering likely cause to be acute COPD exacerbation and continue to monitor the patient. Labs reviewed and noted with low NA+, Ca+, Mg+ and H&H which appears to be chronic Not starting her new medications is likely the cause of the resent symptoms -- Coreg, Losartan, Eliquis and Forrous and Lasix -- I strongly encouraged patient to fill and starts taken her medication as prescribed Critical care attestation.: If time is entered above; I have spent that time in minutes in the direct care of this critically ill patient, excluding procedure time. ED Disposition Clinical Impression: COPD with exacerbation, Anemia, chronic disease, Chronic hyponatremia, Hypocalcemia, Hypomagnesemia Disposition: 01 HOME / SELF CARE / HOMELESS Is pt being admited?: No Does the pt Need Aspirin: No Condition: Stable Instructions: Chronic Obstructive Pulmonary Disease (ED), Chronic Obstructive Pulmonary Disease Exacerbation, [id number], Asthma, Adult, [id number], Hypomagnesemia, Hypocalcemia, Adult Additional Instructions: It is very important that you fill your new medication and start taking it to help your symptoms Call and follow-up with your primary doctor in the next 3 to 5 days for progress Call or return to emergency room if your symptoms worsen Time of Disposition: 01:52
--- NOTE | 2021-11-13 23:10 | XRay Report ---
CHEST 1 VIEW INDICATION / CLINICAL INFORMATION: Dyspnea STUDY TIME: 2252 COMPARISON: 11/11/2021 FINDINGS: SUPPORT DEVICES: Spinal stimulators again seen HEART / MEDIASTINUM: Stable. LUNGS / PLEURA: Congestive changes and pulmonary edema continue with slight improvement noted. Bilate ral small pleural effusions are again seen. No pneumothorax. ADDITIONAL FINDINGS: No significant additional findings. Signer Name: Garo Dumas MD Signed: 11/13/2021 11:06 PM Workstation Name: [id number]
[2021-11-13 23:15] LABS: Basophils % (Auto) 0.5 % (0.0-1.8); Eosinophils # (Auto) 0.2 K/mm3 (0.0-0.4); Eosinophils % (Auto) 3.5 % (0.0-4.3); Hematocrit 22.6 % (30.3-42.9); Hemoglobin 7.3 gm/dl (10.1-14.3); Lymphocytes # (Auto) 0.4 K/mm3 (1.2-5.4); Lymphocytes % (Auto) 7.9 % (13.4-35.0); Mean Corpuscular HGB Conc 32 % (30-34); Mean Corpuscular Volume 79 fl (79-97); Monocytes # (Auto) 0.4 K/mm3 (0.0-0.8); Monocytes % (Auto) 8.2 % (0.0-7.3); Platelet Count 333 K/mm3 (140-440); Red Blood Count 2.86 M/mm3 (3.65-5.03)
[2021-11-13 23:23] LABS: Red Cell Distribution Width 20.5 % (13.2-15.2)
[2021-11-13 23:24] LABS: Alanine Aminotransferase 11 units/L (7-56); Albumin 2.4 g/dL (3.9-5); Blood Urea Nitrogen 13 mg/dL (7-17); Calcium 7.5 mg/dL (8.4-10.2); Hemolysis Index 4
[2021-11-13 23:29] LABS: BUN/Creatinine Ratio 22
[2021-11-13 23:44] LABS: INR 0.95 (0.87-1.13)
[2021-11-13 23:45] LABS: Partial Thromboplastin Time 28.3 Sec. (24.2-36.6)
[2021-11-14] MEDS ORDERED: IPRATROPIUM 0.02% NEBU 2.5 ML IH ONE (00:59)
[2021-11-14] MEDS ORDERED: ALBUTEROL 2.5 MG/3 ML NEBU IH ONE (00:59)
[2021-11-14 01:32] LABS: ABG HCO3 25.6 mmol/L (20.0-26.0); ABG Methemoglobin 0.4 % (0.0-1.5); ABG Oxygen Saturation 97.1 % (95.0-99.0); ABG PCO2 26.6 mm Hg; ABG PO2 72.5 mm Hg (80.0-90.0)
[2021-11-14 01:51] VITALS: BP 170/63
[2021-11-14 01:56] LABS: Color,Urine Yellow (Yellow)
[2021-11-14 02:10] LABS: Bacteria,Urine 1+ /HPF (Negative); Mucus,Urine FEW /HPF
[2021-11-14 02:11] LABS: WBC,Urine > 182.0 /HPF (0.0-6.0)
[2021-11-14 02:13] LABS: ABG PH 7.602 pH Units (7.350-7.450)
--- NOTE | 2021-11-15 10:29 | Electrocardiograph Report ---
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
== END 2021-11-14 02:15 | disposition home or self-care (01) ==
LOC: ED 20:10
DX: J44.1 Chronic obstructive pulmonary disease with (acute) exacerbation (principal); J45.998 Other asthma; D64.9 Anemia, unspecified; E87.1 Hypo-osmolality and hyponatremia; E83.51 Hypocalcemia; I10 Essential (primary) hypertension; Z88.8 Allergy status to other drugs, medicaments and biological substances; Z88.2 Allergy status to sulfonamides; Z88.3 Allergy status to other anti-infective agents; E11.9 Type 2 diabetes mellitus without complications
CPT/HCPCS: 36415; 71045; 80053; 81001; 82803; 83735; 84484; 85025; 85610; 85730; 93005; 94640; 96374; 99285; J2930; 99284

== ENCOUNTER 2021-11-14 14:52 | Inpatient (IN) | payer MEDICARE ==
[2021-11-14] MEDS ORDERED: SODIUM CHLORIDE 0.9% 1000 ML 1,000 ML ONE (15:20)
[2021-11-14] MEDS ORDERED: SODIUM CHLORIDE 0.9% 1000 ML 1,000 ML IV ONE ×2 (15:22→17:35)
--- NOTE | 2021-11-14 16:29 | Emergency Department Report ---
ED Shortness of Breath HPI - General Chief Complaint: Dyspnea/Respdistress Stated Complaint: RESP DISTRESS Time Seen by Provider: 11/14/21 15:22 Source: patient, EMS Mode of arrival: Stretcher Limitations: No Limitations - History of Present Illness Initial Comments: Patient is a 71-year-old female recently admitted on 11/08 and discharged on 11/12 for acute hypoxemic respiratory failure, acute PE, lower extremity DVT. She is currently on Eliquis. Returns today with complaint of recurrent shortness of breath. She is tachycardic and hypotensive. EMS reports sats 50% on room air and placed her on CPAP. - Related Data Home Medications Medication Instructions Recorded Confirmed Last Taken DULoxetine [Cymbalta] 30 mg PO BID 10/06/21 10/06/21 Unknown Omeprazole 40 mg PO DAILY 10/06/21 10/06/21 Unknown Primidone [Mysoline] 50 mg PO BID 10/06/21 10/06/21 Unknown glipiZIDE [Glucotrol] 10 mg PO DAILY 10/06/21 10/06/21 Unknown Previous Rx's Medication Instructions Recorded Last Taken Type Citalopram [Celexa] 20 mg PO DAILY 30 Days #30 tablet 10/09/21 Unknown Rx Gabapentin 900 mg PO BID 30 Days #180 capsule 10/09/21 Unknown Rx Metformin HCl [metFORMIN] 1,000 mg PO BID 30 Days #60 tab 10/09/21 Unknown Rx Rosuvastatin (Nf) [Crestor] 10 mg PO QHS 30 Days #60 tab 10/09/21 Unknown Rx levETIRAcetam [Keppra TAB] 500 mg PO BID 30 Days #60 tab 10/09/21 Unknown Rx propranoloL [Inderal] 10 mg PO TID 30 Days #90 tab 10/09/21 Unknown Rx Apixaban [Eliquis] 5 mg PO Q12HR #60 tablet 11/12/21 Unknown Rx Ferrous Gluconate [Fergon 325 MG 324 mg PO TID #90 tablet 11/12/21 Unknown Rx tab] Furosemide [Lasix TAB] 40 mg PO QDAY #30 tablet 11/12/21 Unknown Rx Losartan [Cozaar] 25 mg PO QDAY #30 tablet 11/12/21 Unknown Rx carvediloL [Coreg] 3.125 mg PO BID #60 tablet 11/12/21 Unknown Rx Allergies Allergy/AdvReac Type Severity Reaction Status Date / Time acetaminophen [From Tylenol] Allergy CAUSES Verified 11/14/21 15:15 ISSUE WITH LIVER Antihistamines - Alkylamine Allergy Shortness Verified 11/14/21 15:15 of Breath codeine Allergy Headache Verified 11/14/21 15:15 Penicillins Allergy Angioedema Verified 11/14/21 15:15 Sulfa (Sulfonamide Allergy Rash Verified 11/14/21 15:15 Antibiotics) ANTIBIOTICS Allergy Severe EXTREME Uncoded 11/09/21 05:13 STOMACH PAIN ED Review of Systems ROS: Stated complaint: RESP DISTRESS Other details as noted in HPI Constitutional: denies: chills, fever Respiratory: shortness of breath Cardiovascular: denies: chest pain, palpitations Gastrointestinal: denies: abdominal pain, nausea, diarrhea Musculoskeletal: denies: back pain, joint swelling, arthralgia Skin: denies: rash, lesions Neurological: denies: headache, weakness, paresthesias Psychiatric: denies: anxiety, depression ED Past Medical Hx - Past Medical History Hx Hypertension: Yes Hx Heart Attack/AMI: No (pt denies) Hx Congestive Heart Failure: Yes Hx Diabetes: Yes Hx Deep Vein Thrombosis: No Hx GERD: Yes Hx Liver Disease: No Hx Renal Disease: No Hx Sickle Cell Disease: No Hx Seizures: No Hx COPD: Yes Additional medical history: hyperlipidemia - Surgical History Hx Open Heart Surgery: Yes (2014) Hx Pacemaker: No Hx Internal Defibrillator: No Additional Surgical History: Neck surgery, back surgery, stents placed in legs?, L leg amputation - Social History Smoking Status: Unknown if ever smoked - Medications Home Medications: Home Medications Medication Instructions Recorded Confirmed Last Taken Type DULoxetine [Cymbalta] 30 mg PO BID 10/06/21 10/06/21 Unknown History Omeprazole 40 mg PO DAILY 10/06/21 10/06/21 Unknown History Primidone [Mysoline] 50 mg PO BID 10/06/21 10/06/21 Unknown History glipiZIDE [Glucotrol] 10 mg PO DAILY 10/06/21 10/06/21 Unknown History Citalopram [Celexa] 20 mg PO DAILY 30 Days #30 tablet 10/09/21 Unknown Rx Gabapentin 900 mg PO BID 30 Days #180 capsule 10/09/21 Unknown Rx Metformin HCl [metFORMIN] 1,000 mg PO BID 30 Days #60 tab 10/09/21 Unknown Rx Rosuvastatin (Nf) [Crestor] 10 mg PO QHS 30 Days #60 tab 10/09/21 Unknown Rx levETIRAcetam [Keppra TAB] 500 mg PO BID 30 Days #60 tab 10/09/21 Unknown Rx propranoloL [Inderal] 10 mg PO TID 30 Days #90 tab 10/09/21 Unknown Rx Apixaban [Eliquis] 5 mg PO Q12HR #60 tablet 11/12/21 Unknown Rx Ferrous Gluconate [Fergon 325 MG 324 mg PO TID #90 tablet 11/12/21 Unknown Rx tab] Furosemide [Lasix TAB] 40 mg PO QDAY #30 tablet 11/12/21 Unknown Rx Losartan [Cozaar] 25 mg PO QDAY #30 tablet 11/12/21 Unknown Rx carvediloL [Coreg] 3.125 mg PO BID #60 tablet 11/12/21 Unknown Rx ED Physical Exam - General Limitations: No Limitations General appearance: alert, in no apparent distress - Head Head exam: Present: atraumatic, normocephalic - Respiratory Respiratory exam: Present: normal lung sounds bilaterally, respiratory distress, other (Patient on BiPAP) - Cardiovascular Cardiovascular Exam: Present: normal rhythm, tachycardia, normal heart sounds - GI/Abdominal GI/Abdominal exam: Present: soft. Absent: distended, tenderness - Rectal Rectal exam: Present: deferred - Extremities Exam Extremities exam: Present: other (Left AKA) - Neurological Exam Neurological exam: Present: alert, oriented X3 - Psychiatric Psychiatric exam: Present: normal affect, normal mood - Skin Skin exam: Present: warm, dry, intact, normal color ED Course Vital Signs 11/14/21 17:27 Pulse Rate 106 H Respiratory 34 H Rate Blood Pressure 66/43 O2 Sat by Pulse 96 Oximetry ED Medical Decision Making - Lab Data Result diagrams: 11/14/21 16:40 - Medical Decision Making Patient converted to BiPAP upon arrival. Labs obtained and reveal serum sodium of 129, glucose 426, magnesium 1.6, calcium 8.2, troponin 0.261, lactic acid 4.1. Patient given aggressive IV fluids and started on Levophed infusion for hypotension in the 60s. She was also given IV insulin. EKG reveals sinus tachycardia with no acute ischemic findings. ABG pending. Will admit to ICU. Critical care attestation.: If time is entered above; I have spent that time in minutes in the direct care of this critically ill patient, excluding procedure time. ED Disposition Clinical Impression: Respiratory failure, unspecified with hypoxia, Lactic acidosis, Elevated troponin Disposition: 09 ADMITTED INPATIENT Is pt being admited?: Yes Condition: Stable
[2021-11-14] MEDS ORDERED: NORepinephrine/NS 8 MG-250 ML 8 MG/250 ML INFUS..BTL IV SCH (17:00)
[2021-11-14 17:10] LABS: ABG Base Excess 0.5 mmol/L (-2.0-3.0); ABG Methemoglobin 0.5 % (0.0-1.5); ABG Oxygen Saturation 76.1 % (95.0-99.0); ABG PCO2 46.1 mm Hg; ABG PH 7.369 pH Units (7.350-7.450); ABG PO2 45.2 mm Hg (80.0-90.0)
[2021-11-14 17:13] LABS: Alanine Aminotransferase 29 units/L (7-56); Albumin 2.9 g/dL (3.9-5); Blood Urea Nitrogen 13 mg/dL (7-17); Calcium 8.2 mg/dL (8.4-10.2); Hemolysis Index 0
[2021-11-14 17:20] LABS: BUN/Creatinine Ratio 22
[2021-11-14 17:25] LABS: Hemoglobin 7.6 gm/dl (10.1-14.3); Mean Corpuscular HGB Conc 31 % (30-34); Mean Corpuscular Volume 80 fl (79-97); Platelet Count 404 K/mm3 (140-440); Red Blood Count 3.14 M/mm3 (3.65-5.03)
[2021-11-14] MEDS ORDERED: INSULIN REGULAR, HUMAN 100 UNITS/1 ML IV ONE (17:35)
[2021-11-14 17:41] LABS: Red Cell Distribution Width 20.2 % (13.2-15.2)
--- NOTE | 2021-11-14 18:16 | XRay Report ---
CHEST 1 VIEW 11/14/2021 4:14 PM INDICATION / CLINICAL INFORMATION: Dyspnea. COMPARISON: Previous day. FINDINGS: SUPPORT DEVICES: None. HEART / MEDIASTINUM: Stable status post previous median sternotomy. LUNGS / PLEURA: Persistent basilar effusions. Mild worsening edema and basilar opacity. No pneumothor ax. ADDITIONAL FINDINGS: No significant additional findings. IMPRESSION: Mild worsening. Signer Name: Obed Lozoya MD Signed: 11/14/2021 6:12 PM Workstation Name: [id number]
[2021-11-14 18:19] LABS: ABG Base Excess -0.3 mmol/L (-2.0-3.0); ABG HCO3 25.2 mmol/L (20.0-26.0); ABG Methemoglobin 0.5 % (0.0-1.5); ABG Oxygen Saturation 89.5 % (95.0-99.0); ABG PCO2 45.6 mm Hg; ABG PH 7.36 pH Units (7.350-7.450); ABG PO2 59.3 mm Hg (80.0-90.0)
[2021-11-14] MEDS: LORazepam 2 MG/ML VIAL IV PRN (18:23)
[2021-11-14 18:36] LABS: Basophils % (Manual) 0 % (0.0-1.8); Eosinophils % (Manual) 0 % (0.0-4.3); Total Cells Counted 100
[2021-11-14 18:37] LABS: Anisocytosis 1+; Burr Cells 1+; Hypochromasia 2+; Platelet Estimate Consistent w Auto; Target Cells 1+
[2021-11-14] MEDS ORDERED: oxyCODONE /ACETAMINOPHEN 5-325MG TAB PO PRN (21:49)
[2021-11-14] MEDS ORDERED: ACETAMINOPHEN 325 MG TAB PO PRN (21:49)
[2021-11-14] MEDS ORDERED: MORPHINE 2 MG/1 ML INJ IV PRN (21:49)
[2021-11-14] MEDS ORDERED: METOCLOPRAMIDE 10 MG/2 ML INJ IV PRN (21:49)
[2021-11-14] MEDS ORDERED: ONDANSETRON 4 MG/2 ML INJ IV PRN (21:49)
[2021-11-14] MEDS ORDERED: HEPARIN 10,000 UNITS/10 ML VIAL IV PRN (21:53)
[2021-11-14] MEDS ORDERED: HEPARIN 10,000 UNITS/10 ML VIAL IV ONE (21:53)
--- NOTE | 2021-11-14 21:55 | History and Physical Report ---
History of Present Illness Date of examination: 11/14/21 Date of admission: 11/14/2021 Chief complaint: Acute shortness of breath for 1 day History of present illness: Patient is a 71-year-old female recently admitted on 11/08 and discharged on 11/12 for acute hypoxemic respiratory failure, acute PE, lower extremity DVT. She is currently on Eliquis. Returns today with complaint of recurrent shortness of breath. She is tachycardic and hypotensive. EMS reports sats 50% on room air and placed her on CPAP. - - Past Medical History --Hypertension: Yes --Congestive Heart Failure: Yes --Diabetes: Yes --GERD: Yes --COPD: Yes --Additional medical history: hyperlipidemia - Surgical History --Open Heart Surgery: Yes (2014) --Additional Surgical History: Neck surgery, back surgery, stents placed in legs?, L leg amputation - Social History --Smoking Status: Unknown if ever smoked -Family history htn Review of Systems ROS: Stated complaint: RESP DISTRESS Other details as noted in HPI Constitutional: denies: chills, fever Respiratory: shortness of breath Cardiovascular: denies: chest pain, palpitations Gastrointestinal: denies: abdominal pain, nausea, diarrhea Musculoskeletal: denies: back pain, joint swelling, arthralgia Skin: denies: rash, lesions Neurological: denies: headache, weakness, paresthesias Psychiatric: denies: anxiety, depression Medications and Allergies Allergies Allergy/AdvReac Type Severity Reaction Status Date / Time acetaminophen [From Tylenol] Allergy CAUSES Verified 11/14/21 15:15 ISSUE WITH LIVER Antihistamines - Alkylamine Allergy Shortness Verified 11/14/21 15:15 of Breath codeine Allergy Headache Verified 11/14/21 15:15 Penicillins Allergy Angioedema Verified 11/14/21 15:15 Sulfa (Sulfonamide Allergy Rash Verified 11/14/21 15:15 Antibiotics) ANTIBIOTICS Allergy Severe EXTREME Uncoded 11/09/21 05:13 STOMACH PAIN Home Medications Medication Instructions Recorded Confirmed Last Taken Type DULoxetine [Cymbalta] 30 mg PO BID 10/06/21 10/06/21 Unknown History Omeprazole 40 mg PO DAILY 10/06/21 10/06/21 Unknown History Primidone [Mysoline] 50 mg PO BID 10/06/21 10/06/21 Unknown History glipiZIDE [Glucotrol] 10 mg PO DAILY 10/06/21 10/06/21 Unknown History Citalopram [Celexa] 20 mg PO DAILY 30 Days #30 tablet 10/09/21 Unknown Rx Gabapentin 900 mg PO BID 30 Days #180 capsule 10/09/21 Unknown Rx Metformin HCl [metFORMIN] 1,000 mg PO BID 30 Days #60 tab 10/09/21 Unknown Rx Rosuvastatin (Nf) [Crestor] 10 mg PO QHS 30 Days #60 tab 10/09/21 Unknown Rx levETIRAcetam [Keppra TAB] 500 mg PO BID 30 Days #60 tab 10/09/21 Unknown Rx propranoloL [Inderal] 10 mg PO TID 30 Days #90 tab 10/09/21 Unknown Rx Apixaban [Eliquis] 5 mg PO Q12HR #60 tablet 11/12/21 Unknown Rx Ferrous Gluconate [Fergon 325 MG 324 mg PO TID #90 tablet 11/12/21 Unknown Rx tab] Furosemide [Lasix TAB] 40 mg PO QDAY #30 tablet 11/12/21 Unknown Rx Losartan [Cozaar] 25 mg PO QDAY #30 tablet 11/12/21 Unknown Rx carvediloL [Coreg] 3.125 mg PO BID #60 tablet 11/12/21 Unknown Rx Active Meds: Active Medications NORepinephrine/NS 8 MG-250 ML (Norepinephrine/Ns 8 Mg-250 Ml (Double Conc)) 8 mg in 250 mls @ 3.75 mls/hr IV TITRATE CHRISTOPHER; Protocol Last Admin: 11/14/21 16:53 Dose: 2 mcg/min, 3.75 mls/hr Lorazepam (Lorazepam 2 Mg/Ml Vial) 1 mg IV Q4H PRN PRN Reason: Agitation Last Admin: 11/14/21 18:23 Dose: 1 mg Exam - Constitutional Vitals: Temp Pulse Resp BP Pulse Ox 90 15 140/66 97 11/14/21 21:37 11/14/21 21:37 11/14/21 21:37 11/14/21 21:37 General appearance: Present: mild distress, well-nourished - EENT Eyes: Present: PERRL ENT: hearing intact, clear oral mucosa - Neck Neck: Present: supple, normal ROM - Respiratory Respiratory effort: normal Respiratory: bilateral: CTA - Cardiovascular Heart rate: 97 Rhythm: regular Heart Sounds: Present: S1 & S2. Absent: rub, click - Extremities Extremities: pulses symmetrical, No edema, abnormal (Left above-knee amputation) Extremity abnormal: other Peripheral Pulses: within normal limits - Abdominal General gastrointestinal: Present: soft, non-tender, non-distended, normal bowel sounds Female genitourinary: Present: normal - Integumentary Integumentary: Present: clear, warm, dry - Musculoskeletal Musculoskeletal: gait normal, strength equal bilaterally - Psychiatric Psychiatric: appropriate mood/affect, intact judgment & insight - Neurologic Neurologic: CNII-XII intact, moves all extremities HEART Score - HEART Score Troponin: Troponin T 0.261 ng/mL (0.00-0.029) H* D 11/14/21 16:40 Results - Labs CBC & Chem 7: 11/15/21 03:33 11/15/21 03:33 Labs: Laboratory Last Values WBC 8.9 K/mm3 (4.5-11.0) 11/14/21 16:40 RBC 3.14 M/mm3 (3.65-5.03) L 11/14/21 16:40 Hgb 7.6 gm/dl (10.1-14.3) L 11/14/21 16:40 Hct 25.0 % (30.3-42.9) L 11/14/21 16:40 MCV 80 fl (79-97) 11/14/21 16:40 MCH 24 pg (28-32) L 11/14/21 16:40 MCHC 31 % (30-34) 11/14/21 16:40 RDW 20.2 % (13.2-15.2) H 11/14/21 16:40 Plt Count 404 K/mm3 (140-440) 11/14/21 16:40 Add Manual Diff Complete 11/14/21 16:40 Total Counted 100 11/14/21 16:40 Seg Neutrophils % Head Grower 11/14/21 16:40 Seg Neuts % (Manual) 94.0 % (40.0-70.0) H 11/14/21 16:40 Band Neutrophils % 0 % 11/14/21 16:40 Lymphocytes % (Manual) 3.0 % (13.4-35.0) L 11/14/21 16:40 Reactive Lymphs % (Man) 0 % 11/14/21 16:40 Monocytes % (Manual) 3.0 % (0.0-7.3) 11/14/21 16:40 Eosinophils % (Manual) 0 % (0.0-4.3) 11/14/21 16:40 Basophils % (Manual) 0 % (0.0-1.8) 11/14/21 16:40 Metamyelocytes % 0 % 11/14/21 16:40 Myelocytes % 0 % 11/14/21 16:40 Promyelocytes % 0 % 11/14/21 16:40 Blast Cells % 0 % 11/14/21 16:40 Nucleated RBC % Not Reportable 11/14/21 16:40 Seg Neutrophils # Man 8.4 K/mm3 (1.8-7.7) H 11/14/21 16:40 Band Neutrophils # 0.0 K/mm3 11/14/21 16:40 Lymphocytes # (Manual) 0.3 K/mm3 (1.2-5.4) L 11/14/21 16:40 Abs React Lymphs (Man) 0.0 K/mm3 11/14/21 16:40 Monocytes # (Manual) 0.3 K/mm3 (0.0-0.8) 11/14/21 16:40 Eosinophils # (Manual) 0.0 K/mm3 (0.0-0.4) 11/14/21 16:40 Basophils # (Manual) 0.0 K/mm3 (0.0-0.1) 11/14/21 16:40 Metamyelocytes # 0.0 K/mm3 11/14/21 16:40 Myelocytes # 0.0 K/mm3 11/14/21 16:40 Promyelocytes # 0.0 K/mm3 11/14/21 16:40 Blast Cells # 0.0 K/mm3 11/14/21 16:40 WBC Morphology Not Reportable 11/14/21 16:40 Hypersegmented Neuts Not Reportable 11/14/21 16:40 Hyposegmented Neuts Not Reportable 11/14/21 16:40 Hypogranular Neuts Not Reportable 11/14/21 16:40 Smudge Cells Not Reportable 11/14/21 16:40 Toxic Granulation Not Reportable 11/14/21 16:40 Toxic Vacuolation Not Reportable 11/14/21 16:40 Dohle Bodies Not Reportable 11/14/21 16:40 Pelger-Huet Anomaly Not Reportable 11/14/21 16:40 Mery Rods Not Reportable 11/14/21 16:40 Platelet Estimate Consistent w auto 11/14/21 16:40 Clumped Platelets Not Reportable 11/14/21 16:40 Plt Clumps, EDTA Not Reportable 11/14/21 16:40 Large Platelets Not Reportable 11/14/21 16:40 Giant Platelets Not Reportable 11/14/21 16:40 Platelet Satelliting Not Reportable 11/14/21 16:40 Plt Morphology Comment Not Reportable 11/14/21 16:40 RBC Morphology Not Reportable 11/14/21 16:40 Dimorphic RBCs Not Reportable 11/14/21 16:40 Polychromasia Not Reportable 11/14/21 16:40 Hypochromasia 2+ 11/14/21 16:40 Poikilocytosis Not Reportable 11/14/21 16:40 Anisocytosis 1+ 11/14/21 16:40 Microcytosis Not Reportable 11/14/21 16:40 Macrocytosis Not Reportable 11/14/21 16:40 Spherocytes Not Reportable 11/14/21 16:40 Pappenheimer Bodies Not Reportable 11/14/21 16:40 Sickle Cells Not Reportable 11/14/21 16:40 Target Cells 1+ 11/14/21 16:40 Tear Drop Cells Not Reportable 11/14/21 16:40 Ovalocytes Not Reportable 11/14/21 16:40 Helmet Cells Not Reportable 11/14/21 16:40 [place] Bodies Not Reportable 11/14/21 16:40 [place] Rings Not Reportable 11/14/21 16:40 [place] Cells 1+ 11/14/21 16:40 Bite Cells Not Reportable 11/14/21 16:40 Crenated Cell Not Reportable 11/14/21 16:40 Elliptocytes Not Reportable 11/14/21 16:40 Acanthocytes (Spur) Not Reportable 11/14/21 16:40 Rouleaux Not Reportable 11/14/21 16:40 Hemoglobin C Crystals Not Reportable 11/14/21 16:40 Schistocytes Not Reportable 11/14/21 16:40 Malaria parasites Not Reportable 11/14/21 16:40 [place]ah Bodies Not Reportable 11/14/21 16:40 Hem Pathologist Commnt No 11/14/21 16:40 ABG pH 7.360 pH Units (7.350-7.450) 11/14/21 17:37 ABG pCO2 45.6 mm Hg 11/14/21 17:37 ABG pO2 59.3 mm Hg (80.0-90.0) L 11/14/21 17:37 ABG HCO3 25.2 mmol/L (20.0-26.0) 11/14/21 17:37 ABG O2 Saturation 89.5 % (95.0-99.0) L 11/14/21 17:37 ABG O2 Content 9.0 (0.0-44) 11/14/21 17:37 ABG Base Excess -0.3 mmol/L (-2.0-3.0) 11/14/21 17:37 ABG Hemoglobin 7.4 gm/dl (12.0-16.0) L 11/14/21 17:37 ABG Carboxyhemoglobin 3.5 % (0.0-5.0) 11/14/21 17:37 ABG Methemoglobin 0.5 % (0.0-1.5) 11/14/21 17:37 Oxyhemoglobin 85.9 % (95.0-99.0) L 11/14/21 17:37 FiO2 40 % 11/14/21 17:37 Sodium 129 mmol/L (137-145) L 11/14/21 16:40 Potassium 4.0 mmol/L (3.6-5.0) 11/14/21 16:40 Chloride 90.8 mmol/L (98-107) L 11/14/21 16:40 Carbon Dioxide 27 mmol/L (22-30) 11/14/21 16:40 Anion Gap 15 mmol/L 11/14/21 16:40 BUN 13 mg/dL (7-17) 11/14/21 16:40 Creatinine 0.6 mg/dL (0.6-1.2) 11/14/21 16:40 Estimated GFR > 60 ml/min 11/14/21 16:40 BUN/Creatinine Ratio 22 % 11/14/21 16:40 Glucose 426 mg/dL (65-100) H 11/14/21 16:40 Lactic Acid 2.40 mmol/L (0.7-2.0) H* 11/14/21 19:50 Calcium 8.2 mg/dL (8.4-10.2) L 11/14/21 16:40 Magnesium 1.60 mg/dL (1.7-2.3) L 11/14/21 16:40 Total Bilirubin < 0.20 mg/dL (0.1-1.2) 11/14/21 16:40 AST 50 units/L (5-40) H 11/14/21 16:40 ALT 29 units/L (7-56) 11/14/21 16:40 Alkaline Phosphatase 152 units/L (35-129) H 11/14/21 16:40 Troponin T 0.261 ng/mL (0.00-0.029) H* D 11/14/21 16:40 Total Protein 5.5 g/dL (6.3-8.2) L 11/14/21 16:40 Albumin 2.9 g/dL (3.9-5) L 11/14/21 16:40 Albumin/Globulin Ratio 1.1 % 11/14/21 16:40 Short CBC 11/14/21 11/14/21 11/15/21 Range/Units 16:40 22:55 03:33 WBC 8.9 10.1 (4.5-11.0) K/mm3 Hgb 7.6 L 7.1 L 6.8 L (10.1-14.3) gm/dl Hct 25.0 L 23.0 L 22.3 L (30.3-42.9) % Plt Count 404 353 337 (140-440) K/mm3 BMP 11/14/21 11/15/21 16:40 03:33 Sodium 129 L 132 L Potassium 4.0 4.2 Chloride 90.8 L 97.8 L Carbon Dioxide 27 30 BUN 13 12 Creatinine 0.6 0.4 L Glucose 426 H 237 H Calcium 8.2 L 7.9 L Cardiac Enzymes 11/14/21 Range/Units 16:40 Troponin T 0.261 H* D (0.00-0.029) ng/mL Liver Function 11/14/21 11/15/21 Range/Units 16:40 03:33 Total Bilirubin < 0.20 < 0.20 (0.1-1.2) mg/dL AST 50 H 35 (5-40) units/L ALT 29 20 (7-56) units/L Alkaline Phosphatase 152 H 122 (35-129) units/L Albumin 2.9 L 2.5 L (3.9-5) g/dL Assessment and Plan Advance Directives: Yes (Full code) VTE prophylaxis?: Chemical Plan of care discussed with patient/family: Yes - Patient Problems (1) Respiratory failure with hypoxia Current Visit: Yes Status: Acute Qualifiers: Chronicity: acute Qualified Code(s): J96.01 - Acute respiratory failure with hypoxia Plan to address problem: Severe hypoxemia Recurrence of pulmonary embolism Needs IV heparin Eliquis not adequate At. (2) Acute pulmonary embolism Current Visit: Yes Status: Acute Qualifiers: Acute cor pulmonale presence: without acute cor pulmonale Plan to address problem: No RV strain On heparin drip (3) PAD (peripheral artery disease) Current Visit: Yes Status: Chronic Plan to address problem: Patient stents and left total knee amputation Vascular surgery consult if necessary (4) Hypertension Current Visit: Yes Status: Chronic Qualifiers: Hypertension type: primary hypertension Qualified Code(s): I10 - Essential (primary) hypertension Plan to address problem: Continue antihypertensives and adjust medications as necessary (5) T2DM (type 2 diabetes mellitus) Current Visit: Yes Status: Chronic Qualifiers: 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 use: unspecified half-way insulin use status Plan to address problem: Coverage for now Check globin A1c (6) GERD (gastroesophageal reflux disease) Current Visit: Yes Status: Chronic Qualifiers: Esophagitis presence: without esophagitis Qualified Code(s): K21.9 - Gastro-esophageal reflux disease without esophagitis Plan to address problem: On PPIs (7) DVT prophylaxis Current Visit: Yes Status: Acute Plan to address problem: On heparin drip and GI prophylaxis (8) Advance care planning Current Visit: Yes Status: Acute Plan to address problem: Disease education conducted, care plan discussed, diagnosis and prognosis discussed. Patient is in the patient is full code. Patient acknowledges understanding of the care plan. +30 minutes.
[2021-11-14] MEDS: FUROSEMIDE 40 MG TAB PO SCH (22:00)
[2021-11-14] MEDS: metFORMIN 500 MG TAB PO SCH (22:00)
[2021-11-14] MEDS: levETIRAcetam 500 MG TAB PO SCH (22:00)
[2021-11-14] MEDS: carvediloL 3.125 MG TAB PO SCH (22:00)
[2021-11-14] MEDS ORDERED: SODIUM CHLORIDE 0.9% 1000 ML 1,000 ML IV SCH (22:00)
[2021-11-14] MEDS: PRIMIDONE 50 MG TAB PO SCH (22:00)
[2021-11-14] MEDS: DULoxetine 30 MG CAP PO SCH (22:00)
[2021-11-14] MEDS: GABAPENTIN 300 MG CAP PO SCH (22:00)
[2021-11-14] MEDS: CITALOPRAM 20 MG TAB PO SCH (22:00)
[2021-11-14] MEDS: LOSARTAN 25 MG TAB PO SCH (22:00)
[2021-11-14] MEDS: HEPARIN/ 0.45% NACL DRIP 25,000 UNIT/500 ML BAG IV SCH (22:30)
[2021-11-14] MEDS: FAMOTIDINE 20 MG/2 ML INJ IV SCH (23:00)
[2021-11-14 23:22] LABS: Hemoglobin 7.1 gm/dl (10.1-14.3)
[2021-11-14 23:31] LABS: INR 0.91 (0.87-1.13); Partial Thromboplastin Time 25.6 Sec. (24.2-36.6)
[2021-11-15] MEDS: LORazepam 2 MG/ML VIAL IV PRN ×2 (00:30→09:40)
[2021-11-15 03:53] LABS: Basophils % (Auto) 0.2 % (0.0-1.8); Eosinophils % (Auto) 0.1 % (0.0-4.3); Hematocrit 22.3 % (30.3-42.9); Hemoglobin 6.8 gm/dl (10.1-14.3); Lymphocytes # (Auto) 0.5 K/mm3 (1.2-5.4); Lymphocytes % (Auto) 5.2 % (13.4-35.0); Mean Corpuscular HGB Conc 30 % (30-34); Mean Corpuscular Volume 79 fl (79-97); Monocytes # (Auto) 0.6 K/mm3 (0.0-0.8); Monocytes % (Auto) 5.4 % (0.0-7.3); Platelet Count 337 K/mm3 (140-440); Red Blood Count 2.81 M/mm3 (3.65-5.03)
[2021-11-15 04:04] LABS: Alanine Aminotransferase 20 units/L (7-56); Albumin 2.5 g/dL (3.9-5); Blood Urea Nitrogen 12 mg/dL (7-17); Calcium 7.9 mg/dL (8.4-10.2); Hemolysis Index 3
[2021-11-15 04:34] LABS: BUN/Creatinine Ratio 30
--- NOTE | 2021-11-15 08:31 | Event Note ---
Date: 11/15/21 Responded to code MET for patient Neelam Chavis in 469. Patient was hypoxic on O2 sat probe in 70's. Extremities were cool and patient was lethargic. Upon repositioning bipap and acquiring new sat probe, sats improved to low 90's. Sat probe having difficulty reporting accurate Spo2. Stat ABG ordered, awaiting completion by RT. Patient vital signs 190/100's, tachycardic 110. Instructed floor RN to transfer patient to IMCU. Patient was following commands on my subsequent encounter in the IMCU. She was Aox4. I discussed the possibility of intubation should the patient further decline, and patient was agreeable. Upon chart review, it appears that patient was here last week for 2 small non occlusive pulmonary embolism discovered on CTA of chest and has left femoral lower ext dvt. She also has a history of 2 v CAD and HFrEF. This admission, hgb noted to be low 6.8. Ordered 1 unit prbc and instructed RN to admin lasix dose after transfusion. I advised RN to continue heparin gtt at this time as well but we will continue to monitor for any acute signs/symptoms of bleeding. Attempted to reach contact in chart ([facility]) ,no response. Discussed case with primary attending Dr. Zamarripa.
[2021-11-15 08:57] LABS: ABG Base Excess -7.1 mmol/L (-2.0-3.0); ABG Methemoglobin 0.5 % (0.0-1.5); ABG PCO2 59.2 mm Hg; ABG PO2 57.2 mm Hg (80.0-90.0)
[2021-11-15] MEDS ORDERED: SODIUM CHLORIDE 0.9% 500 ML 500 ML IV SCH (09:00)
[2021-11-15 09:20] LABS: ABG PH 7.167 pH Units (7.350-7.450)
[2021-11-15] MEDS: levETIRAcetam 500 MG TAB PO SCH ×2 (09:39→21:06)
[2021-11-15] MEDS: GABAPENTIN 300 MG CAP PO SCH ×2 (09:39→21:06)
[2021-11-15] MEDS: CITALOPRAM 20 MG TAB PO SCH (09:39)
[2021-11-15] MEDS: DULoxetine 30 MG CAP PO SCH ×2 (09:39→21:06)
[2021-11-15] MEDS: LOSARTAN 25 MG TAB PO SCH (09:39)
[2021-11-15] MEDS: metFORMIN 500 MG TAB PO SCH ×2 (09:39→18:15)
[2021-11-15] MEDS: FAMOTIDINE 20 MG/2 ML INJ IV SCH (09:40)
[2021-11-15] MEDS: carvediloL 3.125 MG TAB PO SCH ×2 (09:40→21:05)
[2021-11-15] MEDS ORDERED: ' PO SCH (10:00)
--- NOTE | 2021-11-15 10:30 | Consultation ---
History of Present Illness Consult date: 11/15/21 Reason for consult: dyspnea, hypoxemia, pulmonary embolism History of present illness: Patient is a 71-year-old female recently admitted on 11/08 and discharged on 11/12 for acute hypoxemic respiratory failure, acute PE, lower extremity DVT. She is currently on Eliquis. Returns today with complaint of recurrent shortness of breath. She is tachycardic and hypotensive. EMS reports sats 50% on room air and placed her on BIPAP. Patient has history of COPD, HTN, CHF, Diabetes, GERD, and Hyperlipidemia. Patient has open heart surgery, Neck surgery, Back surgery, Stent placement in Legs, Left leg amputation. Patients smoking history, alcohol history and drug history is not known at this time. Allergic to acetaminophen, Antihistamines, Alkalamine, Codeine. Patient sleeping, not responding to verbal stimuli. Patient is on BIPAP 02/12, rate rate 10, FIO2 75%. and O2 saturation running 100%. ABG On FIO2 50%. ABG pH 7.167 pH Units (7.350-7.450) L* 11/15/21 08:23 ABG pCO2 59.2 mm Hg 11/15/21 08:23 ABG pO2 57.2 mm Hg (80.0-90.0) L 11/15/21 08:23 ABG O2 Saturation 76.0 % (95.0-99.0) L 11/15/21 08:23 Changed bipap settings 20/10, FIO2 75% and repeating blood gases. Patient afebrile. No leukocytosis. Blood pressure 100/44 , Pulse 87 , respirations 14. Patients HGB 6.9. Recommend Blood transfusion to bring HGB above 7,0. Chest xray 11/14/21 reported Persistent basilar effusions. Mild worsening edema and basilar opacity. No pneumothorax. Patient is on I/V Heparin, Protonix. Past History Past Medical History: CAD, COPD, diabetes, GERD, heart failure, hypertension, hyperlipidemia, pulmonary embolism Past Surgical History: CABG Medications and Allergies Allergies Allergy/AdvReac Type Severity Reaction Status Date / Time acetaminophen [From Tylenol] Allergy CAUSES Verified 11/14/21 15:15 ISSUE WITH LIVER Antihistamines - Alkylamine Allergy Shortness Verified 11/14/21 15:15 of Breath codeine Allergy Headache Verified 11/14/21 15:15 Penicillins Allergy Angioedema Verified 11/14/21 15:15 Sulfa (Sulfonamide Allergy Rash Verified 11/14/21 15:15 Antibiotics) ANTIBIOTICS Allergy Severe EXTREME Uncoded 11/09/21 05:13 STOMACH PAIN Home Medications Medication Instructions Recorded Confirmed Last Taken Type DULoxetine [Cymbalta] 30 mg PO BID 10/06/21 11/15/21 Unknown History Omeprazole 40 mg PO DAILY 10/06/21 11/15/21 Unknown History Primidone [Mysoline] 50 mg PO BID 10/06/21 11/15/21 Unknown History glipiZIDE [Glucotrol] 10 mg PO DAILY 10/06/21 11/15/21 Unknown History Citalopram [Celexa] 20 mg PO DAILY 30 Days #30 tablet 10/09/21 11/15/21 Unknown Rx Gabapentin 900 mg PO BID 30 Days #180 capsule 10/09/21 11/15/21 Unknown Rx Metformin HCl [metFORMIN] 1,000 mg PO BID 30 Days #60 tab 10/09/21 11/15/21 Unknown Rx Rosuvastatin (Nf) [Crestor] 10 mg PO QHS 30 Days #60 tab 10/09/21 11/15/21 Unknown Rx levETIRAcetam [Keppra TAB] 500 mg PO BID 30 Days #60 tab 10/09/21 11/15/21 Unknown Rx propranoloL [Inderal] 10 mg PO TID 30 Days #90 tab 10/09/21 11/15/21 Unknown Rx Apixaban [Eliquis] 5 mg PO Q12HR #60 tablet 11/12/21 11/15/21 Unknown Rx Ferrous Gluconate [Fergon 325 MG 324 mg PO TID #90 tablet 11/12/21 11/15/21 Unknown Rx tab] Furosemide [Lasix TAB] 40 mg PO QDAY #30 tablet 11/12/21 11/15/21 Unknown Rx Losartan [Cozaar] 25 mg PO QDAY #30 tablet 11/12/21 11/15/21 Unknown Rx carvediloL [Coreg] 3.125 mg PO BID #60 tablet 11/12/21 11/15/21 Unknown Rx Active Meds: Active Medications Atorvastatin Calcium (Atorvastatin 20 Mg Tab) 20 mg PO QHS [facility] Last Admin: 11/14/21 22:00 Dose: Not Given Carvedilol (Carvedilol 3.125 Mg Tab) 3.125 mg PO BID [facility] Last Admin: 11/15/21 09:40 Dose: 3.125 mg Citalopram Hydrobromide (Citalopram 20 Mg Tab) 20 mg PO DAILY [facility] Last Admin: 11/15/21 09:39 Dose: 20 mg Duloxetine HCl (Duloxetine 30 Mg Cap) 30 mg PO BID [facility] Last Admin: 11/15/21 09:39 Dose: 30 mg Famotidine (Famotidine 20 Mg/2 Ml Inj) 20 mg IV BID [facility] Last Admin: 11/15/21 09:40 Dose: 20 mg Ferrous Gluconate (Ferrous Gluconate 324 Mg Tab) 324 mg PO TID [facility] Furosemide (Furosemide 40 Mg Tab) 40 mg PO QDAY [facility] Last Admin: 11/14/21 22:00 Dose: Not Given Gabapentin (Gabapentin 300 Mg Cap) 900 mg PO BID [facility] Last Admin: 11/15/21 09:39 Dose: 900 mg Glipizide (Glipizide 10 Mg Tab) 10 mg PO DAILY@0800 [facility] Heparin Sodium (Porcine) (Heparin 10,000 Units/10 Ml Vial) 2,500 unit 40 unit/kg (2500 unit) IV Q6H PRN PRN Reason: Anti-Xa Assay < 0.1 units/ml Sodium Chloride (Nacl 0.9% 1000 Ml) 1,000 mls @ 75 mls/hr IV DIRECT [facility] Heparin Sodium/Sodium Chloride (Heparin/ 0.45% Nacl-25,000 Unit/500 Ml) 25,000 unit in 500 mls @ 18 mls/hr IV TITR [facility]; Protocol Last Titration: 11/15/21 06:17 Dose: 1,000 units/hr, 20 mls/hr Sodium Chloride (Nacl 0.9% 500 Ml) 500 mls @ 0 mls/hr IV ONCE@0900 [facility] Stop: 11/15/21 19:00 Levetiracetam (Levetiracetam 500 Mg Tab) 500 mg PO BID [facility] Last Admin: 11/15/21 09:39 Dose: 500 mg Lorazepam (Lorazepam 2 Mg/Ml Vial) 1 mg IV Q4H PRN PRN Reason: Agitation Last Admin: 11/15/21 09:40 Dose: 1 mg Losartan Potassium (Losartan 25 Mg Tab) 25 mg PO QDAY [facility] Last Admin: 11/15/21 09:39 Dose: 25 mg Metformin HCl (Metformin 500 Mg Tab) 1,000 mg PO BIDDIAB [facility] Last Admin: 11/15/21 09:39 Dose: 1,000 mg Metoclopramide HCl (Metoclopramide 10 Mg/2 Ml Inj) 10 mg IV Q6H PRN PRN Reason: Nausea And Vomiting Morphine Sulfate (Morphine 2 Mg/1 Ml Inj) 2 mg IV Q4H PRN PRN Reason: Pain, Moderate (4-6) Ondansetron HCl (Ondansetron 4 Mg/2 Ml Inj) 4 mg IV Q3H PRN PRN Reason: Nausea And Vomiting Oxycodone/Acetaminophen (Oxycodone /Acetaminophen 5-325mg Tab) 1 tab PO Q6H PRN PRN Reason: Pain, Moderate (4-6) Pantoprazole Sodium (') 40 mg PO DAILY [facility] Last Admin: 11/15/21 09:39 Dose: 40 mg Primidone (Primidone 50 Mg Tab) 50 mg PO BID [facility] Last Admin: 11/14/21 22:00 Dose: Not Given Propranolol HCl (Propranolol 10 Mg Tab) 10 mg PO TID [facility] Sodium Chloride (Sodium Chloride 0.9% 10 Ml Flush Syringe) 10 ml IV BID [facility] Last Admin: 11/15/21 09:40 Dose: 10 ml Sodium Chloride (Sodium Chloride 0.9% 10 Ml Flush Syringe) 10 ml IV PRN PRN PRN Reason: LINE FLUSH Review of Systems All systems: negative Physical Examination Vital signs: Vital Signs Pulse Resp Pulse Ox 107 H 35 H 99 11/14/21 15:11 11/14/21 15:11 11/14/21 15:11 General appearance: no acute distress, asleep, other (Sleeping on BIPAP.) Eyes: non-icteric ENT: oropharynx moist Neck: supple, no JVD Effort: mildly labored Ascultation: Bilateral: diminished breath sounds Cardiovascular: regular rate and rhythm Gastrointestinal: normoactive bowel sounds, soft, non-tender Integumentary: normal Extremities: no cyanosis, no edema Musculoskeletal: no deformities Gait: other (Canot evaluate at this time. Patient resting in bed.) non-focal exam, pupils equal and round other (Patient is in deep sleep.) Results - Laboratory Findings CBC and BMP: 11/15/21 03:33 11/15/21 03:33 ABG ABG pH 7.167 pH Units (7.350-7.450) L* 11/15/21 08:23 ABG pCO2 59.2 mm Hg 11/15/21 08:23 ABG pO2 57.2 mm Hg (80.0-90.0) L 11/15/21 08:23 ABG O2 Saturation 76.0 % (95.0-99.0) L 11/15/21 08:23 PT/INR, D-dimer PT 13.2 Sec. (12.2-14.9) 11/14/21 22:55 INR 0.91 (0.87-1.13) 11/14/21 22:55 Abnormal lab findings: Abnormal Labs 11/14/21 11/14/21 11/14/21 16:40 16:40 16:40 RBC 3.14 L Hgb 7.6 L Hct 25.0 L MCH 24 L RDW 20.2 H Lymph % (Auto) Lymph # (Auto) Seg Neutrophils % Seg Neuts % (Manual) 94.0 H Lymphocytes % (Manual) 3.0 L Seg Neutrophils # Seg Neutrophils # Man 8.4 H Lymphocytes # (Manual) 0.3 L Heparin Anti-Xa Level ABG pH ABG pO2 ABG O2 Saturation ABG Base Excess ABG Hemoglobin Oxyhemoglobin Sodium 129 L Chloride 90.8 L Creatinine Glucose 426 H POC Glucose Lactic Acid 4.10 H* Calcium 8.2 L Magnesium 1.60 L AST 50 H Alkaline Phosphatase 152 H Troponin T 0.261 H* D Total Protein 5.5 L Albumin 2.9 L 11/14/21 11/14/21 11/14/21 16:45 17:37 18:28 RBC Hgb Hct MCH RDW Lymph % (Auto) Lymph # (Auto) Seg Neutrophils % Seg Neuts % (Manual) Lymphocytes % (Manual) Seg Neutrophils # Seg Neutrophils # Man Lymphocytes # (Manual) Heparin Anti-Xa Level ABG pH ABG pO2 45.2 L 59.3 L ABG O2 Saturation 76.1 L 89.5 L ABG Base Excess ABG Hemoglobin 8.8 L 7.4 L Oxyhemoglobin 72.6 L 85.9 L Sodium Chloride Creatinine Glucose POC Glucose Lactic Acid 2.60 H* Calcium Magnesium AST Alkaline Phosphatase Troponin T Total Protein Albumin 11/14/21 11/14/21 11/15/21 19:50 22:55 03:33 RBC 2.81 L Hgb 7.1 L 6.8 L Hct 23.0 L 22.3 L MCH 24 L RDW 20.0 H Lymph % (Auto) 5.2 L Lymph # (Auto) 0.5 L Seg Neutrophils % 89.1 H Seg Neuts % (Manual) Lymphocytes % (Manual) Seg Neutrophils # 9.0 H Seg Neutrophils # Man Lymphocytes # (Manual) Heparin Anti-Xa Level ABG pH ABG pO2 ABG O2 Saturation ABG Base Excess ABG Hemoglobin Oxyhemoglobin Sodium Chloride Creatinine Glucose POC Glucose Lactic Acid 2.40 H* Calcium Magnesium AST Alkaline Phosphatase Troponin T Total Protein Albumin 11/15/21 11/15/21 11/15/21 03:33 05:27 08:02 RBC Hgb Hct MCH RDW Lymph % (Auto) Lymph # (Auto) Seg Neutrophils % Seg Neuts % (Manual) Lymphocytes % (Manual) Seg Neutrophils # Seg Neutrophils # Man Lymphocytes # (Manual) Heparin Anti-Xa Level < 0.10 L ABG pH ABG pO2 ABG O2 Saturation ABG Base Excess ABG Hemoglobin Oxyhemoglobin Sodium 132 L Chloride 97.8 L Creatinine 0.4 L Glucose 237 H POC Glucose 306 H Lactic Acid Calcium 7.9 L Magnesium AST Alkaline Phosphatase Troponin T Total Protein 4.8 L Albumin 2.5 L 11/15/21 11/15/21 08:16 08:23 RBC Hgb Hct MCH RDW Lymph % (Auto) Lymph # (Auto) Seg Neutrophils % Seg Neuts % (Manual) Lymphocytes % (Manual) Seg Neutrophils # Seg Neutrophils # Man Lymphocytes # (Manual) Heparin Anti-Xa Level ABG pH 7.167 L* ABG pO2 57.2 L ABG O2 Saturation 76.0 L ABG Base Excess -7.1 L ABG Hemoglobin 6.8 L Oxyhemoglobin 74.2 L Sodium Chloride Creatinine Glucose POC Glucose 347 H Lactic Acid Calcium Magnesium AST Alkaline Phosphatase Troponin T Total Protein Albumin - Diagnostic Findings Chest x-ray: report reviewed, image reviewed Additional studies: CHEST 1 VIEW 11/14/2021 4:14 PM INDICATION / CLINICAL INFORMATION: Dyspnea. COMPARISON: Previous day. FINDINGS: SUPPORT DEVICES: None. HEART / MEDIASTINUM: Stable status post previous median sternotomy. LUNGS / PLEURA: Persistent basilar effusions. Mild worsening edema and basilar opacity. No pneumothorax. ADDITIONAL FINDINGS: No significant additional findings. IMPRESSION: Mild worsening. Assessment and Plan Patient is a 71-year-old female recently admitted on 11/08 and discharged on 11/12 for acute hypoxemic respiratory failure, acute PE, lower extremity DVT. She is currently on Eliquis. Returns today with complaint of recurrent shortness of breath. She is tachycardic and hypotensive. EMS reports sats 50% on room air and placed her on BIPAP. Patient has history of COPD, HTN, CHF, Diabetes, GERD, and Hyperlipidemia. Patient has open heart surgery, Neck surgery, Back surgery, Stent placement in Legs, Left leg amputation. Patients smoking history, alcohol history and drug history is not known at this time. Allergic to acetaminophen, Antihistamines, Alkalamine, Codeine. Patient sleeping, not responding to verbal stimuli. Patient is on BIPAP 02/12, rate rate 10, FIO2 75%. and O2 saturation running 100%. ABG On FIO2 50%. ABG pH 7.167 pH Units (7.350-7.450) L* 11/15/21 08:23 ABG pCO2 59.2 mm Hg 11/15/21 08:23 ABG pO2 57.2 mm Hg (80.0-90.0) L 11/15/21 08:23 ABG O2 Saturation 76.0 % (95.0-99.0) L 11/15/21 08:23 Changed bipap settings 20/10, FIO2 75% and repeating blood gases. Patient afebrile. No leukocytosis. Blood pressure 100/44 , Pulse 87 , respirations 14. Patients HGB 6.9. Recommend Blood transfusion to bring HGB above 7,0. Chest xray 11/14/21 reported Persistent basilar effusions. Mild worsening edema and basilar opacity. No pneumothorax. Patient is on I/V Heparin, Protonix. I spent critical care time of 50 minutes, reviewing the chart, examine the patient., review labs and chest xray, talking to nursing staff, respiratory therapy and work up plan of trestment in this critically ill patient. - Patient Problems (1) Acute respiratory failure with hypoxia Current Visit: Yes Status: Acute (2) Acute pulmonary embolism Current Visit: Yes Status: Acute Qualifiers: Acute cor pulmonale presence: without acute cor pulmonale Plan to address problem: Patient was on Apixaban. Apixaban stopped. Patient started on I/V heparin. (3) GERD (gastroesophageal reflux disease) Current Visit: Yes Status: Chronic Qualifiers: Esophagitis presence: without esophagitis Qualified Code(s): K21.9 - Ga stro-esophageal reflux disease without esophagitis Plan to address problem: Patient is on protonix. (4) Hypertension Current Visit: Yes Status: Chronic Qualifiers: Hypertension type: primary hypertension Qualified Code(s): I10 - Essential (primary) hypertension Plan to address problem: Management as primary care. (5) T2DM (type 2 diabetes mellitus) Current Visit: Yes Status: Chronic Qualifiers: Diabetes mellitus fpc insulin use: unspecified fpc insulin use status Plan to address problem: Management as primary care. (6) Severe anemia Current Visit: No Status: Acute Plan to address problem: Patients to days HGB 6.8. Recommend blood transfusion to keep HGB above 7,0.
--- NOTE | 2021-11-15 10:35 | Electrocardiograph Report ---
[facility] Test Date: 2021-11-14 Test Time: 17:22:00 Pat Name: ANTONIO CHASE Department: Room: A266 1 Gender: F [employer] Picture [employer] Grip: 0000 : 1950 Requested By: NERY SCHAFER Order Number: [id number] Reading MD: Reji Domínguez Measurements Intervals [place] Rate: 115 P: 44 ID: [id number] QRS: 6 QRSD: 78 T: 127 QT: 305 QTc: 421 Interpretive Statements Sinus tachycardia Atrial premature complexes Left atrial enlargement Compared to ECG 11/13/2021 20:48:16 Atrial premature complex(es) now present Sinus rhythm no longer present Myocardial infarct finding no longer present Prolonged QT interval no longer present Electronically Signed On 11-15-2021 10:35:12 EDT by Reji Domínguez
[2021-11-15] MEDS: PRIMIDONE 50 MG TAB PO SCH ×2 (12:46→21:06)
[2021-11-15] MEDS: glipiZIDE 10 MG TAB PO SCH (12:46)
[2021-11-15] MEDS: PROPRANOLOL 10 MG TAB PO SCH ×3 (12:46→20:00)
[2021-11-15] MEDS: FERROUS GLUCONATE 324 MG TAB PO SCH ×3 (12:46→19:59)
[2021-11-15] MEDS: FUROSEMIDE 40 MG TAB PO SCH (12:46)
--- NOTE | 2021-11-15 14:27 | Progress Note ---
Assessment and Plan Critical care statement The high probability OF a clinically significant sudden or life-threatening deterioration of the cardiorespiratory system and endocrine system required my full and direct attention, intervention and postoperative management. The aggregate critical care time was 40 minutes. The time is in addition to time spent performing reported procedures but includes the followin: Data review and interpretation 2: Patient assessment and monitoring of vital signs 3: Documentation 4:: Medication orders and management - Patient Problems (1) Respiratory failure with hypoxia Current Visit: Yes Status: Acute Qualifiers: Chronicity: acute Qualified Code(s): J96.01 - Acute respiratory failure with hypoxia Plan to address problem: Severe hypoxemia Recurrence of pulmonary embolism Needs IV heparin Eliquis not adequate patient decompensated this a.m. Patient initiated on BiPAP (2) Acute pulmonary embolism Current Visit: Yes Status: Acute Qualifiers: Acute cor pulmonale presence: without acute cor pulmonale Plan to address problem: No RV strain On heparin drip Patient initiated on Coumadin (3) PAD (peripheral artery disease) Current Visit: Yes Status: Chronic Plan to address problem: Patient stents and left total knee amputation Vascular surgery consult if necessary (4) Hypertension Current Visit: Yes Status: Chronic Qualifiers: Hypertension type: primary hypertension Qualified Code(s): I10 - Essential (primary) hypertension Plan to address problem: Continue antihypertensives and adjust medications as necessary (5) T2DM (type 2 diabetes mellitus) Current Visit: Yes Status: Chronic Qualifiers: Diabetes mellitus long term care phlebotomist insulin use: unspecified fpc insulin use status Plan to address problem: Coverage for now Check globin A1c (6) GERD (gastroesophageal reflux disease) Current Visit: Yes Status: Chronic Qualifiers: Esophagitis presence: without esophagitis Qualified Code(s): K21.9 - Gastro-esophageal reflux disease without esophagitis Plan to address problem: On PPIs (7) DVT prophylaxis Current Visit: Yes Status: Acute Plan to address problem: On heparin drip and GI prophylaxis (8) Advance care planning Current Visit: Yes Status: Acute Plan to address problem: Disease education conducted, care plan discussed, diagnosis and prognosis discussed. Patient is in the patient is full code. Patient acknowledges understanding of the care plan. +30 minutes. Subjective Date of service: 11/15/21 Principal diagnosis: Acute respiratory failure with hypoxia, pulmonary embolism Interval history: Patient is a 71-year-old female recently admitted on 11/08 and discharged on 11/12 for acute hypoxemic respiratory failure, acute PE, lower extremity DVT. She is currently on Eliquis. Returns today with complaint of recurrent shortness of breath. She is tachycardic and hypotensive. EMS reports sats 50% on room air and placed her on CPAP. 11/15/2021 Patient decompensated this a.m. 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 - Objective - Constitutional Vitals: Vital Signs - 12hr 11/15/21 11/15/21 11/15/21 02:30 02:46 03:00 Pulse Rate 79 79 77 Respiratory 15 14 14 Rate Blood Pressure 198/105 198/105 198/105 O2 Sat by Pulse 97 97 96 Oximetry 11/15/21 11/15/21 11/15/21 03:16 03:30 03:46 Pulse Rate 77 80 74 Respiratory 15 18 14 Rate Blood Pressure 198/105 198/105 198/105 O2 Sat by Pulse 96 94 95 Oximetry 11/15/21 11/15/21 11/15/21 04:00 05:22 07:45 Pulse Rate 76 80 82 Respiratory 16 15 16 Rate Blood Pressure 198/105 O2 Sat by Pulse 94 97 96 Oximetry 11/15/21 11/15/21 11/15/21 09:39 09:40 11:50 Pulse Rate 117 H 117 H 88 Respiratory 16 Rate Blood Pressure 166/73 166/73 97/40 O2 Sat by Pulse 100 Oximetry General appearance: Present: severe distress, well-nourished - EENT Eyes: PERRL, EOM intact ENT: hearing intact, clear oral mucosa Ears: bilateral: normal - Neck Neck: supple, normal ROM - Respiratory Respiratory effort: normal Respiratory: bilateral: diminished, rhonchi, wheezing, negative: other - Breasts Breasts: normal - Cardiovascular Rhythm: regular Heart Sounds: Present: S1 & S2. Absent: gallop, rub Extremities: pulses intact, No edema, normal color, Full ROM, abnormal (Left above-knee amputation) Extremity abnormal: other (Left above-knee amputation) - Gastrointestinal General gastrointestinal: Present: soft, non-tender, non-distended, normal bowel sounds - Genitourinary Female genitourinary: normal - Integumentary Integumentary: clear, warm, dry - Musculoskeletal Musculoskeletal: 1, strength equal bilaterally - Neurologic Neurologic: moves all extremities - Psychiatric Psychiatric: memory intact, appropriate mood/affect, intact judgment & insight - Allied health notes Allied health notes reviewed: nursing, case management - Labs CBC & Chem 7: 11/15/21 03:33 11/15/21 03:33 Labs: Abnormal lab results 11/14/21 11/14/21 11/14/21 Range/Units 16:40 16:40 16:40 RBC 3.14 L (3.65-5.03) M/mm3 Hgb 7.6 L (10.1-14.3) gm/dl Hct 25.0 L (30.3-42.9) % MCH 24 L (28-32) pg RDW 20.2 H (13.2-15.2) % Lymph % (Auto) (13.4-35.0) % Lymph # (Auto) (1.2-5.4) K/mm3 Seg Neutrophils % (40.0-70.0) % Seg Neuts % (Manual) 94.0 H (40.0-70.0) % Lymphocytes % (Manual) 3.0 L (13.4-35.0) % Seg Neutrophils # (1.8-7.7) K/mm3 Seg Neutrophils # Man 8.4 H (1.8-7.7) K/mm3 Lymphocytes # (Manual) 0.3 L (1.2-5.4) K/mm3 Heparin Anti-Xa Level (0.3-0.7) U.I./ml ABG pH (7.350-7.450) pH Units ABG pO2 (80.0-90.0) mm Hg ABG O2 Saturation (95.0-99.0) % ABG Base Excess (-2.0-3.0) mmol/L ABG Hemoglobin (12.0-16.0) gm/dl Oxyhemoglobin (95.0-99.0) % Sodium 129 L (137-145) mmol/L Chloride 90.8 L (98-107) mmol/L Creatinine (0.6-1.2) mg/dL Glucose 426 H (65-100) mg/dL POC Glucose (70-105) mg/dL Lactic Acid 4.10 H* (0.7-2.0) mmol/L Calcium 8.2 L (8.4-10.2) mg/dL Magnesium 1.60 L (1.7-2.3) mg/dL AST 50 H (5-40) units/L Alkaline Phosphatase 152 H (35-129) units/L Troponin T 0.261 H* D (0.00-0.029) ng/mL Total Protein 5.5 L (6.3-8.2) g/dL Albumin 2.9 L (3.9-5) g/dL Crossmatch 11/14/21 11/14/21 11/14/21 Range/Units 16:45 17:37 18:28 RBC (3.65-5.03) M/mm3 Hgb (10.1-14.3) gm/dl Hct (30.3-42.9) % MCH (28-32) pg RDW (13.2-15.2) % Lymph % (Auto) (13.4-35.0) % Lymph # (Auto) (1.2-5.4) K/mm3 Seg Neutrophils % (40.0-70.0) % Seg Neuts % (Manual) (40.0-70.0) % Lymphocytes % (Manual) (13.4-35.0) % Seg Neutrophils # (1.8-7.7) K/mm3 Seg Neutrophils # Man (1.8-7.7) K/mm3 Lymphocytes # (Manual) (1.2-5.4) K/mm3 Heparin Anti-Xa Level (0.3-0.7) U.I./ml ABG pH (7.350-7.450) pH Units ABG pO2 45.2 L 59.3 L (80.0-90.0) mm Hg ABG O2 Saturation 76.1 L 89.5 L (95.0-99.0) % ABG Base Excess (-2.0-3.0) mmol/L ABG Hemoglobin 8.8 L 7.4 L (12.0-16.0) gm/dl Oxyhemoglobin 72.6 L 85.9 L (95.0-99.0) % Sodium (137-145) mmol/L Chloride (98-107) mmol/L Creatinine (0.6-1.2) mg/dL Glucose (65-100) mg/dL POC Glucose (70-105) mg/dL Lactic Acid 2.60 H* (0.7-2.0) mmol/L Calcium (8.4-10.2) mg/dL Magnesium (1.7-2.3) mg/dL AST (5-40) units/L Alkaline Phosphatase (35-129) units/L Troponin T (0.00-0.029) ng/mL Total Protein (6.3-8.2) g/dL Albumin (3.9-5) g/dL Crossmatch 11/14/21 11/14/21 11/15/21 Range/Units 19:50 22:55 03:33 RBC 2.81 L (3.65-5.03) M/mm3 Hgb 7.1 L 6.8 L (10.1-14.3) gm/dl Hct 23.0 L 22.3 L (30.3-42.9) % MCH 24 L (28-32) pg RDW 20.0 H (13.2-15.2) % Lymph % (Auto) 5.2 L (13.4-35.0) % Lymph # (Auto) 0.5 L (1.2-5.4) K/mm3 Seg Neutrophils % 89.1 H (40.0-70.0) % Seg Neuts % (Manual) (40.0-70.0) % Lymphocytes % (Manual) (13.4-35.0) % Seg Neutrophils # 9.0 H (1.8-7.7) K/mm3 Seg Neutrophils # Man (1.8-7.7) K/mm3 Lymphocytes # (Manual) (1.2-5.4) K/mm3 Heparin Anti-Xa Level (0.3-0.7) U.I./ml ABG pH (7.350-7.450) pH Units ABG pO2 (80.0-90.0) mm Hg ABG O2 Saturation (95.0-99.0) % ABG Base Excess (-2.0-3.0) mmol/L ABG Hemoglobin (12.0-16.0) gm/dl Oxyhemoglobin (95.0-99.0) % Sodium (137-145) mmol/L Chloride (98-107) mmol/L Creatinine (0.6-1.2) mg/dL Glucose (65-100) mg/dL POC Glucose (70-105) mg/dL Lactic Acid 2.40 H* (0.7-2.0) mmol/L Calcium (8.4-10.2) mg/dL Magnesium (1.7-2.3) mg/dL AST (5-40) units/L Alkaline Phosphatase (35-129) units/L Troponin T (0.00-0.029) ng/mL Total Protein (6.3-8.2) g/dL Albumin (3.9-5) g/dL Crossmatch 11/15/21 11/15/21 11/15/21 Range/Units 03:33 05:27 08:02 RBC (3.65-5.03) M/mm3 Hgb (10.1-14.3) gm/dl Hct (30.3-42.9) % MCH (28-32) pg RDW (13.2-15.2) % Lymph % (Auto) (13.4-35.0) % Lymph # (Auto) (1.2-5.4) K/mm3 Seg Neutrophils % (40.0-70.0) % Seg Neuts % (Manual) (40.0-70.0) % Lymphocytes % (Manual) (13.4-35.0) % Seg Neutrophils # (1.8-7.7) K/mm3 Seg Neutrophils # Man (1.8-7.7) K/mm3 Lymphocytes # (Manual) (1.2-5.4) K/mm3 Heparin Anti-Xa Level < 0.10 L (0.3-0.7) U.I./ml ABG pH (7.350-7.450) pH Units ABG pO2 (80.0-90.0) mm Hg ABG O2 Saturation (95.0-99.0) % ABG Base Excess (-2.0-3.0) mmol/L ABG Hemoglobin (12.0-16.0) gm/dl Oxyhemoglobin (95.0-99.0) % Sodium 132 L (137-145) mmol/L Chloride 97.8 L (98-107) mmol/L Creatinine 0.4 L (0.6-1.2) mg/dL Glucose 237 H (65-100) mg/dL POC Glucose 306 H (70-105) mg/dL Lactic Acid (0.7-2.0) mmol/L Calcium 7.9 L (8.4-10.2) mg/dL Magnesium (1.7-2.3) mg/dL AST (5-40) units/L Alkaline Phosphatase (35-129) units/L Troponin T (0.00-0.029) ng/mL Total Protein 4.8 L (6.3-8.2) g/dL Albumin 2.5 L (3.9-5) g/dL Crossmatch 11/15/21 11/15/21 11/15/21 Range/Units 08:16 08:23 09:38 RBC (3.65-5.03) M/mm3 Hgb (10.1-14.3) gm/dl Hct (30.3-42.9) % MCH (28-32) pg RDW (13.2-15.2) % Lymph % (Auto) (13.4-35.0) % Lymph # (Auto) (1.2-5.4) K/mm3 Seg Neutrophils % (40.0-70.0) % Seg Neuts % (Manual) (40.0-70.0) % Lymphocytes % (Manual) (13.4-35.0) % Seg Neutrophils # (1.8-7.7) K/mm3 Seg Neutrophils # Man (1.8-7.7) K/mm3 Lymphocytes # (Manual) (1.2-5.4) K/mm3 Heparin Anti-Xa Level (0.3-0.7) U.I./ml ABG pH 7.167 L* (7.350-7.450) pH Units ABG pO2 57.2 L (80.0-90.0) mm Hg ABG O2 Saturation 76.0 L (95.0-99.0) % ABG Base Excess -7.1 L (-2.0-3.0) mmol/L ABG Hemoglobin 6.8 L (12.0-16.0) gm/dl Oxyhemoglobin 74.2 L (95.0-99.0) % Sodium (137-145) mmol/L Chloride (98-107) mmol/L Creatinine (0.6-1.2) mg/dL Glucose (65-100) mg/dL POC Glucose 347 H (70-105) mg/dL Lactic Acid (0.7-2.0) mmol/L Calcium (8.4-10.2) mg/dL Magnesium (1.7-2.3) mg/dL AST (5-40) units/L Alkaline Phosphatase (35-129) units/L Troponin T (0.00-0.029) ng/mL Total Protein (6.3-8.2) g/dL Albumin (3.9-5) g/dL Crossmatch See Detail 11/15/21 Range/Units 11:51 RBC (3.65-5.03) M/mm3 Hgb (10.1-14.3) gm/dl Hct (30.3-42.9) % MCH (28-32) pg RDW (13.2-15.2) % Lymph % (Auto) (13.4-35.0) % Lymph # (Auto) (1.2-5.4) K/mm3 Seg Neutrophils % (40.0-70.0) % Seg Neuts % (Manual) (40.0-70.0) % Lymphocytes % (Manual) (13.4-35.0) % Seg Neutrophils # (1.8-7.7) K/mm3 Seg Neutrophils # Man (1.8-7.7) K/mm3 Lymphocytes # (Manual) (1.2-5.4) K/mm3 Heparin Anti-Xa Level (0.3-0.7) U.I./ml ABG pH (7.350-7.450) pH Units ABG pO2 (80.0-90.0) mm Hg ABG O2 Saturation (95.0-99.0) % ABG Base Excess (-2.0-3.0) mmol/L ABG Hemoglobin (12.0-16.0) gm/dl Oxyhemoglobin (95.0-99.0) % Sodium (137-145) mmol/L Chloride (98-107) mmol/L Creatinine (0.6-1.2) mg/dL Glucose (65-100) mg/dL POC Glucose 325 H (70-105) mg/dL Lactic Acid (0.7-2.0) mmol/L Calcium (8.4-10.2) mg/dL Magnesium (1.7-2.3) mg/dL AST (5-40) units/L Alkaline Phosphatase (35-129) units/L Troponin T (0.00-0.029) ng/mL Total Protein (6.3-8.2) g/dL Albumin (3.9-5) g/dL Crossmatch HEART Score - HEART Score Troponin: Troponin T 0.261 ng/mL (0.00-0.029) H* D 11/14/21 16:40
[2021-11-15 16:50] LABS: ABG Base Excess 2.1 mmol/L (-2.0-3.0); ABG HCO3 27.1 mmol/L (20.0-26.0); ABG Methemoglobin 0.5 % (0.0-1.5); ABG Oxygen Saturation 99.3 % (95.0-99.0); ABG PCO2 44.6 mm Hg; ABG PH 7.401 pH Units (7.350-7.450); ABG PO2 227.2 mm Hg (80.0-90.0)
[2021-11-15] MEDS ORDERED: INSULIN GLARGINE 100 UNITS/ML SUB-Q ONE (17:00)
[2021-11-15] MEDS: INSULIN LISPRO 100 UNIT/ML SUB-Q SCH (18:15)
[2021-11-15] MEDS: FUROSEMIDE 40 MG/4 ML INJ IV SCH (20:00)
[2021-11-16] MEDS: INSULIN LISPRO 100 UNIT/ML SUB-Q SCH ×4 (01:14→17:40)
[2021-11-16 04:52] LABS: Hematocrit 24.7 % (30.3-42.9); Hemoglobin 7.7 gm/dl (10.1-14.3)
[2021-11-16] MEDS: HEPARIN/ 0.45% NACL DRIP 25,000 UNIT/500 ML BAG IV SCH (05:38)
[2021-11-16] MEDS: FUROSEMIDE 40 MG/4 ML INJ IV SCH ×2 (05:46→17:25)
[2021-11-16] MEDS: LOSARTAN 25 MG TAB PO SCH (10:05)
[2021-11-16] MEDS: PROPRANOLOL 10 MG TAB PO SCH (10:06)
[2021-11-16] MEDS: FERROUS GLUCONATE 324 MG TAB PO SCH ×3 (10:06→20:48)
[2021-11-16] MEDS: metFORMIN 500 MG TAB PO SCH ×2 (10:06→17:25)
[2021-11-16] MEDS: GABAPENTIN 300 MG CAP PO SCH ×2 (10:06→21:43)
[2021-11-16] MEDS: DULoxetine 30 MG CAP PO SCH ×2 (10:06→21:43)
[2021-11-16] MEDS: levETIRAcetam 500 MG TAB PO SCH ×2 (10:06→21:43)
[2021-11-16] MEDS: glipiZIDE 10 MG TAB PO SCH (10:06)
[2021-11-16] MEDS: PRIMIDONE 50 MG TAB PO SCH ×2 (10:06→21:44)
[2021-11-16] MEDS: carvediloL 3.125 MG TAB PO SCH ×2 (10:07→21:43)
[2021-11-16] MEDS: CITALOPRAM 20 MG TAB PO SCH (10:07)
[2021-11-16] MEDS: PANTOPRAZOLE 40 MG TAB PO SCH (10:07)
--- NOTE | 2021-11-16 11:58 | Progress Note ---
Assessment and Plan Patient is a 71-year-old female recently admitted on 11/08 and discharged on 11/12 for acute hypoxemic respiratory failure, acute PE, lower extremity DVT. She is currently on Eliquis. Returns today with complaint of recurrent shortness of b reath. She is tachycardic and hypotensive. EMS reports sats 50% on room air and placed her on BIPAP. Patient has history of COPD, HTN, CHF, Diabetes, GERD, and Hyperlipidemia. Patient has open heart surgery, Neck surgery, Back surgery, Stent placement in Legs, Left leg amputation. Patients smoking history, alcohol history and drug history is not known at this time. Allergic to acetaminophen, Antihistamines, Alkalamine, Codeine. Patient sleepy but arousable. Patient presently resting on vapotherm , FIO2 55% and and O2 saturation running 100%. BIPAP 18/8, rate rate 10, FIO2 45% stand by in the room. Patient weak. Denies chest pain, shortness of breath or cough at this time. ABG On FIO2 50%. ABG pH 7.167 pH Units (7.350-7.450) L* 11/15/21 08:23 ABG pCO2 59.2 mm Hg 11/15/21 08:23 ABG pO2 57.2 mm Hg (80.0-90.0) L 11/15/21 08:23 ABG O2 Saturation 76.0 % (95.0-99.0) L 11/15/21 08:23 Changed bipap settings 20/10, FIO2 75% and repeating blood gases. Repeat ABGs on above BIPAP settings ABG pH 7.401 pH Units (7.350-7.450) 11/15/21 16:40 ABG pCO2 44.6 mm Hg 11/15/21 16:40 ABG pO2 227.2 mm Hg (80.0-90.0) H 11/15/21 16:40 ABG O2 Saturation 99.3 % (95.0-99.0) H 11/15/21 16:40 Decreased FIO2 to 45%, Decrease EPAP to 8. Patient afebrile. No leukocytosis. Blood pressure 133/63 , Pulse 83 , respirations 16. Patient received blood transfusion. To days 11/16/21 HGB 7.7 Chest xray 11/14/21 reported Persistent basilar effusions. Mild worsening edema and basilar opacity. No pneumothorax. Patient is on I/V Heparin, Protonix. I spent critical care time of 45 minutes, reviewing the chart, examine the patient., review labs and chest xray, talking to nursing staff, respiratory therapy and work up plan of trestment in this critically ill patient. - Patient Problems (1) Acute respiratory failure with hypoxia Current Visit: Yes Status: Acute Plan to address problem: Patient is on Vapotherm, FIO2 55%. BIPAP 18/8, rate 10, FIO2 45% stand by in the room. Patient is on I/V heparin. Continue protonix. (2) Acute pulmonary embolism Current Visit: Yes Status: Acute Qualifiers: Acute cor pulmonale presence: without acute cor pulmonale Plan to address problem: Patient was on Apixaban. Apixaban stopped. Patient started on I/V heparin. (3) GERD (gastroesophageal reflux disease) Current Visit: Yes Status: Chronic Qualifiers: Esophagitis presence: without esophagitis Qualified Code(s): K21.9 - Gastro-esophageal reflux disease without esophagitis Plan to address problem: Patient is on protonix. (4) Hypertension Current Visit: Yes Status: Chronic Qualifiers: Hypertension type: primary hypertension Qualified Code(s): I10 - Essential (primary) hypertension Plan to address problem: Management as primary care. 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 (6) Severe anemia Current Visit: No Status: Acute Plan to address problem: Patient received blood transfusion . To days 11/16/21 HGB 7.7. Subjective Date of service: 11/16/21 Principal diagnosis: Acute respiratory failure with hypoxia, pulmonary embolism Interval history: Patient is a 71-year-old female recently admitted on 11/08 and discharged on 11/12 for acute hypoxemic respiratory failure, acute PE, lower extremity DVT. She is currently on Eliquis. Returns today with complaint of recurrent shortness of breath. She is tachycardic and hypotensive. EMS reports sats 50% on room air and placed her on BIPAP. Patient has history of COPD, HTN, CHF, Diabetes, GERD, and Hyperlipidemia. Patient has open heart surgery, Neck surgery, Back surgery, Stent placement in Legs, Left leg amputation. Patients smoking history, alcohol history and drug history is not known at this time. Allergic to acetaminophen, Antihistamines, Alkalamine, Codeine. Patient sleepy but arousable. Patient presently resting on vapotherm , FIO2 55% and and O2 saturation running 100%. BIPAP 18/8, rate rate 10, FIO2 45% stand by in the room. Patient weak. Denies chest pain, shortness of breath or cough at this time. ABG On FIO2 50%. ABG pH 7.167 pH Units (7.350-7.450) L* 11/15/21 08:23 ABG pCO2 59.2 mm Hg 11/15/21 08:23 ABG pO2 57.2 mm Hg (80.0-90.0) L 11/15/21 08: ABG O2 Saturation 76.0 % (95.0-99.0) L 11/15/21 08:23 Changed bipap settings 20/10, FIO2 75% and repeating blood gases. Repeat ABGs on above BIPAP settings ABG pH 7.401 pH Units (7.350-7.450) 11/15/21 16:40 ABG pCO2 44.6 mm Hg 11/15/21 16:40 ABG pO2 227.2 mm Hg (80.0-90.0) H 11/15/21 16:40 ABG O2 Saturation 99.3 % (95.0-99.0) H 11/15/21 16:40 Decreased FIO2 to 45%, Decrease EPAP to 8. Patient afebrile. No leukocytosis. Blood pressure 133/63 , Pulse 83 , respirations 16. Patient received blood transfusion. To days 11/16/21 HGB 7.7 Chest xray 11/14/21 reported Persistent basilar effusions. Mild worsening edema and basilar opacity. No pneumothorax. Patient is on I/V Heparin, Protonix. Objective Vital Signs - 12hr 11/16/21 11/16/21 11/16/21 00:00 00:01 00:15 Temperature 99.2 F Pulse Rate 73 73 71 Pulse Rate [ 73 From Monitor] Respiratory 12 12 13 Rate Blood Pressure 109/53 109/53 O2 Sat by Pulse 100 96 96 Oximetry 11/16/21 11/16/21 11/16/21 00:30 00:45 01:01 Temperature Pulse Rate 69 70 74 Pulse Rate [ From Monitor] Respiratory 11 L 12 18 Rate Blood Pressure 107/50 111/52 115/55 O2 Sat by Pulse 96 96 94 Oximetry 11/16/21 11/16/21 11/16/21 01:15 01:30 01:45 Temperature Pulse Rate 74 69 71 Pulse Rate [ From Monitor] Respiratory 15 14 14 Rate Blood Pressure 123/58 113/52 122/56 O2 Sat by Pulse 97 97 95 Oximetry 11/16/21 11/16/21 11/16/21 02:00 02:15 02:30 Temperature Pulse Rate 68 68 68 Pulse Rate [ From Monitor] Respiratory 12 11 L 12 Rate Blood Pressure 112/50 115/52 120/54 O2 Sat by Pulse 96 96 97 Oximetry 11/16/21 11/16/21 11/16/21 02:45 03:00 03:15 Temperature Pulse Rate 71 69 66 Pulse Rate [ From Monitor] Respiratory 13 14 20 Rate Blood Pressure 117/52 119/53 110/49 O2 Sat by Pulse 96 97 97 Oximetry 11/16/21 11/16/21 11/16/21 03:26 03:30 03:45 Temperature Pulse Rate 68 69 68 Pulse Rate [ From Monitor] Respiratory 21 14 14 Rate Blood Pressure 110/49 118/55 117/54 O2 Sat by Pulse 97 95 97 Oximetry 11/16/21 11/16/21 11/16/21 04:00 04:15 04:30 Temperature Pulse Rate 71 69 71 Pulse Rate [ 71 From Monitor] Respiratory 13 13 18 Rate Blood Pressure 120/57 125/54 117/46 O2 Sat by Pulse 100 96 98 Oximetry 11/16/21 11/16/21 11/16/21 04:45 05:01 05:15 Temperature Pulse Rate 71 71 73 Pulse Rate [ From Monitor] Respiratory 21 22 21 Rate Blood Pressure 117/46 117/46 126/58 O2 Sat by Pulse 96 98 84 Oximetry 11/16/21 11/16/21 11/16/21 05:30 05:45 06:00 Temperature Pulse Rate 70 69 70 Pulse Rate [ From Monitor] Respiratory 14 13 13 Rate Blood Pressure 126/56 127/58 127/57 O2 Sat by Pulse 97 100 99 Oximetry 11/16/21 11/16/21 11/16/21 06:16 06:30 06:46 Temperature Pulse Rate 72 71 Pulse Rate [ From Monitor] Respiratory 14 14 15 Rate Blood Pressure 127/58 127/58 127/58 O2 Sat by Pulse 74 L 49 L 95 Oximetry 11/16/21 11/16/21 11/16/21 07:00 07:16 07:30 Temperature Pulse Rate 76 72 70 Pulse Rate [ From Monitor] Respiratory 17 17 14 Rate Blood Pressure 137/62 137/62 137/62 O2 Sat by Pulse 91 93 96 Oximetry 11/16/21 11/16/21 11/16/21 07:46 08:00 08:16 Temperature Pulse Rate 70 70 71 Pulse Rate [ 73 From Monitor] Respiratory 13 12 13 Rate Blood Pressure 137/62 140/59 140/59 O2 Sat by Pulse 95 96 95 Oximetry 11/16/21 11/16/21 11/16/21 08:30 08:31 08:46 Temperature 97.9 F Pulse Rate 73 78 Pulse Rate [ From Monitor] Respiratory 15 21 Rate Blood Pressure 140/59 140/59 O2 Sat by Pulse 96 Oximetry 11/16/21 11/16/21 11/16/21 08:52 09:00 09:16 Temperature Pulse Rate 87 90 Pulse Rate [ From Monitor] Respiratory 27 H 25 H Rate Blood Pressure 148/73 148/73 O2 Sat by Pulse 100 94 90 Oximetry 11/16/21 11/16/21 11/16/21 09:30 09:46 10:00 Temperature Pulse Rate 92 H 101 H 87 Pulse Rate [ From Monitor] Respiratory 24 27 H 15 Rate Blood Pressure 148/73 148/73 158/68 O2 Sat by Pulse 89 89 93 Oximetry 11/16/21 11/16/21 11/16/21 10:05 10:07 10:16 Temperature Pulse Rate 87 83 91 H Pulse Rate [ From Monitor] Respiratory 17 Rate Blood Pressure 158/68 158/68 158/68 O2 Sat by Pulse 96 Oximetry 11/16/21 11/16/21 11/16/21 10:30 10:46 11:00 Temperature Pulse Rate 80 78 76 Pulse Rate [ From Monitor] Respiratory 13 14 13 Rate Blood Pressure 158/68 158/68 136/59 O2 Sat by Pulse 96 97 98 Oximetry 11/16/21 11/16/21 11:16 11:51 Temperature Pulse Rate 80 Pulse Rate [ From Monitor] Respiratory 16 Rate Blood Pressure 136/59 O2 Sat by Pulse 96 98 Oximetry Constitutional: no acute distress, asleep, other (Patient sleeping but arousable.) Eyes: non-icteric ENT: oropharynx moist Neck: supple, no JVD Effort: mildly labored Ascultation: Bilateral: diminished breath sounds Cardiovascular: regular rate and rhythm Gastrointestinal: normoactive bowel sounds, soft, non-tender Integumentary: normal Extremities: no cyanosis, no edema Neurologic: non-focal exam, pupils equal and round Psychiatric: other (Patient sleeping but arousable.) CBC and BMP: 11/16/21 04:30 11/15/21 03:33 ABG, PT/INR, D-dimer: ABG ABG pH 7.401 pH Units (7.350-7.450) 11/15/21 16:40 ABG pCO2 44.6 mm Hg 11/15/21 16:40 ABG pO2 227.2 mm Hg (80.0-90.0) H 11/15/21 16:40 ABG O2 Saturation 99.3 % (95.0-99.0) H 11/15/21 16:40 PT/INR, D-dimer PT 13.2 Sec. (12.2-14.9) 11/14/21 22:55 INR 0.91 (0.87-1.13) 11/14/21 22:55 Abnormal lab findings: Abnormal Labs 11/14/21 11/14/21 11/14/21 16:40 16:40 16:40 RBC 3.14 L Hgb 7.6 L Hct 25.0 L MCH 24 L RDW 20.2 H Lymph % (Auto) Lymph # (Auto) Seg Neutrophils % Seg Neuts % (Manual) 94.0 H Lymphocytes % (Manual) 3.0 L Seg Neutrophils # Seg Neutrophils # Man 8.4 H Lymphocytes # (Manual) 0.3 L Heparin Anti-Xa Level ABG pH ABG pO2 ABG HCO3 ABG O2 Saturation ABG Base Excess ABG Hemoglobin Oxyhemoglobin Sodium 129 L Chloride 90.8 L Creatinine Glucose 426 H POC Glucose Lactic Acid 4.10 H* Calcium 8.2 L Magnesium 1.60 L AST 50 H Alkaline Phosphatase 152 H Troponin T 0.261 H* D Total Protein 5.5 L Albumin 2.9 L Crossmatch 11/14/21 11/14/21 11/14/21 16:45 17:37 18:28 RBC Hgb Hct MCH RDW Lymph % (Auto) Lymph # (Auto) Seg Neutrophils % Seg Neuts % (Manual) Lymphocytes % (Manual) Seg Neutrophils # Seg Neutrophils # Man Lymphocytes # (Manual) Heparin Anti-Xa Level ABG pH ABG pO2 45.2 L 59.3 L ABG HCO3 ABG O2 Saturation 76.1 L 89.5 L ABG Base Excess ABG Hemoglobin 8.8 L 7.4 L Oxyhemoglobin 72.6 L 85.9 L Sodium Chloride Creatinine Glucose POC Glucose Lactic Acid 2.60 H* Calcium Magnesium AST Alkaline Phosphatase Troponin T Total Protein Albumin Crossmatch 11/14/21 11/14/21 11/15/21 19:50 22:55 03:33 RBC 2.81 L Hgb 7.1 L 6.8 L Hct 23.0 L 22.3 L MCH 24 L RDW 20.0 H Lymph % (Auto) 5.2 L Lymph # (Auto) 0.5 L Seg Neutrophils % 89.1 H Seg Neuts % (Manual) Lymphocytes % (Manual) Seg Neutrophils # 9.0 H Seg Neutrophils # Man Lymphocytes # (Manual) Heparin Anti-Xa Level ABG pH ABG pO2 ABG HCO3 ABG O2 Saturation ABG Base Excess ABG Hemoglobin Oxyhemoglobin Sodium Chloride Creatinine Glucose POC Glucose Lactic Acid 2.40 H* Calcium Magnesium AST Alkaline Phosphatase Troponin T Total Protein Albumin Crossmatch 11/15/21 11/15/21 11/15/21 03:33 05:27 08:02 RBC Hgb Hct MCH RDW Lymph % (Auto) Lymph # (Auto) Seg Neutrophils % Seg Neuts % (Manual) Lymphocytes % (Manual) Seg Neutrophils # Seg Neutrophils # Man Lymphocytes # (Manual) Heparin Anti-Xa Level < 0.10 L ABG pH ABG pO2 ABG HCO3 ABG O2 Saturation ABG Base Excess ABG Hemoglobin Oxyhemoglobin Sodium 132 L Chloride 97.8 L Creatinine 0.4 L Glucose 237 H POC Glucose 306 H Lactic Acid Calcium 7.9 L Magnesium AST Alkaline Phosphatase Troponin T Total Protein 4.8 L Albumin 2.5 L Crossmatch 11/15/21 11/15/21 11/15/21 08:16 08:23 09:38 RBC Hgb Hct MCH RDW Lymph % (Auto) Lymph # (Auto) Seg Neutrophils % Seg Neuts % (Manual) Lymphocytes % (Manual) Seg Neutrophils # Seg Neutrophils # Man Lymphocytes # (Manual) Heparin Anti-Xa Level ABG pH 7.167 L* ABG pO2 57.2 L ABG HCO3 ABG O2 Saturation 76.0 L ABG Base Excess -7.1 L ABG Hemoglobin 6.8 L Oxyhemoglobin 74.2 L Sodium Chloride Creatinine Glucose POC Glucose 347 H Lactic Acid Calcium Magnesium AST Alkaline Phosphatase Troponin T Total Protein Albumin Crossmatch See Detail 11/15/21 11/15/21 11/15/21 11:51 13:54 16:40 RBC Hgb Hct MCH RDW Lymph % (Auto) Lymph # (Auto) Seg Neutrophils % Seg Neuts % (Manual) Lymphocytes % (Manual) Seg Neutrophils # Seg Neutrophils # Man Lymphocytes # (Manual) Heparin Anti-Xa Level 0.26 L ABG pH ABG pO2 227.2 H ABG HCO3 27.1 H ABG O2 Saturation 99.3 H ABG Base Excess ABG Hemoglobin 5.4 L Oxyhemoglobin Sodium Chloride Creatinine Glucose POC Glucose 325 H Lactic Acid Calcium Magnesium AST Alkaline Phosphatase Troponin T Total Protein Albumin Crossmatch 11/15/21 11/15/21 11/16/21 17:52 20:48 00:05 RBC Hgb Hct MCH RDW Lymph % (Auto) Lymph # (Auto) Seg Neutrophils % Seg Neuts % (Manual) Lymphocytes % (Manual) Seg Neutrophils # Seg Neutrophils # Man Lymphocytes # (Manual) Heparin Anti-Xa Level 0.12 L ABG pH ABG pO2 ABG HCO3 ABG O2 Saturation ABG Base Excess ABG Hemoglobin Oxyhemoglobin Sodium Chloride Creatinine Glucose POC Glucose 216 H 119 H Lactic Acid Calcium Magnesium AST Alkaline Phosphatase Troponin T Total Protein Albumin Crossmatch 11/16/21 11/16/21 11/16/21 04:30 04:30 05:57 RBC Hgb 7.7 L Hct 24.7 L MCH RDW Lymph % (Auto) Lymph # (Auto) Seg Neutrophils % Seg Neuts % (Manual) Lymphocytes % (Manual) Seg Neutrophils # Seg Neutrophils # Man Lymphocytes # (Manual) Heparin Anti-Xa Level < 0.10 L ABG pH ABG pO2 ABG HCO3 ABG O2 Saturation ABG Base Excess ABG Hemoglobin Oxyhemoglobin Sodium Chloride Creatinine Glucose POC Glucose 135 H Lactic Acid Calcium Magnesium AST Alkaline Phosphatase Troponin T Total Protein Albumin Crossmatch
--- NOTE | 2021-11-16 13:06 | Progress Note ---
Assessment and Plan Assessment and plan: Patient is a 71-year-old female recently admitted on 11/08 and discharged on 11/12 for acute hypoxemic respiratory failure, acute PE, lower extremity DVT. She is currently on Eliquis. Returns today with complaint of recurrent shortness of breath. She is tachycardic and hypotensive. EMS reports sats 50% on room air and placed her on CPAP. Hospital Course: 11/15/2021 Patient decompensated this a.m. Patient transferred to [facility] Patient on BiPAP Patient on IV heparin Pulmonary/embroidery specialist consulted 11/16: improved clinically. Still requiring BIPAP. RT will attempt HiFlo today. BIPAP qhs and prn. ABG last night : 7.// on 75%. Will continue diuresis with lasix IV bid. Continue heparin gtt for tx of small PE's identified last admit. Bridge to coumadin. Will follow pulmonary recommendations. ABG/CXR ordered for tomorrow AM. Assessment and plan #Acute Respiratory failure with hypoxia #Chronic Obstructive Pulmonary Disease Severe hypoxemia suspect large component of pulmonary edema. Chest xray 11/14/21 reported Persistent basilar effusions. Mild worsening edema and basilar opacity. No pneumothorax. Noted old pulmonary embolism Needs IV heparin Eliquis not adequate patient decompensated AM of 11/15. Patient initiated on BiPAP...will work to de-escalate to Lasix 40 mg IV bid AM CXR and ABG ordered. Nebulizer therapy with albuterol prn Pulmonary consulted # Subacute pulmonary embolism No RV strain On heparin drip Pulmonary embolism x 2 diagnosed last admission, nonocclusive small Possible failure on DOAC, patient initiated on Coumadin. INR goal 2-3. #Anemia - hgb: 6.9, improved Hgb 7.7 - transfused 1 unit prbc on 11/15 # PAD (peripheral artery disease) Patient stents and left total knee amputation Vascular surgery consult if necessary #Hypertension Continue antihypertensives and adjust medications as necessary # T2DM (type 2 diabetes mellitus) Coverage for now Check hemoglobin A1c # GERD (gastroesophageal reflux disease) On PPIs # DVT prophylaxis On heparin drip and GI prophylaxis # Advance care planning Disease education conducted, care plan discussed, diagnosis and prognosis discussed. Patient is in the patient is full code. Patient acknowledges understanding of the care plan. +30 minutes. The high probability of a clinically significant, sudden or life threatening deterioration of the [multi] system(s) required my full and direct attention, intervention and personal management. The aggregate critical care time was [60] minutes. This time is in addition to time spent performing reported procedures but includes the following: [x] Data Review and interpretation [x] Patient assessment and monitoring of vital signs [x] Documentation [x] Medication orders and management History Interval history: Resting comfortably with overlying bipap mask. Alert and oriented. does not appear to be in any respiratory distress. Asking for food. Hospitalist Physical - Physical exam Narrative exam: General appearance: Present: severe distress, well-nourished - EENT Eyes: PERRL, EOM intact ENT: hearing intact, clear oral mucosa Ears: bilateral: normal - Neck Neck: supple, normal ROM - Respiratory Respiratory effort: normal Respiratory: bilateral: diminished, rhonchi, wheezing, negative: other - Breasts Breasts: normal - Cardiovascular Rhythm: regular Heart Sounds: Present: S1 & S2. Absent: gallop, rub Extremities: pulses intact, No edema, normal color, Full ROM, abnormal (Left above-knee amputation) Extremity abnormal: other (Left above-knee amputation) - Gastrointestinal General gastrointestinal: Present: soft, non-tender, non-distended, normal bowel sounds - Genitourinary Female genitourinary: normal - Integumentary Integumentary: clear, warm, dry - Musculoskeletal Musculoskeletal: 1, strength equal bilaterally - Neurologic Neurologic: moves all extremities - Psychiatric Psychiatric: memory intact, appropriate mood/affect, intact judgment & insight - Allied health notes Allied health notes reviewed: nursing, case management - Constitutional Vitals: Temp Pulse Resp BP Pulse Ox 97.9 F 86 16 138/84 96 11/16/21 11:58 11/16/21 12:00 11/16/21 12:00 11/16/21 12:00 11/16/21 12:00 General appearance: Present: severe distress, well-nourished HEART Score - HEART Score Troponin: Troponin T 0.261 ng/mL (0.00-0.029) H* D 11/14/21 16:40 Results - Labs CBC & Chem 7: 11/16/21 04:30 11/15/21 03:33 Labs: Laboratory Last Values WBC 10.1 K/mm3 (4.5-11.0) 11/15/21 03:33 RBC 2.81 M/mm3 (3.65-5.03) L 11/15/21 03:33 Hgb 7.7 gm/dl (10.1-14.3) L 11/16/21 04:30 Hct 24.7 % (30.3-42.9) L 11/16/21 04:30 MCV 79 fl (79-97) 11/15/21 03:33 MCH 24 pg (28-32) L 11/15/21 03:33 MCHC 30 % (30-34) 11/15/21 03:33 RDW 20.0 % (13.2-15.2) H 11/15/21 03:33 Plt Count 335 K/mm3 (140-440) 11/16/21 04:30 Lymph % (Auto) 5.2 % (13.4-35.0) L 11/15/21 03:33 [place] % (Auto) 5.4 % (0.0-7.3) 11/15/21 03:33 Eos % (Auto) 0.1 % (0.0-4.3) 11/15/21 03:33 Baso % (Auto) 0.2 % (0.0-1.8) 11/15/21 03:33 Lymph # (Auto) 0.5 K/mm3 (1.2-5.4) L 11/15/21 03:33 [place] # (Auto) 0.6 K/mm3 (0.0-0.8) 11/15/21 03:33 Eos # (Auto) 0.0 K/mm3 (0.0-0.4) 11/15/21 03:33 Baso # (Auto) 0.0 K/mm3 (0.0-0.1) 11/15/21 03:33 Add Manual Diff Complete 11/14/21 16:40 Total Counted 100 11/14/21 16:40 Seg Neutrophils % 89.1 % (40.0-70.0) H 11/15/21 03:33 Seg Neuts % (Manual) 94.0 % (40.0-70.0) H 11/14/21 16:40 Band Neutrophils % 0 % 11/14/21 16:40 Lymphocytes % (Manual) 3.0 % (13.4-35.0) L 11/14/21 16:40 Reactive Lymphs % (Man) 0 % 11/14/21 16:40 Monocytes % (Manual) 3.0 % (0.0-7.3) 11/14/21 16:40 Eosinophils % (Manual) 0 % (0.0-4.3) 11/14/21 16:40 Basophils % (Manual) 0 % (0.0-1.8) 11/14/21 16:40 Metamyelocytes % 0 % 11/14/21 16:40 Myelocytes % 0 % 11/14/21 16:40 Promyelocytes % 0 % 11/14/21 16:40 Blast Cells % 0 % 11/14/21 16:40 Nucleated RBC % Not Reportable 11/14/21 16:40 Seg Neutrophils # 9.0 K/mm3 (1.8-7.7) H 11/15/21 03:33 Seg Neutrophils # Man 8.4 K/mm3 (1.8-7.7) H 11/14/21 16:40 Band Neutrophils # 0.0 K/mm3 11/14/21 16:40 Lymphocytes # (Manual) 0.3 K/mm3 (1.2-5.4) L 11/14/21 16:40 Abs React Lymphs (Man) 0.0 K/mm3 11/14/21 16:40 Monocytes # (Manual) 0.3 K/mm3 (0.0-0.8) 11/14/21 16:40 Eosinophils # (Manual) 0.0 K/mm3 (0.0-0.4) 11/14/21 16:40 Basophils # (Manual) 0.0 K/mm3 (0.0-0.1) 11/14/21 16:40 Metamyelocytes # 0.0 K/mm3 11/14/21 16:40 Myelocytes # 0.0 K/mm3 11/14/21 16:40 Promyelocytes # 0.0 K/mm3 11/14/21 16:40 Blast Cells # 0.0 K/mm3 11/14/21 16:40 WBC Morphology Not Reportable 11/14/21 16:40 Hypersegmented Neuts Not Reportable 11/14/21 16:40 Hyposegmented Neuts Not Reportable 11/14/21 16:40 Hypogranular Neuts Not Reportable 11/14/21 16:40 Smudge Cells Not Reportable 11/14/21 16:40 Toxic Granulation Not Reportable 11/14/21 16:40 Toxic Vacuolation Not Reportable 11/14/21 16:40 Dohle Bodies Not Reportable 11/14/21 16:40 Pelger-Huet Anomaly Not Reportable 11/14/21 16:40 Mery Rods Not Reportable 11/14/21 16:40 Platelet Estimate Consistent w auto 11/14/21 16:40 Clumped Platelets Not Reportable 11/14/21 16:40 Plt Clumps, EDTA Not Reportable 11/14/21 16:40 Large Platelets Not Reportable 11/14/21 16:40 Giant Platelets Not Reportable 11/14/21 16:40 Platelet Satelliting Not Reportable 11/14/21 16:40 Plt Morphology Comment Not Reportable 11/14/21 16:40 RBC Morphology Not Reportable 11/14/21 16:40 Dimorphic RBCs Not Reportable 11/14/21 16:40 Polychromasia Not Reportable 11/14/21 16:40 Hypochromasia 2+ 11/14/21 16:40 Poikilocytosis Not Reportable 11/14/21 16:40 Anisocytosis 1+ 11/14/21 16:40 Microcytosis Not Reportable 11/14/21 16:40 Macrocytosis Not Reportable 11/14/21 16:40 Spherocytes Not Reportable 11/14/21 16:40 Pappenheimer Bodies Not Reportable 11/14/21 16:40 Sickle Cells Not Reportable 11/14/21 16:40 Target Cells 1+ 11/14/21 16:40 Tear Drop Cells Not Reportable 11/14/21 16:40 Ovalocytes Not Reportable 11/14/21 16:40 Helmet Cells Not Reportable 11/14/21 16:40 [place] Bodies Not Reportable 11/14/21 16:40 [place] Rings Not Reportable 11/14/21 16:40 [place] Cells 1+ 11/14/21 16:40 Bite Cells Not Reportable 11/14/21 16:40 Crenated Cell Not Reportable 11/14/21 16:40 Elliptocytes Not Reportable 11/14/21 16:40 Acanthocytes (Spur) Not Reportable 11/14/21 16:40 Rouleaux Not Reportable 11/14/21 16:40 Hemoglobin C Crystals Not Reportable 11/14/21 16:40 Schistocytes Not Reportable 11/14/21 16:40 Malaria parasites Not Reportable 11/14/21 16:40 Jonah Bodies Not Reportable 11/14/21 16:40 Hem Pathologist Commnt No 11/14/21 16:40 PT 13.2 Sec. (12.2-14.9) 11/14/21 22:55 INR 0.91 (0.87-1.13) 11/14/21 22:55 APTT 25.6 Sec. (24.2-36.6) 11/14/21 22:55 Heparin Anti-Xa Level < 0.10 U.I./ml (0.3-0.7) L 11/16/21 04:30 ABG pH 7.401 pH Units (7.350-7.450) 11/15/21 16:40 ABG pCO2 44.6 mm Hg 11/15/21 16:40 ABG pO2 227.2 mm Hg (80.0-90.0) H 11/15/21 16:40 ABG HCO3 27.1 mmol/L (20.0-26.0) H 11/15/21 16:40 ABG O2 Saturation 99.3 % (95.0-99.0) H 11/15/21 16:40 ABG O2 Content 8.0 (0.0-44) 11/15/21 16:40 ABG Base Excess 2.1 mmol/L (-2.0-3.0) 11/15/21 16:40 ABG Hemoglobin 5.4 gm/dl (12.0-16.0) L 11/15/21 16:40 ABG Carboxyhemoglobin 1.7 % (0.0-5.0) 11/15/21 16:40 ABG Methemoglobin 0.5 % (0.0-1.5) 11/15/21 16:40 Oxyhemoglobin 97.2 % (95.0-99.0) 11/15/21 16:40 FiO2 75 % 11/15/21 16:40 Sodium 132 mmol/L (137-145) L 11/15/21 03:33 Potassium 4.2 mmol/L (3.6-5.0) 11/15/21 03:33 Chloride 97.8 mmol/L (98-107) L 11/15/21 03:33 Carbon Dioxide 30 mmol/L (22-30) 11/15/21 03:33 Anion Gap 8 mmol/L 11/15/21 03:33 BUN 12 mg/dL (7-17) 11/15/21 03:33 Creatinine 0.4 mg/dL (0.6-1.2) L 11/15/21 03:33 Estimated GFR > 60 ml/min 11/15/21 03:33 BUN/Creatinine Ratio 30 % 11/15/21 03:33 Glucose 237 mg/dL (65-100) H 11/15/21 03:33 POC Glucose 144 mg/dL (70-105) H 11/16/21 12:36 Lactic Acid 1.30 mmol/L (0.7-2.0) 11/15/21 03:33 Calcium 7.9 mg/dL (8.4-10.2) L 11/15/21 03:33 Magnesium 1.60 mg/dL (1.7-2.3) L 11/14/21 16:40 Total Bilirubin < 0.20 mg/dL (0.1-1.2) 11/15/21 03:33 AST 35 units/L (5-40) 11/15/21 03:33 ALT 20 units/L (7-56) 11/15/21 03:33 Alkaline Phosphatase 122 units/L (35-129) 11/15/21 03:33 Troponin T 0.261 ng/mL (0.00-0.029) H* D 11/14/21 16:40 Total Protein 4.8 g/dL (6.3-8.2) L 11/15/21 03:33 Albumin 2.5 g/dL (3.9-5) L 11/15/21 03:33 Albumin/Globulin Ratio 1.1 % 11/15/21 03:33 Coronavirus (PCR) Negative (Negative) 11/15/21 Unknown Blood Type A NEGATIVE 11/15/21 09:38 Antibody Screen Negative 11/15/21 09:38 Crossmatch See Detail 11/15/21 09:38 Sanchez/IV: Voiding Method External Female Catheter Active Medications - Current Medications Current Medications: Generic Name Dose Route Start Last Admin Trade Name Freq PRN Reason Stop Dose Admin Atorvastatin Calcium 20 mg 11/14/21 22:00 11/15/21 21:06 Atorvastatin 20 Mg Tab PO 20 mg QHS [facility] Administration Carvedilol 3.125 mg 11/14/21 22:00 11/16/21 10:07 Carvedilol 3.125 Mg Tab PO 3.125 mg BID CHRISTOPHER Administration Citalopram Hydrobromide 20 mg 11/14/21 22:00 11/16/21 10:07 Citalopram 20 Mg Tab PO 20 mg DAILY CHRISTOPHER Administration Duloxetine HCl 30 mg 11/14/21 22:00 11/16/21 10:06 Duloxetine 30 Mg Cap PO 30 mg BID CHRISTOPHER Administration Ferrous Gluconate 324 mg 11/15/21 08:00 11/16/21 10:06 Ferrous Gluconate 324 Mg Tab PO 324 mg TID CHRISTOPHER Administration Furosemide 40 mg 11/15/21 18:00 11/16/21 05:46 Furosemide 40 Mg/4 Ml Inj IV 40 mg 0600,1800 [facility] Administration Gabapentin 900 mg 11/14/21 22:00 11/16/21 10:06 Gabapentin 300 Mg Cap PO 900 mg BID [facility] Administration Glipizide 10 mg 11/15/21 08:00 11/16/21 10:06 Glipizide 10 Mg Tab PO 10 mg DAILY@0800 [facility] Administration Heparin Sodium (Porcine) 2,500 unit 11/14/21 21:53 Heparin 10,000 Units/10 Ml Vial 40 unit/kg (2500 unit) IV Q6H PRN Anti-Xa Assay < 0.1 units/ml Sodium Chloride 1,000 mls @ 75 mls/hr 11/14/21 22:00 Nacl 0.9% 1000 Ml IV DIRECT [facility] Heparin Sodium/Sodium Chloride 25,000 unit in 500 mls @ 18 mls/hr 11/14/21 22:00 11/16/21 05:38 Heparin/ 0.45% Nacl-25,000 Unit/500 Ml IV 1,150 units/hr TITR [facility] 23 mls/hr Administration Protocol 900 UNITS/HR Insulin Glargine 20 units 11/16/21 22:00 Insulin Glargine 100 Units/Ml SUB-Q QHS [facility] Insulin Human Lispro 0 unit 11/15/21 18:00 11/16/21 12:40 Insulin Lispro 100 Unit/Ml SUB-Q Not Given Q6HR [facility] Protocol Levetiracetam 500 mg 11/14/21 22:00 11/16/21 10:06 Levetiracetam 500 Mg Tab PO 500 mg BID [facility]STOP[facility] Administration Lorazepam 1 mg 11/14/21 17:50 11/15/21 09:40 Lorazepam 2 Mg/Ml Vial IV 1 mg Q4H PRN Administration Agitation Losartan Potassium 25 mg 11/14/21 22:00 11/16/21 10:05 Losartan 25 Mg Tab PO 25 mg QDAY [facility]STOP[facility] Administration Metformin HCl 1,000 mg 11/14/21 22:00 11/16/21 10:06 Metformin 500 Mg Tab PO 1,000 mg BIDDIAB [facility] Administration Metoclopramide HCl 10 mg 11/14/21 21:49 Metoclopramide 10 Mg/2 Ml Inj IV Q6H PRN Nausea And Vomiting Morphine Sulfate 2 mg 11/14/21 21:49 Morphine 2 Mg/1 Ml Inj IV Q4H PRN Pain, Moderate (4-6) Ondansetron HCl 4 mg 11/14/21 21:49 Ondansetron 4 Mg/2 Ml Inj IV Q3H PRN Nausea And Vomiting Oxycodone/Acetaminophen 1 tab 11/14/21 21:49 Oxycodone /Acetaminophen 5-325mg Tab PO Q6H PRN Pain, Moderate (4-6) Pantoprazole Sodium 40 mg 11/16/21 10:00 11/16/21 10:07 Pantoprazole 40 Mg Tab PO 40 mg DAILY [facility] Administration Primidone 50 mg 11/14/21 22:00 11/16/21 10:06 Primidone 50 Mg Tab PO 50 mg BID [facility]STOP[facility] Administration Sodium Chloride 10 ml 11/14/21 22:00 11/16/21 10:07 Sodium Chloride 0.9% 10 Ml Flush Syringe IV 10 ml BID CHRISTOPHER Administration Sodium Chloride 10 ml 11/14/21 21:49 Sodium Chloride 0.9% 10 Ml Flush Syringe IV PRN PRN LINE FLUSH
[2021-11-16] MEDS: LORazepam 2 MG/ML VIAL IV PRN (17:07)
[2021-11-16] MEDS: IPRATROPIUM/ALBUTEROL SULFATE 3 ML AMPUL.NEB IH SCH (21:04)
[2021-11-16] MEDS: INSULIN GLARGINE 100 UNITS/ML SUB-Q SCH (22:27)
[2021-11-17] MEDS: INSULIN LISPRO 100 UNIT/ML SUB-Q SCH ×4 (00:41→17:43)
[2021-11-17] MEDS: HEPARIN/ 0.45% NACL DRIP 25,000 UNIT/500 ML BAG IV SCH ×2 (02:34→22:00)
[2021-11-17 05:33] LABS: Basophils # (Auto) 0.1 K/mm3 (0.0-0.1); Basophils % (Auto) 0.7 % (0.0-1.8); Eosinophils # (Auto) 0.1 K/mm3 (0.0-0.4); Eosinophils % (Auto) 1.6 % (0.0-4.3); Hematocrit 26.3 % (30.3-42.9); Hemoglobin 8.1 gm/dl (10.1-14.3); Lymphocytes # (Auto) 0.5 K/mm3 (1.2-5.4); Lymphocytes % (Auto) 7.2 % (13.4-35.0); Mean Corpuscular HGB Conc 31 % (30-34); Mean Corpuscular Volume 81 fl (79-97); Monocytes # (Auto) 0.4 K/mm3 (0.0-0.8); Monocytes % (Auto) 5.8 % (0.0-7.3); Platelet Count 343 K/mm3 (140-440); Red Blood Count 3.25 M/mm3 (3.65-5.03)
[2021-11-17 05:34] LABS: Red Cell Distribution Width 20.2 % (13.2-15.2)
[2021-11-17] MEDS: FUROSEMIDE 40 MG/4 ML INJ IV SCH ×2 (05:47→17:43)
[2021-11-17 06:15] LABS: Blood Urea Nitrogen 16 mg/dL (7-17); Calcium 8.5 mg/dL (8.4-10.2); Hemolysis Index 1
[2021-11-17 06:20] LABS: ABG Base Excess 1.9 mmol/L (-2.0-3.0); ABG HCO3 26.6 mmol/L (20.0-26.0); ABG PCO2 41.6 mm Hg; ABG PH 7.423 pH Units (7.350-7.450); ABG PO2 83.7 mm Hg (80.0-90.0)
[2021-11-17 06:24] LABS: BUN/Creatinine Ratio 23
[2021-11-17 06:39] LABS: ABG Methemoglobin TNR % (0.0-1.5); ABG Oxygen Saturation TNR % (95.0-99.0)
[2021-11-17] MEDS: IPRATROPIUM/ALBUTEROL SULFATE 3 ML AMPUL.NEB IH SCH ×3 (07:28→20:51)
--- NOTE | 2021-11-17 08:02 | XRay Report ---
CHEST 1 VIEW 11/17/2021 7:28 AM INDICATION / CLINICAL INFORMATION: pulmonary edema. COMPARISON: Radiographs 11/14/2021 FINDINGS: SUPPORT DEVICES: None. HEART / MEDIASTINUM: Similar changes of median sternotomy. LUNGS / PLEURA: Worsening interstitial opacities. No pneumothorax. ADDITIONAL FINDINGS: No significant additional findings. IMPRESSION: 1. Worsening interstitial opacities throughout the bilateral lungs. Signer Name: Slick Xiong MD Signed: 11/17/2021 7:58 AM Workstation Name: [id number]
--- NOTE | 2021-11-17 09:24 | Progress Note ---
Assessment and Plan Assessment and plan: Patient is a 71-year-old female recently admitted on 11/08 and discharged on 11/12 for acute hypoxemic respiratory failure, acute PE, lower extremity DVT. She is currently on Eliquis. Returns today with complaint of recurrent shortness of breath. She is tachycardic and hypotensive. EMS reports sats 50% on room air and placed her on CPAP. Hospital Course: 11/15/2021 Patient decompensated this a.m. 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 Still requiring BIPAP. RT will attempt HiFlo today. BIPAP qhs and prn. ABG last night : 7.4/44/227/27 on 75%. Will continue diuresis with lasix IV bid. Continue heparin gtt for tx of small PE's identified last admit. Bridge to coumadin. Will follow pulmonary recommendations. ABG/CXR ordered for tomorrow AM. 11/17: Worsening infiltrates on CXR. Ordered CT Chest. Continue heparin gtt ab.4/41/83/26 on BIPAP Fio2 40%. Continue HiFlo during the day and BIPAP qhs. Continue Diuresis with Lasix, patient still remains net positive. Extensive multifocal pneumonia wit hmediastinal and hilar LN. Moderate BL pleural efusions noted. Significant left sided effusion, may need thoracentesis if patient does not respond to diuresis. D/w Dr. Sandra bardales Assessment and plan #Acute Respiratory failure with hypoxia #Chronic Obstructive Pulmonary Disease Severe hypoxemia suspect large component of pulmonary edema. Chest xray 11/14/21 reported Persistent basilar effusions. Mild worsening edema and basilar opacity. No pneumothorax. Noted old pulmonary embolism on CTA chest last admission CT chest ordered: demonstrates:Extensive multifocal pneumonia wit hmediastinal and hilar LN. Moderate BL pleural efusions noted and interlobular septal thickening consistent with CHF/pulmonary edema. Needs IV heparin Eliquis not adequate patient decompensated AM of 11/15. Patient initiated on BiPAP...will work to de-escalate to Lasix 40 mg IV bid AM CXR and ABG ordered. Nebulizer therapy with albuterol prn Pulmonary consulted # Subacute pulmonary embolism No RV strain On heparin drip Pulmonary embolism x 2 diagnosed last admission, nonocclusive small Possible failure on DOAC, patient initiated on Coumadin. INR goal 2-3. #Anemia - hgb: 6.9, improved Hgb 7.7 - transfused 1 unit prbc on 11/15 # PAD (peripheral artery disease) Patient stents and left total knee amputation Vascular surgery consult if necessary #Hypertension Continue antihypertensives and adjust medications as necessary # T2DM (type 2 diabetes mellitus) Coverage for now Check hemoglobin A1c # GERD (gastroesophageal reflux disease) On PPIs # DVT prophylaxis On heparin drip and GI prophylaxis # Advance care planning Disease education conducted, care plan discussed, diagnosis and prognosis discussed. Patient is in the patient is full code. Patient acknowledges understanding of the care plan. +30 minutes. The high probability of a clinically significant, sudden or life threatening deterioration of the [multi] system(s) required my full and direct attention, intervention and personal management. The aggregate critical care time was [60] minutes. This time is in addition to time spent performing reported procedures but includes the following: [x] Data Review and interpretation [x] Patient assessment and monitoring of vital signs [x] Documentation [x] Medication orders and management History Interval history: Appears fatigued, lethargic. Has not had adequate nutrition in 48 hrs due to co ntinuous bipap. RN to feed patient meals. Currently on Hi [place] tolerating well. Hospitalist Physical - Physical exam Narrative exam: General appearance: Present: severe distress, well-nourished - EENT Eyes: PERRL, EOM intact ENT: hearing intact, clear oral mucosa Ears: bilateral: normal - Neck Neck: supple, normal ROM - Respiratory Respiratory effort: normal Respiratory: bilateral: diminished, rhonchi, wheezing, negative: other - Breasts Breasts: normal - Cardiovascular Rhythm: regular Heart Sounds: Present: S1 & S2. Absent: gallop, rub Extremities: pulses intact, No edema, normal color, Full ROM, abnormal (Left above-knee amputation) Extremity abnormal: other (Left above-knee amputation) - Gastrointestinal General gastrointestinal: Present: soft, non-tender, non-distended, normal bowel sounds - Genitourinary Female genitourinary: normal - Integumentary Integumentary: clear, warm, dry - Musculoskeletal Musculoskeletal: 1, strength equal bilaterally - Neurologic Neurologic: moves all extremities - Psychiatric Psychiatric: memory intact, appropriate mood/affect, intact judgment & insight - Allied health notes Allied health notes reviewed: nursing, case management - Constitutional Vitals: Temp Pulse Resp BP Pulse Ox 98.2 F 91 H 16 176/74 99 11/17/21 08:00 11/17/21 08:00 11/17/21 08:00 11/17/21 08:00 11/17/21 08:00 General appearance: Present: severe distress, well-nourished HEART Score - HEART Score Troponin: Troponin T 0.261 ng/mL (0.00-0.029) H* D 11/14/21 16:40 Results - Labs CBC & Chem 7: 11/17/21 05:09 11/17/21 05:09 Labs: Laboratory Last Values WBC 7.2 K/mm3 (4.5-11.0) 11/17/21 05:09 RBC 3.25 M/mm3 (3.65-5.03) L 11/17/21 05:09 Hgb 8.1 gm/dl (10.1-14.3) L 11/17/21 05:09 Hct 26.3 % (30.3-42.9) L 11/17/21 05:09 MCV 81 fl (79-97) 11/17/21 05:09 MCH 25 pg (28-32) L 11/17/21 05:09 MCHC 31 % (30-34) 11/17/21 05:09 RDW 20.2 % (13.2-15.2) H 11/17/21 05:09 Plt Count 343 K/mm3 (140-440) 11/17/21 05:09 Lymph % (Auto) 7.2 % (13.4-35.0) L 11/17/21 05:09 [place] % (Auto) 5.8 % (0.0-7.3) 11/17/21 05:09 Eos % (Auto) 1.6 % (0.0-4.3) 11/17/21 05:09 Baso % (Auto) 0.7 % (0.0-1.8) 11/17/21 05:09 Lymph # (Auto) 0.5 K/mm3 (1.2-5.4) L 11/17/21 05:09 [place] # (Auto) 0.4 K/mm3 (0.0-0.8) 11/17/21 05:09 Eos # (Auto) 0.1 K/mm3 (0.0-0.4) 11/17/21 05:09 Baso # (Auto) 0.1 K/mm3 (0.0-0.1) 11/17/21 05:09 Add Manual Diff Complete 11/14/21 16:40 Total Counted 100 11/14/21 16:40 Seg Neutrophils % 84.7 % (40.0-70.0) H 11/17/21 05:09 Seg Neuts % (Manual) 94.0 % (40.0-70.0) H 11/14/21 16:40 Band Neutrophils % 0 % 11/14/21 16:40 Lymphocytes % (Manual) 3.0 % (13.4-35.0) L 11/14/21 16:40 Reactive Lymphs % (Man) 0 % 11/14/21 16:40 Monocytes % (Manual) 3.0 % (0.0-7.3) 11/14/21 16:40 Eosinophils % (Manual) 0 % (0.0-4.3) 11/14/21 16:40 Basophils % (Manual) 0 % (0.0-1.8) 11/14/21 16:40 Metamyelocytes % 0 % 11/14/21 16:40 Myelocytes % 0 % 11/14/21 16:40 Promyelocytes % 0 % 11/14/21 16:40 Blast Cells % 0 % 11/14/21 16:40 Nucleated RBC % Not Reportable 11/14/21 16:40 Seg Neutrophils # 6.1 K/mm3 (1.8-7.7) 11/17/21 05:09 Seg Neutrophils # Man 8.4 K/mm3 (1.8-7.7) H 11/14/21 16:40 Band Neutrophils # 0.0 K/mm3 11/14/21 16:40 Lymphocytes # (Manual) 0.3 K/mm3 (1.2-5.4) L 11/14/21 16:40 Abs React Lymphs (Man) 0.0 K/mm3 11/14/21 16:40 Monocytes # (Manual) 0.3 K/mm3 (0.0-0.8) 11/14/21 16:40 Eosinophils # (Manual) 0.0 K/mm3 (0.0-0.4) 11/14/21 16:40 Basophils # (Manual) 0.0 K/mm3 (0.0-0.1) 11/14/21 16:40 Metamyelocytes # 0.0 K/mm3 11/14/21 16:40 Myelocytes # 0.0 K/mm3 11/14/21 16:40 Promyelocytes # 0.0 K/mm3 11/14/21 16:40 Blast Cells # 0.0 K/mm3 11/14/21 16:40 WBC Morphology Not Reportable 11/14/21 16:40 Hypersegmented Neuts Not Reportable 11/14/21 16:40 Hyposegmented Neuts Not Reportable 11/14/21 16:40 Hypogranular Neuts Not Reportable 11/14/21 16:40 Smudge Cells Not Reportable 11/14/21 16:40 Toxic Granulation Not Reportable 11/14/21 16:40 Toxic Vacuolation Not Reportable 11/14/21 16:40 Dohle Bodies Not Reportable 11/14/21 16:40 Pelger-Huet Anomaly Not Reportable 11/14/21 16:40 Mery Rods Not Reportable 11/14/21 16:40 Platelet Estimate Consistent w auto 11/14/21 16:40 Clumped Platelets Not Reportable 11/14/21 16:40 Plt Clumps, EDTA Not Reportable 11/14/21 16:40 Large Platelets Not Reportable 11/14/21 16:40 Giant Platelets Not Reportable 11/14/21 16:40 Platelet Satelliting Not Reportable 11/14/21 16:40 Plt Morphology Comment Not Reportable 11/14/21 16:40 RBC Morphology Not Reportable 11/14/21 16:40 Dimorphic RBCs Not Reportable 11/14/21 16:40 Polychromasia Not Reportable 11/14/21 16:40 Hypochromasia 2+ 11/14/21 16:40 Poikilocytosis Not Reportable 11/14/21 16:40 Anisocytosis 1+ 11/14/21 16:40 Microcytosis Not Reportable 11/14/21 16:40 Macrocytosis Not Reportable 11/14/21 16:40 Spherocytes Not Reportable 11/14/21 16:40 Pappenheimer Bodies Not Reportable 11/14/21 16:40 Sickle Cells Not Reportable 11/14/21 16:40 Target Cells 1+ 11/14/21 16:40 Tear Drop Cells Not Reportable 11/14/21 16:40 Ovalocytes Not Reportable 11/14/21 16:40 Helmet Cells Not Reportable 11/14/21 16:40 [place]-Townsend Bodies Not Reportable 11/14/21 16:40 Hitchins Rings Not Reportable 11/14/21 16:40 Urich Cells 1+ 11/14/21 16:40 Bite Cells Not Reportable 11/14/21 16:40 Crenated Cell Not Reportable 11/14/21 16:40 Elliptocytes Not Reportable 11/14/21 16:40 Acanthocytes (Spur) Not Reportable 11/14/21 16:40 Rouleaux Not Reportable 11/14/21 16:40 Hemoglobin C Crystals Not Reportable 11/14/21 16:40 Schistocytes Not Reportable 11/14/21 16:40 Malaria parasites Not Reportable 11/14/21 16:40 Jonah Bodies Not Reportable 11/14/21 16:40 Hem Pathologist Commnt No 11/14/21 16:40 PT 13.2 Sec. (12.2-14.9) 11/14/21 22:55 INR 0.91 (0.87-1.13) 11/14/21 22:55 APTT 25.6 Sec. (24.2-36.6) 11/14/21 22:55 Heparin Anti-Xa Level 0.19 U.I./ml (0.3-0.7) L 11/17/21 05:09 ABG pH 7.423 pH Units (7.350-7.450) 11/17/21 05:00 ABG pCO2 41.6 mm Hg 11/17/21 05:00 ABG pO2 83.7 mm Hg (80.0-90.0) 11/17/21 05:00 ABG HCO3 26.6 mmol/L (20.0-26.0) H 11/17/21 05:00 ABG O2 Saturation TNR 11/17/21 05:00 ABG O2 Content 20.4 (0.0-44) 11/17/21 05:00 ABG Base Excess 1.9 mmol/L (-2.0-3.0) 11/17/21 05:00 ABG Hemoglobin TNR 11/17/21 05:00 ABG Carboxyhemoglobin TNR 11/17/21 05:00 ABG Methemoglobin TNR 11/17/21 05:00 Oxyhemoglobin TNR 11/17/21 05:00 FiO2 45 % 11/17/21 05:00 Sodium 134 mmol/L (137-145) L 11/17/21 05:09 Potassium 4.5 mmol/L (3.6-5.0) 11/17/21 05:09 Chloride 96.0 mmol/L (98-107) L 11/17/21 05:09 Carbon Dioxide 25 mmol/L (22-30) 11/17/21 05:09 Anion Gap 18 mmol/L 11/17/21 05:09 BUN 16 mg/dL (7-17) 11/17/21 05:09 Creatinine 0.7 mg/dL (0.6-1.2) D 11/17/21 05:09 Estimated GFR > 60 ml/min 11/17/21 05:09 BUN/Creatinine Ratio 23 % 11/17/21 05:09 Glucose 92 mg/dL (65-100) 11/17/21 05:09 POC Glucose 93 mg/dL (70-105) 11/16/21 23:46 Lactic Acid 1.30 mmol/L (0.7-2.0) 11/15/21 03:33 Calcium 8.5 mg/dL (8.4-10.2) 11/17/21 05:09 Magnesium 1.60 mg/dL (1.7-2.3) L 11/14/21 16:40 Total Bilirubin < 0.20 mg/dL (0.1-1.2) 11/15/21 03:33 AST 35 units/L (5-40) 11/15/21 03:33 ALT 20 units/L (7-56) 11/15/21 03:33 Alkaline Phosphatase 122 units/L (35-129) 11/15/21 03:33 Troponin T 0.261 ng/mL (0.00-0.029) H* D 11/14/21 16:40 Total Protein 4.8 g/dL (6.3-8.2) L 11/15/21 03:33 Albumin 2.5 g/dL (3.9-5) L 11/15/21 03:33 Albumin/Globulin Ratio 1.1 % 11/15/21 03:33 Coronavirus (PCR) Negative (Negative) 11/15/21 Unknown Blood Type A NEGATIVE 11/15/21 09:38 Antibody Screen Negative 11/15/21 09:38 Crossmatch See Detail 11/15/21 09:38 Sanchez/IV: Voiding Method External Female Catheter Active Medications - Current Medications Current Medications: Generic Name Dose Route Start Last Admin Trade Name Freq PRN Reason Stop Dose Admin Albuterol/Ipratropium 1 ampul 11/16/21 20:00 11/17/21 07:28 Ipratropium/Albuterol Sulfate 3 Ml Ampul.Neb IH 1 ampul TIDRT CHRISTOPHER Administration Atorvastatin Calcium 20 mg 11/14/21 22:00 11/16/21 21:43 Atorvastatin 20 Mg Tab PO 20 mg QHS CHRISTOPHER Administration Carvedilol 3.125 mg 11/14/21 22:00 11/16/21 21:43 Carvedilol 3.125 Mg Tab PO 3.125 mg BID CHRISTOPHER Administration Citalopram Hydrobromide 20 mg 11/14/21 22:00 11/16/21 10:07 Citalopram 20 Mg Tab PO 20 mg DAILY CHRISTOPHER Administration Duloxetine HCl 30 mg 11/14/21 22:00 11/16/21 21:43 Duloxetine 30 Mg Cap PO 30 mg BID CHRISTOPHER Administration Ferrous Gluconate 324 mg 11/15/21 08:00 11/16/21 20:48 Ferrous Gluconate 324 Mg Tab PO 324 mg TID CHRISTOPHER Administration Furosemide 40 mg 11/15/21 18:00 11/17/21 05:47 Furosemide 40 Mg/4 Ml Inj IV 40 mg 0600,1800 CHRISTOPHER Administration Gabapentin 900 mg 11/14/21 22:00 11/16/21 21:43 Gabapentin 300 Mg Cap PO 900 mg BID CHRISTOPHER Administration Glipizide 10 mg 11/15/21 08:00 11/16/21 10:06 Glipizide 10 Mg Tab PO 10 mg DAILY@0800 CHRISTOPHER Administration Heparin Sodium (Porcine) 2,500 unit 11/14/21 21:53 Heparin 10,000 Units/10 Ml Vial 40 unit/kg (2500 unit) IV Q6H PRN Anti-Xa Assay < 0.1 units/ml Heparin Sodium/Sodium Chloride 25,000 unit in 500 mls @ 18 mls/hr 11/14/21 22:00 11/17/21 06:30 Heparin/ 0.45% Nacl-25,000 Unit/500 Ml IV 1,300 units/hr TITR CHRISTOPHER 26 mls/hr Titration Protocol 900 UNITS/HR Insulin Glargine 20 units 11/16/21 22:00 11/16/21 22:27 Insulin Glargine 100 Units/Ml SUB-Q Not Given QHS CHRISTOPHER Insulin Human Lispro 0 unit 11/15/21 18:00 11/17/21 06:42 Insulin Lispro 100 Unit/Ml SUB-Q Not Given Q6HR [facility] Protocol Levetiracetam 500 mg 11/14/21 22:00 11/16/21 21:43 Levetiracetam 500 Mg Tab PO 500 mg BID CHRISTOPHER Administration Lorazepam 1 mg 11/14/21 17:50 11/16/21 17:07 Lorazepam 2 Mg/Ml Vial IV 1 mg Q4H PRN Administration Agitation Losartan Potassium 25 mg 11/14/21 22:00 11/16/21 10:05 Losartan 25 Mg Tab PO 25 mg QDAY CHRISTOPHER Administration Metformin HCl 1,000 mg 11/14/21 22:00 11/16/21 17:25 Metformin 500 Mg Tab PO 1,000 mg BIDDIAB CHRISTOPHER Administration Metoclopramide HCl 10 mg 11/14/21 21:49 Metoclopramide 10 Mg/2 Ml Inj IV Q6H PRN Nausea And Vomiting Morphine Sulfate 2 mg 11/14/21 21:49 Morphine 2 Mg/1 Ml Inj IV Q4H PRN Pain, Moderate (4-6) Ondansetron HCl 4 mg 11/14/21 21:49 Ondansetron 4 Mg/2 Ml Inj IV Q3H PRN Nausea And Vomiting Oxycodone/Acetaminophen 1 tab 11/14/21 21:49 Oxycodone /Acetaminophen 5-325mg Tab PO Q6H PRN Pain, Moderate (4-6) Pantoprazole Sodium 40 mg 11/16/21 10:00 11/16/21 10:07 Pantoprazole 40 Mg Tab PO 40 mg DAILY CHRISTOPHER Administration Primidone 50 mg 11/14/21 22:00 11/16/21 21:44 Primidone 50 Mg Tab PO 50 mg BID CHRISTOPHER Administration Sodium Chloride 10 ml 11/14/21 22:00 11/16/21 22:33 Sodium Chloride 0.9% 10 Ml Flush Syringe IV 10 ml BID CHRISTOPHER Administration Sodium Chloride 10 ml 11/14/21 21:49 Sodium Chloride 0.9% 10 Ml Flush Syringe IV PRN PRN LINE FLUSH Nutrition/Malnutrition Assess - Dietary Evaluation Nutrition/Malnutrition Findings: Nutrition Notes Start: 11/16/21 12:59 Freq: Status: Active Protocol: Document 11/16/21 12:59 JUSTIN (Rec: 11/16/21 13:03 JUSTIN [id number]) Nutrition Notes 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 Pt assessed by RD during recent admission (11/09). Burn Absent Trauma Absent GI Symptoms Constipation Skin Integrity/Comment Buttock wound Minimum of two criteria No Reduced Batching Operator Strength Measurably Reduced (severe) #1 Nutrition Diagnosis Predicted suboptimal energy intake Etiology SOB As Evidenced by Signs and Symptoms pt admitted on BiPap support but currently on high-flow nasal cannula Is patient on ventilator? No Is Patient Ambulatory and/or Out of Bed No REE-(Venus-St Jeor-confined to bed) 1382.172 Calculation Used for Recommendations [facility] Additional Notes Pro needs 1-1.2g/k-75g/ day Fluid needs per MD. Nutrition Intervention Change Diet Order: Continue current diet order as tolerated Goal #1 PO tolerance Goal #2 PO intakes to meet at least 75 % energy and pro needs Anticipated Discharge Needs: Heart-healthy, CHO-controlled diet Follow-Up By: 11/19/21 Additional Comments F/U: intakes
[2021-11-17] MEDS: PRIMIDONE 50 MG TAB PO SCH ×2 (09:39→21:15)
[2021-11-17] MEDS: glipiZIDE 10 MG TAB PO SCH (09:39)
[2021-11-17] MEDS: LOSARTAN 25 MG TAB PO SCH (09:39)
[2021-11-17] MEDS: GABAPENTIN 300 MG CAP PO SCH ×2 (09:39→21:15)
[2021-11-17] MEDS: levETIRAcetam 500 MG TAB PO SCH ×2 (09:39→21:14)
[2021-11-17] MEDS: PANTOPRAZOLE 40 MG TAB PO SCH (09:40)
[2021-11-17] MEDS: carvediloL 3.125 MG TAB PO SCH ×2 (09:40→21:14)
[2021-11-17] MEDS: CITALOPRAM 20 MG TAB PO SCH (09:40)
[2021-11-17] MEDS: FERROUS GLUCONATE 324 MG TAB PO SCH ×3 (09:40→21:14)
[2021-11-17] MEDS: DULoxetine 30 MG CAP PO SCH ×2 (09:40→21:14)
[2021-11-17] MEDS: metFORMIN 500 MG TAB PO SCH ×2 (09:40→17:43)
--- NOTE | 2021-11-17 11:14 | Cat Scan Report ---
CT CHEST WITHOUT CONTRAST INDICATION / CLINICAL INFORMATION: pneumonia. TECHNIQUE: Axial CT images were obtained through the chest without contrast. All CT scans at this [facility] ation are performed using CT dose reduction for ALARA by means of automated exposure control. COMPARISON: Radiograph the same date FINDINGS: HEART: No significant abnormality. CORONARY ARTERY CALCIFICATION: Not evaluable -- CABG. THORACIC AORTA: Severe atherosclerotic calcification without acute abnormality. MEDIASTINUM / JANIS: Mediastinal and bilateral hilar lymphadenopathy. PLEURA: Moderate bilateral pleural effusions with associated compressive atelectasis. No pneumothorax . LUNGS: There are extensive consolidations throughout the lungs with an apical predominance. Near comp lete compressive atelectasis of the left lower lobe. Diffuse intralobular septal thickening. ADDITIONAL FINDINGS: Spinal stimulator device is partially seen. UPPER ABDOMEN: There is a healing fracture of the left eighth rib. SKELETAL SYSTEM: No significant abnormality. IMPRESSION: 1. Extensive multifocal pneumonia with mediastinal and hilar lymphadenopathy. 2. Moderate bilateral pleural effusions and interlobular septal thickening may represent a component of pulmonary edema/CHF as well. Signer Name: Slick Xiong MD Signed: 11/17/2021 11:10 AM Workstation Name: [email or web address]
--- NOTE | 2021-11-17 12:16 | Progress Note ---
Assessment and Plan Acute Respiratory failure with hypoxia, on BIPAP Chronic Obstructive Pulmonary Disease, on going tobacco use Severe hypoxemia suspect large component of pulmonary edema. Subacute pulmonary embolism Anemia -transfused 1 unit prbc on 11/15 PAD (peripheral artery disease) -Patient stents and left AKA Hypertension T2DM (type 2 diabetes mellitus) GERD (gastroesophageal reflux disease) CAD s/p CABG -Titrate supplemental oxygen to keep Sp)2 90-92% -An extra dose of Furosemide ordered with Metolazone -Place Sanchez for strict I and Os, in this patient, with acute respiratory distress -Chronic home medications -Aspiration precautions -Monitor closely for bleeding, had EGD 10/29 which was unremarkable. -Supportive transfusions as clinically indicated to keep HgB>7g/dL -Smoking cessation counseling -Mobility, off loading per facility protocol to prevent pressure ulcers -Restrictive fluid strategies as tolerated by her hemodynamics and renal function -Replace electrolytes as clinically indicated -Bronchodilators - continue to avoid benzodiazepines, reduce the possibility of delirium - Maintenance of sleep-wake cycle, avoid delirium CONDITION: CRITICAL PROGNOSIS: GUARDED CODE STATUS: FULL CODE The high probability of a clinically significant, sudden or life threatening deterioration of the respiratory system(s) required my full and direct attention, intervention and personal management. The aggregate critical care time was [35] minutes. This time is in addition to time spent performing reported procedures but includes the following: [x] Data Review and interpretation [x] Patient assessment and monitoring of vital signs [x] Documentation [x] Medication orders and management Subjective Date of service: 11/17/21 Principal diagnosis: Acute respiratory failure with hypoxia, pulmonary embolism Interval history: Summary; Patient is a 71-year-old female recently admitted on 11/08 and discharged on 11/12 for acute hypoxemic respiratory failure, acute PE, lower extremity DVT. She is currently on Eliquis. Returns today with complaint of recurrent shortness of breath. She is tachycardic and hypotensive. EMS reports sats 50% on room air and placed her on CPAP. Seen and examined.In moderate distress, on BIPAP. When placed on High flow she is requiring 40L and 75 % to maintain SpO2 >88% Objective Vital Signs - 12hr 11/17/21 11/17/21 11/17/21 01:00 02:00 02:29 Temperature Pulse Rate 74 74 78 Pulse Rate [ Anterior Bilateral Throughout] Pulse Rate [ From Monitor] Respiratory 12 13 20 Rate Respiratory Rate [Anterior Bilateral Throughout] Blood Pressure 143/62 148/63 111/59 O2 Sat by Pulse 99 99 99 Oximetry 11/17/21 11/17/21 11/17/21 03:00 04:00 05:00 Temperature 98.3 F Pulse Rate 74 84 85 Pulse Rate [ Anterior Bilateral Throughout] Pulse Rate [ 81 From Monitor] Respiratory 14 16 20 Rate Respiratory Rate [Anterior Bilateral Throughout] Blood Pressure 150/61 160/67 164/69 O2 Sat by Pulse 97 99 97 Oximetry 11/17/21 11/17/21 11/17/21 06:00 07:00 07:28 Temperature Pulse Rate 80 83 87 Pulse Rate [ 85 Anterior Bilateral Throughout] Pulse Rate [ From Monitor] Respiratory 16 16 20 Rate Respiratory 18 Rate [Anterior Bilateral Throughout] Blood Pressure 166/70 172/73 172/73 O2 Sat by Pulse 99 96 99 Oximetry 11/17/21 11/17/21 11/17/21 08:00 09:00 09:30 Temperature 98.2 F Pulse Rate 91 H 97 H Pulse Rate [ Anterior Bilateral Throughout] Pulse Rate [ 91 H From Monitor] Respiratory 20 20 Rate Respiratory Rate [Anterior Bilateral Throughout] Blood Pressure 176/74 168/73 O2 Sat by Pulse 98 92 91 Oximetry 11/17/21 11/17/21 10:00 11:08 Temperature Pulse Rate 103 H 95 H Pulse Rate [ Anterior Bilateral Throughout] Pulse Rate [ From Monitor] Respiratory 31 H 22 Rate Respiratory Rate [Anterior Bilateral Throughout] Blood Pressure 182/71 168/73 O2 Sat by Pulse 92 100 Oximetry Constitutional: appears uncomfortable, other (in moderate distress with intermittent confusion) Eyes: non-icteric ENT: oropharynx moist Neck: supple, no JVD Effort: mildly labored Ascultation: Bilateral: diminished breath sounds, rhonchi Cardiovascular: regular rate and rhythm (tachycardia), other (S1S2) Gastrointestinal: normoactive bowel sounds, soft, non-tender Integumentary: normal Extremities: no cyanosis, no edema, other (s/p left AKA) Neurologic: non-focal exam, pupils equal and round Psychiatric: anxious CBC and BMP: 11/18/21 05:02 11/18/21 10:02 ABG, PT/INR, D-dimer: ABG ABG pH 7.423 pH Units (7.350-7.450) 11/17/21 05:00 ABG pCO2 41.6 mm Hg 11/17/21 05:00 ABG pO2 83.7 mm Hg (80.0-90.0) 11/17/21 05:00 ABG O2 Saturation TNR 11/17/21 05:00 PT/INR, D-dimer PT 13.2 Sec. (12.2-14.9) 11/14/21 22:55 INR 0.91 (0.87-1.13) 11/14/21 22:55 Abnormal lab findings: Abnormal Labs 11/14/21 11/14/21 11/14/21 16:40 16:40 16:40 RBC 3.14 L Hgb 7.6 L Hct 25.0 L MCH 24 L RDW 20.2 H Lymph % (Auto) Lymph # (Auto) Seg Neutrophils % Seg Neuts % (Manual) 94.0 H Lymphocytes % (Manual) 3.0 L Seg Neutrophils # Seg Neutrophils # Man 8.4 H Lymphocytes # (Manual) 0.3 L Heparin Anti-Xa Level ABG pH ABG pO2 ABG HCO3 ABG O2 Saturation ABG Base Excess ABG Hemoglobin Oxyhemoglobin Sodium 129 L Chloride 90.8 L Creatinine Glucose 426 H POC Glucose Lactic Acid 4.10 H* Calcium 8.2 L Magnesium 1.60 L AST 50 H Alkaline Phosphatase 152 H Troponin T 0.261 H* D Total Protein 5.5 L Albumin 2.9 L Crossmatch 11/14/21 11/14/21 11/14/21 16:45 17:37 18:28 RBC Hgb Hct MCH RDW Lymph % (Auto) Lymph # (Auto) Seg Neutrophils % Seg Neuts % (Manual) Lymphocytes % (Manual) Seg Neutrophils # Seg Neutrophils # Man Lymphocytes # (Manual) Heparin Anti-Xa Level ABG pH ABG pO2 45.2 L 59.3 L ABG HCO3 ABG O2 Saturation 76.1 L 89.5 L ABG Base Excess ABG Hemoglobin 8.8 L 7.4 L Oxyhemoglobin 72.6 L 85.9 L Sodium Chloride Creatinine Glucose POC Glucose Lactic Acid 2.60 H* Calcium Magnesium AST Alkaline Phosphatase Troponin T Total Protein Albumin Crossmatch 11/14/21 11/14/21 11/15/21 19:50 22:55 03:33 RBC 2.81 L Hgb 7.1 L 6.8 L Hct 23.0 L 22.3 L MCH 24 L RDW 20.0 H Lymph % (Auto) 5.2 L Lymph # (Auto) 0.5 L Seg Neutrophils % 89.1 H Seg Neuts % (Manual) Lymphocytes % (Manual) Seg Neutrophils # 9.0 H Seg Neutrophils # Man Lymphocytes # (Manual) Heparin Anti-Xa Level ABG pH ABG pO2 ABG HCO3 ABG O2 Saturation ABG Base Excess ABG Hemoglobin Oxyhemoglobin Sodium Chloride Creatinine Glucose POC Glucose Lactic Acid 2.40 H* Calcium Magnesium AST Alkaline Phosphatase Troponin T Total Protein Albumin Crossmatch 11/15/21 11/15/21 11/15/21 03:33 05:27 08:02 RBC Hgb Hct MCH RDW Lymph % (Auto) Lymph # (Auto) Seg Neutrophils % Seg Neuts % (Manual) Lymphocytes % (Manual) Seg Neutrophils # Seg Neutrophils # Man Lymphocytes # (Manual) Heparin Anti-Xa Level < 0.10 L ABG pH ABG pO2 ABG HCO3 ABG O2 Saturation ABG Base Excess ABG Hemoglobin Oxyhemoglobin Sodium 132 L Chloride 97.8 L Creatinine 0.4 L Glucose 237 H POC Glucose 306 H Lactic Acid Calcium 7.9 L Magnesium AST Alkaline Phosphatase Troponin T Total Protein 4.8 L Albumin 2.5 L Crossmatch 11/15/21 11/15/21 11/15/21 08:16 08:23 09:38 RBC Hgb Hct MCH RDW Lymph % (Auto) Lymph # (Auto) Seg Neutrophils % Seg Neuts % (Manual) Lymphocytes % (Manual) Seg Neutrophils # Seg Neutrophils # Man Lymphocytes # (Manual) Heparin Anti-Xa Level ABG pH 7.167 L* ABG pO2 57.2 L ABG HCO3 ABG O2 Saturation 76.0 L ABG Base Excess -7.1 L ABG Hemoglobin 6.8 L Oxyhemoglobin 74.2 L Sodium Chloride Creatinine Glucose POC Glucose 347 H Lactic Acid Calcium Magnesium AST Alkaline Phosphatase Troponin T Total Protein Albumin Crossmatch See Detail 11/15/21 11/15/21 11/15/21 11:51 13:54 16:40 RBC Hgb Hct MCH RDW Lymph % (Auto) Lymph # (Auto) Seg Neutrophils % Seg Neuts % (Manual) Lymphocytes % (Manual) Seg Neutrophils # Seg Neutrophils # Man Lymphocytes # (Manual) Heparin Anti-Xa Level 0.26 L ABG pH ABG pO2 227.2 H ABG HCO3 27.1 H ABG O2 Saturation 99.3 H ABG Base Excess ABG Hemoglobin 5.4 L Oxyhemoglobin Sodium Chloride Creatinine Glucose POC Glucose 325 H Lactic Acid Calcium Magnesium AST Alkaline Phosphatase Troponin T Total Protein Albumin Crossmatch 11/15/21 11/15/21 11/16/21 17:52 20:48 00:05 RBC Hgb Hct MCH RDW Lymph % (Auto) Lymph # (Auto) Seg Neutrophils % Seg Neuts % (Manual) Lymphocytes % (Manual) Seg Neutrophils # Seg Neutrophils # Man Lymphocytes # (Manual) Heparin Anti-Xa Level 0.12 L ABG pH ABG pO2 ABG HCO3 ABG O2 Saturation ABG Base Excess ABG Hemoglobin Oxyhemoglobin Sodium Chloride Creatinine Glucose POC Glucose 216 H 119 H Lactic Acid Calcium Magnesium AST Alkaline Phosphatase Troponin T Total Protein Albumin Crossmatch 11/16/21 11/16/21 11/16/21 04:30 04:30 05:57 RBC Hgb 7.7 L Hct 24.7 L MCH RDW Lymph % (Auto) Lymph # (Auto) Seg Neutrophils % Seg Neuts % (Manual) Lymphocytes % (Manual) Seg Neutrophils # Seg Neutrophils # Man Lymphocytes # (Manual) Heparin Anti-Xa Level < 0.10 L ABG pH ABG pO2 ABG HCO3 ABG O2 Saturation ABG Base Excess ABG Hemoglobin Oxyhemoglobin Sodium Chloride Creatinine Glucose POC Glucose 135 H Lactic Acid Calcium Magnesium AST Alkaline Phosphatase Troponin T Total Protein Albumin Crossmatch 11/16/21 11/16/21 11/16/21 12:17 12:36 19:36 RBC Hgb Hct MCH RDW Lymph % (Auto) Lymph # (Auto) Seg Neutrophils % Seg Neuts % (Manual) Lymphocytes % (Manual) Seg Neutrophils # Seg Neutrophils # Man Lymphocytes # (Manual) Heparin Anti-Xa Level 0.21 L 0.23 L ABG pH ABG pO2 ABG HCO3 ABG O2 Saturation ABG Base Excess ABG Hemoglobin Oxyhemoglobin Sodium Chloride Creatinine Glucose POC Glucose 144 H Lactic Acid Calcium Magnesium AST Alkaline Phosphatase Troponin T Total Protein Albumin Crossmatch 11/17/21 11/17/21 11/17/21 05:00 05:09 05:09 RBC 3.25 L Hgb 8.1 L Hct 26.3 L MCH 25 L RDW 20.2 H Lymph % (Auto) 7.2 L Lymph # (Auto) 0.5 L Seg Neutrophils % 84.7 H Seg Neuts % (Manual) Lymphocytes % (Manual) Seg Neutrophils # Seg Neutrophils # Man Lymphocytes # (Manual) Heparin Anti-Xa Level ABG pH ABG pO2 ABG HCO3 26.6 H ABG O2 Saturation ABG Base Excess ABG Hemoglobin Oxyhemoglobin Sodium 134 L Chloride 96.0 L Creatinine Glucose POC Glucose Lactic Acid Calcium Magnesium AST Alkaline Phosphatase Troponin T Total Protein Albumin Crossmatch 11/17/21 05:09 RBC Hgb Hct MCH RDW Lymph % (Auto) Lymph # (Auto) Seg Neutrophils % Seg Neuts % (Manual) Lymphocytes % (Manual) Seg Neutrophils # Seg Neutrophils # Man Lymphocytes # (Manual) Heparin Anti-Xa Level 0.19 L ABG pH ABG pO2 ABG HCO3 ABG O2 Saturation ABG Base Excess ABG Hemoglobin Oxyhemoglobin Sodium Chloride Creatinine Glucose POC Glucose Lactic Acid Calcium Magnesium AST Alkaline Phosphatase Troponin T Total Protein Albumin Crossmatch CT scan - chest: image reviewed (Bilateral effusions, extsnvie alveolar edema) Additional Studies: Chest xray 11/14/21 Persistent basilar effusions. Mild worsening edema and basilar opacity. No pneumothorax. Noted old pulmonary embolism on CTA chest last admission CT chest: demonstrates:Extensive multifocal pneumonia with mediastinal and hilar LN. Moderate BL pleural efusions noted and interlobular septal thickening consistent with CHF/pulmonary edema. Echo 10/05/2021-EF 35 to 40%. Regional wall motion abnormalities. Right ventricle is normal in size with normal ventricle ventricular systolic function. Severe mitral regurgitation. Mild tricuspid regurgitation Cardiac cath 10/15/2021- 2-vessel CAD with diffusely diseased LAD and left circumflex Widely patent REGALADO to mid LAD and SVG toOMbypass graftsModerately reduced LV systolic function with ejection fraction 30 to 35% and associated moderate, hypokinesis Mildly elevated LVEDP Normal systemic arterial pressures. Recommend aggressive medical therapy EGD 10/29 Normal second portion of the duodenum * Superficial duodenal ulcerations of the duodenal bulb, no active bleeding no high risk stigmata * Moderate gastritis with nodularity throughout the stomach. Biopsies taken to rule out H. Pylori infection. A total of 5 biopsies were taken, 2 from the antrum, 1 from the incisura, 2 from the body. * Z-line irregular at 40 * Remainder of exam unremarkable Allied health notes reviewed: RT
[2021-11-17] MEDS ORDERED: FUROSEMIDE 40 MG/4 ML INJ IV ONE (12:38)
[2021-11-17] MEDS: metOLazone 5 MG TAB PO SCH (13:20)
[2021-11-17 18:05] LABS: Blood Urea Nitrogen 15 mg/dL (7-17); Calcium 8.6 mg/dL (8.4-10.2); Hemolysis Index 3
[2021-11-17 18:06] LABS: BUN/Creatinine Ratio 21
--- NOTE | 2021-11-17 20:29 | XRay Report ---
ABDOMEN 1 VIEW 11/17/2021 7:18 PM INDICATION / CLINICAL INFORMATION: post NGT insertion. COMPARISON: None available. FINDINGS: Distal weighted NG tube is within the stomach. Diffuse opacities in bilateral lungs with left effusio n. Signer Name: Jose Liao MD Signed: 11/17/2021 8:25 PM Workstation Name: [id number]
[2021-11-17] MEDS: INSULIN GLARGINE 100 UNITS/ML SUB-Q SCH (22:47)
[2021-11-18] MEDS: INSULIN LISPRO 100 UNIT/ML SUB-Q SCH ×5 (00:29→23:19)
[2021-11-18 05:21] LABS: Hemoglobin 7.8 gm/dl (10.1-14.3)
[2021-11-18] MEDS: FUROSEMIDE 40 MG/4 ML INJ IV SCH ×2 (06:16→18:12)
[2021-11-18] MEDS: IPRATROPIUM/ALBUTEROL SULFATE 3 ML AMPUL.NEB IH SCH ×3 (07:22→20:51)
[2021-11-18] MEDS: FERROUS GLUCONATE 324 MG TAB PO SCH ×3 (09:00→22:02)
--- NOTE | 2021-11-18 09:31 | Progress Note ---
Assessment and Plan Assessment and plan: Patient is a 71-year-old female recently admitted on 11/08 and discharged on 11/12 for acute hypoxemic respiratory failure, acute PE, lower extremity DVT. She is currently on Eliquis. Returns today with complaint of recurrent shortness of breath. She is tachycardic and hypotensive. EMS reports sats 50% on room air and placed her on CPAP. Hospital Course: 11/15/2021 Patient decompensated this a.m. Patient transferred to [facility] Patient on BiPAP Patient on IV heparin Pulmonary/core paster consulted 11/16: improved clinically. Still requiring BIPAP. RT will attempt HiFlo today. BIPAP qhs and prn. ABG last night : 7.4/44/227/27 on 75%. Will continue diuresis with lasix IV bid. Continue heparin gtt for tx of small PE's identified last admit. Bridge to coumadin. Will follow pulmonary recommendations. ABG/CXR ordered for tomorrow AM. 11/17: Worsening infiltrates on CXR. Ordered CT Chest. Continue heparin gtt ab.4/41/83/26 on BIPAP Fio2 40%. Continue HiFlo during the day and BIPAP qhs. Continue Diuresis with Lasix, patient still remains net positive. Extensive multifocal pneumonia wit hmediastinal and hilar LN. Moderate BL pleural efusions noted. Significant left sided effusion, may need thoracentesis if patient does not respond to diuresis. D/w Dr. Sandra bardales 11/18: Febrile overnight, Bcx/Sputum cx ordered. Patchy opacities on CT Chest could be congressional representative of developing pneumonia. Ordered Azithromycin and Rocephin IV. Continue diuresis with lasix and metalazone. CXR and abg ordered for AM. Assessment and plan #Acute Respiratory failure with hypoxia #Chronic Obstructive Pulmonary Disease #Possible Community Acquired Pneumonia Severe hypoxemia suspect large component of pulmonary edema. Chest xray 11/14/21 reported Persistent basilar effusions. Mild worsening edema and basilar opacity. No pneumothorax. Noted old pulmonary embolism on CTA chest last admission CT chest ordered: demonstrates:Extensive multifocal pneumonia with mediastinal and hilar LN. Moderate BL pleural efusions noted and interlobular septal thickening consistent with CHF/pulmonary edema. BCX/Sputum culture Initiated on Azithromycin+Rocephin IV on 11/18 Needs IV heparin Eliquis not adequate patient decompensated AM of 11/15. Patient initiated on BiPAP...will work to de-escalate to Lasix 40 mg IV bid AM CXR and ABG ordered. Nebulizer therapy with albuterol prn Pulmonary consulted # Subacute pulmonary embolism Present from prior admission, doubt failure on AC No RV strain On heparin drip Pulmonary embolism x 2 diagnosed last admission, nonocclusive small Will need to be d/c on DOAC. #Anemia - hgb: 6.9, improved Hgb 7.7 - transfused 1 unit prbc on 11/15 # PAD (peripheral artery disease) Patient stents and left total knee amputation Vascular surgery consult if necessary #Hypertension Continue antihypertensives and adjust medications as necessary # T2DM (type 2 diabetes mellitus) Coverage for now Check hemoglobin A1c # GERD (gastroesophageal reflux disease) On PPIs # DVT prophylaxis On heparin drip and GI prophylaxis # Advance care planning Disease education conducted, care plan discussed, diagnosis and prognosis discussed. Patient is in the patient is full code. Patient acknowledges understanding of the care plan. +30 minutes. The high probability of a clinically significant, sudden or life threatening deterioration of the [multi] system(s) required my full and direct attention, intervention and personal management. The aggregate critical care time was [60] minutes. This time is in addition to time spent performing reported procedures but includes the following: [x] Data Review and interpretation [x] Patient assessment and monitoring of vital signs [x] Documentation [x] Medication orders and management History Interval history: Resting comfortably on beside on encounter. More energy compared to yesterday. Currently on Hi [place] nasal cannula Hospitalist Physical - Physical exam Narrative exam: General appearance: Present: severe distress, well-nourished - EENT Eyes: PERRL, EOM intact ENT: hearing intact, clear oral mucosa Ears: bilateral: normal - Neck Neck: supple, normal ROM - Respiratory Respiratory effort: normal Respiratory: bilateral: diminished, rhonchi, wheezing, negative: other - Breasts Breasts: normal - Cardiovascular Rhythm: regular Heart Sounds: Present: S1 & S2. Absent: gallop, rub Extremities: pulses intact, No edema, normal color, Full ROM, abnormal (Left ab ove-knee amputation) Extremity abnormal: other (Left above-knee amputation) - Gastrointestinal General gastrointestinal: Present: soft, non-tender, non-distended, normal bowel sounds - Genitourinary Female genitourinary: normal - Integumentary Integumentary: clear, warm, dry - Musculoskeletal Musculoskeletal: 1, strength equal bilaterally - Neurologic Neurologic: moves all extremities - Psychiatric Psychiatric: memory intact, appropriate mood/affect, intact judgment & insight - Allied health notes Allied health notes reviewed: nursing, case management - Constitutional Vitals: Temp Pulse Resp BP Pulse Ox 98.1 F 88 14 160/56 97 11/18/21 08:13 11/18/21 09:00 11/18/21 09:00 11/18/21 09:00 11/18/21 09:00 General appearance: Present: severe distress, well-nourished HEART Score - HEART Score Troponin: Troponin T 0.261 ng/mL (0.00-0.029) H* D 11/14/21 16:40 Results - Labs CBC & Chem 7: 11/18/21 05:02 11/18/21 10:02 Labs: Laboratory Last Values WBC 7.2 K/mm3 (4.5-11.0) 11/17/21 05:09 RBC 3.25 M/mm3 (3.65-5.03) L 11/17/21 05:09 Hgb 7.8 gm/dl (10.1-14.3) L 11/18/21 05:02 Hct 25.0 % (30.3-42.9) L 11/18/21 05:02 MCV 81 fl (79-97) 11/17/21 05:09 MCH 25 pg (28-32) L 11/17/21 05:09 MCHC 31 % (30-34) 11/17/21 05:09 RDW 20.2 % (13.2-15.2) H 11/17/21 05:09 Plt Count 334 K/mm3 (140-440) 11/18/21 05:02 Lymph % (Auto) 7.2 % (13.4-35.0) L 11/17/21 05:09 [place] % (Auto) 5.8 % (0.0-7.3) 11/17/21 05:09 Eos % (Auto) 1.6 % (0.0-4.3) 11/17/21 05:09 Baso % (Auto) 0.7 % (0.0-1.8) 11/17/21 05:09 Lymph # (Auto) 0.5 K/mm3 (1.2-5.4) L 11/17/21 05:09 [place] # (Auto) 0.4 K/mm3 (0.0-0.8) 11/17/21 05:09 Eos # (Auto) 0.1 K/mm3 (0.0-0.4) 11/17/21 05:09 Baso # (Auto) 0.1 K/mm3 (0.0-0.1) 11/17/21 05:09 Add Manual Diff Complete 11/14/21 16:40 Total Counted 100 11/14/21 16:40 Seg Neutrophils % 84.7 % (40.0-70.0) H 11/17/21 05:09 Seg Neuts % (Manual) 94.0 % (40.0-70.0) H 11/14/21 16:40 Band Neutrophils % 0 % 11/14/21 16:40 Lymphocytes % (Manual) 3.0 % (13.4-35.0) L 11/14/21 16:40 Reactive Lymphs % (Man) 0 % 11/14/21 16:40 Monocytes % (Manual) 3.0 % (0.0-7.3) 11/14/21 16:40 Eosinophils % (Manual) 0 % (0.0-4.3) 11/14/21 16:40 Basophils % (Manual) 0 % (0.0-1.8) 11/14/21 16:40 Metamyelocytes % 0 % 11/14/21 16:40 Myelocytes % 0 % 11/14/21 16:40 Promyelocytes % 0 % 11/14/21 16:40 Blast Cells % 0 % 11/14/21 16:40 Nucleated RBC % Not Reportable 11/14/21 16:40 Seg Neutrophils # 6.1 K/mm3 (1.8-7.7) 11/17/21 05:09 Seg Neutrophils # Man 8.4 K/mm3 (1.8-7.7) H 11/14/21 16:40 Band Neutrophils # 0.0 K/mm3 11/14/21 16:40 Lymphocytes # (Manual) 0.3 K/mm3 (1.2-5.4) L 11/14/21 16:40 Abs React Lymphs (Man) 0.0 K/mm3 11/14/21 16:40 Monocytes # (Manual) 0.3 K/mm3 (0.0-0.8) 11/14/21 16:40 Eosinophils # (Manual) 0.0 K/mm3 (0.0-0.4) 11/14/21 16:40 Basophils # (Manual) 0.0 K/mm3 (0.0-0.1) 11/14/21 16:40 Metamyelocytes # 0.0 K/mm3 11/14/21 16:40 Myelocytes # 0.0 K/mm3 11/14/21 16:40 Promyelocytes # 0.0 K/mm3 11/14/21 16:40 Blast Cells # 0.0 K/mm3 11/14/21 16:40 WBC Morphology Not Reportable 11/14/21 16:40 Hypersegmented Neuts Not Reportable 11/14/21 16:40 Hyposegmented Neuts Not Reportable 11/14/21 16:40 Hypogranular Neuts Not Reportable 11/14/21 16:40 Smudge Cells Not Reportable 11/14/21 16:40 Toxic Granulation Not Reportable 11/14/21 16:40 Toxic Vacuolation Not Reportable 11/14/21 16:40 Dohle Bodies Not Reportable 11/14/21 16:40 Pelger-Huet Anomaly Not Reportable 11/14/21 16:40 Mery Rods Not Reportable 11/14/21 16:40 Platelet Estimate Consistent w auto 11/14/21 16:40 Clumped Platelets Not Reportable 11/14/21 16:40 Plt Clumps, EDTA Not Reportable 11/14/21 16:40 Large Platelets Not Reportable 11/14/21 16:40 Giant Platelets Not Reportable 11/14/21 16:40 Platelet Satelliting Not Reportable 11/14/21 16:40 Plt Morphology Comment Not Reportable 11/14/21 16:40 RBC Morphology Not Reportable 11/14/21 16:40 Dimorphic RBCs Not Reportable 11/14/21 16:40 Polychromasia Not Reportable 11/14/21 16:40 Hypochromasia 2+ 11/14/21 16:40 Poikilocytosis Not Reportable 11/14/21 16:40 Anisocytosis 1+ 11/14/21 16:40 Microcytosis Not Reportable 11/14/21 16:40 Macrocytosis Not Reportable 11/14/21 16:40 Spherocytes Not Reportable 11/14/21 16:40 Pappenheimer Bodies Not Reportable 11/14/21 16:40 Sickle Cells Not Reportable 11/14/21 16:40 Target Cells 1+ 11/14/21 16:40 Tear Drop Cells Not Reportable 11/14/21 16:40 Ovalocytes Not Reportable 11/14/21 16:40 Helmet Cells Not Reportable 11/14/21 16:40 [place] Bodies Not Reportable 11/14/21 16:40 [place] Rings Not Reportable 11/14/21 16:40 Felipe Cells 1+ 11/14/21 16:40 Bite Cells Not Reportable 11/14/21 16:40 Crenated Cell Not Reportable 11/14/21 16:40 Elliptocytes Not Reportable 11/14/21 16:40 Acanthocytes (Spur) Not Reportable 11/14/21 16:40 Rouleaux Not Reportable 11/14/21 16:40 Hemoglobin C Crystals Not Reportable 11/14/21 16:40 Schistocytes Not Reportable 11/14/21 16:40 Malaria parasites Not Reportable 11/14/21 16:40 Jonah Bodies Not Reportable 11/14/21 16:40 Hem Pathologist Commnt No 11/14/21 16:40 PT 13.2 Sec. (12.2-14.9) 11/14/21 22:55 INR 0.91 (0.87-1.13) 11/14/21 22:55 APTT 25.6 Sec. (24.2-36.6) 11/14/21 22:55 Heparin Anti-Xa Level 0.32 U.I./ml (0.3-0.7) 11/18/21 05:02 ABG pH 7.423 pH Units (7.350-7.450) 11/17/21 05:00 ABG pCO2 41.6 mm Hg 11/17/21 05:00 ABG pO2 83.7 mm Hg (80.0-90.0) 11/17/21 05:00 ABG HCO3 26.6 mmol/L (20.0-26.0) H 11/17/21 05:00 ABG O2 Saturation TNR 11/17/21 05:00 ABG O2 Content 20.4 (0.0-44) 11/17/21 05:00 ABG Base Excess 1.9 mmol/L (-2.0-3.0) 11/17/21 05:00 ABG Hemoglobin TNR 11/17/21 05:00 ABG Carboxyhemoglobin TNR 11/17/21 05:00 ABG Methemoglobin TNR 11/17/21 05:00 Oxyhemoglobin TNR 11/17/21 05:00 FiO2 45 % 11/17/21 05:00 Sodium 131 mmol/L (137-145) L 11/17/21 16:00 Potassium 3.9 mmol/L (3.6-5.0) 11/17/21 16:00 Chloride 89.5 mmol/L (98-107) L 11/17/21 16:00 Carbon Dioxide 26 mmol/L (22-30) 11/17/21 16:00 Anion Gap 19 mmol/L 11/17/21 16:00 BUN 15 mg/dL (7-17) 11/17/21 16:00 Creatinine 0.7 mg/dL (0.6-1.2) 11/17/21 16:00 Estimated GFR > 60 ml/min 11/17/21 16:00 BUN/Creatinine Ratio 21 % 11/17/21 16:00 Glucose 114 mg/dL (65-100) H 11/17/21 16:00 POC Glucose 136 mg/dL (70-105) H 11/18/21 06:15 Lactic Acid 1.30 mmol/L (0.7-2.0) 11/15/21 03:33 Calcium 8.6 mg/dL (8.4-10.2) 11/17/21 16:00 Magnesium 1.60 mg/dL (1.7-2.3) L 11/14/21 16:40 Total Bilirubin < 0.20 mg/dL (0.1-1.2) 11/15/21 03:33 AST 35 units/L (5-40) 11/15/21 03:33 ALT 20 units/L (7-56) 11/15/21 03:33 Alkaline Phosphatase 122 units/L (35-129) 11/15/21 03:33 Troponin T 0.261 ng/mL (0.00-0.029) H* D 11/14/21 16:40 Total Protein 4.8 g/dL (6.3-8.2) L 11/15/21 03:33 Albumin 2.5 g/dL (3.9-5) L 11/15/21 03:33 Albumin/Globulin Ratio 1.1 % 11/15/21 03:33 Coronavirus (PCR) Negative (Negative) 11/15/21 Unknown Blood Type A NEGATIVE 11/15/21 09:38 Antibody Screen Negative 11/15/21 09:38 Crossmatch See Detail 11/15/21 09:38 Sanchez/IV: Voiding Method Indwelling Catheter Active Medications - Current Medications Current Medications: Generic Name Dose Route Start Last Admin Trade Name Freq PRN Reason Stop Dose Admin Albuterol/Ipratropium 1 ampul 11/16/21 20:00 11/18/21 07:22 Ipratropium/Albuterol Sulfate 3 Ml Ampul.Neb IH 1 ampul TIDRT CHRISTOPHER Administration Atorvastatin Calcium 20 mg 11/14/21 22:00 11/17/21 21:15 Atorvastatin 20 Mg Tab PO 20 mg QHS CHRISTOPHER Administration Carvedilol 3.125 mg 11/14/21 22:00 11/17/21 21:14 Carvedilol 3.125 Mg Tab PO 3.125 mg BID CHRISTOPHER Administration Citalopram Hydrobromide 20 mg 11/14/21 22:00 11/17/21 09:40 Citalopram 20 Mg Tab PO 20 mg DAILY CHRISTOPHER Administration Duloxetine HCl 30 mg 11/14/21 22:00 11/17/21 21:14 Duloxetine 30 Mg Cap PO 30 mg BID CHRISTOPHER Administration Ferrous Gluconate 324 mg 11/15/21 08:00 11/17/21 21:14 Ferrous Gluconate 324 Mg Tab PO 324 mg TID CHRISTOPHER Administration Furosemide 40 mg 11/15/21 18:00 11/18/21 06:16 Furosemide 40 Mg/4 Ml Inj IV 40 mg 0600,1800 CHRISTOPHER Administration Gabapentin 900 mg 11/14/21 22:00 11/17/21 21:15 Gabapentin 300 Mg Cap PO 900 mg BID CHRISTOPHER Administration Glipizide 10 mg 11/15/21 08:00 11/17/21 09:39 Glipizide 10 Mg Tab PO 10 mg DAILY@0800 CHRISTOPHER Administration Heparin Sodium (Porcine) 2,500 unit 11/14/21 21:53 11/17/21 16:48 Heparin 10,000 Units/10 Ml Vial 40 unit/kg (2500 unit) 2,500 unit IV Administration Q6H PRN Anti-Xa Assay < 0.1 units/ml Heparin Sodium/Sodium Chloride 25,000 unit in 500 mls @ 18 mls/hr 11/14/21 22:00 11/18/21 06:13 Heparin/ 0.45% Nacl-25,000 Unit/500 Ml IV 1,500 units/hr TITR CHRISTOPHER 30 mls/hr Titration Protocol 900 UNITS/HR Insulin Glargine 20 units 11/16/21 22:00 11/17/21 22:47 Insulin Glargine 100 Units/Ml SUB-Q Not Given QHS [facility] Insulin Human Lispro 0 unit 11/15/21 18:00 11/18/21 06:19 Insulin Lispro 100 Unit/Ml SUB-Q Not Given Q6HR [facility] Protocol Labetalol HCl 10 mg 11/17/21 18:46 11/17/21 20:23 Labetalol 20 Mg/4 Ml Inj IV 10 mg Q4H PRN Administration Blood Pressure Levetiracetam 500 mg 11/14/21 22:00 11/17/21 21:14 Levetiracetam 500 Mg Tab PO 500 mg BID CHRISTOPHER Administration Lorazepam 1 mg 11/14/21 17:50 11/16/21 17:07 Lorazepam 2 Mg/Ml Vial IV 1 mg Q4H PRN Administration Agitation Losartan Potassium 25 mg 11/14/21 22:00 11/17/21 09:39 Losartan 25 Mg Tab PO 25 mg QDAY CHRISTOPHER Administration Metformin HCl 1,000 mg 11/14/21 22:00 11/17/21 17:43 Metformin 500 Mg Tab PO 1,000 mg BIDDIAB CHRISTOPHER Administration Metoclopramide HCl 10 mg 11/14/21 21:49 Metoclopramide 10 Mg/2 Ml Inj IV Q6H PRN Nausea And Vomiting Metolazone 5 mg 11/17/21 13:00 11/17/21 13:20 Metolazone 5 Mg Tab PO 5 mg QDAY [facility] Administration Morphine Sulfate 2 mg 11/14/21 21:49 Morphine 2 Mg/1 Ml Inj IV Q4H PRN Pain, Moderate (4-6) Ondansetron HCl 4 mg 11/14/21 21:49 Ondansetron 4 Mg/2 Ml Inj IV Q3H PRN Nausea And Vomiting Oxycodone/Acetaminophen 1 tab 11/14/21 21:49 Oxycodone /Acetaminophen 5-325mg Tab PO Q6H PRN Pain, Moderate (4-6) Pantoprazole Sodium 40 mg 11/16/21 10:00 11/17/21 09:40 Pantoprazole 40 Mg Tab PO 40 mg DAILY CHRISTOPHER Administration Primidone 50 mg 11/14/21 22:00 11/17/21 21:15 Primidone 50 Mg Tab PO 50 mg BID CHRISTOPHER Administration Sodium Chloride 10 ml 11/14/21 22:00 11/17/21 22:46 Sodium Chloride 0.9% 10 Ml Flush Syringe IV 10 ml BID CHRISTOPHER Administration Sodium Chloride 10 ml 11/14/21 21:49 Sodium Chloride 0.9% 10 Ml Flush Syringe IV PRN PRN LINE FLUSH Nutrition/Malnutrition Assess - Dietary Evaluation Nutrition/Malnutrition Findings: Nutrition Notes Start: 11/16/21 12:59 Freq: Status: Active Protocol: Document 11/16/21 12:59 [facility] (Rec: 11/16/21 13:03 [facility] [id number]) Nutrition Notes 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 Pt assessed by RD during recent admission (11/09). Burn Absent Trauma Absent GI Symptoms Constipation Skin Integrity/Comment Buttock wound Minimum of two criteria No Reduced Shactor Helper Strength Measurably Reduced (severe) #1 Nutrition Diagnosis Predicted suboptimal energy intake Etiology SOB As Evidenced by Signs and Symptoms pt admitted on BiPap support but currently on high-flow nasal cannula Is patient on ventilator? No Is Patient Ambulatory and/or Out of Bed No REE-([facility]-confined to bed) 1382.172 Calculation [facility] Additional Notes Pro needs 1-1.2g/k-75g/ day Fluid needs per MD. Nutrition Intervention Change Diet Order: Continue current diet order as tolerated Goal #1 PO tolerance Goal #2 PO intakes to meet at least 75 % energy and pro needs Anticipated Discharge Needs: Heart-healthy, CHO-controlled diet Follow-Up By: 11/19/21 Additional Comments F/U: intakes
[2021-11-18] MEDS: levETIRAcetam 500 MG TAB PO SCH ×2 (09:42→22:02)
[2021-11-18] MEDS: DULoxetine 30 MG CAP PO SCH ×2 (09:42→22:02)
[2021-11-18] MEDS: CITALOPRAM 20 MG TAB PO SCH (09:43)
[2021-11-18] MEDS: PRIMIDONE 50 MG TAB PO SCH ×2 (09:43→22:02)
[2021-11-18] MEDS: carvediloL 3.125 MG TAB PO SCH ×2 (09:43→22:02)
[2021-11-18] MEDS: PANTOPRAZOLE 40 MG TAB PO SCH (09:43)
[2021-11-18] MEDS: metOLazone 5 MG TAB PO SCH (09:44)
[2021-11-18] MEDS: LOSARTAN 25 MG TAB PO SCH (09:44)
[2021-11-18] MEDS: cefTRIAXone/NS 1 GM/50 ML 1 GM/50 ML BAG IV SCH (09:50)
[2021-11-18] MEDS ORDERED: AZITHROMYCIN/NS 500 MG/250 ML 500 MG/250 ML BAG IV SCH (10:00)
[2021-11-18 10:57] LABS: Blood Urea Nitrogen 17 mg/dL (7-17); Calcium 8.5 mg/dL (8.4-10.2); Hemolysis Index 1
[2021-11-18 11:02] LABS: BUN/Creatinine Ratio 28
--- NOTE | 2021-11-18 12:54 | Progress Note ---
Assessment and Plan Acute Respiratory failure with hypoxia, on BIPAP Chronic Obstructive Pulmonary Disease, on going tobacco use Severe hypoxemia suspect large component of pulmonary edema. Subacute pulmonary embolism Anemia -transfused 1 unit prbc on 11/15 PAD (peripheral artery disease) -Patient stents and left AKA Hypertension T2DM (type 2 diabetes mellitus) GERD (gastroesophageal reflux disease) CAD s/p CABG -Titrate supplemental oxygen to keep Sp)2 90-92% -Place Murphy for strict I and Os, in this patient, with acute respiratory distre ss- can discontinue Murphy catheter in the morning -Replete potassium, keep K4 and Mag at 2 -Stop heparin adn resume Apixaban, therapeutic dosing -Chronic home medications -Continue to monitor closely for bleeding, had EGD 10/29 which was unremarkable. -Supportive transfusions as clinically indicated to keep HgB>7g/dL -Smoking cessation counseling -Mobility, off loading per facility protocol to prevent pressure ulcers -Restrictive fluid strategies as tolerated by her hemodynamics and renal functi on -Replace electrolytes as clinically indicated -Bronchodilators - continue to avoid benzodiazepines, reduce the possibility of delirium - Maintenance of sleep-wake cycle, avoid delirium PT/OT to evaluate and treat CONDITION: FAIR PROGNOSIS: FAIR CODE STATUS: FULL CODE Subjective Date of service: 11/18/21 Principal diagnosis: Acute respiratory failure with hypoxia, pulmonary embolism Interval history: Summary; Patient is a 71-year-old female recently admitted on 11/08 and discharged on 11/12 for acute hypoxemic respiratory failure, acute PE, lower extremity DVT. She is currently on Eliquis. Returns today with complaint of recurrent shortness of breath. She is tachycardic and hypotensive. EMS reports sats 50% on room air and placed her on CPAP. Seen and examined.Clinically improving, Net negative 3L, has hypokalemia on BMP 30L/50% on HFOT States she is much better, denies any chest pain or shortness of breath. No adverse overnight events. Discussed with nursing and respiratory care staff. Objective Vital Signs - 12hr 11/18/21 11/18/21 11/18/21 01:00 02:00 02:59 Temperature Pulse Rate 81 76 77 Pulse Rate [ Anterior Bilateral Throughout] Respiratory 12 12 12 Rate Respiratory Rate [Anterior Bilateral Throughout] Blood Pressure 147/56 134/50 134/56 O2 Sat by Pulse 96 96 99 Oximetry 11/18/21 11/18/2122 03:00 03:56 04:00 Temperature 99.8 F H Pulse Rate 77 72 Pulse Rate [ Anterior Bilateral Throughout] Respiratory 11 L 12 Rate Respiratory Rate [Anterior Bilateral Throughout] Blood Pressure 133/50 142/51 O2 Sat by Pulse 97 97 Oximetry 11/18/21 11/18/21 11/18/21 05:00 06:00 07:00 Temperature Pulse Rate 72 70 72 Pulse Rate [ Anterior Bilateral Throughout] Respiratory 13 11 L 10 L Rate Respiratory Rate [Anterior Bilateral Throughout] Blood Pressure 144/54 159/57 159/57 O2 Sat by Pulse 97 98 99 Oximetry 11/18/21 11/18/21 11/18/21 07:22 08:00 08:13 Temperature 98.1 F Pulse Rate 85 92 H Pulse Rate [ 91 H Anterior Bilateral Throughout] Respiratory 16 24 Rate Respiratory 18 Rate [Anterior Bilateral Throughout] Blood Pressure 113/44 166/60 O2 Sat by Pulse 100 99 Oximetry 11/18/21 11/18/21 11/18/21 09:00 09:43 09:44 Temperature Pulse Rate 88 89 87 Pulse Rate [ Anterior Bilateral Throughout] Respiratory 14 Rate Respiratory Rate [Anterior Bilateral Throughout] Blood Pressure 160/56 160/56 160/56 O2 Sat by Pulse 97 Oximetry 11/18/21 11/18/21 11/18/21 10:00 11:00 12:00 Temperature Pulse Rate 82 85 83 Pulse Rate [ Anterior Bilateral Throughout] Respiratory 15 16 13 Rate Respiratory Rate [Anterior Bilateral Throughout] Blood Pressure 151/49 157/59 160/58 O2 Sat by Pulse 97 96 95 Oximetry 11/18/21 12:02 Temperature 97.4 F L Pulse Rate Pulse Rate [ Anterior Bilateral Throughout] Respiratory Rate Respiratory Rate [Anterior Bilateral Throughout] Blood Pressure O2 Sat by Pulse Oximetry Constitutional: no acute distress, alert Eyes: non-icteric ENT: oropharynx moist Neck: supple, no JVD Effort: mildly labored Ascultation: Bilateral: diminished breath sounds Cardiovascular: regular rate and rhythm, other (S1,S2) Gastrointestinal: normoactive bowel sounds, soft, non-tender Integumentary: normal Extremities: no cyanosis, no edema, other (Left AKA, murphy ) Neurologic: normal mental status, non-focal exam, pupils equal and round, motor strength normal and Psychiatric: mood appropriate, affect normal, other (Patient sleeping but arousable.) CBC and BMP: 11/18/21 05:02 11/18/21 10:02 ABG, PT/INR, D-dimer: ABG ABG pH 7.423 pH Units (7.350-7.450) 11/17/21 05:00 ABG pCO2 41.6 mm Hg 11/17/21 05:00 ABG pO2 83.7 mm Hg (80.0-90.0) 11/17/21 05:00 ABG O2 Saturation TNR 11/17/21 05:00 PT/INR, D-dimer PT 13.2 Sec. (12.2-14.9) 11/14/21 22:55 INR 0.91 (0.87-1.13) 11/14/21 22:55 Abnormal lab findings: Abnormal Labs 11/14/21 11/14/21 11/14/21 16:40 16:40 16:40 RBC 3.14 L Hgb 7.6 L Hct 25.0 L MCH 24 L RDW 20.2 H Lymph % (Auto) Lymph # (Auto) Seg Neutrophils % Seg Neuts % (Manual) 94.0 H Lymphocytes % (Manual) 3.0 L Seg Neutrophils # Seg Neutrophils # Man 8.4 H Lymphocytes # (Manual) 0.3 L Heparin Anti-Xa Level ABG pH ABG pO2 ABG HCO3 ABG O2 Saturation ABG Base Excess ABG Hemoglobin Oxyhemoglobin Sodium 129 L Potassium Chloride 90.8 L Carbon Dioxide Creatinine Glucose 426 H POC Glucose Lactic Acid 4.10 H* Calcium 8.2 L Magnesium 1.60 L AST 50 H Alkaline Phosphatase 152 H Troponin T 0.261 H* D Total Protein 5.5 L Albumin 2.9 L Crossmatch 11/14/21 11/14/21 11/14/21 16:45 17:37 18:28 RBC Hgb Hct MCH RDW Lymph % (Auto) Lymph # (Auto) Seg Neutrophils % Seg Neuts % (Manual) Lymphocytes % (Manual) Seg Neutrophils # Seg Neutrophils # Man Lymphocytes # (Manual) Heparin Anti-Xa Level ABG pH ABG pO2 45.2 L 59.3 L ABG HCO3 ABG O2 Saturation 76.1 L 89.5 L ABG Base Excess ABG Hemoglobin 8.8 L 7.4 L Oxyhemoglobin 72.6 L 85.9 L Sodium Potassium Chloride Carbon Dioxide Creatinine Glucose POC Glucose Lactic Acid 2.60 H* Calcium Magnesium AST Alkaline Phosphatase Troponin T Total Protein Albumin Crossmatch 11/14/21 11/14/21 11/15/21 19:50 22:55 03:33 RBC 2.81 L Hgb 7.1 L 6.8 L Hct 23.0 L 22.3 L MCH 24 L RDW 20.0 H Lymph % (Auto) 5.2 L Lymph # (Auto) 0.5 L Seg Neutrophils % 89.1 H Seg Neuts % (Manual) Lymphocytes % (Manual) Seg Neutrophils # 9.0 H Seg Neutrophils # Man Lymphocytes # (Manual) Heparin Anti-Xa Level ABG pH ABG pO2 ABG HCO3 ABG O2 Saturation ABG Base Excess ABG Hemoglobin Oxyhemoglobin Sodium Potassium Chloride Carbon Dioxide Creatinine Glucose POC Glucose Lactic Acid 2.40 H* Calcium Magnesium AST Alkaline Phosphatase Troponin T Total Protein Albumin Crossmatch 11/15/21 11/15/21 11/15/21 03:33 05:27 08:02 RBC Hgb Hct MCH RDW Lymph % (Auto) Lymph # (Auto) Seg Neutrophils % Seg Neuts % (Manual) Lymphocytes % (Manual) Seg Neutrophils # Seg Neutrophils # Man Lymphocytes # (Manual) Heparin Anti-Xa Level < 0.10 L ABG pH ABG pO2 ABG HCO3 ABG O2 Saturation ABG Base Excess ABG Hemoglobin Oxyhemoglobin Sodium 132 L Potassium Chloride 97.8 L Carbon Dioxide Creatinine 0.4 L Glucose 237 H POC Glucose 306 H Lactic Acid Calcium 7.9 L Magnesium AST Alkaline Phosphatase Troponin T Total Protein 4.8 L Albumin 2.5 L Crossmatch 11/15/21 11/15/21 11/15/21 08:16 08:23 09:38 RBC Hgb Hct MCH RDW Lymph % (Auto) Lymph # (Auto) Seg Neutrophils % Seg Neuts % (Manual) Lymphocytes % (Manual) Seg Neutrophils # Seg Neutrophils # Man Lymphocytes # (Manual) Heparin Anti-Xa Level ABG pH 7.167 L* ABG pO2 57.2 L ABG HCO3 ABG O2 Saturation 76.0 L ABG Base Excess -7.1 L ABG Hemoglobin 6.8 L Oxyhemoglobin 74.2 L Sodium Potassium Chloride Carbon Dioxide Creatinine Glucose POC Glucose 347 H Lactic Acid Calcium Magnesium AST Alkaline Phosphatase Troponin T Total Protein Albumin Crossmatch See Detail 09/10/2911/15/21 11/15/21 11:51 13:54 16:40 RBC Hgb Hct MCH RDW Lymph % (Auto) Lymph # (Auto) Seg Neutrophils % Seg Neuts % (Manual) Lymphocytes % (Manual) Seg Neutrophils # Seg Neutrophils # Man Lymphocytes # (Manual) Heparin Anti-Xa Level 0.26 L ABG pH ABG pO2 227.2 H ABG HCO3 27.1 H ABG O2 Saturation 99.3 H ABG Base Excess ABG Hemoglobin 5.4 L Oxyhemoglobin Sodium Potassium Chloride Carbon Dioxide Creatinine Glucose POC Glucose 325 H Lactic Acid Calcium Magnesium AST Alkaline Phosphatase Troponin T Total Protein Albumin Crossmatch 11/15/21 11/15/21 11/16/21 17:52 20:48 00:05 RBC Hgb Hct MCH RDW Lymph % (Auto) Lymph # (Auto) Seg Neutrophils % Seg Neuts % (Manual) Lymphocytes % (Manual) Seg Neutrophils # Seg Neutrophils # Man Lymphocytes # (Manual) Heparin Anti-Xa Level 0.12 L ABG pH ABG pO2 ABG HCO3 ABG O2 Saturation ABG Base Excess ABG Hemoglobin Oxyhemoglobin Sodium Potassium Chloride Carbon Dioxide Creatinine Glucose POC Glucose 216 H 119 H Lactic Acid Calcium Magnesium AST Alkaline Phosphatase Troponin T Total Protein Albumin Crossmatch 11/16/21 11/16/21 11/16/21 04:30 04:30 05:57 RBC Hgb 7.7 L Hct 24.7 L MCH RDW Lymph % (Auto) Lymph # (Auto) Seg Neutrophils % Seg Neuts % (Manual) Lymphocytes % (Manual) Seg Neutrophils # Seg Neutrophils # Man Lymphocytes # (Manual) Heparin Anti-Xa Level < 0.10 L ABG pH ABG pO2 ABG HCO3 ABG O2 Saturation ABG Base Excess ABG Hemoglobin Oxyhemoglobin Sodium Potassium Chloride Carbon Dioxide Creatinine Glucose POC Glucose 135 H Lactic Acid Calcium Magnesium AST Alkaline Phosphatase Troponin T Total Protein Albumin Crossmatch 11/16/21 11/16/21 11/16/21 12:17 12:36 19:36 RBC Hgb Hct MCH RDW Lymph % (Auto) Lymph # (Auto) Seg Neutrophils % Seg Neuts % (Manual) Lymphocytes % (Manual) Seg Neutrophils # Seg Neutrophils # Man Lymphocytes # (Manual) Heparin Anti-Xa Level 0.21 L 0.23 L ABG pH ABG pO2 ABG HCO3 ABG O2 Saturation ABG Base Excess ABG Hemoglobin Oxyhemoglobin Sodium Potassium Chloride Carbon Dioxide Creatinine Glucose POC Glucose 144 H Lactic Acid Calcium Magnesium AST Alkaline Phosphatase Troponin T Total Protein Albumin Crossmatch 11/17/21 11/17/21 11/17/21 05:00 05:09 05:09 RBC 3.25 L Hgb 8.1 L Hct 26.3 L MCH 25 L RDW 20.2 H Lymph % (Auto) 7.2 L Lymph # (Auto) 0.5 L Seg Neutrophils % 84.7 H Seg Neuts % (Manual) Lymphocytes % (Manual) Seg Neutrophils # Seg Neutrophils # Man Lymphocytes # (Manual) Heparin Anti-Xa Level ABG pH ABG pO2 ABG HCO3 26.6 H ABG O2 Saturation ABG Base Excess ABG Hemoglobin Oxyhemoglobin Sodium 134 L Potassium Chloride 96.0 L Carbon Dioxide Creatinine Glucose POC Glucose Lactic Acid Calcium Magnesium AST Alkaline Phosphatase Troponin T Total Protein Albumin Crossmatch 11/17/21 11/17/21 11/17/21 05:09 11:40 13:42 RBC Hgb Hct MCH RDW Lymph % (Auto) Lymph # (Auto) Seg Neutrophils % Seg Neuts % (Manual) Lymphocytes % (Manual) Seg Neutrophils # Seg Neutrophils # Man Lymphocytes # (Manual) Heparin Anti-Xa Level 0.19 L < 0.10 L ABG pH ABG pO2 ABG HCO3 ABG O2 Saturation ABG Base Excess ABG Hemoglobin Oxyhemoglobin Sodium Potassium Chloride Carbon Dioxide Creatinine Glucose POC Glucose 133 H Lactic Acid Calcium Magnesium AST Alkaline Phosphatase Troponin T Total Protein Albumin Crossmatch 11/17/21 11/17/21 11/18/21 16:00 17:42 00:01 RBC Hgb Hct MCH RDW Lymph % (Auto) Lymph # (Auto) Seg Neutrophils % Seg Neuts % (Manual) Lymphocytes % (Manual) Seg Neutrophils # Seg Neutrophils # Man Lymphocytes # (Manual) Heparin Anti-Xa Level ABG pH ABG pO2 ABG HCO3 ABG O2 Saturation ABG Base Excess ABG Hemoglobin Oxyhemoglobin Sodium 131 L Potassium Chloride 89.5 L Carbon Dioxide Creatinine Glucose 114 H POC Glucose 120 H 195 H Lactic Acid Calcium Magnesium AST Alkaline Phosphatase Troponin T Total Protein Albumin Crossmatch 11/18/21 11/18/21 11/18/21 03:41 05:02 05:18 RBC Hgb 7.8 L Hct 25.0 L MCH RDW Lymph % (Auto) Lymph # (Auto) Seg Neutrophils % Seg Neuts % (Manual) Lymphocytes % (Manual) Seg Neutrophils # Seg Neutrophils # Man Lymphocytes # (Manual) Heparin Anti-Xa Level ABG pH ABG pO2 ABG HCO3 ABG O2 Saturation ABG Base Excess ABG Hemoglobin Oxyhemoglobin Sodium Potassium Chloride Carbon Dioxide Creatinine Glucose POC Glucose 145 H 144 H Lactic Acid Calcium Magnesium AST Alkaline Phosphatase Troponin T Total Protein Albumin Crossmatch 11/18/21 11/18/21 06:15 10:02 RBC Hgb Hct MCH RDW Lymph % (Auto) Lymph # (Auto) Seg Neutrophils % Seg Neuts % (Manual) Lymphocytes % (Manual) Seg Neutrophils # Seg Neutrophils # Man Lymphocytes # (Manual) Heparin Anti-Xa Level ABG pH ABG pO2 ABG HCO3 ABG O2 Saturation ABG Base Excess ABG Hemoglobin Oxyhemoglobin Sodium 131 L Potassium 3.2 L Chloride 85.5 L Carbon Dioxide 33 H D Creatinine Glucose 177 H POC Glucose 136 H Lactic Acid Calcium Magnesium AST Alkaline Phosphatase Troponin T Total Protein Albumin Crossmatch Chest x-ray: image reviewed Allied health notes reviewed: nursing
[2021-11-18] MEDS ORDERED: FUROSEMIDE 40 MG/4 ML INJ IV ONE (13:00)
[2021-11-18] MEDS ORDERED: POTASSIUM CHLORIDE ER 20 MEQ TAB PO ONE (13:00)
[2021-11-18] MEDS: APIXABAN 5 MG TAB PO SCH ×2 (13:36→23:28)
[2021-11-18 15:05] LABS: ABG Base Excess 9.7 mmol/L (-2.0-3.0); ABG HCO3 34.2 mmol/L (20.0-26.0); ABG Methemoglobin 0.5 % (0.0-1.5); ABG Oxygen Saturation 97.2 % (95.0-99.0); ABG PCO2 47.2 mm Hg; ABG PH 7.477 pH Units (7.350-7.450); ABG PO2 86.8 mm Hg (80.0-90.0)
[2021-11-18 15:30] LABS: Hematocrit 26.4 % (30.3-42.9); Hemoglobin 8.1 gm/dl (10.1-14.3); Mean Corpuscular HGB Conc 31 % (30-34); Mean Corpuscular Volume 80 fl (79-97); Platelet Count 393 K/mm3 (140-440); Red Blood Count 3.29 M/mm3 (3.65-5.03)
[2021-11-18 15:40] LABS: INR 1.11 (0.87-1.13); Red Cell Distribution Width 20.6 % (13.2-15.2)
[2021-11-18 15:48] LABS: Partial Thromboplastin Time 61.4 Sec. (24.2-36.6)
[2021-11-18 16:27] LABS: BUN/Creatinine Ratio 29; Blood Urea Nitrogen 20 mg/dL (7-17); Calcium 8.3 mg/dL (8.4-10.2); Hemolysis Index 13
[2021-11-18] MEDS: INSULIN GLARGINE 100 UNITS/ML SUB-Q SCH (23:19)
[2021-11-19 05:05] LABS: Blood Urea Nitrogen 19 mg/dL (7-17); Calcium 8.6 mg/dL (8.4-10.2); Hemolysis Index 10
[2021-11-19] MEDS: FUROSEMIDE 40 MG/4 ML INJ IV SCH (05:07)
[2021-11-19] MEDS: INSULIN LISPRO 100 UNIT/ML SUB-Q SCH ×3 (05:07→18:00)
[2021-11-19 05:09] LABS: BUN/Creatinine Ratio 32
[2021-11-19] MEDS ORDERED: POTASSIUM CHLORIDE ER 20 MEQ TAB PO ONE (08:00)
--- NOTE | 2021-11-19 08:00 | Progress Note ---
Assessment and Plan Assessment and plan: Patient is a 71-year-old female recently admitted on 11/08 and discharged on 11/12 for acute hypoxemic respiratory failure, acute PE, lower extremity DVT. She is currently on Eliquis. Returns today with complaint of recurrent shortness of breath. She is tachycardic and hypotensive. EMS reports sats 50% on room air and placed her on CPAP. Hospital Course: 11/15/2021 Patient decompensated this a.m. Patient transferred to [facility] Patient on BiPAP Patient on IV heparin Pulmonary/manager social media consulted 11/16: improved clinically. Still requiring BIPAP. RT will attempt HiFlo today. BIPAP qhs and prn. ABG last night : 7.4/44/227/27 on 75%. Will continue diuresis with lasix IV bid. Continue heparin gtt for tx of small PE's identified last admit. Bridge to coumadin. Will follow pulmonary recommendations. ABG/CXR ordered for tomorrow AM. 11/17: Worsening infiltrates on CXR. Ordered CT Chest. Continue heparin gtt ab.4/41/83/26 on BIPAP Fio2 40%. Continue HiFlo during the day and BIPAP qhs. Continue Diuresis with Lasix, patient still remains net positive. Extensive multifocal pneumonia wit hmediastinal and hilar LN. Moderate BL pleural efusions noted. Significant left sided effusion, may need thoracentesis if patient does not respond to diuresis. D/w Dr. Sandra bardales 11/18: Febrile overnight, Bcx/Sputum cx ordered. Patchy opacities on CT Chest could be access services representative of developing pneumonia. Ordered Azithromycin and Rocephin IV. Continue diuresis with lasix and metalazone. CXR and abg ordered for AM. 11/19: Improved oxygenation. On nasal canula. CXR and abg show improvement. Lasix will be change to daily dosing. D/c azithromycin and rocephin, doubt pneumonic process. Transfer to floor Assessment and plan #Acute Respiratory failure with hypoxia #Chronic Obstructive Pulmonary Disease #Community Acquired Pneumonia, ruled out Severe hypoxemia suspect large component of pulmonary edema. Chest xray 11/14/21 reported Persistent basilar effusions. Mild worsening edema and basilar opacity. No pneumothorax. Noted old pulmonary embolism on CTA chest last admission CT chest ordered: demonstrates:Extensive multifocal pneumonia with mediastinal and hilar LN. Moderate BL pleural efusions noted and interlobular septal thickening consistent with CHF/pulmonary edema. BCX/Sputum culture Initiated on Azithromycin+Rocephin IV on 11/18, d/c abx today. doubt pneuomnia Needs IV heparin Eliquis not adequate patient decompensated AM of 11/15. Patient initiated on BiPAP...will work to de-escalate to Lasix 40 mg IV bid AM CXR and ABG ordered. Nebulizer therapy with albuterol prn Pulmonary consulted # Subacute pulmonary embolism Present from prior admission, doubt failure on AC No RV strain On heparin drip Pulmonary embolism x 2 diagnosed last admission, nonocclusive small Will need to be d/c on DOAC. #Anemia - hgb: 6.9, improved Hgb 7.7 - transfused 1 unit prbc on 11/15 # PAD (peripheral artery disease) Patient stents and left total knee amputation Vascular surgery consult if necessary #Hypertension Continue antihypertensives and adjust medications as necessary # T2DM (type 2 diabetes mellitus) Coverage for now Check hemoglobin A1c # GERD (gastroesophageal reflux disease) On PPIs # DVT prophylaxis On heparin drip and GI prophylaxis # Advance care planning Disease education conducted, care plan discussed, diagnosis and prognosis discussed. Patient is in the patient is full code. Patient acknowledges understanding of the care plan. +30 minutes. The high probability of a clinically significant, sudden or life threatening deterioration of the [multi] system(s) required my full and direct attention, intervention and personal management. The aggregate critical care time was [60] minutes. This time is in addition to time spent performing reported procedures but includes the following: [x] Data Review and interpretation [x] Patient assessment and monitoring of vital signs [x] Documentation [x] Medication orders and management History Interval history: NO acute complaints. Resting comfortably on bedside encounter on nasal cannula. Hospitalist Physical - Physical exam Narrative exam: General appearance: Present: severe distress, well-nourished - EENT Eyes: PERRL, EOM intact ENT: hearing intact, clear oral mucosa Ears: bilateral: normal - Neck Neck: supple, normal ROM - Respiratory Respiratory effort: normal Respiratory: bilateral: diminished, rhonchi, wheezing, negative: other - Breasts Breasts: normal - Cardiovascular Rhythm: regular Heart Sounds: Present: S1 & S2. Absent: gallop, rub Extremities: pulses intact, No edema, normal color, Full ROM, abnormal (Left above-knee amputation) Extremity abnormal: other (Left above-knee amputation) - Gastrointestinal General gastrointestinal: Present: soft, non-tender, non-distended, normal bowel sounds - Genitourinary Female genitourinary: normal - Integumentary Integumentary: clear, warm, dry - Musculoskeletal Musculoskeletal: 1, strength equal bilaterally - Neurologic Neurologic: moves all extremities - Psychiatric Psychiatric: memory intact, appropriate mood/affect, intact judgment & insight - Allied health notes Allied health notes reviewed: nursing, case management - Constitutional Vitals: Temp Pulse Resp BP Pulse Ox 98.7 F 81 18 123/50 99 11/19/21 04:04 11/19/21 05:01 11/19/21 05:01 11/19/21 05:01 11/19/21 05:01 General appearance: Present: severe distress, well-nourished HEART Score - HEART Score Troponin: Troponin T 0.261 ng/mL (0.00-0.029) H* D 11/14/21 16:40 Results - Labs CBC & Chem 7: 11/18/21 14:11 11/19/21 04:37 Labs: Laboratory Last Values WBC 4.1 K/mm3 (4.5-11.0) L 11/18/21 14:11 RBC 3.29 M/mm3 (3.65-5.03) L 11/18/21 14:11 Hgb 8.1 gm/dl (10.1-14.3) L 11/18/21 14:11 Hct 26.4 % (30.3-42.9) L 11/18/21 14:11 MCV 80 fl (79-97) 11/18/21 14:11 MCH 25 pg (28-32) L 11/18/21 14:11 MCHC 31 % (30-34) 11/18/21 14:11 RDW 20.6 % (13.2-15.2) H 11/18/21 14:11 Plt Count 393 K/mm3 (140-440) 11/18/21 14:11 Lymph % (Auto) 7.2 % (13.4-35.0) L 11/17/21 05:09 Dickens % (Auto) 5.8 % (0.0-7.3) 11/17/21 05:09 Eos % (Auto) 1.6 % (0.0-4.3) 11/17/21 05:09 Baso % (Auto) 0.7 % (0.0-1.8) 11/17/21 05:09 Lymph # (Auto) 0.5 K/mm3 (1.2-5.4) L 11/17/21 05:09 Dickens # (Auto) 0.4 K/mm3 (0.0-0.8) 11/17/21 05:09 Eos # (Auto) 0.1 K/mm3 (0.0-0.4) 11/17/21 05:09 Baso # (Auto) 0.1 K/mm3 (0.0-0.1) 11/17/21 05:09 Add Manual Diff Complete 11/14/21 16:40 Total Counted 100 11/14/21 16:40 Seg Neutrophils % 84.7 % (40.0-70.0) H 11/17/21 05:09 Seg Neuts % (Manual) 94.0 % (40.0-70.0) H 11/14/21 16:40 Band Neutrophils % 0 % 11/14/21 16:40 Lymphocytes % (Manual) 3.0 % (13.4-35.0) L 11/14/21 16:40 Reactive Lymphs % (Man) 0 % 11/14/21 16:40 Monocytes % (Manual) 3.0 % (0.0-7.3) 11/14/21 16:40 Eosinophils % (Manual) 0 % (0.0-4.3) 11/14/21 16:40 Basophils % (Manual) 0 % (0.0-1.8) 11/14/21 16:40 Metamyelocytes % 0 % 11/14/21 16:40 Myelocytes % 0 % 11/14/21 16:40 Promyelocytes % 0 % 11/14/21 16:40 Blast Cells % 0 % 11/14/21 16:40 Nucleated RBC % Not Reportable 11/14/21 16:40 Seg Neutrophils # 6.1 K/mm3 (1.8-7.7) 11/17/21 05:09 Seg Neutrophils # Man 8.4 K/mm3 (1.8-7.7) H 11/14/21 16:40 Band Neutrophils # 0.0 K/mm3 11/14/21 16:40 Lymphocytes # (Manual) 0.3 K/mm3 (1.2-5.4) L 11/14/21 16:40 Abs React Lymphs (Man) 0.0 K/mm3 11/14/21 16:40 Monocytes # (Manual) 0.3 K/mm3 (0.0-0.8) 11/14/21 16:40 Eosinophils # (Manual) 0.0 K/mm3 (0.0-0.4) 11/14/21 16:40 Basophils # (Manual) 0.0 K/mm3 (0.0-0.1) 11/14/21 16:40 Metamyelocytes # 0.0 K/mm3 11/14/21 16:40 Myelocytes # 0.0 K/mm3 11/14/21 16:40 Promyelocytes # 0.0 K/mm3 11/14/21 16:40 Blast Cells # 0.0 K/mm3 11/14/21 16:40 WBC Morphology Not Reportable 11/14/21 16:40 Hypersegmented Neuts Not Reportable 11/14/21 16:40 Hyposegmented Neuts Not Reportable 11/14/21 16:40 Hypogranular Neuts Not Reportable 11/14/21 16:40 Smudge Cells Not Reportable 11/14/21 16:40 Toxic Granulation Not Reportable 11/14/21 16:40 Toxic Vacuolation Not Reportable 11/14/21 16:40 Dohle Bodies Not Reportable 11/14/21 16:40 Pelger-Huet Anomaly Not Reportable 11/14/21 16:40 Mery Rods Not Reportable 11/14/21 16:40 Platelet Estimate Consistent w auto 11/14/21 16:40 Clumped Platelets Not Reportable 11/14/21 16:40 Plt Clumps, EDTA Not Reportable 11/14/21 16:40 Large Platelets Not Reportable 11/14/21 16:40 Giant Platelets Not Reportable 11/14/21 16:40 Platelet Satelliting Not Reportable 11/14/21 16:40 Plt Morphology Comment Not Reportable 11/14/21 16:40 RBC Morphology Not Reportable 11/14/21 16:40 Dimorphic RBCs Not Reportable 11/14/21 16:40 Polychromasia Not Reportable 11/14/21 16:40 Hypochromasia 2+ 11/14/21 16:40 Poikilocytosis Not Reportable 11/14/21 16:40 Anisocytosis 1+ 11/14/21 16:40 Microcytosis Not Reportable 11/14/21 16:40 Macrocytosis Not Reportable 11/14/21 16:40 Spherocytes Not Reportable 11/14/21 16:40 Pappenheimer Bodies Not Reportable 11/14/21 16:40 Sickle Cells Not Reportable 11/14/21 16:40 Target Cells 1+ 11/14/21 16:40 Tear Drop Cells Not Reportable 11/14/21 16:40 Ovalocytes Not Reportable 11/14/21 16:40 Helmet Cells Not Reportable 11/14/21 16:40 [place] Bodies Not Reportable 11/14/21 16:40 [place] Rings Not Reportable 11/14/21 16:40 Felipe Cells 1+ 11/14/21 16:40 Bite Cells Not Reportable 11/14/21 16:40 Crenated Cell Not Reportable 11/14/21 16:40 Elliptocytes Not Reportable 11/14/21 16:40 Acanthocytes (Spur) Not Reportable 11/14/21 16:40 Rouleaux Not Reportable 11/14/21 16:40 Hemoglobin C Crystals Not Reportable 11/14/21 16:40 Schistocytes Not Reportable 11/14/21 16:40 Malaria parasites Not Reportable 11/14/21 16:40 Jonah Bodies Not Reportable 11/14/21 16:40 Hem Pathologist Commnt No 11/14/21 16:40 PT 15.9 Sec. (12.2-14.9) H 11/18/21 14:11 INR 1.11 (0.87-1.13) 11/18/21 14:11 APTT 61.4 Sec. (24.2-36.6) H* 11/18/21 14:11 Heparin Anti-Xa Level 0.32 U.I./ml (0.3-0.7) 11/18/21 05:02 ABG pH 7.477 pH Units (7.350-7.450) H 11/18/21 14:45 ABG pCO2 47.2 mm Hg 11/18/21 14:45 ABG pO2 86.8 mm Hg (80.0-90.0) 11/18/21 14:45 ABG HCO3 34.2 mmol/L (20.0-26.0) H 11/18/21 14:45 ABG O2 Saturation 97.2 % (95.0-99.0) 11/18/21 14:45 ABG O2 Content 9.4 (0.0-44) 11/18/21 14:45 ABG Base Excess 9.7 mmol/L (-2.0-3.0) H 11/18/21 14:45 ABG Hemoglobin 6.9 gm/dl (12.0-16.0) L 11/18/21 14:45 ABG Carboxyhemoglobin 1.6 % (0.0-5.0) 11/18/21 14:45 ABG Methemoglobin 0.5 % (0.0-1.5) 11/18/21 14:45 Oxyhemoglobin 95.0 % (95.0-99.0) 11/18/21 14:45 FiO2 35 % 11/18/21 14:45 Sodium 129 mmol/L (137-145) L 11/19/21 04:37 Potassium 3.2 mmol/L (3.6-5.0) L 11/19/21 04:37 Chloride 82.4 mmol/L (98-107) L 11/19/21 04:37 Carbon Dioxide 39 mmol/L (22-30) H D 11/19/21 04:37 Anion Gap 11 mmol/L 11/19/21 04:37 BUN 19 mg/dL (7-17) H 11/19/21 04:37 Creatinine 0.6 mg/dL (0.6-1.2) 11/19/21 04:37 Estimated GFR > 60 ml/min 11/19/21 04:37 BUN/Creatinine Ratio 32 % 11/19/21 04:37 Glucose 123 mg/dL (65-100) H 11/19/21 04:37 POC Glucose 142 mg/dL (70-105) H 11/19/21 05:07 Lactic Acid 1.30 mmol/L (0.7-2.0) 11/15/21 03:33 Calcium 8.6 mg/dL (8.4-10.2) 11/19/21 04:37 Magnesium 1.60 mg/dL (1.7-2.3) L 11/14/21 16:40 Total Bilirubin < 0.20 mg/dL (0.1-1.2) 11/15/21 03:33 AST 35 units/L (5-40) 11/15/21 03:33 ALT 20 units/L (7-56) 11/15/21 03:33 Alkaline Phosphatase 122 units/L (35-129) 11/15/21 03:33 Troponin T 0.261 ng/mL (0.00-0.029) H* D 11/14/21 16:40 Total Protein 4.8 g/dL (6.3-8.2) L 11/15/21 03:33 Albumin 2.5 g/dL (3.9-5) L 11/15/21 03:33 Albumin/Globulin Ratio 1.1 % 11/15/21 03:33 Coronavirus (PCR) Negative (Negative) 11/15/21 Unknown Blood Type A NEGATIVE 11/15/21 09:38 Antibody Screen Negative 11/15/21 09:38 Crossmatch See Detail 11/15/21 09:38 Microbiology: Microbiology 11/18/21 12:07 Peripheral/Venous Blood Culture - Preliminary Culture in Progress 11/18/21 10:02 Peripheral/Venous Blood Culture - Preliminary Culture in Progress Sanchez/IV: Voiding Method Indwelling Catheter Active Medications - Current Medications Current Medications: Generic Name Dose Route Start Last Admin Trade Name Freq PRN Reason Stop Dose Admin Albuterol/Ipratropium 1 ampul 11/16/21 20:00 11/18/21 20:51 Ipratropium/Albuterol Sulfate 3 Ml Ampul.Neb IH 1 ampul TIDRT CHRISTOPHER Administration Apixaban 5 mg 11/18/21 13:00 11/18/21 23:28 Apixaban 5 Mg Tab PO 5 mg Q12HR CHRISTOPHER Administration Protocol Atorvastatin Calcium 20 mg 11/14/21 22:00 11/18/21 22:02 Atorvastatin 20 Mg Tab PO 20 mg QHS CHRISTOPHER Administration Carvedilol 3.125 mg 11/14/21 22:00 11/18/21 22:02 Carvedilol 3.125 Mg Tab PO 3.125 mg BID CHRISTOPHER Administration Citalopram Hydrobromide 20 mg 11/14/21 22:00 11/18/21 09:43 Citalopram 20 Mg Tab PO 20 mg DAILY CHRISTOPHER Administration Duloxetine HCl 30 mg 11/14/21 22:00 11/18/21 22:02 Duloxetine 30 Mg Cap PO 30 mg BID CHRISTOPHER Administration Ferrous Gluconate 324 mg 11/15/21 08:00 11/18/21 22:02 Ferrous Gluconate 324 Mg Tab PO 324 mg TID CHRISTOPHER Administration Furosemide 40 mg 11/15/21 18:00 11/19/21 05:07 Furosemide 40 Mg/4 Ml Inj IV 40 mg 0600,1800 CHRISTOPHER Administration Ceftriaxone Sodium 1 gm in 50 mls @ 100 mls/hr 11/18/21 10:00 11/18/21 09:50 Rocephin/Ns 1 Gm/50 Ml IV 100 mls/hr Q24H CHRISTOPHER Administration Protocol Azithromycin 500 mg in 250 mls @ 250 mls/hr 11/18/21 10:00 11/18/21 09:50 Zithromax/Ns IV 250 mls/hr Q24H CHRISTOPHER Administration Insulin Glargine 20 units 11/16/21 22:00 11/18/21 23:19 Insulin Glargine 100 Units/Ml SUB-Q 20 units QHS CHRISTOPHER Administration Insulin Human Lispro 0 unit 11/15/21 18:00 11/19/21 05:07 Insulin Lispro 100 Unit/Ml SUB-Q Not Given Q6HR [facility] Protocol Labetalol HCl 10 mg 11/17/21 18:46 11/17/21 20:23 Labetalol 20 Mg/4 Ml Inj IV 10 mg Q4H PRN Administration Blood Pressure Levetiracetam 500 mg 11/14/21 22:00 11/18/21 22:02 Levetiracetam 500 Mg Tab PO 500 mg BID CHRISTOPHER Administration Losartan Potassium 25 mg 11/14/21 22:00 11/18/21 09:44 Losartan 25 Mg Tab PO 25 mg QDAY CHRISTOPHER Administration Metoclopramide HCl 10 mg 11/14/21 21:49 Metoclopramide 10 Mg/2 Ml Inj IV Q6H PRN Nausea And Vomiting Morphine Sulfate 2 mg 11/14/21 21:49 Morphine 2 Mg/1 Ml Inj IV Q4H PRN Pain, Moderate (4-6) Ondansetron HCl 4 mg 11/14/21 21:49 Ondansetron 4 Mg/2 Ml Inj IV Q3H PRN Nausea And Vomiting Pantoprazole Sodium 40 mg 11/16/21 10:00 11/18/21 09:43 Pantoprazole 40 Mg Tab PO 40 mg DAILY CHRISTOPHER Administration Potassium Chloride 8 meq 11/19/21 10:00 Potassium Chloride Er 8 Meq Tab PO QDAY CHRISTOPHER Potassium Chloride 40 meq 11/19/21 08:00 Potassium Chloride Er 20 Meq Tab PO 11/19/21 08:01 ONCE ONE Primidone 50 mg 11/14/21 22:00 11/18/21 22:02 Primidone 50 Mg Tab PO 50 mg BID CHRISTOPHER Administration Sodium Chloride 10 ml 11/14/21 22:00 11/18/21 22:03 Sodium Chloride 0.9% 10 Ml Flush Syringe IV 10 ml BID CHRISTOPHER Administration Sodium Chloride 10 ml 11/14/21 21:49 Sodium Chloride 0.9% 10 Ml Flush Syringe IV PRN PRN LINE FLUSH Nutrition/Malnutrition Assess - Dietary Evaluation Nutrition/Malnutrition Findings: Nutrition Notes Start: 11/16/21 12:59 Freq: Status: Active Protocol: Document 11/16/21 12:59 [facility] (Rec: 11/16/21 13:03 [facility] [id number]) Nutrition Notes 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 Pt assessed by RD during recent admission (11/09). Burn Absent Trauma Absent GI Symptoms Constipation Skin Integrity/Comment Buttock wound Minimum of two criteria No Reduced Curtain Fitter Strength Measurably Reduced (severe) #1 Nutrition Diagnosis Predicted suboptimal energy intake Etiology SOB As Evidenced by Signs and Symptoms pt admitted on BiPap support but currently on high-flow nasal cannula Is patient on ventilator? No Is Patient Ambulatory and/or Out of Bed No REE-([place]. Jeor-confined to bed) 1382.172 Calculation Used for Recommendations [place] Jeor Additional Notes Pro needs 1-1.2g/k-75g/ day Fluid needs per MD. Nutrition Intervention Change Diet Order: Continue current diet order as tolerated Goal #1 PO tolerance Goal #2 PO intakes to meet at least 75 % energy and pro needs Anticipated Discharge Needs: Heart-healthy, CHO-controlled diet Follow-Up By: 11/19/21 Additional Comments F/U: intakes
--- NOTE | 2021-11-19 08:33 | XRay Report ---
CHEST 1 VIEW 11/19/2021 8:06 AM INDICATION / CLINICAL INFORMATION: resp failure. COMPARISON: 11/17/2021 FINDINGS: SUPPORT DEVICES: None. HEART / MEDIASTINUM: No significant abnormality. Previous sternotomy is again noted. LUNGS / PLEURA: Bilateral pulmonary edema or infiltrates have nearly resolved since the exam 2 days a go. Trace pleural effusions are suspected which also appear decreased. No pneumothorax. ADDITIONAL FINDINGS: No significant additional findings. IMPRESSION: 1. Near resolution of the bilateral pulmonary edema or infiltrates. Signer Name: Victorino Orosco Jr, MD Signed: 11/19/2021 8:29 AM Workstation Name: [id number]
[2021-11-19] MEDS: POTASSIUM CHLORIDE 10 MEQ 10 MEQ/100 ML BAG IV SCH ×4 (08:47→13:41)
[2021-11-19] MEDS: FERROUS GLUCONATE 324 MG TAB PO SCH ×3 (08:48→20:00)
[2021-11-19] MEDS: DULoxetine 30 MG CAP PO SCH ×2 (09:10→23:46)
[2021-11-19] MEDS: CITALOPRAM 20 MG TAB PO SCH (09:10)
[2021-11-19] MEDS: carvediloL 3.125 MG TAB PO SCH ×2 (09:10→23:53)
[2021-11-19] MEDS: levETIRAcetam 500 MG TAB PO SCH ×2 (09:11→23:47)
[2021-11-19] MEDS: POTASSIUM CHLORIDE 20 MEQ PACKET PO SCH (09:11)
[2021-11-19] MEDS: LOSARTAN 25 MG TAB PO SCH (09:11)
[2021-11-19] MEDS: PRIMIDONE 50 MG TAB PO SCH ×2 (09:11→23:48)
[2021-11-19] MEDS: PANTOPRAZOLE 40 MG TAB PO SCH (09:11)
[2021-11-19] MEDS: APIXABAN 5 MG TAB PO SCH ×2 (09:11→23:46)
[2021-11-19] MEDS ORDERED: POTASSIUM CHLORIDE ER 8 MEQ TAB PO SCH (10:00)
[2021-11-19] MEDS: cefTRIAXone/NS 1 GM/50 ML 1 GM/50 ML BAG IV SCH (10:14)
--- NOTE | 2021-11-19 11:16 | Progress Note ---
Assessment and Plan Acute Respiratory failure with hypoxia, s/p BIPAP Chronic Obstructive Pulmonary Disease, on going tobacco use Severe hypoxemia suspect large component of pulmonary edema. Subacute pulmonary embolism Anemia -transfused 1 unit prbc on 11/15 PAD (peripheral artery disease) -Patient stents and left AKA Hypertension T2DM (type 2 diabetes mellitus) GERD (gastroesophageal reflux disease) CAD s/p CABG No clinical evidence to suggest pneumonia. Will get procalcitonin. If procalcitonin is within normal, de-escalate/discontinue antibiotics Discontinue Murphy catheter Decreased Furosemide to daily dosing, she has metabolic alkalosis with increase in BUN. Please change IV Lasix to oral in the morning Can transfer to telemetry Evaluation for home oxygen therapy as part of discharge planning -Continue to titrate supplemental oxygen to keep Sp)2 90-92% -Replete potassium, keep K4 and Mag at 2 - Apixaban, therapeutic dosing -Chronic home medications -Continue to monitor closely for bleeding, had EGD 10/29 which was unremarkable. -Supportive transfusions as clinically indicated to keep HgB>7g/dL -Smoking cessation counseling -Mobility, off loading per facility protocol to prevent pressure ulcers -Restrictive fluid strategies as tolerated by her hemodynamics and renal function -Replace electrolytes as clinically indicated -Bronchodilators - continue to avoid benzodiazepines, reduce the possibility of delirium - Maintenance of sleep-wake cycle, avoid delirium PT/OT to evaluate and treat Will need outpatient pulmonary follow up on discharge CONDITION: FAIR PROGNOSIS: FAIR CODE STATUS: FULL CODE Subjective Date of service: 11/19/21 Principal diagnosis: Acute respiratory failure with hypoxia, pulmonary embolism Interval history: Summary; Patient is a 71-year-old female recently admitted on 11/08 and discharged on 11/12 for acute hypoxemic respiratory failure, acute PE, lower extremity DVT. She is currently on Eliquis. Returns today with complaint of recurrent shortness of breath. She is tachycardic and hypotensive. EMS reports sats 50% on room air and placed her on CPAP. Seen and examined.Clinically improving, Net negative 4L, has hypokalemia on BMP Febrile episode yesterday, empiric antibiotics for CAP started by primary service States she is much better, denies any chest pain or shortness of breath. No adverse overnight events. Currently on 4L oxygen NC, lying flat and in no dis tress Discussed with nursing and respiratory care staff. Objective Vital Signs - 12hr 0911/18/21 11/19/21 23:23 23:50 00:00 Temperature Pulse Rate 79 82 84 Pulse Rate [ From Monitor] Respiratory 19 21 Rate Blood Pressure 143/54 138/57 O2 Sat by Pulse 98 97 Oximetry 11/19/21 11/19/21 11/19/21 00:02 01:00 02:00 Temperature Pulse Rate 87 79 76 Pulse Rate [ From Monitor] Respiratory 14 18 12 Rate Blood Pressure 138/57 126/53 138/57 O2 Sat by Pulse 98 96 98 Oximetry 11/19/21 11/19/21 11/19/21 03:00 04:00 04:04 Temperature 98.7 F Pulse Rate 83 80 Pulse Rate [ From Monitor] Respiratory 16 17 Rate Blood Pressure 145/61 143/59 O2 Sat by Pulse 96 96 Oximetry 11/19/21 11/19/21 11/19/21 05:01 05:48 06:00 Temperature Pulse Rate 81 79 77 Pulse Rate [ From Monitor] Respiratory 18 12 15 Rate Blood Pressure 123/50 110/42 O2 Sat by Pulse 99 99 99 Oximetry 11/19/21 11/19/21 11/19/21 07:00 08:00 09:00 Temperature Pulse Rate 75 72 76 Pulse Rate [ 75 From Monitor] Respiratory 11 L 15 18 Rate Blood Pressure 118/51 142/59 146/57 O2 Sat by Pulse 100 93 99 Oximetry 11/19/21 11/19/21 11/19/21 09:10 09:11 10:00 Temperature Pulse Rate 79 79 82 Pulse Rate [ From Monitor] Respiratory 15 Rate Blood Pressure 150/48 150/48 135/66 O2 Sat by Pulse 99 Oximetry Constitutional: no acute distress, alert Eyes: non-icteric ENT: oropharynx moist Neck: supple, no JVD Effort: normal Ascultation: Bilateral: diminished breath sounds Cardiovascular: regular rate and rhythm, other (S1,S2) Gastrointestinal: normoactive bowel sounds, soft, non-tender Integumentary: normal Extremities: no cyanosis, no edema, other (Left AKA, murphy ) Neurologic: normal mental status, non-focal exam, pupils equal and round, motor strength normal and Psychiatric: mood appropriate, affect normal CBC and BMP: 11/18/21 14:11 11/19/21 04:37 ABG, PT/INR, D-dimer: ABG ABG pH 7.477 pH Units (7.350-7.450) H 11/18/21 14:45 ABG pCO2 47.2 mm Hg 11/18/21 14:45 ABG pO2 86.8 mm Hg (80.0-90.0) 11/18/21 14:45 ABG O2 Saturation 97.2 % (95.0-99.0) 11/18/21 14:45 PT/INR, D-dimer PT 15.9 Sec. (12.2-14.9) H 11/18/21 14:11 INR 1.11 (0.87-1.13) 11/18/21 14:11 Abnormal lab findings: Abnormal Labs 11/14/21 11/14/21 11/14/21 16:40 16:40 16:40 WBC RBC 3.14 L Hgb 7.6 L Hct 25.0 L MCH 24 L RDW 20.2 H Lymph % (Auto) Lymph # (Auto) Seg Neutrophils % Seg Neuts % (Manual) 94.0 H Lymphocytes % (Manual) 3.0 L Seg Neutrophils # Seg Neutrophils # Man 8.4 H Lymphocytes # (Manual) 0.3 L PT APTT Heparin Anti-Xa Level ABG pH ABG pO2 ABG HCO3 ABG O2 Saturation ABG Base Excess ABG Hemoglobin Oxyhemoglobin Sodium 129 L Potassium Chloride 90.8 L Carbon Dioxide BUN Creatinine Glucose 426 H POC Glucose Lactic Acid 4.10 H* Calcium 8.2 L Magnesium 1.60 L AST 50 H Alkaline Phosphatase 152 H Troponin T 0.261 H* D Total Protein 5.5 L Albumin 2.9 L Crossmatch 11/14/21 11/14/21 11/14/21 16:45 17:37 18:28 WBC RBC Hgb Hct MCH RDW Lymph % (Auto) Lymph # (Auto) Seg Neutrophils % Seg Neuts % (Manual) Lymphocytes % (Manual) Seg Neutrophils # Seg Neutrophils # Man Lymphocytes # (Manual) PT APTT Heparin Anti-Xa Level ABG pH ABG pO2 45.2 L 59.3 L ABG HCO3 ABG O2 Saturation 76.1 L 89.5 L ABG Base Excess ABG Hemoglobin 8.8 L 7.4 L Oxyhemoglobin 72.6 L 85.9 L Sodium Potassium Chloride Carbon Dioxide BUN Creatinine Glucose POC Glucose Lactic Acid 2.60 H* Calcium Magnesium AST Alkaline Phosphatase Troponin T Total Protein Albumin Crossmatch 11/14/21 11/14/21 11/15/21 19:50 22:55 03:33 WBC RBC 2.81 L Hgb 7.1 L 6.8 L Hct 23.0 L 22.3 L MCH 24 L RDW 20.0 H Lymph % (Auto) 5.2 L Lymph # (Auto) 0.5 L Seg Neutrophils % 89.1 H Seg Neuts % (Manual) Lymphocytes % (Manual) Seg Neutrophils # 9.0 H Seg Neutrophils # Man Lymphocytes # (Manual) PT APTT Heparin Anti-Xa Level ABG pH ABG pO2 ABG HCO3 ABG O2 Saturation ABG Base Excess ABG Hemoglobin Oxyhemoglobin Sodium Potassium Chloride Carbon Dioxide BUN Creatinine Glucose POC Glucose Lactic Acid 2.40 H* Calcium Magnesium AST Alkaline Phosphatase Troponin T Total Protein Albumin Crossmatch 11/15/21 11/15/21 11/15/21 03:33 05:27 08:02 WBC RBC Hgb Hct MCH RDW Lymph % (Auto) Lymph # (Auto) Seg Neutrophils % Seg Neuts % (Manual) Lymphocytes % (Manual) Seg Neutrophils # Seg Neutrophils # Man Lymphocytes # (Manual) PT APTT Heparin Anti-Xa Level < 0.10 L ABG pH ABG pO2 ABG HCO3 ABG O2 Saturation ABG Base Excess ABG Hemoglobin Oxyhemoglobin Sodium 132 L Potassium Chloride 97.8 L Carbon Dioxide BUN Creatinine 0.4 L Glucose 237 H POC Glucose 306 H Lactic Acid Calcium 7.9 L Magnesium AST Alkaline Phosphatase Troponin T Total Protein 4.8 L Albumin 2.5 L Crossmatch 11/15/21 11/15/21 11/15/21 08:16 08:23 09:38 WBC RBC Hgb Hct MCH RDW Lymph % (Auto) Lymph # (Auto) Seg Neutrophils % Seg Neuts % (Manual) Lymphocytes % (Manual) Seg Neutrophils # Seg Neutrophils # Man Lymphocytes # (Manual) PT APTT Heparin Anti-Xa Level ABG pH 7.167 L* ABG pO2 57.2 L ABG HCO3 ABG O2 Saturation 76.0 L ABG Base Excess -7.1 L ABG Hemoglobin 6.8 L Oxyhemoglobin 74.2 L Sodium Potassium Chloride Carbon Dioxide BUN Creatinine Glucose POC Glucose 347 H Lactic Acid Calcium Magnesium AST Alkaline Phosphatase Troponin T Total Protein Albumin Crossmatch See Detail 11/15/21 11/15/2122 11:51 13:54 16:40 WBC RBC Hgb Hct MCH RDW Lymph % (Auto) Lymph # (Auto) Seg Neutrophils % Seg Neuts % (Manual) Lymphocytes % (Manual) Seg Neutrophils # Seg Neutrophils # Man Lymphocytes # (Manual) PT APTT Heparin Anti-Xa Level 0.26 L ABG pH ABG pO2 227.2 H ABG HCO3 27.1 H ABG O2 Saturation 99.3 H ABG Base Excess ABG Hemoglobin 5.4 L Oxyhemoglobin Sodium Potassium Chloride Carbon Dioxide BUN Creatinine Glucose POC Glucose 325 H Lactic Acid Calcium Magnesium AST Alkaline Phosphatase Troponin T Total Protein Albumin Crossmatch 11/15/21 11/15/21 11/16/21 17:52 20:48 00:05 WBC RBC Hgb Hct MCH RDW Lymph % (Auto) Lymph # (Auto) Seg Neutrophils % Seg Neuts % (Manual) Lymphocytes % (Manual) Seg Neutrophils # Seg Neutrophils # Man Lymphocytes # (Manual) PT APTT Heparin Anti-Xa Level 0.12 L ABG pH ABG pO2 ABG HCO3 ABG O2 Saturation ABG Base Excess ABG Hemoglobin Oxyhemoglobin Sodium Potassium Chloride Carbon Dioxide BUN Creatinine Glucose POC Glucose 216 H 119 H Lactic Acid Calcium Magnesium AST Alkaline Phosphatase Troponin T Total Protein Albumin Crossmatch 11/16/21 11/16/21 11/16/21 04:30 04:30 05:57 WBC RBC Hgb 7.7 L Hct 24.7 L MCH RDW Lymph % (Auto) Lymph # (Auto) Seg Neutrophils % Seg Neuts % (Manual) Lymphocytes % (Manual) Seg Neutrophils # Seg Neutrophils # Man Lymphocytes # (Manual) PT APTT Heparin Anti-Xa Level < 0.10 L ABG pH ABG pO2 ABG HCO3 ABG O2 Saturation ABG Base Excess ABG Hemoglobin Oxyhemoglobin Sodium Potassium Chloride Carbon Dioxide BUN Creatinine Glucose POC Glucose 135 H Lactic Acid Calcium Magnesium AST Alkaline Phosphatase Troponin T Total Protein Albumin Crossmatch 11/16/21 11/16/21 11/16/21 12:17 12:36 19:36 WBC RBC Hgb Hct MCH RDW Lymph % (Auto) Lymph # (Auto) Seg Neutrophils % Seg Neuts % (Manual) Lymphocytes % (Manual) Seg Neutrophils # Seg Neutrophils # Man Lymphocytes # (Manual) PT APTT Heparin Anti-Xa Level 0.21 L 0.23 L ABG pH ABG pO2 ABG HCO3 ABG O2 Saturation ABG Base Excess ABG Hemoglobin Oxyhemoglobin Sodium Potassium Chloride Carbon Dioxide BUN Creatinine Glucose POC Glucose 144 H Lactic Acid Calcium Magnesium AST Alkaline Phosphatase Troponin T Total Protein Albumin Crossmatch 11/17/21 11/17/21 11/17/21 05:00 05:09 05:09 WBC RBC 3.25 L Hgb 8.1 L Hct 26.3 L MCH 25 L RDW 20.2 H Lymph % (Auto) 7.2 L Lymph # (Auto) 0.5 L Seg Neutrophils % 84.7 H Seg Neuts % (Manual) Lymphocytes % (Manual) Seg Neutrophils # Seg Neutrophils # Man Lymphocytes # (Manual) PT APTT Heparin Anti-Xa Level ABG pH ABG pO2 ABG HCO3 26.6 H ABG O2 Saturation ABG Base Excess ABG Hemoglobin Oxyhemoglobin Sodium 134 L Potassium Chloride 96.0 L Carbon Dioxide BUN Creatinine Glucose POC Glucose Lactic Acid Calcium Magnesium AST Alkaline Phosphatase Troponin T Total Protein Albumin Crossmatch 11/17/21 11/17/21 11/17/21 05:09 11:40 13:42 WBC RBC Hgb Hct MCH RDW Lymph % (Auto) Lymph # (Auto) Seg Neutrophils % Seg Neuts % (Manual) Lymphocytes % (Manual) Seg Neutrophils # Seg Neutrophils # Man Lymphocytes # (Manual) PT APTT Heparin Anti-Xa Level 0.19 L < 0.10 L ABG pH ABG pO2 ABG HCO3 ABG O2 Saturation ABG Base Excess ABG Hemoglobin Oxyhemoglobin Sodium Potassium Chloride Carbon Dioxide BUN Creatinine Glucose POC Glucose 133 H Lactic Acid Calcium Magnesium AST Alkaline Phosphatase Troponin T Total Protein Albumin Crossmatch 11/17/21 11/17/21 11/18/21 16:00 17:42 00:01 WBC RBC Hgb Hct MCH RDW Lymph % (Auto) Lymph # (Auto) Seg Neutrophils % Seg Neuts % (Manual) Lymphocytes % (Manual) Seg Neutrophils # Seg Neutrophils # Man Lymphocytes # (Manual) PT APTT Heparin Anti-Xa Level ABG pH ABG pO2 ABG HCO3 ABG O2 Saturation ABG Base Excess ABG Hemoglobin Oxyhemoglobin Sodium 131 L Potassium Chloride 89.5 L Carbon Dioxide BUN Creatinine Glucose 114 H POC Glucose 120 H 195 H Lactic Acid Calcium Magnesium AST Alkaline Phosphatase Troponin T Total Protein Albumin Crossmatch 11/18/21 11/18/21 11/18/21 03:41 05:02 05:18 WBC RBC Hgb 7.8 L Hct 25.0 L MCH RDW Lymph % (Auto) Lymph # (Auto) Seg Neutrophils % Seg Neuts % (Manual) Lymphocytes % (Manual) Seg Neutrophils # Seg Neutrophils # Man Lymphocytes # (Manual) PT APTT Heparin Anti-Xa Level ABG pH ABG pO2 ABG HCO3 ABG O2 Saturation ABG Base Excess ABG Hemoglobin Oxyhemoglobin Sodium Potassium Chloride Carbon Dioxide BUN Creatinine Glucose POC Glucose 145 H 144 H Lactic Acid Calcium Magnesium AST Alkaline Phosphatase Troponin T Total Protein Albumin Crossmatch 11/18/21 11/18/21 11/18/21 06:15 10:02 11:39 WBC RBC Hgb Hct MCH RDW Lymph % (Auto) Lymph # (Auto) Seg Neutrophils % Seg Neuts % (Manual) Lymphocytes % (Manual) Seg Neutrophils # Seg Neutrophils # Man Lymphocytes # (Manual) PT APTT Heparin Anti-Xa Level ABG pH ABG pO2 ABG HCO3 ABG O2 Saturation ABG Base Excess ABG Hemoglobin Oxyhemoglobin Sodium 131 L Potassium 3.2 L Chloride 85.5 L Carbon Dioxide 33 H D BUN Creatinine Glucose 177 H POC Glucose 136 H 198 H Lactic Acid Calcium Magnesium AST Alkaline Phosphatase Troponin T Total Protein Albumin Crossmatch 11/18/21 11/18/21 11/18/21 14:11 14:11 14:11 WBC 4.1 L RBC 3.29 L Hgb 8.1 L Hct 26.4 L MCH 25 L RDW 20.6 H Lymph % (Auto) Lymph # (Auto) Seg Neutrophils % Seg Neuts % (Manual) Lymphocytes % (Manual) Seg Neutrophils # Seg Neutrophils # Man Lymphocytes # (Manual) PT 15.9 H APTT 61.4 H* Heparin Anti-Xa Level ABG pH ABG pO2 ABG HCO3 ABG O2 Saturation ABG Base Excess ABG Hemoglobin Oxyhemoglobin Sodium 126 L Potassium 3.1 L Chloride 83.8 L Carbon Dioxide BUN 20 H Creatinine Glucose 300 H POC Glucose Lactic Acid Calcium 8.3 L Magnesium AST Alkaline Phosphatase Troponin T Total Protein Albumin Crossmatch 11/18/21 11/18/21 11/18/21 14:45 16:16 23:14 WBC RBC Hgb Hct MCH RDW Lymph % (Auto) Lymph # (Auto) Seg Neutrophils % Seg Neuts % (Manual) Lymphocytes % (Manual) Seg Neutrophils # Seg Neutrophils # Man Lymphocytes # (Manual) PT APTT Heparin Anti-Xa Level ABG pH 7.477 H ABG pO2 ABG HCO3 34.2 H ABG O2 Saturation ABG Base Excess 9.7 H ABG Hemoglobin 6.9 L Oxyhemoglobin Sodium Potassium Chloride Carbon Dioxide BUN Creatinine Glucose POC Glucose 268 H 239 H Lactic Acid Calcium Magnesium AST Alkaline Phosphatase Troponin T Total Protein Albumin Crossmatch 11/19/21 11/19/21 04:37 05:07 WBC RBC Hgb Hct MCH RDW Lymph % (Auto) Lymph # (Auto) Seg Neutrophils % Seg Neuts % (Manual) Lymphocytes % (Manual) Seg Neutrophils # Seg Neutrophils # Man Lymphocytes # (Manual) PT APTT Heparin Anti-Xa Level ABG pH ABG pO2 ABG HCO3 ABG O2 Saturation ABG Base Excess ABG Hemoglobin Oxyhemoglobin Sodium 129 L Potassium 3.2 L Chloride 82.4 L Carbon Dioxide 39 H D BUN 19 H Creatinine Glucose 123 H POC Glucose 142 H Lactic Acid Calcium Magnesium AST Alkaline Phosphatase Troponin T Total Protein Albumin Crossmatch Chest x-ray: image reviewed (Inflitrates have improved) Allied health notes reviewed: nursing
[2021-11-19] MEDS: IPRATROPIUM/ALBUTEROL SULFATE 3 ML AMPUL.NEB IH SCH ×3 (11:27→20:49)
[2021-11-19] MEDS ORDERED: AZITHROMYCIN 250 MG TAB PO SCH (12:00)
[2021-11-19] MEDS ORDERED: POTASSIUM CHLORIDE 20 MEQ PACKET FEEDTUBE SCH (12:00)
[2021-11-20] MEDS: INSULIN GLARGINE 100 UNITS/ML SUB-Q SCH (00:12)
[2021-11-20 06:25] LABS: Hematocrit 28.2 % (30.3-42.9); Hemoglobin 8.7 gm/dl (10.1-14.3); Mean Corpuscular HGB Conc 31 % (30-34); Mean Corpuscular Volume 79 fl (79-97); Platelet Count 341 K/mm3 (140-440); Red Blood Count 3.54 M/mm3 (3.65-5.03)
[2021-11-20 06:26] LABS: Red Cell Distribution Width 20.8 % (13.2-15.2)
[2021-11-20] MEDS: INSULIN LISPRO 100 UNIT/ML SUB-Q SCH ×2 (06:43)
[2021-11-20] MEDS: IPRATROPIUM/ALBUTEROL SULFATE 3 ML AMPUL.NEB IH SCH ×2 (08:10→13:50)
[2021-11-20] MEDS ORDERED: MAGNESIUM SULFATE 2 GM/50 ML BAG IV ONE (09:00)
--- NOTE | 2021-11-20 09:47 | Progress Note ---
Assessment and Plan Acute Respiratory failure with hypoxia, s/p BIPAP Chronic Obstructive Pulmonary Disease, on going tobacco use Severe hypoxemia suspect large component of pulmonary edema. Subacute pulmonary embolism Anemia -transfused 1 unit prbc on 11/15 PAD (peripheral artery disease) -Patient stents and left AKA Hypertension T2DM (type 2 diabetes mellitus) GERD (gastroesophageal reflux disease) CAD s/p CABG No clinical evidence to suggest pneumonia. Evaluation for home oxygen therapy as part of discharge planning -Continue to titrate supplemental oxygen to keep Sp)2 90-92% -Replete potassium, keep K4 and Mag at 2 - Apixaban, therapeutic dosing -Chronic home medications -Continue to monitor closely for bleeding, had EGD 10/29 which was unremarkable. -Supportive transfusions as clinically indicated to keep HgB>7g/dL -Smoking cessation counseling -Mobility, off loading per facility protocol to prevent pressure ulcers -Restrictive fluid strategies as tolerated by her hemodynamics and renal function -Replace electrolytes as clinically indicated -Bronchodilators - continue to avoid benzodiazepines, reduce the possibility of delirium - Maintenance of sleep-wake cycle, avoid delirium PT/OT to evaluate and treat Will need outpatient pulmonary follow up on discharge CONDITION: FAIR PROGNOSIS: FAIR CODE STATUS: FULL CODE Subjective Date of service: 11/20/21 Principal diagnosis: Acute respiratory failure with hypoxia, pulmonary embolism Interval history: Summary; Patient is a 71-year-old female recently admitted on 11/08 and discharged on 11/12 for acute hypoxemic respiratory failure, acute PE, lower extremity DVT. She is currently on Eliquis. Returns today with complaint of recurrent shortness of breath. She is tachycardic and hypotensive. EMS reports sats 50% on room air and placed her on CPAP. Seen and examined.Clinically improving, States she is much better, denies any chest pain or shortness of breath. No adverse overnight events. Currently on 4L oxygen NC, lying flat and in no distress Discussed with nursing and respiratory care staff. Objective Vital Signs - 12hr 11/19/21 11/19/21 11/20/21 22:10 23:53 01:11 Temperature 98.2 F Pulse Rate 73 73 69 Pulse Rate [ Anterior Bilateral Throughout] Respiratory 18 12 Rate Respiratory Rate [Anterior Bilateral Throughout] Blood Pressure 138/54 138/54 Blood Pressure [Left] O2 Sat by Pulse 94 100 Oximetry 11/20/21 11/20/21 04:28 08:10 Temperature 98.4 F Pulse Rate 18 L Pulse Rate [ 60 Anterior Bilateral Throughout] Respiratory 16 Rate Respiratory 18 Rate [Anterior Bilateral Throughout] Blood Pressure Blood Pressure 129/55 [Left] O2 Sat by Pulse 95 Oximetry Constitutional: no acute distress, alert Eyes: non-icteric ENT: oropharynx moist Neck: supple, no JVD Effort: normal Ascultation: Bilateral: diminished breath sounds, rhonchi Cardiovascular: regular rate and rhythm, other (S1,S2) Gastrointestinal: normoactive bowel sounds, soft, non-tender Integumentary: normal Extremities: no cyanosis, no edema, other (Left AKA, murphy ) Neurologic: normal mental status, non-focal exam, pupils equal and round, motor strength normal and Psychiatric: mood appropriate, affect normal CBC and BMP: 11/20/21 05:39 11/20/21 10:41 ABG, PT/INR, D-dimer: ABG ABG pH 7.477 pH Units (7.350-7.450) H 11/18/21 14:45 ABG pCO2 47.2 mm Hg 11/18/21 14:45 ABG pO2 86.8 mm Hg (80.0-90.0) 11/18/21 14:45 ABG O2 Saturation 97.2 % (95.0-99.0) 11/18/21 14:45 PT/INR, D-dimer PT 15.9 Sec. (12.2-14.9) H 11/18/21 14:11 INR 1.11 (0.87-1.13) 11/18/21 14:11 Abnormal lab findings: Abnormal Labs 11/14/21 11/14/21 11/14/21 16:40 16:40 16:40 WBC RBC 3.14 L Hgb 7.6 L Hct 25.0 L MCH 24 L RDW 20.2 H Lymph % (Auto) Lymph # (Auto) Seg Neutrophils % Seg Neuts % (Manual) 94.0 H Lymphocytes % (Manual) 3.0 L Seg Neutrophils # Seg Neutrophils # Man 8.4 H Lymphocytes # (Manual) 0.3 L PT APTT Heparin Anti-Xa Level ABG pH ABG pO2 ABG HCO3 ABG O2 Saturation ABG Base Excess ABG Hemoglobin Oxyhemoglobin Sodium 129 L Potassium Chloride 90.8 L Carbon Dioxide BUN Creatinine Glucose 426 H POC Glucose Lactic Acid 4.10 H* Calcium 8.2 L Magnesium 1.60 L AST 50 H Alkaline Phosphatase 152 H Troponin T 0.261 H* D Total Protein 5.5 L Albumin 2.9 L Crossmatch 11/14/21 11/14/21 11/14/21 16:45 17:37 18:28 WBC RBC Hgb Hct MCH RDW Lymph % (Auto) Lymph # (Auto) Seg Neutrophils % Seg Neuts % (Manual) Lymphocytes % (Manual) Seg Neutrophils # Seg Neutrophils # Man Lymphocytes # (Manual) PT APTT Heparin Anti-Xa Level ABG pH ABG pO2 45.2 L 59.3 L ABG HCO3 ABG O2 Saturation 76.1 L 89.5 L ABG Base Excess ABG Hemoglobin 8.8 L 7.4 L Oxyhemoglobin 72.6 L 85.9 L Sodium Potassium Chloride Carbon Dioxide BUN Creatinine Glucose POC Glucose Lactic Acid 2.60 H* Calcium Magnesium AST Alkaline Phosphatase Troponin T Total Protein Albumin Crossmatch 11/14/21 11/14/21 11/15/21 19:50 22:55 03:33 WBC RBC 2.81 L Hgb 7.1 L 6.8 L Hct 23.0 L 22.3 L MCH 24 L RDW 20.0 H Lymph % (Auto) 5.2 L Lymph # (Auto) 0.5 L Seg Neutrophils % 89.1 H Seg Neuts % (Manual) Lymphocytes % (Manual) Seg Neutrophils # 9.0 H Seg Neutrophils # Man Lymphocytes # (Manual) PT APTT Heparin Anti-Xa Level ABG pH ABG pO2 ABG HCO3 ABG O2 Saturation ABG Base Excess ABG Hemoglobin Oxyhemoglobin Sodium Potassium Chloride Carbon Dioxide BUN Creatinine Glucose POC Glucose Lactic Acid 2.40 H* Calcium Magnesium AST Alkaline Phosphatase Troponin T Total Protein Albumin Crossmatch 11/15/21 11/15/21 11/15/21 03:33 05:27 08:02 WBC RBC Hgb Hct MCH RDW Lymph % (Auto) Lymph # (Auto) Seg Neutrophils % Seg Neuts % (Manual) Lymphocytes % (Manual) Seg Neutrophils # Seg Neutrophils # Man Lymphocytes # (Manual) PT APTT Heparin Anti-Xa Level < 0.10 L ABG pH ABG pO2 ABG HCO3 ABG O2 Saturation ABG Base Excess ABG Hemoglobin Oxyhemoglobin Sodium 132 L Potassium Chloride 97.8 L Carbon Dioxide BUN Creatinine 0.4 L Glucose 237 H POC Glucose 306 H Lactic Acid Calcium 7.9 L Magnesium AST Alkaline Phosphatase Troponin T Total Protein 4.8 L Albumin 2.5 L Crossmatch 11/15/21 11/15/21 11/15/21 08:16 08:23 09:38 WBC RBC Hgb Hct MCH RDW Lymph % (Auto) Lymph # (Auto) Seg Neutrophils % Seg Neuts % (Manual) Lymphocytes % (Manual) Seg Neutrophils # Seg Neutrophils # Man Lymphocytes # (Manual) PT APTT Heparin Anti-Xa Level ABG pH 7.167 L* ABG pO2 57.2 L ABG HCO3 ABG O2 Saturation 76.0 L ABG Base Excess -7.1 L ABG Hemoglobin 6.8 L Oxyhemoglobin 74.2 L Sodium Potassium Chloride Carbon Dioxide BUN Creatinine Glucose POC Glucose 347 H Lactic Acid Calcium Magnesium AST Alkaline Phosphatase Troponin T Total Protein Albumin Crossmatch See Detail 11/15/21 11/15/21 11/15/21 11:51 13:54 16:40 WBC RBC Hgb Hct MCH RDW Lymph % (Auto) Lymph # (Auto) Seg Neutrophils % Seg Neuts % (Manual) Lymphocytes % (Manual) Seg Neutrophils # Seg Neutrophils # Man Lymphocytes # (Manual) PT APTT Heparin Anti-Xa Level 0.26 L ABG pH ABG pO2 227.2 H ABG HCO3 27.1 H ABG O2 Saturation 99.3 H ABG Base Excess ABG Hemoglobin 5.4 L Oxyhemoglobin Sodium Potassium Chloride Carbon Dioxide BUN Creatinine Glucose POC Glucose 325 H Lactic Acid Calcium Magnesium AST Alkaline Phosphatase Troponin T Total Protein Albumin Crossmatch 11/15/21 11/15/21 11/16/21 17:52 20:48 00:05 WBC RBC Hgb Hct MCH RDW Lymph % (Auto) Lymph # (Auto) Seg Neutrophils % Seg Neuts % (Manual) Lymphocytes % (Manual) Seg Neutrophils # Seg Neutrophils # Man Lymphocytes # (Manual) PT APTT Heparin Anti-Xa Level 0.12 L ABG pH ABG pO2 ABG HCO3 ABG O2 Saturation ABG Base Excess ABG Hemoglobin Oxyhemoglobin Sodium Potassium Chloride Carbon Dioxide BUN Creatinine Glucose POC Glucose 216 H 119 H Lactic Acid Calcium Magnesium AST Alkaline Phosphatase Troponin T Total Protein Albumin Crossmatch 11/16/21 11/16/21 11/16/21 04:30 04:30 05:57 WBC RBC Hgb 7.7 L Hct 24.7 L MCH RDW Lymph % (Auto) Lymph # (Auto) Seg Neutrophils % Seg Neuts % (Manual) Lymphocytes % (Manual) Seg Neutrophils # Seg Neutrophils # Man Lymphocytes # (Manual) PT APTT Heparin Anti-Xa Level < 0.10 L ABG pH ABG pO2 ABG HCO3 ABG O2 Saturation ABG Base Excess ABG Hemoglobin Oxyhemoglobin Sodium Potassium Chloride Carbon Dioxide BUN Creatinine Glucose POC Glucose 135 H Lactic Acid Calcium Magnesium AST Alkaline Phosphatase Troponin T Total Protein Albumin Crossmatch 11/16/21 11/16/21 11/16/21 12:17 12:36 19:36 WBC RBC Hgb Hct MCH RDW Lymph % (Auto) Lymph # (Auto) Seg Neutrophils % Seg Neuts % (Manual) Lymphocytes % (Manual) Seg Neutrophils # Seg Neutrophils # Man Lymphocytes # (Manual) PT APTT Heparin Anti-Xa Level 0.21 L 0.23 L ABG pH ABG pO2 ABG HCO3 ABG O2 Saturation ABG Base Excess ABG Hemoglobin Oxyhemoglobin Sodium Potassium Chloride Carbon Dioxide BUN Creatinine Glucose POC Glucose 144 H Lactic Acid Calcium Magnesium AST Alkaline Phosphatase Troponin T Total Protein Albumin Crossmatch 11/17/21 11/17/21 11/17/21 05:00 05:09 05:09 WBC RBC 3.25 L Hgb 8.1 L Hct 26.3 L MCH 25 L RDW 20.2 H Lymph % (Auto) 7.2 L Lymph # (Auto) 0.5 L Seg Neutrophils % 84.7 H Seg Neuts % (Manual) Lymphocytes % (Manual) Seg Neutrophils # Seg Neutrophils # Man Lymphocytes # (Manual) PT APTT Heparin Anti-Xa Level ABG pH ABG pO2 ABG HCO3 26.6 H ABG O2 Saturation ABG Base Excess ABG Hemoglobin Oxyhemoglobin Sodium 134 L Potassium Chloride 96.0 L Carbon Dioxide BUN Creatinine Glucose POC Glucose Lactic Acid Calcium Magnesium AST Alkaline Phosphatase Troponin T Total Protein Albumin Crossmatch 11/17/21 11/17/21 11/17/21 05:09 11:40 13:42 WBC RBC Hgb Hct MCH RDW Lymph % (Auto) Lymph # (Auto) Seg Neutrophils % Seg Neuts % (Manual) Lymphocytes % (Manual) Seg Neutrophils # Seg Neutrophils # Man Lymphocytes # (Manual) PT APTT Heparin Anti-Xa Level 0.19 L < 0.10 L ABG pH ABG pO2 ABG HCO3 ABG O2 Saturation ABG Base Excess ABG Hemoglobin Oxyhemoglobin Sodium Potassium Chloride Carbon Dioxide BUN Creatinine Glucose POC Glucose 133 H Lactic Acid Calcium Magnesium AST Alkaline Phosphatase Troponin T Total Protein Albumin Crossmatch 11/17/21 11/17/21 11/18/21 16:00 17:42 00:01 WBC RBC Hgb Hct MCH RDW Lymph % (Auto) Lymph # (Auto) Seg Neutrophils % Seg Neuts % (Manual) Lymphocytes % (Manual) Seg Neutrophils # Seg Neutrophils # Man Lymphocytes # (Manual) PT APTT Heparin Anti-Xa Level ABG pH ABG pO2 ABG HCO3 ABG O2 Saturation ABG Base Excess ABG Hemoglobin Oxyhemoglobin Sodium 131 L Potassium Chloride 89.5 L Carbon Dioxide BUN Creatinine Glucose 114 H POC Glucose 120 H 195 H Lactic Acid Calcium Magnesium AST Alkaline Phosphatase Troponin T Total Protein Albumin Crossmatch 11/18/21 11/18/21 11/18/21 03:41 05:02 05:18 WBC RBC Hgb 7.8 L Hct 25.0 L MCH RDW Lymph % (Auto) Lymph # (Auto) Seg Neutrophils % Seg Neuts % (Manual) Lymphocytes % (Manual) Seg Neutrophils # Seg Neutrophils # Man Lymphocytes # (Manual) PT APTT Heparin Anti-Xa Level ABG pH ABG pO2 ABG HCO3 ABG O2 Saturation ABG Base Excess ABG Hemoglobin Oxyhemoglobin Sodium Potassium Chloride Carbon Dioxide BUN Creatinine Glucose POC Glucose 145 H 144 H Lactic Acid Calcium Magnesium AST Alkaline Phosphatase Troponin T Total Protein Albumin Crossmatch 11/18/21 11/18/21 11/18/21 06:15 10:02 11:39 WBC RBC Hgb Hct MCH RDW Lymph % (Auto) Lymph # (Auto) Seg Neutrophils % Seg Neuts % (Manual) Lymphocytes % (Manual) Seg Neutrophils # Seg Neutrophils # Man Lymphocytes # (Manual) PT APTT Heparin Anti-Xa Level ABG pH ABG pO2 ABG HCO3 ABG O2 Saturation ABG Base Excess ABG Hemoglobin Oxyhemoglobin Sodium 131 L Potassium 3.2 L Chloride 85.5 L Carbon Dioxide 33 H D BUN Creatinine Glucose 177 H POC Glucose 136 H 198 H Lactic Acid Calcium Magnesium AST Alkaline Phosphatase Troponin T Total Protein Albumin Crossmatch 11/18/21 11/18/21 11/18/21 14:11 14:11 14:11 WBC 4.1 L RBC 3.29 L Hgb 8.1 L Hct 26.4 L MCH 25 L RDW 20.6 H Lymph % (Auto) Lymph # (Auto) Seg Neutrophils % Seg Neuts % (Manual) Lymphocytes % (Manual) Seg Neutrophils # Seg Neutrophils # Man Lymphocytes # (Manual) PT 15.9 H APTT 61.4 H* Heparin Anti-Xa Level ABG pH ABG pO2 ABG HCO3 ABG O2 Saturation ABG Base Excess ABG Hemoglobin Oxyhemoglobin Sodium 126 L Potassium 3.1 L Chloride 83.8 L Carbon Dioxide BUN 20 H Creatinine Glucose 300 H POC Glucose Lactic Acid Calcium 8.3 L Magnesium AST Alkaline Phosphatase Troponin T Total Protein Albumin Crossmatch 11/18/21 11/18/21 11/18/21 14:45 16:16 23:14 WBC RBC Hgb Hct MCH RDW Lymph % (Auto) Lymph # (Auto) Seg Neutrophils % Seg Neuts % (Manual) Lymphocytes % (Manual) Seg Neutrophils # Seg Neutrophils # Man Lymphocytes # (Manual) PT APTT Heparin Anti-Xa Level ABG pH 7.477 H ABG pO2 ABG HCO3 34.2 H ABG O2 Saturation ABG Base Excess 9.7 H ABG Hemoglobin 6.9 L Oxyhemoglobin Sodium Potassium Chloride Carbon Dioxide BUN Creatinine Glucose POC Glucose 268 H 239 H Lactic Acid Calcium Magnesium AST Alkaline Phosphatase Troponin T Total Protein Albumin Crossmatch 11/19/21 11/19/21 11/19/21 04:37 05:07 11:14 WBC RBC Hgb Hct MCH RDW Lymph % (Auto) Lymph # (Auto) Seg Neutrophils % Seg Neuts % (Manual) Lymphocytes % (Manual) Seg Neutrophils # Seg Neutrophils # Man Lymphocytes # (Manual) PT APTT Heparin Anti-Xa Level ABG pH ABG pO2 ABG HCO3 ABG O2 Saturation ABG Base Excess ABG Hemoglobin Oxyhemoglobin Sodium 129 L Potassium 3.2 L Chloride 82.4 L Carbon Dioxide 39 H D BUN 19 H Creatinine Glucose 123 H POC Glucose 142 H 188 H Lactic Acid Calcium Magnesium AST Alkaline Phosphatase Troponin T Total Protein Albumin Crossmatch 11/19/21 11/19/21 11/20/21 12:37 17:06 05:39 WBC 4.0 L RBC 3.54 L Hgb 8.7 L Hct 28.2 L MCH 25 L RDW 20.8 H Lymph % (Auto) Lymph # (Auto) Seg Neutrophils % Seg Neuts % (Manual) Lymphocytes % (Manual) Seg Neutrophils # Seg Neutrophils # Man Lymphocytes # (Manual) PT APTT Heparin Anti-Xa Level ABG pH ABG pO2 ABG HCO3 ABG O2 Saturation ABG Base Excess ABG Hemoglobin Oxyhemoglobin Sodium Potassium Chloride Carbon Dioxide BUN Creatinine Glucose POC Glucose 186 H Lactic Acid Calcium Magnesium 1.20 L AST Alkaline Phosphatase Troponin T Total Protein Albumin Crossmatch Allied health notes reviewed: nursing
[2021-11-20] MEDS ORDERED: FUROSEMIDE 40 MG TAB PO SCH (10:00)
[2021-11-20] MEDS ORDERED: FUROSEMIDE 40 MG/4 ML INJ IV SCH (10:00)
[2021-11-20] MEDS ORDERED: INSULIN LISPRO 100 UNIT/ML SUB-Q SCH (11:30)
[2021-11-20 12:09] LABS: Blood Urea Nitrogen 27 mg/dL (7-17); Calcium 8.4 mg/dL (8.4-10.2); Hemolysis Index 0
[2021-11-20 12:16] LABS: BUN/Creatinine Ratio 45
[2021-11-20] MEDS: APIXABAN 5 MG TAB PO SCH (12:16)
[2021-11-20] MEDS: FERROUS GLUCONATE 324 MG TAB PO SCH (12:16)
[2021-11-20] MEDS: PRIMIDONE 50 MG TAB PO SCH (12:17)
[2021-11-20] MEDS: DULoxetine 30 MG CAP PO SCH (12:17)
[2021-11-20] MEDS: PANTOPRAZOLE 40 MG TAB PO SCH (12:17)
[2021-11-20] MEDS: levETIRAcetam 500 MG TAB PO SCH (12:18)
[2021-11-20] MEDS: carvediloL 3.125 MG TAB PO SCH (12:18)
[2021-11-20] MEDS: CITALOPRAM 20 MG TAB PO SCH (12:18)
[2021-11-20] MEDS: POTASSIUM CHLORIDE 20 MEQ PACKET PO SCH (12:18)
[2021-11-20] MEDS: LOSARTAN 25 MG TAB PO SCH (12:18)
--- NOTE | 2021-11-20 14:25 | Discharge Summary ---
Providers - Providers Date of Admission: 11/14/21 21:49 Date of discharge: 11/20/21 Attending physician: AMAIRANI REYES MD 11/15/21 08:34 Consult to Physician [CONS] Routine Comment: Consulting Provider: BRIDGER MCGREGOR Physician Instructions: Reason For Exam: Acute PE 11/18/21 12:46 Occupational Therapy Evaluate and Treat [CONS] Routine Comment: Reason For Exam: ADLS impaired Physical Therapy Evaluation and Treat [CONS] Routine Comment: Reason For Exam: debility Primary care physician: [facility] Hospitalization Reason for admission: acute hypoxic respiratory failure Condition: Stable Hospital course: Patient is a 71-year-old female with history of recent acute PE and lower extremity DVT on Eliquis who presented with shortness of breath. She was admitted for acute hypoxic respiratory failure. Patient decompensated and was transferred to ICU. Heparin drip was started and she was weaned to high flow nasal cannula. She was treated with IV Lasix for pulmonary edema. She received 1 unit of blood due to drop in hemoglobin. Patient clinically improvedtransfer out of the ICU. She was evaluated by physical therapy and it was recommended that she go to subacute rehab. The patient refused subacute rehab and home health services from [facility]. It was determined that she needed home oxygen and was discharged once oxygen was delivered to her. Disposition: 01 HOME / SELF CARE / HOMELESS Final Discharge Diagnosis (Prints w/discharge instructions): Acute hypoxic respiratory failure. Community-acquired pneumonia ruled out. Pulmonary edema. Subacute pulmonary embolism. Normocytic anemia. Peripheral artery disease. Hypertension. Type 2 diabetes. GERD Time spent for discharge: 35 minutes Core Measure Documentation - Palliative Care Palliative Care/ Comfort Measures: Not Applicable - Core Measures Any of the following diagnoses?: history only Exam - Physical Exam Narrative exam: GENERAL: Thin woman. In no acute distress. HEENT: Nasal cannula in place at 2 L/min. NECK: Supple. CHEST/LUNGS: CTAB on room air HEART/CARDIOVASCULAR: RRR. No murmur, rubs or gallops appreciated. ABDOMEN: +BS. NT/ND. SKIN: No rashes noted. NEURO: No focal motor deficit. Follows all commands. MUSCULOSKELETAL: No joint effusion EXTREMITIES: Left BKA. No cyanosis, clubbing or edema. PSYCH: Cooperative. - Constitutional Vitals: Temp Pulse Resp BP Pulse Ox 98.2 F 82 19 123/47 96 11/20/21 10:11/20/21 13:55 11/20/21 13:55 11/20/21 10:11/20/21 13:56 Plan Care Plan Goals: Please follow-up with your primary care provider. Continue to use home oxygen until they determined that she no longer needed. Please be sure to take your blood thinner daily. Follow up with: PRIMARY CARE, [Primary Care Provider] - 7 Days Prescriptions: Rosuvastatin (Nf) [Crestor] 10 mg PO QHS 30 Days #60 tab carvediloL [Coreg] 3.125 mg PO BID 30 Days #60 tablet Losartan [Cozaar] 25 mg PO QDAY 30 Days #30 tablet Apixaban [Eliquis] 5 mg PO Q12HR 30 Days #60 tablet levETIRAcetam [Keppra TAB] 500 mg PO BID 30 Days #60 tab Furosemide [Lasix TAB] 40 mg PO QDAY 30 Days #30 tablet
[2021-11-20 18:20] VITALS: BP 123/51
--- NOTE | 2021-11-21 09:30 | Electrocardiograph Report ---
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
== END 2021-11-20 18:38 | disposition home health service (06) | DRG 175 ==
LOC: ED 14:52 → 4A 21:49 → IMCU 11-15 08:00 → 3A 11-19 15:06
PROVIDERS: ADMIT Internal Medicine; ATTEND Student in an Organized Health Care Education/Training Program
PROC: 5A09557 Assistance with Respiratory Ventilation, Greater than 96 Consecutive Hours, Continuous Positive Airway Pressure (ICD-10-PCS; principal; 2021-11-14)
PROC: 30233N1 Transfusion of Nonautologous Red Blood Cells into Peripheral Vein, Percutaneous Approach (ICD-10-PCS; 2021-11-15)
DX: I26.99 Other pulmonary embolism without acute cor pulmonale (principal); J96.01 Acute respiratory failure with hypoxia; J81.1 Chronic pulmonary edema; Z20.822 Contact with and (suspected) exposure to COVID-19; J44.9 Chronic obstructive pulmonary disease, unspecified; K21.9 Gastro-esophageal reflux disease without esophagitis; E11.51 Type 2 diabetes mellitus with diabetic peripheral angiopathy without gangrene; R77.8 Other specified abnormalities of plasma proteins; D64.9 Anemia, unspecified; E78.5 Hyperlipidemia, unspecified; I25.10 Atherosclerotic heart disease of native coronary artery without angina pectoris; Z82.49 Family history of ischemic heart disease and other diseases of the circulatory system; Z89.612 Acquired absence of left leg above knee; Z79.84 Long term (current) use of oral hypoglycemic drugs; Z79.899 Other long term (current) drug therapy; Z88.6 Allergy status to analgesic agent; Z88.0 Allergy status to penicillin; Z88.2 Allergy status to sulfonamides; Z88.8 Allergy status to other drugs, medicaments and biological substances; Z95.1 Presence of aortocoronary bypass graft; E11.65 Type 2 diabetes mellitus with hyperglycemia
CPT/HCPCS: 36415; 36600; 71045; 71250; 74018; 80048; 80053; 82140; 82803; 82962; 83735; 84145; 84484; 85007; 85014; 85018; 85025; 85027; 85049; 85520; 85610; 85730; 86850; 86900; 86901; 86920; 87040; 93005; 94640; 94660; 94760; 96374; 99285; G0378; J2354; J3490; Q9967; J0456; J0696; J1644; J1815; J1940; J2060; J3475; J3480; J7030; J7040; P9016; U0003

== ENCOUNTER 2021-11-21 16:24 | Emergency (ER) | payer MEDICARE ==
--- NOTE | 2021-11-22 06:02 | Emergency Department Report ---
ED General Adult HPI - General Chief complaint: Dyspnea/Respdistress Stated complaint: RONN PUI?: No Time Seen by Provider: 11/21/21 21:15 Source: patient, EMS Mode of arrival: Stretcher Limitations: No Limitations - History of Present Illness Initial comments: PT ARRIVING FROM HOME FOR SOB. 78%RA. RAN OUT OF OXYGEN. WAS RECENTLY DISCHARGED FROM HOSPITAL TODAY BUT RAN OUT OF o2 - Related Data Home Medications Medication Instructions Recorded Confirmed Last Taken DULoxetine [Cymbalta] 30 mg PO BID 10/06/21 11/15/21 Unknown Omeprazole 40 mg PO DAILY 10/06/21 11/15/21 Unknown Primidone [Mysoline] 50 mg PO BID 10/06/21 11/15/21 Unknown glipiZIDE [Glucotrol] 10 mg PO DAILY 10/06/21 11/15/21 Unknown Previous Rx's Medication Instructions Recorded Last Taken Type Citalopram [Celexa] 20 mg PO DAILY 30 Days #30 tablet 10/09/21 Unknown Rx Gabapentin 900 mg PO BID 30 Days #180 capsule 10/09/21 Unknown Rx Metformin HCl [metFORMIN] 1,000 mg PO BID 30 Days #60 tab 10/09/21 Unknown Rx propranoloL [Inderal] 10 mg PO TID 30 Days #90 tab 10/09/21 Unknown Rx Ferrous Gluconate [Fergon 325 MG 324 mg PO TID #90 tablet 11/12/21 Unknown Rx tab] Apixaban [Eliquis] 5 mg PO Q12HR 30 Days #60 tablet 11/20/21 Unknown Rx Furosemide [Lasix TAB] 40 mg PO QDAY 30 Days #30 tablet 11/20/21 Unknown Rx Losartan [Cozaar] 25 mg PO QDAY 30 Days #30 tablet 11/20/21 Unknown Rx Rosuvastatin (Nf) [Crestor] 10 mg PO QHS 30 Days #60 tab 11/20/21 Unknown Rx carvediloL [Coreg] 3.125 mg PO BID 30 Days #60 tablet 11/20/21 Unknown Rx levETIRAcetam [Keppra TAB] 500 mg PO BID 30 Days #60 tab 11/20/21 Unknown Rx Allergies Allergy/AdvReac Type Severity Reaction Status Date / Time acetaminophen [From Tylenol] Allergy CAUSES Verified 11/21/21 16:48 ISSUE WITH LIVER Antihistamines - Alkylamine Allergy Shortness Verified 11/21/21 16:48 of Breath codeine Allergy Headache Verified 11/21/21 16:48 Penicillins Allergy Angioedema Verified 11/21/21 16:48 Sulfa (Sulfonamide Allergy Rash Verified 11/21/21 16:48 Antibiotics) ANTIBIOTICS Allergy Severe EXTREME Uncoded 11/21/21 16:48 STOMACH PAIN ED Review of Systems ROS: Stated complaint: RONN Other details as noted in HPI Constitutional: denies: chills, fever Eyes: denies: eye pain, eye discharge, vision change ENT: denies: ear pain, throat pain Respiratory: denies: cough, shortness of breath, wheezing Cardiovascular: denies: chest pain, palpitations Endocrine: no symptoms reported Gastrointestinal: denies: abdominal pain, nausea, diarrhea Genitourinary: denies: urgency, dysuria, discharge Musculoskeletal: denies: back pain, joint swelling, arthralgia Skin: denies: rash, lesions Neurological: denies: headache, weakness, paresthesias Psychiatric: denies: anxiety, depression Hematological/Lymphatic: denies: easy bleeding, easy bruising ED Past Medical Hx - Past Medical History Hx Hypertension: Yes Hx Heart Attack/AMI: No (pt denies) Hx Congestive Heart Failure: Yes Hx Diabetes: Yes Hx Deep Vein Thrombosis: No Hx GERD: Yes Hx Liver Disease: No Hx Renal Disease: No Hx Sickle Cell Disease: No Hx Seizures: No Hx Asthma: No Hx COPD: Yes Hx HIV: No Additional medical history: hyperlipidemia - Surgical History Hx Open Heart Surgery: Yes (2014) Hx Pacemaker: No Hx Internal Defibrillator: No Additional Surgical History: Neck surgery, back surgery, stents placed in legs?, L leg amputation - Social History Smoking Status: Current Every Day Smoker - Medications Home Medications: Home Medications Medication Instructions Recorded Confirmed Last Taken Type DULoxetine [Cymbalta] 30 mg PO BID 10/06/21 11/15/21 Unknown History Omeprazole 40 mg PO DAILY 10/06/21 11/15/21 Unknown History Primidone [Mysoline] 50 mg PO BID 10/06/21 11/15/21 Unknown History glipiZIDE [Glucotrol] 10 mg PO DAILY 10/06/21 11/15/21 Unknown History Citalopram [Celexa] 20 mg PO DAILY 30 Days #30 tablet 10/09/21 11/15/21 Unknown Rx Gabapentin 900 mg PO BID 30 Days #180 capsule 10/09/21 11/15/21 Unknown Rx Metformin HCl [metFORMIN] 1,000 mg PO BID 30 Days #60 tab 10/09/21 11/15/21 Unknown Rx propranoloL [Inderal] 10 mg PO TID 30 Days #90 tab 10/09/21 11/15/21 Unknown Rx Ferrous Gluconate [Fergon 325 MG 324 mg PO TID #90 tablet 11/12/21 11/15/21 Unknown Rx tab] Apixaban [Eliquis] 5 mg PO Q12HR 30 Days #60 tablet 11/20/21 Unknown Rx Furosemide [Lasix TAB] 40 mg PO QDAY 30 Days #30 tablet 11/20/21 Unknown Rx Losartan [Cozaar] 25 mg PO QDAY 30 Days #30 tablet 11/20/21 Unknown Rx Rosuvastatin (Nf) [Crestor] 10 mg PO QHS 30 Days #60 tab 11/20/21 Unknown Rx carvediloL [Coreg] 3.125 mg PO BID 30 Days #60 tablet 11/20/21 Unknown Rx levETIRAcetam [Keppra TAB] 500 mg PO BID 30 Days #60 tab 11/20/21 Unknown Rx ED Physical Exam - General Limitations: No Limitations General appearance: alert, in no apparent distress - Head Head exam: Present: atraumatic, normocephalic - Eye Eye exam: Present: normal appearance - ENT ENT exam: Present: mucous membranes moist - Neck Neck exam: Present: normal inspection - Respiratory Respiratory exam: Present: normal lung sounds bilaterally. Absent: respiratory distress - Cardiovascular Cardiovascular Exam: Present: regular rate, normal rhythm. Absent: systolic murmur, diastolic murmur, rubs, gallop - GI/Abdominal GI/Abdominal exam: Present: soft, normal bowel sounds - Extremities Exam Extremities exam: Present: normal inspection - Back Exam Back exam: Present: normal inspection - Neurological Exam Neurological exam: Present: alert, oriented X3 - Psychiatric Psychiatric exam: Present: normal affect, normal mood - Skin Skin exam: Present: warm, dry, intact, normal color. Absent: rash ED Course Vital Signs 11/21/21 11/22/21 11/22/21 16:42 00:05 00:15 Temperature 98.2 F Pulse Rate 63 71 Respiratory 22 18 Rate Blood Pressure 130/46 Blood Pressure 117/50 130/56 [Left] O2 Sat by Pulse 98 100 100 Oximetry 11/22/21 11/22/21 11/22/21 00:31 00:45 01:01 Temperature Pulse Rate Respiratory Rate Blood Pressure 141/46 144/51 149/49 Blood Pressure [Left] O2 Sat by Pulse 100 100 100 Oximetry 11/22/21 11/22/21 11/22/21 01:15 01:31 01:45 Temperature Pulse Rate Respiratory Rate Blood Pressure 137/47 133/48 141/52 Blood Pressure [Left] O2 Sat by Pulse 100 100 100 Oximetry 11/22/21 11/22/21 11/22/21 02:01 02:15 02:31 Temperature Pulse Rate Respiratory Rate Blood Pressure 162/57 149/51 155/56 Blood Pressure [Left] O2 Sat by Pulse 100 100 100 Oximetry 11/22/21 11/22/21 11/22/21 02:45 03:01 03:15 Temperature Pulse Rate Respiratory Rate Blood Pressure 134/47 150/53 158/62 Blood Pressure [Left] O2 Sat by Pulse 100 100 100 Oximetry 11/22/21 11/22/21 11/22/21 03:31 03:45 04:00 Temperature Pulse Rate Respiratory Rate Blood Pressure 146/43 150/53 144/49 Blood Pressure [Left] O2 Sat by Pulse 96 99 85 Oximetry 11/22/21 11/22/21 11/22/21 04:15 04:31 04:45 Temperature Pulse Rate Respiratory Rate Blood Pressure 137/47 137/48 160/52 Blood Pressure [Left] O2 Sat by Pulse 100 100 100 Oximetry 11/22/21 11/22/21 11/22/21 05:01 05:16 05:30 Temperature Pulse Rate Respiratory Rate Blood Pressure 150/45 137/48 140/51 Blood Pressure [Left] O2 Sat by Pulse 100 100 100 Oximetry 11/22/21 11/22/21 11/22/21 05:46 10:27 13:06 Temperature 97.9 F Pulse Rate 77 74 Respiratory 18 18 Rate Blood Pressure 150/45 Blood Pressure 55/34 123/66 [Left] O2 Sat by Pulse 100 99 99 Oximetry ED Medical Decision Making - Medical Decision Making WILL GET SOCIAL CNSULT FOR HOME O2 IN AM Critical care attestation.: If time is entered above; I have spent that time in minutes in the direct care of this critically ill patient, excluding procedure time. ED Disposition Clinical Impression: Hypoxia Disposition: HOME / SELF CARE / HOMELESS Is pt being admited?: No Does the pt Need Aspirin: No Condition: Stable Referrals: PARKER GATICA MD [Primary Care Provider] - 3-5 Days
[2021-11-22 13:06] VITALS: BP 123/66
== END 2021-11-22 17:30 | disposition home or self-care (01) ==
LOC: ED 16:24
DX: R09.02 Hypoxemia (principal); F17.200 Nicotine dependence, unspecified, uncomplicated; I10 Essential (primary) hypertension; E11.9 Type 2 diabetes mellitus without complications
CPT/HCPCS: 99283